=== PATIENT | female | born 1970 | race Caucasian/White ===

== ENCOUNTER 2022-03-01 05:24 | Emergency (ER) | payer SELFPAY ==
[2022-03-01] MEDS ORDERED: NA CHLORIDE 0.9% 1,000 ML ONE (07:42)
[2022-03-01] MEDS ORDERED: ONDANSETRON 4 MG/2 ML VIAL ONE (07:42)
[2022-03-01] MEDS ORDERED: FENTANYL CITR 100 MCG/2 ML ONE (07:42)
[2022-03-01 07:50] LABS: Absolute Lymphocytes (CBC) 2.4 K/uL (0.7-4.9); Hematocrit 37.4 % (36.0-45.0); Lymphocytes % 27.9 % (15.3-44.8); MCV 91.2 fL (80-100); MPV 8.4 fL (7.6-11.3)
--- NOTE | 2022-03-01 07:51 | RAD REPORT ---
EXAM DESCRIPTION: RAD - Chest Single View - 03/01/2022 6:49 am CLINICAL HISTORY: COUGH, abdominal pain COMPARISON: None TECHNIQUE: AP portable chest image was obtained 03/01/2022 6:49 am . FINDINGS: Lungs are clear. Heart and vasculature are normal. No measurable pleural effusion and no p neumothorax. No acute bony abnormality seen. No acute aortic findings suspected. IMPRESSION: No acute cardiopulmonary process.
[2022-03-01 07:59] LABS: Protime INR 0.88
[2022-03-01 08:22] LABS: Albumin 3.3 g/dL (3.4-5.0); Bilirubin Direct 0.1 mg/dL (0-0.2); Bilirubin Total 0.3 mg/dL (0.2-1.0); Magnesium 1.6 mg/dL (1.8-2.4); Potassium 3.9 mmol/L (3.5-5.1)
[2022-03-01] MEDS ORDERED: INSULIN -REGULAR HUMAN 50 UNIT/0.5 ML ML ONE (09:09)
--- NOTE | 2022-03-01 09:13 | RAD REPORT ---
EXAM DESCRIPTION: CT - Abdomen Pelvis W Contrast - 03/01/2022 8:49 am CLINICAL HISTORY: Abdominal pain COMPARISON: none. TECHNIQUE: Computed axial tomography of the abdomen pelvis was obtained. 100 cc Isovue-300 was admin istered intravenously. Oral contrast was not requested which limits evaluation of bowel and appendix All CT scans are performed using dose optimization technique as appropriate and may include automated exposure control or mA/KV adjustment according to patient size. FINDINGS: Fatty liver The Spleen, pancreas, adrenal and kidneys appear unremarkable. There is no evidence of diverticulitis. 11.5 centimeter cystic mass contains septations and soft tissue within the pelvis with its epicenter slightly to the right of midline. Bladder is compressed. No significant free fluid. Several small soft tissue structures are present within the anterior pericardial fat. The largest rosie sures 14 x 7 millimeters. These probably represent lymph nodes. IMPRESSION: 11.5 centimeter complex cystic pelvic mass probably arises from the right ovary. An ovar jose j neoplasm is considered most likely
--- NOTE | 2022-03-01 10:13 | RAD REPORT ---
EXAM DESCRIPTION: CT - Thorax Wo Con - 03/01/2022 9:44 am CLINICAL HISTORY: sob COMPARISON: none TECHNIQUE: Computed axial tomography of the chest was obtained. Contrast was not requested. All CT scans are performed using dose optimization technique as appropriate and may include automated exposure control or mA/KV adjustment according to patient size. FINDINGS: The evaluation of mediastinum, maxx and vessels is limited secondary to lack of IV contras t administration. Small cysts within the right lung. Lungs are otherwise clear. Sub centimeter pericardiac in mediastinal lymph nodes. No hilar lymphadenopathy A pleural effusion is not present. No pericardial effusion. Coronary arterial calcifications Sub centimeter pericardiac lymph nodes. IMPRESSION: Sub centimeter pericardiac and mediastinal lymph nodes are nonspecific Otherwise, no acute abnormality displayed
--- NOTE | 2022-03-01 11:09 | RAD REPORT ---
EXAM DESCRIPTION: USExtrem Venous W Compress Bil03/01/2022 10:33 am CLINICAL HISTORY: Leg swelling COMPARISON: none FINDINGS: The common femoral, superficial femoral, popliteal and posterior tibial veins bilaterally are compressible and demonstrate augmentation. Doppler demonstrates good flow. Nonspecific 2.2 x 1.6 x 0.9 centimeter left inguinal lymph node Grayscale, color and spectral analysis performed on all vessels IMPRESSION: No evidence of deep venous thrombosis involving either lower extremity.
--- NOTE | 2022-03-01 11:18 | EDPHYS ---
Physician Documentation [facility] Name: Noy Lang Age: 51 yrs Sex: Female : 1970 Arrival Date: 03/01/2022 Time: 05:43 Bed 6 Private MD: ED Physician Francisco Kincaid HPI: 03/01 07:38 This 51 yrs old Female presents to ER via Ambulatory with complaints of Pain All Over - kdr mostly right flank. 07:38 The patient has had right abdominal and flank pain for a number of months (4). She was kdr admitted to [place] in November for the same. She was diagnosed with a right adnexal mass which required follow-up but she has not done so to date. Now the pain is worse and she seeks further treatment. Onset: The symptoms/episode began/occurred at an unknown time. and became worse. Severity of symptoms: At their worst the symptoms were mild moderate just prior to arrival, in the emergency department the symptoms are unchanged. The patient has experienced similar episodes in the past, chronically, but today's symptoms are worse. The patient has not recently seen a physician, Patient was admitted to [place] in November for the same problem. Historical: - Allergies: 06:29 Codeine; bb - Home Meds: 06:29 Levemir U-100 Insulin 100 unit/mL subcutaneous soln [Active]; Humalog Sub-Q [Active]; bb Metformin Oral [Active]; Lasix Oral [Active]; gabapentin oral [Active]; Metoprolol Tartrate Oral [Active]; Neurontin Oral [Active]; Nitrostat SL [Active]; - PMHx: 06:29 Hypertensive disorder; Diabetes mellitus; Coronary atherosclerosis; Myocardial bb infarction; - PSHx: 06:29 heart stents; bb - Immunization history:: Pfizer x 3. - Social history:: Smoking status: Patient reports the use of cigarette tobacco products. ROS: 07:38 Constitutional: Negative for fever, chills, and weight loss, Eyes: Negative for injury, kdr pain, redness, and discharge, ENT: Negative for injury, pain, and discharge, Neck: Negative for injury, pain, and swelling, Cardiovascular: Negative for chest pain, palpitations, and edema, Respiratory: Negative for shortness of breath, cough, wheezing, and pleuritic chest pain, : Negative for injury, bleeding, discharge, and swelling, MS/Extremity: Negative for injury and deformity, Skin: Negative for injury, rash, and discoloration, Neuro: Negative for headache, weakness, numbness, tingling, and seizure activity. Psych: Negative for depression, anxiety, suicide ideation, homicidal ideation, and hallucinations, Allergy/Immunology: Negative for hives, rash, and allergies, Endocrine: Negative for neck swelling, polydipsia, polyuria, polyphagia, and marked weight changes, Hematologic/Lymphatic: Negative for swollen nodes, abnormal bleeding, and unusual bruising. 07:38 Abdomen/GI: Positive for abdominal pain, nausea, Negative for diarrhea, constipation, abdominal cramps, abdominal distension, anorexia, dysphagia, hematemesis, black/tarry stool, rectal pain, rectal bleeding. 07:38 Back: Positive for flank pain, on the right. Exam: 07:38 Constitutional: This is a well developed, well nourished patient who is awake, alert, kdr and in no acute distress. Head/Face: Normocephalic, atraumatic. Eyes: Pupils equal round and reactive to light, extra-ocular motions intact. Lids and lashes normal. Conjunctiva and sclera are non-icteric and not injected. Cornea within normal limits. Periorbital areas with no swelling, redness, or edema. Neck: Trachea midline, no thyromegaly or masses palpated, and no cervical lymphadenopathy. Supple, full range of motion without nuchal rigidity, or vertebral point tenderness. No Meningismus. Chest/axilla: Normal chest wall appearance and motion. Nontender with no deformity. No lesions are appreciated. Cardiovascular: Regular rate and rhythm with a normal S1 and S2. No gallops, murmurs, or rubs. Normal PMI, no JVD. No pulse deficits. Respiratory: Lungs have equal breath sounds bilaterally, clear to auscultation and percussion. No rales, rhonchi or wheezes noted. No increased work of breathing, no retractions or nasal flaring. Back: No spinal tenderness. No costovertebral tenderness. Full range of motion. Skin: Warm, dry with normal turgor. Normal color with no rashes, no lesions, and no evidence of cellulitis. MS/ Extremity: Pulses equal, no cyanosis. Neurovascular intact. Full, normal range of motion. Neuro: Awake and alert, GCS 15, oriented to person, place, time, and situation. Cranial nerves II-XII grossly intact. Motor strength 5/5 in all extremities. Sensory grossly intact. Cerebellar exam normal. Normal gait. Psych: Awake, alert, with orientation to person, place and time. Behavior, mood, and affect are within normal limits. 07:38 Abdomen/GI: Inspection: obese Bowel sounds: active, Palpation: soft. 09:57 ECG was reviewed by the Attending Physician. kdr Vital Signs: 06:27 BP 159 / 66; Pulse 78; Resp 16 S; Temp 97.7(TE); Pulse Ox 98% on R/A; Weight 76.66 kg bb (R); Height 5 ft. 4 in. (162.56 cm) (R); Pain 7/10; 07:45 BP 164 / 73; Pulse 63; Resp 16; Pulse Ox 98% on R/A; vg1 09:01 BP 159 / 69; Pulse 65; Resp 16; Pulse Ox 99% on R/A; vg1 06:27 Body Mass Index 29.01 (76.66 kg, 162.56 cm) bb MDM: 06:26 Patient medically screened. [facility] 07:38 Data reviewed: vital signs, nurses notes, lab test result(s), radiologic studies. kdr Counseling: I had a detailed discussion with the patient and/or guardian regarding: the historical points, exam findings, and any diagnostic results supporting the discharge/admit diagnosis, lab results, radiology results, the need for outpatient follow up. 03/01 06:28 Order name: Basic Metabolic Panel; Complete Time: 08:38 [facility] 03/01 06:28 Order name: CBC with Diff; Complete Time: 08:38 [facility] 03/01 06:28 Order name: D-Dimer [facility] 03/01 06:28 Order name: LFT's; Complete Time: 08:38 [facility] 03/01 06:28 Order name: Magnesium; Complete Time: 08:38 [facility] 03/01 06:28 Order name: NT PRO-BNP; Complete Time: 08:38 [facility] 03/01 06:28 Order name: PT-INR [facility] 03/01 06:28 Order name: Troponin HS; Complete Time: 08:38 [facility] 03/01 06:28 Order name: XRAY Chest (1 view); Complete Time: 08:38 [facility] 03/01 06:28 Order name: Lipase; Complete Time: 08:38 [facility] 03/01 06:28 Order name: SARS-COV-2 RT PCR (Document "Date of Onset" if Symptomatic); Complete Time: cher 09:20 03/01 06:28 Order name: Flu; Complete Time: 10:39 [facility] 03/01 06:28 Order name: CT Abd/Pelvis - IV Contrast Only; Complete Time: 09:20 [facility] 03/01 08:09 Order name: US Extremity Venous W Compression Trae; Complete Time: 11:15 [facility] 03/01 06:28 Order name: EKG; Complete Time: 06:29 [facility] 03/01 06:28 Order name: Cardiac monitoring; Complete Time: 07:47 [facility] 03/01 06:28 Order name: EKG - Nurse/Tech; Complete Time: 07:47 [facility] 03/01 06:28 Order name: IV Saline Lock; Complete Time: 07:44 [facility] 03/01 06:28 Order name: Labs collected and sent; Complete Time: 07:44 [facility] 03/01 06:28 Order name: O2 Per Protocol; Complete Time: 07:47 [facility] 03/01 06:28 Order name: O2 Sat Monitoring; Complete Time: 07:47 [facility] 03/01 09:37 Order name: Thorax Wo Con; Complete Time: 10:39 EDMS EC:57 Rate is 57 beats/min. Rhythm is regular, Sinus bradycardia with No ectopy. QRS Home is kdr Normal. AR interval is normal. QRS interval is normal. QT interval is normal. Clinical impression: Sinus bradycardia. Administered Medications: 07:42 Drug: NS 0.9% 1000 ml Route: IV; Rate: 1 bolus; Site: left antecubital; vg1 09:14 Follow up: IV Status: Completed infusion; IV Intake: 1000ml vg1 11:26 Follow up: IV Status: Completed infusion; IV Intake: 1000ml vg1 07:42 Drug: Zofran (Ondansetron) 4 mg Route: IVP; Site: left antecubital; vg1 09:01 Follow up: Response: No adverse reaction; Marked relief of symptoms vg1 07:44 Drug: fentaNYL (PF) 50 mcg Route: IVP; Site: left antecubital; vg1 09:01 Follow up: Response: No adverse reaction; Pain is decreased; RASS: Alert and Calm (0) vg1 09:03 Drug: Insulin Regular Human 12 units {Co-Signature: vg1 (Sophie Felton RN).} Route: jl7 IVP; Site: left antecubital; Disposition Summary: 03/01/22 11:17 Discharge Ordered Location: Home kdr Problem: new kdr Symptoms: have improved kdr Condition: Stable kdr Diagnosis - Lower abdominal pain, unspecified - right lateral kdr - Right adnexal mass kdr Followup: kdr - With: Private Physician - When: 2 - 3 days - Reason: If symptoms return, Further diagnostic work-up, Recheck today's complaints, Continuance of care, Re-evaluation by your physician Discharge Instructions: - Discharge Summary Sheet kdr - Ovarian Cancer kdr Forms: - Medication Reconciliation Form kdr - Thank You Letter kdr - Prescription Opioid Use kdr Prescriptions: - Tramadol 50 mg Oral Tablet - take 1 tablet by ORAL route every 8 hours As needed as needed; 20 tablet; kdr Refills: 0, Product Selection Permitted Signatures: Dispatcher [employer] EDMS Alvarez Magaña MD MD cha Rittger, Kevin, MD MD kdr Ballard, Brenda, RN RN bb Zofia Niño RN RN jl7 Sophie Felton RN RN vg1 Sophie Felton RN vg1 Corrections: (The following items were deleted from the chart) 09:37 09:22 Chest For PE Angio+CT.RAD.BRZ ordered. EDMS EDMS
--- NOTE | 2022-03-01 11:18 | ER ---
Nurse's Notes [facility] Name: Noy Lang Age: 51 yrs Sex: Female : 1970 Arrival Date: 03/01/2022 Time: 05:43 Bed 6 Private MD: Diagnosis: Lower abdominal pain, unspecified-right lateral;Right adnexal mass Presentation: 03/01 06:27 Chief complaint: Patient states: she is having abdominal pain, sciatic nerve pain since bb last night recently diagnosed with and ovarian cyst and was seen at [facility]. Coronavirus screen: At this time, the client does not indicate any symptoms associated with coronavirus-19. Ebola Screen: No symptoms or risks identified at this time. Initial Sepsis Screen: Does the patient meet any 2 criteria? No. Patient's initial sepsis screen is negative. Does the patient have a suspected source of infection? No. Patient's initial sepsis screen is negative. Risk Assessment: Do you want to hurt yourself or someone else? Patient reports no desire to harm self or others. Onset of symptoms was February 28, 2022. 06:27 Method Of Arrival: Ambulatory 06:27 Acuity: ARVIND 3 bb Historical: - Allergies: 06:29 Codeine; bb - Home Meds: 06:29 Levemir U-100 Insulin 100 unit/mL subcutaneous soln [Active]; Humalog Sub-Q [Active]; bb Metformin Oral [Active]; Lasix Oral [Active]; gabapentin oral [Active]; Metoprolol Tartrate Oral [Active]; Neurontin Oral [Active]; Nitrostat SL [Active]; - PMHx: 06:29 Hypertensive disorder; Diabetes mellitus; Coronary atherosclerosis; Myocardial bb infarction; - PSHx: 06:29 heart stents; bb - Immunization history:: Pfizer x 3. - Social history:: Smoking status: Patient reports the use of cigarette tobacco products. Screenin:45 Abuse screen: Denies threats or abuse. Nutritional screening: No deficits noted. vg1 Tuberculosis screening: No symptoms or risk factors identified. Fall Risk No fall in past 12 months (0 pts). No secondary diagnosis (0 pts). IV access (20 points). Ambulatory Aid- None/Bed Rest/Nurse Assist (0 pts). Gait- Normal/Bed Rest/Wheelchair (0 pts) Mental Status- Oriented to own ability (0 pts). Total Orta Fall Scale indicates No Risk (0-24 pts). Assessment: 07:35 General: Appears in no apparent distress. uncomfortable, Behavior is calm, cooperative. vg1 Pain: Complains of pain in posterior aspect of right lateral abdomen and right lower quadrant Pain currently is 7 out of 10 on a pain scale. Pain began 1 day ago. Neuro: Level of Consciousness is awake, alert, obeys commands, Oriented to person, place, time, situation. Cardiovascular: Patient's skin is warm and dry. Respiratory: Airway is patent Respiratory effort is even, unlabored. GI: Reports nausea, vomiting, since today. : No signs and/or symptoms were reported regarding the genitourinary system. EENT: No signs and/or symptoms were reported regarding the EENT system. Derm: Skin is intact, is healthy with good turgor. Musculoskeletal: Circulation, motion, and sensation intact. 09:01 Reassessment: Patient appears in no apparent distress at this time. Patient and/or vg1 family updated on plan of care and expected duration. Pain level reassessed. Patient is alert, oriented x 3, equal unlabored respirations, skin warm/dry/pink. 09:57 Reassessment: Patient appears in no apparent distress at this time. No changes from vg1 previously documented assessment. Patient and/or family updated on plan of care and expected duration. Pain level reassessed. Patient is alert, oriented x 3, equal unlabored respirations, skin warm/dry/pink. 11:10 Reassessment: Patient appears in no apparent distress at this time. Patient and/or vg1 family updated on plan of care and expected duration. Pain level reassessed. Patient is alert, oriented x 3, equal unlabored respirations, skin warm/dry/pink. Vital Signs: 06:27 BP 159 / 66; Pulse 78; Resp 16 S; Temp 97.7(TE); Pulse Ox 98% on R/A; Weight 76.66 kg bb (R); Height 5 ft. 4 in. (162.56 cm) (R); Pain 7/10; 07:45 BP 164 / 73; Pulse 63; Resp 16; Pulse Ox 98% on R/A; vg1 09:01 BP 159 / 69; Pulse 65; Resp 16; Pulse Ox 99% on R/A; vg1 06:27 Body Mass Index 29.01 (76.66 kg, 162.56 cm) bb ED Course: 05:43 Patient arrived in ED. ja2 06:26 Alvarez Magaña MD is Attending Physician. cher 06:29 Triage completed. bb 06:29 Arm band placed on Patient placed in an exam room, on a stretcher, on pulse oximetry. bb 06:36 Renzo Rizzo, RN is Primary Nurse. as6 06:51 XRAY Chest (1 view) In Process Unspecified. EDMS 07:07 Attending Physician role handed off by Alvarez Magaña MD kdr 07:07 Francisco Kincaid MD is Attending Physician. kdr 07:43 Initial lab(s) drawn, by ky, sent to lab. COVID swab sent to lab. Flu and/or RSV swab jw7 sent to lab. Inserted saline lock: 20 gauge in left antecubital area, using aseptic technique. Blood collected. 07:44 Flu Sent. jw7 07:44 SARS-COV-2 RT PCR (Document "Date of Onset" if Symptomatic) Sent. jw7 07:44 Basic Metabolic Panel Sent. jw7 07:44 CBC with Diff Sent. jw7 07:44 D-Dimer Sent. jw7 07:44 LFT's Sent. jw7 07:44 Magnesium Sent. jw7 07:44 NT PRO-BNP Sent. jw7 07:44 PT-INR Sent. jw7 07:45 Patient has correct armband on for positive identification. Bed in low position. Call vg1 light in reach. Side rails up X 1. 07:45 Troponin HS Sent. jw7 07:45 No provider procedures requiring assistance completed. vg1 07:47 Primary Nurse role handed off by Renzo Rizzo, RN vg1 07:47 Sophie Felton, RN is Primary Nurse. vg1 07:56 EKG done, by ED staff, reviewed by Francisco Kincaid MD. jw7 08:51 CT Abd/Pelvis - IV Contrast Only In Process Unspecified. EDMS 09:45 Thorax Wo Con In Process Unspecified. EDMS 10:35 US Extremity Venous W Compression Trea In Process Unspecified. EDMS 11:25 IV discontinued, intact, bleeding controlled, No redness/swelling at site. Pressure vg1 dressing applied. Administered Medications: 07:42 Drug: NS 0.9% 1000 ml Route: IV; Rate: 1 bolus; Site: left antecubital; vg1 09:14 Follow up: IV Status: Completed infusion; IV Intake: 1000ml vg1 11:26 Follow up: IV Status: Completed infusion; IV Intake: 1000ml vg1 07:42 Drug: Zofran (Ondansetron) 4 mg Route: IVP; Site: left antecubital; vg1 09:01 Follow up: Response: No adverse reaction; Marked relief of symptoms vg1 07:44 Drug: fentaNYL (PF) 50 mcg Route: IVP; Site: left antecubital; vg1 09:01 Follow up: Response: No adverse reaction; Pain is decreased; RASS: Alert and Calm (0) vg1 09:03 Drug: Insulin Regular Human 12 units {Co-Signature: vg1 (Sophie Felton RN).} Route: jl7 IVP; Site: left antecubital; Medication: 07:45 VIS not applicable for this client. vg1 Intake: 09:14 IV: 1000ml; Total: 1000ml. vg1 11:26 IV: 1000ml; Total: 2000ml. vg1 Outcome: 11:17 Discharge ordered by . kdr 11:26 Discharged to home ambulatory. vg1 11:26 Condition: good 11:26 Discharge instructions given to patient, Instructed on discharge instructions, follow up and referral plans. medication usage, Demonstrated understanding of instructions, follow-up care, medications, Prescriptions given X 1. 11:27 Patient left the ED. vg1 Signatures: Dispatcher [employer] EDAlvarez Hicks MD MD cha Rittger, Kevin, MD MD kdr Ballard, Brenda, RN RN bb Leal, Jahala, RN RN jl7 Sophie Felton RN RN vg1 Meeta Stoner Ashby, RN RN as6 Dora Serna7 Sophie Felton RN vg1
[2022-03-01 11:37] VITALS: TEMP 97.7
[2022-03-01 11:43] VITALS: BP 159/69; O2SAT 99
--- NOTE | 2022-03-02 07:58 | EKG ---
Test Date: 2022-03-01 Test Time: 07:55:08 Car Whacker: SHELBIE MEASUREMENT RESULTS: Intervals: Rate: 57 NV: 150 QRSD: 96 QT: 436 QTc: 424 [place]: P: 66 NV: 150 QRS: -33 T: 63 INTERPRETIVE STATEMENTS: Sinus bradycardia Left axis deviation Moderate voltage criteria for LVH, may be normal variant ST abnormality, possible digitalis effect Abnormal ECG Compared to ECG 09/05/2010 08:21:01 Left-axis deviation now present Left ventricular hypertrophy now present ST (T wave) deviation now present Sinus rhythm no longer present Sinus arrhythmia no longer present Electronically Signed On 03-02-22 07:55:32 CDT by Tr Victor
== END 2022-03-01 11:27 | disposition home or self-care (01) ==
LOC: ER 05:24
DX: R10.31 Right lower quadrant pain (principal); N83.201 Unspecified ovarian cyst, right side; M54.30 Sciatica, unspecified side; I10 Essential (primary) hypertension; E11.9 Type 2 diabetes mellitus without complications; I25.10 Atherosclerotic heart disease of native coronary artery without angina pectoris; I21.9 Acute myocardial infarction, unspecified; Z72.0 Tobacco use; Z88.5 Allergy status to narcotic agent; Z20.822 Contact with and (suspected) exposure to COVID-19
CPT/HCPCS: 36415; 71045; 71250; 74177; 80048; 80076; 83690; 83735; 83880; 84484; 85025; 85379; 85610; 87804; 93005; 93970; 96361; 96374; 96375; 99284; J1815; J2405; J3010; J7030; Q9967; U0003

== ENCOUNTER 2022-04-26 22:23 | Emergency (ER) | payer BC ==
--- OUTSIDE RECORDS SUMMARY | 2022-04-26 22:31 | XMS REPORT | Continuity of Care Document ---
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 2 tablet 59 (two) times a day with meals. furosemide 2021-0 Yes 20mg QD Take 20 mg U T (Lasix) 20 5-11 by mouth 1 Hea lth MG tablet 11:44: (one) time 59 each day. gabapentin 2021-0 Yes 400mg Q.[id number] Take 400 UT (Neurontin) 5-11 [id number] mg by H ealth 400 MG 11:44: 3D mouth 3 capsule 59 (three) times a day. FLUoxetine 2022-0 Yes 40mg QD Take 40 mg U T (PROzac) 40 5-11 by mouth 1 He alth MG capsule 11:44: (one) time 59 each day. metFORMIN 2022-0 Yes 850mg Take 850 UT (Glucophage 5-11 mg by Health ) 850 MG 11:44: mouth 2 tablet 59 (two) times a day with meals. furosemide 2022-0 Yes 20mg QD Take 20 mg U T (Lasix) 20 5-11 by mouth 1 Hea lth MG tablet 11:44: (one) time 59 each day. gabapentin 2022-0 Yes 400mg Q.[id number] Take 400 UT (Neurontin) 5-11 [id number] mg by H ealth 400 MG 11:44: 3D mouth 3 capsule 59 (three) times a day. FLUoxetine 2022-0 Yes 40mg QD Take 40 mg U T (PROzac) 40 5-11 by mouth 1 He alth MG capsule 11:44: (one) time 59 each day. metFORMIN 2022-0 Yes 850mg Take 850 UT (Glucophage 5-11 mg by Health ) 850 MG 11:44: mouth 2 tablet 59 (two) times a day with meals. furosemide 2022-0 Yes 20mg QD Take 20 mg U T (Lasix) 20 5-11 by mouth 1 Hea lth MG tablet 11:44: (one) time 59 each day. gabapentin 2022-0 Yes 400mg Q.[id number] Take 400 UT (Neurontin) 5-11 [id number] mg by H ealth 400 MG 11:44: 3D mouth 3 capsule 59 (three) times a day. FLUoxetine 2022-0 Yes 40mg QD Take 40 mg U T (PROzac) 40 5-11 by mouth 1 He alth MG capsule 11:44: (one) time 59 each day. metFORMIN 2022-0 Yes 850mg Take 850 UT (Glucophage 5-11 mg by Health ) 850 MG 11:44: mouth 2 tablet 59 (two) times a day with meals. furosemide 2022-0 Yes 20mg QD Take 20 mg U T (Lasix) 20 5-11 by mouth 1 Hea lth MG tablet 11:44: (one) time 59 each day. gabapentin Yes 400mg Q.[id number] Take 400 UT (Neurontin) 5-11 [id number] mg by H ealth 400 MG 11:44: 3D mouth 3 capsule 59 (three) times a day. FLUoxetine Yes 40mg QD Take 40 mg U T (PROzac) 40 5-11 by mouth 1 He alth MG capsule 11:44: (one) time 59 each day. metoprolol 2021- No 25mg QD Take 25 mg Malik tartrate 12-1524 by mouth Health (LOPRESSOR) 00:00: 00:00 daily 25 mg 00 :00 tablet furosemide Yes Coronary 20mg QD Take 1 H arris (LASIX) 20 11-30 artery tablet by He alth mg tablet 00:00: disease mouth 00 involving daily [place] heart without angina pectoris, unspecified vessel or lesion type metFORMIN 2021- No Uncontrolle 850mg Q.5D Take 1 King (GLUCOPHAGE 11-30 d type 2 tablet by [facility] ) 850 mg 00:00: 00:00 diabetes mouth 2 tablet 00 :00 mellitus times with daily hyperglycem (with ia meals) metoprolol 2021- No Primary 25mg QD Take 1 H arris succinate 11-30 hypertensio tablet by [facility] (TOPROL XL) 00:00: 00:00 n mouth 25 mg 00 :00 daily extended release tablet gabapentin 2021- No Neuropathy 400mg Q.5D Take 1 Malik (NEURONTIN) 11-30- capsule by H ealth 400 mg 00:00: 00:00 mouth 2 capsule 00 :00 (two) times a day aspirin Yes Coronary 81mg QD Chew and Alonzo rris (ASPIRIN) 11-27 artery swallow 1 Hea lth 81 mg 00:00: disease tablet by chewable 00 involving mouth tablet [place] daily heart without angina pectoris, unspecified vessel or lesion type tropicamide 2021- No Uncontrolle 1[drp] Instill 1 King (MYDRIACYL) 11-27 09-28 d type 2 Drop in Health 0.5 % 00:00: 23:59 diabetes each eye ophthalmic 00 :00 mellitus once as solution with needed for hyperglycem up to 1 ia dose (for poor retina scan image) insulin 2021- No Uncontrolle 60U Q.5D Inject 60 King detemir 11-27 d type 2 Units Health U-100 00:00: 00:00 diabetes under the (LEVEMIR 00 :00 mellitus skin 2 U-100 with times INSULIN) hyperglycem daily 100 unit/mL ia injection terconazole 2021- No Vaginal Insert 1 Malik (TERAZOL 7) 11-27 itching applicator Health 0.4 % 00:00: 23:59 ful vaginal 00 :00 vaginally cream every night at bedtime for 7 days. metFORMIN 2021- No Uncontrolle 850mg Q.5D Take 1 Malik (GLUCOPHAGE 11-27 d type 2 tablet by [facility] ) 850 mg 00:00: 00:00 diabetes mouth 2 tablet 00 :00 mellitus times with daily hyperglycem (with ia meals) gabapentin 2021- No Neuropathy 400mg Q.5D Take 1 Malik (NEURONTIN) 11-27 capsule by H ealth 400 mg 00:00: 00:00 mouth 2 capsule 00 :00 (two) times a day furosemide 2021- No Coronary 20mg QD Take 1 [facility] (LASIX) 20 11-27 artery tablet by H ealth mg tablet 00:00: 00:00 disease mouth 00 :00 involving daily [place] heart without angina pectoris, unspecified vessel or lesion type metoprolol 2021- No Primary 25mg QD Take 1 H arris succinate 11-27 hypertensio tablet by [facility] (TOPROL XL) 00:00: 00:00 n mouth 25 mg 00 :00 daily extended release tablet insulin 2021- No Uncontrolle 10U Inject 10 Malik REGULAR 100 11-27 d type 2 Units He alth unit/mL 00:00: 23:59 diabetes under the injection 00 :00 mellitus skin once with for 1 dose hyperglycem ia INSULIN 2021- No Preventativ Use to Malik SYRINGE 1 11-27 e [employer] inject Hea lth mL 00:00: 23:59 care medication 30GX5/16" 00 :00 once for 1 (TRUEPLUS dose. Use INSULIN 1ML a new 30GX5/16") syringe syringe-nee each time. dle (FLUOCINONI 2019-08 No Sammie Apply Le gacy DE) 0.05 % 09-01 Kiko Pitt Twice a Communi CREA 00:00: 00:00 Day to ty 00 :00 affected Health areas for 10 days (HYDROXYZIN 2019-08 No Sammie TAKE 1 TAB [facility] E HCL) 50 09-01 Kiko Pitt By Mouth Communi MG TABS 00:00: 00:00 BID As ty 00 :00 Needed Health ITCHINESS acyclovir 2019-08 Yes Take 1 Malik (ZOVIRAX) 0-22 tablet(s) Healt h 800 mg 00:00: by mouth tablet 00 Twice a day for HSV suppressio n (LISINOPRIL Yes Hoa 1{Table 1xD TAKE 1 [facility] ) 20 MG 2-12 Ad t} TABLET BY Commu ni TABS 00:00: MOUTH ONCE ty 00 DAILY Health (ONDANSETRO 2017-08 Yes Hoa 1{Table 3xD 1 tablet [facility] N HCL) 4 MG 2-17 Ad t} every 8 Com samantha TABS 00:00: hours as ty 00 needed for Health nausea (FLUOXETINE Yes Hoa 1{Capsu 1xD TAKE 1 [facility] HCL) 40 MG 9-04 Ad le} CAPSULE BY C ommuni CAPS 00:00: MOUTH ONCE ty 00 DAILY Health BROMFED DM Yes Clarissa 10 mL Leg acy (PSEUDOEPH- 3-02 Shrikanth every four Communi BROMPHEN-DM 00:00: hours as ty ) 30-2-10 00 needed for Heal th MG/5ML SYRP cough/katrin estion (CETIRIZINE Yes Clarissa Take 1 L egacy HCL) 10 MG 3-02 Shrikanth tablet Co mmuni TABS 00:00: orally ty 00 once daily Health TESSALON Yes Kate 1 by mouth [facility] PERLES 4-20 Owen 3 times a Communi (BENZONATAT 00:00: day as ty E) 100 MG 00 needed for Heal th CAPS cough (GABAPENTIN 2015-08 Yes Clarissa 1 by mouth [facility] ) 300 MG 2-17 Shrikanth two times C ommuni CAPS 00:00: a day ty 00 [facility] mometasone 2015-08 Yes Seasonal 1{spray QD 1 Mineral by King (NASONEX) 1-30 allergies } each Healt h 50 00:00: nostril mcg/actuati 00 route on nasal daily. spray azithromyci 2015-08- No Acute URI Take 2 King n 09-26- tablets by [facility] (ZITHROMAX) 00:00: 00:00 mouth on 250 mg 00 :00 the first tablet day, then take one tablet every day for the next 4 days. cetirizine 2015-08- No Acute URI 10mg QD Take 1 [facility] (ZYRTEC) 10 09-26 tablet by alth mg tablet 00:00: 00:00 mouth 00 :00 daily. (METFORMIN 2015-08 Yes Hoa 1{Table 2xD 1 by mouth [facility] HCL) 1000 0-19 Ad t} twice a Commu ni MG TABS 00:00: day ty 00 [facility] 1ST TIER 2015-08 Yes Clarissa use 5 Leg[facility] y UNIFINE 0-19 Shrikanth times Commun i PENTIPS 00:00: daily ty (INSULIN 00 Health PEN NEEDLE) 31G X 5 MM INSULIN 2015-08 Yes Clarissa use as Leg[facility] y SYRINGE 0-19 Shrikanth directed, Co mmuni (INSULIN 00:00: use 5 x ty SYRINGE-NEE 00 daily Health DLE U-100) 29G X 1/2" 1 ML (SIMVASTATI 2015-08 Yes Clarissa 1 By Mouth [facility] N) 20 MG 0-19 Shrikanth take at Com samantha TABS 00:00: bedtime ty 00 [facility] HUMALOG 2015-08 Yes Clarsisa inject 25 [place] [facility] (INSULIN 0-19 Shrikanth units Commu ni LISPRO) 100 00:00: Three ty UNIT/ML 00 Times a Health SOCT Day with meals. LANTUS 2015-08 Yes Clarissa inject 80 Leg acy (INSULIN 0-19 Shrikanth units Commu ni GLARGINE) 00:00: Twice a ty 100 UNIT/ML 00 Day Health SOLN azithromyci 2021- No Tobacco use Take 2 King palma 05-27 disorder tablets by [facility] (ZITHROMAX) 00:00: 00:00 mouth on 250 mg 00 :00 the first tablet day, then take one tablet every day for the next 4 days. budesonide- 2021- No Reactive 2{puff} Q.5D Inhale 2 Malik formoterol 830 08-16 airway Puffs by alth (SYMBICORT) 00:00: 00:00 disease, mouth 2 80-4.5 00 :00 mild times mcg/actuati intermitten daily on inhaler t, Inhale 2 uncomplicat puff by ed mouth 2 time a day. Rinse mouth after each use.. INSULIN Yes Medication Use to Alonzo rris SYRINGE 1mL 03-09 refill inject [facility] 30GX5/16" 00:00: medication syringe-nee 00 3 times dle daily. Use a new syringe each time.. blood [facility] sugars 3 Health test strips 00:00: times a 00 day. cetirizine 2021- No Seasonal 10mg QD Take 1 Malik (ZYRTEC) 10 03-09 allergies tablet by [facility] mg tablet 00:00: 00:00 mouth 00 :00 daily. lisinopril 2021- No Medication 2.5mg QD Take 1 Malik (PRINIVIL, 03-09 refill tablet by uzma DEVINE) 00:00: 00:00 mouth 2.5 mg 00 :00 daily. tablet atorvastati 2021- No Medication 40mg Take 1 Malik n (LIPITOR) 03-09 refill tablet by [facility] 40 mg 00:00: 00:00 mouth at tablet 00 :00 bedtime nightly. FLUoxetine 2021- No Medication 60mg QD Take 3 Malik (PROZAC) 20 03-09 [facility] capsule 00:00: 00:00 by mouth 00 :00 daily. metFORMIN 2021- No Medication 850mg Q.5D Take 1 Malik (GLUCOPHAGE 03-09 refill tablet by [facility] ) 850 mg 00:00: 00:00 mouth 2 tablet 00 :00 times daily (with meals). metoprolol 2016-0 2022- No Medication 12.5mg Q.5D Take 1/2 ( Malik tartrate 03-09 refill 0.5) Health (LOPRESSOR) 00:00: 00:00 tablets by 25 mg 00 :00 mouth 2 tablet times daily. gabapentin 2021- No Medication 300mg Take 1 Malik (NEURONTIN) 03-09 refill capsule by [facility] 300 mg 00:00: 00:00 mouth 3 capsule 00 :00 times daily. insulin 2021- No Diabetes Sliding Alonzo rris lispro 01-22 mellitus scale If Heal th (HUMALOG) 00:00: 00:00 without glucose 100 unit/mL 00 :00 complicatio >200<250 injection n inject 3 Units If >250<300 inject 6 Units If >300<35 0 inject 9Units Check blood sugar 30 minutes before meals.. ergocalcife Yes Diabetes [id number] Take 1 Trimble rol 27 mellitus capsule by [facility] (VITAMIN 00:00: due to mouth D2) 50,000 00 underlying weekly. unit condition capsule with diabetic nephropathy gabapentin 2021- No Hip pain 300mg Q.5D Take 1 Malik (NEURONTIN) 11-22 capsule by ealt 300 mg 00:00: 00:00 mouth 2 capsule 00 :00 times daily. predniSONE 2021- No Diabetes Take 3 Malik (DELTASONE) 04-23 mellitus tabs daily Health 20 mg 00:00: 00:00 due to for three tablet 00 :00 underlying days then condition 2 tabs with daily for diabetic three days nephropathy then take 1 tab daily for 7 days. 1 mL 2021- No Throat pain Take 5 ml Trimble diphenhydrA 04-23 by mouth Hea lth MINE 00:00: 00:00 twice syrup-1 mL 00 :00 daily.comp lidocaine ound at mucosal :[place] solution-1 Pharmacy mL nystatin oral suspension oral suspension- CMPD ibuprofen 2021- No Acute 800mg Take 1 Alberto ris (MOTRIN) 10-25 tonsillitis tablet by [facility] 800 mg 00:00: 00:00 , mouth tablet 00 :00 unspecified every 8 etiology hours as needed for Pain. cetirizine Yes Acute 10mg QD Take 1 Joe is (ZYRTEC) 10 2-25 pharyngitis tablet by [facility] mg tablet 00:00: , mouth 00 unspecified daily. etiology blood Yes DM w/o USE Malik glucose 2-11 complicatio DIRECTED 2 [facility] (BLOOD 00:00: n type II TIMES A GLUCOSE 00 DAY TEST STRIPS) test strips mometasone 2014-08 Yes Subacute 2{spray QD use 2 Malik (NASONEX) 1-19 maxillary } Sprays by [facility] 50 00:00: sinusitis each mcg/actuati 00 nostril on nasal route spray daily. cetirizine 2014-08 Yes Subacute 10mg QD Take 1 H arris (ZYRTEC) 10 1-19 maxillary tablet by [facility] mg tablet 00:00: sinusitis mouth 00 daily. nitroGLYCER 2014-08- No Ischemic Dissolve 1 Malik IN 09-16 heart tablet [facility] (NITROSTAT) 00:00: 00:00 disease under the 0.4 mg 00 :00 tongue sublingual every 5 tablet minutes as needed, up to 3 times. If chest pain persists, call 911. albuterol 2014-08- No Reactive 2{puff} Inhale 2 Malik (VENTOLIN 09-1616 airway Puffs by [facility] HFA,PROVENT 00:00: 00:00 disease, mouth 4 IL 00 :00 mild times HFA,PROAIR intermitten daily as HFA) 90 t, needed for mcg/actuati uncomplicat Wheezing. on inhaler ed aspirin 2014-08- No Essential 81mg QD Chew and King (ASPIRIN) 09-16 04 hypertensio swallow 1 [facility] 81 mg 00:00: 00:00 n, benign tablet by chewable 00 :00 mouth tablet daily. loratadine 2014-08 Yes Acute 10mg QD Take 1 Joe is (CLARITIN) 0-13 bronchitis tablet by [facility] 10 mg 00:00: due to mouth tablet 00 other daily. specified organisms famotidine 2014-08 Yes Medication 40mg QD Take 2 Malik (PEPCID) 20 0-12 refill tablets by [facility] mg tablet 00:00: mouth 00 daily. loratadine 2014-08- No Other 10mg QD Take 1 Alberto ris (CLARITIN) 0-12 08-26 allergic tablet by [facility] 10 mg 00:00: 00:00 rhinitis mouth tablet 00 :00 daily Take 1 tablet by mouth once a day.. triamcinolo Yes Type II or Q.5D Apply to King ne 05-27 unspecified affected Heal th (KENALOG) 00:00: type area 2 0.025 % 00 diabetes times topical mellitus daily. cream without mention of complicatio n, not stated as uncontrolle d insulin No Type II or Inject 80 Malik glargine 05-27 04 unspecified units He alth (LANTUS) 00:00: 00:00 type under the 100 unit/mL 00 :00 diabetes skin every injection mellitus evening. without mention of complicatio n, not stated as uncontrolle d hydrocortis Yes Contact Q.5D Apply to Malik cox monett 2.5 % 03-05 dermatitis affected [facility] ointment 00:00: area 2 00 times daily. guaiFENesin 2021- No Bronchitis, 600mg Q.5D Take 1 Trimble SR 02-20 not tablet by [facility] (MUCINEX) 00:00: 00:00 specified mouth 2 600 mg 00 :00 as acute or times extended chronic daily Take release 1 tablet tablet twice a day as needed for cough and chest congestion .. INSULIN Yes Type II or Use to Alonzo rris SYRINGE 1mL 18 unspecified inject Health 30GX5/16" 00:00: type insulin syringe-nee diabetes Use as dle mellitus directed. without Use a new mention of syringe complicatio each time. n, not stated as uncontrolle d mometasone 2021- No Allergic 2{spray QD 2 Sprays Malik (NASONEX) 01-22 rhinitis, } by each H ealth 50 00:00: 00:00 cause nostril mcg/actuati 00 :00 unspecified route on nasal daily. spray fluorouraci 2021- No Actinic Q.5D Apply to [place] (EFUDEX) 09-10 keratosis affected Health 5 % topical 00:00: 00:00 area 2 cream 00 :00 times daily For 2 weeks or till effect. glucose Yes Type II or 4 times H arris blood test 3-21 unspecified weekly. Health (PRECISION 00:00: type XTRA) strip 00 diabetes mellitus without mention of complicatio n, not stated as uncontrolle d LANCETS 0 Yes Type II or 4 times H arris 3-21 [facility] 00 diabetes mellitus without mention of complicatio n, not stated as uncontrolle d Immunizations Ordered Immunization Filled Immunization Date Status Commen ts Source Name Name flu vax 2017-07-30 Completed [facility] 12:28:45 Health flu [facility] 2016-06-16 [facility] Influenza Vaccine 2015-05-27 Completed [facility] 00:00:00 Influenza Vaccine 2014-06-19 Completed [facility] 00:00:00 PPV 23 Pneumococcal 2012-08-31 Completed [facility] Polysaccaride 00:00:00 Influenza Vaccine 2012-08-01 Completed [facility] 00:00:00 Tdap Tetanus, 2012-08-01 Completed [facility] th diphtheria, 00:00:00 acellular pertussis Vaccine Vital Signs Vital Name Observation Time Observation Value Comments Source Systolic blood 2022-01-06 16:40:00 128 mm[Hg] [facility] Diastolic blood 2022-01-06 16:40:00 63 mm[Hg] [facility] pressure Heart rate 2022-01-06 16:40:00 70 /min [facility] Body temperature 2022-01-06 16:40:00 36.28 Melody [facility] Body height 2022-01-06 16:40:00 162.6 cm [facility] Body weight 2022-01-06 16:40:00 75.978 kg [facility] BMI 2022-01-06 16:40:00 28.75 kg/m2 [facility] Systolic blood 2022-04-23 12:30:00 169 mm[Hg] [facility] pressure Diastolic blood 2022-04-23 12:30:00 51 mm[Hg] Joei s [facility] pressure Heart rate 2022-04-23 12:30:00 58 /min [facility] Body temperature 2022-04-23 12:30:00 36.61 Melody [facility] Respiratory rate 2022-04-23 12:30:00 19 /min [facility] Body height 2022-04-23 12:30:00 162.6 cm [facility] Body weight 2022-04-23 12:30:00 74.027 kg [facility] BMI 2022-04-23 12:30:00 28.01 kg/m2 [facility] Oxygen saturation in 2022-02-03 15:32:00 98 /min [facility] Arterial blood by Pulse oximetry temperature site 2020-07-02 15:12:44 oral [facility] Health respiratory rate E&M 2020-07-02 15:12:44 16 /min [facility] Health pulse rate 2020-07-02 15:12:44 60 /min [facility] blood pressure, 2020-07-02 15:12:44 61 mm[Hg] [facility] diastolic Health blood pressure, 2020-07-02 15:12:44 119 mm[Hg] Leg[facility] systolic Health weight E&M 2020-07-02 15:12:44 169 [lb_av] [facility] weight in kilograms 2020-07-02 15:12:44 76.82 kg L [facility] E& Health height in 2020-07-02 15:12:44 162.56 cm [facility] centimeters E&M Health oxygen saturation, 2020-07-02 15:12:44 98 % [facility] 2020-07-02 15:12:44 98.0 [degF] Leg[facility] oxygen saturation, 2018-08-14 10:54:52 94 % [facility] blood pressure, 2018-08-14 10:54:52 72 mm[Hg] Leg[facility] diastolic Health blood pressure, 2018-08-14 10:54:52 147 mm[Hg] [facility] systolic Health pulse rate 2018-08-14 10:54:52 81 /min [facility] Health temperature E&M 2018-08-14 10:54:52 98.4 [degF] [facility] Health weight E&M 2018-08-14 10:54:52 171.25 [lb_av] [facility] weight in kilograms 2018-08-14 10:54:52 77.84 kg L [facility] E& Health temperature site 2018-08-14 10:54:52 oral [facility] Health height in 2018-08-14 10:54:52 162.56 [facility] E&M Health weight E&M 2018-07-04 14:01:38 184 [lb_av] [facility] weight in kilograms 2018-07-04 14:01:38 83.64 kg L [facility] E& Health blood pressure, 2018-07-04 14:01:38 83 mm[Hg] Leg[facility] diastolic Health blood pressure, 2018-07-04 14:01:38 133 mm[Hg] [facility] systolic Health oxygen saturation, 2018-07-04 14:01:38 95 % [facility] oximetry Health pulse rate 2018-07-04 14:01:38 90 /min [facility] temperature E&M 2018-07-04 14:01:38 98.2 [degF] [facility] Health temperature site 2018-07-04 14:01:38 oral [facility] Health height in 2018-07-04 14:01:38 162.56 [facility] centimeters E&M Health blood pressure, 2017-10-28 08:14:02 72 mm[Hg] [facility] diastolic Health blood pressure, 2017-10-28 08:14:02 123 mm[Hg] Leg[facility] systolic Health oxygen saturation, 2017-10-28 08:14:02 97 % [facility] oximetry Health pulse rate 2017-10-28 08:14:02 85 /min [facility] temperature E&M 2017-10-28 08:14:02 96.9 [degF] Leg[facility] Health weight E&M 2017-10-28 08:14:02 185.13 [lb_av] [facility] in [facility] 2017-10-28 08:14:02 84.15 kg L [facility] E& Health temperature site 2017-10-28 08:14:02 tympanic [facility] Health height in 2017-10-28 08:14:02 162.56 cm [facility] centimeters E&M Health pulse rate 2017-07-30 12:28:45 80 /min [facility] Health blood pressure, 2017-07-30 12:28:45 72 mm[Hg] [facility] diastolic Health blood pressure, 2017-07-30 12:28:45 146 mm[Hg] [facility] systolic Health respiratory rate E&M 2017-07-30 12:28:45 16 /min [facility] Health oxygen saturation, 2017-07-30 12:28:45 98 % [facility]&M 2017-07-30 12:28:45 98.0 [degF] [facility] weight E&M 2017-07-30 12:28:45 184 [lb_av] [facility] weight in kilograms 2017-07-30 12:28:45 83.64 kg L [facility] E& Health temperature site 2017-07-30 12:28:45 tympanic [facility] Health height in 2017-07-30 12:28:45 162.56 cm [facility] centimeters E&M Health pulse rate 2016-12-16 13:55:25 82 /min [facility] Health blood pressure, 2016-12-16 13:55:25 77 mm[Hg] [facility] diastolic Health blood pressure, 2016-12-16 13:55:25 155 mm[Hg] [facility] systolic Health oxygen saturation, 2016-12-16 13:55:25 96 % [facility] E&M 2016-12-16 13:55:25 99.6 [degF] [facility] Health weight E&M 2016-12-16 13:55:25 185.60 [lb_av] [facility] Health weight in kilograms 2016-12-16 13:55:25 84.36 kg L [facility] E& Health temperature site 2016-12-16 13:55:25 tympanic [facility] height in 2016-12-16 13:55:25 162.56 cm [facility] centimeters E&M Health pulse rate 2016-08-14 09:50:08 76 /min [facility] Health blood pressure, 2016-08-14 09:50:08 67 mm[Hg] [facility] diastolic Health blood pressure, 2016-08-14 09:50:08 111 mm[Hg] [facility] systolic Health temperature site 2016-08-14 09:50:08 tympanic [facility] Health temperature E&M 2016-08-14 09:50:08 96.9 [degF] [facility] oxygen saturation, 2016-08-14 09:50:08 97 % [facility] oximetry Health weight E&M 2016-08-14 09:50:08 179.25 [lb_av] [facility] weight in kilograms 2016-08-14 09:50:08 81.48 kg L [facility] E& Health height in 2016-08-14 09:50:08 162.56 cm [facility] centimeters [facility] weight E&M 2016-06-16 08:28:26 178.50 [lb_av] [facility] weight in kilograms 2016-06-16 08:28:26 81.14 kg L [facility] oxygen saturation, 2016-06-16 08:28:26 98 % [facility] oximetry Health pulse rate 2016-06-16 08:28:26 73 /[facility] blood pressure, 2016-06-16 08:28:26 69 mm[Hg] [facility] diastolic Health blood pressure, 2016-06-16 08:28:26 113 mm[Hg] [facility] systolic Health temperature E&M 2016-06-16 08:28:26 96.9 [degF] [facility] 2016-06-16 08:28:26 162.56 cm [facility] centimeters [facility] temperature site 2016-06-16 08:28:26 tympanic [facility] Procedures Procedure Date / Time Performed Performing Clinician Sour e MICROALBUMIN / CREATININE 2022-04-23 12:28:00 Polly Herbert [facility] URINE RATIO HEMOGLOBIN A1C 2022-04-23 12:21:00 Polly Herbert [facility] COMPREHENSIVE METABOLIC 2022-04-23 12:21:00 Polly Herbert [facility] PANEL CBC (WITHOUT DIFFERENTIAL) 2022-04-23 12:21:00 Polly Herbert [facility] CT ABDOMEN AND PELVIS 2022-04-15 14:21:00 Sweetie Grimes [facility] CONTRAST CT CHEST W CONTRAST 2022-04-15 14:21:00 Yodit Gonzalez [facility] HPV HIGH-RISK 2022-04-09 14:21:00 Yodit Gonzalez [facility] ENDOMETRIAL BIOPSY SUCTION 2022-04-09 14:13:31 Blayne Robbins [facility] TYPE TISSUE EXAM 2022-04-09 14:04:00 Yodit Gonzalez [facility] PAP TEST CYTOLOGY 2022-04-09 14:04:00 Yodit Gonzalez [facility] CREATININE 2022-03-18 14:43:00 Sweetie Grimes [facility] CA 125 2022-03-16 10:51:00 Thalia Sutton [facility] CA 19-9 2022-03-16 10:51:00 Thalia Sutton [facility] h CEA 2022-03-16 10:51:00 Thalia Sutton [facility] TRANSTHORACIC ECHO (TTE) 2022-02-10 09:55:00 Joie [facility] COMPLETE [id number] LEAD EKG 2022-02-03 15:41:10 Natali Siddiqui [facility] DIABETIC FOOT EXAM 2021-11-27 09:28:06 Joie [facility] GLUCOSE POC 2021-11-27 09:24:00 Salter [facility] GLUCOSE POC 2021-11-27 08:43[facility] 2021-11-27 [facility]:00[facility] URINE [facility]IPSTICK, WITHOUT 2021-11-27 00:00:00 Joie [facility] MICRO Plan of Care Planned Activity Planned Date Details Comments Source Future Scheduled Test 2027-04-09 Screening for malignant [facility] 00:00:00 neoplasm of cervix (procedure) [code = 978269044] Future Scheduled Test 2027-04-09 Screening for malignant [facility] 00:00:00 neoplasm of cervix (procedure) [code = 312355851] Future Scheduled Test 2023-04-23 Hemoglobin A1c [facility] 00:00:00 measurement (procedure) [code = 52254438] Future Scheduled Test 2023-04-23 Urine screening for [facility] 00:00:00 protein (procedure) [code = 588825409] Future Scheduled Test 2022-11-27 DM Foot Exam (Yearly) [facility] 00:00:00 [code = DM Foot Exam (Yearly)] Future Scheduled Test 2021-06-23 DM Retinal Exam [facility] 00:00:00 (Yearly) [code = DM Retinal Exam (Yearly)] Future Scheduled Test 2019 Screening for malignant [facility] 00:00:00 neoplasm of colon (procedure) [code = 544731776] Future Scheduled Test 2016-12-03 CORONARY ARTERY DISEASE [facility] 00:00:00 AGE 18 AND UP [code = CORONARY ARTERY DISEASE AGE 18 AND UP] Future Scheduled Test 2015-05-08 Breast Cancer Scrn [facility] 00:00:00 (Yearly) [code = Breast Cancer Scrn (Yearly)] Future Scheduled Test 2013-08-31 Imm Pneumococcal 0-64 [facility] 00:00:00 (2 - PCV) [code = Imm Pneumococcal 0-64 (2 - PCV)] Future Scheduled Test 1970-04-04 COVID-19 Vaccine (#1) [facility] 00:00:00 [code = COVID-19 Vaccine (#1)] Future Scheduled Test 1969 Fluoride Varnish [code [facility] 00:00:00 = Fluoride Varnish] Encounters Start End Encounter Admission Attending Care Care Encounter Source Date/Time Date/Time Type Type Clinicians Facility Department ID 2022-02-18 Outpatient RYAN, [facility] [id number] [place] 03:25:44 [facility] 2022-02-17 Outpatient [facility] [id number] [place] 09:29:23 [facility] 2022-01-06 Outpatient HEAVENLY, [facility] [id number] [place] 11:29:35 NGOCNU [facility] 2021-12-16 Outpatient RYAN, [facility] [id number] [place] 09:44:42 [facility] 2021-06-14 Outpatient lc.maryasi [facility] [id number] [place] 15:39:19 [facility]ulam [id number] 2021-[facility]-11 Outpatient lc.case [facility] [id number] [place] 21:00:49 [id number] [facility] 2021-06-11 Outpatient diandra [facility] [id number] [place] 19:26:01 th [id number] [facility] 2022-07-12 2022-07-12 Outpatient [facility] [id number] [place] 00:00:00 00:00:00 [facility] 2022-06-28 2022-06-28 Outpatient SHAMIM, [facility] [id number] [place] 00:00:00 00:00:00 AFROZ [facility] 2022-06-21 2022-06-21 Outpatient [facility] [id number] [place] 00:00:00 00:00:00 Health 2022-05-31 2022-05-31 Outpatient [facility] [id number] [place] 00:00:00 00:00:00 [facility] 2022-05-10 2022-05-10 Outpatient [facility] [id number] [place] 00:00:00 00:00:00 [facility] 2022-05-07 2022-05-07 Outpatient [facility] [id number] [place] 00:00:00 00:00:00 [facility] 2022-05-07 2022-05-07 Outpatient [facility] [id number] [place] 00:00:00 00:00:00 [facility] 2022-05-06 2022-05-06 Outpatient SHAY, [facility] [id number] [place] 00:00:00 00:00:00 [facility] 2022-04-30 2022-04-30 Outpatient LORETTA, [facility] [id number] [place] 00:00:00 00:00:00 LAVERNE Armijo 2022-04-29 2022-04-29 [facility] [id number] [place] 00:00:00 00:00:00 [facility] 2022-04-29 2022-04-29 Outpatient LESLEY, [facility] [id number] [place] 00:00:00 00:00:00 THALIA [facility] 2022-04-26 2022-04-26 [facility] [id number] [place] 00:00:00 00:00:00 [facility] 2022-04-23 2022-04-23 [facility] [id number] [place] 12:30:22 13:58:38 MARY regalado 2022-04-23 2022-04-23 Office Mary Blevins [facility] [id number] [place] 12:00:00 13:58:38 Visit Thomas Felix [facility] 2022-04-23 2022-04-23 Outpatient [facility] [id number] [place] 12:19:18 12:22:01 [facility] 2022-04-23 2022-04-23 [facility] [id number] [place] 10:10:39 12:17:06 [facility] 2022-04-23 2022-04-23 Office Cammy Dial [facility] [id number] [place] 09:20:00 12:17:06 Visit Shay, [facility] Polly Herbert 2022-04-23 2022-04-23 [facility] [id number] [place] 00:00:00 00:00:00 [facility] 2022-04-23 2022-04-23 [facility] [id number] [place] 00:00:00 00:00:00 [facility] 2022-04-23 2022-04-23 Outpatient [facility] [id number] [place] 00:00:00 00:00:00 [facility] 2022-04-23 2022-04-23 [facility] [id number] [place] 00:00:00 00:00:00 Only Polly Isabella [facility] 2022-04-23 2022-04-23 Nurse [facility] [id number] [place] 00:00:00 00:00:00 Polly Mason [facility] 2022-04-23 2022-04-23 [facility] [id number] [place] 00:00:00 00:00:00 Only [facility] 2022-04-15 2022-04-15 Ancillary [facility] [id number] [place] 13:20:00 14:24:27 Procedure [facility] 2022-04-15 2022-04-15 Outpatient [facility] [id number] [place] 13:10:09 14:24:27 [facility] 2022-04-14 2022-04-14 Refill Danielle Wilson [facility] [id number] [place] 00:00:00 00:00:00 [facility] 2022-04-14 2022-04-14 Refill Cornelio, [facility] [id number] [place] 00:00:00 00:00:00 [facility] 2022-04-13 2022-04-13 Nurse Joshua, [facility] [id number] [place] 00:00:00 00:00:00 Triage [facility] 2022-04-13 2022-04-13 Caroline Roberson, [facility] [id number] [place] 00:00:00 00:00:00 Only Clarissa Fuller [facility] 2022-04-13 2022-04-13 Refill Cornelio, [facility] [id number] [place] 00:00:00 00:00:00 [facility] 2022-04-13 2022-04-13 Refill Joie, [facility] [id number] [place] 00:00:00 00:00:00 Deysi Fabian [facility] 2022-04-13 2022-04-13 Refill Dov, [facility] [id number] [place] 00:00:00 00:00:00 Misba S [facility] 2022-04-13 2022-04-13 Refill Faustinella [facility] [id number] [place] 00:00:00 00:00:00 , Shade [facility] 2022-04-13 2022-04-13 Refill Daily, [facility] [id number] [place] 00:00:00 00:00:00 Radha Mason [facility] 2022-04-13 2022-04-13 Refill Lesley [facility] [id number] [place] 00:00:00 00:00:00 Thalia Mason [facility] 2022-04-12 2022-04-12 Refill Cornelio, [facility] [id number] [place] 00:00:00 00:00:00 [facility] 2022-04-09 2022-04-09 Outpatient [facility] [id number] [place] 11:53:38 14:28:10 KARIMEMEERA [facility] 2022-04-09 2022-04-09 Office Mary Blevins [facility] [id number] [place] 11:30:00 14:28:10 Visit Yodit Gonzalez [facility] 2022-04-09 2022-04-09 Outpatient [facility] [id number] [place] 00:00:00 00:00:00 MARY Silt 2022-04-09 2022-04-09 Orders Lisa, [facility] [id number] [place] 00:00:00 00:00:00 Only Yodit dixon 2022-03-18 2022-03-18 Outpatient [facility] [id number] [place] 14:40:35 14:44:03 [facility] 2022-03-18 2022-03-18 Office Cornelio, [facility] [id number] [place] 13:30:00 14:28:59 Visit [facility] 2022-03-18 2022-03-18 [facility] [id number] [place] 13:21:35 14:28:59 [facility] 2022-03-18 2022-03-18 [facility] [id number] [place] 00:00:00 00:00:00 [facility] 2022-03-17 2022-03-17 Nurse Joshua, [facility] [id number] [place] 00:00:00 00:00:00 [facility] 2022-03-16 2022-03-16 Outpatient LESLEY, [facility] [id number] [place] 10:43:39 10:51:12 [facility] 2022-03-16 2022-03-16 Outpatient LESLEY, [facility] [id number] [place] 00:00:00 00:00:00 [facility] 2022-03-16 2022-03-16 Outpatient LESLEY, [facility] [id number] [place] 00:00:00 00:00:00 [facility] 2022-03-15 2022-03-15 Refill Salter, [facility] [id number] [place] 00:00:00 00:00:00 Deysi Fabian Silt 2022-03-15 2022-03-15 Refill Dov, [facility] [id number] [place] 00:00:00 00:00:00 [facility] 2022-03-15 2022-03-15 Refill Lesley, [facility] [id number] [place] 00:00:00 00:00:00 Thalia [facility] 2022-03-08 2022-03-08 Orders Lesley, [facility] [id number] [place] 00:00:00 00:00:00 Only Thalia Mason [facility] 2022-03-04 2022-03-04 Outpatient LESLEY, [facility] [id number] [place] 10:31:12 11:47:45 THALIA [facility] 2022-03-04 2022-03-04 Office Lesley, [facility] [id number] [place] 10:20:00 11:47:45 Visit Thalia Mason [facility] 2022-02-16 2022-02-16 Nurse LayPricilla [facility] [id number] [place] 00:00:00 00:00:00 Triage [facility] 2022-02-16 2022-02-16 Refill Dov, [facility] [id number] [place] 00:00:00 00:00:00 Jamari [facility] 2022-02-16 2022-02-16 Refill Faustinella [facility] [id number] [place] 00:00:00 00:00:00 , Stephaniekalee [facility] 2022-02-10 2022-02-10 Outpatient SALTER, [facility] [id number] [place] 09:13:18 23:59:00 [facility] 2022-02-10 2022-02-10 [facility], [facility] [id number] [place] 09:00:00 23:59:00 [facility] 2022-02-10 2022-02-10 Outpatient SALTER, [facility] [id number] [place] 00:00:00 00:00:00 [facility] 2022-02-03 2022-02-03 Emergency [facility] [id number] [place] 15:31:00 18:28:04 [facility] 2022-02-03 2022-02-03 Emergency [facility] [id number] [place] 15:31:00 18:28:04 [facility] 2022-02-03 2022-02-03 Emergency [facility] [id number] [place] 00:00:00 00:00:00 [facility] 2022-01-21 2022-01-21 Telephone Arin Ramirez [facility] 1.2. [id number] [place] 00:00:00 00:00:00 Arin Ramirez [facility] [id number] Health [place] 1 [id number] 2022-01-21 2022-01-21 Telephone Arin Ramirez [facility] 1.2. [id number] [place] 00:00:00 00:00:00 Arin Ramirez [facility] [id number] Health [place] 1 [id number] 2022-01-19 2022-01-19 Office Radha Magaña [facility] [id number] [place] 13:40:00 14:24:36 Visit Thalia Sutton [facility] 2022-01-19 2022-01-19 [facility] [id number] [place] 13:26:42 14:24:36 [facility] 2022-01-19 2022-01-19 [facility] [id number] [place] 00:00:00 00:00:00 Only Thalia Mason [facility] 2022-01-18 2022-01-18 Telephone JEEVAN Romero [id number] [place] 00:00:00 00:00:00 Teodoro DONOHUE [id number] Health OD [id number] 2022-01-08 2022-01-08 [facility] [id number] [place] 00:00:00 00:00:00 [facility] 2022-01-06 2022-01-06 Office JEEVAN Romero [id number] [place] 11:00:00 12:19:59 Visit Teodoro DONOHUE [id number] Health OD [id number] 2021-12-15 2021-12-15 Emergency E ALCANTER, BL BL [id number] BL 08:06:00 15:30:00 JUVENTINO 2021-12-10 2021-12-10 [facility] [id number] [place] 00:00:00 00:00:00 [facility] 2021-12-092021-12-09 Outpatient [facility] [id number] [place] 00:00:00 00:00:00 [facility] 2021-12-09 2021-12-09 Outpatient SALTER, [facility] [id number] [place] 00:00:00 00:00:00 [facility] 2021-12-08 2021-12-08 Outpatient [facility] [id number] [place] 00:00:00 00:00:00 [facility] 2021-12-04 2021-12-04 [facility] [id number] [place] 23:59:00 23:59:00 [facility] 2021-12-04 2021-12-04 Outpatient SALTER, [facility] [id number] [place] 00:00:00 23:59:00 [facility] 2021-12-04 2021-12-04 Outpatient SALTER, [facility] [id number] [place] 00:00:00 00:00:00 [facility] 2021-12-04 2021-12-04 Outpatient SALTER, [facility] [id number] [place] 00:00:00 00:00:00 [facility] 2021-12-02 2021-12-02 [facility] [id number] [place] 00:00:00 00:00:00 [facility] 2021-11-30 2021-11-30 [facility] [id number] [place] 00:00:00 00:00:00 [facility] 2021-11-27 2021-11-27 [facility] [id number] [place] 08:33:22 09:47:21 [facility] 2021-11-27 2021-11-27 [facility] [id number] [place] 08:20:00 09:47:21 Visit [facility] 2021-11-27 2021-11-27 [facility] [id number] [place] 00:00:00 00:00:00 Only [facility] 2021-11-13 2021-11-13 Emergency E SAMIR, MHBL MHBL [id number] MHBL 10:19:00 12:21:00 [facility] 2021-06-23 2021-06-23 Orders Joie, [facility] [id number] [place] 00:00:00 00:00:00 Only [facility] 2020-07-02 2020-07-02 Office ROMULO Juan Encoun ter/ Legacy 00:00:00 00:00:00 Visit Sammie [id number] Com samantha [id number] [facility] 2020-07-02 2020-07-02 Office Sammie Juan Encounter/ Legacy 00:00:00 00:00:00 Visit Alexandra Nagel [id number] Communi [id number] [facility] 2020-06-23 2020-06-23 Office ROMULO Mcwilliams Encounter / Legacy 00:00:00 00:00:00 Visit Juany [id number] Co mmuni [id number] [facility] 2020-06-23 2020-06-23 Office Juany Mcwilliams [facility] Encounter/ Legacy 00:00:00 00:00:00 Visit Kiarra Silva [id number] Communi [id number] [facility] 2020-04-25 2020-04-25 Emergency E LANDON, [facility] [id number] [facility] 14:34:00 16:16:00 ANDREA 2019-09-26 2019-09-26 Emergency E ADAM, [facility] [id number] [facility] 16:11:00 21:45:00 MALIK 2019-05-24 2019-05-[address] [facility] MED [id number] [facility] 04:42:00 04:42:00 2018-11-15 2018-11-15 Office Status, Fax ROMULO DOMINGUEZ Encoun ter/ Legacy 00:00:00 00:00:00 Visit [id number] Com samantha [id number] [facility] 2018-11-10 2018-11-10 Office ROMULO Maldonado Encount er/ Legacy 00:00:00 00:00:00 Visit Clarissa [id number] Com samantha 409716 [facility] 2018-11-10 2018-11-10 Office Clarissa Maldonado [facility] Encounter/ Legacy 00:00:00 00:00:00 Visit Re Owen [id number] [facility] [id number] Tiffany Gurrola [facility] 2018-08-15 2018-08-15 Office Clarissa Maldonado [facility] Encounter/ Legacy 00:00:00 00:00:00 Visit Caren Beck [id number] Communi [id number] [facility] 2018-08-14 2018-08-14 Office AdROMULO Encounter/ Legacy 00:00:00 00:00:00 Visit Hoa [id number] Com samantha [id number] [facility] 2018-08-14 2018-08-14 Office AdROMULO Encounter/ Legacy 00:00:00 00:00:00 Visit Hoa [id number] Com samantha 987051 [facility] 2018-08-14 2018-08-14 Office AdROMULO sue Encounter/ Legacy 00:00:00 00:00:00 Visit Hoa [id number] Com samantha [id number] [facility] 2018-08-14 2018-08-14 Office Hoa Duong ANGELICA Enco unter/ Legacy 00:00:00 00:00:00 Visit Ragini Toro [id number] Communi 426681 [facility] 2018-07-11 2018-07-11 Office [facility]/ Legacy 00:00:00 00:00:00 Visit Caren Beck [id number] [facility]att [facility],, [place] 466317 [facility] 2018-07-06 2018-07-06 Office ANGELICA Maldonado ANGELICA Encount er/ Legacy 00:00:00 00:00:00 Visit Clarissa [id number] Com samantha [id number] [facility] 2018-07-04 2018-07-04 Office [facility] Encount er/ Legacy 00:00:00 00:00:00 Visit Clarissa [id number] Com samantha [id number] [facility] 2018-07-04 2018-07-04 Office ANGELICA Maldonado ANGELICA Encount er/ Legacy 00:00:00 00:00:00 Visit Clarissa [id number] Com samantha [id number] [facility] 2018-07-04 2018-07-04 Office ANGELICA Maldonado ANGELICA Encount er/ Legacy 00:00:00 00:00:00 Visit Clarissa [id number] Com samantha 782792 [facility] 2018-07-04 2018-07-04 [facility] 00:00:00 00:00:00 Visit Radha Tom [id number] [facility] Casandra Kwan [id number] [facility] 2018-06-05 2018-06-05 Office [facility] En[facility]/ Legacy 00:00:00 00:00:00 Visit Caren Beck [id number] [facility] 116703 [facility] 2018-05-31 2018-05-31 Office [facility] En[facility]/ Legacy 00:00:00 00:00:00 Visit Caren Beck [id number] Commun [id number] [facility] Health 2018-05-02 2018-05-02 Office Jasonnathaniel [facility] Encount er/ Legacy 00:00:00 00:00:00 Visit Clarissa [id number] Com samantha 315794 [facility] 2018-05-02 2018-05-02 Office Jasonnathaniel [facility] Encount er/ Legacy 00:00:00 00:00:00 Visit Clarissa [id number] Com samantha [id number] [facility] 2018-03-27 2018-03-27 Office [facility]count er/ Legacy 00:00:00 00:00:00 Visit Clarissa [id number] Com samantha [id number] [facility] 2018-03-27 2018-03-27 Office Shanalara [facility] Encount er/ Legacy 00:00:00 00:00:00 Visit Clarissa [id number] Com samantha [id number] [facility] 2018-03-27 2018-03-27 [facility] Encount er/ Legacy 00:00:00 00:00:00 Visit Clarissa [id number] Com samantha 385597 [facility] 2018-03-27 2018-03-27 Office [facility] Encount er/ Legacy 00:00:00 00:00:00 Visit Clarissa [id number] Com samantha 312351 [facility] 2018-01-25 2018-01-25 Office [facility]ICA [facility] Encount er/ Legacy 00:00:00 00:00:00 Visit Clarissa [id number] Com samantha [id number] Health 2018-01-25 2018-01-25 [facility] 00:00:00 00:00:00 Visit Clarissa [id number] Com samantha [id number] ty Health 2018-01-25 2018-01-25 [facility] Encount er/ Legacy 00:00:00 00:00:00 Visit Clarissa [id number] Com samantha [id number] [facility] 2018-01-25 2018-01-25 [facility] Encount er/ Legacy 00:00:00 00:00:00 Visit Clarissa [id number] Com samantha [id number] ty Health 2017-12-12 2017-12-12 Office Jasonnathaniel [facility] Encount er/ Legacy 00:00:00 00:00:00 Visit Clarissa [id number] Com samantha [id number] ty Health 2017-12-10 2017-12-10 [facility] Encount er/ Legacy 00:00:00 00:00:00 Visit Clarissa [id number] Com samantha [id number] ty Health 2017-11-01 2017-11-01 Office Negro [facility] Encount er/ Legacy 00:00:00 00:00:00 Visit Radha [id number] Com samantha [id number] Health 2017-10-28 2017-10-28 Office Shanalara [facility] Encount er/ Legacy 00:00:00 00:00:00 Visit Clarissa [phone] Com samantha [id number] ty Health 2017-10-28 2017-10-28 [facility] [facility] Encount er/ Legacy 00:00:00 00:00:00 Visit Clarissa [id number] Com samantha [id number] ty Health 2017-10-28 2017-10-28 [facility] Legacy 00:00:00 00:00:00 Visit Napoleon Ramirez [id number] Communi [id number] ty Health 2017-10-28 2017-10-28 Office [facility] Encount er/ Legacy 00:00:00 00:00:00 Visit Clarissa [id number] Com samantha [id number] Health 2017-10-28 2017-10-28 [facility] Encount er/ Legacy 00:00:00 00:00:00 Visit Clarissa [id number] Com samantha [id number] Health 2017-10-28 2017-10-28 Office [facility] Encounter/ Legacy 00:00:00 00:00:00 Visit Ailyn Zavala [id number] Radha Musa [id number] Napoleon Ramirez FaQuazia 2017-08-11 2017-08-11 [facility] Encount er/ Legacy 00:00:00 00:00:00 Visit Clarissa [id number] Com samantha [id number] Health 2017-08-11 2017-08-11 [facility] Encount er/ Legacy 00:00:00 00:00:00 Visit Clarissa [id number] Com samantha [id number] Health 2017-08-09 2017-08-09 Office [facility] Encounter/ Legacy 00:00:00 00:00:00 Visit Krystina Morrow [id number] Reece Cardoza [id number] [facility] 2017-08-09 2017-08-09 [facility] Encount er/ Legacy 00:00:00 00:00:00 Visit Clarissa [id number] Com samantha [id number] Health 2017-08-06 2017-08-06 [facility] Encount er/ Legacy 00:00:00 00:00:00 Visit Clarissa [id number] Com samantha [id number] Health 2017-08-02 2017-08-02 [facility] Encount er/ Legacy 00:00:00 00:00:00 Visit Clarissa [id number] Com samantha [id number] Health 2017-08-02 [facility] Encount er/ Legacy 00:00:00 00:00:00 Visit Clarissa [id number] Com samantha [id number] Health 2017-08-02 2017-08-02 Office [facility] Encounter/ Legacy 00:00:00 00:00:00 Visit Kiarra Aguirre [id number] [address] [place] [address] 130243 Health 2017-07-30 2017-07-30 Office [facility] Encount er/ Legacy 00:00:00 00:00:00 Visit Clarissa [id number] Com samantha [id number] Health 2017-07-30 2017-07-30 Office [facility] Encount er/ Legacy 00:00:00 00:00:00 Visit Clarissa [id number] Com samantha [id number] Health 2017-07-30 2017-07-30 Office [facility] Encount er/ Legacy 00:00:00 00:00:00 Visit Clarissa [id number] Com samantha [id number] Health 2017-07-30 2017-07-30 Office [facility] Encount er/ Legacy 00:00:00 00:00:00 Visit Clarissa [id number] Com samantha [id number] Health 2017-07-30 2017-07-30 Office [facility] Encounter/ Legacy 00:00:00 00:00:00 Visit Radha Tom [id number] [facility] [id number] [facility] 2017-06-29 2017-06-29 Office [facility] Encount er/ Legacy 00:00:00 00:00:00 Visit Clarissa [id number] Com samantha [id number] ty Health 2017-06-29 2017-06-29 Office [facility] Encount er/ Legacy 00:00:00 00:00:00 Visit Clarissa [id number] Com samantha [id number] Health 2017-06-29 2017-06-29 Office [facility] Encount er/ Legacy 00:00:00 00:00:00 Visit Clarissa [id number] Com samantha [id number] Health 2017-06-29 2017-06-29 [facility] Encount er/ Legacy 00:00:00 00:00:00 Visit Clarissa [id number] Com samantha [id number] Health 2017-06-26 2017-06-26 [facility] Encount er/ Legacy 00:00:00 00:00:00 Visit Clarissa [id number] Com samantha [id number] Health 2017-06-26 2017-06-26 Office [facility] Encount er/ Legacy 00:00:00 00:00:00 Visit Clarissa [id number] Com samantha [id number] Health 2017-06-08 2017-06-08 Office [facility] Encounter/ Legacy 00:00:00 00:00:00 Visit Kiarra Aguirre [id number] Lay Musa [id number] Health 2017-06-03 2017-06-03 [facility] Encount er/ Legacy 00:00:00 00:00:00 Visit Clarissa [id number] Com samantha [id number] ty Health 2017-06-03 2017-06-03 [facility] Encount er/ Legacy 00:00:00 00:00:00 Visit Clarissa [id number] Com samantha 875454 ty Health 2017-05-06 2017-05-06 [facility] Encount er/ Legacy 00:00:00 00:00:00 Visit Clarissa [id number] Com samantha 853693 ty Health 2017-05-04 2017-05-04 [facility] Encount er/ Legacy 00:00:00 00:00:00 Visit Clarissa [id number] Com samantha [id number] ty Health 2017-05-01 2017-05-01 [facility] Encount er/ Legacy 00:00:00 00:00:00 Visit Clarissa [id number] Com samantha 735220 ty Health 2017-04-06 2017-04-06 Office [facility] Encount er/ Legacy 00:00:00 00:00:00 Visit Clarissa [id number] Com samantha [id number] Health 2017-04-04 2017-04-04 Office [facility] Encount er/ Legacy 00:00:00 00:00:00 Visit Clarissa [id number] Com samantha [id number] Health 2017-04-01 2017-04-01 Office [facility] Encount er/ Legacy 00:00:00 00:00:00 Visit Clarissa [id number] Com samantha [id number] Health 2017-03-06 2017-03-06 Office [facility] Encount er/ Legacy 00:00:00 00:00:00 Visit Clarissa [id number] Com samantha [id number] Health 2017-03-05 2017-03-05 [facility] Encount er/ Legacy 00:00:00 00:00:00 Visit Clarissa [id number] Com samantha [id number] ty Health 2017-02-27 2017-02-27 Office [facility] Encount er/ Legacy 00:00:00 00:00:00 Visit Clarissa [id number] Com samantha [id number] Health 2017-02-23 2017-02-23 Office [facility] Encount er/ Legacy 00:00:00 00:00:00 Visit Clarissa [id number] Com samantha [id number] ty Health 2017-01-30 2017-01-30 Office [facility] Encount er/ Legacy 00:00:00 00:00:00 Visit Clarissa [id number] Com samantha [id number] ty Health 2017-01-29 2017-01-29 [facility] Encount er/ Legacy 00:00:00 00:00:00 Visit Clarissa [id number] Com samantha 074518 ty Health 2016-12-20 2016-12-20 Office [facility] Encount er/ Legacy 00:00:00 00:00:00 Visit Clarissa [id number] Com samantha 918414 ty Health 2016-12-19 2016-12-19 Office ROMULO Maldonado Encount er/ Legacy 00:00:00 00:00:00 Visit Clarissa [id number] Com samantha 905883 ty Health 2016-12-16 2016-12-16 Office ROMULO Owen Encounter/ Legacy 00:00:00 00:00:00 Visit Kate [id number] Com samantha 694001 ty Health 2016-12-16 2016-12-16 Office ROMULO Owen Encounter/ Legacy 00:00:00 00:00:00 Visit Kate [id number] Com samantha [id number] ty Health 2016-12-16 2016-12-16 Office Kate Owen ANGELICA Enco unter/ Legacy 00:00:00 00:00:00 Visit Shikha Felton [id number] Communi [id number] Health 2016-10-15 2016-10-15 Office Clarissa Maldonado Encounter/ Legacy 00:00:00 00:00:00 Visit Kiarra Aguirre [id number] [address] [place] [address] Alexandria Palma [id number] Health 2016-08-14 2016-08-14 Office ROMULO Maldonado Encount er/ Legacy 00:00:00 00:00:00 Visit Clarissa [id number] Com samantha 867271 ty Health 2016-08-14 2016-08-14 Office Clarissa Maldonado Encounter/ Legacy 00:00:00 00:00:00 Visit Aura Perry [id number] Communi [id number] Health 2016-07-27 2016-07-27 Outpatient [facility] [id number] [place] 11:29:47 11:29:47 Health 2016-07-27 2016-07-27 Outpatient [facility] [id number] Malik 09:10:43 09:10:43 Health 2016-07-27 2016-07-27 Outpatient [facility] [id number] Malik 00:00:00 00:00:00 Health 2016-06-30 2016-06-30 Office Radha Tom Encounter/ Legacy 00:00:00 00:00:00 Visit Clarissa Maldonado [id number] Sabrina Lee [id number] 0 ty Enmanuel Jordan 2016-06-30 2016-06-30 Office Kilo [facility] Encounte r/ Legacy 00:00:00 00:00:00 Visit Sabrina [id number] Co mmuni [id number] Health 2016-06-16 2016-06-16 Office Joel [facility] Encount er/ Legacy 00:00:00 00:00:00 Visit Clarissa [id number] Com samantha [id number] Health 2016-06-16 2016-06-16 Office Eron [facility] Encount er/ Legacy 00:00:00 00:00:00 Visit Clarissa [id number] Com samantha [id number] [facility] Health 2016-06-16 2016-06-16 Office Joel [facility] Encoun er/ Legacy 00:00:00 00:00:00 Visit Clarissa [id number] Com samantha [id number] [facility] Health 2016-06-16 2016-06-16 [facility] En[facility]/ Legacy 00:00:00 00:00:00 Visit Napoleon Ramirez [id number] Communi [id number] [facility] Health 2016-06-16 2016-06-16 Office Eron [facility] Encoun er/ Legacy 00:00:00 00:00:00 Visit Clarissa [id number] Com samantha [id number] Health 2016-06-16 2016-06-16 [facility] En[facility]/ Legacy 00:00:00 00:00:00 Visit Radha Tom [id number] Napoleon Coley [id number] Health 2016-05-27 2016-05-27 Outpatient [facility] [id number] Malik 12:22:18 12:22:18 Health 2016-03-09 2016-03-09 Outpatient [facility] [id number] Malik 10:29:48 10:29:48 Health Results Test Description Test Time Test Comments Results Result Comments Source Transthoracic echo (TTE) complete 2022-02-10 12:27:55 Test Item Value Reference Range Interpretation Comme nts LVOT SV (test code = 88.9 cm3 3299618141) LVOT SI (test code = 46.83 ml/m2 78835446) LV EDV 2D (test code = 104.45 mL 0495591) LV ESV 2D (test code = 33.89 mL 0512971) LV ESV index 2D (test 18.22 ml/m2 code = 6204969543) LV EDV index 2D (test 56.14 ml/m2 code = 4609775236) IVSd (test code = 1.12 cm 0.6-0.9 1982495711) LVPWd (test code = 1.09 cm 5875166167) LVIDd (test code = 4.7 cm 3.8-5.2 5560765728) LVIDd index (test code 25.5 ml/m2 2.3-3.1 = 71391712) LVIDs (test code = 3.0 cm 2.2-3.5 0471044014) LVIDs index (test code 15.9 ml/m2 1.3-2.3 = 72238291) FS % (test code = 36.2 % See_Comment [Automate d message] 0010713685) The system [employer] generated this result transmitted ref erence range: >18%. Th e reference range was not used to int erpret this result as normal/abnormal . RWT (test code = 0.5 See_Comment [Automated message] 4769769893) The system [employer] generated this result transmitted ref erence range: <=0.42. The reference range was not used to int erpret this result as normal/abnormal . LVOT diam (test code = 2.2 cm 4469021913) LVOT area (test code = 3.80 cm2 8204753622) LV mass (linear method) 192.2 g 67-162 (test code = 4000940534) LVMI (2D) (test code = 103.3 g/m2 44-88 1849202864) MV E zev (test code = 83.06 cm/s 3790741635) MV A zev (test code = 84.36 cm/s 3346964030) MV E/A ratio (test code 1.0 = 0033495095) E/e' average (test code 9.0 <14 = 7432410878) LVOT peak zev (test 1.25 m/s code = 4154444461) LVOT mean grad (test 2.5 mmHg code = 5285976689) LVOT pk grad rest (test 6 mmHg code = 1478142235) LA AP dimension (ES) 3.2 cm <3.8 (test code = 0798562772) LA/Ao ratio (test code 0.447834216267758 = 0592366765) LVOT peak grad (test 6.2 mmHg code = 4199635669) LVOT VTI (test code = 23.4 cm 1957519193) LVOT SV index (test 46.8 mL/m2 code = 6336078301) LV RWT 2D (test code = 46.128538514925573 7952539937) LV mass size 1 (test 192.2 cm code = 5879461944) LVPWd (test code = 10.9 cm 0.6-0.9 6676668997) IVSd 2D (test code = 11.236429031374189 cm 6925610) Sinuses of Valsalva 3.1 cm 3.6-3.6 (test code = 7784148309) Sinus of Valsalva (test 31.14 cm code = 8598596213) RVOT VTI (test code = 20.5 cm 0027151217) TAPSE (test code = 2.9 cm See_Comment [Automat ed message] 9857360635) The system [employer] generated this result transmitted ref erence range: >=1.7. T he reference range was not used to int erpret this result as normal/abnormal . IRIS (2D biplane) (test 15.529 mL/m2 9-33 code = 2284457542) PV mean grad (test code 2.1 mmHg = 1685914846) PV peak zev (test code 95.92 cm/s = 7828880424) PV peak grad (test code 3.7 mmHg = 7934676401) PV VTI (test code = 21.931950681269046 cm 4689853) RVOT mn grad (test code 1.848899084904717 mmHg = 3413482659) RVOT pk grad (test code 3.2 mmHg = 4791255034) PV mean zev (test code 0.07 cm/s = 5072279328) RVOT pk zev (test code 0.90 mm/s = 5674360849) LV1MQMFEPH (test code = 15.5 QK8ECPBGCO 0919939015) AV EROA cont eq (test 2.96 cm2 code = 7739230234) AV peak zev (test code 1.47 m/s = 5361980772) AV peak grad (test code 8.6 mmHg = 8710874438) AV mean grad (test code 4.1 mmHg = 4632152973) AV mean zev (test code 0.9 m/sec = 9828233237) AV VTI (test code = 29.4 cm 0755134458) RAUL VTI index (test 1.59 cm2/m2 code = 8464462461) RAUL VTI (test code = 2.96 cm2 2726564197) RAUL peak zev (test code 3.16 cm2 = 3214609109) AV Doppler zev index pk 0.85 zev (test code = 5618442895) AV Doppler zev index 0.80 VTI (test code = 6401816241) AV zev ratio (test code 0.85 AVRATIO = 3900488045) A2CEF (test code = 66.7 % 0365822888) LV ESV index A2C (test 15.76 ml/m2 code = 5325130374) LV ESV A2C (test code = 29.32 mL 7907956800) LV EDV index A2C (test 47.33 ml/m2 code = 1862846870) Radiology Study observation (narrative) (test code = 73126-2) DANIELA (test code = DANIELA) Left Ventricle: Left ventricle size is normal. Findings consistent with mild concentric hypertrophy. Normal systolic function. Estimated ejection fraction of 60 - 64%. Normal diastolic function. No regional wall motion abnormalities present. Right Ventricle: Right ventricle size is normal. Normal systolic function. TAPSE is 2.9 cm. Both atria are normal in size. No significant hemodynamic valvular abnormalities. No pericardial effusion Unable to estimate RVSP due to insufficient TR jet. Left VentricleLeft ventricle size is normal. Findings consistent with mild concentric hypertrophy. Normal systolic function. Estimated ejection fraction of 60 - 64%. Normal diastolic function. No regional wall motion abnormalities present.Right VentricleRight ventricle size is normal. Normal systolic function. TAPSE is 2.9 cm.Left AtriumLeft atrium size is normal.Right AtriumRight atrium size is normal.IVC/SVCNormal IVCMitral ValveMitral valve structure is normal. No mitral valve regurgitation. No mitral valve stenosis.Tricuspid ValveTricuspid valve structure is normal. No tricuspid valve regurgitation. No tricuspid valve stenosis.Aortic ValveThe aortic valve is trileaflet. No aortic valve regurgitation. No aortic valve stenosis.Pulmonic ValveThe pulmonic valve is not well visualized.Ascending AortaNormal sized aortic root for BSA at the sinuses of Valsalva.PericardiumNo pericardial effusion.Study DetailsImage quality was adequate. A complete 2D, color flow Doppler and spectral Doppler echocardiogram was performed. The apical, parasternal, subcostal and suprasternal views were obtained. Patient exhibited sinus rhythm. Technical difficulties due to patient's body habitus.Prior StudyPrior TTE study available for comparison. Prior study date: 09/23/2015. No significant changes noted compared to the prior study.Wall Scoring BaselineScore Index: 1.00The left ventricular wall motion is normal. 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: 1970 Requested By: NATALI SIDDIQUI Order Number: [id number] Reading MD: Lenny Farooq MeasurementsIntervals [place] Rate: 70 P: 61PR: 139 QRS: -28QRSD: 101 T: 45QT: 396 QTc: 416 Interpretive StatementsSINUS RHYTHMBORDERLINE LEFT AXIS DEVIATION [QRS AXIS < -20]VOLTAGE CRITERIA FOR LVH [MEETS CRITERIA IN ONE OF: R(aVL), S(V1), R(V5),R(V5/V6)+S(V1)]Electronically Signed On 02-04-2022 14:37:10 CD[facility] P[facility] docked [id number] 09:32:13 Test Item Value Reference Range Interpretation Comments Glucose POC (test code = 468 mg/dL 74-106 HH >40 0 mg/dL 74019796) Physician Notif ied Lab Interpretation (test Abnormal code = 01679-9) [facility] URINE DIPSTICK, WITHOUT [id number] 00:00:00 Test Item Value Reference Range Interpretation Comments Color POC (test code = Yellow See_Comment [Aut omated message] 07894) The system [employer] generated this result transmit tricia reference range : - - -. The referenc e range was not u sed to interpret th is result as normal/abnormal . Clarity POC (test code Clear See_Comment [Aut omated message] = 35422) The system [employer] generated this result transmit tricia reference range : - - -. The referenc e range was not u sed to interpret th is result as normal/abnormal . Glucose POC (test code 3+ Negative - Negative = 06348) Bilirubin POC (test Negative Negative - Negative code = 03723) Ketone POC (test code Negative Negative - Negative = 04490) Spec [place] POC (test 1.015 1.005-1.030 code = 8156) Blood POC (test code = Trace Negative - Negative 86472) pH POC (test code = 6.0 5.0-7.0 85691) Protein POC (test code Negative Negative - Negative = 27653) Urobilinogen POC (test <1.0 0.2-1.0 code = 87490) Nitrate POC (test code Negative Negative - Negative = 71259) Leukocyte POC (test Negative Negative - Negative code = 29413) [facility] RAPID [id number] 00:00:00 Test Item Value Reference Range Interpretation Comments Rapid HIV Result (test code = 85076) Negative Rapid HIV Control (test code = Pass 63041) [facility], as % of total eordnrhnus5219-21-08 14:57:00 Test Item Value Reference Range Interpretation Comments hemoglobin A1C, blood, as % of total 10.9 % 4.8-5.6 H hemoglobin (test code = 4548-4) [facility], rkwvl0899-45-45 14:57:00 Test Item Value Reference Range Interpretation Comments LDL cholesterol, serum (test TRIGHI mg/dL 0-99 code = 2089-1) [facility] gcxtomdqstfz1138-92-40 14:57:00 Test Item Value Reference Range Interpretation Comments very low density lipoproteins VLDLCH mg/dL 5-40 (test code = 1-7) [facility]HDL cholesterol, lhhfd9293-18-05 14:57:00 Test Item Value Reference Range Interpretation Comments HDL cholesterol, serum (test code = 55 mg/dL >39 5-9) [facility], serum, lwpuqcw5347-63-95 14:57:00 Test Item Value Reference Range Interpretation Comments triglyceride, serum, fasting (test 527 mg/dL 0-149 H code = 2571-8) [facility]cholesterol, nymda0159-73-23 14:57:00 Test Item Value Reference Range Interpretation Comments cholesterol, serum (test code = 261 mg/dL 100-199 H 2092-3) [facility]alanine aminotransferase (SGPT), [id number] 14:57:00 Test Item Value Reference Range Interpretation Comments alanine aminotransferase (SGPT), serum 25 1/L 0-32 (test code = 1742-6) [facility] Healthaspartate aminotransferase (SGOT), dncck7041-24-56 14:57:00 Test Item Value Reference Range Interpretation Comments aspartate aminotransferase (SGOT), 19 1/L 0-40 serum (test code = 1920-8) [facility] Healthalkaline phosphatase, [id number] 14:57:00 Test Item Value Reference Range Interpretation Comments alkaline phosphatase, serum (test code 99 1/L 39-117 = 1783-0) [facility]bilirubin, serum, [id number] 14:57:00 Test Item Value Reference Range Interpretation Comments bilirubin, serum, total (test code 0.3 mg/dL 0.0-1.2 = 1975-2) [facility] Healthalbumin/globulin ratio, ceghq6346-56-28 14:57:00 Test Item Value Reference Range Interpretation Comments albumin/globulin ratio, serum (test 1.7 1.2-2.2 code = 1759-0) [facility] Healthglobulin, [id number] 14:57:00 Test Item Value Reference Range Interpretation Comments globulin, serum (test code = 2336-6) 2.7 1.5-4.5 [facility]albumin, [id number] 14:57:00 Test Item Value Reference Range Interpretation Comments albumin, serum (test code = 1751-7) 4.5 g/dL 3.5-5.5 [facility] Healthprotein, total, [id number] 14:57:00 Test Item Value Reference Range Interpretation Comments protein, total, serum (test code = 7.2 g/dL 6.0-8.5 2885-2) [facility] Healthcalcium, [id number] 14:57:00 Test Item Value Reference Range Interpretation Comments calcium, serum (test code = 10.8 mg/dL 8.7-10.2 H 1999-) [facility]carbon dioxide, venous [id number] 14:57:00 Test Item Value Reference Range Interpretation Comments carbon dioxide, venous blood (test 24 mmol/L code = 2026-1) [facility] Healthchloride, [id number] 14:57:00 Test Item Value Reference Range Interpretation Comments chloride, serum (test code = 91 mmol/L 96-106 L 2074-0) [facility]potassium, [id number] 14:57:00 Test Item Value Reference Range Interpretation Comments potassium, serum (test code = 4.9 mmol/L 3.5-5.2 2823-3) [facility] Healthsodium, [id number] 14:57:00 Test Item Value Reference Range Interpretation Comments sodium, serum (test code = 2951-2) 131 mmol/L 134-144 L [facility]a nitrogen/creatinine ratio, peouu7036-39-56 14:57:00 Test Item Value Reference Range Interpretation Comments urea nitrogen/creatinine ratio, serum 13 9-23 (test code = 3097-3) [facility] HealtheGFR if Nudhrtlz5252-34-82 14:57:00 Test Item Value Reference Range Interpretation Comments eGFR if 90 >59 (test code = 91247-0) mL/min/((173/100).m2) [facility] HealthEstimated Glomerular Filtration Rate (calc)2018-07-04 14:57:00 Test Item Value Reference Range Interpretation Comments Estimated Glomerular 78 >59 Filtration Rate (calc) mL/min/((173/100).m2 (test code = 59698-5) ) [facility] Healthcreatinine, [id number] 14:57:00 Test Item Value Reference Range Interpretation Comments creatinine, serum (test code = 0.88 mg/dL 0.57-1.00 2160-0) [facility] Healthurea nitrogen, [id number] 14:57:00 Test Item Value Reference Range Interpretation Comments urea nitrogen, blood (test code = 11 mg/dL 6-24 3094-0) [facility] Healthblood glucose, zpzwha1317-61-13 14:57:00 Test Item Value Reference Range Interpretation Comments blood glucose, random (test code = 520 mg/dL 65-99 2339-0) [facility] Healthimmature granulocytes, percentage of total cells, blood 2018-07-04 14:57:00 Test Item Value Reference Range Interpretation Comments immature granulocytes, percentage of 0 % total cells, blood (test code = 68978-5) [facility] Healthbasophil count, [id number] 14:57:00 Test Item Value Reference Range Interpretation Comments basophil count, absolute (test 0.1 x10E3/uL 0.0-0.2 code = 55850-2) [facility] HealthEosinophil Absolute [id number] 14:57:00 Test Item Value Reference Range Interpretation Comments Eosinophil Absolute Count (test 0.3 X10E3/UL 0.0-0.4 code = 06726-5) [facility] Healthmonocyte count, blood, iuujcyimr8499-39-15 14:57:00 Test Item Value Reference Range Interpretation Comments monocyte count, blood, automated 0.6 X10E3/UL 0.1-0.9 (test code = 742-7) [facility] Healthlymphocyte count, blood, tqkhibire4433-57-97 14:57:00 Test Item Value Reference Range Interpretation Comments lymphocyte count, blood, 3.4 X10E3/UL 0.7-3.1 H automated (test code = 731-0) [facility] HealthAbsolute Lkghrmqpumr9414-27-44 14:57:00 Test Item Value Reference Range Interpretation Comments Absolute Neutrophils (test code 7.5 X10E3/UL 1.4-7.0 H = 91050-9) [facility] Healthbasophils as percent of blood gtytbyocfs9112-25-43 14:57:00 Test Item Value Reference Range Interpretation Comments basophils as percent of blood 1 % leukocytes (test code = 707-0) [facility] Healtheosinophils as percent of blood dpuwdpjwuz9005-24-63 14:57:00 Test Item Value Reference Range Interpretation Comments eosinophils as percent of blood 3 % leukocytes (test code = 713-8) [facility] Healthmonocytes as percent of blood lszoqvefol5545-67-70 14:57:00 Test Item Value Reference Range Interpretation Comments monocytes as percent of blood 5 % leukocytes (test code = 5905-5) [facility] Healthlymphocytes as percent of blood ptevknnvkm3142-84-13 14:57:00 Test Item Value Reference Range Interpretation Comments lymphocytes as percent of blood 28 % leukocytes (test code = 736-9) [facility] Healthneutrophils as percent of blood hvwfgqwuxm5315-16-26 14:57:00 Test Item Value Reference Range Interpretation Comments neutrophils as percent of blood 63 % leukocytes (test code = 770-8) [facility] Healthplatelet nzzqb5666-52-45 14:57:00 Test Item Value Reference Range Interpretation Comments platelet count (test code = 410 X10E3/UL 150-379 H 777-3) [facility] Healthred blood cell distribution xveel5713-36-86 14:57:00 Test Item Value Reference Range Interpretation Comments red blood cell distribution width 14.7 % 12.3-15.4 (test code = 788-0) [facility] corpuscular hemoglobin concentration, [id number] 14:57:00 Test Item Value Reference Range Interpretation Comments mean corpuscular hemoglobin 33.0 G/DL 31.5-35.7 concentration, RBC (test code = 786-4) [facility] corpuscular hemoglobin, [id number] 14:57:00 Test Item Value Reference Range Interpretation Comments mean corpuscular hemoglobin, RBC 29.1 pg 26.6-33.0 (test code = 785-6) [facility] corpuscular volume, [id number] 14:57:00 Test Item Value Reference Range Interpretation Comments mean corpuscular volume, RBC (test code 88 fL 79-97 = 787-2) [facility]oc[facility], [id number] 14:57:00 Test Item Value Reference Range Interpretation Comments hematocrit, blood (test code = 4544-3) 41.2 % 34.0-46.6 [facility]hemoglobin, [id number] 14:57:00 Test Item Value Reference Range Interpretation Comments hemoglobin, blood (test code = 13.6 g/dL 11.1-15.9 718-7) [facility]ythrocyte (RBC) [id number] 14:57:00 Test Item Value Reference Range Interpretation Comments erythrocyte (RBC) count (test 4.67 X10E6/UL 3.77-5.28 code = 789-8) [facility]leukocyte count, cvyol6898-11-34 14:57:00 Test Item Value Reference Range Interpretation Comments leukocyte count, blood (test 11.9 X10E3/UL 3.4-10.8 H code = 6690-2) [facility] HealthNeisseria gonorrhoeae DNA icuki9604-84-30 16:44:00 Test Item Value Reference Range Interpretation Comments Neisseria gonorrhoeae DNA probe NOT DETECTED NOT DETECTED N (test code = 24629-3) [facility]chlamydia DNA [id number] 16:44:00 Test Item Value Reference Range Interpretation Comments chlamydia DNA probe (test code = NOT DETECTED NOT DETECTED N 57214-0) [facility] Healthrapid plasma reagin antibody, [id number] 13:17:00 Test Item Value Reference Range Interpretation Comments rapid plasma reagin antibody, NON-REACTIVE NON-REACTIVE N serum (test code = 5291-0) [facility]hemoglobin A1C, blood, as % of total jxaoaniqid0413-23-48 13:17:00 Test Item Value Reference Range Interpretation Comments hemoglobin A1C, blood, as 8.7 % OF TOTAL HGB <5.7 H % of total hemoglobin (test code = 4548-4) [facility] HealthTSH (thyroid stimulating hormone) with reflex FT4 2017-07-30 13:17:00 Test Item Value Reference Range Interpretation Comments TSH (thyroid stimulating hormone) 1.30 mIU/L N with reflex FT4 (test code = 49708) [facility] HealthHepatitis C Antibody, Signal to Uad-Qqi9080-71-02 13:17:00 Test Item Value Reference Range Interpretation Comments Hepatitis C Antibody, Signal to Cut-Off 0.01 <1.00 N (test code = 228062) [facility] Healthhepatitis C antibody, [id number] 13:17:00 Test Item Value Reference Range Interpretation Comments hepatitis C antibody, serum NON-REACTIVE NON-REACTIVE N (test code = 5199-5) [facility] Healthbasophils as percent of blood hbtmgpnsmq3506-18-64 13:17:00 Test Item Value Reference Range Interpretation Comments basophils as percent of blood 0.9 % N leukocytes (test code = 707-0) [facility] Healtheosinophils as percent of blood ukvdmnzmgy7142-17-69 13:17:00 Test Item Value Reference Range Interpretation Comments eosinophils as percent of blood 3.1 % N leukocytes (test code = 714-6) [facility] Healthmonocytes as percent of blood vwdevhxega6389-12-93 13:17:00 Test Item Value Reference Range Interpretation Comments monocytes as percent of blood 5.5 % N leukocytes (test code = 5905-5) [facility]lymphocytes as percent of blood vpicpvljah5858-61-13 13:17:00 Test Item Value Reference Range Interpretation Comments lymphocytes as percent of blood 23.6 % N leukocytes (test code = 736-9) [facility] Healthneutrophils as percent of blood lruwwsaaby5341-45-49 13:17:00 Test Item Value Reference Range Interpretation Comments neutrophils as percent of blood 66.9 % N leukocytes (test code = 770-8) [facility]basophil count, dnxawlwy2440-25-87 13:17:00 Test Item Value Reference Range Interpretation Comments basophil count, absolute (test 115 cells/uL 0-200 N code = 79114-2) [facility] Eosinophil eirtn5105-04-33 13:17:00 Test Item Value Reference Range Interpretation Comments Absolute Eosinophil count (test 397 cells/mcL 15-500 N code = 09835-7) [facility] Monocyte atipu5509-24-40 13:17:00 Test Item Value Reference Range Interpretation Comments Absolute Monocyte count (test 704 cells/mcL 200-950 N code = 98095-4) [facility]lymphocytes, hgaxwiwg2243-29-59 13:17:00 Test Item Value Reference Range Interpretation Comments lymphocytes, absolute (test 3021 CELLS/UL 850-3900 N code = 00179-0) [facility] Neutrophil [id number] 13:17:00 Test Item Value Reference Range Interpretation Comments Absolute Neutrophil count 8563 cells/mcL 3220-7901 H (test code = 69804-3) [facility] pvoaki2155-04-17 13:17:00 Test Item Value Reference Range Interpretation Comments mean platelet volume (test code = 10.3 fL 7.5-12.5 N 776-5) [facility] Healthplatelet yqzqe3634-60-25 13:17:00 Test Item Value Reference Range Interpretation Comments platelet count (test code = 445 THOUSAND/UL 140-400 H 777-3) [facility]red blood cell distribution dftva6806-24-77 13:17:00 Test Item Value Reference Range Interpretation Comments red blood cell distribution width 15.5 % 11.0-15.0 H (test code = 788-0) [facility] corpuscular hemoglobin concentration, [id number] 13:17:00 Test Item Value Reference Range Interpretation Comments mean corpuscular hemoglobin 32.1 G/DL 32.0-36.0 N concentration, RBC (test code = 786-4) [facility] corpuscular hemoglobin, [id number] 13:17:00 Test Item Value Reference Range Interpretation Comments mean corpuscular hemoglobin, RBC 25.3 pg 27.0-33.0 L (test code = 785-6) [facility] corpuscular volume, [id number] 13:17:00 Test Item Value Reference Range Interpretation Comments mean corpuscular volume, RBC (test 78.7 fL 80.0-100.0 L code = 787-2) [facility]hematocrit, ctauj2552-98-85 13:17:00 Test Item Value Reference Range Interpretation Comments hematocrit, blood (test code = 4544-3) 35.8 % 35.0-45.0 N [facility] Healthhemoglobin, [id number] 13:17:00 Test Item Value Reference Range Interpretation Comments hemoglobin, blood (test code = 11.5 g/dL 11.7-15.5 L 718-7) [facility]therythrocyte (RBC) ehdgm5135-20-42 13:17:00 Test Item Value Reference Range Interpretation Comments erythrocyte (RBC) count (test 4.55 MILLION/UL 3.80-5.10 N code = 789-8) [facility]leukocyte count, [id number] 13:17:00 Test Item Value Reference Range Interpretation Comments leukocyte count, blood (test 12.8 THOUSAND/UL 3.8-10.8 H code = 6690-2) [facility]alanine aminotransferase (SGPT), gwncn2498-72-36 13:17:00 Test Item Value Reference Range Interpretation Comments alanine aminotransferase (SGPT), serum 16 1/L 6-29 N (test code = 1742-6) [facility] Healthaspartate aminotransferase (SGOT), orcij6491-51-46 13:17:00 Test Item Value Reference Range Interpretation Comments aspartate aminotransferase (SGOT), 14 1/L 10-35 N serum (test code = 1920-8) [facility] Healthalkaline phosphatase, [id number] 13:17:00 Test Item Value Reference Range Interpretation Comments alkaline phosphatase, serum (test code 72 1/L 33-115 N = 1783-0) [facility]bilirubin, serum, [id number] 13:17:00 Test Item Value Reference Range Interpretation Comments bilirubin, serum, total (test code 0.2 mg/dL 0.2-1.2 N = 1975-2) [facility]albumin/globulin ratio, udvsn6573-90-62 13:17:00 Test Item Value Reference Range Interpretation Comments albumin/globulin ratio, serum 1.4 (calc) 1.0-2.5 N (test code = 1759-0) [facility] Healthglobulins, serum, [id number] 13:17:00 Test Item Value Reference Range Interpretation Comments globulins, serum, total (test 2.9 G/DL (CALC) 1.9-3.7 N code = 2336-6) [facility] Healthalbumin, qnqkc9467-49-26 13:17:00 Test Item Value Reference Range Interpretation Comments albumin, serum (test code = 1751-7) 4.0 g/dL 3.6-5.1 N [facility] Healthprotein, total, zuxsb8025-05-53 13:17:00 Test Item Value Reference Range Interpretation Comments protein, total, serum (test code = 6.9 g/dL 6.1-8.1 N 2885-2) [facility] Healthcalcium, vkwyp7645-55-76 13:17:00 Test Item Value Reference Range Interpretation Comments calcium, serum (test code = 1999-8) 9.8 mg/dL 8.6-10.2 N [facility] Healthcarbon dioxide, venous fmbmb7492-54-15 13:17:00 Test Item Value Reference Range Interpretation Comments carbon dioxide, venous blood (test 22 mmol/L 20-31 N code = 7-1) [facility] Healthchloride, wbgxh0171-89-74 13:17:00 Test Item Value Reference Range Interpretation Comments chloride, serum (test code = 103 mmol/L 98-110 N 5-0) [facility]potassium, cflwv7373-92-35 13:17:00 Test Item Value Reference Range Interpretation Comments potassium, serum (test code = 4.6 mmol/L 3.5-5.3 N 2823-3) [facility]sodium, wsosl5684-15-92 13:17:00 Test Item Value Reference Range Interpretation Comments sodium, serum (test code = 2951-2) 135 mmol/L 135-146 N [facility] Healthurea nitrogen/creatinine ratio, dyhoq1909-60-62 13:17:00 Test Item Value Reference Range Interpretation Comments urea NOT APPLICABLE (calc) 6-22 nitrogen/creatinine ratio, serum (test code = 3097-3) [facility]altheGFR if Tvbihwvv6761-35-76 13:17:00 Test Item Value Reference Range Interpretation Comments eGFR if 120 > OR = 60 N (test code = 20158-2) mL/min/((173/100).m2) [facility] HealthEstimated Glomerular Filtration Rate (calc)2017-07-30 13:17:00 Test Item Value Reference Range Interpretation Comments Estimated Glomerular 104 > OR = 60 N Filtration Rate (calc) mL/min/((173/100).m2 (test code = 54172-3) ) [facility] Healthcreatinine, [id number] 13:17:00 Test Item Value Reference Range Interpretation Comments creatinine, serum (test code = 0.69 mg/dL 0.50-1.10 N 2160-0) [facility] Healthurea nitrogen, gqwjw0871-12-27 13:17:00 Test Item Value Reference Range Interpretation Comments urea nitrogen, blood (test code = 10 mg/dL 7-25 N 3094-0) [facility] Healthblood glucose, [id number] 13:17:00 Test Item Value Reference Range Interpretation Comments blood glucose, random (test code = 180 mg/dL 65-99 H 2339-0) [facility] HealthHIV-CMIA (Chemiluminescent Microparticle Immuno Assay) 2017-07-30 13:17:00 Test Item Value Reference Range Interpretation Comments HIV-CMIA (Chemiluminescent NON-REACTIVE NON-REACTIVE N Microparticle Immuno Assay) (test code = 941905) [facility]cholesterol, non-HDL, [id number] 13:17:00 Test Item Value Reference Range Interpretation Comments cholesterol, non-HDL, total 176 MG/DL (CALC) <130 H (test code = 71594) [facility]cholesterol/HDL ratio, serum, vrmchxs1072-12-96 13:17:00 Test Item Value Reference Range Interpretation Comments cholesterol/HDL ratio, serum, 4.7 (calc) <5.0 N percent (test code = 2404) [facility] HealthLDL cholesterol, [id number] 13:17:00 Test Item Value Reference Range Interpretation Comments LDL cholesterol, serum (test 133 MG/DL (CALC) H code = 2088-1) [facility]althtriglyceride, serum, uxwpfpq1950-61-51 13:17:00 Test Item Value Reference Range Interpretation Comments triglyceride, serum, fasting (test 301 mg/dL <150 H code = 2571-8) [facility] HealthHDL cholesterol, uuroq6033-60-04 13:17:00 Test Item Value Reference Range Interpretation Comments HDL cholesterol, serum (test code = 47 mg/dL >50 L 2084-9) [facility]cholesterol, [id number] 13:17:00 Test Item Value Reference Range Interpretation Comments cholesterol, serum (test code = 223 mg/dL <200 H 2092-3) [facility]alththyroid stimulating hormone, wioft1733-30-13 09:48:00 Test Item Value Reference Range Interpretation Comments thyroid stimulating hormone, 1.460 u[iU]/mL 0.450-4.500 serum (test code = 3016-3) [facility] Healthhemoglobin A1C, blood, as % of total cmmdhujpib9128-11-48 09:48:00 Test Item Value Reference Range Interpretation Comments hemoglobin A1C, blood, as % of total 9.4 % 4.8-5.6 H hemoglobin (test code = 4548-4) [facility] Healthmicroalbumin/creatinine ratio, knkje2574-08-42 09:48:00 Test Item Value Reference Range Interpretation Comments microalbumin/creatinine 54.1 MG/G CREAT 0.0-30.0 H ratio, urine (test code = 29670-5) [facility]microalbumin/total urine ayedcz6869-90-82 09:48:00 Test Item Value Reference Range Interpretation Comments microalbumin/total urine volume 15.9 mg/L (test code = 53341-5) [facility] Healthcreatinine, random, gxevc0667-88-50 09:48:00 Test Item Value Reference Range Interpretation Comments creatinine, random, urine (test 29.4 mg/dL code = 2161-8) [facility] HealthLDL cholesterol, [id number] 09:48:00 Test Item Value Reference Range Interpretation Comments LDL cholesterol, serum (test code = 111 mg/dL 0-99 H 2088-) [facility] Healthvery low density yjxjsytxcluw8723-93-13 09:48:00 Test Item Value Reference Range Interpretation Comments very low density lipoproteins (test 63 mg/dL 5-40 H code = 2091-7) [facility] HealthHDL cholesterol, [id number] 09:48:00 Test Item Value Reference Range Interpretation Comments HDL cholesterol, serum (test code = 45 mg/dL >39 2084-9) [facility]htriglyceride, serum, mwghmiw8904-64-91 09:48:00 Test Item Value Reference Range Interpretation Comments triglyceride, serum, fasting (test 313 mg/dL 0-149 H code = 2571-8) [facility]cholesterol, riddo0481-86-57 09:48:00 Test Item Value Reference Range Interpretation Comments cholesterol, serum (test code = 219 mg/dL 100-199 H 2093-3) [facility]alanine aminotransferase (SGPT), asptd2503-23-03 09:48:00 Test Item Value Reference Range Interpretation Comments alanine aminotransferase (SGPT), serum 23 1/L 0-32 (test code = 1742-6) [facility] Healthaspartate aminotransferase (SGOT), opzit7990-61-43 09:48:00 Test Item Value Reference Range Interpretation Comments aspartate aminotransferase (SGOT), 18 1/L 0-40 serum (test code = 1920-8) [facility] Healthalkaline phosphatase, [id number] 09:48:00 Test Item Value Reference Range Interpretation Comments alkaline phosphatase, serum (test code 86 1/L 39-117 = 1783-0) [facility]bilirubin, serum, [id number] 09:48:00 Test Item Value Reference Range Interpretation Comments bilirubin, serum, total (test code <0.2 mg/dL 0.0-1.2 = 1975-2) [facility]albumin/globulin ratio, rozcz9082-54-89 09:48:00 Test Item Value Reference Range Interpretation Comments albumin/globulin ratio, serum (test 1.5 1.1-2.5 code = 1759-0) [facility] Healthglobulin, dysxi5136-14-48 09:48:00 Test Item Value Reference Range Interpretation Comments globulin, serum (test code = 2336-6) 2.9 1.5-4.5 [facility] Healthalbumin, blocy2870-96-71 09:48:00 Test Item Value Reference Range Interpretation Comments albumin, serum (test code = 1751-7) 4.4 g/dL 3.5-5.5 [facility]protein, total, [id number] 09:48:00 Test Item Value Reference Range Interpretation Comments protein, total, serum (test code = 7.3 g/dL 6.0-8.5 2885-2) [facility] Healthcalcium, bozen9784-95-37 09:48:00 Test Item Value Reference Range Interpretation Comments calcium, serum (test code = 10.0 mg/dL 8.7-10.2 1999-8) [facility] Healthcarbon dioxide, venous arvmr0883-90-01 09:48:00 Test Item Value Reference Range Interpretation Comments carbon dioxide, venous blood (test 19 mmol/L 18-29 code = 2027-1) [facility] Healthchloride, ahuzd8217-42-85 09:48:00 Test Item Value Reference Range Interpretation Comments chloride, serum (test code = 95 mmol/L 97-106 L 2075-0) [facility] Healthpotassium, kfbzh4665-76-89 09:48:00 Test Item Value Reference Range Interpretation Comments potassium, serum (test code = 4.8 mmol/L 3.5-5.2 2823-3) [facility] Healthsodium, rhljv6375-97-09 09:48:00 Test Item Value Reference Range Interpretation Comments sodium, serum (test code = 2951-2) 132 mmol/L 136-144 L [facility]urea nitrogen/creatinine ratio, doaug8364-46-44 09:48:00 Test Item Value Reference Range Interpretation Comments urea nitrogen/creatinine ratio, serum 19 9-23 (test code = 3097-3) [facility] HealtheGFR if Iyefgfsi4013-80-51 09:48:00 Test Item Value Reference Range Interpretation Comments eGFR if 111 >59 (test code = 27638-9) mL/min/((173/100).m2) [facility] HealthEstimated Glomerular Filtration Rate (calc)2016-06-16 09:48:00 Test Item Value Reference Range Interpretation Comments Estimated Glomerular 96 >59 Filtration Rate (calc) mL/min/((173/100).m2 (test code = 46987-0) ) [facility] Healthcreatinine, [id number] 09:48:00 Test Item Value Reference Range Interpretation Comments creatinine, serum (test code = 0.75 mg/dL 0.57-1.00 2160-0) [facility] Healthurea nitrogen, feijv9294-07-78 09:48:00 Test Item Value Reference Range Interpretation Comments urea nitrogen, blood (test code = 14 mg/dL 6-24 3094-0) [facility] Healthblood glucose, kirfiy0020-47-21 09:48:00 Test Item Value Reference Range Interpretation Comments blood glucose, random (test code = 345 mg/dL 65-99 H 2339-0) [facility] Healthimmature granulocytes, percentage of total cells, blood 2016-06-16 09:48:00 Test Item Value Reference Range Interpretation Comments immature granulocytes, percentage of 0 % total cells, blood (test code = 37533-3) [facility] Healthbasophil count, thcxtpll7726-00-31 09:48:00 Test Item Value Reference Range Interpretation Comments basophil count, absolute (test 0.1 x10E3/uL 0.0-0.2 code = 71096-5) [facility] HealthEosinophil Absolute [id number] 09:48:00 Test Item Value Reference Range Interpretation Comments Eosinophil Absolute Count (test 0.4 X10E3/UL 0.0-0.4 code = 61966-2) [facility] Healthmonocyte count, blood, hbazyyohb2782-54-82 09:48:00 Test Item Value Reference Range Interpretation Comments monocyte count, blood, automated 0.5 X10E3/UL 0.1-0.9 (test code = 742-7) [facility]lymphocyte count, blood, autpgaaqt6328-62-38 09:48:00 Test Item Value Reference Range Interpretation Comments lymphocyte count, blood, 3.3 X10E3/UL 0.7-3.1 H automated (test code = 731-0) [facility] HealthAbsolute Dcqghflxabt9949-78-07 09:48:00 Test Item Value Reference Range Interpretation Comments Absolute Neutrophils (test code 7.2 X10E3/UL 1.4-7.0 H = 74836-4) [facility] Healthbasophils as percent of blood xomarzobtk8729-10-09 09:48:00 Test Item Value Reference Range Interpretation Comments basophils as percent of blood 1 % leukocytes (test code = 707-0) [facility] Healtheosinophils as percent of blood trkqjzutts5990-35-31 09:48:00 Test Item Value Reference Range Interpretation Comments eosinophils as percent of blood 3 % leukocytes (test code = 713-8) [facility] Healthmonocytes as percent of blood qfegulvong9128-97-69 09:48:00 Test Item Value Reference Range Interpretation Comments monocytes as percent of blood 4 % leukocytes (test code = 5905-5) [facility] Healthlymphocytes as percent of blood eqoyerhpbg1195-00-03 09:48:00 Test Item Value Reference Range Interpretation Comments lymphocytes as percent of blood 29 % leukocytes (test code = 736-9) [facility] Healthneutrophils as percent of blood kasgxfaxjz4077-48-36 09:48:00 Test Item Value Reference Range Interpretation Comments neutrophils as percent of blood 63 % leukocytes (test code = 770-8) [facility] Healthplatelet pwlwa0339-80-25 09:48:00 Test Item Value Reference Range Interpretation Comments platelet count (test code = 377 X10E3/UL 150-379 777-3) [facility]red blood cell distribution aqwug3980-26-39 09:48:00 Test Item Value Reference Range Interpretation Comments red blood cell distribution width 14.5 % 12.3-15.4 (test code = 788-0) [facility] corpuscular hemoglobin concentration, OGP0180-03-85 09:48:00 Test Item Value Reference Range Interpretation Comments mean corpuscular hemoglobin 33.0 G/DL 31.5-35.7 concentration, RBC (test code = 786-4) [facility] corpuscular hemoglobin, [id number] 09:48:00 Test Item Value Reference Range Interpretation Comments mean corpuscular hemoglobin, RBC 29.1 pg 26.6-33.0 (test code = 785-6) [facility] corpuscular volume, [id number] 09:48:00 Test Item Value Reference Range Interpretation Comments mean corpuscular volume, RBC (test code 88 fL 79-97 = 787-2) [facility] Healthhematocrit, vtyrb5312-12-35 09:48:00 Test Item Value Reference Range Interpretation Comments hematocrit, blood (test code = 4544-3) 41.5 % 34.0-46.6 [facility]hemoglobin, dfmwi1714-35-43 09:48:00 Test Item Value Reference Range Interpretation Comments hemoglobin, blood (test code = 13.7 g/dL 11.1-15.9 718-7) [facility]altherythrocyte (RBC) rygtu2612-01-74 09:48:00 Test Item Value Reference Range Interpretation Comments erythrocyte (RBC) count (test 4.70 X10E6/UL 3.77-5.28 code = 789-8) [facility] Healthleukocyte count, hlobr7125-07-65 09:48:00 Test Item Value Reference Range Interpretation Comments leukocyte count, blood (test 11.5 X10E3/UL 3.4-10.8 H code = 6690-2) [facility] zosuit3790-18-30 08:28:26 Test Item Value Reference Range Interpretation Comments blood glucose, random (test code = 387 mg/dL 2339-0) [facility]
[2022-04-26] MEDS ORDERED: ONDANSETRON 4 MG/2 ML VIAL ONE (23:04)
[2022-04-26] MEDS ORDERED: HYDROMORPHONE HCL 1 MG/ML INJ ONE ×2 (23:04→23:31)
[2022-04-26] MEDS ORDERED: NA CHLORIDE 0.9% 500 ML ONE (23:04)
[2022-04-26 23:31] LABS: Absolute Lymphocytes (CBC) 2.2 K/uL (0.7-4.9); Hematocrit 37.1 % (36.0-45.0); Lymphocytes % 18.4 % (15.3-44.8); MPV 8.2 fL (7.6-11.3); RBC Red Blood Cell Count 4.08 M/uL (3.86-4.86)
[2022-04-26 23:32] LABS: Protime INR 0.85
[2022-04-26 23:43] LABS: ALT/SGPT 19 U/L (12-78); AST/SGOT 17 U/L (15-37); Albumin 3.5 g/dL (3.4-5.0); Alkaline Phosphatase 75 U/L (45-117); BUN Blood Urea Nitrogen 26 mg/dL (7-18); Bicarbonate 24 mmol/L (21-32); Bilirubin Total 0.2 mg/dL (0.2-1.0); Glomerular Filtration Rate 53 ml/min (=/>90); Glucose Level 114 mg/dL (74-106); Magnesium 2.1 mg/dL (1.8-2.4); NT PRO-BNP 544 pg/mL (<125); Potassium 4.2 mmol/L (3.5-5.1); Protein, Total 7.1 g/dL (6.4-8.2); Sodium Level 137 mmol/L (136-145)
[2022-04-27 00:08] LABS: Bilirubin Direct < 0.1 mg/dL (0-0.2)
[2022-04-27] MEDS ORDERED: HYDROMORPHONE HCL 1 MG/ML INJ ONE (00:14)
[2022-04-27] MEDS ORDERED: PROMETHAZINE INJ 25 MG/ML AMP ONE (00:14)
[2022-04-27 02:16] LABS: SARS-CoV-2 Antigen Rapid Res Negative (Negative)
[2022-04-27 03:41] LABS: Urine Blood 3+ (Negative); Urine Glucose Negative (Negative); Urine Protein 1+ (Negative); Urine pH 5.5 (5.0-7.0)
--- NOTE | 2022-04-27 03:43 | ER ---
Nurse's Notes [facility] Name: Noy Lang Age: 51 yrs Sex: Female : 1970 Arrival Date: 04/26/2022 Time: 22:25 Bed 4 Private MD: Diagnosis: Pelvic and perineal pain;Pain in right hip;Other and unspecified ovarian cysts-13 cm right adenexal cyst, cystic neoplasm;UTI/ Urinary tract infection, site not specified Presentation: 04/26 22:27 Chief complaint: Patient states: I took two 5mg Hydrocone's about an hour ago. 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 She has medications for the pain but says it is not working. Coronavirus screen: At this time, the client does not indicate any symptoms associated with coronavirus-19. Ebola Screen: No symptoms or risks identified at this time. Initial Sepsis Screen: Does the patient meet any 2 criteria? No. Patient's initial sepsis screen is negative. Does the patient have a suspected source of infection? No. Patient's initial sepsis screen is negative. Risk Assessment: Do you want to hurt yourself or someone else? Patient reports no desire to harm self or others. Onset of symptoms was April 26, 2022. Transition of care: patient was not received from another setting of care. 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 - Social history:: Smoking status: Patient reports the use of cigarette tobacco products, smokes one pack cigarettes per day. - Family history:: not pertinent. Screenin/30 00:30 Abuse screen: Denies threats or abuse. Nutritional screening: No deficits noted. Tuberculosis screening: Fall Risk None identified. Assessment: 04/26 22:45 General: Appears in no apparent distress. uncomfortable, Behavior is calm, cooperative, jb4 appropriate for age. Pain: Complains of pain in right leg Pain does not radiate. Pain currently is 10 out of 10 on a pain scale. Neuro: Boateng Agitation-Sedation Scale (RASS): 0 - Alert and Calm Level of Consciousness is awake, alert, obeys commands, Oriented to person, place, time, situation. Cardiovascular: Patient's skin is warm and dry. Respiratory: Airway is patent Respiratory effort is even, unlabored, Respiratory pattern is regular, symmetrical. Derm: Skin is intact, Skin is pink, warm \T\ dry. Musculoskeletal: Circulation, motion, and sensation intact. Range of motion: intact in all extremities. 04/27 00:00 Reassessment: Patient appears in no apparent distress at this time. Patient and/or jb4 family updated on plan of care and expected duration. Pain level reassessed. Patient is alert, oriented x 3, equal unlabored respirations, skin warm/dry/pink. Pt continues to have 10/10 pain, see MAR for orders. 01:00 Reassessment: Patient appears in no apparent distress at this time. Patient and/or kl family updated on plan of care and expected duration. Pain level reassessed. Patient is alert, oriented x 3, equal unlabored respirations, skin warm/dry/pink. 02:00 Reassessment: Patient appears in no apparent distress at this time. Patient and/or kl family updated on plan of care and expected duration. Pain level reassessed. Patient is alert, oriented x 3, equal unlabored respirations, skin warm/dry/pink. Vital Signs: 04/26 22:27 BP 157 / 65; Pulse 79; Resp 16; Temp 98.5(O); Pulse Ox 99% on R/A; Pain 10/10; jb4 04/27 04:17 BP 138 / 65; Pulse 82; Resp 18; Pulse Ox 98% on R/A; ED Course: 04/26 22:25 Patient arrived in ED. mw2 22:27 Fco Mills, RN is Primary Nurse. jb4 22:29 Triage completed. jb4 22:29 Arm band placed on right wrist. jb4 22:33 Alvarez Magaña MD is Attending Physician. cher 23:00 Inserted saline lock: 20 gauge in right forearm, using aseptic technique. kl 23:14 Basic Metabolic Panel Sent. kl 23:14 CBC with Diff Sent. kl 23:14 LFT's Sent. kl 23:14 Magnesium Sent. kl 23:14 NT PRO-BNP Sent. kl 23:15 PT-INR Sent. kl 23:15 Troponin HS Sent. kl 23:56 XRAY Chest (1 view) In Process Unspecified. EDMS 23:56 Pelvis XRAY In Process Unspecified. EDMS 23:56 Hip Right 2 View XRAY In Process Unspecified. EDMS 04/27 00:11 Regina [phone]. mw2 00:30 Patient has correct armband on for positive identification. kl 01:00 CT Abd/Pelvis - IV Contrast Only In Process Unspecified. EDMS 02:11 US Transvaginal Study (Probe) In Process Unspecified. EDMS 03:42 Charu Alvarez MD is Referral Physician. [facility] 04:30 No provider procedures requiring assistance completed. kl 04:31 IV discontinued, intact, bleeding controlled, No redness/swelling at site. Pressure kl dressing applied. Administered Medications: 04/26 23:05 Drug: NS 0.9% 500 ml Route: IV; Rate: bolus; Site: right wrist; 04/27 00:15 Follow up: IV Status: Completed infusion; IV Intake: 500ml kl 04/26 23:05 Drug: Dilaudid (HYDROmorphone) 1 mg Route: IVP; Site: right wrist; kl 23:25 Follow up: Response: No change in condition; Pain is unchanged, physician notified 23:05 Drug: Zofran (Ondansetron) 4 mg Route: IVP; Site: right wrist; kl 23:28 Drug: Dilaudid (HYDROmorphone) 1 mg Route: IVP; Site: right wrist; 04/27 00:05 Follow up: Response: No change in condition; Pain is unchanged, physician notified 00:10 Drug: Dilaudid (HYDROmorphone) 1 mg Route: IVP; Site: right wrist; 00:30 Follow up: Response: Marked relief of symptoms kl 00:10 Drug: Phenergan (promethazine) 12.5 mg Route: IVP; Site: right wrist; kl 00:30 Follow up: Response: Marked relief of symptoms kl 01:39 Not Given (Pain is well controlled at this timee): Ketorolac 30 mg IVP once jb4 03:48 Drug: Rocephin (cefTRIAXone) 1 grams Route: IV; Rate: per protocol; Site: right wrist; Medication: 04:32 VIS not applicable for this client. Intake: 00:15 IV: 500ml; Total: 500ml. Outcome: 03:42 Discharge ordered by . cher 04:31 Discharged to home via wheelchair, with family. 04:31 Condition: good 04:31 Discharge instructions given to patient, Instructed on discharge instructions, follow up and referral plans. medication usage, Demonstrated understanding of instructions, follow-up care, medications, Prescriptions given X 2. 04:32 Patient left the ED. Signatures: Dispatcher [employer] EDMS Alanna Virk, Alvarez Cheema RN, MD MD cha Bryson, James, RN RN Helena Piper mw2
--- NOTE | 2022-04-27 03:44 | EDPHYS ---
Physician Documentation [facility] Name: Noy Lang Age: 51 yrs Sex: Female : 1970 Arrival Date: 04/26/2022 Time: 22:25 Bed 4 Private MD: LARRY Physician Alvarez Magaña HPI: 04/26 22:46 This 51 yrs old Female presents to ER via EMS with complaints of abdomen pain cher right hip pain. 22:46 The patient or guardian reports decreased range of motion, pain. that occurred at an cher unknown site. The complaints affect the right femoral area, right inguinal area and right hip. Onset: The symptoms/episode began/occurred 2 day(s) ago. Modifying factors: The symptoms are alleviated by nothing, the symptoms are aggravated by any movement. The patient presents with abdominal pain in the upper abdomen, in the lower abdomen. Onset: The symptoms/episode began/occurred 2 day(s) ago. Associated signs and symptoms: Loss of consciousness: the patient experienced no loss of consciousness, Pertinent positives: abdominal pain, Pertinent negatives: None. 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 MANAGEMENT SPECIALIST: 04/27 04:31 LMP N/A - Post-menopause kl Historical: - Allergies: 04/26 22:29 NKA; jb4 23:30 Codeine; kl - Home Meds: 22:29 Levemir U-100 Insulin 100 unit/mL subcutaneous soln [Active]; Metformin Oral [Active]; jb4 Metoprolol Tartrate Oral [Active]; Tramadol Oral [Active]; hydrocodone-acetaminophen Oral [Active]; 23:30 gabapentin Oral [Active]; kl - PMHx: 22:29 coronary atherosclerosis; diabetes mellitus; Hypertensive disorder; Myocardial jb4 infarction; Ovarian Cancer; uterine cancer; abdominal cancer; - PSHx: 22:29 Heart Stents; jb4 - Immunization history:: Adult Immunizations up to date, . - Social history:: Smoking status: Patient reports the use of cigarette tobacco products, smokes one pack cigarettes per day. - Family history:: not pertinent. ROS: 22:46 Constitutional: Negative for fever, chills, and weight loss, Eyes: Negative for injury, cher pain, redness, and discharge, ENT: Negative for injury, pain, and discharge, Neck: Negative for injury, pain, and swelling, Cardiovascular: Negative for chest pain, palpitations, and edema, Respiratory: Negative for shortness of breath, cough, wheezing, and pleuritic chest pain, Back: Negative for injury and pain, : Negative for injury, bleeding, discharge, and swelling, Skin: Negative for injury, rash, and discoloration, Neuro: Negative for headache, weakness, numbness, tingling, and seizure, Psych: Negative for depression, anxiety, suicide ideation, homicidal ideation, and hallucinations, Allergy/Immunology: Negative for hives, rash, and allergies, Endocrine: Negative for neck swelling, polydipsia, polyuria, polyphagia, and marked weight changes, Hematologic/Lymphatic: Negative for swollen nodes, abnormal bleeding, and unusual bruising. 22:46 Abdomen/GI: Positive for abdominal pain, abdominal distension. 22:46 MS/extremity: Positive for decreased range of motion, pain, tenderness, of the right hip and right upper thigh. Exam: 22:46 Constitutional: This is a well developed, well nourished patient who is awake, alert, cher and in no acute distress. Head/Face: Normocephalic, atraumatic. Eyes: Pupils equal round and reactive to light, extra-ocular motions intact. Lids and lashes normal. Conjunctiva and sclera are non-icteric and not injected. Cornea within normal limits. Periorbital areas with no swelling, redness, or edema. ENT: Nares patent. No nasal discharge, no septal abnormalities noted. Tympanic membranes are normal and external auditory canals are clear. Oropharynx with no redness, swelling, or masses, exudates, or evidence of obstruction, uvula midline. Mucous membranes moist. Neck: Trachea midline, no thyromegaly or masses palpated, and no cervical lymphadenopathy. Supple, full range of motion without nuchal rigidity, or vertebral point tenderness. No Meningismus. Chest/axilla: Normal chest wall appearance and motion. Nontender with no deformity. No lesions are appreciated. Cardiovascular: Regular rate and rhythm with a normal S1 and S2. No gallops, murmurs, or rubs. Normal PMI, no JVD. No pulse deficits. Respiratory: Lungs have equal breath sounds bilaterally, clear to auscultation and percussion. No rales, rhonchi or wheezes noted. No increased work of breathing, no retractions or nasal flaring. Back: No spinal tenderness. No costovertebral tenderness. Full range of motion. Pelvic Exam: Normal external genitalia. Speculum exam with closed cervical os, no discharge or bleeding noted. Bimanual exam with normal adnexa, no adnexal or cervical motion tenderness. Normal uterus. Female : Normal external genitalia. Skin: Warm, dry with normal turgor. Normal color with no rashes, no lesions, and no evidence of cellulitis. Neuro: Awake and alert, GCS 15, oriented to person, place, time, and situation. Cranial nerves II-XII grossly intact. Motor strength 5/5 in all extremities. Sensory grossly intact. Cerebellar exam normal. Normal gait. Psych: Awake, alert, with orientation to person, place and time. Behavior, mood, and affect are within normal limits. 22:46 Abdomen/GI: Inspection: distension, that is mild, that is moderate, Bowel sounds: normal, Palpation: moderate abdominal tenderness, in the right upper quadrant, left upper quadrant, right lower quadrant and left lower quadrant, Liver: no appreciated palpable abnormalities, Hernia: not appreciated. Vital Signs: 22:27 BP 157 / 65; Pulse 79; Resp 16; Temp 98.5(O); Pulse Ox 99% on R/A; Pain 10/10; jb4 04/27 04:17 BP 138 / 65; Pulse 82; Resp 18; Pulse Ox 98% on R/A; kl MDM: 04/26 22:33 Patient medically screened. cher 22:49 Differential diagnosis: hip fracture, intertrochanteric fracture, bursitis, arthritis, cher strain, non-specific abd pain, pancreatitis. Data reviewed: vital signs, nurses notes, lab test result(s), EKG, radiologic studies, CT scan, plain films. Data interpreted: tv technician: rate is 79 beats/min, rhythm is regular, Pulse oximetry: on room air is 99 %. Test interpretation: by ED physician or midlevel provider: ECG, plain radiologic studies. Counseling: I had a detailed discussion with the patient and/or guardian regarding: the historical points, exam findings, and any diagnostic results supporting the discharge/admit diagnosis, lab results, radiology results. 04/26 22:40 Order name: Basic Metabolic Panel; Complete Time: 02:19 cher 04/26 22:40 Order name: CBC with Diff; Complete Time: 00:00 [facility] 04/26 22:40 Order name: LFT's; Complete Time: 02:19 [facility] 04/26 22:40 Order name: Magnesium; Complete Time: 02:19 [facility] 04/26 22:40 Order name: NT PRO-BNP; Complete Time: 02:19 [facility] 04/26 22:40 Order name: PT-INR; Complete Time: 00:00 [facility] 04/26 22:40 Order name: Troponin HS; Complete Time: 02:19 [facility] 04/26 22:40 Order name: XRAY Chest (1 view) [facility] 04/26 22:40 Order name: CT Abd/Pelvis - IV Contrast Only [facility] 04/26 22:40 Order name: Pelvis XRAY [facility] 04/26 22:40 Order name: Hip Right 2 View XRAY [facility] 04/27 00:05 Order name: SARS RAPID; Complete Time: 02:19 mw2 04/27 03:41 Order name: Urine Dipstick-Ancillary; Complete Time: 04:04 EDMS 04/27 03:41 Order name: Urine Culture [facility] 04/26 22:40 Order name: EKG; Complete Time: 22:41 [facility] 04/26 22:40 Order name: Cardiac monitoring; Complete Time: 22:46 [facility] 04/26 22:40 Order name: EKG - Nurse/Tech; Complete Time: 23:11 [facility] 04/26 22:40 Order name: IV Saline Lock; Complete Time: 22:46 [facility] 04/26 22:40 Order name: Labs collected and sent; Complete Time: 23:18 [facility] 04/26 22:40 Order name: O2 Per Protocol; Complete Time: 22:46 [facility] 04/27 01:30 Order name: US Transvaginal Study (Probe) [facility] 04/26 22:40 Order name: O2 Sat Monitoring; Complete Time: 22:46 [facility] 04/27 02:31 Order name: Misc. Order: cath urine [facility] Administered Medications: 23:05 Drug: NS 0.9% 500 ml Route: IV; Rate: bolus; Site: right wrist; 04/27 00:15 Follow up: IV Status: Completed infusion; IV Intake: 500ml 04/26 23:05 Drug: Dilaudid (HYDROmorphone) 1 mg Route: IVP; Site: right wrist; 23:25 Follow up: Response: No change in condition; Pain is unchanged, physician notified 23:05 Drug: Zofran (Ondansetron) 4 mg Route: IVP; Site: right wrist; kl 23:28 Drug: Dilaudid (HYDROmorphone) 1 mg Route: IVP; Site: right wrist; kl 04/27 00:05 Follow up: Response: No change in condition; Pain is unchanged, physician notified kl 00:10 Drug: Dilaudid (HYDROmorphone) 1 mg Route: IVP; Site: right wrist; kl 00:30 Follow up: Response: Marked relief of symptoms kl 00:10 Drug: Phenergan (promethazine) 12.5 mg Route: IVP; Site: right wrist; kl 00:30 Follow up: Response: Marked relief of symptoms kl 01:39 Not Given (Pain is well controlled at this timee): Ketorolac 30 mg IVP once jb4 03:48 Drug: Rocephin (cefTRIAXone) 1 grams Route: IV; Rate: per protocol; Site: right wrist; kl Disposition Summary: 04/27/22 03:42 Discharge Ordered Location: Home cher Problem: new cher Symptoms: have improved cher Condition: Stable cher Diagnosis - Pelvic and perineal pain cher - Pain in right hip cher - Other and unspecified ovarian cysts - 13 cm right adenexal cyst, cystic neoplasm cher - UTI/ Urinary tract infection, site not specified cher Followup: cher - With: Private Physician - When: 1 - 2 days - Reason: Recheck today's complaints, Continuance of care, Re-evaluation by your physician Followup: cher - With: - When: 2 - 3 days - Reason: Recheck today's complaints, Continuance of care, Re-evaluation by your physician Discharge Instructions: - Discharge Summary Sheet cher - Pelvic Pain, Female cher - Pelvic Pain, Female, [id number] cher - Hip Pain cher - Urinary Tract Infection, Adult cher - Urinary Tract Infection, Adult, [id number] cher - Ovarian Cancer cher Forms: - Medication Reconciliation Form cher - Thank You Letter cher - Antibiotic Education cher - Prescription Opioid Use cher Prescriptions: - Diclofenac Sodium 75 mg Oral tablet,delayed release (DR/EC) - take 1 tablet by ORAL route 2 times per day; 20 tablet; Refills: 0, Product cher Selection Permitted - Bactrim DS 800-160 mg Oral Tablet - take 1 tablet by ORAL route every 12 hours for 7 days; 14 tablet; Refills: 0, cher Product Selection Permitted Signatures: Dispatcher [employer] Alanna Hull, Alvarez Cheema RN, MD MD cha Bryson, James, RN RN jb4 More Gonzalez PA PA [id number]
[2022-04-27] MEDS ORDERED: CEFTRIAXONE 1000 MG/VIAL ONE (03:53)
[2022-04-27 04:37] VITALS: TEMP 98.5
[2022-04-27 04:39] VITALS: BP 138/65; O2SAT 98
--- NOTE | 2022-04-27 08:13 | EKG ---
Test Date: 2022-04-26 Test Time: 23:05:34 Student Education Specialist: MARICRUZ MEASUREMENT RESULTS: Intervals: Rate: 72 SD: 148 QRSD: 102 QT: 420 QTc: 459 [place]: P: 69 SD: 148 QRS: -41 T: 81 INTERPRETIVE STATEMENTS: Normal sinus rhythm Left axis deviation Incomplete right bundle branch block Moderate voltage criteria for LVH, may be normal variant Cannot rule out Septal infarct, age undetermined Abnormal ECG Compared to ECG 03/01/2022 07:55:08 Incomplete right bundle-branch block now present Myocardial infarct finding now present Sinus bradycardia no longer present ST (T wave) deviation no longer present Electronically Signed On 04-27-22 08:11:57 CDT by Tr Victor
--- NOTE | 2022-04-27 13:23 | RAD REPORT ---
EXAM DESCRIPTION: US - Transvaginal Study Probe - 04/27/2022 3:22 am CLINICAL HISTORY: 51 years, Female, ABD PAIN COMPARISON: Recent CT scan of the abdomen and pelvis. TECHNIQUE: Utilizing a transvaginal array transducer, real-time ultrasound evaluation of the female pelvis was performed. Color Doppler imaging was used to assess vascular flow. FINDINGS: The uterus measures 8.1 x 3.2 cm. The endometrial stripe demonstrate to be normal. No fo gaby masses were identified within the uterus. There is a complex right cystic lesion measuring approximately 12.6 x 8.4 x 9.9 cm. Neither ovary could be identified. There is no free fluid within the posterior cul-de-sac IMPRESSION: 13 cm right adnexal cyst, concern for low-grade cystic neoplasm. Gynecology consult micheal mmended and consider MR with IV contrast if clinically warranted. Reference: JACR 2019;17(2):248- 254 Electronically signed by: Bandar Box MD 04/27/2022 2:29 AM CDT Due to temporary technical issues with the PACS/Fluency reporting system, reports are being signed by the in house radiologists without review as a courtesy to insure prompt reporting. The interpreting radiologist is fully responsible for the content of the report.
--- NOTE | 2022-04-27 13:34 | RAD REPORT ---
EXAM DESCRIPTION: CT - Abdomen Pelvis W Contrast - 04/27/2022 6:38 am CLINICAL HISTORY: 51 years, Female, Abdominal pain, acute, nonlocalized COMPARISON: 03/19 TECHNIQUE: Contrast-enhanced images of the abdomen and pelvis were performed utilizing 5 mm slice th ickness at 5 mm interval reconstruction from the lung bases to the ischial tuberosities after the adm inistration of IV contrast. In addition multiplanar reformats in the coronal and sagittal plane were obtained and reviewed. This exam was performed according to our departmental dose-optimization protocol, which includes auto mated exposure control, adjustment of the mA and/or kV according to patient size and/or use of iterat mehdi reconstruction technique. FINDINGS: The lung bases demonstrate to be clear. Minimal dependent atelectatic changes The liver demonstrate slight decreased attenuation suggesting mild fatty dictation. Otherwise the edin er, gallbladder, pancreas, spleen and adrenal glands demonstrate to be unremarkable, no focal lesions are noted. The kidneys demonstrate normal uptake of contrast media. No evidence for nephrolithiasis and/or hydro nephrosis. Grossly the unopacified stomach, small bowel and large bowel demonstrate to be within normal limits. There is no evidence for bowel dilatation/or free air. There is mild fecal stasis. The appendix is unremarkable. The urinary bladder demonstrate to be unremarkable. The uterus demonstrate the presence of hypodens ity within the endometrial cavity perhaps testing the administration /Or fluid within the endometrial cavity. There is fluid within the endometrial cavity. There is a rig ht adnexal cystic lesion measuring 13 x 10 cm on axial image 76. The aorta demonstrate minimal athe romatous plaque formation. There is no retroperitoneal lymphadenopathy. There is no evidence for as cites/or significant abnormal fluid collection. The rest of the soft tissue and bony structures are w ithin normal limits. IMPRESSION: 13 cm right adnexal cyst, concern for low-grade cystic neoplasm. Gynecology consult micheal mmended and consider MR with IV contrast if clinically warranted. Reference: JACR 2019;17(2):248- 254 Mild fecal stasis. Mild fatty infiltration of the liver. Electronically signed by: Bandar Box MD 04/27/2022 1:17 AM CDT Due to temporary technical issues with the PACS/Fluency reporting system, reports are being signed by the in house radiologists without review as a courtesy to insure prompt reporting. The interpreting radiologist is fully responsible for the content of the report.
--- NOTE | 2022-04-27 13:49 | RAD REPORT ---
EXAM DESCRIPTION: RAD - Hip Right 2 View - 04/26/2022 11:55 pm CLINICAL HISTORY: 51 years, Female, PAIN Hip Right 2 View COMPARISON: None FINDINGS: 2 views of the hip (frontal view of the right hip and frogleg view of the right hip) were obtained. Minimal degenerative changes anterior superior aspect of the acetabulum. No areas of acute bony injuries were demonstrated. No gross soft tissue abnormality is identified. There are no june ss intraosseous lesions. No periosteal reaction were seen. Minimal early vascular calcification r ight femoral vessels. IMPRESSION: Minimal degenerative changes. No evidence for acute bony injuries Electronically signed by: Bandar Box MD 04/27/2022 12:07 AM CDT Due to temporary technical issues with the PACS/Fluency reporting system, reports are being signed by the in house radiologists without review as a courtesy to insure prompt reporting. The interpreting radiologist is fully responsible for the content of the report.
--- NOTE | 2022-04-27 13:55 | RAD REPORT ---
EXAM DESCRIPTION: RAD - Chest Single View - 04/26/2022 11:55 pm CLINICAL HISTORY: 51 years, Female, COUGH COMPARISON: None. FINDINGS: Single view of the chest was obtained portable. No prior films are available for compariso n. The cardiomediastinal silhouette demonstrate to be unremarkable. The heart is not enlarged. The thoracic aorta is unremarkable. Costophrenic angles are sharp. No areas of consolidation or masses are seen. The rest of the soft tissue and bony structures demonstrate to be unremarkable. IMPRESSION: NO ACUTE CARDIOPULMONARY DISEASE SEEN. Electronically signed by: Bandar Box MD 04/27/2022 12:05 AM CDT Due to temporary technical issues with the PACS/Fluency reporting system, reports are being signed by the in house radiologists without review as a courtesy to insure prompt reporting. The interpreting radiologist is fully responsible for the content of the report.
--- NOTE | 2022-04-27 15:25 | RAD REPORT ---
EXAM DESCRIPTION: RAD - Pelvis - 04/26/2022 11:55 pm CLINICAL HISTORY: 51 years, Female, ABD PAIN COMPARISON: None FINDINGS: 1 single frontal view of the pelvis was obtained. Then pelvic brim is intact. Bilateral hi p joints demonstrate to be within normal limits. No areas of acute bony injuries were demonstrated. No gross soft tissue abnormality is identified. There are no gross intraosseous lesions. No yamile osteal reaction were seen. Fecal fecal residue within the visualized portions of the large bowel kent ggests constipation. Visualized portions of the sacrum and lower lumbar spine demonstrate to be withi n normal limits. Minimal early vascular calcification femoral vessels. IMPRESSION: No acute bony injuries were demonstrated. Probable constipation. Electronically signed by: Bandar Box MD 04/27/2022 12:06 AM CDT Due to temporary technical issues with the PACS/Fluency reporting system, reports are being signed by the in house radiologists without review as a courtesy to insure prompt reporting. The interpreting radiologist is fully responsible for the content of the report.
== END 2022-04-27 04:32 | disposition home or self-care (01) ==
LOC: ER 22:23
DX: N39.0 Urinary tract infection, site not specified (principal); D27.0 Benign neoplasm of right ovary; M25.551 Pain in right hip; I10 Essential (primary) hypertension; E11.9 Type 2 diabetes mellitus without complications; Z79.4 Long term (current) use of insulin; F17.210 Nicotine dependence, cigarettes, uncomplicated; Z85.43 Personal history of malignant neoplasm of ovary; Z85.42 Personal history of malignant neoplasm of other parts of uterus; Z85.89 Personal history of malignant neoplasm of other organs and systems; Z95.828 Presence of other vascular implants and grafts; Z88.5 Allergy status to narcotic agent
CPT/HCPCS: 93005; 87088; 85025; 87086; 80048; 36415; 83735; 85610; 80076; 81003; 84484; 83880; 74177; 71045; 72170; 73502; 76830; 87811; Q9967; J2550; J1170 ×3; J7040; J2405

== ENCOUNTER 2022-05-18 21:54 | Inpatient (IN) | payer BC ==
--- OUTSIDE RECORDS SUMMARY | 2022-05-18 22:04 | XMS REPORT | Continuity of Care Document ---
:1970 Author Organization [facility] t Address [address] [place] [address] Care Team Providers Name Role Phone None, None Primary Care Physician Unavailable DOMENICA RYAN Attending Clinician Unavailable TEODORO ROMERO Attending Clinician Unavailable [email or web address] Attending Clinician Unavailable [email or web address] Attending Clinician Unavailable POLLY WARREN Attending Clinician Unavailable ZOIE MUNSON Attending Clinician Unavailable JAMEL GROVE Attending Clinician Unavailable Polly Jasso Attending Clinician [phone] Clarissa Roberson MD Attending Clinician CLARISSA ROBERSON Attending Clinician Unavailable Jen Wagner MD Attending Clinician BLAYNE ROBBINS Attending Clinician Unavailable Anitra Murillo RN Attending Clinician Unavailable Blayne Robbins MD Attending Clinician Brayan Nassar Attending Clinician [phone] BRAYAN WATT Attending Clinician Unavailable GIBSON DAY Attending Clinician Unavailable LAVERNE BURGOS Attending Clinician Unavailable Mahesh ResidentMD, Gibson Attending Clinician + JEN WAGNER Attending Clinician Unavailable THALIA SUTTON Attending Clinician Unavailable Jessica Liriano Attending Clinician Unavailable Gonzalo ResidentMD, Anna S Attending Clinician + MARY BLEVINS Attending Clinician Unavailable Mary Blevins MD Attending Clinician Isidro ResidentMD, Thomas M Attending Clinician [phone] Yojana ResidentMD, Cammy K Attending Clinician + Shay HATCH, Gibson Attending Clinician Geeta [facility] Attending Clinician Unavailable Steve HATCH, Danielle Attending Clinician Sweetie Grimes MD Attending Clinician Deysi Salter NP Attending Clinician Dov HATCH, Jamari S Attending Clinician Lalo HATCH, Shade Attending Clinician + Radha Ambrosio MD Attending Clinician Thalia Meehan Attending Clinician Elijah Lewis LVN Attending Clinician Unavailable Yodit Keith Attending Clinician + SWEETIE GRIMES Attending Clinician Unavailable Pricilla Chong RN Attending Clinician Unavailable DEYSI SALTER Attending Clinician Unavailable Arni Ramirez RN Attending Clinician Unavailable Radha Magaña DO Attending Clinician JUVENTINO LAGOS Attending Clinician Unavailable QING DAWSNO Attending Clinician Unavailable Joie HATCH, Argenis T Attending Clinician Sammie Juan Attending Clinician [phone] Alexandra Nagel Attending Clinician [phone] Juany Mcwilliams Attending Clinician Unavailable Kiarra Silva Attending Clinician Unavailable ANDREA NAVARRETE Attending Clinician Unavailable MALIK MEDINA Attending Clinician Unavailable Status, Fax Attending Clinician Unavailable Clarissa Maldonado Attending Clinician [phone] Re Owen Attending Clinician Unavailable Mallory Esparza Attending Clinician UnavailTiffany Enriquez Attending Clinician Unavailable Caren Beck Attending Clinician Unavailable Hoa Duong Attending Clinician [phone] Ragini Toro Attending Clinician Unavailable Lou MedAdhermaile,, Re Attending Clinician Unavailable Radha Tom Attending Clinician Unavailable Casandra Kwan Attending Clinician Unavailable Napoleon Ramirez Attending Clinician Unavailable Ailyn Zavala Attending Clinician [phone] Jane Lerner Attending Clinician Unavailable Krystina Morrow Attending Clinician Unavailable Reece King Attending Clinician Unavailable Kiarra Aguirre Attending Clinician Unavailable Timmy Cohen Attending Clinician Unavailable Lay Tom Attending Clinician Unavailable Kate Owen Attending Clinician [phone] Shikha Felton Attending Clinician Unavailable Alexandria Palma Attending Clinician Unavailable Aura Perry Attending Clinician Unavailable Sabrina Boateng Attending Clinician Unavailable Enmanuel Jordan Attending Clinician Unavailable Sammie Juan Unavailable [phone] Hoa Duong Unavailable [phone] Clarissa Maldonado Unavailable [phone] Kate Owen Unavailable [phone] Payers Payer Name Policy Type Policy Number Effective Date Expiration Date S [facility] BLUE ADVANTAGE [id number] 2021 HMO/PLUS OON 00:00:00 EXCEPT [facility] BC[facility] P [id number] 2020 2020 00:00:00 00:00:00 [place] P [id number] 2017 00:00:00 BCBS O [id number] 2021 00:00:00 [facility] CI [id number] 2018 2018 [facility] [id number] 2017 2017 [facility] 00:00:00 00:00:00 [facility] [id number] 2017 2017 [facility] 00:00:00 00:00:00 Community [facility] Problems Condition Condition Condition Status Onset Resolution Last Treating Co mments Source Name Details Category Date Date Treatment Clinician Date Gynecologi Gynecologi Disease Active H [facility] c cancer c cancer 04-23 Health 00:00: 00 Endometria Endometria Disease Active [facility] l cancer l cancer 04-23 Health 00:00: 00 Dermatitis Condition Active 2019-082020-07-02 K[facility] 09-01 15:40:37 Darius Pitt 00:00: Sammie ty 00 Health BMI Condition Active 2019-082020-07-02 Kiko [facility] 29.0-29.9 09-01 15:40:37 Marita Pittu ni 00:00: Sammie ty 00 Health Post-traum Post-traum Disease Active Overview : [facility] atic atic 12-03 [facility] stress stress 00:00: g of this disorder, disorder, 00 note unspecifie unspecifie might be d d different from the original. [place] 1 Priority 2 Essential Essential Disease Active Overview: [facility] (primary) (primary) 12-03 [facility] hypertensi hypertensi 00:00: g of this on on note might be different from the original. [place] 3 Priority 1 [place] V [place] V Disease Active Overview: [facility] diagnosis diagnosis 12-03 [facility] 00:00: g of this note might be different from the original. GAF Score:45 Major Major Disease Active Overview: [facility] depressive depressive 12-02 [facility] disorder, disorder, 00:00: g of this recurrent, recurrent, 00 note unspecifie unspecifie might be d d different from the original. [place] 1 Priority 1 Unavailabi Unavailabi Disease Active Overview : [facility] lity and lity and 12-02 [facility]a lth inaccessib inaccessib 00:00: g of this ility of ility of note health-car health-car might be e e different facilities facilities from the original. [place] 4 Priority 1 Occupation Occupation Disease Active Overview : [facility] al problem al problem 12-02 [facility] 00:00: g of this note might be different from the original. [place] 4 Priority 2 Problem Problem Disease Active Overview: Joe is related to related to 12-02 [facility] primary primary 00:00: g of this support support 00 note group group might be different from the original. [place] 4 Priority 3 Economic Economic Disease Active Overview: [facility] problem problem 12-02 [facility]alt h 00:00: g of this 00 note might be different from the original. [place] 4 Priority 4 Nausea and Condition Active 2017-082018-08-14 Dewayne Duong vomiting 2- 11:28:03 [facility] i 00:00: ty 00 Health Cough, Condition Active 2017-10-28 Dewayne Maldonado chronic 3- 08:49:22 Clarissa Commun i 00:00: ty 00 Health Hoarseness Condition Active 2017-10-28 Dewayne Maldonado 3- 08:49:22 [facility] Communi 00:00: ty 00 Health [...] Diabetic Condition Active 2015-082016-08-14 Dewayne Maldonado peripheral 2-17 10:45:02 Clarissa Com samantha neuropathy 00:00: ty 00 Health Depression Condition Active 2015-082016-08-14 Dewayne Maldonado 2-17 10:45:02 [facility] Communi 00:00: ty 00 Health Arthralgia Condition Active 2015-082016-08-14 Dewayne Maldonado 0- 10:19:04 [facility] Communi 00:00: ty 00 Health Immunizati Condition Active 2015-082016-06-16 Dewayne Maldonado on update 09:12:09 [facility] Comm uni 00:00: ty 00 Health Hyperlipid Condition Active 2015-082016-06-16 Dewayne Maldonado emia 0- 09:12:09 [facility] Communi 00:00: ty 00 Health Diabetes Condition Active 2015-082016-06-16 Joel [facility] mellitus, 0- 09:12:09 Clarissa Comm uni type II 00:00: ty 00 Health Tobacco Condition Active 2015-082016-06-16 Joel, 1 PPD [facility] user 0- 09:12:09 Clarissa since 16 Commu ni 00:00: yrs ty 00 Health Obesity Condition Active 2015-082016-06-16 [facility] 0 09:12:09 [facility] Communi 00:00: ty 00 Health Cervical Cervical Disease Active 2014-08 April lopes cancer cancer 0-06 Health screening screening 00:00: 00 Tobacco Tobacco Disease Active [facility] use use 8 Health disorder disorder 00:00: 00 Tobacco Tobacco Disease Active [facility] abuse abuse 8 Health counseling counseling 00:00: 00 Overweight Overweight Disease Active H arris 8 Health 00:00: 00 Exercise Exercise Disease Active April s counseling counseling 805 He alth 00:00: 00 Diabetes Diabetes Disease Active April s mellitus mellitus 5 Health type 2 type 2 00:00: with with 00 complicati complicati ons ons Ingrown Ingrown Disease Active [facility] right big right big 5 Heal toenail toenail 00:00: 00 UTI (Lower UTI (Lower Disease Active [facility] Urinary Urinary 5-15 Health Tract Tract 00:00: Infection) Infection) 00 Shingles Shingles Disease Active April s 4- Health 00:00: 00 Yeast Yeast Disease Active 2013-08 [facility] infection infection 1-26 Heal th 00:00: 00 left left Disease [...] malar left malar RUQ RUQ Disease Active [place] abdominal abdominal 7 Heal th tenderness tenderness 00:00: 00 DM DM Disease Active [place] neuropathi neuropathi 7 He alth es es 00:00: 00 Diabetic Diabetic Disease Active April s neuropathy neuropathy 04-26 He alth , painful , painful 00:00: arm and arm and 00 feet feet Allergic Allergic Disease Active April s rhinitis rhinitis 04-26 Health 00:00: 00 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 hyperchole 5-23 He alth sterolemia sterolemia 00:00: and and 00 hypertrigl hypertrigl yceridemia yceridemia GERD GERD Disease Active [facility] (gastroeso (gastroeso 2 He alth phageal phageal 00:00: reflux reflux 00 disease) disease) Major Major Disease Active [place] depression depression 1-17 He alth , , 00:00: recurrent recurrent 00 Homeless Homeless Disease Active 2011-08 [employer] s 10-02 Health 00:00: 00 Mild HTN Mild HTN Disease Active 2011-08 [facility] s 10-02 Health 00:00: 00 Depression Depression Disease Active 2011-08 H arris 04 Health 00:00: 00 Positive Positive Disease Active 2011-08 [facility] s PPD, PPD, 10-02 Health treated treated 00:00: 00 Rash Rash Disease Active [facility] Visual Visual Disease Active [place] disturbanc disturbanc He alth e e History [...] adverse 00:00: reaction 00 s to drug CODEINE Drug Active High 2015-08 [facility] allergy Criticali 0-19 Commun i (disorde ty 00:00: ty r) 00 Health Codeine Allergy Active 2015-08 [place] to 0-19 Health substanc 00:00: e 00 Lamotrig Propensi Active 2013-08 rash [facility] ine ty to 16 Health adverse 00:00: reaction 00 s to drug Family History Family Member Diagnosis Comments Start Date Stop Date Source Natural father Cancer [facility] Natural mother Cancer [facility] Paternal grandmother Cancer [facility] is Health Social History Social Habit Start Date Stop Date Quantity Comments Source History of tobacco Cigarette Smoker [facility] use Exposure to 2022-05-08 2022-05-18 Not sure [facility] SARS-CoV-2 (event) 00:00:00 10:53:00 Alcohol intake 2022-05-18 2022-05-18 [facility]00 of alcohol (finding) History [facility] Food 2022-04-29 2022-04-29 1 [facility] Worry 00:00:00 00:00:00 History [facility] Food 2022-04-29 2022-04-29 1 [place] [facility] Scarcity 00:00:00 00:00:00 History SDOH 2022-03-18 2022-03-[address] [facility] 00:00:00 00:00:00 History SDOH 2022-03-18 2022-03-[address] [facility] Std Drinks 00:00:00 00:00:00 History SDOH 2022-03-18 2022-03-[address] [facility] Binge 00:00:00 00:00:00 History SDOH 2022-03-18 2022-03-[address] [facility] Social Connections 00:00:00 00:00:00 Phone History SDOH 2022-03-18 2022-03-[address] [facility] 00:00:00 00:00:00 Get Together History SDOH 2022-03-18 2022-03-[address] [facility] 00:00:00 00:00:00 Yazdanism History SDOH 2022-03-18 2022-03-[address] [facility] 00:00:00 00:00:00 Membership History [...] 00:00:00 00:00:00 History SDOH 2022-03-18 2022-03-18 2 [facility] Transport Med 00:00:00 00:00:00 History SDOH 2022-03-18 2022-03-18 2 [facility] 00:00:00 00:00:00 History SDOH 2022-03-18 2022-03-18 2 [facility] Housing Unable to 00:00:00 00:00:00 Pay History SDOH 2022-03-18 2022-03-18 1 [facility] Housing Places 00:00:00 00:00:00 Lived History SDOH 2022-03-18 2022-03-18 2 [facility] Homeless 00:00:00 00:00:00 Last Year Cigarettes smoked 2022-01-19 2022-01-19 [facility] current (pack per 00:00:00 00:00:00 day) - Reported Cigarette 2022-01-19 2022-01-19 [facility] pack-years 00:00:00 00:00:00 Tobacco use and 2022-01-19 2022-01-19 Smokeless tobacco [facility] exposure 00:00:00 00:00:00 non-user drug use, illicit 2020-07-02 2020-07-02 Previously [facility] 15:12:44 15:12:44 Health alcohol use 2020-07-02 2020-07-02 Never [facility] 15:12:44 15:12:44 Health social history E&M 2020-07-02 2020-07-02 Single. Born in [facility] 15:12:44 15:12:44 [facility]. City: [facility]. State: [place]. Employed full-time. [employer]. Sex at : Female. Sexual orientation: Heterosexual. Gender identity: Female. Gender of partner(s): Male. Age of first sexual intercourse: 16. Sexually Active: Yes. sexual orientation 2020-07-02 2020-07-02 Heterosexual [facility] 15:12:44 15:12:44 Health social history 2020-07-02 2020-07-02 reviewed today [facility] reviewed E&M 15:12:44 15:12:44 Health is there any 2020-07-02 2020-07-02 No [facility] nity chance that you 15:12:44 15:12:44 Health could be ? tobacco use 2020-07-02 2020-07-02 [facility] 15:12:44 15:12:44 Health cigar, chew, pipe) if the patient is 2020-07-02 2020-07-02 No [facility] using/has used a 15:12:44 15:12:44 Health vaping item, Current, Former, Never Used, Not asked time of call 2020-06-23 2020-06-23 06/23/2020 10:27 AM Leg [facility] Community 10:27:41 10:27:41 Health sex at 2016-06-16 2016-06-16 Female [facility] 08:28:26 08:28:26 Health Occupation #1 2016-06-16 2016-06-16 [employer] [facility] unity 08:28:26 08:28:26 Health Tobacco Comment 2015-03-04 2015-03-04 began smoking [facility] 00:00:00 00:00:00 cessation on 02/13/15 @ History SDOH 2012-08-10 2012-08-10 recovery 2000 [place] Swapnil dixon Alcohol Comment 00:00:00 00:00:00 Sex [birth year] At [birth year] [place] Swapnil alth 00:00:00 00:00:00 Smoking Status Start Date Stop Date Source Smokes tobacco daily 2022-01-19 00:00:00 [facility] Medications Ordered Filled Start Stop Current Ordering Indication Dosage Frequency Signature Comments Components Source Medication Medication Date Date Medication? Clinician (SIG) Name Name furosemide Yes Mild HTN 20mg Q.5D Take 1 H arris (LASIX) 20 9-20 tablet by Heal th mg tablet 00:00: mouth 2 00 times daily polyethylen Yes Cancer Mix 1 Alberto ris e glycol 9-20 associated packet (17 Health 3350 00:00: pain grams) (GLYCOLAX) 00 into 4 to 17 gram 8 ounces oral powder of water, packet juice, soda, tea or coffee and drink once daily as directed omeprazole Yes Gastroesoph 20mg QD Take 1 [facility] (PRILOSEC) 9-20 ageal capsule by alth 20 mg 00:00: reflux mouth delayed 00 disease, daily release unspecified capsule whether esophagitis present tropicamide 2022- Yes Diabetes 1[drp] Administer [facility] (MYDRIACYL) 05-18 03-19 mellitus 1 Drop in Health 0.5 % 00:00: 23:59 type 2 with each eye ophthalmic 00 :00 complicatio once as solution ns needed for up to 1 dose (for poor retina scan image) tropicamide 2022- Yes Encounter 1[drp] Administer [facility] (MYDRIACYL) 05-05 03-06 for 1 Drop in He alth 0.5 % 00:00: 23:59 diabetes each eye ophthalmic 00 :00 type 2 eye once as solution exam needed for up to 1 dose (for poor retina scan image) lisinopriL Yes Mild HTN 10mg QD Take 1 H arris (PRINIVIL) 9- tablet by Heal th 10 mg 00:00: mouth tablet 00 daily gabapentin Yes Neuropathy 600mg Take 1 [facility] (NEURONTIN) 04-29 tablet by a lt 600 mg 00:00: mouth 3 tablet 00 times daily morphine ER Yes Cancer 15mg Q.5D Take 1 Alon[facility] rris (MS CONTIN) 04-29 associated tablet by Health 15 mg 00:00: pain mouth 2 extended 00 times release daily tablet naloxone Yes Cancer Give 1 Harri s (NARCAN) 4 04-29 associated dose of Health mg/actuatio 00:00: pain naloxone n nasal 00 in either spray nostril at first sign of opioid overdose and then immediatel y seek emergency medical assistance . If patient unresponsi ve and or breathing abnormally 2-3 minutes after 1st dose, give 2nd dose in other nostril HYDROcodone Yes Cancer 1{tbl} Take 1 Malik -acetaminop 04-29 associated tablet by [facility] hen (NORCO) 00:00: pain mouth 10-325 mg 00 every 8 tablet hours as needed for Pain nicotine 2021- No 2mg Place 2 mg [facility] polacrilex 04-23 inside Health (NICORELIEF 22:23: 00:00 cheek ) 2 mg Gum 05 :00 every 2 hours. nicotine 2021- No [address]mg Place 2 mg Al[facility] r[facility] polacrilex 04-23 inside [facility] (NICORELIEF 22:23: 00:00 cheek ) 2 mg Gum 05 :00 every 2 hours. FLUoxetine 2021- No Moderate 40mg Take 40 mg [facility] (PROZAC) 40 04-23 episode of by mouth Health mg capsule 11:50: 00:00 recurrent 15 :00 major depressive disorder FLUoxetine 2021- No Moderate 40mg Take 40 mg [facility] (PROZAC) 40 04-23 episode of by mouth Health mg capsule 11:50: 00:00 recurrent 15 :00 major depressive disorder insulin NPH 2021- No Uncontrolle Inject [facility] (HUMULIN N 04-23 d type 2 under the Health NPH U-100 10:50: 00:00 diabetes skin INSULIN) 55 :00 mellitus 100 unit/mL with injection hyperglycem ia insulin NPH 2021- No Uncontrolle Inject [facility] (HUMULIN N 04-23 d type 2 under the Health NPH U-100 10:50: 00:00 diabetes skin INSULIN) 55 :00 mellitus 100 unit/mL with injection hyperglycem ia insulin Yes Diabetes Sliding Alberto ris lispro [...] (GLUCOPHAGE 04-23 d type 2 tablet by [facility] ) 850 mg 00:00: diabetes mouth 2 tablet 00 mellitus times with daily with hyperglycem meals ia metoprolol Yes Primary 25mg QD Take 1 Al[facility] r[facility] succinate 04-23 hypertensio tablet by [facility] (TOPROL XL) 00:00: n mouth 25 mg 00 daily extended release tablet blood Yes Diabetes Use as Malik glucose 04-23 mellitus directed [place] meter kit 00:00: without to check 00 complicatio blood n glucose blood Yes Diabetes 1{each} Use 4 Joe is glucose 04-23 mellitus times [facility] test strips 00:00: without daily . 00 complicatio n lancets 28 0 Yes Diabetes 1{each} Use 4 [facility] gauge 04-23 mellitus times Health 00:00: without daily . 00 complicatio n atorvastati Yes Diabetes 80mg Take 2 [facility]ik n (LIPITOR) 04-23 mellitus tablets by [facility] 40 mg 00:00: without mouth at tablet 00 complicatio bedtime n nightly insulin Yes Uncontrolle 80U Q.5D Inject 80 [facility] detemir 04-23 d type 2 Units Health U-100 00:00: diabetes under the (LEVEMIR 00 mellitus skin 2 U-100 with times INSULIN) hyperglycem daily 100 unit/mL ia injection lidocaine Yes sciatica 1{patch QD Apply 1 [facility] (LIDODERM) 04-23 } Patch to Healt h 5 % patch 00:00: skin as 00 directed daily Leave patch(es) on for up to 12 hours, then 12 hours off. budesonide- 2022-0 Yes Reactive 2{puff} Q.5D Inhale 2 [facility] formoteroL 04-23 airway puff by [facility] th (SYMBICORT) 00:00: disease, mouth 2 80-4.5 00 mild time a mcg/actuati intermitten day. Rinse on inhaler t, mouth uncomplicat after each ed use. albuterol Yes Reactive 2{puff} Inhale 2 Malik 90 04-23 airway Puffs by [facility] mcg/actuati 00:00: disease, mouth 4 on inhaler 00 mild times intermitten daily as t, needed for uncomplicat Wheezing ed nitroGLYCER Yes Ischemic Dissolve 1 Mal[facility] IN 04-23 heart tablet [facility] (NITROSTAT) 00:00: disease under the 0.4 mg 00 tongue sublingual every 5 tablet minutes as needed, up to 3 times. If chest pain persists, call 911 ondansetron Yes Endometrial 8mg Take 1 [place] (ZOFRAN) 8 04-23 cancer tablet by alth mg tablet 00:00: mouth 00 every 8 hours on Day 2 - 4, then every 8 hours as needed for nausea/vom iting INSULIN Yes Diabetes Q.5D Use to [facility] is SYRINGE 0.5 04-23 mellitus inject He alth mL 00:00: without medication 30GX5/16" 00 complicatio 2 times syringe-nee n daily. Use dle a new syringe each time. gabapentin Yes Neuropathy 400mg Take 1 [place] (NEURONTIN) 04-23 capsule by alth 400 mg [...] (GLUCOPHAGE 04-23 d type 2 tablet by [facility] ) 850 mg 00:00: diabetes mouth 2 tablet 00 mellitus times with daily with hyperglycem meals ia metoprolol Yes Primary 25mg QD Take 1 Alonzo rris succinate 04-23 hypertensio tablet by [facility] (TOPROL XL) 00:00: n mouth 25 mg 00 daily extended release tablet blood Yes Diabetes Use as Mal[facility] glucose 04-23 mellitus directed [place] meter kit 00:00: without to check 00 complicatio blood n glucose blood Yes Diabetes 1{each} Use 4 Joe is glucose 04-23 mellitus times [facility] test strips 00:00: without daily . 00 complicatio n lancets 28 Yes Diabetes 1{each} Use 4 [facility]ik gauge 04-23 mellitus times Health 00:00: without daily . 00 complicatio n atorvastati Yes Diabetes 80mg Take 2 [facility]ik n (LIPITOR) 04-23 mellitus tablets by [facility] 40 mg 00:00: without mouth at tablet 00 complicatio bedtime n nightly insulin Yes Uncontrolle 80U Q.5D Inject 80 [facility] detemir 04-23 d type 2 Units [facility] U-100 00:00: diabetes under the (LEVEMIR 00 mellitus skin 2 U-100 with times INSULIN) hyperglycem daily 100 unit/mL ia injection lidocaine Yes sciatica 1{patch QD Apply 1 [facility] (LIDODERM) 04-23 } [facility] patch 00:00: skin as 00 directed daily Leave patch(es) on for up to 12 hours, then 12 hours off. budesonide- Yes Reactive 2{puff} Q.5D Inhale 2 [facility] formoteroL 04-23 airway puff by [place] (SYMBICORT) 00:00: disease, mouth 2 80-4.5 00 mild time a mcg/actuati intermitten day. Rinse on inhaler t, mouth uncomplicat after each ed use. albuterol Yes Reactive 2{puff} Inhale 2 Malik 90 -26 airway Puffs by [facility] mcg/actuati 00:00: disease, mouth 4 on inhaler 00 mild times intermitten daily as t, needed for uncomplicat Wheezing ed nitroGLYCER Yes Ischemic Dissolve 1 [facility] IN 04-23 heart tablet [facility] (NITROSTAT) 00:00: disease under the 0.4 mg 00 tongue sublingual every 5 tablet minutes as needed, up to 3 times. If chest pain persists, call 911 HYDROcodone Yes Ovarian 1{tbl} Take 1 [facility] -acetaminop 04-23 mass tablet by Francois harperh tiffanie ([email or web address]) 00:00: mouth 5-325 mg 00 every 6 tablet hours as needed for Pain (severe pain) ondansetron Yes Endometrial 8mg Take 1 [facility] (ZOFRAN) 8 04-23 cancer tablet by He alth mg tablet 00:00: mouth 00 every 8 hours on Day 2 - 4, then every 8 hours as needed for nausea/vom iting traMADoL Yes Cancer 50mg Take 1 Harri s (ULTRAM) 50 04-23 associated tablet by Health mg tablet 00:00: pain mouth 00 every 6 hours as needed for Pain INSULIN Yes Diabetes Q.5D Use to Joe is SYRINGE 0.5 04-23 mellitus inject He alth mL 00:00: without medication 30GX5/16" 00 complicatio 2 times syringe-nee n daily. Use dle a new syringe each time. gabapentin 2021- No Neuropathy 400mg Take 1 [facility] (NEURONTIN) 04-23 capsule by Fabricio gusman 400 mg 00:00: 00:00 mouth 3 capsule 00 :00 times daily HYDROcodone 2021- No Ovarian 1{tbl} Take 1 [facility] -acetaminop 04-23 mass tablet by Sw[facility] alth hen ([email or web address]) 00:00: 00:00 mouth 5-325 mg 00 :00 every 6 tablet hours as needed for Pain (severe pain) traMADoL 2021-0 2021- No Cancer 50mg Take 1 Joe is (ULTRAM) 50 04-23 associated tablet by Health mg tablet 00:00: 00:00 pain mouth 00 :00 every 6 hours as needed for Pain lidocaine 2021- No sciatica 1{patch QD Apply 1 Malik (LIDODERM) 04-23 } Patch to Heal th 5 % patch 00:00: 00:00 skin as 00 :00 directed daily Leave patch(es) on for up to 12 hours, then 12 hours off. insulin 2021- No Uncontrolle 80U Q.5D Inject 80 Malik detemir 04-23 d type 2 Units Health U-100 00:00: 00:00 diabetes under the (LEVEMIR 00 :00 mellitus skin 2 U-100 with times INSULIN) hyperglycem daily 100 unit/mL ia injection ondansetron 2021- No Endometrial 8mg Take 1 King (ZOFRAN) 8 04-23 cancer tablet by H ealth mg tablet 00:00: 00:00 mouth 00 :00 every 8 hours on Day 2 - 4, then every 8 hours as needed for nausea/vom iting lidocaine 2021- No sciatica 1{patch QD Apply 1 King (LIDODERM) 04-23 } Patch to Heal th 5 % patch 00:00: 00:00 skin as 00 :00 directed daily Leave patch(es) on for up to 12 hours, then 12 hours off. insulin 2021- No Uncontrolle 80U Q.5D Inject 80 King detemir 04-23 d type 2 Units Health U-100 00:00: [...] Dissolve 1 King IN 04-14 heart tablet [facility] (NITROSTAT) 00:00: 00:00 disease under the [...] albuterol 2021- No Reactive 2{puff} Inhale 2 [place] 90 04-14 airway Puffs by [facility] mcg/actuati 00:00: 00:00 disease, mouth 4 on inhaler 00 :00 mild times intermitten daily as t, needed for uncomplicat Wheezing ed nitroGLYCER 2021- No Ischemic Dissolve 1 King IN 04-14 heart tablet [employer] (NITROSTAT) 00:00: 00:00 disease under the 0.4 mg 00 :00 tongue sublingual every 5 tablet minutes as needed, up to 3 times. If chest pain persists, call 911 budesonide- 2021- No Reactive 2{puff} Q.5D Inhale 2 [place] formoteroL 04-14 airway Puffs by alth (SYMBICORT) 00:00: 00:00 disease, mouth 2 80-4.5 00 :00 mild times mcg/actuati intermitten daily on inhaler t, Inhale 2 uncomplicat puff by ed mouth 2 time a day. Rinse mouth after each use. albuterol 2021- No Reactive 2{puff} Inhale 2 [place] 90 04-14 airway Puffs by [facility] mcg/actuati 00:00: 00:00 disease, mouth 4 on inhaler 00 :00 mild times intermitten daily as t, needed for uncomplicat Wheezing ed albuterol 2021- No Reactive 2{puff} Inhale 2 [place] 90 04-14 airway Puffs by [employer] mcg/actuati 00:00: 00:00 disease, mouth 4 on inhaler 00 :00 mild times intermitten daily as t, needed for uncomplicat Wheezing ed albuterol 2021- No Reactive 2{puff} Inhale 2 [place] [id number] 04-14 airway Puffs by [employer] mcg/actuati 00:00: 00:00 disease, mouth 4 on inhaler 00 :00 mild times intermitten daily as t, needed for uncomplicat Wheezing ed tropicamide 2022- Yes Encounter 1[drp] Administer King (MYDRIACYL) 04-13 for 1 Drop in alth 0.5 % 00:00: 23:59 diabetes each eye ophthalmic 00 :00 type 2 eye once as solution exam needed for up to 1 dose (for poor retina scan image) tropicamide 2022- Yes Encounter 1[drp] Administer King [...] NITRATE) 75-25 % topical applicator 1 Stick ferric 2021- No Thickened 1{vial} Alonzo rris subsulfate 04-09 endometrium H ealth (MONSEL'S) 13:45: 01:44 1.04 g/mL 00 :00 topical paste 1 Vial silver 2021- No Thickened 1{stick Alonzo rris nitrate 04-09 endometrium } [place] applicators 13:45: 01:44 (SILVER 00 :00 NITRATE) 75-25 % topical applicator 1 Stick gabapentin 2021- No Neuropathy 400mg Q.5D Take 1 Malik (NEURONTIN) 03-18 capsule by H ealth 400 mg 00:00: 00:00 mouth 2 capsule 00 :00 (two) times a day HYDROcodone 2021-0 2021- No Acute 1{tbl} Take 1 Malik -acetaminop 03-18- pelvic pain tablet by [employer] ([email or web address]) 00:00: 12:07 mouth 5-325 mg 00 :26 every 8 tablet hours as needed for Pain gabapentin 2021-0 2021- No Neuropathy 400mg Q.5D Take 1 Malik (NEURONTIN) 03-18- capsule by H ealth 400 mg 00:00: 00:00 mouth 2 capsule 00 :00 (two) times a day HYDROcodone 2021-0 2021- No Acute 1{tbl} Take 1 Malik -acetaminop 03-18- pelvic pain tablet by [employer]) 00:00: 12:07 mouth 5-325 mg 00 :26 every 8 tablet hours as needed for Pain insulin 2022-0 2022- No Diabetes Sliding Alonzo rris lispro 03-15 mellitus scale if Heal th (HUMALOG 00:00: 00:00 without glucose U-100 00 :00 complicatio 201-250 INSULIN) n inject 3 100 unit/mL Units injection under the skin; If 251-300 inject 6 Units; If 301-350 inject 9 Units. Check blood sugar 30 minutes before meals. insulin 2021- No Diabetes Sliding Alonzo rris lispro 03-15 mellitus scale if Heal th (HUMALOG 00:00: 00:00 without glucose U-100 00 :00 complicatio 201-250 INSULIN) n inject 3 100 unit/mL Units injection under the skin; If 251-300 inject 6 Units; If 301-350 inject 9 Units. Check blood sugar 30 minutes before meals. lidocaine 2021- No sciatica 1{patch QD Apply 1 Malik (LIDODERM) 03-04 } Patch to Heal th 5 % patch 00:00: 00:00 skin as 00 :00 directed daily Leave patch(es) on for up to 12 hours, then 12 hours off. lidocaine 2021- No sciatica 1{patch QD Apply 1 Malik (LIDODERM) 03-04 } Patch to Heal th 5 % patch 00:00: 00:00 skin as 00 :00 directed daily Leave patch(es) on for up to 12 hours, then 12 hours off. traMADoL 2021- No Pelvic pain 50mg Take 1 Malik (ULTRAM) 50 03-0417 in female tablet by Health mg tablet 00:00: 00:00 mouth 00 :00 every 6 hours as needed for Pain traMADoL 2021- No Pelvic pain 50mg Take 1 Malik (ULTRAM) 50 03-04-17 in female tablet by Health mg tablet 00:00: 00:00 mouth 00 :00 every 6 hours as needed for Pain FLUoxetine Yes Medication 60mg QD Take 3 Malik (PROZAC) 20 02-26 refill capsules He alth mg capsule 00:00: by mouth 00 daily. FLUoxetine Yes Medication 60mg QD Take 3 Malik (PROZAC) 20 02-26 refill capsules He alth mg capsule 00:00: by mouth 00 daily. insulin 0 2021- No Diabetes Sliding Alonzo rris lispro 02-16 mellitus scale If Heal th (HUMALOG 00:00: 00:00 without glucose U-100 00 :00 complicatio >200<250 INSULIN) n inject 3 100 unit/mL Units If injection >250<300 inject 6 Units If >300<35 0 inject 9Units Check blood sugar 30 minutes before meals.. insulin 2021-0 2021- No Diabetes Sliding Alonzo rris lispro 02-16 mellitus scale If Heal th (HUMALOG 00:00: 00:00 without glucose U-100 00 :00 complicatio >200<250 INSULIN) n inject 3 100 unit/mL Units If injection >250<300 inject 6 Units If >300<35 0 inject 9Units Check blood sugar 30 minutes before meals.. insulin 0 Yes Inject [facility] NPH, 5-11 under the [employer], 11:52: skin 2 (HumuLIN 22 (two) N,NovoLIN times a N) 100 day before UNIT/ML meals. injection insulin 0 Yes Inject [facility] NPH, 5-11 under the [employer], 11:52: skin 2 (HumuLIN 22 (two) N,NovoLIN times a N) 100 day before UNIT/ML meals. injection insulin 0 Yes Inject [facility] NPH, -11 under the [employer], 11:52: skin 2 (HumuLIN 22 (two) N,NovoLIN times a N) 100 day before UNIT/ML meals. injection insulin 0 Yes Inject [facility] NPH, 5-11 under the [employer], 11:52: skin 2 (HumuLIN 22 (two) N,NovoLIN times a N) 100 day before UNIT/ML meals. injection metFORMIN 2021-0 Yes 850mg Take 850 UT (Glucophage 5-11 mg by [facility] ) 850 MG 11:44: mouth 2 tablet 59 (two) times a day with meals. furosemide 202-0 Yes 20mg QD Take 20 mg U T (Lasix) 20 5-11 by mouth 1 Hea lth MG tablet 11:44: (one) time 59 each day. gabapentin 2021-0 Yes 400mg Q.[id number] Take 400 UT (Neurontin) 5-11 [id number] mg by H ealth 400 MG 11:44: [...] 59 each day. gabapentin 2022-0 Yes 400mg Q.[id number] Take 400 UT (Neurontin) 5-11 [id number] mg by H ealth 400 MG 11:44: [...] 59 each day. gabapentin 2022-0 Yes 400mg Q.[id number] Take 400 UT (Neurontin) 5-11 [id number] mg by H ealth 400 MG 11:44: [...] time 59 each day. gabapentin Yes 400mg Q.[id number] Take 400 UT (Neurontin) 5-11 [id number] mg by H ealth 400 MG 11:44: 3D mouth 3 capsule 59 (three) times a day. FLUoxetine Yes 40mg QD Take 40 mg U T (PROzac) 40 5-11 by mouth 1 He alth MG capsule 11:44: (one) time 59 each day. metoprolol 2021- No 25mg QD Take 25 mg Malik tartrate 12-15 by mouth Health (LOPRESSOR) 00:00: 00:00 daily 25 mg 00 :00 tablet metoprolol 2021- No 25mg QD Take 25 mg Malik tartrate 12-15 by mouth Health (LOPRESSOR) 00:00: 00:00 daily 25 mg 00 :00 tablet furosemide Yes Coronary 20mg QD Take 1 H arris (LASIX) 20 4-04 artery tablet by He alth mg tablet 00:00: disease mouth 00 involving daily sun'aq heart without angina pectoris, unspecified vessel or lesion type furosemide Yes Coronary 20mg QD Take 1 H arris (LASIX) 20 4-04 artery tablet by He alth mg tablet 00:00: disease mouth 00 involving daily sun'aq heart without angina pectoris, unspecified vessel or lesion type metFORMIN 2021- No Uncontrolle 850mg Q.5D Take 1 Malik (GLUCOPHAGE 11-30- d type 2 tablet by [employer] ) 850 mg 00:00: 00:00 diabetes mouth 2 tablet 00 :00 mellitus times with daily hyperglycem (with ia meals) metoprolol 2021- No Primary 25mg QD Take 1 H arris succinate -12 04- hypertensio tablet by [employer] (TOPROL XL) 00:00: 00:00 n mouth 25 mg 00 :00 daily extended release tablet metFORMIN 2021- No Uncontrolle 850mg Q.5D Take 1 Malik (GLUCOPHAGE 11-30- d type 2 tablet by [employer] ) 850 mg 00:00: 00:00 diabetes mouth 2 tablet 00 :00 mellitus times with daily hyperglycem (with ia meals) metoprolol 2021- No Primary 25mg QD Take 1 H arris succinate 11-30 hypertensio tablet by [employer] (TOPROL XL) 00:00: 00:00 n mouth 25 mg 00 :00 daily extended release tablet gabapentin 2021- Neuropathy 400mg Q.5D Take 1 Malik (NEURONTIN) 11-30 capsule by H ealth 400 mg 00:00: 00:00 mouth 2 capsule 00 :00 (two) times a day gabapentin 2021- No Neuropathy 400mg Q.5D Take 1 Malik (NEURONTIN) 11-30 capsule by H ealth 400 mg 00:00: 00:00 mouth 2 capsule 00 :00 (two) times a day aspirin Yes Coronary 81mg QD Chew and Alonzo rris (ASPIRIN) 11-27 artery swallow 1 Hea lth 81 mg 00:00: disease tablet by chewable 00 involving mouth tablet sun'aq daily heart without angina pectoris, unspecified vessel or lesion type aspirin Yes Coronary 81mg QD Chew and Alonzo rris (ASPIRIN) 11-27 artery swallow 1 Hea lth 81 mg 00:00: disease tablet by chewable 00 involving mouth tablet sun'aq daily heart without angina pectoris, unspecified vessel or lesion type tropicamide 2021- No Uncontrolle 1[drp] Instill 1 King (MYDRIACYL) 11-27 d type 2 Drop in Health 0.5 % 00:00: 23:59 diabetes each eye ophthalmic 00 :00 mellitus once as solution with needed for hyperglycem up to 1 ia dose (for poor retina scan image) tropicamide 2021- No Uncontrolle 1[drp] Instill 1 King (MYDRIACYL) 11-27 d type 2 Drop in Health 0.5 % 00:00: 23:59 diabetes each eye ophthalmic 00 :00 mellitus once as solution with needed for hyperglycem up to 1 ia dose (for poor retina scan image) insulin 2021- No Uncontrolle 60U Q.5D Inject 60 Malik detemir 11-27 d type 2 Units Health U-100 00:00: 00:00 diabetes under the (LEVEMIR 00 :00 mellitus skin 2 U-100 with times INSULIN) hyperglycem daily 100 unit/mL ia injection insulin 2021- No Uncontrolle 60U Q.5D Inject 60 King detemir 11-27 08-26 d type 2 Units Health U-100 00:00: 00:00 diabetes under the (LEVEMIR 00 :00 mellitus skin 2 U-100 with times INSULIN) hyperglycem daily 100 unit/mL ia injection terconazole 2021- No Vaginal Insert 1 King (TERAZOL 7) 11-27 itching applicator Health 0.4 % 00:00: 23:59 ful vaginal 00 :00 vaginally cream every night at bedtime for 7 days. terconazole 2021- No Vaginal Insert 1 King (TERAZOL 7) 11-27 itching applicator Health 0.4 % 00:00: 23:59 ful vaginal 00 :00 vaginally cream every night at bedtime for 7 days. metFORMIN 2021- No Uncontrolle 850mg Q.5D Take 1 Malik (GLUCOPHAGE 11-27 d type 2 tablet by [facility] ) 850 mg 00:00: 00:00 diabetes mouth 2 tablet 00 :00 mellitus times with daily hyperglycem (with ia meals) gabapentin 2021- No Neuropathy 400mg Q.5D Take 1 Malik (NEURONTIN) 11-27 capsule by H ealth 400 mg 00:00: 00:00 mouth 2 capsule 00 :00 (two) times a day furosemide 2021- No Coronary 20mg QD Take 1 Malik (LASIX) 20 11-27 artery tablet by H ealth mg tablet 00:00: 00:00 disease mouth 00 :00 involving daily sun'aq heart without angina pectoris, unspecified vessel or lesion type metoprolol 2021- No Primary 25mg QD Take 1 H arris succinate 11-27 hypertensio tablet by [employer] (TOPROL XL) 00:00: 00:00 n mouth 25 mg 00 :00 daily extended release tablet metFORMIN 2021- No Uncontrolle 850mg Q.5D Take 1 Malik (GLUCOPHAGE 11-27 d type 2 tablet by [employer] ) 850 mg 00:00: 00:00 diabetes mouth 2 tablet 00 :00 mellitus times with daily hyperglycem (with ia meals) gabapentin 2021- No Neuropathy 400mg Q.5D Take 1 Malik (NEURONTIN) 11-27 capsule by H ealth 400 mg 00:00: 00:00 mouth 2 capsule 00 :00 (two) times a day furosemide Coronary 20mg QD Take 1 Malik (LASIX) 20 11-27 artery tablet by H ealth mg tablet 00:00: 00:00 disease mouth 00 :00 involving daily sun'aq heart without angina pectoris, unspecified vessel or lesion type metoprolol Primary 25mg QD Take 1 H arris succinate 11-27 hypertensio tablet by [employer] (TOPROL XL) 00:00: 00:00 n mouth 25 mg 00 :00 daily extended release tablet insulin Uncontrolle 10U Inject 10 [employer] REGULAR 100 11-27 d type 2 Units He alth unit/mL 00:00: 23:59 diabetes under the injection 00 :00 mellitus skin once with for 1 dose hyperglycem ia INSULIN Preventativ Use to Malik SYRINGE 1 11-27 e health inject Hea lth mL 00:00: 23:59 care medication 30GX5/16" 00 :00 once for 1 (TRUEPLUS dose. Use INSULIN 1ML a new 30GX5/16") syringe syringe-nee each time. dle insulin Uncontrolle 10U Inject 10 [employer] REGULAR 100 11-27 d type 2 Units He alth unit/mL 00:00: 23:59 diabetes under the injection 00 :00 mellitus skin once with for 1 dose hyperglycem ia INSULIN 2021- No Preventativ Use to Malik SYRINGE 1 11-27 e health inject Hea lth mL 00:00: 23:59 care medication 30GX5/16" 00 :00 once for 1 (TRUEPLUS dose. Use INSULIN 1ML a new 30GX5/16") syringe syringe-nee each time. dle (FLUOCINONI 2019-08 Sammie Apply [employer] [facility] [place]) 0.05 % 09-01 Kiko Pitt Twice a Communi CREA 00:00: 00:00 Day to ty 00 :00 affected Health areas for 10 days (HYDROXYZIN 2020-1 2020- No Sammie TAKE 1 TAB [facility] HCL) 50 1-04 11-11 Kiko Pitt By Mouth Communi MG TABS 00:00: 00:00 BID As ty 00 :00 Needed Health ITCHINESS acyclovir 2019-08 Yes Take 1 King (ZOVIRAX) 0-22 tablet(s) Healt h 800 mg 00:00: by mouth tablet 00 Twice a day for HSV suppressio n acyclovir 2019-08 Yes Take 1 King (ZOVIRAX) 0-22 tablet(s) Healt h 800 mg [...] ommuni CAPS 00:00: a day ty 00 Health mometasone 2015-08 Yes Seasonal 1{spray QD 1 [place] by King (NASONEX) 1-30 allergies } each Healt h 50 00:00: nostril mcg/actuati 00 route on nasal daily. spray mometasone 2015-08 Yes Seasonal 1{spray QD 1 [place] by [place] (NASONEX) 1-30 allergies } each Healt h 50 00:00: nostril mcg/actuati 00 route on nasal daily. spray azithromyci 2015-08- No Acute URI Take 2 Malik n 09-26- tablets by [facility] (ZITHROMAX) 00:00: 00:00 mouth on 250 mg 00 :00 the first tablet day, then take one tablet every day for the next 4 days. cetirizine 2015-08- No Acute URI 10mg QD Take 1 Malik (ZYRTEC) 10 09-26 tablet by alth mg tablet 00:00: 00:00 mouth 00 :00 daily. azithromyci 2015-08- No Acute URI Take 2 Malik n 09-26 tablets by [facility] (ZITHROMAX) 00:00: 00:00 mouth on 250 mg 00 :00 the first tablet day, then take one tablet every day for the next 4 days. cetirizine 2015-08- No Acute URI 10mg QD Take 1 Malik (ZYRTEC) 10 09-26 tablet by alth mg tablet 00:00: 00:00 mouth 00 :00 daily. (METFORMIN 2015-08 Yes Hoa 1{Table 2xD 1 by mouth [facility] HCL) 1000 0-19 Ad t} twice a Commu ni MG TABS 00:00: day ty 00 Health 1ST TIER 2015-08 Yes Clarissa use 5 [...] Com samantha TABS 00:00: bedtime ty 00 Health HUMSAINT ALPH[facility] 2015-08 Yes Clarissa inject 25 [employer] (INSULIN 0-19 Shrikanth units Commu ni LISPRO) 100 00:00: Three ty UNIT/ML 00 Times a Health SOCT Day with meals. LANTUS 2015-08 Yes Clarissa inject 80 [facility] (INSULIN 0-19 Shrikanth units Commu ni GLARGINE) 00:00: Twice a ty 100 UNIT/ML 00 Day Health SOLN azitherichi 2021- No Tobacco use Take 2 Malik n -26 04- disorder tablets by [place] (ZITHROMAX) 00:00: 00:00 mouth on 250 mg 00 :00 the first tablet day, then take one tablet every day for the next 4 days. azithromyci 2021- No Tobacco use Take 2 Malik n 9-26 04- disorder tablets by [place] (ZITHROMAX) 00:00: 00:00 mouth on 250 mg 00 :00 the first tablet day, then take one tablet every day for the next 4 days. budesonide- 2021- No Reactive 2{puff} Q.5D Inhale 2 [place] formoterol 04-27-16 airway Puffs by Swapnil d[facility] (SYMBICORT) 00:00: 00:00 disease, mouth 2 80-4.5 00 :00 mild times mcg/actuati intermitten daily on inhaler t, Inhale 2 uncomplicat puff by ed mouth 2 time a day. Rinse mouth after each use.. budesonide- 2021- No Reactive 2{puff} Q.5D Inhale 2 [place] formoterol 04-2716 airway Puffs by Sw[facility] (SYMBICORT) 00:00: 00:00 disease, mouth 2 80-4.5 00 :00 mild times mcg/actuati intermitten daily on inhaler t, Inhale 2 uncomplicat puff by ed mouth 2 time a day. Rinse mouth after each use.. INSULIN Yes Medication Use to Alonzo rris SYRINGE 1mL 7-12 refill inject [place] 30GX5/16" 00:00: medication syringe-nee 00 3 times dle daily. Use a new syringe each time.. blood Yes Medication Check Harri s glucose 7-12 refill sugars 3 Health test strips 00:00: times a 00 day. INSULIN Yes Medication Use to Alonzo rris SYRINGE 1mL 03-09 refill inject Heal th 30G/16" 00:00: medication syringe-nee 00 3 times dle daily. Use a new syringe each time.. blood Yes Medication Check Harri s glucose 03-09 refill sugars 3 Health test strips 00:00: times a 00 day. cetirizine 2021- No Seasonal 10mg QD Take 1 Malik (ZYRTEC) 10 03-09 allergies tablet by Health mg tablet 00:00: 00:00 mouth 00 :00 daily. lisinopril 2021- No Medication 2.5mg QD Take 1 Malik (PRINIVIL, 03-09 refill tablet by H ealth ZESTRIL) 00:00: 00:00 mouth 2.5 mg 00 :00 daily. tablet atorvastati 2021- No Medication 40mg Take 1 Malik n (LIPITOR) 03-09 refill tablet by Health 40 mg 00:00: 00:00 mouth at tablet 00 :00 bedtime nightly. cetirizine 2021- No Seasonal 10mg QD Take 1 Malik (ZYRTEC) 10 03-09 allergies tablet by Health mg tablet 00:00: 00:00 mouth 00 :00 daily. lisinopril 2021- No Medication 2.5mg QD Take 1 Malik (PRINIVIL, 03-09 refill tablet by H ealth ZESTRIL) 00:00: 00:00 mouth 2.5 mg 00 :00 daily. tablet atorvastati 2021- No Medication 40mg Take 1 Malik n (LIPITOR) 03-09 refill tablet by Health 40 mg 00:00: 00:00 mouth at tablet 00 :00 bedtime nightly. FLUoxetine 2021- No Medication 60mg QD Take 3 Malik (PROZAC) 20 03-09 refill capsules H ealth mg capsule 00:00: 00:00 by mouth 00 :00 daily. FLUoxetine 2021- No Medication 60mg QD Take 3 Malik (PROZAC) 20 03-09 refill capsules H ealth mg capsule 00:00: 00:00 by mouth 00 :00 daily. metFORMIN 2021- No Medication 850mg Q.5D Take 1 Malik (GLUCOPHAGE 03-09 refill tablet by [employer] ) 850 mg 00:00: 00:00 mouth 2 tablet 00 :00 times daily (with meals). metoprolol 2021- No Medication 12.5mg Q.5D Take 1/2 ( Malik tartrate 03-09 refill 0.5) Health (LOPRESSOR) 00:00: 00:00 tablets by 25 mg 00 :00 mouth 2 tablet times daily. gabapentin 2021- No Medication 300mg Take 1 Malik (NEURONTIN) 03-09 refill capsule by [facility] 300 mg 00:00: 00:00 mouth 3 capsule 00 :00 times daily. metFORMIN 2021- No Medication 850mg Q.5D Take 1 Malik (GLUCOPHAGE 03-09 refill tablet by [employer] ) 850 mg 00:00: 00:00 mouth 2 tablet 00 :00 times daily (with meals). metoprolol 2021- No Medication 12.5mg Q.5D Take 1/2 ( Malik tartrate 03-09 refill 0.5) Health (LOPRESSOR) 00:00: 00:00 tablets by 25 mg 00 :00 mouth 2 tablet times daily. gabapentin 2021- No Medication 300mg Take 1 Malik (NEURONTIN) 03-09 refill capsule by [facility] 300 mg 00:00: 00:00 mouth 3 capsule 00 :00 times daily. insulin 2021- No Diabetes Sliding Alonzo rris lispro 01-22 mellitus scale If Heal (HUMALOG) 00:00: 00:00 without glucose 100 unit/mL 00 :00 complicatio >200<250 injection n inject 3 Units If >250<300 inject 6 Units If >300<35 0 inject 9Units Check blood sugar 30 minutes before meals.. insulin 2021- No Diabetes Sliding Alonzo rris lispro 01-22 mellitus scale If Heal (HUMALOG) 00:00: 00:00 without glucose 100 unit/mL 00 :00 complicatio >200<250 injection n inject 3 Units If >250<300 inject 6 Units If >300<35 0 inject 9Units Check blood sugar 30 minutes before meals.. ergocalcife Yes Diabetes [id number] Take 1 Malik rol 4-27 mellitus capsule by Healt h (VITAMIN 00:00: due to mouth D2) 50,000 00 underlying weekly. unit condition capsule with diabetic nephropathy ergocalcife Yes Diabetes [id number] Take 1 Malik rol 4-27 mellitus capsule by Healt h (VITAMIN 00:00: due to mouth D2) 50,000 00 underlying weekly. unit condition capsule with diabetic nephropathy gabapentin 2021- No Hip pain 300mg Q.5D Take 1 Malik (NEURONTIN) 11-22- capsule by H ealth 300 mg 00:00: 00:00 mouth 2 capsule 00 :00 times daily. gabapentin 2021- No Hip pain 300mg Q.5D Take 1 Malik (NEURONTIN) 3- capsule by H ealth 300 mg 00:00: 00:00 mouth 2 capsule 00 :00 times daily. predniSONE 2021- No Diabetes Take 3 Malik (DELTASONE) - mellitus tabs daily Health 20 mg 00:00: 00:00 due to for three tablet 00 :00 underlying days then condition 2 tabs with daily for diabetic three days nephropathy then take 1 tab daily for 7 days. 1 mL 2021- No Throat pain Take 5 ml Malik diphenhydrA 04-23 by mouth Hea lth MINE 00:00: 00:00 twice syrup-1 mL 00 :00 daily.comp lidocaine ound at mucosal :[place] solution-1 Pharmacy mL nystatin oral suspension oral suspension- [facility] predniSONE 2021- No Diabetes Take 3 Malik (DELTASONE) - mellitus tabs daily Health 20 mg 00:00: 00:00 due to for three tablet 00 :00 underlying days then condition 2 tabs with daily for diabetic three days nephropathy then take 1 tab daily for 7 days. 1 mL 2021- No Throat pain Take 5 ml Malik diphenhydrA - by mouth Hea lth MINE 00:00: 00:00 twice syrup-1 mL 00 :00 daily.comp lidocaine ound at mucosal :[place] solution-1 Pharmacy mL nystatin oral suspension oral suspension- [facility] ibuprofen 2021- No Acute 800mg Take 1 Alberto ris (MOTRIN) 2- tonsillitis tablet by Health 800 mg 00:00: 00:00 , mouth tablet 00 :00 unspecified every 8 etiology hours as needed for Pain. ibuprofen 2021- No Acute 800mg Take 1 Alberto ris (MOTRIN) 2- tonsillitis tablet by Health 800 mg 00:00: 00:00 , mouth tablet 00 :00 unspecified every 8 etiology hours as needed for Pain. cetirizine Yes Acute 10mg QD Take 1 Joe is (ZYRTEC) 10 2-25 pharyngitis tablet by Health mg tablet 00:00: , mouth 00 unspecified daily. etiology cetirizine Yes Acute 10mg QD Take 1 Joe is (ZYRTEC) 10 2-25 pharyngitis tablet by Health mg tablet 00:00: , mouth 00 unspecified daily. etiology blood Yes DM w/o USE Malik glucose 2-11 complicatio DIRECTED 2 Health (BLOOD 00:00: n type II TIMES A GLUCOSE 00 DAY TEST STRIPS) test strips blood Yes DM w/o USE Malik glucose 2-11 complicatio DIRECTED 2 Health (BLOOD 00:00: n type II TIMES A GLUCOSE 00 DAY TEST STRIPS) test strips mometasone 2014-08 Yes Subacute 2{spray QD use 2 Malik (NASONEX) 1-19 maxillary } Sprays by Health 50 00:00: sinusitis each mcg/actuati 00 nostril on nasal route spray daily. cetirizine 2014-08 Yes Subacute 10mg QD Take 1 H arris (ZYRTEC) 10 1-19 maxillary tablet by Health mg tablet 00:00: sinusitis mouth 00 daily. mometasone 2014-08 Yes Subacute 2{spray QD use 2 Malik (NASONEX) 1-19 maxillary } Sprays by Health 50 00:00: sinusitis each mcg/actuati 00 nostril on nasal route spray daily. cetirizine 2014-08 Yes Subacute 10mg QD Take 1 H arris (ZYRTEC) 10 1-19 maxillary tablet by Health mg tablet 00:00: sinusitis mouth 00 daily. nitroGLYCER 2014-08- No Ischemic Dissolve 1 Malik IN 09-16 heart tablet Health (NITROSTAT) 00:00: 00:00 disease under the 0.4 mg 00 :00 tongue sublingual every 5 tablet minutes as needed, up to 3 times. If chest pain persists, call 911. albuterol 2014-08- No Reactive 2{puff} Inhale 2 Malik (VENTOLIN 09-16 airway Puffs by [facility] HFA,PROVENT 00:00: 00:00 disease, mouth 4 [place] 00 :00 mild times HFA,PROAIR intermitten daily as HFA) 90 t, needed for mcg/actuati uncomplicat Wheezing. on inhaler ed nitroGLYCER 2014-08- No Ischemic Dissolve 1 [place] IN 09-16 heart tablet [facility] (NITROSTAT) 00:00: 00:00 disease under the 0.4 mg 00 :00 tongue sublingual every 5 tablet minutes as needed, up to 3 times. If chest pain persists, call 911. albuterol 2014-08- No Reactive 2{puff} Inhale 2 [place] (VENTOLIN 09-16 airway Puffs by [facility] HFA,PROVENT 00:00: 00:00 disease, mouth 4 [place] 00 :00 mild times HFA,PROAIR intermitten daily as HFA) 90 t, needed for mcg/actuati uncomplicat Wheezing. on inhaler ed aspirin 2014-08- No Essential 81mg QD Odette and [facility] (ASPIRIN) 09-16 hypertensio swallow 1 Health 81 mg 00:00: 00:00 n, benign tablet by chewable 00 :00 mouth tablet daily. aspirin 2014-08- No Essential 81mg QD Chew and Malik (ASPIRIN) 09-16 hypertensio swallow 1 Health 81 mg 00:00: 00:00 n, benign tablet by chewable 00 :00 mouth tablet daily. loratadine 2014-08 Yes Acute 10mg QD Take 1 Joe is (CLARITIN) 0-13 bronchitis tablet by Health 10 mg 00:00: due to mouth tablet 00 other daily. specified organisms loratadine 2014-08 Yes Acute 10mg QD Take 1 Joe is (CLARITIN) 0-13 bronchitis tablet by Health 10 mg 00:00: due to mouth tablet 00 other daily. specified organisms famotidine 2014-08 Yes Medication 40mg QD Take 2 [facility] (PEPCID) 20 0-12 refill tablets by Health mg tablet 00:00: mouth 00 daily. famotidine 2014-08- No Medication 40mg QD Take 2 [place] (PEPCID) 20 0-12 09-20 refill tablets by Health mg tablet 00:00: 00:00 mouth 00 :00 daily. loratadine 2014-08- No Other 10mg QD Take 1 Alberto ris (CLARITIN) 004-23 allergic tablet by Health 10 mg 00:00: 00:00 rhinitis mouth tablet 00 :00 daily Take 1 tablet by mouth once a day.. loratadine 2014-08- No Other 10mg QD Take 1 Alberto ris (CLARITIN) 004-23 allergic tablet by Health 10 mg 00:00: 00:00 rhinitis mouth tablet 00 :00 daily Take 1 tablet by mouth once a day.. triamcinolo Yes Type II or Q.5D Apply to [facility] 05-27 unspecified affected Heal (KENALOG) 00:00: type area 2 0.025 % 00 diabetes times topical mellitus daily. cream without mention of complicatio n, not stated as uncontrolle d triamcinolo Yes Type II or Q.5D Apply to [facility] 05-27 unspecified affected Heal (KENALOG) 00:00: type area 2 0.025 % 00 diabetes times topical mellitus daily. cream without mention of complicatio n, not stated as uncontrolle d insulin No Type II or Inject 80 [place] glargine 05-27 unspecified units He alth (LANTUS) 00:00: 00:00 type under the 100 unit/mL 00 :00 diabetes skin every injection mellitus evening. without mention of complicatio n, not stated as uncontrolle d insulin No Type II or Inject 80 [place] glargine 05-27 unspecified units He alth (LANTUS) 00:00: 00:00 type under the 100 unit/mL 00 :00 diabetes skin every injection mellitus evening. without mention of complicatio n, not stated as uncontrolle d hydrocortis Yes Contact Q.5D Apply to [facility] 2.5 % 08 dermatitis affected Health ointment 00:00: area 2 00 times daily. hydrocortis Yes Contact Q.5D Apply to [facility] 2.5 % 03-05 dermatitis affected Health ointment 00:00: area 2 00 times daily. guaiFENesin 2021- No Bronchitis, 600mg Q.5D Take 1 [place] SR 02-20 not tablet by Health (MUCINEX) 00:00: 00:00 specified mouth 2 600 mg 00 :00 as acute or times extended chronic daily Take release 1 tablet tablet twice a day as needed for cough and chest congestion .. guaiFENesin 2021- No Bronchitis, 600mg Q.5D Take 1 [place]ik SR 02-20 not tablet by Health (MUCINEX) 00:00: 00:00 specified mouth 2 600 mg 00 :00 as acute or times extended chronic daily Take release 1 tablet tablet twice a day as needed for cough and chest congestion .. INSULIN Yes Type II or Use to Alonzo rris SYRINGE 1mL 6-18 unspecified inject Health 30GX5/16" 00:00: type insulin syringe-nee 00 diabetes Use as dle mellitus directed. without Use a new mention of syringe complicatio each time. n, not stated as uncontrolle d INSULIN Yes Type II or Use to Alonzo rris SYRINGE 1mL 6-18 unspecified inject Health 30GX5/16" 00:00: type insulin syringe-nee 00 diabetes Use as dle mellitus directed. without Use a new mention of syringe complicatio each time. n, not stated as uncontrolle d mometasone 2021- No Allergic 2{spray QD 2 Sprays [place] (NASONEX) 01-22 rhinitis, } by each H ealth 50 00:00: 00:00 cause nostril mcg/actuati 00 :00 unspecified route on nasal daily. spray mometasone 2021- No Allergic 2{spray QD 2 Sprays [place] (NASONEX) 01-22 rhinitis, } by each H ealth 50 00:00: 00:00 cause nostril mcg/actuati 00 :00 unspecified route on nasal daily. spray fluorouraci 2021- No Actinic Q.5D Apply to [place] (EFUDEX) 09-10 keratosis affected Health 5 % topical 00:00: 00:00 area 2 cream 00 :00 times daily For 2 weeks or till effect. fluorouraci 2021- No Actinic Q.5D Apply to [...] n, not stated as uncontrolle d LANCETS Yes Type II or 4 times H arris 3-21 unspecified weekly. Healt h 00:00: type 00 diabetes mellitus without mention of complicatio n, not stated as uncontrolle d glucose Yes Type II or 4 times H arris blood test 3-21 unspecified weekly. Health (PRECISION 00:00: type XTRA) strip 00 diabetes mellitus without mention of complicatio n, not stated as uncontrolle d LANCETS Yes Type II or 4 times H arris 3-21 unspecified weekly. Healt h 00:00: type 00 diabetes mellitus without mention of complicatio n, not stated as uncontrolle d Immunizations Ordered Immunization Filled Immunization Date Status Commen ts Source Name Name Pfizer Sars-cov-2 2021-05-25 Completed [facility] Vaccination 00:00:00 Pfizer Sars-cov-2 2020-09-21 Completed [facility] Vaccination 00:00:00 Pfizer Sars-cov-2 2020-08-31 Completed [facility] Vaccination 00:00:00 flu vax 2017-07-30 Completed [facility] 12:28:45 [facility] flu vax 2016-06-16 Completed [facility] 08:28:26 Health Influenza Vaccine 2015-05-27 Completed [facility] 00:00:00 Influenza Vaccine 2015-05-27 Completed [facility] 00:00:00 Influenza Vaccine 2014-06-19 Completed [facility] 00:00:00 Influenza Vaccine 2014-06-19 Completed [facility] 00:00:00 PPV 23 Pneumococcal 2012-08-31 Completed [facility] Polys[facility]aride 00:00:00 PPV 23 Pneumococcal 2012-08-31 Completed [facility] Polysaccaride 00:00:00 Influenza Vaccine 2012-08-01 Completed [facility] 00:00:00 Tdap Tetanus, 2012-08-01 Completed [facility] diphtheria, 00:00:00 acellular pertussis Vaccine Influenza Vaccine 2012-08-01 Completed [facility] 00:00:00 Tdap Tetanus, 2012-08-01 Completed [facility] diphtheria, 00:00:00 acellular pertussis Vaccine Vital Signs Vital Name Observation Time Observation Value Comments Source Systolic blood 2022-01-06 16:40:00 128 mm[Hg] [facility] pressure Diastolic blood 2022-01-06 16:40:00 63 mm[Hg] [facility] Heart rate 2022-01-06 16:40:00 70 /min [facility] Body temperature 2022-01-06 16:40:00 36.28 Melody [facility] Body height 2022-01-06 16:40:00 162.6 cm [facility] Body weight 2022-01-06 16:40:00 75.978 kg [facility] BMI 2022-01-06 16:40:00 28.75 kg/m2 [facility] Systolic blood 2022-05-18 13:38:00 143 mm[Hg] [facility] pressure Diastolic blood 2022-05-18 13:38:00 60 mm[Hg] [facility] pressure Heart rate 2022-05-18 13:38:00 72 /min [facility] Body temperature 2022-05-18 13:38:00 36.83 Melody [facility] is Health Respiratory rate 2022-05-18 13:38:00 18 /min [facility] is [facility] Body height 2022-05-18 13:38:00 162.6 cm [facility] Body weight 2022-05-18 13:38:00 79.833 kg [facility] BMI 2022-05-18 13:38:00 30.21 kg/m2 [facility] Systolic blood 2022-04-23 12:30:00 169 mm[Hg] [facility] pressure Diastolic blood 2022-04-23 12:30:00 51 mm[Hg] [facility] Health pressure Heart rate 2022-04-23 12:30:00 58 /min [facility] Body temperature 2022-04-23 12:30:00 36.61 Meldoy [facility] Respiratory rate 2022-04-23 12:30:00 19 /min [facility] Body height 2022-04-23 12:30:00 162.6 cm [facility] Body weight 2022-04-23 12:30:00 74.027 kg [facility] BMI 2022-04-23 12:30:00 28.01 kg/m2 [facility] Oxygen saturation in 2022-02-03 15:32:00 98 /min [facility] Arterial blood by Pulse oximetry temperature site 2020-07-02 15:12:44 oral Lega [facility] respiratory rate E&M 2020-07-02 15:12:44 16 /min [facility] pulse rate 2020-07-02 15:12:44 60 /min [facility] blood pressure, 2020-07-02 15:12:44 61 mm[Hg] Leg[facility] diastolic [facility] blood pressure, 2020-07-02 15:12:44 119 mm[Hg] Leg[facility] systolic Health weight E&M 2020-07-02 15:12:44 169 [lb_av] [facility] weight in kilograms 2020-07-02 15:12:44 76.82 kg L [facility] E& Health height in 2020-07-02 15:12:44 162.56 cm [facility] centimeters E&M Health oxygen saturation, 2020-07-02 15:12:44 98 % [facility] oximetry Health temperature E&M 2020-07-02 15:12:44 98.0 [degF] [facility] oxygen saturation, 2018-08-14 10:54:52 94 % [facility] blood pressure, 2018-08-14 10:54:52 72 mm[Hg] Legac [facility] diastolic Health blood pressure, 2018-08-14 10:54:52 147 mm[Hg] Legac [facility] systolic Health pulse rate 2018-08-14 10:54:52 81 /min [facility] Health temperature E&M 2018-08-14 10:54:52 98.4 [degF] Leg[facility] Health weight E&M 2018-08-14 10:54:52 171.25 [lb_av] [facility] weight in kilograms 2018-08-14 10:54:52 77.84 kg L [facility] E& Health temperature site 2018-08-14 10:54:52 oral Lega cy [facility] Health height in 2018-08-14 10:54:[address] [facility] centimeters E&M Health weight E&M 2018-07-04 14:01:38 184 [facility]lb_[facility] 2018-07-04 14:01:38 83.64 kg L [facility] E& Health blood pressure, 2018-07-04 14:01:38 83 mm[Hg] Leg[facility] diastolic Health blood pressure, 2018-07-04 14:01:38 133 mm[Hg] Leg[facility] systolic Health oxygen saturation, 2018-07-04 14:01:38 95 % [facility] oximetry Health pulse rate 2018-07-04 14:01:38 90 /min [facility] 2018-07-04 14:01:38 98.2 [degF] [facility] temperature site 2018-07-04 14:01:38 oral Lega [facility] height in 2018-07-04 14:01:[address] [facility] centimeters E& Health blood pressure, 2017-10-28 08:14:02 72 mm[Hg] Leg[facility] diastolic [facility] blood pressure, 2017-10-28 08:14:02 123 mm[Hg] [facility] systolic Health oxygen saturation, 2017-10-28 08:14:02 97 % [facility] oximetry Health pulse rate 2017-10-28 08:14:02 85 /min [facility] temperature E&M 2017-10-28 08:14:02 96.9 [degF] Leg[facility] Health weight E&M 2017-10-28 08:14:02 185.13 [lb_av] [facility] weight in kilograms 2017-10-28 08:14:02 84.15 kg L [facility] temperature site 2017-10-28 08:14:02 tympanic Lega [facility] height in 2017-10-28 08:14:[address] [facility] centimeters E&M Health pulse rate 2017-07-30 12:28:45 80 /min [facility] blood pressure, 2017-07-30 12:28:45 72 mm[Hg] Legac y [facility] diastolic Health blood pressure, 2017-07-30 12:28:45 146 mm[Hg] Legac y [facility] systolic Health respiratory rate E&M 2017-07-30 12:28:45 16 /min [facility] Health oxygen saturation, 2017-07-30 12:28:45 98 % [facility] oximetry Health temperature E&M 2017-07-30 12:28:45 98.0 [degF] Legac y [facility] Health weight E&M 2017-07-30 12:28:45 184 [lb_av] [facility] weight in kilograms 2017-07-30 12:28:45 83.64 kg L [facility] E& Health temperature site 2017-07-30 12:28:45 tympanic Lega [facility] height in 2017-07-30 12:28:[address] [facility] centimeters E&M Health pulse rate 2016-12-16 13:55:25 82 /min [facility] Health blood pressure, 2016-12-16 13:55:25 77 mm[Hg] Leg[facility] diastolic Health blood pressure, 2016-12-16 13:55:25 155 mm[Hg] Leg[facility] systolic Health oxygen saturation, 2016-12-16 13:55:25 96 % [facility]&M 2016-12-16 13:55:25 99.6 [degF] Legac y [facility] Health weight E&M 2016-12-16 13:55:25 185.60 [lb_av] [facility] weight in kilograms 2016-12-16 13:55:25 84.36 kg L [facility] E& Health temperature site 2016-12-16 13:55:25 tympanic Lega [facility] height in 2016-12-16 13:55:25 162.56 cm [facility] centimeters E&M Health pulse rate 2016-08-14 09:50:08 76 /min [facility] blood pressure, 2016-08-14 09:50:08 67 mm[Hg] Legac y [facility] diastolic Health blood pressure, 2016-08-14 09:50:08 111 mm[Hg] Legac y [facility] systolic Health temperature site 2016-08-14 09:50:08 tympanic Lega cy [facility] temperature E&M 2016-08-14 09:50:08 96.9 [degF] [facility] oxygen saturation, 2016-08-14 09:50:08 97 % [facility] oximetry Health weight E&M 2016-08-14 09:50:08 179.25 [lb_av] [facility] weight in kilograms 2016-08-14 09:50:08 81.48 kg L [facility] E& Health height in 2016-08-14 09:50:[address] [facility] centimeters E&M Health weight E&M 2016-06-16 08:28:26 178.50 [lb_av] [facility] weight in kilograms 2016-06-16 08:28:26 81.14 kg L [facility] oxygen saturation, 2016-06-16 08:28:26 98 % [facility] pulse rate 2016-06-16 08:28:26 73 /min [facility] blood pressure, 2016-06-16 08:28:26 69 mm[Hg] [facility] diastolic Health blood pressure, 2016-06-16 08:28:26 113 mm[Hg] [facility] systolic [facility] temperature E&M 2016-06-16 08:28:26 96.9 [degF] [facility] height in 2016-06-16 08:28:[address] [facility] centimeters E&M Health temperature site 2016-06-16 08:28:26 tympanic Lega [facility] Procedures Procedure Date / Time Performed Performing Clinician Sourc e HEMOCCULT KIT FOR SPECIMEN 2022-05-18 14:13:44 Polly Warren [facility] COLLECTION AT HOME OPHTHALMOLOGY RETINAL SCAN 2022-05-18 13:20:49 Clarissa Roberson [facility] MAMMOGRAM BILAT SCREEN 2022-05-18 11:55:54 Polly Warren [facility] Health DIGITAL W/BALDOMERO CA 125 2022-05-07 12:42:00 Blayne Robbins [facility] CBC/DIFF 2022-05-07 12:42:00 [facility] COMPREHENSIVE METABOLIC 2022-05-07 12:42:00 Blayne Robbins [facility] PANEL MAGNESIUM 2022-05-07 12:42:00 Blayne Robbins ealt CBC 2022-05-07 12:42:00 Blayne Robbins [facility] MICROALBUMIN / CREATININE 2022-04-23 12:28:00 Polly Warren [facility] URINE RATIO HEMOGLOBIN A1C 2022-04-23 12:21:00 Polly Warren [facility] COMPREHENSIVE METABOLIC 2022-04-23 12:21:[address] [facility] PANEL CBC (WITHOUT DIFFERENTIAL) 2022-04-23 12:21:00 Polly Warren [facility] CT ABDOMEN AND PELVIS 2022-04-15 14:21:00 Sweetie Grimes [facility] CONTRAST CT CHEST W CONTRAST 2022-04-15 14:21:00 Yodit Gonzalez [facility] HPV HIGH-RISK 2022-04-09 14:21:00 Yodit Gonzalez [facility] ENDOMETRIAL BIOPSY SUCTION 2022-04-09 14:13:31 Blayne Robbins [facility] TYPE TISSUE EXAM 2022-04-09 14:04:00 Yodit Gonzalez [facility] PAP TEST CYTOLOGY 2022-04-09 14:04:00 Yodit Gonzalez [facility] CREATININE 2022-03-18 14:43:00 Sweetie Grimes [facility] CA 125 2022-03-16 10:51:00 Thalia Suttont h CA 19-9 2022-03-16 10:51:00 Thalia Sutton h CEA 2022-03-16 10:51:00 [facility] (TTE) 2022-02-10 09:55:00 Deysi Salter [facility] Health COMPLETE [id number] LEAD EKG 2022-02-03 15:41:10 Natali Siddiqui [facility] DIABETIC FOOT EXAM 2021-11-27 09:28:06 SalterDeysi sun [facility] ealth GLUCOSE POC 2021-11-27 09:24:00 SalterDeysi sun [facility] GLUCOSE POC 2021-11-27 08:43:00 SalterDeysi sun [facility] POC RAPID HIV 2021-11-27 00:00:00 SalterDeysi sun [facility] POC URINE DIPSTICK, WITHOUT 2021-11-27 00:00:00 Deysi Salter [facility] MICRO Plan of Care Planned Activity Planned Date Details Comments Source Future Scheduled Test 2027-04-09 Screening for malignant [facility] 00:00:00 neoplasm of cervix (procedure) [code = 296060897] Future Scheduled Test 2027-04-09 Screening for malignant [facility] 00:00:00 neoplasm of cervix (procedure) [code = 863722710] Future Scheduled Test 2027-04-09 Screening for malignant [facility] 00:00:00 neoplasm of cervix (procedure) [code = 615553144] Future Scheduled Test 2027-04-09 Screening for malignant [facility] 00:00:00 neoplasm of cervix (procedure) [code = 590845495] Future Scheduled Test 2023-05-18 Breast Cancer Scrn [facility] 00:00:00 (Yearly) [code = Breast Cancer Scrn (Yearly)] Future Scheduled Test 2023-05-18 DM Retinal Exam [facility] 00:00:00 (Yearly) [code = DM Retinal Exam (Yearly)] Future Scheduled Test 2023-04-23 Hemoglobin A1c [facility] 00:00:00 measurement (procedure) [code = 07687352] Future Scheduled Test 2023-04-23 Hemoglobin A1c [facility] 00:00:00 measurement (procedure) [code = 10773763] Future Scheduled Test 2023-04-23 Urine screening for [facility] 00:00:00 protein (procedure) [code = 921766691] Future Scheduled Test 2022-11-27 DM Foot Exam (Yearly) [facility] 00:00:00 [code = DM Foot Exam (Yearly)] Future Scheduled Test 2022-11-27 DM Foot Exam (Yearly) [facility] 00:00:00 [code = DM Foot Exam (Yearly)] Future Scheduled Test 2021-07-20 COVID-19 Vaccine (4 - [facility] 00:00:00 Booster for Pfizer series) [code = COVID-19 Vaccine (4 - Booster for Pfizer series)] Future Scheduled Test 2021-06-23 DM Retinal Exam Alberto [facility] 00:00:00 (Yearly) [code = DM Retinal Exam (Yearly)] Future Scheduled Test 2019 Screening for malignant [facility] 00:00:00 neoplasm of colon (procedure) [code = 517627684] Future Scheduled Test 2019 Screening for malignant [facility] 00:00:00 neoplasm of colon (procedure) [code = 849482295] Future Scheduled Test 2016-12-03 CORONARY ARTERY DISEASE [facility] 00:00:00 AGE 18 AND UP [code = CORONARY ARTERY DISEASE AGE 18 AND UP] Future Scheduled Test 2016-12-03 CORONARY ARTERY DISEASE [facility] 00:00:00 AGE 18 AND UP [code = CORONARY ARTERY DISEASE AGE 18 AND UP] Future Scheduled Test 2015-05-08 Breast Cancer Scrn [facility] 00:00:00 (Yearly) [code = Breast Cancer Scrn (Yearly)] Future Scheduled Test 2013-08-31 Imm Pneumococcal 0-64 [facility] 00:00:00 (2 - PCV) [code = Imm Pneumococcal 0-64 (2 - PCV)] Future Scheduled Test 2013-08-31 Imm Pneumococcal 0-64 [facility] 00:00:00 (2 - PCV) [code = Imm Pneumococcal 0-64 (2 - PCV)] Future Scheduled Test 1970-04-04 COVID-19 Vaccine (#1) [facility] 00:00:00 [code = COVID-19 Vaccine (#1)] Future Scheduled Test 1969 Fluoride Varnish [code [facility] 00:00:00 = Fluoride Varnish] Future Scheduled Test 1969 Fluoride Varnish [code [facility] 00:00:00 = Fluoride Varnish] Encounters Start End Encounter Admission Attending Care Care Encounter Source Date/Time Date/Time Type Type Clinicians Facility Department ID 2022-02-18 Outpatient SHELBY, [facility] [id number] [place] 03:25:44 DOMENICA [facility] 2022-02-17 Outpatient [facility] [id number] [place] 09:29:23 [facility] 2022-01-06 Outpatient HEAVENLY [facility] [id number] [place] 11:29:35 NGOCNU [facility] 2021-12-16 Outpatient SHELBY, [facility] [id number] [place] 09:44:42 DOMENICA [facility] 2021-06-14 Outpatient lc.maryasi [facility] 15:39:19 t[place]am [id number] [facility]11 Outpatient lc.case [facility] 21:00:49 th [id number] [facility] 2021-06-11 Outpatient lc.case [facility] 19:26:01 th [id number] [facility] 2022-07-12 2022-07-12 Outpatient [facility] [id number] [place] 00:00:00 00:00:00 Health 2022-07-08 2022-07-08 [facility] [id number] [place] 00:00[facility]00 [facility] 2022-06-29 Outpatient [facility] [id number] [place] 00:00:00 00:00:00 Health 2022-06-28 2022-06-28 [facility] [id number] [place] 00:00:00 00:00:00 [facility] 2022-06-21 2022-06-21 Outpatient [facility] [id number] [place] 00:00:00 00:00:00 [facility] 2022-06-08 2022-06-08 Outpatient [facility] [id number] [place] 00:00:00 00:00:00 Health 2022-06-07 2022-06-07 Outpatient [facility] [id number] [place] 00:00:00 00:00:00 Health 2022-05-31 2022-05-31 Outpatient [facility] [id number] [place] 00:00:00 00:00:00 Health 2022-05-28 2022-05-28 Outpatient [facility] [id number] [place] 00:00:00 00:00:00 Health 2022-05-28 2022-05-28 Outpatient [facility] [id number] [place] 00:00:00 00:00:00 Health 2022-05-26 2022-05-26 Outpatient [facility] [id number] [place] 00:00:00 00:00:00 [facility] 2022-05-18 2022-05-18 [facility] [id number] [place] 13:32:29 14:35:01 POLLY [facility] 2022-05-18 2022-05-18 [facility] [id number] [place] 13:00:00 14:35:01 Visit Polly Mason [place] 2022-05-18 2022-05-18 [facility] [id number] [place] 13:30:00 13:30:00 Procedure Clarissa Fuller [facility] 2022-05-18 2022-05-18 Outpatient [facility] [id number] [place] 12:41:33 13:24:12 [facility] 2022-05-18 2022-05-18 Outpatient [facility] [id number] [place] 11:07:14 11:07:14 [facility] 2022-05-18 2022-05-18 [facility] [id number] [place] 11:07:14 11:07:14 Encounter [place] 2022-05-18 2022-05-18 Outpatient [facility] [facility] [id number] [place] 00:00:00 00:00:00 [facility] 2022-05-18 2022-05-18 [facility] [id number] [place] 00:00:00 00:00:00 Only Polly Mason [place] 2022-05-18 2022-05-18 Tino Wagner [facility] [id number] [place] 00:00:00 00:00:00 Jen Mark [facility] 2022-05-18 2022-05-18 [facility] [id number] [place] 00:00:00 00:00:00 Only Polly Mason [place] 2022-05-13 2022-05-13 [facility] [id number] [place] 00:00:00 00:00:00 [facility] 2022-05-10 2022-05-10 Outpatient [facility] [id number] [place] 08:58:18 17:48:10 [facility] 2022-05-10 2022-05-10 Infusion Anitra Murillo [facility] [id number] [place] 08:30:00 17:48:10 [facility] 2022-05-07 2022-05-07 Office [facility] [id number] [place] 13:30:00 14:37:11 Visit Brayan Mason [place] 2022-05-07 2022-05-07 Outpatient [facility] [id number] [place] 12:55:17 14:37:11 BRAYAN [facility] 2022-05-07 2022-05-07 Outpatient [facility] [id number] [place] 12:38:13 12:42:58 [facility] 2022-05-07 2022-05-07 Outpatient [facility] [id number] [place] 00:00:00 00:00:00 [facility] 2022-05-06 2022-05-06 [facility] [id number] [place] 00:00:00 00:00:00 [facility] 2022-05-05 2022-05-05 [facility] [id number] [place] 00:00:00 00:00:00 Only Clarissa Jonny [place] 2022-04-30 2022-04-30 Outpatient [facility] [id number] [place] 00:00:00 00:00:00 [facility] 2022-04-29 2022-04-29 [facility] [id number] [place] 14:40:00 14:45:59 Visit Wagner [facility] Zahida Warrenlyn 2022-04-29 2022-04-29 Outpatient [facility] [id number] [place] 13:04:49 14:45:59 [facility] 2022-04-29 2022-04-29 Outpatient [facility] [id number] [place] 13:41:59 13:43:09 [facility] 2022-04-29 2022-04-29 Outpatient [facility] [id number] [place] 00:00:00 00:00:00 [facility] 2022-04-29 2022-04-29 Patient Heri, [facility] [id number] [place] 00:00:00 00:00:00 Education Jessica [place] 2022-04-28 2022-04-28 [facility] [id number] [place] 00:00:00 00:00:00 Review Anna S Heal 2022-04-26 2022-04-26 Outpatient [facility] [id number] [place] 00:00:00 00:00:00 [facility] 2022-04-23 2022-04-23 Office FELICITY [facility] [id number] [place] 12:30:22 13:58:38 Visit MARY Silhilary 2022-04-23 2022-04-23 Office Mary Blevins [facility] [id number] [place] 12:00:00 13:58:38 Visit Thomas Felix [facility] 2022-04-23 2022-04-23 Outpatient [facility] [id number] [place] 12:19:18 12:22:01 [facility] 2022-04-23 2022-04-23 Office SHAY [facility] [id number] [place] 10:10:39 12:17:06 Visit [facility] 2022-04-23 2022-04-23 Office Cammy Dial [facility] [id number] [place] 09:20:00 12:17:06 [facility] 2022-04-23 2022-04-23 Out[facility] [id number] [place] 00:00:00 00:00:00 [facility] 2022-04-23 2022-04-23 Outpatient [facility] [id number] [place] 00:00:00 00:00:00 [facility] 2022-04-23 2022-04-23 Outpatient [facility] [id number] [place] 00:00:00 00:00:00 [facility] 2022-04-23 2022-04-23 [facility] [id number] [place] 00:00:00 00:00:00 Only Polly Mujica 2022-04-23 2022-04-23 Nurse [facility] [id number] [place] 00:00:00 00:00:00 Polly Mujica 2022-04-23 2022-04-23 Caroline Connor [facility] [id number] [place] 00:00:00 00:00:00 Only [facility] 2022-04-23 2022-04-23 Caroline Warren [facility] [id number] [place] 00:00:00 00:00:00 Only Polly Mason [place] 2022-04-23 2022-04-23 Nurse Only Briana [facility] [id number] [place] 00:00:00 00:00:00 Polly Mason [place] 2022-04-23 2022-04-23 Caroline Connor [facility] [id number] [place] 00:00:00 00:00:00 Only [facility] 2022-04-15 2022-04-15 Ancillary [facility] [id number] [place] 13:20:00 14:24:27 Procedure [place] 2022-04-15 2022-04-15 Ancillary [facility] [id number] [place] 13:10:09 14:24:27 Procedure [place] 2022-04-14 2022-04-14 Refill Danielle Wilson [facility] [id number] [place] 00:00:00 00:00:00 [facility] 2022-04-14 2022-04-14 Refill Cornelio [facility] [id number] [place] 00:00:00 00:00:00 Jugnu [facility] 2022-04-14 2022-04-14 Refill Danielle Wilson [facility] [id number] [place] 00:00:00 00:00:00 [facility] 2022-04-14 2022-04-14 Refill Cornelio [facility] [id number] [place] 00:00:00 00:00:00 Jugnu [facility] 2022-04-13 2022-04-13 Caroline Roberson [facility] [id number] [place] 00:00:00 00:00:00 Only Clarissa Fuller [place] 2022-04-13 2022-04-13 Refill Cornelio [facility] [id number] [place] 00:00:00 00:00:00 Jugnu [facility] 2022-04-13 2022-04-13 Refill Joie [facility] [id number] [place] 00:00:00 00:00:00 Deysi Fabian [facility] 2022-04-13 2022-04-13 Refill Dov [facility] [id number] [place] 00:00:00 00:00:00 [facility] 2022-04-13 2022-04-13 Refill Faustinella [facility] [id number] [place] 00:00:00 00:00:00 , Shade Parrish [facility] 2022-04-13 2022-04-13 Refill Daily, [facility] [id number] [place] 00:00:00 00:00:[address] [facility] 2022-04-13 2022-04-13 Refill Lesley [facility] [id number] [place] 00:00:00 00:00:00 Thalia Mason [facility] 2022-04-13 2022-04-13 Nurse Lewis, [facility] [id number] [place] 00:00:00 00:00:00 Triage Elijah Healt 2022-04-13 2022-04-13 Caroline Roberson [facility] [id number] [place] 00:00:00 00:00:00 Only Clarissa Fuller [place] 2022-04-13 2022-04-13 Refill Cornelio, [facility] [id number] [place] 00:00:00 00:00:00 Sweetie Flores [facility] 2022-04-13 2022-04-13 Refill Joie, [facility] [id number] [place] 00:00:00 00:00:00 [facility]ysi [facility]ian [facility] 2022-04-13 2022-04-13 Refill Dov, [facility] [id number] [place] 00:00:00 00:00:00 [facility] 2022-04-13 2022-04-13 Refill Faishinella [facility] [id number] [place] 00:00:00 00:00:00 , Shade [facility] 2022-04-13 2022-04-13 Refill Daily [facility] [id number] [place] 00:00:00 00:00:[address] [facility] 2022-04-13 2022-04-13 Refill Lesley [facility] [id number] [place] 00:00:00 00:00:[address] [facility] 2022-04-13 2022-04-13 Nurse Lewis, [facility] [id number] [place] 00:00:00 00:00:00 Triage Elijah Healt 2022-04-122022-04-12 [facility] [id number] [place] 00:00:00 00:00:00 [facility] 2022-04-12 2022-04-12 [facility] [id number] [place] 00:00:00 00:00:00 [facility] 2022-04-09 2022-04-09 Office Los AngelesMary [facility] [id number] [place] 11:30:00 14:28:10 Visit Yodit Gonzalez [facility] 2022-04-09 2022-04-09 Office [place] [facility] [id number] [place] 11:30:00 14:28:10 Visit Yodit Gonzalez [facility] 2022-04-09 2022-04-09 [facility] [id number] [place] 00:00:00 00:00:00 MARY Armijo 2022-04-09 2022-04-09 [facility] [id number] [place] 00:00:00 00:00:00 Only Yodit [facility] 2022-04-09 2022-04-09 Orders [facility] [id number] [place] 00:00:00 00:00:00 Only Yodit [facility] 2022-03-18 2022-03-18 Outpatient [facility] [id number] [place] 14:40:35 14:44:03 [facility] 2022-03-18 2022-03-18 Office [facility] [id number] [place] 13:30:00 14:28:59 Visit [facility] 2022-03-18 2022-03-18 Office [facility] [id number] [place] 13:30:00 14:28:59 Visit [facility] 2022-03-18 2022-03-18 [facility] [id number] [place] 00:00:00 00:00:00 [facility] 2022-03-17 2022-03-17 [facility] [id number] [place] 00:00:00 00:00:00 Triage Elijah Armijo 2022-03-17 2022-03-17 Nurse Joshua, [facility] [id number] [place] 00:00:00 00:00:00 Gregory Armijo 2022-03-16 2022-03-16 Outpatient LESLEY, [facility] [id number] [place] 10:43:39 10:51:12 [facility] 2022-03-16 2022-03-16 Outpatient LESLEY, [facility] [id number] [place] 00:00:00 00:00:00 [facility] 2022-03-16 2022-03-16 Outpatient LESLEY, [facility] [id number] [place] 00:00:00 00:00:00 [facility] 2022-03-15 2022-03-15 Refill Salter, [facility] [id number] [place] 00:00:00 00:00:00 Deysi Armijo 2022-03-15 2022-03-15 Refill Dov, [facility] [id number] [place] 00:00:00 00:00:00 [facility] 2022-03-15 2022-03-15 Refill Lesley, [facility] [id number] [place] 00:00:00 00:00:00 [facility] 2022-03-15 2022-03-15 Refill Salter, [facility] [id number] [place] 00:00:00 00:00:00 Deysi Armijo 2022-03-15 2022-03-15 Refill Dov, [facility] [id number] [place] 00:00:00 00:00:00 [facility] 2022-03-15 2022-03-15 Refill Leslye, [facility] [id number] [place] 00:00:00 00:00:00 [facility] 2022-03-08 2022-03-08 Orders Lesley, [facility] [id number] [place] 00:00:00 00:00:[address] [facility] 2022-03-08 2022-03-08 Orders Lesley, [facility] [id number] [place] 00:00:00 00:00:[address] [facility] 2022-03-04 2022-03-04 Office Lesley, [facility] [id number] [place] 10:20:00 11:47:45 Visit Thalia Mason [facility] 2022-03-04 2022-03-04 Office Lesley, [facility] [id number] [place] 10:20:00 11:47:45 Visit Thalia Mason [facility] 2022-02-16 2022-02-16 Nurse Lay, Pricilla [facility] [id number] [place] 00:00:00 00:00:00 [facility] 2022-02-16 2022-02-16 Refill Dov, [facility] [id number] [place] 00:00:00 00:00:00 [facility] 2022-02-16 2022-02-16 Refill Faustinella [facility] [id number] [place] 00:00:00 00:00:00 , [facility]ade [facility] 2022-02-16 2022-02-16 Nurse Lay, Pricilla [facility] [id number] [place] 00:00:00 00:00:00 [facility] 2022-02-16 2022-02-16 Refill Dov [facility] [id number] [place] 00:00:00 00:00:00 [facility] 2022-02-16 2022-02-16 Refill Faustinella [facility] [id number] [place] 00:00:00 00:00:00 , Shade [facility]rish [facility] 2022-02-10 2022-02-10 [facility] [id number] [place] 09:13:18 23:59:00 Encounter DEYSI Mujica 2022-02-10 2022-02-10 [facility] [id number] [place] 09:00:00 23:59:00 Encounter Deysi [facility]rish [facility] 2022-02-10 2022-02-10 Outpatient [facility] [id number] [place] 00:00:00 00:00:00 [facility] 2022-02-03 2022-02-03 Emergency [facility] [id number] [place] 15:31:00 18:28:04 [facility] 2022-02-03 2022-02-03 Emergency [facility] [id number] [place] 15:31:00 18:28:04 [facility] 2022-02-03 2022-02-03 Emergency [facility] [id number] [place] 00:00:00 00:00:00 Health 2022-01-21 2022-01-21 Telephone Arin Ramirez [facility] 1.2. [id number] [place] 00:00:00 00:00:00 Arin Ramirez SE MED [id number] Health [place] 1 [id number] 2022-01-21 2022-01-21 Telephone Arin Ramirez [facility] 1.2. [id number] [id number] [place] 00:00:00 00:00:00 Arin Ramirez SE MED [id number] Health [place] 1 [id number] 2022-01-19 2022-01-19 Office Radha Magaña [facility] [id number] [place] 13:40:00 14:24:36 Visit Thalia Sutton [facility] 2022-01-19 2022-01-19 Office [facility] [id number] [place] 13:26:42 14:24:36 Visit THALIA Perze 2022-01-19 2022-01-19 Orders [facility] [id number] [place] 00:00:00 00:00:00 Only Thalia Mason [facility] 2022-01-19 2022-01-19 Orders [facility] [id number] [place] 00:00:00 00:00:00 Only Thalia Mason [facility] 2022-01-18 2022-01-18 Telephone JEEVAN Romero [id number] [place] 00:00:00 00:00:00 Teodoro ANDERSWKelle [id number] Health OD [id number] 2022-01-08 2022-01-08 Outpatient JOIE, [facility] [id number] [place] 00:00:00 00:00:00 [facility] 2022-01-06 2022-01-06 Office JEEVAN Romero [id number] [place] 11:00:00 12:19:59 Visit Teodoro DONOHUE [id number] [facility] [id number] 2021-12-15 2021-12-15 Emergency E ALCANTER, MHBL MHBL [id number] MHBL 08:06:00 15:30:00 JUVENTINO 2021-12-10 2021-12-10 [facility] [id number] [place] 00:00:00 00:00:00 [facility] 2021-12-09 2021-12-09 Outpatient [facility] [id number] [place] 00:00:00 00:00:00 [facility] 2021-12-09 2021-12-09 [facility]patient [facility] [id number] [place] 00:00:00 00:00:00 [facility] 2021-12-08 2021-12-08 Outpatient [facility] [id number] [place] 00:00:00 00:00:00 [facility] 2021-12-04 2021-12-04 [facility] [id number] [place] 23:59:00 23:59:00 Encounter [facility] 2021-12-04 2021-12-04 Hospital [facility] [id number] [place] 23:59:00 23:59:00 [facility] 2021-12-04 2021-12-04 [facility] [id number] [place] 00:00:00 00:00:00 [facility] 2021-12-04 2021-12-04 Outpatient [facility] [id number] [place] 00:00:00 00:00:00 [facility] 2021-12-02 2021-12-02 Outpatient [facility] [id number] [place] 00:00:00 00:00:00 [facility] 2021-11-30 2021-11-30 [facility] [id number] [place] 00:00:00 00:00:00 [facility] 2021-11-30 2021-11-30 [facility] [id number] [place] 00:00:00 00:00:00 [facility] 2021-11-27 2021-11-27 Office [facility] [id number] [place] 08:20:00 09:47:21 Visit Deysi kate 2021-11-27 2021-11-27 [facility] [id number] [place] 08:20:00 09:47:21 Visit Deysi kate 2021-11-27 2021-11-27 Orders Joie, [facility] [id number] [place] 00:00:00 00:00:00 Only Deysi kate 2021-11-27 2021-11-27 Orders Joie, [facility] [id number] [place] 00:00:00 00:00:00 Only Deysi kate 2021-11-13 2021-11-13 Emergency E SAMIR SANTOS BL [id number] BL 10:19:00 12:21:00 [facility] 2021-06-23 2021-06-23 Orders Joie, [facility] [id number] [place] 00:00:00 00:00:00 Only Health 2021-06-23 2021-06-23 Orders Joie, [facility] [id number] [place] 00:00:00 00:00:00 Only T [facility] 2020-07-02 2020-07-02 Office ROMULO Juan [facility] Encoun ter/ Legacy 00:00:00 00:00:00 Visit Sammie [id number] [facility] samantha [id number] Health 2020-07-02 2020-07-02 Office Sammie Juan Encounter/ Legacy 00:00:00 00:00:00 Visit Alexandra Nagel [id number] Communi [id number] Health 2020-06-23 2020-06-23 Office ROMULO Mcwilliams Encounter / Legacy 00:00:00 00:00:00 Visit Juany [id number] Co mmuni [id number] Health 2020-06-23 2020-06-23 [facility] Legacy 00:00:00 00:00:00 Visit Kiarra Silva [id number] Communi [id number] Health 2020-04-25 2020-04-25 Emergency E [facility]ON [facility] 7508 M[facility]W 14:34:00 16:16:00 ANDREA 2019-09-26 2019-09-26 Emergency E ADAM [facility] [id number] [facility] 16:11:00 21:45:00 MALIK 2019-05-24 2019-05-24 Inpatient E [facility] MED [id number] [facility] 04:42:00 04:42:00 2018-11-15 2018-11-15 Office Status, Fax ROMULO SEBASTIAN Encoun ter/ Legacy 00:00:00 00:00:00 Visit [id number] Com samantha [id number] ty Health 2018-11-10 2018-11-10 Office ROMULO Maldonado Encount er/ Legacy 00:00:00 00:00:00 Visit Clarissa [id number] Com samantha 098396 ty Health 2018-11-10 2018-11-10 Office Clarissa Maldonado Encounter/ Legacy 00:00:00 00:00:00 Visit Re Owen [id number] [facility] Mallory Esparza [id number] [facility] 2018-08-15 2018-08-15 Office Clarissa Maldonado [facility] Encounter/ Legacy 00:00:00 00:00:00 Visit Caren Beck [id number] Communi [id number] Health 2018-08-14 2018-08-14 Office ROMULO Duong Encounter/ Legacy 00:00:00 00:00:00 Visit Hoa [id number] Com samantha [id number] ty Health 2018-08-14 2018-08-14 Office ROMULO Duong Encounter/ Legacy 00:00:00 00:00:00 Visit Hoa [id number] Com samantha 413006 ty Health 2018-08-14 2018-08-14 Office ROMULO Duong Encounter/ Legacy 00:00:00 00:00:00 Visit Hoa [id number] Com samantha 290381 ty Health 2018-08-14 2018-08-14 Office Hoa Duong Enco unter/ Legacy 00:00:00 00:00:00 Visit Ragini Toro [id number] Communi 410106 ty Health 2018-07-11 2018-07-11 [facility] 00:00:00 00:00:00 Visit Caren Beck [id number] [facility] Lou Chwodh[place],, [place] 015889 ty Health 2018-07-06 2018-07-06 Office Joel [facility] Encount er/ Legacy 00:00:00 00:00:00 Visit Clarissa [id number] Com samantha [id number] ty Health 2018-07-04 2018-07-04 [facility] Legacy 00:00:00 00:00:00 Visit Radha Tom [id number] [facility] Casandra Kwan 005600 ty Health 2018-07-04 2018-07-04 Office Joel [facility] Encount er/ Legacy 00:00:00 00:00:00 Visit Clarissa [id number] Com samantha 140523 ty Health 2018-07-04 2018-07-04 Office Joel [facility] Encount er/ Legacy 00:00:00 00:00:00 Visit Clarissa [id number] Com samantha 742530 ty Health 2018-07-04 2018-07-04 Office Joel [facility] Encount er/ Legacy 00:00:00 00:00:00 Visit Clarissa [id number] Com samantha [id number] ty Health 2018-06-05 2018-06-05 [facility] Legacy 00:00:00 00:00:00 Visit Caren Beck [id number] Commun 946349 ty Health 2018-05-31 2018-05-31 Office [facility]/ Legacy 00:00:00 00:00:00 Visit Caren Beck [id number] Communi 401391 ty Health 2018-05-02 2018-05-02 Office Joel [facility] Encount er/ Legacy 00:00:00 00:00:00 Visit Clarissa [id number] Com samantha [id number] ty Health 2018-05-02 2018-05-02 [facility] 00:00:00 00:00:00 Visit Clarissa [id number] Com samantha [id number] Health 2018-03-27 2018-03-27 Office Eron [facility] Encount er/ Legacy 00:00:00 00:00:00 Visit Clarissa [id number] Com samantha [id number] Health 2018-03-27 2018-03-27 Office Eron [facility] Encount er/ Legacy 00:00:00 00:00:00 Visit Clarissa [id number] Com samantha [id number] Health 2018-03-27 2018-03-27 Office Eron [facility] Encount er/ Legacy 00:00:00 00:00:00 Visit Clarissa [id number] Com samantha [id number] Health 2018-03-27 2018-03-27 Office Eron [facility] Encount er/ Legacy 00:00:00 00:00:00 Visit Clarissa [id number] Com samantha [id number] Health 2018-01-25 2018-01-25 Office Eron [facility] Encount er/ Legacy 00:00:00 00:00:00 Visit Clarissa [id number] Com samantha [id number] Health 2018-01-25 2018-01-25 Office Eron [facility] Encount er/ Legacy 00:00:00 00:00:00 Visit Clarissa [id number] Com samantha [id number] Health 2018-01-25 2018-01-25 Office Eron [facility] Encount er/ Legacy 00:00:00 00:00:00 Visit Clarissa [id number] Com samantha [id number] Health 2018-01-25 2018-01-25 Office Eron [facility] Encount er/ Legacy 00:00:00 00:00:00 Visit Clarissa [id number] Com samantha [id number] ty Health 2017-12-12 2017-12-12 Office Eron [facility] Encount er/ Legacy 00:00:00 00:00:00 Visit Clarissa [id number] Com samantha [id number] ty Health 2017-12-10 2017-12-10 Office [facility] Encount er/ Legacy 00:00:00 00:00:00 Visit Clarissa [id number] Com samantha [id number] ty Health 2017-11-01 2017-11-01 Office Negro [facility] Encount er/ Legacy 00:00:00 00:00:00 Visit Radha [id number] Com samantha [id number] Health 2017-10-28 2017-10-28 Office [facility] Encount er/ Legacy 00:00:00 00:00:00 Visit Clarissa [id number] Com samantha [id number] ty Health 2017-10-28 2017-10-28 Office [facility] Encount er/ Legacy 00:00:00 00:00:00 Visit Clarissa [id number] Com samantha [id number] Health 2017-10-28 2017-10-28 [facility] 00:00:00 00:00:00 Visit Napoleon Ramirez [id number] 49 Communi [id number] Health 2017-10-28 2017-10-28 Office [facility] Encount er/ Legacy 00:00:00 00:00:00 Visit Clarissa [id number] Com samantha [id number] Health 2017-10-28 2017-10-28 Office [facility] Encount er/ Legacy 00:00:00 00:00:00 Visit Clarissa [id number] Com samantha [id number] Health 2017-10-28 2017-10-28 Office [facility] Encounter/ Legacy 00:00:00 00:00:00 Visit Ailyn Zavala [id number] 50 Communi Radha Tom [id number] ty Napoleon Ramirez FaQuazia 2017-08-11 2017-08-11 Office [facility] Encount er/ Legacy 00:00:00 00:00:00 Visit Clarissa [id number] Com samantha [id number] Health 2017-08-11 2017-08-11 Office [facility] Encount er/ Legacy 00:00:00 00:00:00 Visit Clarissa [id number] Com samantha [id number] Health 2017-08-09 2017-08-09 Office [facility] Legacy [facility]:00:00 00:00:00 Visit Krystina Morrow [id number] [address] [place], [place] [address]Reece Warren [id number] [facility] 2017-08-09 2017-08-09 Office [facility] Encount er/ Legacy 00:00:00 00:00:00 Visit Clarissa [id number] Com samantha [id number] Health 2017-08-06 2017-08-06 Office [facility] Encount er/ Legacy 00:00:00 00:00:00 Visit Clarissa [id number] Com samantha [id number] Health 2017-08-02 2017-08-02 [facility] Encount er/ Legacy 00:00:00 00:00:00 Visit Clarissa [id number] Com samantha [id number] Health 2017-08-02 2017-08-02 Office [facility] Encount er/ Legacy 00:00:00 00:00:00 Visit Clarissa [id number] Com samantha [id number] Health 2017-08-02 2017-08-02 Office [facility] Encounter/ Legacy 00:00:00 00:00:00 Visit Kiarra Aguirre [id number] [place] [address] [id number] Health 2017-07-30 2017-07-30 Office [facility] Encount er/ Legacy 00:00:00 00:00:00 Visit Clarissa [id number] Com samantha [id number] ty Health 2017-07-30 2017-07-30 Office [facility] Encount er/ Legacy 00:00:00 00:00:00 Visit Clarissa [id number] Com samantha [id number] ty Health 2017-07-30 2017-07-30 Office [facility] Encount er/ Legacy 00:00:00 00:00:00 Visit Clarissa [id number] Com samantha [id number] ty Health 2017-07-30 2017-07-30 Office [facility] Encount er/ Legacy 00:00:00 00:00:00 Visit Clarissa [id number] Com samantha 206703 ty Health 2017-07-30 2017-07-30 [facility] Legacy 00:00:00 00:00:00 Visit Radha Tom [id number] Timmy Hall 968422 ty Health 2017-06-29 2017-06-29 [facility] Legacy [facility]:00:00 00:00:00 Visit Clarissa [id number] Com samantha [id number] ty Health 2017-06-29 2017-06-29 Office [facility] Encount er/ Legacy 00:00:00 00:00:00 Visit Clarissa [id number] Com samantha 935136 ty Health 2017-06-29 2017-06-29 Office [facility] Encount er/ Legacy 00:00:00 00:00:00 Visit Clarissa [id number] Com samantha 525763 ty Health 2017-06-29 2017-06-29 [facility] Legacy [facility]:00 00:00:00 Visit Clarissa [id number] Com samantha [id number] ty Health 2017-06-26 2017-06-26 Office [facility] Encount er/ Legacy 00:00:00 00:00:00 Visit Clarissa [id number] Com samantha 938503 ty Health 2017-06-26 2017-06-26 Office [facility] Encount er/ Legacy 00:00:00 00:00:00 Visit Clarissa [id number] Com samantha 617409 ty Health 2017-06-08 2017-06-08 Office [facility] Encounter/ Legacy 00:00:00 00:00:00 Visit Kiarra Aguirre [id number] [address]45 0 ty Health 2017-06-03 2017-06-03 [facility] Encount er/ Legacy 00:00:00 00:00:00 Visit Clarissa [id number] Com samantha [id number] [facility] 2017-06-03 2017-06-03 [facility] Encount er/ Legacy 00:00:00 00:00:00 Visit Clarissa [id number] Com samantha [id number] Health 2017-05-06 2017-05-06 [facility] Encount er/ Legacy 00:00:00 00:00:00 Visit Clarissa [id number] Com samantha [id number] Health 2017-05-04 2017-05-04 [facility] Encount er/ Legacy 00:00:00 00:00:00 Visit Clarissa [id number] Com samantha [id number] Health 2017-05-01 2017-05-01 [facility] Encount er/ Legacy 00:00:00 00:00:00 Visit Clarissa [id number] Com samantha [id number] Health 2017-04-06 2017-04-06 [facility] Encount er/ Legacy 00:00:00 00:00:00 Visit Clarissa [id number] Com samantha [id number] Health 2017-04-04 2017-04-04 [facility] Encount er/ Legacy 00:00:00 00:00:00 Visit Clarissa [id number] Com samantha [id number] Health 2017-04-01 2017-04-01 [facility] Encount er/ Legacy 00:00:00 00:00:00 Visit Clarissa [id number] Com samantha [id number] Health 2017-03-06 2017-03-06 [facility] Encount er/ Legacy 00:00:00 00:00:00 Visit Clarissa [id number] Com samantha [id number] Health 2017-03-05 2017-03-05 [facility] Encount er/ Legacy 00:00:00 00:00:00 Visit Clarissa [id number] Com samantha [id number] ty Health 2017-02-27 2017-02-27 [facility] Encount er/ Legacy 00:00:00 00:00:00 Visit Clarissa [id number] Com samantha [id number] ty Health 2017-02-23 2017-02-23 [facility] Legacy [facility]:00:00 00:00:00 Visit Clarissa [id number] Com samantha [id number] ty Health 2017-01-30 2017-01-30 Office [facility] Encount er/ Legacy 00:00:00 00:00:00 Visit Clarissa [id number] Com samantha [id number] ty Health 2017-01-29 2017-01-29 Office [facility] Encount er/ Legacy 00:00:00 00:00:00 Visit Clarissa [id number] Com samantha [id number] ty Health 2016-12-20 2016-12-20 Office [facility] Encount er/ Legacy 00:00:00 00:00:00 Visit Clarissa [id number] Com samantha [id number] ty Health 2016-12-19 2016-12-19 [facility] Encount er/ Legacy 00:00:00 00:00:00 Visit Clarissa [id number] Com samantha 976348 ty Health 2016-12-16 2016-12-16 [facility] Legacy 00:00:00 00:00:00 Visit Kate [id number] Com samantha 663004 ty Health 2016-12-16 2016-12-16 Office [facility] Legacy 00:00:00 00:00:00 Visit Kate [id number] Com samantha 335489 ty Health 2016-12-16 2016-12-16 Office Kate Owen [facility] Enco unter/ Legacy 00:00:00 00:00:00 Visit Shikha Felton [id number] 065149 ty Health 2016-10-15 2016-10-15 Office [facility] En[facility]/ Legacy 00:00:00 00:00:00 Visit Kiarra Aguirre [id number] [facility] [place] [id number] Health 2016-08-14 2016-08-14 Office ROMULO Maldonado Encount er/ Legacy 00:00:00 00:00:00 Visit Clarissa [id number] Com samantha [id number] ty Health 2016-08-14 2016-08-14 Office Clarissa Maldonado [facility] Encounter/ Legacy 00:00:00 00:00:00 Visit Perry, Aura [id number] [facility] 513447 ty Health 2016-07-27 2016-07-27 Outpatient [facility] [id number] [place] 11:29:47 11:29:47 Health 2016-07-27 2016-07-27 Outpatient [facility] [id number] [place] 09:10:43 09:10:43 Health 2016-07-27 2016-07-27 Outpatient [facility] [id number] [place] 00:00:00 00:00:00 Health 2016-06-30 2016-06-30 Office [facility] Legacy 00:00:00 00:00:00 Visit Clarissa Maldonado [id number] [facility] Sabrina Boateng [id number] 0 Kristie Jordanis Sil 2016-06-30 2016-06-30 Office ROMULO Boateng [facility] Encounte r/ Legacy 00:00:00 00:00:00 Visit Sabrina [id number] Co mmuni 022354 ty Health 2016-06-16 2016-06-16 Office ROMULO Maldonado Encount er/ Legacy 00:00:00 00:00:00 Visit Clarissa [id number] Com samantha 782618 ty Health 2016-06-16 2016-06-16 Office ROMULO Maldonado Encount er/ Legacy 00:00:00 00:00:00 Visit Clarissa [id number] Com samantha 480969 ty Health 2016-06-16 2016-06-16 Office ROMULO Maldonado Encount er/ Legacy 00:00:00 00:00:00 Visit Clarissa [id number] Com samantha 075341 ty Health 2016-06-16 2016-06-16 Office Clarissa Maldonado [facility] Encounter/ Legacy 00:00:00 00:00:00 Visit Napoleon Ramirez [id number] [facility] [id number] [facility] 2016-06-16 2016-06-16 Office Joel [facility] Encount er/ Legacy 00:00:00 00:00:00 Visit Clarissa [id number] Com samantha [id number] [facility] 2016-06-16 2016-06-16 Office Clarissa Maldonado [facility] Encounter/ Legacy 00:00:00 00:00:00 Visit Radha Tom [id number] [facility] Napoleon Ramirez [id number] [facility] 2016-05-27 2016-05-27 Outpatient [facility] [id number] [place] 12:22:18 12:22:18 Health 2016-03-09 2016-03-09 Outpatient [facility] [id number] [place] 10:29:48 10:29:48 Health Results Test Description Test Time Test Comments Results Result Comments Source OPHTHALMOLOGY RETINAL SCAN 2022-05-18 13:55:20 Test Item Value Reference Range Interpretation Comme nts RETINAL SCAN-FINAL RESULT (test code = ALERT A 53369) Right Diabetic Retinopathy (test code = Mild A 084115) Right Macular Edema (test code = 20119) None Right Other Suspected Conditions (test None code = 06664) Right Image Quality (test code = 34753) Gradable Image Left Diabetic Retinopathy (test code = Mild A 86758) Left Macular Edema (test code = 69581) None Left Other Suspected Conditions (test None code = 99660) Left Image Quality (test code = 24147) Gradable Image DANIELA (test code = DANIELA) Retinal Study Result for la LARA 51 y/o, F (: 1970, )presented to [facility] on 05-18-2022 for a retinal imaging study of the left and right eyes. Based on the findings of the study, the following is recommended for ROSIO Welsh Pathology Found: Please advise the patient to return for another scan in 1 year. Interpreting Provider's Comments: No comments provided Right eye findings: Diabetic Retinopathy: MildNegative for Macular Edema Left eye findings: Diabetic Retinopathy: MildNegative for Macular Edema This result was electronically signed by Pollo Mendosa MD, , Taxonomy: [id number] on 05-18-2022 18:55 [facility]. NOTE: Any pathology noted on this diabetic retinal evaluation should be confirmed by an appropriate ophthalmic examination. Lab Interpretation (test code = 75607-4) Abnormal [facility] [id number] 12:27:55 Test Item Value Reference Range Interpretation Comments LVOT SV (test code 88.9 cm3 = 7992958678) LVOT SI (test code 46.83 ml/m2 = 74574406) LV EDV 2D (test 104.45 mL code = 7162185) LV ESV 2D (test 33.89 mL code = 4518193) LV ESV index 2D 18.22 ml/m2 (test code = 2488236224) LV EDV index 2D 56.14 ml/m2 (test code = 7519495702) IVSd (test code = 1.12 cm 0.6-0.9 2688093936) LVPWd (test code = 1.09 cm 7794025383) LVIDd (test code = 4.7 cm 3.8-5.2 0319828785) LVIDd index (test 25.5 ml/m2 2.3-3.1 code = 97669645) LVIDs (test code = 3.0 cm 2.2-3.5 3454674781) LVIDs index (test 15.9 ml/m2 1.3-2.3 code = 73969348) FS % (test code = 36.2 % See_Comment [Automate d 5206593067) message] The system which generated this result transmitted reference range : >18%. The reference range was not used to interpret this result as normal/abnormal . RWT (test code = 0.5 See_Comment [Automated 2452088332) message] The system which generated this result transmitted reference range : <=0.42. The reference range was not used to interpret this result as normal/abnormal . LVOT diam (test 2.2 cm code = 7208417114) LVOT area (test 3.80 cm2 code = 4486020298) LV mass (linear 192.2 g 67-162 method) (test code = 2879130792) LVMI (2D) (test 103.3 g/m2 44-88 code = 6010657150) MV E zev (test 83.06 cm/s code = 3047918038) MV A zev (test 84.36 cm/s code = 1806584024) MV E/A ratio (test 1.0 code = 6270958253) E/e' average (test 9.0 <14 code = 8154663022) LVOT peak zev 1.25 m/s (test code = 3251917220) LVOT mean grad 2.5 mmHg (test code = 3681819292) LVOT pk grad rest 6 mmHg (test code = 1562089214) LA AP dimension 3.2 cm <3.8 (ES) (test code = 8818763992) LA/Ao ratio (test 0.717264863459868 code = 7385608215) LVOT peak grad 6.2 mmHg (test code = 8730552997) LVOT VTI (test 23.4 cm code = 7171392813) LVOT SV index 46.8 mL/m2 (test code = 6791757561) LV RWT 2D (test 46.278757817227066 code = 6551686554) LV mass size 1 192.2 cm (test code = 4614606041) LVPWd (test code = 10.9 cm 0.6-0.9 4772648974) IVSd 2D (test code 11.217225747122186 = 0993792) cm Sinuses of 3.1 cm 3.6-3.6 Valsalva (test code = 4384785931) Sinus of Valsalva 31.14 cm (test code = 2935533503) RVOT VTI (test 20.5 cm code = 1066903763) TAPSE (test code = 2.9 cm See_Comment [Automat ed 2258441091) message] The system which generated this result transmitted reference range : >=1.7. The reference range was not used to interpret this result as normal/abnormal . IRIS (2D biplane) 15.529 mL/m2 9-33 (test code = 3300866606) PV mean grad (test 2.1 mmHg code = 3293356849) PV peak zev (test 95.92 cm/s code = 2093918810) PV peak grad (test 3.7 mmHg code = 1954766744) PV VTI (test code 21.244411298490264 = 1870974) cm RVOT mn grad (test 1.325440801885227 mmHg code = 7789913025) RVOT pk grad (test 3.2 mmHg code = 6451359355) PV mean zev (test 0.07 cm/s code = 7401191576) RVOT pk zev (test 0.90 mm/s code = 3065523723) [id number] (test 15.5 DS8UAXEOOE code = 7182986706) AV EROA cont eq 2.96 cm2 (test code = 8703686771) AV peak zev (test 1.47 m/s code = 9784845623) AV peak grad (test 8.6 mmHg code = 7755458586) AV mean grad (test 4.1 mmHg code = 4913863115) AV mean zev (test 0.9 m/sec code = 4206674141) AV VTI (test code 29.4 cm = 0995989887) RAUL VTI index 1.59 cm2/m2 (test code = 3674186483) RAUL VTI (test code 2.96 cm2 = 2771477487) RAUL peak zev (test 3.16 cm2 code = 5136929625) AV Doppler zev 0.85 index pk zev (test code = 6192346589) AV Doppler zev 0.80 index VTI (test code = 4092710943) AV zev ratio (test 0.85 AVRATIO code = 8889445661) A2CEF (test code = 66.7 % 1715511872) LV ESV index A2C 15.76 ml/m2 (test code = 8598370850) LV ESV A2C (test 29.32 mL code = 0871137201) LV EDV index A2C 47.33 ml/m2 (test code = 5325730316) Radiology Study observation (narrative) (test code = 82328-5) DANIELA (test code = DANIELA) Left Ventricle: [...] root for BSA at the sinuses of Valsalva.Pericardium No pericardial effusion.Study DetailsImage quality was adequate. A [...] 1.00The left ventricular wall motion is normal. [facility] [id number] 12:27:55 Test Item Value Reference Range Interpretation Comments LVOT SV (test code 88.9 cm3 = 7012464153) LVOT SI (test code 46.83 ml/m2 = 85835720) LV EDV 2D (test 104.45 mL code = 8365417) LV ESV 2D (test 33.89 mL code = 5334734) LV ESV index 2D 18.22 ml/m2 (test code = 6807989136) LV EDV index 2D 56.14 ml/m2 (test code = 0776634198) IVSd (test code = 1.12 cm 0.6-0.9 9540649241) LVPWd (test code = 1.09 cm 1369915542) LVIDd (test code = 4.7 cm 3.8-5.2 7028987050) LVIDd index (test 25.5 ml/m2 2.3-3.1 code = 05260266) LVIDs (test code = 3.0 cm 2.2-3.5 9735310422) LVIDs index (test 15.9 ml/m2 1.3-2.3 code = 36487475) FS % (test code = 36.2 % See_Comment [Automate d 9554602949) message] The system which generated this result transmitted reference range : >18%. The reference range was not used to interpret this result as normal/abnormal . RWT (test code = 0.5 See_Comment [Automated 7169805221) message] The system which generated this result transmitted reference range : <=0.42. The reference range was not used to interpret this result as normal/abnormal . LVOT diam (test 2.2 cm code = 8228842970) LVOT area (test 3.80 cm2 code = 1502495365) LV mass (linear 192.2 g 67-162 method) (test code = 3839028185) LVMI (2D) (test 103.3 g/m2 44-88 code = 0557543729) MV E zev (test 83.06 cm/s code = 7484178084) MV A zev (test 84.36 cm/s code = 7672306109) MV E/A ratio (test 1.0 code = 5739503514) E/e' average (test 9.0 <14 code = 5862025384) LVOT peak zev 1.25 m/s (test code = 9534823915) LVOT mean grad 2.5 mmHg (test code = 5727991882) LVOT pk grad rest 6 mmHg (test code = 3035783258) LA AP dimension 3.2 cm <3.8 (ES) (test code = 2341855291) LA/Ao ratio (test 0.543102950345539 code = 6275056608) LVOT peak grad 6.2 mmHg (test code = 2449287538) LVOT VTI (test 23.4 cm code = 8530199396) LVOT SV index 46.8 mL/m2 (test code = 4050691320) LV RWT 2D (test 46.730861234481495 code = 4462200334) LV mass size 1 192.2 cm (test code = 3191261255) LVPWd (test code = 10.9 cm 0.6-0.9 1095238064) IVSd 2D (test code 11.143796861199817 = 8788069) cm Sinuses of 3.1 cm 3.6-3.6 Valsalva (test code = 9183818906) Sinus of Valsalva 31.14 cm (test code = 6318010351) RVOT VTI (test 20.5 cm code = 3812434240) TAPSE (test code = 2.9 cm See_Comment [Automat ed 5428457491) message] The system which generated this result transmitted reference range : >=1.7. The reference range was not used to interpret this result as normal/abnormal . IRIS (2D biplane) 15.529 mL/m2 9-33 (test code = 2156490762) PV mean grad (test 2.1 mmHg code = 0939653323) PV peak zev (test 95.92 cm/s code = 0682472192) PV peak grad (test 3.7 mmHg code = 3143610787) PV VTI (test code 21.693698300066649 = 8175464) cm RVOT mn grad (test 1.169930534138306 mmHg code = 2348474158) RVOT pk grad (test 3.2 mmHg code = 2914927602) PV mean zev (test 0.07 cm/s code = 7796148398) RVOT pk zev (test 0.90 mm/s code = 1295647518) [id number] (test 15.5 SC4KEHKZUZ code = 6107097952) AV EROA cont eq 2.96 cm2 (test code = 8046665027) AV peak zev (test 1.47 m/s code = 7480843586) AV peak grad (test 8.6 mmHg code = 5569837937) AV mean grad (test 4.1 mmHg code = 1121992304) AV mean zev (test 0.9 m/sec code = 4978385841) AV VTI (test code 29.4 cm = 5381635013) RAUL VTI index 1.59 cm2/m2 (test code = 3767125663) RAUL VTI (test code 2.96 cm2 = 4410839642) RAUL peak zev (test 3.16 cm2 code = 7526470265) AV Doppler zev 0.85 index pk zev (test code = 0280446781) AV Doppler zev 0.80 index VTI (test code = 3866900367) AV zev ratio (test 0.85 AVRATIO code = 2885306881) A2CEF (test code = 66.7 % 3762945709) LV ESV index A2C 15.76 ml/m2 (test code = 4928135721) LV ESV A2C (test 29.32 mL code = 1255059673) LV EDV index A2C 47.33 ml/m2 (test code = 9370781176) Radiology Study observation (narrative) (test code = 16920-8) DANIELA (test code = DANIELA) Left Ventricle: [...] root for BSA at the sinuses of Valsalva.Pericardium No pericardial effusion.Study DetailsImage quality was adequate. A [...] 1.00The left ventricular wall motion is normal. [place] [id number] 15:41:1012 LEAD EKG FOR [facility] Test Date: [id number] Name: [facility] Department: 5520Patient ID: [id number] Room: Gender: F Baker Pie: [phone]: 1970 Requested By: NATALI SIDDIQUI Order Number: [id number] Reading MD: Lenny Farooq MeasurementsIntervals [place] Rate: 70 P: 61PR: 139 QRS: -28QRSD: 101 T: 45QT: 396 QTc: 416 Interpretive StatementsSINUS RHYTHMBORDERLINE LEFT AXIS DEVIATION [QRS AXIS < -20]VOLTAGE CRITERIA FOR LVH [MEETS CRITERIA IN ONE OF: R(aVL), S(V1), R(V5),R(V5/V6)+S(V1)]Electronically Signed On 02-04-2022 14:37:10 CDT by Lenny Jeter [id number] 15:41:1012 LEAD EKG FOR [facility] Test Date: [id number] Name: [facility] Department: 5520Patient ID: [id number] Room: Gender: F Baker Pie: [id number]: 1970 Requested By: NATALI SIDDIQUI Order Number: [id number] Reading MD: Lenny Farooq MeasurementsIntervals [place] Rate: 70 P: 61PR: 139 QRS: -28QRSD: 101 T: 45QT: 396 QTc: 416 Interpretive StatementsSINUS RHYTHMBORDERLINE LEFT AXIS DEVIATION [QRS AXIS < -20]VOLTAGE CRITERIA FOR LVH [MEETS CRITERIA IN ONE OF: R(aVL), S(V1), R(V5),R(V5/V6)+S(V1)]Electronically Signed On 02-04-2022 14:37:10 CDT by [facility] GLUCOSE POC docked [id number] 09:32:13 Test Item Value Reference Range Interpretation Comments Glucose POC (test code = 468 mg/dL 74-106 HH >40 0 mg/dL 02829127) Physician Notif ied Lab Interpretation (test Abnormal code = 45993-0) [facility] GLUCOSE POC docked [id number] 09:32:13 Test Item Value Reference Range Interpretation Comments Glucose POC (test code = 468 mg/dL 74-106 HH >40 0 mg/dL 76634910) Physician Notif ied Lab Interpretation (test Abnormal code = 68431-4) [facility] URINE DIPSTICK, WITHOUT [id number] 00:00:00 Test Item Value Reference Range Interpretation Comments Color POC (test code = Yellow See_Comment [Aut omated message] 96255) The system [employer] generated this result transmit tricia reference range : - - -. The referenc e range was not u sed to interpret th is result as normal/abnormal . Clarity POC (test code Clear See_Comment [Aut omated message] = 62047) The system [employer] generated this result transmit tricia reference range : - - -. The referenc e range was not u sed to interpret th is result as normal/abnormal . Glucose POC (test code 3+ Negative - Negative = 41699) Bilirubin POC (test Negative Negative - Negative code = 42895) Ketone POC (test code Negative Negative - Negative = 31936) Spec [place] POC (test 1.015 1.005-1.030 code = 8156) Blood POC (test code = Trace Negative - Negative 58507) pH POC (test code = 6.0 5.0-7.0 41674) Protein POC (test code Negative Negative - Negative = 03795) Urobilinogen POC (test <1.0 0.2-1.0 code = 81202) Nitrate POC (test code Negative Negative - Negative = 36632) Leukocyte POC (test Negative Negative - Negative code = 11141) [facility] RAPID [id number] 00:00:00 Test Item Value Reference Range Interpretation Comments Rapid HIV Result (test code = 06228) Negative Rapid HIV Control (test code = Pass 83239) [facility] URINE DIPSTICK, WITHOUT [id number] 00:00:00 Test Item Value Reference Range Interpretation Comments Color POC (test code = Yellow See_Comment [Aut omated message] 14161) The system [employer] generated this result transmit tricia reference range : - - -. The referenc e range was not u sed to interpret th is result as normal/abnormal . Clarity POC (test code Clear See_Comment [Aut omated message] = 44461) The system [employer] generated this result transmit tricia reference range : - - -. The referenc e range was not u sed to interpret th is result as normal/abnormal . Glucose POC (test code 3+ Negative - Negative = 70951) Bilirubin POC (test Negative Negative - Negative code = 53788) Ketone POC (test code Negative Negative - Negative = 68622) Spec [place] POC (test 1.015 1.005-1.030 code = 8156) Blood POC (test code = Trace Negative - Negative 79769) pH POC (test code = 6.0 5.0-7.0 59567) Protein POC (test code Negative Negative - Negative = 89643) Urobilinogen POC (test <1.0 0.2-1.0 code = 14358) Nitrate POC (test code Negative Negative - Negative = 88259) Leukocyte POC (test Negative Negative - Negative code = 33477) [facility] RAPID [id number] 00:00:00 Test Item Value Reference Range Interpretation Comments Rapid HIV Result (test code = 92151) Negative Rapid HIV Control (test code = Pass 80527) [facility], blood, as % of total [id number] 14:57:00 Test Item Value Reference Range Interpretation Comments hemoglobin A1C, blood, as % of total 10.9 % 4.8-5.6 H hemoglobin (test code = 4548-4) [facility] [id number] 14:57:00 Test Item Value Reference Range Interpretation Comments LDL cholesterol, serum (test TRIGHI mg/dL 0-99 code = 2089-1) [facility] low [facility] [id number] 14:57:00 Test Item Value Reference Range Interpretation Comments very low density lipoproteins VLDLCH mg/dL 5-40 (test code = 2091-7) [facility] HospitalHDL cholesterol, [id number] 14:57:00 Test Item Value Reference Range Interpretation Comments HDL cholesterol, serum (test code = 55 mg/dL >39 5-9) [facility] serum, [id number] 14:57:00 Test Item Value Reference Range Interpretation Comments triglyceride, serum, fasting (test 527 mg/dL 0-149 H code = 2571-8) [facility]cholesterol, [id number] 14:57:00 Test Item Value Reference Range Interpretation Comments cholesterol, serum (test code = 261 mg/dL 100-199 H 2093-3) [facility] Hospitalalanine aminotransferase (SGPT), [id number] 14:57:00 Test Item Value Reference Range Interpretation Comments alanine aminotransferase (SGPT), serum 25 1/L 0-32 (test code = 1742-6) [facility] Hospitalaspartate aminotransferase (SGOT), [id number] 14:57:00 Test Item Value Reference Range Interpretation Comments aspartate aminotransferase (SGOT), 19 1/L 0-40 serum (test code = 1920-8) [facility] Hospitalalkaline phosphatase, [id number] 14:57:00 Test Item Value Reference Range Interpretation Comments alkaline phosphatase, serum (test code 99 1/L 39-117 = 1783-0) [facility] Hospitalbilirubin, serum, [id number] 14:57:00 Test Item Value Reference Range Interpretation Comments bilirubin, serum, total (test code 0.3 mg/dL 0.0-1.2 = 1975-2) [facility] Hospitalalbumin/globulin ratio, [id number] 14:57:00 Test Item Value Reference Range Interpretation Comments albumin/globulin ratio, serum (test 1.7 1.2-2.2 code = 1759-0) [facility] Healthglobulin, [id number] 14:57:00 Test Item Value Reference Range Interpretation Comments globulin, serum (test code = 2336-6) 2.7 1.5-4.5 [facility] Healthalbumin, [id number] 14:57:00 Test Item Value Reference Range Interpretation Comments albumin, serum (test code = 1751-7) 4.5 g/dL 3.5-5.5 [facility] Hospitalprotein, total, [id number] 14:57:00 Test Item Value Reference Range Interpretation Comments protein, total, serum (test code = 7.2 g/dL 6.0-8.5 2885-2) [facility] Healthcalcium, [id number] 14:57:00 Test Item Value Reference Range Interpretation Comments calcium, serum (test code = 10.8 mg/dL 8.7-10.2 H 1999-8) [facility] Hospitalcarbon dioxide, venous [id number] 14:57:00 Test Item Value Reference Range Interpretation Comments carbon dioxide, venous blood (test 24 mmol/L -29 code = 7-1) [facility] Healthchloride, [id number] 14:57:00 Test Item Value Reference Range Interpretation Comments chloride, serum (test code = 91 mmol/L 96-106 L 2074-0) [facility] Healthpotassium, [id number] 14:57:00 Test Item Value Reference Range Interpretation Comments potassium, serum (test code = 4.9 mmol/L 3.5-5.2 2823-3) [facility] Hospitalsodium, [id number] 14:57:00 Test Item Value Reference Range Interpretation Comments sodium, serum (test code = 2951-2) 131 mmol/L 134-144 L [facility] Hospitalurea nitrogen/creatinine ratio, [id number] 14:57:00 Test Item Value Reference Range Interpretation Comments urea nitrogen/creatinine ratio, serum 13 9-23 (test code = 3097-3) [facility] HealtheGFR if Eyrcfjfn6467-81-77 14:57:00 Test Item Value Reference Range Interpretation Comments eGFR if 90 >59 (test code = 93658-3) mL/min/((173/100).m2) [facility] HospitalEstimated Glomerular Filtration Rate (calc)2018-07-04 14:57:00 Test Item Value Reference Range Interpretation Comments Estimated Glomerular 78 >59 Filtration Rate (calc) mL/min/((173/100).m2 (test code = 45214-6) ) [facility] Hospitalcreatinine, [id number] 14:57:00 Test Item Value Reference Range Interpretation Comments creatinine, serum (test code = 0.88 mg/dL 0.57-1.00 0-0) [facility] nitrogen, gqqvb1601-08-54 14:57:00 Test Item Value Reference Range Interpretation Comments urea nitrogen, blood (test code = 11 mg/dL 6-24 3094-0) [facility] Hospitalblood glucose, [id number] 14:57:00 Test Item Value Reference Range Interpretation Comments blood glucose, random (test code = 520 mg/dL 65-99 2339-0) [facility] Hospitalimmature granulocytes, percentage of total cells, blood 2018-07-04 14:57:00 Test Item Value Reference Range Interpretation Comments immature granulocytes, percentage of 0 % total cells, blood (test code = 46137-1) [facility] Hospitalbasophil count, [id number] 14:57:00 Test Item Value Reference Range Interpretation Comments basophil count, absolute (test 0.1 x10E3/uL 0.0-0.2 code = 53222-1) [facility] HospitalEosinophil Absolute [id number] 14:57:00 Test Item Value Reference Range Interpretation Comments Eosinophil Absolute Count (test 0.3 X10E3/UL 0.0-0.4 code = 75936-4) [facility] Hospitalmonocyte count, blood, tslmhucyo8757-20-99 14:57:00 Test Item Value Reference Range Interpretation Comments monocyte count, blood, automated 0.6 X10E3/UL 0.1-0.9 (test code = 742-7) [facility] Hospitallymphocyte count, blood, [id number] 14:57:00 Test Item Value Reference Range Interpretation Comments lymphocyte count, blood, 3.4 X10E3/UL 0.7-3.1 H automated (test code = 731-0) [facility] HospitalAbsolute Vmupstqcfpx1920-48-14 14:57:00 Test Item Value Reference Range Interpretation Comments Absolute Neutrophils (test code 7.5 X10E3/UL 1.4-7.0 H = 30887-4) [facility] Hospitalbasophils as percent of blood ozulrvpisl3769-65-52 14:57:00 Test Item Value Reference Range Interpretation Comments basophils as percent of blood 1 % leukocytes (test code = 707-0) [facility] Hospitaleosinophils as percent of blood floasptprx8839-09-67 14:57:00 Test Item Value Reference Range Interpretation Comments eosinophils as percent of blood 3 % leukocytes (test code = 713-8) [facility] Healthmonocytes as percent of blood rhtgvnpnhu1898-96-05 14:57:00 Test Item Value Reference Range Interpretation Comments monocytes as percent of blood 5 % leukocytes (test code = 5905-5) [facility] Hospitallymphocytes as percent of blood hguazzcgfv6599-01-35 14:57:00 Test Item Value Reference Range Interpretation Comments lymphocytes as percent of blood 28 % leukocytes (test code = 736-9) [facility] Healthneutrophils as percent of blood lvjnkfzlgr7239-99-68 14:57:00 Test Item Value Reference Range Interpretation Comments neutrophils as percent of blood 63 % leukocytes (test code = 770-8) [facility] Hospitalplatelet kjoul1001-77-24 14:57:00 Test Item Value Reference Range Interpretation Comments platelet count (test code = 410 X10E3/UL 150-379 H 777-3) [facility] Hospitalred blood cell distribution qdqnp2024-70-36 14:57:00 Test Item Value Reference Range Interpretation Comments red blood cell distribution width 14.7 % 12.3-15.4 (test code = 788-0) [facility] corpuscular hemoglobin concentration, [id number] 14:57:00 Test Item Value Reference Range Interpretation Comments mean corpuscular hemoglobin 33.0 G/DL 31.5-35.7 concentration, RBC (test code = 786-4) [facility] corpuscular hemoglobin, [id number] 14:57:00 Test Item Value Reference Range Interpretation Comments mean corpuscular hemoglobin, RBC 29.1 pg 26.6-33.0 (test code = 785-6) [facility] corpuscular volume, [id number] 14:57:00 Test Item Value Reference Range Interpretation Comments mean corpuscular volume, RBC (test code 88 fL 79-97 = 787-2) [facility] Hospitalhematocrit, nbkrb5958-90-74 14:57:00 Test Item Value Reference Range Interpretation Comments hematocrit, blood (test code = 4544-3) 41.2 % 34.0-46.6 [facility] Hospitalhemoglobin, [id number] 14:57:00 Test Item Value Reference Range Interpretation Comments hemoglobin, blood (test code = 13.6 g/dL 11.1-15.9 718-7) [facility] Hospitalerythrocyte (RBC) ioqwa3174-79-04 14:57:00 Test Item Value Reference Range Interpretation Comments erythrocyte (RBC) count (test 4.67 X10E6/UL 3.77-5.28 code = 789-8) [facility] Hospitalleukocyte count, rfyhc9954-29-35 14:57:00 Test Item Value Reference Range Interpretation Comments leukocyte count, blood (test 11.9 X10E3/UL 3.4-10.8 H code = 6690-2) [facility] HospitalNeisseria gonorrhoeae DNA [id number] 16:44:00 Test Item Value Reference Range Interpretation Comments Neisseria gonorrhoeae DNA probe NOT DETECTED NOT DETECTED N (test code = 80329-7) [facility] Hospitalchlamydia DNA gmghj6459-29-51 16:44:00 Test Item Value Reference Range Interpretation Comments chlamydia DNA probe (test code = NOT DETECTED NOT DETECTED N 27137-3) [facility] Hospitalrapid plasma reagin antibody, [id number] 13:17:00 Test Item Value Reference Range Interpretation Comments rapid plasma reagin antibody, NON-REACTIVE NON-REACTIVE N serum (test code = 5291-0) [facility] Hospitalhemoglobin A1C, blood, as % of total gtlhrbwhob4707-96-77 13:17:00 Test Item Value Reference Range Interpretation Comments hemoglobin A1C, blood, as 8.7 % OF TOTAL HGB <5.7 H % of total hemoglobin (test code = 4548-4) [facility] HospitalTSH (thyroid stimulating hormone) with reflex FT4 2017-07-30 13:17:00 Test Item Value Reference Range Interpretation Comments TSH (thyroid stimulating hormone) 1.30 mIU/L N with reflex FT4 (test code = 53379) [facility] HospitalHepatitis C Antibody, Signal to Vsv-Pba9574-62-02 13:17:00 Test Item Value Reference Range Interpretation Comments Hepatitis C Antibody, Signal to Cut-Off 0.01 <1.00 N (test code = 624884) [facility] Hospitalhepatitis C antibody, [id number] 13:17:00 Test Item Value Reference Range Interpretation Comments hepatitis C antibody, serum NON-REACTIVE NON-REACTIVE N (test code = 5199-5) [facility] Healthbasophils as percent of blood fbfbyiplfu6224-35-29 13:17:00 Test Item Value Reference Range Interpretation Comments basophils as percent of blood 0.9 % N leukocytes (test code = 707-0) [facility] Hospitaleosinophils as percent of blood veiqtbzixy3915-52-49 13:17:00 Test Item Value Reference Range Interpretation Comments eosinophils as percent of blood 3.1 % N leukocytes (test code = 714-6) [facility] Healthmonocytes as percent of blood kdwfhlardi1725-18-79 13:17:00 Test Item Value Reference Range Interpretation Comments monocytes as percent of blood 5.5 % N leukocytes (test code = 5905-5) [facility] Hospitallymphocytes as percent of blood bwagxufyyc3656-41-59 13:17:00 Test Item Value Reference Range Interpretation Comments lymphocytes as percent of blood 23.6 % N leukocytes (test code = 736-9) [facility] Hospitalneutrophils as percent of blood ynnnvtlpwt6917-71-47 13:17:00 Test Item Value Reference Range Interpretation Comments neutrophils as percent of blood 66.9 % N leukocytes (test code = 770-8) [facility] Hospitalbasophil count, [id number] 13:17:00 Test Item Value Reference Range Interpretation Comments basophil count, absolute (test 115 cells/uL 0-200 N code = 04241-6) [facility] HospitalAbsolute Eosinophil [id number] 13:17:00 Test Item Value Reference Range Interpretation Comments Absolute Eosinophil count (test 397 cells/mcL 15-500 N code = 75442-3) [facility] HospitalAbsolute Monocyte [id number] 13:17:00 Test Item Value Reference Range Interpretation Comments Absolute Monocyte count (test 704 cells/mcL 200-950 N code = 45367-1) [facility] Hospitallymphocytes, zibgmluq3481-25-80 13:17:00 Test Item Value Reference Range Interpretation Comments lymphocytes, absolute (test 3021 CELLS/UL 850-3900 N code = 48990-8) [facility] HospitalAbsolute Neutrophil znkvh8940-21-70 13:17:00 Test Item Value Reference Range Interpretation Comments Absolute Neutrophil count 8563 cells/mcL 2302-5385 H (test code = 81792-1) [facility] platelet [id number] 13:17:00 Test Item Value Reference Range Interpretation Comments mean platelet volume (test code = 10.3 fL 7.5-12.5 N 776-5) [facility] Hospitalplatelet [id number] 13:17:00 Test Item Value Reference Range Interpretation Comments platelet count (test code = 445 THOUSAND/UL 140-400 H 777-3) [facility] Hospitalred blood cell distribution brhhj9117-91-77 13:17:00 Test Item Value Reference Range Interpretation Comments red blood cell distribution width 15.5 % 11.0-15.0 H (test code = 788-0) [facility] corpuscular hemoglobin concentration, [id number] 13:17:00 Test Item Value Reference Range Interpretation Comments mean corpuscular hemoglobin 32.1 G/DL 32.0-36.0 N concentration, RBC (test code = 786-4) [facility] corpuscular hemoglobin, [id number] 13:17:00 Test Item Value Reference Range Interpretation Comments mean corpuscular hemoglobin, RBC 25.3 pg 27.0-33.0 L (test code = 785-6) [facility] corpuscular volume, [id number] 13:17:00 Test Item Value Reference Range Interpretation Comments mean corpuscular volume, RBC (test 78.7 fL 80.0-100.0 L code = 787-2) [facility] Hospitalhematocrit, dpfyc2436-93-57 13:17:00 Test Item Value Reference Range Interpretation Comments hematocrit, blood (test code = 4544-3) 35.8 % 35.0-45.0 N [facility] Hospitalhemoglobin, [id number] 13:17:00 Test Item Value Reference Range Interpretation Comments hemoglobin, blood (test code = 11.5 g/dL 11.7-15.5 L 718-7) [facility] Hospitalerythrocyte (RBC) zkkya2481-37-00 13:17:00 Test Item Value Reference Range Interpretation Comments erythrocyte (RBC) count (test 4.55 MILLION/UL 3.80-5.10 N code = 789-8) [facility] Hospitalleukocyte count, [id number] 13:17:00 Test Item Value Reference Range Interpretation Comments leukocyte count, blood (test 12.8 THOUSAND/UL 3.8-10.8 H code = 6690-2) [facility] Hospitalalanine aminotransferase (SGPT), kopff5399-69-87 13:17:00 Test Item Value Reference Range Interpretation Comments alanine aminotransferase (SGPT), serum 16 1/L 6-29 N (test code = 1742-6) [facility] Hospitalaspartate aminotransferase (SGOT), rxwba3874-51-09 13:17:00 Test Item Value Reference Range Interpretation Comments aspartate aminotransferase (SGOT), 14 1/L 10-35 N serum (test code = 1920-8) [facility] Hospitalalkaline phosphatase, [id number] 13:17:00 Test Item Value Reference Range Interpretation Comments alkaline phosphatase, serum (test code 72 1/L 33-115 N = 1783-0) [facility] Hospitalbilirubin, serum, [id number] 13:17:00 Test Item Value Reference Range Interpretation Comments bilirubin, serum, total (test code 0.2 mg/dL 0.2-1.2 N = 1975-2) [facility] Hospitalalbumin/globulin ratio, [id number] 13:17:00 Test Item Value Reference Range Interpretation Comments albumin/globulin ratio, serum 1.4 (calc) 1.0-2.5 N (test code = 1759-0) [facility] Hospitalglobulins, serum, gjdqy3662-48-92 13:17:00 Test Item Value Reference Range Interpretation Comments globulins, serum, total (test 2.9 G/DL (CALC) 1.9-3.7 N code = 2336-6) [facility] Hospitalalbumin, [id number] 13:17:00 Test Item Value Reference Range Interpretation Comments albumin, serum (test code = 1751-7) 4.0 g/dL 3.6-5.1 N [facility] Hospitalprotein, total, [id number] 13:17:00 Test Item Value Reference Range Interpretation Comments protein, total, serum (test code = 6.9 g/dL 6.1-8.1 N 2885-2) [facility] Hospitalcalcium, [id number] 13:17:00 Test Item Value Reference Range Interpretation Comments calcium, serum (test code = 1999-8) 9.8 mg/dL 8.6-10.2 N [facility] Hospitalcarbon dioxide, venous [id number] 13:17:00 Test Item Value Reference Range Interpretation Comments carbon dioxide, venous blood (test 22 mmol/L 20-31 N code = 2026-1) [facility] Healthchloride, [id number] 13:17:00 Test Item Value Reference Range Interpretation Comments chloride, serum (test code = 103 mmol/L 98-110 N 5-0) [facility] Hospitalpotassium, newan6678-56-86 13:17:00 Test Item Value Reference Range Interpretation Comments potassium, serum (test code = 4.6 mmol/L 3.5-5.3 N 3-3) [facility] Hospitalsodium, moknr9762-77-64 13:17:00 Test Item Value Reference Range Interpretation Comments sodium, serum (test code = 2951-2) 135 mmol/L 135-146 N [facility] Hospitalurea nitrogen/creatinine ratio, rxzgh0759-25-02 13:17:00 Test Item Value Reference Range Interpretation Comments urea NOT APPLICABLE (calc) 6-22 nitrogen/creatinine ratio, serum (test code = 3097-3) [facility] HealtheGFR if Kuzczgdd1965-20-22 13:17:00 Test Item Value Reference Range Interpretation Comments eGFR if 120 > OR = 60 N (test code = 98991-1) mL/min/((173/100).m2) [facility] HospitalEstimated Glomerular Filtration Rate (calc)2017-07-30 13:17:00 Test Item Value Reference Range Interpretation Comments Estimated Glomerular 104 > OR = 60 N Filtration Rate (calc) mL/min/((173/100).m2 (test code = 94030-0) ) [facility] Hospitalcreatinine, [id number] 13:17:00 Test Item Value Reference Range Interpretation Comments creatinine, serum (test code = 0.69 mg/dL 0.50-1.10 N 2160-0) [facility] Hospitalurea nitrogen, [id number] 13:17:00 Test Item Value Reference Range Interpretation Comments urea nitrogen, blood (test code = 10 mg/dL 7-25 N 3094-0) [facility] Hospitalblood glucose, [id number] 13:17:00 Test Item Value Reference Range Interpretation Comments blood glucose, random (test code = 180 mg/dL 65-99 H 2339-0) [facility] HospitalHIV-CMIA (Chemiluminescent Microparticle Immuno Assay) 2017-07-30 13:17:00 Test Item Value Reference Range Interpretation Comments HIV-CMIA (Chemiluminescent NON-REACTIVE NON-REACTIVE N Microparticle Immuno Assay) (test code = 573669) [facility] Healthcholesterol, non-HDL, [id number] 13:17:00 Test Item Value Reference Range Interpretation Comments cholesterol, non-HDL, total 176 MG/DL (CALC) <130 H (test code = 27258) [facility] Hospitalcholesterol/HDL ratio, serum, fazasrc7900-03-55 13:17:00 Test Item Value Reference Range Interpretation Comments cholesterol/HDL ratio, serum, 4.7 (calc) <5.0 N percent (test code = 2404) [facility] HospitalLDL cholesterol, [id number] 13:17:00 Test Item Value Reference Range Interpretation Comments LDL cholesterol, serum (test 133 MG/DL (CALC) H code = 2089-1) [facility] Hospitaltriglyceride, serum, [id number] 13:17:00 Test Item Value Reference Range Interpretation Comments triglyceride, serum, fasting (test 301 mg/dL <150 H code = 2571-8) [facility] HospitalHDL cholesterol, [id number] 13:17:00 Test Item Value Reference Range Interpretation Comments HDL cholesterol, serum (test code = 47 mg/dL >50 L 5-9) [facility] Hospitalcholesterol, [id number] 13:17:00 Test Item Value Reference Range Interpretation Comments cholesterol, serum (test code = 223 mg/dL <200 H 3-3) [facility] Hospitalthyroid stimulating hormone, [id number] 09:48:00 Test Item Value Reference Range Interpretation Comments thyroid stimulating hormone, 1.460 u[iU]/mL 0.450-4.500 serum (test code = 3016-3) [facility] Hospitalhemoglobin A1C, blood, as % of total qcktikgjwn5681-97-66 09:48:00 Test Item Value Reference Range Interpretation Comments hemoglobin A1C, blood, as % of total 9.4 % 4.8-5.6 H hemoglobin (test code = 4548-4) [facility] Hospitalmicroalbumin/creatinine ratio, [id number] 09:48:00 Test Item Value Reference Range Interpretation Comments microalbumin/creatinine 54.1 MG/G CREAT 0.0-30.0 H ratio, urine (test code = 93262-9) [facility] Hospitalmicroalbumin/total urine [id number] 09:48:00 Test Item Value Reference Range Interpretation Comments microalbumin/total urine volume 15.9 mg/L (test code = 49945-7) [facility] Hospitalcreatinine, random, aljlf5297-38-83 09:48:00 Test Item Value Reference Range Interpretation Comments creatinine, random, urine (test 29.4 mg/dL code = 2161-8) [facility] HospitalLDL cholesterol, [id number] 09:48:00 Test Item Value Reference Range Interpretation Comments LDL cholesterol, serum (test code = 111 mg/dL 0-99 H 2088-1) [facility] Hospitalvery low density qaevazlrjdyh6492-08-91 09:48:00 Test Item Value Reference Range Interpretation Comments very low density lipoproteins (test 63 mg/dL 5-40 H code = 2091-7) [facility] HospitalHDL cholesterol, [id number] 09:48:00 Test Item Value Reference Range Interpretation Comments HDL cholesterol, serum (test code = 45 mg/dL >39 2084-9) [facility] Hospitaltriglyceride, serum, [id number] 09:48:00 Test Item Value Reference Range Interpretation Comments triglyceride, serum, fasting (test 313 mg/dL 0-149 H code = 2571-8) [facility] Hospitalcholesterol, [id number] 09:48:00 Test Item Value Reference Range Interpretation Comments cholesterol, serum (test code = 219 mg/dL 100-199 H 2092-3) [facility] Hospitalalanine aminotransferase (SGPT), gkjzw2382-72-57 09:48:00 Test Item Value Reference Range Interpretation Comments alanine aminotransferase (SGPT), serum 23 1/L 0-32 (test code = 1742-6) [facility] Healthaspartate aminotransferase (SGOT), lmtsg4464-47-55 09:48:00 Test Item Value Reference Range Interpretation Comments aspartate aminotransferase (SGOT), 18 1/L 0-40 serum (test code = 1920-8) [facility] Hospitalalkaline phosphatase, [id number] 09:48:00 Test Item Value Reference Range Interpretation Comments alkaline phosphatase, serum (test code 86 1/L 39-117 = 1783-0) [facility] Hospitalbilirubin, serum, [id number] 09:48:00 Test Item Value Reference Range Interpretation Comments bilirubin, serum, total (test code <0.2 mg/dL 0.0-1.2 = 1975-2) [facility] Healthalbumin/globulin ratio, [id number] 09:48:00 Test Item Value Reference Range Interpretation Comments albumin/globulin ratio, serum (test 1.5 1.1-2.5 code = 1759-0) [facility] Healthglobulin, [id number] 09:48:00 Test Item Value Reference Range Interpretation Comments globulin, serum (test code = 2336-6) 2.9 1.5-4.5 [facility] Healthalbumin, [id number] 09:48:00 Test Item Value Reference Range Interpretation Comments albumin, serum (test code = 1751-7) 4.4 g/dL 3.5-5.5 [facility] Hospitalprotein, total, [id number] 09:48:00 Test Item Value Reference Range Interpretation Comments protein, total, serum (test code = 7.3 g/dL 6.0-8.5 2885-2) [facility] Hospitalcalcium, [id number] 09:48:00 Test Item Value Reference Range Interpretation Comments calcium, serum (test code = 10.0 mg/dL 8.7-10.2 1999-8) [facility] Hospitalcarbon dioxide, venous [id number] 09:48:00 Test Item Value Reference Range Interpretation Comments carbon dioxide, venous blood (test 19 mmol/L 18-29 code = 7-1) [facility] Hospitalchloride, [id number] 09:48:00 Test Item Value Reference Range Interpretation Comments chloride, serum (test code = 95 mmol/L 97-106 L 2075-0) [facility] Healthpotassium, [id number] 09:48:00 Test Item Value Reference Range Interpretation Comments potassium, serum (test code = 4.8 mmol/L 3.5-5.2 2823-3) [facility], [id number] 09:48:00 Test Item Value Reference Range Interpretation Comments sodium, serum (test code = 2951-2) 132 mmol/L 136-144 L [facility] nitrogen/creatinine ratio, [id number] 09:48:00 Test Item Value Reference Range Interpretation Comments urea nitrogen/creatinine ratio, serum 19 9-23 (test code = 3097-3) [facility] HealtheGFR if [id number] 09:48:00 Test Item Value Reference Range Interpretation Comments eGFR if 111 >59 (test code = 34288-7) mL/min/((173/100).m2) [facility] HospitalEstimated Glomerular Filtration Rate (calc)2016-06-16 09:48:00 Test Item Value Reference Range Interpretation Comments Estimated Glomerular 96 >59 Filtration Rate (calc) mL/min/((173/100).m2 (test code = 38638-5) ) [facility] Hospitalcreatinine, [id number] 09:48:00 Test Item Value Reference Range Interpretation Comments creatinine, serum (test code = 0.75 mg/dL 0.57-1.00 2160-0) [facility] nitrogen, [id number] 09:48:00 Test Item Value Reference Range Interpretation Comments urea nitrogen, blood (test code = 14 mg/dL 6-24 3094-0) [facility] glucose, [id number] 09:48:00 Test Item Value Reference Range Interpretation Comments blood glucose, random (test code = 345 mg/dL 65-99 H 2339-0) [facility] Hospitalimmature granulocytes, percentage of total cells, blood 2016-06-16 09:48:00 Test Item Value Reference Range Interpretation Comments immature granulocytes, percentage of 0 % total cells, blood (test code = 17472-0) [facility]basophil count, [id number] 09:48:00 Test Item Value Reference Range Interpretation Comments basophil count, absolute (test 0.1 x10E3/uL 0.0-0.2 code = 56675-3) [facility] HealthEosinophil Absolute [id number] 09:48:00 Test Item Value Reference Range Interpretation Comments Eosinophil Absolute Count (test 0.4 X10E3/UL 0.0-0.4 code = 28870-8) [facility] Healthmonocyte count, blood, [id number] 09:48:00 Test Item Value Reference Range Interpretation Comments monocyte count, blood, automated 0.5 X10E3/UL 0.1-0.9 (test code = 742-7) [facility]allymph[facility] count, blood, [id number] 09:48:00 Test Item Value Reference Range Interpretation Comments lymphocyte count, blood, 3.3 X10E3/UL 0.7-3.1 H automated (test code = 731-0) [facility] HospitalAbsolute [id number] 09:48:00 Test Item Value Reference Range Interpretation Comments Absolute Neutrophils (test code 7.2 X10E3/UL 1.4-7.0 H = 92465-5) [facility] Healthbasophils as percent of blood [id number] 09:48:00 Test Item Value Reference Range Interpretation Comments basophils as percent of blood 1 % leukocytes (test code = 707-0) [facility] Healtheosinophils as percent of blood [id number] 09:48:00 Test Item Value Reference Range Interpretation Comments eosinophils as percent of blood 3 % leukocytes (test code = 713-8) [facility] Healthmonocytes as percent of blood [id number] 09:48:00 Test Item Value Reference Range Interpretation Comments monocytes as percent of blood 4 % leukocytes (test code = 5905-5) [facility]allymphocytes as percent of blood [id number] 09:48:00 Test Item Value Reference Range Interpretation Comments lymphocytes as percent of blood 29 % leukocytes (test code = 736-9) [facility] Hospitalneutrophils as percent of blood [id number] 09:48:00 Test Item Value Reference Range Interpretation Comments neutrophils as percent of blood 63 % leukocytes (test code = 770-8) [facility] Hospitalplatelet [id number] 09:48:00 Test Item Value Reference Range Interpretation Comments platelet count (test code = 377 X10E3/UL 150-379 777-3) [facility] Hospitalred blood cell distribution [id number] 09:48:00 Test Item Value Reference Range Interpretation Comments red blood cell distribution width 14.5 % 12.3-15.4 (test code = 788-0) [facility] hemoglobin concentration, [id number] 09:48:00 Test Item Value Reference Range Interpretation Comments mean corpuscular hemoglobin 33.0 G/DL 31.5-35.7 concentration, RBC (test code = 786-4) [facility] corpuscular hemoglobin, [id number] 09:48:00 Test Item Value Reference Range Interpretation Comments mean corpuscular hemoglobin, RBC 29.1 pg 26.6-33.0 (test code = 785-6) [facility] corpuscular volume, [id number] 09:48:00 Test Item Value Reference Range Interpretation Comments mean corpuscular volume, RBC (test code 88 fL 79-97 = 787-2) [facility] Hospitalhematocrit, [id number] 09:48:00 Test Item Value Reference Range Interpretation Comments hematocrit, blood (test code = 4544-3) 41.5 % 34.0-46.6 [facility] Hospitalhemoglobin, [id number] 09:48:00 Test Item Value Reference Range Interpretation Comments hemoglobin, blood (test code = 13.7 g/dL 11.1-15.9 718-7) [facility] Hospitalerythrocyte (RBC) [id number] 09:48:00 Test Item Value Reference Range Interpretation Comments erythrocyte (RBC) count (test 4.70 X10E6/UL 3.77-5.28 code = 789-8) [facility] Hospitalleukocyte count, [id number] 09:48:00 Test Item Value Reference Range Interpretation Comments leukocyte count, blood (test 11.5 X10E3/UL 3.4-10.8 H code = 6690-2) [facility] Hospitalblood glucose, [id number] 08:28:26 Test Item Value Reference Range Interpretation Comments blood glucose, random (test code = 387 mg/dL 2339-0) [facility]
[2022-05-18 22:11] LABS: Arterial Blood Carboxyhemoglob 5.2 % (0-1.5); Blood Gas Oxyhemoglobin 92.1 % (94-97); Blood O2 Saturation 98.5 % (92-98.5)
[2022-05-18 22:21] LABS: Absolute Lymphocytes (CBC) 4.8 K/uL (0.7-4.9); Hematocrit 33.1 % (36.0-45.0); Lymphocytes % 39.8 % (15.3-44.8); MCV 91.5 fL (80-100); MPV 7.9 fL (7.6-11.3); RBC Red Blood Cell Count 3.61 M/uL (3.86-4.86)
[2022-05-18 22:38] LABS: Albumin 3.2 g/dL (3.4-5.0); Bilirubin Direct 0.1 mg/dL (0-0.2); Bilirubin Total 0.2 mg/dL (0.2-1.0); Magnesium 1.5 mg/dL (1.8-2.4); Potassium 3.8 mmol/L (3.5-5.1); Protein, Total 7.5 g/dL (6.4-8.2); Troponin High Sensitivity 13.2 pg/mL (<58.9)
[2022-05-18 22:42] LABS: Protime INR 1.01
--- NOTE | 2022-05-18 22:49 | RAD REPORT ---
EXAM DESCRIPTION: Joseph Single View05/18/2022 10:40 pm CLINICAL HISTORY: Shortness of breath COMPARISON: March 2022 FINDINGS: The lungs appear clear of acute infiltrate. The heart is normal size IMPRESSION: No acute abnormalities displayed
--- NOTE | 2022-05-19 00:38 | EDPHYS ---
Physician Documentation [facility] Name: Noy Lang Age: 51 yrs Sex: Female : 1970 Arrival Date: 05/18/2022 Time: 21:59 Bed 2 Private MD: ED Physician Bret Lloyd HPI: 05/18 22:18 This 51 yrs old Female presents to ER via EMS with complaints of shortness of breath. ms3 22:18 51-year-old female with past medical history of stage IV breast cancer, diabetes, ms3 hypertension, myocardial infarction presents via clued EMS for shortness of breath that began 10 minutes prior to arrival. Patient denies pain at this time. Patient denies alleviating or inciting factors.. 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 - Social history:: Smoking status: unknown. ROS: 22:18 Constitutional: Negative for fever, and chills. Neck: Negative for injury, pain, and ms3 swelling, Cardiovascular: Negative for chest pain, and palpitations. 22:18 Skin: Negative for injury, rash, and discoloration. 22:18 Respiratory: Positive for shortness of breath. 22:18 All other systems are negative. Exam: 22:03 ECG was reviewed by the Attending Physician. ms3 22:18 Constitutional: This is a well developed, well nourished patient who is awake, alert, ms3 and in no acute distress. Head/Face: Normocephalic, atraumatic. Neck: Trachea midline, no cervical lymphadenopathy. Supple, full range of motion without nuchal rigidity, or vertebral point tenderness. No Meningismus. Chest/axilla: Normal chest wall appearance and motion. Nontender with no deformity. Cardiovascular: Regular rate and rhythm with a normal S1 and S2. No gallops, murmurs, or rubs. Normal PMI, no JVD. No pulse deficits. Abdomen/GI: Soft, non-tender, with normal bowel sounds. No distension or tympany. No guarding or rebound. No evidence of tenderness throughout. 22:18 Respiratory: moderate respiratory distress is noted, Respirations: accessory muscle usage, Breath sounds: decreased breath sounds. 22:18 Skin: Appearance: Moisture: diaphoretic. Vital Signs: 22:00 BP 196 / 94; Pulse 108; Resp 24; Pulse Ox 100% on BiPAP; Weight 122.47 kg; kd3 22:06 BP 182 / 89; Pulse 98; Resp 16; Pulse Ox 100% on BiPAP; kd3 22:15 BP 197 / 82; Pulse 111; Resp 28; Pulse Ox 99% on BiPAP; Pain 0/10; aa9 22:30 BP 155 / 75; Pulse 89; Resp 20; Pulse Ox 99% on BiPAP; aa9 22:45 BP 148 / 78; Pulse 89; Resp 16 S; Pulse Ox 99% on BiPAP; aa9 23:00 BP 119 / 65; Pulse 78; Resp 17; Pulse Ox 97% on 4 lpm NC; aa9 23:15 BP 107 / 65; Pulse 75; Resp 17; Pulse Ox 96% on 4 lpm NC; Pain 0/10; aa9 MDM: 22:00 Patient medically screened. ms3 22:18 Differential diagnosis: CHF exacerbation, Myocardial Infarction pneumonia, pulmonary ms3 edema, Pulmonary Embolism. ED course: Discussed intubation and CPR with the patient. Patient states she does not want CPR performed or intubation. Patient is alert and oriented x4 at this time.. 05/19 00:37 ED course: Patient improved at this time, currently off of bipap and on NC at 4L. ms3 Patient is speaking in full sentences. Discussed admission with TAMMY Turner, and she accepts patient on behalf of Dr Owen.. 00:38 Data reviewed: vital signs, nurses notes, lab test result(s), EKG, radiologic studies, ms3 and as a result, I will admit patient. Data interpreted: ekg monitor: rate is 70 beats/min, rhythm is normal sinus rhythm, regular, with no ectopy, Interpretation: normal rate, normal rhythm. 05/18 22:03 Order name: Basic Metabolic Panel; Complete Time: 22:50 ms3 05/18 22:03 Order name: CBC with Diff; Complete Time: 22:50 ms3 05/18 22:03 Order name: LFT's; Complete Time: 22:50 ms3 05/18 22:03 Order name: Magnesium; Complete Time: 22:50 ms3 05/18 22:03 Order name: NT PRO-BNP; Complete Time: 22:50 ms3 05/18 22:03 Order name: PT-INR; Complete Time: 22:50 ms3 05/18 22:03 Order name: Troponin HS; Complete Time: 22:50 ms3 05/18 22:03 Order name: XRAY Chest (1 view); Complete Time: 01:30 ms3 05/18 22:03 Order name: CT Chest For PE Angio ms3 05/18 22:06 Order name: ABG; Complete Time: 22:50 ms3 05/18 22:06 Order name: BIPAP ms3 05/19 07:50 Order name: Glucose, Ancillary Testing EDMS 05/18 22:03 Order name: EKG; Complete Time: 22:04 ms3 05/18 22:03 Order name: Cardiac monitoring; Complete Time: 22:06 ms3 05/18 22:03 Order name: EKG - Nurse/Tech; Complete Time: 22:07 ms3 05/18 22:03 Order name: IV Saline Lock; Complete Time: 22:06 ms3 05/18 22:03 Order name: Labs collected and sent; Complete Time: 22:06 ms3 05/18 22:03 Order name: O2 Per Protocol; Complete Time: 22:06 ms3 05/18 22:03 Order name: O2 Sat Monitoring; Complete Time: 22:06 ms3 EC/20 22:03 Rate is 97 beats/min. Rhythm is regular. QRS [place] is Normal. Left axis deviation noted. ms3 CO interval is normal. QRS interval is normal. Clinical impression: Normal ECG. Interpreted by me. Reviewed by me. Administered Medications: 22:15 Drug: Zofran (Ondansetron) 4 mg Route: IVP; Site: left antecubital; kd3 Disposition: 05/19 00:37 Critical Care:. ms3 Disposition Summary: 05/19/22 00:36 Hospitalization Ordered Hospitalization Status: Inpatient Admission ms3 Provider: Tessa Owen ms3 Condition: Stable ms3 Problem: new ms3 Symptoms: have improved ms3 Bed/Room Type: Standard ms3 Location: [facility] ER HOLD(05/19/22 00:37) eb1 Room Assignment: ERHOLD-(05/19/22 00:37) eb1 Diagnosis - Congestive Heart Failure ms3 - Acute respiratory failure with hypoxia ms3 - Acute pulmonary edema ms3 Forms: - Medication Reconciliation Form ms3 - SBAR form ms3 Critical care time excluding procedures: 00:37 Critical care time: Bedside Care: 35 minutes, Consultation: 10 minutes, Family ms3 Intervention: 10 minutes. Total time: 55 minutes Signatures: Dispatcher [employer] EDSwetha Caceres, RN RN eb1 Bret Lloyd, DO ms3 Babs Alfonso RN RN kd3 More Gonzalez, PA-C PA-C sb4 Corrections: (The following items were deleted from the chart) 00:37 00:36 Telemetry/MedSurg (Inpatient) ms3 eb1 00:37 00:36 ms3 eb1
--- NOTE | 2022-05-19 00:38 | ER ---
Nurse's Notes [facility] Name: Noy Lang Age: 51 yrs Sex: Female : 1970 Arrival Date: 05/18/2022 Time: 21:59 Bed 2 Private MD: Diagnosis: Congestive Heart Failure;Acute respiratory failure with hypoxia;Acute pulmonary edema Presentation: 05/18 22:00 Chief complaint: EMS states: Pt with stage 4 cancer started feeling SOB, Pt manual kd3 blood pressure 250/110 via EMS. Pt placed on BiPAP on arrival. 20 G noted to the L a/c. Coronavirus screen: Vaccine status: Patient reports receiving the 2nd dose of the covid vaccine. Ebola Screen: No symptoms or risks identified at this time. Initial Sepsis Screen: Does the patient meet any 2 criteria? No. Patient's initial sepsis screen is negative. Does the patient have a suspected source of infection? No. Patient's initial sepsis screen is negative. Risk Assessment: Do you want to hurt yourself or someone else? Patient reports no desire to harm self or others. Onset of symptoms was May 18, 2022. 22:00 Method Of Arrival: EMS: [facility] kd3 22:00 Acuity: ARVIND 3 kd3 22:01 Note pt states she does not want intubation or CPR if her heart stops she consents to bb Bipap only. Triage Assessment: 22:04 General: Appears uncomfortable, Behavior is calm, cooperative. Pain: Denies pain. 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 - Social history:: Smoking status: unknown. Screenin: Abuse screen: Denies threats or abuse. Denies injuries from another. Nutritional aa9 screening: No deficits noted. Tuberculosis screening: No symptoms or risk factors identified. Fall Risk None identified. Assessment: 22:00 General: Dr. Lloyd at bedside, This RN witnessed discussion with patient regarding code kd3 status. Pt was asked if her heart were to stop, would she want CPR to be performed on her in an attempt to save her life. Pt was also asked, if she were to stop breathing, would she want to be intubated in an attempt to save her life. Pt does not want either life saving measures to be performed on her. pt would like DNR status and refuses both intubation and CPR. . 22:10 General: Appears distressed, uncomfortable, Behavior is cooperative, anxious. Neuro: aa9 Level of Consciousness is awake, alert, obeys commands, Oriented to person, place, time, situation. Cardiovascular:. Derm: Skin is clammy. 22:10 Respiratory: Reports shortness of breath at rest labored breathing Trachea midline aa9 Respiratory effort is even, labored, Respiratory pattern is tachypnea Patient placed on BiPAP:. 22:15 General: Dr Lloyd notified, See MAR for orders. Pain: Denies pain. GI: Pt is actively aa9 vomiting. 05/19 00:59 Reassessment: Patient and/or family updated on plan of care and expected duration. Pain aa9 level reassessed. Patient is alert, oriented x 3, equal unlabored respirations, skin warm/dry/pink. Respiratory: Trachea midline Respiratory effort is even, unlabored, Respiratory pattern is regular, symmetrical. Vital Signs: 05/18 22:00 BP 196 / 94; Pulse 108; Resp 24; Pulse Ox 100% on BiPAP; Weight 122.47 kg; kd3 22:06 BP 182 / 89; Pulse 98; Resp 16; Pulse Ox 100% on BiPAP; kd3 22:15 BP 197 / 82; Pulse 111; Resp 28; Pulse Ox 99% on BiPAP; Pain 0/10; aa9 22:30 BP 155 / 75; Pulse 89; Resp 20; Pulse Ox 99% on BiPAP; aa9 22:45 BP 148 / 78; Pulse 89; Resp 16 S; Pulse Ox 99% on BiPAP; aa9 23:00 BP 119 / 65; Pulse 78; Resp 17; Pulse Ox 97% on 4 lpm NC; aa9 23:15 BP 107 / 65; Pulse 75; Resp 17; Pulse Ox 96% on 4 lpm NC; Pain 0/10; aa9 ED Course: 21:59 Patient arrived in ED. as6 22:00 Bret Lloyd DO is Attending Physician. ms3 22:02 Triage completed. kd3 22:04 Arm band placed on left wrist. kd3 22:25 Patient has correct armband on for positive identification. Bed in low position. Call aa9 light in reach. Side rails up X2. 22:42 XRAY Chest (1 view) In Process Unspecified. EDMS 23:42 Renetta Diaz, RN is Primary Nurse. aa9 23:52 CT Chest For PE Angio In Process Unspecified. EDMS 05/19 00:20 Assisted to bedside commode. aa9 00:35 Tessa Owen MD is Hospitalizing Provider. ms3 Administered Medications: 05/18 22:15 Drug: Zofran (Ondansetron) 4 mg Route: IVP; Site: left antecubital; kd3 Outcome: 05/19 00:36 Decision to Hospitalize by Provider. ms3 08:29 Patient left the ED. ss Signatures: Dispatcher [employer] EDMS Noy Lopez RN RN Tanna Galindo RN RN ss Brte Lloyd DO DO ms3 Renzo Rizzo, LISET HUTCHINS as6 Babs Alfonso RN RN kd3 Renetta Diaz, RN RN aa9 Corrections: (The following items were deleted from the chart) 05/18 22:25 22:10 Respiratory: Patient placed CPAP: aa9 aa9 22:42 22:10 Respiratory: Patient placed on BiPAP: aa9 aa9
--- NOTE | 2022-05-19 01:32 | P.HP ---
Certification for Inpatient Patient admitted to: Inpatient With expected LOS: <2 Midnights Patient will require the following post-hospital care: None Practitioner: I am a practitioner with admitting privileges, knowledge of patient current condition, hospital course, and medical plan of care. Services: Services provided to patient in accordance with Admission requirements found in Title 42 Section 412.3 of the Code of Federal Regulations Patient History Date of Service: 05/19/22 Reason for admission: Acute Respiratory Failure History of Present Illness: Patient is a 51 year-old female with history of stage 4 breast cancer on chemotherapy, chronic CHF, CAD, and IDDM who presented to the ED via EMS after sudden onset of shortness of breath. She was saturating 63% RA when EMS arrived with a BP of 250/110. She was immediately put on bipap upon arrival to ED. ABG showed pH 7.24, pCO2 52, pO2 169, HCO3 21.6. Chest CT angio showed "No pulmonary embolism. Mild pulmonary edema and trace bilateral pleural effusions. Multivessel coronary artery calcifications, greatest in the LAD." After about 30 minutes of bipap, she significantly improved and was transitioned to nasal cannula. Patient has clearly stated her wishes that she does not wish to be intubated or have CPR performed on her. She is additionally considering terminating chemotherapy and going on hospice. Patient is admitted for further management. Allergies No Known Allergies Allergy (Unverified 05/19/22 03:37) Home medications list reviewed: Yes - Past Medical/Surgical History Diabetic: Yes -: Stage 4 Breast Cancer with metastases -: Type 2 Diabetes, Insulin-Dependent -: CHF -: CAD -: Hypertension -: Stents Psychosocial/ Personal History: Patient lives at home. - Family History Family History: Reviewed- Non-Contributory - Social History Smoking Status: Current every day smoker Alcohol use: No CD- Drugs: No Caffeine use: Yes Place of Residence: Home Review of Systems General: Sweats Respiratory: Shortness of Breath Physical Examination - Physical Exam General: Alert, In no apparent distress HEENT: Atraumatic, PERRLA, EOMI, Sclerae nonicteric Neck: Supple, 2+ carotid pulse no bruit, No LAD, Without JVD or thyroid abnormality Respiratory: Crackles/rales Cardiovascular: Regular rate/rhythm, Normal S1 S2 Gastrointestinal: Normal bowel sounds, No tenderness Musculoskeletal: No tenderness Integumentary: No rashes Neurological: Normal speech, Normal strength at 5/5 x4 extr, Normal tone, Normal affect - Studies Laboratory Data (last 24 hrs) 05/18/22 22:08: PT 11.1, INR 1.01 05/18/22 22:08: WBC 12.10 H, Hgb 11.4 L, Hct 33.1 L, Plt Count 503 H 05/18/22 22:08: Sodium 134 L, Potassium 3.8, BUN 16, Creatinine 1.08, Glucose 391 H, Magnesium 1.5 L, Total Bilirubin 0.2, AST 100 H, ALT 70, Alkaline Phosphatase 134 H Assessment and Plan - Problems (Diagnosis) (1) Flash pulmonary edema Current Visit: Yes Status: Acute (2) CHF (congestive heart failure) Current Visit: Yes Status: Acute Qualifiers: Heart failure type: unspecified Heart failure chronicity: acute on chronic Qualified Code(s): I50.9 - Heart failure, unspecified (3) Breast cancer, stage 4 Current Visit: Yes Status: Acute Qualifiers: Laterality: unspecified laterality Qualified Code(s): C50.919 - Malignant neoplasm of unspecified site of unspecified female breast (4) Type 2 diabetes mellitus Current Visit: Yes Status: Chronic Qualifiers: Diabetes mellitus mcfp insulin 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 transplanted heart: [place] heart Associated angina: without angina Qualified Code(s): I25.10 - Atherosclerotic heart disease of [place] coronary artery without angina pectoris - Plan -Patient reports that she did not take her lasix today. Sudden onset SHOB with malignant hypertension could be secondary to flash pulmonary edema as chest CT shows mild pulmonary edema and trace bilateral pleural effusions -Cardiology consult. Echo ordered. Verify home lasix dose and restart -environmental services aide consult as patient is considering terminating chemotherapy and going on hospice -ACHS accu checks with moderate sliding scale and diabetic diet. A1C pending -Pain control as needed -Continue supplemental O2. Wean as tolerated. -Monitor and replete electrolytes per protocol -Reconcile and continue home medications -Lovenox for VTE prophylaxis -DNR: patient has stated very clearly that she does not want CPR or intubation. Bipap is the furthest she is willing to escalate care. Discharge Plan: Home Plan to discharge in: Greater than 2 days - Advance Directives Does patient have a Living Will: No Does patient have a Durable POA for Healthcare: No - Code Status/Comfort Care Code Status Assessed: Yes (Full) Critical Care: No Time Spent Managing Pts Care (In Minutes): 50
[2022-05-19] MEDS ORDERED: ACETAMINOPHEN 500 MG TAB PO PRN ×2 (03:37→06:34)
[2022-05-19] MEDS ORDERED: ONDANSETRON 4 MG/2 ML VIAL IV PRN (03:37)
[2022-05-19] MEDS ORDERED: ALBUTEROL 2.5 MG/3 ML NEB SOL NEB PRN (03:37)
[2022-05-19] MEDS ORDERED: MORPHINE 4 MG/ML SYR IV PRN (04:51)
[2022-05-19 04:58] VITALS: BMI 46.3
[2022-05-19 05:00] VITALS: TEMP 97.8
[2022-05-19] MEDS ORDERED: NICOTINE 21 MG/PAT TD ONE ×2 (05:00→05:36)
[2022-05-19] MEDS ORDERED: MORPHINE 4 MG/ML SYR ONE (06:33)
[2022-05-19] MEDS ORDERED: ACETAMINOPHEN 500 MG TAB ONE (07:18)
[2022-05-19] MEDS ORDERED: INSULIN -REGULAR HUMAN 50 UNIT/0.5 ML ML SQ SCH ×2 (07:30)
--- NOTE | 2022-05-19 07:44 | P.DS ---
Discharge Date: 05/19/22 Disposition: ROUTINE DISCHARGE Discharge Condition: GOOD Reason for Admission: Acute Respiratory Failure Brief History of Present Illness: Patient is a 51 year-old female with history of stage 4 breast cancer on chemotherapy, chronic CHF, CAD, and IDDM who presented to the ED via EMS after sudden onset of shortness of breath. She was saturating 63% RA when EMS arrived with a BP of 250/110. She was immediately put on bipap upon arrival to ED. ABG showed pH 7.24, pCO2 52, pO2 169, HCO3 21.6. Chest CT angio showed "No pulmonary embolism. Mild pulmonary edema and trace bilateral pleural effusions. Multivessel coronary artery calcifications, greatest in the LAD." After about 30 minutes of bipap, she significantly improved and was transitioned to nasal cannula. Patient has clearly stated her wishes that she does not wish to be in tubated or have CPR performed on her. She is additionally considering terminating chemotherapy and going on hospice. Patient is admitted for further management. Hospital Course: Patient is doing well and she denies any new complaints. She is wanting to go home. Her room air O2 sats are 98%. She had an echo done at [facility] which was normal. She is stable for discharge with outpatient follow-up. She is advised to continue taking her home medications. Vital Signs/Physical Exam: Temp Pulse Resp BP Pulse Ox 97.8 F 86 16 99 05/19/22 04:00 05/19/22 04:00 05/19/22 04:00 05/19/22 04:00 General: Alert, In no apparent distress, Oriented x3 Laboratory Data at Discharge: WBC 12.10 K/uL (4.3-10.9) H 05/18/22 22:08 Hgb 11.4 g/dL (12.0-15.0) L 05/18/22 22:08 Hct 33.1 % (36.0-45.0) L 05/18/22 22:08 Plt Count 503 K/uL (152-406) H 05/18/22 22:08 PT 11.1 SECONDS (9.5-12.5) 05/18/22 22:08 INR 1.01 05/18/22 22:08 Sodium 134 mmol/L (136-145) L 05/18/22 22:08 Potassium 3.8 mmol/L (3.5-5.1) 05/18/22 22:08 BUN 16 mg/dL (7-18) 05/18/22 22:08 Creatinine 1.08 mg/dL (0.55-1.3) 05/18/22 22:08 Glucose 391 mg/dL (74-106) H 05/18/22 22:08 Magnesium 1.5 mg/dL (1.8-2.4) L 05/18/22 22:08 Total Bilirubin 0.2 mg/dL (0.2-1.0) 05/18/22 22:08 AST 100 U/L (15-37) H 05/18/22 22:08 ALT 70 U/L (12-78) 05/18/22 22:08 Alkaline Phosphatase 134 U/L (45-117) H 05/18/22 22:08 Physician Discharge Instructions: -DC IV and DC home -Continue with home medications -Follow-up with PCP in 1 to 2 weeks -Follow-up with Cardiology in 1 to 2 weeks -Please call Dr. Owen at [phone] if any questions regarding hospital stay -Please call nursing station at [phone] if any nursing or medication questions -Return to the emergency room if symptoms worsen Diet: AHA Activity: Fall precautions Followup: Unknown,U [Primary Care Provider] - Time spent managing pt's care (in minutes): 25
[2022-05-19] MEDS ORDERED: ONDANSETRON 4 MG/2 ML VIAL IV ONE (07:51)
[2022-05-19] MEDS ORDERED: clonazePAM 0.5 MG TAB PO ONE (07:52)
[2022-05-19] MEDS ORDERED: ENOXAPARIN 40 MG/0.4 ML SQ SCH (09:00)
--- NOTE | 2022-05-19 12:47 | EKG ---
Test Date: 2022-05-18 Test Time: 22:03:19 Education Supervisor: SHANTE MEASUREMENT RESULTS: Intervals: Rate: 97 NC: 150 QRSD: 92 QT: 376 QTc: 477 [place]: P: 66 NC: 150 QRS: -40 T: 91 INTERPRETIVE STATEMENTS: Normal sinus rhythm Left axis deviation Voltage criteria for left ventricular hypertrophy T wave abnormality, consider lateral ischemia Abnormal ECG Compared to ECG 04/26/2022 23:05:34 T-wave abnormality now present Possible ischemia now present Incomplete right bundle-branch block no longer present Myocardial infarct finding no longer present Electronically Signed On 05-19-22 12:46:34 CDT by Tr Victor
--- NOTE | 2022-05-19 21:40 | CON ---
Date of Consultation: 05/19/[address] Owen with shortness of breath on 05/19/2022. Reason For Consultation: Shortness of breath. History Of Present Illness: Ms. Lang is a 51-year-old woman with recent diagnosis of what sound li ke gastric cancer who just started chemotherapy. She has had a history of hypertension, diabetes, co ronary artery disease with stents in the past. She came in with shortness of breath that was resolve d by the time I saw her after some Lasix. Troponin, D-dimer, and BNP were all normal . Past Medical History: Review of Systems: Negative. Social History: Negative. Family History: Negative. Medications: Neurontin, metformin, and metoprolol. Physical Examination: Neck: Supple with no bruit. Chest: Clear. Cardiac: Normal rhythm. No murmurs, gallops, or rubs. Abdomen: Benign. Extremities: No clubbing, cyanosis, or edema. Diagnostic Data: All within normal limits. Impression And Plan: Shortness of breath, possibly diastolic congestive heart failure, acute, resolv ed. The patient agrees to come to the office and have an outpatient echocardiogram and a stress test . I would agree with her present regimen at home except I would add a low-dose Lasix. Her other pro blems that include diabetes, hypertension, coronary artery disease status post percutaneous coronary intervention are stable. Case was discussed with Dr. Owen. BENJAMIN/MATT Voice ID: [id number] Report ID: [id number]
[2022-05-20] MEDS ORDERED: NICOTINE 21 MG/PAT TD SCH (09:00)
--- NOTE | 2022-05-20 11:49 | RAD REPORT ---
EXAM DESCRIPTION: CT - Chest For Pe Angio - 05/18/2022 11:50 pm CLINICAL HISTORY: The patient is 51 years old and is Female; shortness of breath TECHNIQUE: Axial computed tomographic angiography images of the chest with intravenous contrast. S agittal and coronal reformatted images were created and reviewed. This CT exam was performed using one or more of the following dose reduction techniques: automated exposure control, adjustment of t he mA and/or kV according to patient size, and/or use of iterative reconstruction technique. MIP reconstructed images were created and reviewed. COMPARISON: No relevant prior studies available. FINDINGS: PULMONARY ARTERIES: No pulmonary embolism. AORTA: No thoracic aortic aneurysm. LUNGS: See below. PLEURAL SPACE: Trace bilateral pleural effusions, right larger than left, with passive right basila r subsegmental atelectasis. Bilateral, basilar predominant smooth interseptal thickening and groundgl ass opacities, favoring mild pulmonary edema. No pneumothorax. HEART: Multivessel coronary artery calcifications, greatest in the LAD. No significant pericardial effusion. No evidence of RV dysfunction. BONES/JOINTS: No acute fracture. No dislocation. SOFT TISSUES: Unremarkable. LYMPH NODES: Unremarkable. No enlarged lymph nodes. IMPRESSION: 1. No pulmonary embolism. 2. Mild pulmonary edema and trace bilateral pleural effusions. 3. Multivessel coronary artery calcifications, greatest in the LAD. Electronically signed by: Juni Iqbal MD 05/19/2022 12:16 AM CDT Due to temporary technical issues with the PACS/Fluency reporting system, reports are being signed by the in house radiologists without review as a courtesy to insure prompt reporting. The interpreting radiologist is fully responsible for the content of the report.
[2022-05-20 15:00] VITALS: BP 107/65; O2SAT 96
== END 2022-05-19 08:22 | disposition home or self-care (01) | DRG 291 ==
LOC: ER 21:54 → ERHOLD 05-19 01:51
PROVIDERS: ADMIT Hospitalist; ATTEND Hospitalist
PROC: 5A09357 Assistance with Respiratory Ventilation, Less than 24 Consecutive Hours, Continuous Positive Airway Pressure (ICD-10-PCS; principal; 2022-05-19)
DX: I11.0 Hypertensive heart disease with heart failure (principal); J96.01 Acute respiratory failure with hypoxia; I50.33 Acute on chronic diastolic (congestive) heart failure; E11.65 Type 2 diabetes mellitus with hyperglycemia; I25.10 Atherosclerotic heart disease of native coronary artery without angina pectoris; C50.919 Malignant neoplasm of unspecified site of unspecified female breast; F17.200 Nicotine dependence, unspecified, uncomplicated; I25.2 Old myocardial infarction; Z66 Do not resuscitate; Z79.4 Long term (current) use of insulin; Z95.5 Presence of coronary angioplasty implant and graft; Z79.84 Long term (current) use of oral hypoglycemic drugs; Z85.43 Personal history of malignant neoplasm of ovary; Z85.42 Personal history of malignant neoplasm of other parts of uterus; Z79.899 Other long term (current) drug therapy
CPT/HCPCS: 36415; 71045; 71275; 80048; 80076; 82805; 82947; 83735; 83880; 84484; 85025; 85610; 93005; 94660; 94760; J2405; Q9967

== ENCOUNTER 2022-06-16 21:13 | Emergency (ER) | payer BC ==
--- OUTSIDE RECORDS SUMMARY | 2022-06-16 21:24 | XMS REPORT | Continuity of Care Document ---
:1970 Author Organization [facility] t Address [address] [place] [address] Care Team Providers Name Role Phone None, None Primary Care Physician Unavailable POLLY WARREN Attending Clinician Unavailable ZOIE MUNSON Attending Clinician Unavailable THALIA SUTTON Attending Clinician Unavailable Yann Anthony MD Attending Clinician YANN ANTHONY Attending Clinician Unavailable Paul Novoa MD Attending Clinician MARY BLEVINS Attending Clinician Unavailable Mary Blevins MD Attending Clinician Milagro Bautista Attending Clinician [phone] Marion Nathan MD Attending Clinician MARION NATHAN Attending Clinician Unavailable Alexia Del Valle Attending Clinician Unavailable Maine Jamel Regalado Attending Clinician Unavailable JAMEL GROVE Attending Clinician Unavailable GC_SEFP_Rivera_A Attending Clinician Unavailable ADRIANA HUMPHREY Attending Clinician Unavailable BLAYNE ROBBINS Attending Clinician Unavailable Kiarra Ramos RN Attending Clinician Unavailable Rosendo HATCH, Blayne B Attending Clinician Claudia ResidentMD, Patricia Sanford Attending Clinician + Briana ResidentMD, Polly M Attending Clinician + Clarissa Roberson MD Attending Clinician + Jen Orta MD Attending Clinician + Anitra Murillo RN Attending Clinician Unavailable Guy ResidentMD, Brayan M Attending Clinician + GIBSON DAY Attending Clinician Unavailable LAVERNE BURGOS Attending Clinician Unavailable Mahesh ResidentMD, Gibson Attending Clinician + Jessica Liriano Attending Clinician Unavailable Gonzalo ResidentMD, Anna S Attending Clinician + Isidro ResidentMD, Thomas Mason Attending Clinician [phone] Yojana ResidentMD, Cammy Harrison Attending Clinician + Gibson Day MD Attending Clinician + CLARISSA ROBERSON Attending Clinician Unavailable [facility] Attending Clinician Unavailable Steve HATCH, Danielle Attending Clinician Sweetie Grimes MD Attending Clinician Elijah Lewis LVN Attending Clinician Unavailable Deysi Salter NP Attending Clinician Dov HATCH, Jamari S Attending Clinician + Shade May MD Attending Clinician + Radha Ambrosio MD Attending Clinician Thalia Meehan Attending Clinician + Yodit Keith Attending Clinician + SWEETIE GRIMES Attending Clinician Unavailable Pricilla Chong RN Attending Clinician Unavailable DEYSI SALTER Attending Clinician Unavailable Arin Ramirez RN Attending Clinician Unavailable Radha Magaña DO Attending Clinician Teodoro Romero CNM Attending Clinician JUVENTINO LAGOS Attending Clinician Unavailable QING DAWSON Attending Clinician Unavailable Joie HATCH, Argenis T Attending Clinician Sammie Juan Attending Clinician [phone] Alexandra Nagel Attending Clinician [phone] Juany Mcwilliams Attending Clinician Unavailable Kiarra Silva Attending Clinician Unavailable ANDREA NAVARRETE Attending Clinician Unavailable MALIK MEDINA Attending Clinician Unavailable Status, Fax Attending Clinician Unavailable Clarissa Maldonado Attending Clinician [phone] Re Owen Attending Clinician Unavailable Nicanor MedAdherMallory gr Attending Clinician UnavailTiffany Enriquez Attending Clinician Unavailable Caren Beck Attending Clinician Unavailable Hoa Duong Attending Clinician [phone] Ragini Toro Attending Clinician Unavailable Luo MedAdhermaile,, Re Attending Clinician Unavailable Radha Tom Attending Clinician Unavailable Casandra Kwan Attending Clinician Unavailable Napoleon Ramirez Attending Clinician Unavailable Ailyn Zavala Attending Clinician [phone] Jane Lerner Attending Clinician Unavailable Krystina Morrow Attending Clinician Unavailable Reece King Attending Clinician Unavailable Kiarra Aguirre Attending Clinician Unavailable Timmy Cohen Attending Clinician Unavailable Lay Tom Attending Clinician Unavailable Kate Owen Attending Clinician [phone] Shikha Felton Attending Clinician Unavailable Alexandria Palma Attending Clinician Unavailable Aura Perry Attending Clinician Unavailable Sabrina Boateng Attending Clinician Unavailable Enmanuel Jordan Attending Clinician Unavailable GC_SEFP_Rivera_A Admitting Clinician Unavailable Sammie Juan Unavailable [phone] Hoa Duong Unavailable [phone] Clarissa Maldonado Unavailable [phone] Kate Owen Unavailable [phone] Payers Payer Name Policy Type Policy Number Effective Date Expiration Date S ource BCBS HMO [id number] 2021 00:00:00 [place] [id number] 2021 ADVANTAGE (HMO) [facility]:00[id number] 2018 [id number] 2017 2017 [facility] 00:00:00 00:00:00 [facility] Problems Condition Condition Condition Status Onset Resolution Last Treating Co mments Source Name Details Category Date Date Treatment Clinician Date Endometria Endometria Disease Active H arris l cancer l cancer 04-23 Health 00:00: 00 Gynecologi Gynecologi Disease Active H arris c cancer c cancer 04-23 Health 00:00: 00 Dermatitis Condition Active 2019-082020-07-02 Kiko [facility] 09-01 15:40:37 Darius Pitt 00:00: Sammie ty 00 Health BMI Condition Active 2019-082020-07-02 Kiko Leg acy 29.0-29.9 09-01 15:40:37 Yoandy Commu ni 00:00: Sammie ty 00 Health Post-traum Post-traum Disease Active Overview : [facility] atic atic 12-03 [facility] stress stress 00:00: g of this disorder, disorder, 00 note unspecifie unspecifie might be d d different from the original. [place] 1 Priority 2 Essential Essential Disease Active Overview: King (primary) (primary) 12-03 [facility] hypertensi hypertensi 00:00: g of this on on 00 note might be different from the original. [place] 3 Priority 1 [place] V Disease Active Overview: [facility] diagnosis diagnosis 12-03 [facility] 00:00: g of this 00 note might be different from the original. GAF Score:45 Major Major Disease Active Overview: [facility] depressive depressive 12-02 [facility] disorder, disorder, 00:00: g of this recurrent, recurrent, 00 note unspecifie unspecifie might be d d different from the original. [place] 1 Priority 1 Unavailabi Unavailabi Disease Active Overview : King lity and lity and 12-02 [facility]a lth inaccessib inaccessib 00:00: g of this ility of ility of 00 note health-car health-car might be e e different facilities facilities from the original. [place] 4 Priority 1 Occupation Occupation Disease Active Overview : Malik al problem al problem 12-02 [facility] 00:00: g of this 00 note might be different from the original. [place] 4 Priority 2 Problem Problem Disease Active Overview: Joe is related to related to 12-02 [facility] primary primary 00:00: g of this support support 00 note group group might be different from the original. [place] 4 Priority 3 Economic Economic Disease Active Overview: Alonzo rris problem problem 12-02 [facility]alt h 00:00: g of this 00 note might be different from the original. [place] 4 Priority 4 Nausea and Condition Active 2017-082018-08-14 Dewayne Duong vomiting 10-15 11:28:03 [facility] i 00:00: ty 00 Health Cough, Condition Active 2017-10-28 Dewayne Maldonado chronic 3- 08:49:22 Clarissa Commun i 00:00: ty 00 Health Hoarseness Condition Active 2017-10-28 Dewayne Maldonado 3-02 08:49:22 Clarissa Communi 00:00: ty 00 [...] Diabetic Condition Active 2015-082016-08-14 Dewayne Maldonado peripheral 10-15 10:45:02 Clarissa Com samantha neuropathy 00:00: ty 00 Health Depression Condition Active 2015-082016-08-14 Dewayne Maldonado 2 10:45:02 [facility] Communi 00:00: ty 00 Health Arthralgia Condition Active 2015-082016-08-14 Dewayne Maldonado 0-19 10:19:04 [facility] Communi 00:00: ty 00 Health Immunizati Condition Active 2015-082016-06-16 Dewayne Maldonado on update 0- 09:12:09 [facility] Comm uni 00:00: ty 00 Health Hyperlipid Condition Active 2015-082016-06-16 Dewayne Maldonado emia 0 09:12:09 [facility] Communi 00:00: ty 00 Health Diabetes Condition Active 2015-082016-06-16 Dewayne Maldonado mellitus, 0- 09:12:09 Clarissa Comm uni type II 00:00: ty 00 Health Tobacco Condition Active 2015-082016-06-16 Canelo Maldonado PPD [facility] user 0 09:12:09 Clarissa since 16 Commu ni 00:00: yrs ty 00 Health Obesity Condition Active 2015-082016-06-16 Dewayne Maldondao 0 09:12:09 Clarissa Communi 00:00: ty 00 Health Cervical Cervical Disease Active 2014-08 April lopes cancer cancer 0-06 Health screening screening 00:00: 00 Tobacco Tobacco Disease Active King use use 8-05 Health disorder disorder 00:00: 00 Tobacco Tobacco Disease Active [facility] abuse abuse 8-05 Health counseling counseling 00:00: 00 Overweight Overweight Disease Active H shahram 8-05 Health 00:00: 00 Exercise Exercise Disease Active April lopes counseling counseling 8-05 He alth 00:00: 00 Diabetes Diabetes Disease Active April lopes mellitus mellitus 5 Health type 2 type 2 00:00: with with 00 complicati complicati ons ons Ingrown Ingrown Disease Active [facility] right big right big 5- Heal toenail toenail 00:00: 00 UTI (Lower UTI (Lower Disease Active H arris Urinary Urinary 515 Health Tract Tract 00:00: Infection) Infection) 00 Shingles Shingles Disease Active April lopes 4-22 Health 00:00: 00 Yeast Yeast Disease Active 2013-08 [facility] infection infection 1 Heal th 00:00: 00 left left Disease Active [facility] breast breast 9- Health mass needs mass needs 00:00: dx mammo dx mammo 00 and usg and usg 05/12 05/12 PTSD PTSD Disease Active Malik (post-trau (post-trau 05-08 He alth matic matic 00:00: stress stress 00 disorder) disorder) Skin Skin Disease Active Malik nodule - nodule - 03-19 Health left lower left lower 00:00: lid and lid and 00 left malar left malar RUQ RUQ Disease Active Malik abdominal abdominal 03-19 Heal th tenderness tenderness 00:00: 00 DM DM Disease Active Malik neuropathi neuropathi 03-19 He alth es es 00:00: 00 Diabetic Diabetic Disease Active Joejacoby s neuropathy neuropathy 04-26 He alth , painful , painful 00:00: arm and arm and 00 feet feet Allergic Allergic Disease Active April s rhinitis rhinitis 04-26 Health 00:00: 00 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 hyperchole 5-23 He alth sterolemia sterolemia 00:00: and and 00 hypertrigl hypertrigl yceridemia yceridemia GERD GERD Disease Active Malik (gastroeso (gastroeso 10-10 He alth phageal phageal 00:00: reflux reflux 00 disease) disease) Major Major Disease Active Malik depression depression 1-17 He alth , , [...] treated 00:00: 00 Rash Rash Disease Active [facility] Visual Visual Disease Active [place] disturbanc disturbanc He alth e e History of Past Illness Condition Condition Condition Status Onset Resolution Last Treating Co mments Source Name Details Category Date Date Treatment Clinician Date Mammogram, Condition Inactiv 2016-082018-07-30 2017-07-30 Dewayne King Screening e 09-30 00:00:00 13:10:31 Clarissa Co mmuni 00:00: ty 00 Health URI Condition Inactiv 2017-12-16 2016-12-16 Owen, [facility] e 4-20 00:00:00 14:36:53 Kate Commu ni 00:00: ty 00 Health Allergies, Adverse Reactions, Alerts Allergy Allergy Status Severity Reaction(s) Onset Inactive Treating Comm ents Source Name Type Date Date Clinician Mir Englishensi Active Anaphylaxis, 2019-0806/08/20 2 King ty to Swelling 0-22 2 patient Healt h adverse 00:00: states reaction 00 she is s to not drug allergic to Codeine CODEINE Drug Active High 2015-08 [facility] allergy Criticali 0-19 Commun i (disorde ty 00:00: ty r) 00 Health Codeine Allergy Active 2015-08 [place] to 0-19 Health substanc 00:00: e 00 Lamotrig Propensi Active 2013-08 rash Malik ine ty to 1-16 Health adverse 00:00: reaction 00 s to drug Family History Family Member Diagnosis Comments Start Date Stop Date Source Natural father Cancer [facility] Natural mother Cancer [facility] Paternal grandmother Cancer Joe is Health Social History Social Habit Start Date Stop Date Quantity Comments Source History of tobacco Cigarette Smoker [facility] use Exposure to 2022-06-05 2022-06-[address] [facility] SARS-CoV-2 (event) 00:00:00 10:50:00 Alcohol intake 2022-06-11 2022-06-11 Current non-drinker H arris Health 00:00:00 00:00:00 of alcohol (finding) History [facility] Food 2022-04-29 2022-04-[address] [facility] Worry 00:00:00 00:00:00 History [facility] Food 2022-04-29 2022-04-29 1 [facility] Scarcity 00:00:00 00:00:00 History SDOH 2022-03-18 [facility]22[facility] 00:[facility]:00 00:00:00 History SDOH 2022-03-18 2022-03-18 0 [facility] Alcohol Std Drinks 00:00:00 00:00:00 History SDOH 2022-03-18 2022-03-18 1 [facility] Alcohol Binge 00:00:00 00:00:00 History SDOH 2022-03-18 2022-03-18 5 [facility] Social Connections 00:00:00 00:00:00 Phone History SDOH 2022-03-18 2022-03-18 5 [facility] Social Connections 00:00:00 00:00:00 Get Together History SDOH 2022-03-18 2022-03-18 3 [facility] Social Connections 00:00:00 00:00:00 Sikh History SDOH 2022-03-18 2022-03-18 2 [facility] Social Connections 00:00:00 00:00:00 Membership [...] 00:00:00 00:00:00 History SDOH 2022-03-18 2022-03-18 2 [facility] Housing Unable to 00:00:00 00:00:00 Pay History SDTN 2022-03-18 2022-03-18 1 [facility] Housing Places 00:00:00 00:00:00 Lived History [facility] 2022-03-18 2022-03-18 2 [facility] Housing Homeless 00:00:00 00:00:00 Last Year Cigarettes smoked 2022-01-19 2022-01-[address] [facility] current (pack per 00:00:00 00:00:00 day) - Reported Cigarette 2022-01-19 2022-01-[address] [facility] pack-years 00:00:00 00:00:00 Tobacco use and 2022-01-19 2022-01-19 Smokeless tobacco [facility] exposure 00:00:00 00:00:00 non-user drug use, illicit 2020-07-02 2020-07-02 [facility]:12[facility] 15:12:44 Health alcohol use 2020-07-02 2020-07-02 Never [facility] ity 15:12:44 15:12:44 Health social history E&M 2020-07-02 2020-07-02 Single. Born in [facility] 15:12:44 15:12:44 [place]. City: [facility]. State: [place]. 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 Sex at : Female. Sexual orientation: Heterosexual. [...] call 2020-06-23 2020-06-23 06/23/2020 10:27 AM [facility] 10:27:41 10:27:41 Health sex at 2016-06-16 2016-06-16 Female [facility] 08:28:26 08:28:26 Health Occupation #1 2016-06-16 2016-06-16 [employer] [facility] unity 08:28:26 08:28:26 Health Tobacco Comment 2015-03-04 2015-03-[address] [facility] 00:00:00 00:00:00 cessation on 02/13/15 @ History SDOH 2012-08-10 2012-08-10 recovery 2000 [facility] alth Alcohol Comment 00:00:00 00:00:00 Sex Ass[birth year] At [birth year] [facility] alth 00:00:00 00:00:00 Smoking Status Start Date Stop Date Source Smokes tobacco daily 2022-01-19 00:00:[address] [facility] Medications Ordered Filled Start Stop Current Ordering Indication Dosage Frequency Signature Comments Components Source Medication Medication Date Date Medication? Clinician (SIG) Name Name benzocaine- 2021-08 Yes Sore throat by Mucous [place] menthoL 0-14 [facility] 15-2.3 mg 00:00: route Lozg 00 morphine 2021-08 Yes Cancer 15mg Take 1 Harri s (MS IR) 15 0-11 related tablet by ealth mg tablet 00:00: pain mouth 00 every 6 hours as needed for Pain methadone 2021-08 Yes Cancer 5mg Take 1 Joe is (DOLOPHINE) 0-11 [facility] mg tablet 00:00: pain mouth at 00 bedtime nightly gabapentin 2021-08 Yes Neuropathy 1200mg Take 2 Malik (NEURONTIN) 0-11 tablets by alth 600 mg 00:00: mouth 3 tablet 00 times daily morphine ER Yes Cancer 15mg Q.5D Take 1 Alonzo rris (MS CONTIN) 9-30 associated tablet by [facility] 15 mg 00:00: pain mouth 2 extended 00 times release daily tablet HYDROcodone Yes Cancer 1{tbl} Take 1 [place] -acetaminop 9-30 associated tablet by [facility] hen (NORCO) 00:00: pain mouth 10-325 mg 00 every 8 tablet hours as needed for Pain morphine ER 2021-0 2021- No Cancer 15mg Q.5D Take 1 H arris (MS CONTIN) 9-30 10-11 associated tablet by Health 15 mg 00:00: 00:00 pain mouth 2 extended 00 :00 times release daily tablet HYDROcodone 2021-0 2021- No Cancer 1{tbl} Take 1 Malik -acetaminop 9-30 10-11 associated tablet by Health hen (Myandb) 00:00: 00:00 pain mouth 10-325 mg 00 :00 every 8 tablet hours as needed for Pain HYDROcodone 2021-0 2021- No Cancer 1{tbl} Take 1 Malik -acetaminop - 09-30 associated tablet by [employer] hen (Myandb) 00:00: 00:00 pain mouth 10-325 mg 00 :00 every 8 tablet hours as needed for Pain HYDROcodone 2021-0 2021- No Cancer 1{tbl} Take 1 Malik -acetaminop - 09-30 associated tablet by [employer] hen (AvvoND) 00:00: 00:00 pain mouth 10-325 mg 00 :00 every 8 tablet hours as needed for Pain furosemide Yes Mild HTN 20mg Q.5D Take 1 H arris (LASIX) 20 9-20 tablet by Heal th mg tablet 00:00: mouth 2 00 times daily polyethylen Yes Cancer Mix 1 Alberto ris e glycol 9-20 associated packet ( Health 3350 00:00: pain grams) (GLYCOLAX) 00 into 4 to 17 gram 8 ounces oral powder of water, packet juice, soda, tea or coffee and drink once daily as directed omeprazole Yes Gastroesoph 20mg QD Take 1 Malik (PRILOSEC) 9-20 ageal capsule by He alth 20 mg 00:00: reflux mouth delayed 00 disease, daily release unspecified capsule whether esophagitis present furosemide Yes Mild HTN 20mg Q.5D Take [...] 1 [facility]ik (PRILOSEC) 9-20 ageal capsule by He alth 20 mg 00:00: reflux mouth delayed 00 disease, daily release unspecified capsule whether esophagitis present furosemide Yes Mild HTN 20mg Q.5D Take [...] 1 Malik (PRILOSEC) 9-20 ageal capsule by He alth 20 mg 00:00: reflux mouth delayed 00 disease, daily release unspecified capsule whether esophagitis present tropicamide 2022- Yes Diabetes 1[drp] Administer Malik (MYDRIACYL) 05-1819 mellitus 1 Drop in Health 0.5 % 00:00: 23:59 type 2 with each eye ophthalmic 00 :00 complicatio once as solution ns needed for up to 1 dose (for poor retina scan image) tropicamide 2022- Yes Diabetes 1[drp] Administer Malik (MYDRIACYL) 05-1819 mellitus 1 Drop in Health 0.5 % 00:00: 23:59 type 2 with each eye ophthalmic 00 :00 complicatio once as solution ns needed for up to 1 dose (for poor retina scan image) tropicamide 2022- Yes Diabetes 1[drp] Administer Malik (MYDRIACYL) 05-1819 mellitus 1 Drop in Health 0.5 % 00:00: 23:59 type 2 with each eye ophthalmic 00 :00 complicatio once as solution ns needed for up to 1 dose (for poor retina scan image) tropicamide 2022- Yes Encounter 1[drp] Administer Malik (MYDRIACYL) 9-07 03-06 for 1 Drop in He alth 0.5 % 00:00: 23:59 diabetes each eye ophthalmic 00 :00 type 2 eye once as solution exam needed for up to 1 dose (for poor retina scan image) tropicamide 2022- Yes Encounter 1[drp] Administer King (MYDRIACYL) 05-05 for 1 Drop in He alth 0.5 % 00:00: 23:59 diabetes each eye ophthalmic 00 :00 type 2 eye once as solution exam needed for up to 1 dose (for poor retina scan image) tropicamide 2022- Yes Encounter 1[drp] Administer King (MYDRIACYL) 05-05 for 1 Drop in He alth 0.5 % 00:00: 23:59 diabetes each eye ophthalmic 00 :00 type 2 eye once as solution exam needed for up to 1 dose (for poor retina scan image) lisinopriL Yes Mild HTN 10mg QD Take 1 H arris (PRINIVIL) 04-29 tablet by [facility] 10 mg 00:00: mouth tablet 00 daily naloxone Yes Cancer Give 1 Harri s (NARCAN) 4 04-29 associated dose of Health mg/actuatio 00:00: pain naloxone n nasal 00 in either spray nostril at first sign of opioid overdose and then immediatel y seek emergency medical assistance . If patient unresponsi ve and or breathing abnormally 2-3 minutes after 1st dose, give 2nd dose in other nostril lisinopriL Yes Mild HTN 10mg QD Take 1 H arris (PRINIVIL) 04-29 tablet by [facility] 10 mg 00:00: mouth tablet 00 daily gabapentin Yes Neuropathy 600mg Take 1 Malik (NEURONTIN) 04-29 tablet by [facility] 600 mg 00:00: mouth 3 tablet 00 [...] 1 Malik -acetaminop 04-29 associated tablet by [employer] hen (Myandb) 00:00: pain mouth 10-325 mg 00 every 8 tablet hours as needed for Pain lisinopriL Yes Mild HTN 10mg QD Take 1 H arris (PRINIVIL) 04-29 tablet by Heal th 10 mg 00:00: mouth tablet 00 daily gabapentin Yes Neuropathy 600mg Take 1 Malik (NEURONTIN) 04-29 tablet by [facility] 600 mg 00:00: mouth 3 tablet 00 times daily naloxone Yes Cancer Give 1 Harri s (NARCAN) 4 04-29 associated dose of Health mg/actuatio 00:00: pain naloxone n nasal 00 in either spray nostril at first sign of opioid overdose and then immediatel y seek emergency medical assistance . If patient unresponsi ve and or breathing abnormally 2-3 minutes after 1st dose, give 2nd dose in other nostril gabapentin 2021- No Neuropathy 600mg Take 1 Malik (NEURONTIN) 04-29 10-11 tablet by [facility] 600 mg 00:00: 00:00 mouth 3 tablet 00 :00 times daily morphine ER 2021- No Cancer 15mg Q.5D Take 1 H arris (MS CONTIN) 04-29 associated tablet by Health 15 mg 00:00: 00:00 pain mouth 2 extended 00 :00 times release daily tablet morphine ER 2021-0 2021- No Cancer 15mg Q.5D Take 1 H arris (MS CONTIN) 04-29 associated tablet by Health 15 mg 00:00: 00:00 pain mouth 2 extended 00 :00 times release daily tablet HYDROcodone 2021- No Cancer 1{tbl} Take 1 Malik -acetaminop 04-29-20 associated tablet by [employer] hen (Myandb) 00:00: 00:00 pain mouth 10-325 mg 00 :00 every 8 tablet hours as needed for Pain HYDROcodone 2021-2021- No Cancer 1{tbl} Take 1 Malik -acetaminop 04-29-20 associated tablet by [employer] hen [employer]) 00:00: 00:00 pain mouth 10-325 mg 00 :00 every 8 tablet hours as needed for [...] ia insulin NPH 2021- No Uncontrolle Inject King (HUMULIN N 04-23 d type 2 under the Health NPH U-100 10:50: 00:00 diabetes skin INSULIN) 55 :00 mellitus 100 unit/mL with injection hyperglycem ia insulin NPH 2021- No Uncontrolle Inject [facility] (HUMULIN N 04-23 d type 2 [facility] NPH U-100 10:50: 00:00 diabetes skin INSULIN) 55 :00 mellitus 100 unit/mL with injection hyperglycem ia insulin NPH 2021- No Uncontrolle Inject King [...] (GLUCOPHAGE 04-23 d type 2 tablet by [employer] ) 850 mg 00:00: diabetes mouth 2 tablet 00 mellitus times with daily with hyperglycem meals ia metoprolol Yes Primary 25mg QD Take 1 Alonzo rris succinate 04-23 hypertensio tablet by [employer] (TOPROL XL) 00:00: n mouth 25 mg 00 daily extended release tablet blood Yes Diabetes Use as Malik glucose 04-23 mellitus directed Heal meter kit 00:00: without to check 00 complicatio blood n glucose blood Yes Diabetes 1{each} Use 4 Joe is glucose 04-23 mellitus times Health test strips 00:00: without daily . 00 complicatio n lancets 28 Yes Diabetes 1{each} Use 4 Malik gauge - mellitus times Health 00:00: without daily . 00 complicatio n atorvastati Yes Diabetes 80mg Take 2 Malik n (LIPITOR) 04-23 mellitus tablets by [employer] 40 mg 00:00: without mouth at tablet 00 complicatio bedtime n nightly insulin Yes Uncontrolle 80U Q.5D Inject 80 Malik detemir 04-23 d type 2 Units [facility] U-100 00:00: diabetes under the (LEVEMIR [...] budesonide- Yes Reactive 2{puff} Q.5D Inhale 2 [place] formoteroL 04-23 airway puff by [facility] (SYMBICORT) 00:00: disease, mouth 2 80-4.5 00 mild time a mcg/actuati intermitten day. Rinse on inhaler t, mouth uncomplicat after each ed use. albuterol Yes Reactive 2{puff} Inhale 2 [place] 90 04-23 airway Puffs by [facility] mcg/actuati 00:00: disease, mouth 4 on inhaler 00 mild times intermitten daily as t, needed for uncomplicat Wheezing ed nitroGLYCER Yes Ischemic Dissolve 1 Malik IN 04-23 heart tablet [facility] (NITROSTAT) 00:00: disease under the 0.4 mg 00 tongue sublingual every 5 tablet minutes as needed, up to 3 times. If chest pain persists, call 911 ondansetron Yes Endometrial 8mg Take 1 [place] (ZOFRAN) 8 04-23 cancer tablet by alth mg tablet 00:00: mouth 00 every 8 hours on Day 2 - 4, then every 8 hours as needed for nausea/vom iting INSULIN Yes Diabetes Q.5D Use to [facility] is SYRINGE 0.5 04-23 mellitus inject He alth mL 00:00: without medication 30GX5/16" 00 complicatio 2 times syringe-nee n daily. Use dle a new syringe each time. gabapentin Yes Neuropathy 400mg Take 1 [place] (NEURONTIN) 04-23 capsule by alth 400 mg [...] (GLUCOPHAGE 04-23 d type 2 tablet by [facility] ) 850 mg 00:00: diabetes mouth 2 tablet 00 mellitus times with daily with hyperglycem meals ia metoprolol Yes Primary 25mg QD Take 1 Alonzo rris succinate 04-23 hypertensio tablet by [facility] (TOPROL XL) 00:00: n mouth 25 mg 00 daily extended release tablet blood Yes Diabetes Use as Malik glucose 04-23 mellitus directed [facility] meter kit 00:00: without to check 00 complicatio blood n glucose blood Yes Diabetes 1{each} Use 4 Joe is glucose 04-23 mellitus times [facility] test strips 00:00: without daily . 00 complicatio n lancets 28 Yes Diabetes 1{each} Use 4 Malik gauge 04-23 mellitus times Health 00:00: without daily . 00 complicatio n atorvastati Yes Diabetes 80mg Take 2 Malik n (LIPITOR) 04-23 mellitus tablets by [facility] 40 mg 00:00: without mouth at tablet 00 complicatio bedtime n nightly insulin Yes Uncontrolle 80U Q.5D Inject 80 Malik detemir 04-23 d type 2 Units [facility] U-100 00:00: diabetes under the (LEVEMIR 00 mellitus skin 2 U-100 with times INSULIN) hyperglycem daily 100 unit/mL ia injection lidocaine Yes sciatica 1{patch QD Apply 1 Malik (LIDODERM) 04-23 } Patch to [facility] 5 % patch 00:00: skin as 00 directed daily Leave patch(es) on for up to 12 hours, then 12 hours off. budesonide- Yes Reactive 2{puff} Q.5D Inhale 2 Malik formoteroL 04-23 airway puff by [facility] (SYMBICORT) 00:00: disease, mouth 2 80-4.5 00 mild time a mcg/actuati intermitten day. Rinse on inhaler t, mouth uncomplicat after each ed use. albuterol Yes Reactive 2{puff} Inhale 2 Malik 90 04-23 airway Puffs by [facility] mcg/actuati 00:00: disease, mouth 4 on inhaler 00 mild times intermitten daily as t, needed for uncomplicat Wheezing ed nitroGLYCER Yes Ischemic Dissolve 1 Malik IN 04-23 heart tablet [facility] (NITROSTAT) 00:00: disease under the 0.4 mg 00 tongue sublingual every 5 tablet minutes as needed, up to 3 times. If chest pain persists, call 911 HYDROcodone Yes Ovarian 1{tbl} Take 1 Malik -acetaminop 04-23 mass tablet by [facility] hen (NORCO) 00:00: mouth 5-325 mg 00 every 6 tablet hours as needed for Pain (severe pain) ondansetron Yes Endometrial 8mg Take 1 Malik (ZOFRAN) 8 04-23 cancer tablet by alth mg tablet 00:00: mouth 00 every 8 hours on Day 2 - 4, then every 8 hours as needed for nausea/vom iting traMADoL Yes Cancer 50mg Take 1 Harri s (ULTRAM) 50 04-23 associated tablet by [facility] mg tablet 00:00: pain mouth 00 every 6 hours as needed for Pain INSULIN 0 Yes Diabetes Q.5D Use to [facility] is SYRINGE 0.5 04-23 mellitus inject He alth mL 00:00: without medication 30GX5/16" 00 complicatio 2 times syringe-nee n daily. Use dle a new syringe each time. insulin Yes Diabetes Sliding Alberto ris lispro [...] (GLUCOPHAGE 04-23 d type 2 tablet by [facility] ) 850 mg 00:00: diabetes mouth 2 tablet 00 mellitus times with daily with hyperglycem meals ia metoprolol Yes Primary 25mg QD Take 1 Alonzo rris succinate 04-23 hypertensio tablet by [facility] (TOPROL XL) 00:00: n mouth 25 mg 00 daily extended release tablet blood Yes Diabetes Use as Malik glucose 04-23 mellitus directed [facility] meter kit 00:00: without to check 00 complicatio blood n glucose blood Yes Diabetes 1{each} Use 4 Joe is glucose 04-23 mellitus times [facility] test strips 00:00: without daily . 00 complicatio n lancets 28 Yes Diabetes 1{each} Use 4 Malik gauge 04-23 mellitus times Health 00:00: without daily . 00 complicatio n atorvastati Yes Diabetes 80mg Take 2 Malik n (LIPITOR) 04-23 mellitus tablets by [facility] 40 mg 00:00: without mouth at tablet 00 complicatio bedtime n nightly insulin Yes Uncontrolle 80U Q.5D Inject 80 [place] detemir 04-23 d type 2 Units [facility] U-100 00:00: diabetes under the (LEVEMIR 00 mellitus skin 2 U-100 with times INSULIN) hyperglycem daily 100 unit/mL ia injection lidocaine Yes sciatica 1{patch QD Apply 1 [place] (LIDODERM) 04-23 } Patch to [facility] h 5 % patch 00:00: skin as 00 directed daily Leave patch(es) on for up to 12 hours, then 12 hours off. budesonide- Yes Reactive 2{puff} Q.5D Inhale 2 [place] formoteroL 04-23 airway puff by [facility] (SYMBICORT) 00:00: disease, mouth 2 80-4.5 00 mild time a mcg/actuati intermitten day. Rinse on inhaler t, mouth uncomplicat after each ed use. albuterol Yes Reactive 2{puff} Inhale 2 Malik 90 - airway Puffs by [facility] mcg/actuati 00:00: disease, mouth 4 on inhaler 00 mild times intermitten daily as t, needed for uncomplicat Wheezing ed nitroGLYCER Yes Ischemic Dissolve 1 Malik IN 04-23 heart tablet [facility] (NITROSTAT) 00:00: disease under the 0.4 mg 00 tongue sublingual every 5 tablet minutes as needed, up to 3 times. If chest pain persists, call 911 ondansetron Yes Endometrial 8mg Take 1 [place] (ZOFRAN) 8 04-23 cancer tablet by alth mg tablet 00:00: mouth 00 every 8 hours on Day 2 - 4, then every 8 hours as needed for nausea/vom iting INSULIN Yes Diabetes Q.5D Use to [facility] is SYRINGE 0.5 04-23 mellitus inject He alth mL 00:00: without medication 30GX5/16" 00 complicatio 2 times syringe-nee n daily. Use dle a new syringe each time. insulin Yes Diabetes Sliding Alberto ris lispro [...] (GLUCOPHAGE 04-23 d type 2 tablet by [employer] ) 850 mg 00:00: diabetes mouth 2 tablet 00 mellitus times with daily with hyperglycem meals ia metoprolol Yes Primary 25mg QD Take 1 Alonzo rris succinate 04-23 hypertensio tablet by [employer] (TOPROL XL) 00:00: n mouth 25 mg 00 daily extended release tablet blood Yes Diabetes Use as Malik glucose 04-23 mellitus directed [facility]al [facility] meter kit 00:00: without to check 00 complicatio blood n glucose blood Yes Diabetes 1{each} Use 4 Joe is glucose 04-23 mellitus times [facility] test strips 00:00: without daily . 00 complicatio n lancets 28 0 Yes Diabetes 1{each} Use 4 Malik gauge - mellitus times Health 00:00: without daily . 00 complicatio n atorvastati Yes Diabetes 80mg Take 2 Malik n (LIPITOR) 04-23 mellitus tablets by [employer] 40 mg 00:00: without mouth at tablet [...] 2 Malik formoteroL 04-23 airway puff by [facility] (SYMBICORT) 00:00: disease, mouth 2 80-4.5 00 mild time a mcg/actuati intermitten day. Rinse on inhaler t, mouth uncomplicat after each ed use. albuterol Yes Reactive 2{puff} Inhale 2 Malik 90 04-23 airway Puffs by [facility] mcg/actuati 00:00: disease, mouth 4 on inhaler 00 mild times intermitten daily as t, needed for uncomplicat Wheezing ed nitroGLYCER Yes Ischemic Dissolve 1 Malik IN 04-23 heart tablet [facility] (NITROSTAT) 00:00: disease under the 0.4 mg 00 tongue sublingual every 5 tablet minutes as needed, up to 3 times. If chest pain persists, call 911 ondansetron Yes Endometrial 8mg Take 1 Malik (ZOFRAN) 8 04-23 cancer tablet by alth mg tablet 00:00: mouth 00 every 8 hours on Day 2 - 4, then every 8 hours as needed for nausea/vom iting INSULIN Yes Diabetes Q.5D Use to [facility] is SYRINGE 0.5 04-23 mellitus inject alth mL 00:00: without medication 30GX5/16" 00 complicatio 2 times syringe-nee n daily. Use dle a new syringe each time. gabapentin No Neuropathy 400mg Take 1 [place] (NEURONTIN) 04-23 capsule by ealth 400 mg 00:00: 00:00 mouth 3 capsule 00 :00 times daily HYDROcodone 2021- No Ovarian 1{tbl} Take 1 King -acetaminop 04-23 mass tablet by alth hen (NORCO) 00:00: 00:00 mouth 5-325 mg 00 :00 every 6 tablet hours as needed for Pain (severe pain) traMADoL 0 2021- No Cancer 50mg Take 1 Joe is (ULTRAM) 50 04-23 associated tablet by [facility] mg tablet 00:00: 00:00 pain mouth 00 :00 every 6 hours as needed for Pain gabapentin 2021- Neuropathy 400mg Take 1 Malik (NEURONTIN) 04-23 capsule by [facility] 400 mg 00:00: 00:00 mouth 3 capsule 00 :00 times daily HYDROcodone 2021- No Ovarian 1{tbl} Take 1 Malik -acetaminop 04-23 mass tablet by [facility] (NORInvierteMe,SL) 00:00: 00:00 mouth 5-325 mg 00 :00 every 6 tablet hours as needed for Pain (severe pain) traMADoL 2021- Cancer 50mg Take 1 Joe is (ULTRAM) 50 04-23 associated tablet by Health mg tablet 00:00: 00:00 pain mouth 00 :00 every 6 hours as needed for Pain gabapentin 2021- Neuropathy 400mg Take 1 Malik (NEURONTIN) 04-23 capsule by [facility] 400 mg 00:00: 00:00 mouth 3 capsule 00 :00 times daily HYDROcodone 2021- Ovarian 1{tbl} Take 1 Malik -acetaminop 04-23 mass tablet by [facility] (Myandb) 00:00: 00:00 mouth 5-325 mg 00 :00 every 6 tablet hours as needed for Pain (severe pain) traMADoL 2021- Cancer 50mg Take 1 Joe is (ULTRAM) 50 04-23 associated tablet by Health mg tablet 00:00: 00:00 pain mouth 00 :00 every 6 hours as needed for Pain lidocaine 2021- sciatica 1{patch QD Apply 1 Malik (LIDODERM) 04-23 } Patch to [facility]al th 5 % patch 00:00: 00:00 skin as 00 :00 directed daily Leave patch(es) on for up to 12 hours, then 12 hours off. insulin Uncontrolle 80U Q.5D Inject 80 [facility] detemir 04-23 d type 2 Units Health U-100 00:00: 00:00 diabetes under the (LEVEMIR 00 :00 mellitus skin 2 U-100 with times INSULIN) hyperglycem daily 100 unit/mL ia injection ondansetron 2022-0 2022- No Endometrial 8mg Take 1 Malik (ZOFRAN) 8 04-23 cancer tablet by H [...] ondansetron 2021- No Endometrial 8mg Take 1 Malik (ZOFRAN) 04-23 cancer tablet by H ealth [...] ondansetron 2021- No Endometrial 8mg Take 1 Malik (ZOFRAN) 04-23 cancer tablet by H ealth [...] iting nitroGLYCER 2021- No Ischemic Dissolve 1 Malik IN 04-14 heart [facility] (NITROSTAT) 00:00: 00:00 disease under the 0.4 mg 00 :00 tongue sublingual every 5 tablet minutes as needed, up to 3 times. If chest pain persists, call 911 budesonide- 2021- No Reactive 2{puff} Q.5D Inhale 2 [place] formoteroL 04-14 airway Puffs by [facility] (SYMBICORT) 00:00: 00:00 disease, mouth 2 80-4.5 00 :00 mild times mcg/actuati intermitten daily on inhaler t, Inhale 2 uncomplicat puff by ed mouth 2 time a day. Rinse mouth after each use. albuterol 2021- No Reactive 2{puff} Inhale 2 [place] 90 04-14 airway Puffs by [facility] mcg/actuati 00:00: 00:00 disease, mouth 4 on inhaler 00 :00 mild times intermitten daily as t, needed for uncomplicat Wheezing ed nitroGLYCER 2021- No Ischemic Dissolve 1 Malik IN 04-14 heart [facility] (NITROSTAT) 00:00: 00:00 disease under the 0.4 mg 00 :00 tongue sublingual every 5 tablet minutes as needed, up to 3 times. If chest pain persists, call 911 budesonide- 2021- No Reactive 2{puff} Q.5D Inhale 2 [place] formoteroL 04-14 airway Puffs by [facility] (SYMBICORT) 00:00: 00:00 disease, mouth 2 80-4.5 00 :00 mild times mcg/actuati intermitten daily on inhaler t, Inhale 2 uncomplicat puff by ed mouth 2 time a day. Rinse mouth after each use. albuterol 2021- No Reactive 2{puff} Inhale 2 King 90 04-14 airway Puffs by Health mcg/actuati 00:00: 00:00 disease, mouth 4 on inhaler 00 :00 mild times intermitten daily as t, needed for uncomplicat Wheezing ed nitroGLYCER 2021- No Ischemic Dissolve 1 [place] IN 04-14 heart [facility] (NITROSTAT) 00:00: 00:00 disease under the 0.4 mg 00 :00 tongue sublingual every 5 tablet minutes as needed, up to 3 times. If chest pain persists, call 911 budesonide- 2021- No Reactive 2{puff} Q.5D Inhale 2 [facility] formoteroL 04-14 airway Puffs by [facility] (SYMBICORT) 00:00: 00:00 disease, mouth 2 80-4.5 00 :00 mild times mcg/actuati intermitten daily on inhaler t, Inhale 2 uncomplicat puff by ed mouth 2 time a day. Rinse mouth after each use. albuterol 2021- No Reactive 2{puff} Inhale 2 King [place] 04-14 airway Puffs by Health mcg/actuati 00:00: 00:00 disease, mouth 4 on inhaler 00 :00 mild times intermitten daily as t, needed for uncomplicat Wheezing ed nitroGLYCER 2021- No Ischemic Dissolve 1 [place] IN 04-14 heart [facility] (NITROSTAT) 00:00: 00:00 disease under the 0.4 mg 00 :00 tongue sublingual every 5 tablet minutes as needed, up to 3 times. If chest pain persists, call 911 budesonide- 2021- No Reactive 2{puff} Q.5D Inhale 2 [place] formoteroL 04-14 airway Puffs by alth (SYMBICORT) 00:00: 00:00 disease, mouth 2 80-4.5 00 :00 mild times mcg/actuati intermitten daily on inhaler t, Inhale 2 uncomplicat puff by ed mouth 2 time a day. Rinse mouth after each use. albuterol 2021- No Reactive 2{puff} Inhale 2 [place] [id number] 04-14-26 airway Puffs by Health mcg/actuati 00:00: 00:00 disease, mouth 4 on inhaler 00 :00 mild times intermitten daily as t, needed for uncomplicat Wheezing ed albuterol 2021- No Reactive 2{puff} Inhale 2 [place] [address] 04-14-17 airway Puffs by Health mcg/actuati 00:00: 00:00 disease, mouth 4 on inhaler 00 :00 mild times intermitten daily as t, needed for uncomplicat Wheezing ed albuterol 2021- No Reactive 2{puff} Inhale 2 [place] [address] 04-14-17 airway Puffs by Health mcg/actuati 00:00: 00:00 disease, mouth 4 on inhaler 00 :00 mild times intermitten daily as t, needed for uncomplicat Wheezing ed albuterol 2021- No Reactive 2{puff} Inhale 2 [place] [address] 04-14 08-17 airway Puffs by Health mcg/actuati 00:00: 00:00 disease, mouth 4 on inhaler 00 :00 mild times intermitten daily as t, needed for uncomplicat Wheezing ed albuterol 2021- No Reactive 2{puff} Inhale 2 [place] [address] 04-14 08-17 airway Puffs by Health mcg/actuati 00:00: 00:00 disease, mouth 4 on [...] image) tropicamide 2022- Yes Encounter 1[drp] Administer Malik (MYDRIACYL) 04-13 for 1 Drop in He alth 0.5 % 00:00: 23:59 diabetes each eye ophthalmic 00 :00 type 2 eye once as solution exam needed for up to 1 dose (for poor retina scan image) tropicamide 2022- Yes Encounter 1[drp] Administer Malik (MYDRIACYL) 04-13 for 1 Drop in He alth 0.5 % 00:00: 23:59 diabetes each eye ophthalmic 00 :00 type 2 eye once as solution exam needed for up to 1 dose (for poor retina scan image) tropicamide 2022- Yes Encounter 1[drp] Administer Malik (MYDRIACYL) 04-13 for 1 Drop in He [...] Alonzo rris nitrate 04-09 endometrium } [facility]al th applicators 13:45: 01:44 (SILVER 00 :00 NITRATE) 75-25 % topical applicator 1 Stick ferric 2021- No Thickened 1{vial} Alonzo rris subsulfate 04-09 endometrium H [facility]alth (MONSEL'S) 13:45: 01:44 1.04 g/mL 00 :00 topical paste 1 Vial silver 2021- No Thickened 1{stick Alonzo rris nitrate 04-09 endometrium } [facility]al th applicators 13:45: 01:44 (SILVER 00 :00 NITRATE) 75-25 % topical applicator 1 Stick ferric 2021- No Thickened 1{vial} Alonzo rris subsulfate 04-09 endometrium [facility] (MONSEL'S) 13:45: 01:44 1.04 g/mL 00 :00 topical paste 1 Vial silver 2021- No Thickened 1{stick Alonzo rris nitrate 04-09 endometrium } [facility]al th applicators 13:45: 01:44 (SILVER 00 :00 NITRATE) [...] 00 :00 (two) times a day HYDROcodone 2021-2021- No Acute 1{tbl} Take 1 Malik -acetaminop 03-18 pelvic pain tablet by [employer] [facility] [employer]) 00:00: 12:07 mouth 5-325 mg 00 :26 every 8 tablet hours as needed for Pain gabapentin 2021-2021- No Neuropathy 400mg Q.5D Take 1 Malik (NEURONTIN) 03-18 capsule by H [facility] 400 mg 00:00: 00:00 mouth 2 capsule 00 :00 (two) times a day HYDROcodone 2021-0 2021- No Acute 1{tbl} Take 1 Malik -acetaminop 03-18 pelvic pain tablet by [employer] [facility] [employer]) 00:00: 12:07 mouth 5-325 mg 00 :26 every 8 tablet hours as needed for Pain gabapentin 2021-0 2021- No Neuropathy 400mg Q.5D Take 1 Malik (NEURONTIN) 03-18- capsule by [facility] 400 mg 00:00: 00:00 mouth 2 capsule 00 :00 (two) times a day HYDROcodone 2021-0 2- No Acute 1{tbl} Take 1 Malik -acetaminop 03-18- pelvic pain tablet by [employer] [facility] [employer]) 00:00: 12:07 mouth 5-325 mg 00 :26 every 8 tablet hours as needed for Pain gabapentin 2021- No Neuropathy 400mg Q.5D Take 1 Malik (NEURONTIN) 03-18 capsule by [facility] 400 mg 00:00: 00:00 mouth 2 capsule 00 :00 (two) times a day HYDROcodone 2021- No Acute 1{tbl} Take 1 Malik -acetaminop 03-18 pelvic pain tablet by Health [facility] (NORCO) 00:00: 12:07 mouth 5-325 mg 00 [...] Medication 60mg QD Take 3 Malik (PROZAC) 02-26 refill capsules He alth mg capsule 00:00: by mouth 00 daily. FLUoxetine Yes Medication 60mg QD Take 3 Malik (PROZAC) 02-26 refill capsules He al[facility] mg capsule 00:00: by mouth 00 daily. FLUoxetine Yes Medication 60mg QD Take 3 Malik (PROZAC) 02-26 refill capsules He alth mg capsule 00:00: by mouth 00 daily. insulin 2021- No Diabetes Sliding Alonzo rris lispro 02-16 mellitus scale If Heal [facility] (HUMALOG 00:00: 00:00 without glucose U-100 00 :00 complicatio >200<250 INSULIN) n inject 3 100 unit/mL Units If injection >250<300 inject 6 Units If >300<35 0 inject 9Units Check blood sugar 30 minutes before meals.. insulin 2021- No Diabetes Sliding Alonzo rris lispro 02-16 mellitus scale If Heal (HUMALOG 00:00: 00:00 without glucose U-100 [...] before meals.. insulin Yes Inject [facility], 5-11 under the Health [facility], 11:52: skin 2 (HumuLIN 22 (two) N,NovoLIN times a N) 100 day before UNIT/ML meals. injection insulin 202-0 Yes Inject [facility], 5-11 under the [facility] [employer], 11:52: skin 2 (HumuLIN 22 (two) N,NovoLIN times a N) 100 day before UNIT/ML meals. injection insulin 202-0 Yes Inject [facility], 5-11 under the [facility] [employer], 11:52: skin 2 (HumuLIN 22 (two) N,NovoLIN times a N) 100 day before UNIT/ML meals. injection insulin 202-0 Yes Inject [facility], 5-11 under the Health [employer], 11:52: skin 2 (HumuLIN 22 (two) N,NovoLIN times a N) 100 day before UNIT/ML meals. injection metFORMIN 2022-0 Yes 850mg Take 850 [facility] (Glucophage 5-11 mg by [employer] ) 850 MG 11:44: mouth 2 tablet 59 (two) times a day with meals. furosemide 2022-0 Yes 20mg QD Take 20 mg U T (Lasix) 20 5-11 by mouth 1 Hea lth MG tablet 11:44: (one) time 59 each day. gabapentin 2022-0 Yes 400mg [id number] Take 400 [facility] (Neurontin) 5-11 [id number] mg by [facility]alth 400 MG 11:44: [...] 59 each day. gabapentin 2022-0 Yes 400mg Q.[id number] Take 400 [facility] (Neurontin) 5-11 [id number] mg by [facility]alth 400 MG 11:44: [...] 11:44: (one) time 59 each day. gabapentin 202-0 Yes 400mg Q.[id number] Take 400 [facility] (Neurontin) 5-11 [id number] mg by [facility]alth 400 MG 11:44: 3D mouth 3 capsule 59 (three) times a day. FLUoxetine 202-0 Yes 40mg QD Take 40 mg U T (PROzac) 40 5-11 by mouth 1 He alth MG capsule 11:44: (one) time 59 each day. metFORMIN 202-0 Yes 850mg Take 850 [facility] (Glucophage 5-11 [facility] ) 850 MG 11:44: mouth 2 tablet 59 (two) times a day with meals. furosemide 2021-0 Yes 20mg QD Take 20 mg U T (Lasix) 20 5-11 by mouth 1 [facility]a l[facility] MG tablet 11:44: (one) time 59 each day. gabapentin 2021-0 Yes 400mg Q.[id number] Take 400 [facility] (Neurontin) 5-11 [id number] mg by [facility]alth 400 MG 11:44: 3D mouth 3 capsule 59 (three) times a day. FLUoxetine 2021-0 Yes 40mg QD Take 40 mg U T (PROzac) 40 5-11 by mouth 1 He alth MG capsule 11:44: (one) time 59 each day. metoprolol 2021-0 2021- No 25mg QD Take 25 mg Malik tartrate 12-15 by mouth Health (LOPRESSOR) 00:00: 00:00 daily 25 mg 00 :00 tablet metoprolol 2021-0 2021- No 25mg QD Take 25 mg Malik tartrate 12-1524 by mouth Health (LOPRESSOR) 00:00: 00:00 daily 25 mg 00 :00 tablet metoprolol 2021-0 2022- No 25mg QD Take 25 mg Malik tartrate 12-15 by [facility] (LOPRESSOR) 00:00: 00:00 daily 25 mg 00 :00 tablet metoprolol 2021- No 25mg QD Take 25 mg Malik tartrate 12-15 by [facility] (LOPRESSOR) 00:00: 00:00 daily 25 mg 00 :00 tablet furosemide Yes Coronary 20mg QD Take 1 H arris (LASIX) 20 4-04 artery tablet by He alth mg tablet 00:00: disease mouth 00 involving daily nondalton heart without angina pectoris, unspecified vessel or lesion type furosemide Yes Coronary 20mg QD Take 1 H arris (LASIX) 20 4-04 artery tablet by He alth mg tablet 00:00: disease mouth 00 involving daily nondalton heart without angina pectoris, unspecified vessel or lesion type furosemide Yes Coronary 20mg QD Take 1 H arris (LASIX) 20 4-04 artery tablet by He al[facility] mg tablet 00:00: disease mouth 00 involving daily nondalton heart without angina pectoris, unspecified vessel or lesion type furosemide Yes Coronary 20mg QD Take 1 H arris (LASIX) 20 4-04 artery tablet by He al[facility] mg tablet 00:00: disease mouth 00 involving daily nondalton heart without angina pectoris, unspecified vessel or lesion type metFORMIN 2021- No Uncontrolle 850mg Q.5D Take 1 Malik (GLUCOPHAGE 11-30 d type 2 tablet [facility] ) 850 mg 00:00: 00:00 diabetes mouth 2 tablet 00 :00 mellitus times with daily hyperglycem (with ia meals) metoprolol 2021- No Primary 25mg QD Take 1 H arris succinate 11-30 hypertensio tablet by [facility] (TOPROL XL) 00:00: 00:00 n mouth 25 mg 00 :00 daily extended release tablet metFORMIN 2021- No Uncontrolle 850mg Q.5D Take 1 Malik (GLUCOPHAGE 11-30 d type 2 tablet by [facility] ) 850 mg 00:00: 00:00 diabetes mouth 2 tablet 00 :00 mellitus times with daily hyperglycem (with ia meals) metoprolol 2021- No Primary 25mg QD Take 1 H arris succinate 11-30 hypertensio tablet by [employer] (TOPROL XL) 00:00: 00:00 n mouth 25 mg 00 :00 daily extended release tablet metFORMIN 2021- No Uncontrolle 850mg Q.5D Take 1 Malik (GLUCOPHAGE 11-30 d type 2 tablet by [employer] ) 850 mg 00:00: 00:00 diabetes mouth 2 tablet 00 :00 mellitus times with daily hyperglycem (with ia meals) metoprolol 2021- No Primary 25mg QD Take 1 H arris succinate 11-30 hypertensio tablet by [employer] (TOPROL XL) 00:00: 00:00 n mouth 25 mg 00 :00 daily extended release tablet metFORMIN 2021-2021- No Uncontrolle 850mg Q.5D Take 1 Malik (GLUCOPHAGE 11-30 d type 2 tablet by [employer] ) 850 mg 00:00: 00:00 diabetes mouth 2 tablet 00 :00 mellitus times with daily hyperglycem (with ia meals) metoprolol 2021- No Primary 25mg QD Take 1 H arris succinate 11-30 hypertensio tablet by [employer] (TOPROL XL) 00:00: 00:00 n mouth 25 mg 00 :00 daily extended release tablet gabapentin 2021-2021- No Neuropathy 400mg Q.5D Take 1 Malik (NEURONTIN) 11-30- capsule by [facility] 400 mg 00:00: 00:00 mouth 2 capsule 00 :00 (two) times a day gabapentin 2021-0 2021- No Neuropathy 400mg Q.5D Take 1 Malik (NEURONTIN) 11-30- capsule by [facility] 400 mg 00:00: 00:00 mouth 2 capsule 00 :00 (two) times a day gabapentin 2021-0 2021- No Neuropathy 400mg Q.5D Take 1 Malik (NEURONTIN) 11-30- capsule by [facility] 400 mg 00:00: 00:00 mouth 2 capsule 00 :00 (two) times a day gabapentin 2021-0 2021- No Neuropathy 400mg Q.5D Take 1 [facility]ik (NEURONTIN) 11-30- capsule by [facility] 400 mg 00:00: 00:00 mouth 2 capsule 00 :00 (two) times a day aspirin 2021- Yes Coronary 81mg QD Chew and Alonzo rris (ASPIRIN) 4-01 artery swallow 1 [facility] 81 mg 00:00: disease tablet by chewable 00 involving mouth tablet nondalton daily heart without angina pectoris, unspecified vessel or lesion type aspirin Yes Coronary 81mg QD Chew and Alonzo rris (ASPIRIN) 11-27 artery swallow 1 [facility] 81 mg 00:00: disease tablet by chewable 00 involving mouth tablet nondalton daily heart without angina pectoris, unspecified vessel or lesion type aspirin Yes Coronary 81mg QD Chew and Alonzo rris (ASPIRIN) 11-27 artery swallow 1 [facility] 81 mg 00:00: disease tablet by chewable 00 involving mouth tablet nondalton daily heart without angina pectoris, unspecified vessel or lesion type aspirin Yes Coronary 81mg QD Chew and Alonzo rris (ASPIRIN) 11-27 artery swallow 1 [facility] 81 mg 00:00: disease tablet by chewable 00 involving mouth tablet nondalton daily heart without angina pectoris, unspecified vessel [...] days. terconazole 2021- No Vaginal Insert 1 Malik (TERAZOL 7) 11-27 itching applicator Health 0.4 % 00:00: 23:59 ful vaginal 00 :00 vaginally cream every night at bedtime for 7 days. terconazole 2021- No Vaginal Insert 1 Malik [...] (GLUCOPHAGE 11-27 d type 2 tablet by [employer] ) 850 mg 00:00: 00:00 diabetes mouth [...] 00:00 disease mouth 00 :00 involving daily nondalton heart without angina pectoris, unspecified vessel or lesion type metoprolol 2021- No Primary 25mg QD Take 1 H arris succinate 11-27 hypertensio tablet by [employer] (TOPROL XL) 00:00: 00:00 n mouth 25 mg 00 :00 daily extended release tablet metFORMIN 2021- No Uncontrolle 850mg Q.5D Take 1 [facility] (GLUCOPHAGE 11-27 d type 2 tablet by [employer] ) 850 mg 00:00: 00:00 diabetes mouth [...] 00:00 disease mouth 00 :00 involving daily nondalton heart without angina pectoris, unspecified vessel or lesion type metoprolol 2021- No Primary 25mg QD Take 1 H arris succinate 11-27 hypertensio tablet by [employer] (TOPROL XL) 00:00: 00:00 n mouth 25 mg 00 :00 daily extended release tablet metFORMIN 2021-2021- No Uncontrolle 850mg Q.5D Take 1 [facility] (GLUCOPHAGE 11-27 d type 2 tablet by [employer] ) 850 mg 00:00: 00:00 diabetes mouth 2 tablet 00 :00 mellitus times with daily hyperglycem (with ia meals) gabapentin 2021-2021- No Neuropathy 400mg Q.5D Take 1 [facility] (NEURONTIN) 11-27 capsule by [facility] 400 mg 00:00: 00:00 mouth 2 capsule 00 :00 (two) times a day furosemide 2021-2021- No Coronary 20mg QD Take 1 [facility] (LASIX) 20 11-27 artery tablet by [facility] mg tablet 00:00: 00:00 disease mouth 00 :00 involving daily nondalton heart without angina pectoris, unspecified vessel or lesion type metoprolol 2021-2021- No Primary 25mg QD Take 1 H arris succinate 11-27 hypertensio tablet by [employer] (TOPROL XL) 00:00: 00:00 n mouth 25 mg 00 :00 daily extended release tablet metFORMIN 2021-2021- No Uncontrolle 850mg Q.5D Take 1 [facility] (GLUCOPHAGE 11-27 d type 2 tablet by [employer] ) 850 mg 00:00: 00:00 diabetes mouth 2 tablet 00 :00 mellitus times with daily hyperglycem (with ia meals) gabapentin 2021- No Neuropathy 400mg Q.5D Take 1 [facility] (NEURONTIN) 11-27 capsule by [facility] 400 mg 00:00: 00:00 mouth 2 capsule 00 :00 (two) times a day furosemide 2021-0 2021- No Coronary 20mg QD Take 1 [facility] (LASIX) 20 11-27 artery tablet by [facility] mg tablet 00:00: 00:00 disease mouth 00 :00 involving daily nondalton heart without angina pectoris, unspecified vessel or lesion type metoprolol 2021-2021- No Primary 25mg QD Take 1 H arris succinate 11-27 hypertensio tablet by [employer] (TOPROL XL) 00:00: 00:00 n mouth 25 [...] 30GX5/16") syringe syringe-nee each time. dle insulin 2021- No Uncontrolle 10U Inject 10 [...] 30GX5/16") syringe syringe-nee each time. dle insulin 2021- No Uncontrolle 10U Inject 10 [...] 30GX5/16") syringe syringe-nee each time. dle insulin 2021- No Uncontrolle 10U Inject 10 [facility] REGULAR 100 11-27 d type 2 Units He al[facility] unit/mL 00:00: 23:59 diabetes under the injection 00 :00 mellitus skin once with for 1 dose hyperglycem ia INSULIN 2021- No Preventativ Use to Malik SYRINGE 1 4-01 04-01 e health inject Hea lth mL 00:00: 23:59 care medication 30GX5/16" 00 :00 once for 1 (TRUEPLUS dose. Use INSULIN 1ML a new 30GX5/16") syringe syringe-nee each time. dle (FLUOCINONI 2019-08 Sammie Apply [facility] [place]) 0.05 % 09-01 Kiko Pitt Twice a Communi CREA 00:00: 00:00 Day to ty 00 :00 affected Health areas for 10 days (HYDROXYZIN 2019-08 Sammie TAKE 1 TAB [facility] HCL) 50 09-01 Kiko Pitt By Mouth Communi MG TABS 00:00: 00:00 BID As ty 00 :00 Needed Health ITCHINESS acyclovir 2019-08 Yes Take 1 [facility] (ZOVIRAX) 0-22 tablet(s) Healt h 800 mg 00:00: by mouth tablet 00 Twice a day for HSV suppressio n acyclovir 2019-08 Yes Take 1 [facility] (ZOVIRAX) 0-22 tablet(s) Healt h 800 mg 00:00: by mouth tablet 00 Twice a day for HSV suppressio n acyclovir 2019-08 Yes Take 1 [facility] (ZOVIRAX) 0-22 tablet(s) Healt h 800 mg 00:00: by mouth tablet 00 Twice a day for HSV suppressio n acyclovir 2019-08 Yes Take 1 [facility] (ZOVIRAX) [...] ommuni CAPS 00:00: a day ty 00 [facility] mometasone 2015-08 Yes Seasonal 1{spray QD 1 [facility] by [facility] (NASONEX) 1-30 allergies } each Healt h 50 00:00: nostril mcg/actuati 00 route on nasal daily. spray mometasone 2015-08 Yes Seasonal 1{spray QD 1 [facility] by [facility] (NASONEX) 1-30 allergies } each Healt h 50 00:00: nostril mcg/actuati 00 route on nasal daily. spray mometasone 2015-08 Yes Seasonal 1{spray QD 1 [facility] by [facility] (NASONEX) 1-30 allergies } each Healt h 50 00:00: nostril mcg/actuati 00 route on nasal daily. spray mometasone 2015-08 Yes Seasonal 1{spray QD 1 [facility] by [facility] (NASONEX) 1-30 allergies } each Healt h 50 00:00: nostril mcg/actuati 00 route on nasal daily. spray azithromyci 2015-08- No Acute URI Take 2 [facility] n 09-26- tablets by [facility] (ZITHROMAX) 00:00: 00:00 mouth on 250 mg 00 :00 the first tablet day, then take one tablet every day for the next 4 days. cetirizine 2015-08- No Acute URI 10mg QD Take 1 [facility] (ZYRTEC) 10 09-26 tablet by alth mg tablet 00:00: 00:00 mouth 00 :00 daily. azithromyci 2015-08- No Acute URI Take 2 Malik n 09-26-26 tablets by [facility] (ZITHROMAX) 00:00: 00:00 mouth on 250 mg 00 :00 the first tablet day, then take one tablet every day for the next 4 days. cetirizine 2015-08- No Acute URI 10mg QD Take 1 [facility] (ZYRTEC) 10 09-26 tablet by [facility] al[facility] mg tablet 00:00: 00:00 mouth 00 :00 daily. azithromyci 2015-08- No Acute URI Take 2 [facility]ik n 09-26- tablets by [facility] (ZITHROMAX) 00:00: 00:00 mouth on 250 mg 00 :00 the first tablet day, then take one tablet every day for the next 4 days. cetirizine 2015-08- No Acute URI 10mg QD Take 1 [facility] (ZYRTEC) 10 09-26 tablet by alth mg tablet 00:00: 00:00 mouth 00 :00 daily. azithromyci 2015-08- No Acute URI Take 2 [facility]ik n 09-26 tablets by [facility] (ZITHROMAX) 00:00: 00:00 mouth on 250 [...] Clarissa use 5 [place] [facility] UNIFINE 0-19 Shrikant times Commun i PENTIPS 00:00: daily ty (INSULIN 00 [facility] PEN NEEDLE) 31G X 5 MM INSULIN 2015-08 Yes Clarissa use as [facility] (INSULIN 00:00: use 5 x ty SYRINGE-NEE 00 daily Health DLE U-100) 29G X 1/2" 1 ML (SIMVASTATI 2015-08 Yes Clarissa 1 By Mouth [facility]) 20 MG 0-19 Shrikanth take at [employer] samantha TABS 00:00: bedtime ty 00 Health HUMALOG 2015-08 Yes Clarissa inject 25 [facility] (INSULIN 0-19 Shrikanth units Commu ni LISPRO) 100 00:00: Three ty UNIT/ML 00 Times a Health SOCT Day with meals. LANTUS 2015-08 Yes Clarissa inject 80 [facility] (INSULIN 0-19 Shrikanth units Commu ni GLARGINE) 00:00: Twice a ty 100 UNIT/ML 00 Day Health SOLN azithromyci 2021- No Tobacco use Take 2 Malik n 05-27- disorder tablets by [facility] (ZITHROMAX) 00:00: 00:00 mouth on 250 mg 00 :00 the first tablet day, then take one tablet every day for the next 4 days. azithromyci 2021- No Tobacco use Take 2 Malik n 05-27- disorder tablets by [facility] (ZITHROMAX) 00:00: 00:00 mouth on 250 mg 00 :00 the first tablet day, then take one tablet every day for the next 4 days. azithromyci 2021- No Tobacco use Take 2 Malik n 05-27- disorder tablets by [facility] (ZITHROMAX) 00:00: 00:00 mouth on 250 mg 00 :00 the first tablet day, then take one tablet every day for the next 4 days. azithromyci 2021- No Tobacco use Take 2 Malik n 05-27 disorder tablets by [facility] (ZITHROMAX) 00:00: 00:00 mouth on 250 mg 00 :00 the first tablet day, then take one tablet every day for the next 4 days. budesonide- 2021- No Reactive 2{puff} Q.5D Inhale 2 [facility] formoterol 04-27 08-16 airway Puffs by Swapnil dixon (SYMBICORT) 00:00: 00:00 disease, mouth 2 80-4.5 00 :00 mild times mcg/actuati intermitten daily on inhaler t, Inhale 2 uncomplicat puff by ed mouth 2 time a day. Rinse mouth after each use.. budesonide- 2021- No Reactive 2{puff} Q.5D Inhale 2 [facility] formoterol 04-27 08-16 airway Puffs by He alth (SYMBICORT) 00:00: 00:00 disease, mouth 2 80-4.5 00 :00 mild times mcg/actuati intermitten daily on inhaler t, Inhale 2 uncomplicat puff by ed mouth 2 time a day. Rinse mouth after each use.. budesonide- 2021- No Reactive 2{puff} Q.5D Inhale 2 [facility] formoterol 04-27 08-16 airway Puffs by [facility] (SYMBICORT) 00:00: 00:00 disease, mouth 2 80-4.5 00 :00 mild times mcg/actuati intermitten daily on inhaler t, Inhale 2 uncomplicat puff by ed mouth 2 time a day. Rinse mouth after each use.. budesonide2021- No Reactive 2{puff} Q.5D Inhale 2 [facility] formoterol 04-27 08-16 airway Puffs by He alth (SYMBICORT) 00:00: 00:00 disease, mouth 2 80-4.5 00 :00 mild times mcg/actuati intermitten daily on inhaler t, Inhale 2 uncomplicat puff by ed mouth 2 time a day. Rinse mouth after each use.. INSULIN Yes Medication Use to Alonzo rris SYRINGE 1mL 7-12 refill inject Heal th 30GX5/16" 00:00: medication syringe-nee 00 3 times dle daily. Use a new syringe each time.. blood Yes Medication Check Harri s glucose 7-12 refill sugars 3 Health test strips 00:00: times a 00 day. INSULIN 0 Yes Medication Use to Alonzo rris SYRINGE 1mL 7-12 refill inject Heal th 30GX5/16" 00:00: medication syringe-nee 00 3 times dle daily. Use a new syringe each time.. blood Yes Medication Check Harri s glucose 7-12 refill sugars 3 Health test strips 00:00: times a 00 day. INSULIN 2015-0 Yes Medication Use to Alonzo rris SYRINGE 1mL 7-12 refill inject Heal th 30GX5/16" 00:00: medication syringe-nee 00 3 times dle daily. Use a new syringe each time.. blood Yes Medication Check Harri s glucose 7-12 refill sugars 3 Health test strips 00:00: times a 00 day. INSULIN Yes Medication Use to Alonzo rris SYRINGE 1mL 7-12 refill inject Heal th 30GX5/16" 00:00: medication syringe-nee 00 3 times [...] 60mg QD Take 3 [facility] (PROZAC) 20 03-09-21 refill capsules H [facility]alth mg capsule 00:00: 00:00 by mouth 00 :00 daily. FLUoxetine 2021- No Medication 60mg QD Take 3 [facility] (PROZAC) 20 03-09-21 refill capsules H [facility]alth mg capsule 00:00: 00:00 by mouth 00 :00 daily. metFORMIN 2021- No Medication 850mg Q.5D Take 1 [facility] (GLUCOPHAGE 03-09 refill tablet by Health ) 850 mg 00:00: 00:00 mouth 2 tablet 00 :00 times daily (with meals). metoprolol 2021- No Medication 12.5mg Q.5D Take 1/2 ( [facility] tartrate 03-09 refill 0.5) Health (LOPRESSOR) 00:00: 00:00 tablets by 25 mg 00 :00 mouth 2 tablet times daily. gabapentin 2021- No Medication 300mg Take 1 [facility] (NEURONTIN) 03-09 refill capsule by [employer] 300 mg 00:00: 00:00 mouth 3 capsule 00 :00 times daily. metFORMIN 2021- No Medication 850mg Q.5D Take 1 [facility] (GLUCOPHAGE 03-09 refill tablet by [employer] ) 850 mg 00:00: 00:00 mouth 2 tablet 00 :00 times daily (with meals). metoprolol 2021- No Medication 12.5mg Q.5D Take 1/2 ( [facility] tartrate 03-09 refill 0.5) Health (LOPRESSOR) 00:00: 00:00 tablets by 25 mg 00 :00 mouth 2 tablet times daily. gabapentin 2021- No Medication 300mg Take 1 [facility] (NEURONTIN) 03-09 refill capsule by [employer] 300 mg 00:00: 00:00 mouth 3 capsule 00 :00 times daily. metFORMIN 2021- No Medication 850mg Q.5D Take 1 [facility] (GLUCOPHAGE 03-09 refill tablet by [employer] ) 850 mg 00:00: 00:00 mouth 2 tablet 00 :00 times daily (with meals). metoprolol 2021- No Medication 12.5mg Q.5D Take 1/2 ( [facility] tartrate 03-09 refill 0.5) Health (LOPRESSOR) 00:00: 00:00 tablets by 25 mg 00 :00 mouth 2 tablet times daily. gabapentin 2021- No Medication 300mg Take 1 [facility] (NEURONTIN) 03-09 refill capsule by Health 300 mg 00:00: 00:00 mouth 3 capsule 00 :00 times daily. metFORMIN 2021- No Medication 850mg Q.5D Take 1 [facility] (GLUCOPHAGE 03-09 ref[facility] ) 850 mg 00:00: 00:00 mouth 2 tablet 00 :00 times daily (with meals). metoprolol 2021- No Medication 12.5mg Q.5D Take 1/2 ( [facility] tartrate 03-09 refill 0.5) [facility] (LOPRESSOR) 00:00: 00:00 tablets by 25 mg 00 :00 mouth 2 tablet times daily. gabapentin 2021- No Medication 300mg Take 1 [facility] (NEURONTIN) 03-09 refill capsule by [facility] 300 mg 00:00: 00:00 mouth 3 [...] 30 minutes before meals.. ergocalcife Yes Diabetes 18356P Take 1 [facility]ik rol 4-27 mellitus capsule by Healt h (VITAMIN 00:00: due to mouth D2) 50,000 00 underlying weekly. unit condition capsule with diabetic nephropathy ergocalcife 2015-0 Yes Diabetes 11767M Take 1 [facility] rol 4-27 mellitus capsule by Healt h (VITAMIN 00:00: due to mouth D2) 50,000 00 underlying weekly. unit condition capsule with diabetic nephropathy ergocalcife 0 Yes Diabetes 83137Q Take 1 [facility] rol 4-27 mellitus capsule by Healt [facility] (VITAMIN 00:00: due to mouth D2) 50,000 00 underlying weekly. unit condition capsule with diabetic nephropathy ergocalcife 0 Yes Diabetes 88816P Take 1 [facility]ik rol 4-27 mellitus capsule [...] 2021- No Throat pain Take 5 ml [facility] diphenhydrA 04-23 by mouth Hela harperh MINE 00:00: 00:00 twice syrup-1 mL 00 :00 daily.comp lidocaine ound at mucosal :[place] [facility] mL nystatin oral suspension oral suspension- [facility] predniSONE 2021- Diabetes Take 3 [facility] (DELTASONE) - mellitus tabs daily Health 20 mg 00:00: 00:00 due to for three tablet 00 :00 underlying days then condition 2 tabs with daily for diabetic three days nephropathy then take 1 tab daily for 7 days. 1 mL 2021- No Throat pain Take 5 ml Mal[facility] diphenhydrA 04-23 by mouth a [facility] 00:00: 00:00 twice syrup-1 mL 00 :00 daily.comp lidocaine ound at mucosal :[place] [facility] mL nystatin oral suspension oral suspension- [facility] predniSONE 2021- Diabetes Take 3 [facility] (DELTASONE) 04-23 mellitus tabs daily Health 20 mg 00:00: 00:00 due to for three tablet 00 :00 underlying days then condition 2 tabs with daily for diabetic three days nephropathy then take 1 tab daily for 7 days. 1 mL 2021- No Throat pain Take 5 ml [facility] diphenhydrA 04-23 by mouth a [facility] 00:00: 00:00 twice syrup-1 mL 00 :00 daily.comp lidocaine ound at mucosal :[place] [facility] mL nystatin oral suspension oral suspension- [facility] predniSONE 2021- Diabetes Take 3 [facility] (DELTASONE) - mellitus tabs daily Health 20 mg 00:00: 00:00 due to for three tablet 00 :00 underlying days then condition 2 tabs with daily for diabetic three days nephropathy then take 1 tab daily for 7 days. 1 mL 2021- No Throat pain Take 5 ml [facility] diphenhydrA 04-23 by mouth [facility] 00:00: 00:00 twice syrup-1 mL 00 :00 daily.comp lidocaine ound at mucosal :[place] [facility] mL nystatin oral suspension oral suspension- [facility] ibuprofen 2021- Acute 800mg Take 1 Alberto ris (MOTRIN) 10-25 tonsillitis tablet by Health 800 mg 00:00: 00:00 , mouth tablet 00 :00 unspecified every 8 etiology hours as needed for Pain. ibuprofen No Acute 800mg Take 1 [facility] ris (MOTRIN) 2- tonsillitis tablet by Health 800 mg 00:00: 00:00 , mouth tablet 00 :00 unspecified every 8 etiology hours as needed for Pain. ibuprofen No Acute 800mg Take 1 [facility]to ris (MOTRIN) 2- tonsillitis tablet by Health 800 mg 00:00: 00:00 , mouth tablet 00 :00 unspecified every 8 etiology hours as needed for Pain. ibuprofen No Acute 800mg Take 1 Alberto ris [...] USE Malik glucose 2-11 complicatio DIRECTED 2 [facility] (BLOOD 00:00: n type II TIMES A GLUCOSE DAY TEST STRIPS) test strips mometasone 2014-08 Yes Subacute 2{spray QD use 2 [facility] (NASONEX) 1-19 maxillary } Sprays by [facility] 50 00:00: sinusitis each mcg/actuati 00 nostril on nasal route spray daily. cetirizine 2014-08 Yes Subacute 10mg QD Take 1 H arris (ZYRTEC) 10 1-19 maxillary tablet by Health mg tablet 00:00: sinusitis mouth 00 daily. mometasone 2014-08 Yes Subacute 2{spray QD use 2 [facility] (NASONEX) 1-19 maxillary } Sprays by [facility] 50 00:00: sinusitis each mcg/actuati 00 nostril on nasal route spray daily. cetirizine 2014-08 Yes Subacute 10mg QD Take 1 H arris (ZYRTEC) 10 1-19 maxillary tablet by Health mg tablet 00:00: sinusitis mouth 00 daily. mometasone 2014-08 Yes Subacute 2{spray QD use 2 [facility] (NASONEX) 1-19 maxillary } Sprays by [facility] 50 00:00: sinusitis each mcg/actuati 00 nostril on nasal route spray daily. cetirizine 2014-08 Yes Subacute 10mg QD Take 1 H arris (ZYRTEC) 10 1-19 maxillary tablet by Health mg tablet 00:00: sinusitis mouth 00 daily. mometasone 2014-08 Yes Subacute 2{spray QD use 2 [facility] (NASONEX) 1-19 maxillary } Sprays by [facility] 50 00:00: sinusitis each mcg/actuati 00 nostril on nasal route spray daily. cetirizine 2014-08 Yes Subacute 10mg QD Take 1 H arris (ZYRTEC) 10 1-19 maxillary tablet by Health mg tablet 00:00: sinusitis mouth 00 daily. nitroGLYCER 2014-08- No Ischemic Dissolve 1 Malik IN 09-16 0816 heart tablet [employer] (NITROSTAT) 00:00: 00:00 disease under the 0.4 mg 00 :00 tongue sublingual every 5 tablet minutes as needed, up to 3 times. If chest pain persists, call 911. albuterol 2014-08- No Reactive 2{puff} Inhale 2 [facility] (VENTOLIN 09-16 airway Puffs by [facility] HFA,PROVENT 00:00: 00:00 disease, mouth 4 IL 00 :00 mild times HFA,PROAIR intermitten daily as HFA) 90 t, needed for mcg/actuati uncomplicat Wheezing. on inhaler ed nitroGLYCER 2014-08- No Ischemic Dissolve 1 [facility] IN 09-16 [facility] (NITROSTAT) 00:00: 00:00 disease under the 0.4 mg 00 :00 tongue sublingual every 5 tablet minutes as needed, up to 3 times. If chest pain persists, call 911. albuterol 2014-08- No Reactive 2{puff} Inhale 2 [facility] (VENTOLIN 09-16 airway Puffs by [facility] HFA,PROVENT 00:00: 00:00 disease, mouth 4 IL 00 :00 mild times HFA,PROAIR intermitten daily as HFA) 90 t, needed for mcg/actuati uncomplicat Wheezing. on inhaler ed nitroGLYCER 2014-08- No Ischemic Dissolve 1 [facility] IN 09-16 [facility] (NITROSTAT) 00:00: 00:00 disease under the 0.4 mg 00 :00 tongue sublingual every 5 tablet minutes as needed, up to 3 times. If chest pain persists, call 911. albuterol 2014-08- No Reactive 2{puff} Inhale 2 [facility] (VENTOLIN 09-16 airway Puffs by [facility] HFA,PROVENT 00:00: 00:00 disease, mouth 4 IL 00 :00 mild times HFA,PROAIR intermitten daily as HFA) 90 t, needed for mcg/actuati uncomplicat Wheezing. on inhaler ed nitroGLYCER 2014-08- No Ischemic Dissolve 1 [facility]ik IN 09-16 [facility] (NITROSTAT) 00:00: 00:00 disease under the 0.4 mg 00 :00 tongue sublingual every 5 tablet minutes as needed, up to 3 times. If chest pain persists, call 911. albuterol 2014-08- No Reactive 2{puff} Inhale 2 [facility] (VENTOLIN 1-19 08-16 [facility]PROVENT 00:00: 00:00 disease, mouth 4 [place] [...] tablet 00:00: 00:00 mouth 00 :00 daily. famotidine 2014-08- No Medication 40mg QD Take 2 [facility] (PEPCID) 20 0-12 09-20 refill tablets by Health mg tablet 00:00: 00:00 mouth 00 :00 daily. famotidine 2014-08- No Medication 40mg QD Take 2 [facility] (PEPCID) 20 0- 09-20 refill tablets by Health mg tablet 00:00: 00:00 mouth 00 :00 daily. loratadine 2014-08- No Other 10mg QD Take 1 Alberto ris (CLARITIN) 0-04-23 allergic tablet by Health 10 mg 00:00: [...] 1 tablet by mouth once a day.. maryanne Yes Type II or Q.5D Apply to [facility] 05-27 unspecified affected Heal ([facility]) 00:00: type area 2 0.025 % 00 diabetes times topical mellitus daily. cream without mention of complicatio n, not stated as uncontrolle d maryanne Yes Type II or Q.5D Apply to [facility] 05-27 unspecified affected Heal ([facility]) 00:00: type area 2 0.025 % 00 diabetes times topical mellitus daily. cream without mention of complicatio n, not stated as uncontrolle d maryanne Yes Type II or Q.5D Apply to [facility] 05-27 unspecified affected Heal th ([facility]) 00:00: type area 2 0.025 % 00 diabetes times topical mellitus daily. cream without mention of complicatio n, not stated as uncontrolle d maryanne Yes Type II or Q.5D Apply to [facility] 05-27 unspecified affected Heal th (KENALOG) 00:00: type area 2 0.025 % 00 diabetes times topical mellitus daily. cream without mention of complicatio n, not stated as uncontrolle d insulin 2021- No Type II or Inject 80 Malik [...] n, not stated as uncontrolle d insulin 2021- No Type II or Inject 80 Malik [...] hydrocortis Yes Contact Q.5D Apply to Malik victorino 2.5 % 7-08 dermatitis affected Health ointment 00:00: area 2 00 times daily. hydrocortis Yes Contact Q.5D Apply to [place] 2.5 % 7-08 dermatitis affected Health ointment 00:00: area 2 00 times daily. hydrocortis Yes Contact Q.5D Apply to [facility] 2.5 % 7-08 dermatitis affected Health ointment 00:00: area 2 [...] unspecified inject Health 30GX5/16" 00:00: type insulin syringe-ne 00 diabetes Use as dle mellitus directed. without Use a new mention of syringe complicatio each time. n, not stated as uncontrolle d INSULIN Yes Type II or Use to Alonzo rris SYRINGE 1mL 6-18 unspecified inject Health 30GX5/16" 00:00: type insulin syringe-ne 00 diabetes Use as dle mellitus directed. [...] fluorouraci 2021- No Actinic Q.5D Apply to Malik l (EFUDEX) 09-10 keratosis affected Health 5 % topical 00:00: 00:00 area 2 cream 00 :00 times daily For 2 weeks or till effect. fluorouraci 2021- No Actinic Q.5D Apply to [facility]ik l (EFUDEX) 09-10 keratosis affected Health 5 % [...] For 2 weeks or till effect. glucose 2013-0 Yes Type II or 4 times H arris blood test 3-21 unspecified weekly. Health (PRECISION 00:00: type XTRA) strip 00 diabetes mellitus without mention of complicatio n, not stated as uncontrolle d LANCETS 2013-0 Yes Type II or 4 times H arris 3-21 unspecified weekly. Healt h 00:00: type 00 diabetes mellitus without mention of complicatio n, not stated as uncontrolle d glucose 2013-0 Yes Type II or 4 times H arris blood test 3-21 unspecified weekly. Health (PRECISION 00:00: type XTRA) strip 00 diabetes mellitus without mention of complicatio n, not stated as uncontrolle d LANCETS 2013-0 Yes Type II or 4 times H arris 3-21 unspecified weekly. Healt h 00:00: type 00 diabetes mellitus without mention of complicatio n, not stated as uncontrolle d glucose 2013-0 Yes Type II or 4 times H arris blood test 3-21 unspecified weekly. Health (PRECISION 00:00: type XTRA) strip 00 diabetes mellitus without mention of complicatio n, not stated as uncontrolle d LANCETS 2013-0 Yes Type II or 4 times H arris 3-21 unspecified weekly. Healt h 00:00: type 00 diabetes mellitus without mention of complicatio n, not stated as uncontrolle d glucose 2013-0 Yes Type II or 4 times H arris blood test 3-21 unspecified weekly. Health (PRECISION 00:00: type XTRA) strip 00 diabetes mellitus without mention of complicatio n, not stated as uncontrolle d LANCETS 2013-0 Yes Type II or 4 times H arris 3-21 unspecified weekly. Healt h 00:00: type 00 diabetes mellitus without mention of complicatio n, not stated as uncontrolle d Immunizations Ordered Immunization Filled Immunization Date Status Commen ts Source Name Name [place] Age 12yrs+ 2022-06-[address] [facility] Bivalent Booster 00:00:00 COVID Vaccine Pfizer Sars-cov-2 2021-05-25 Completed [facility] Vaccination 00:00:00 Pfizer Sars-cov-2 2021-05-25 Completed [facility] Vaccination 00:00:00 Pfizer Sars-cov-2 2021-05-[address] [facility] Vaccination 00:00:00 Pfizer Sars-cov-2 2020-09-[address] [facility] Vaccination 00:00:00 Pfizer Sars-cov-2 2020-09-[address] [facility] Vaccination 00:00:00 Pfizer Sars-cov-2 2020-09-[address] [facility] Vaccination 00:00:00 Pfizer Sars-cov-2 2020-08-31 Completed [facility] Vaccination 00:00:00 Pfizer Sars-cov-2 2020-08-31 Completed [facility] Vaccination 00:00:00 Pfizer Sars-cov-2 2020-08-[address] [facility] Vaccination 00:00:00 flu vax 2017-07-30 Completed [facility] 12:28:45 Health flu vax 2016-06-16 Completed [facility] 08:28:26 Health Influenza Vaccine 2015-05-27 Completed [facility] 00:00:00 Influenza Vaccine 2015-05-[address] [facility] 00:00:00 Influenza Vaccine 2015-05-27 Completed [facility] 00:00:00 Influenza Vaccine 2015-05-27 Completed [facility] 00:00:00 Influenza Vaccine 2014-06-19 Completed [facility] 00:00:00 Influenza Vaccine 2014-06-[address] [facility] 00:00:00 Influenza Vaccine 2014-06-19 Completed [facility] 00:00:00 Influenza Vaccine 2014-06-19 Completed [facility] 00:00:00 PPV 23 Pneumococcal 2012-08-31 Completed [facility] [facility]00 PPV 23 Pneumococcal 2012-08-31 [facility] [employer] Polysaccaride 00:00:00 PPV 23 Pneumococcal 2012-08-31 [facility]00 PPV 23 Pneumococcal 2012-08-31 Completed [facility] Polysaccaride 00:00:00 Influenza Vaccine 2012-08-[address] [facility] 00:00:00 Tdap Tetanus, 2012-08-01 Completed [facility] diphtheria, 00:00:00 acellular pertussis Vaccine Influenza Vaccine 2012-08-[address] [facility] 00:00:00 Tdap Tetanus, 2012-08-01 Completed [facility] diphtheria, 00:00:00 acellular pertussis Vaccine Influenza Vaccine 2012-08-[address] [facility] 00:00:00 Tdap Tetanus, 2012-08-01 Completed [facility] diphtheria, 00:00:00 acellular pertussis Vaccine Influenza Vaccine 2012-08-[address] [facility] 00:00:00 Tdap Tetanus, 2012-08-01 Completed [facility] diphtheria, 00:00:00 acellular pertussis Vaccine Vital Signs Vital Name Observation Time Observation Value Comments Source Systolic blood 2022-01-06 16:40:00 128 mm[Hg] [facility] Diastolic blood 2022-01-06 16:40:00 63 mm[Hg] [facility] Heart rate 2022-01-06 16:40:00 70 /min [facility] Body temperature 2022-01-06 16:40:00 36.28 Melody [facility] Body height 2022-01-06 16:40:[address] [facility] Body weight 2022-01-06 16:40:00 75.978 kg [facility] BMI 2022-01-06 16:40:00 28.75 kg/m2 [facility] Systolic blood 2022-06-11 10:50:00 133 mm[Hg] [facility] pressure Diastolic blood 2022-06-11 10:50:00 49 mm[Hg] [facility] pressure Heart rate 2022-06-11 10:50:00 81 /min [facility] Body temperature 2022-06-11 10:50:00 37.56 Melody [facility] Respiratory rate 2022-06-11 10:50:00 18 /min [facility] Body height 2022-06-11 10:50:00 162.6 cm [facility] Body weight 2022-06-11 10:50:00 77.021 kg [facility] BMI 2022-06-11 10:50:00 29.15 kg/m2 [facility] Systolic blood 2022-05-31 14:28:00 111 mm[Hg] [facility] pressure Diastolic blood 2022-05-31 14:28:00 46 mm[Hg] [facility] pressure Heart rate 2022-05-31 14:28:00 65 /min [facility] Body temperature 2022-05-31 14:28:00 36.78 Mel[facility] Respiratory rate 2022-05-31 14:28:00 18 /min [facility] Body height 2022-05-31 08:33:00 162.6 cm [facility] Body weight 2022-05-31 08:33:00 80.604 kg [facility] BMI 2022-05-31 08:33:00 30.50 kg/m2 [facility] Systolic blood 2022-05-18 13:38:00 143 mm[Hg] [facility] pressure Diastolic blood 2022-05-18 13:38:00 60 mm[Hg] [facility] pressure Heart rate 2022-05-18 13:38:00 72 /min [facility] Body temperature 2022-05-18 13:38:00 36.83 Mel[facility] Respiratory rate 2022-05-18 13:38:00 18 /min [facility] Body height 2022-05-18 13:38:00 162.6 cm [facility] Body weight 2022-05-18 13:38:00 79.833 kg [facility] BMI 2022-05-18 13:38:00 30.21 kg/m2 [facility] Systolic blood 2022-04-23 12:30:00 169 mm[Hg] [facility] pressure Diastolic blood 2022-04-23 12:30:00 51 mm[Hg] [facility] pressure Heart rate 2022-04-23 12:30:00 58 /min [facility] Body temperature 2022-04-23 12:30:00 36.61 Mel[facility] Respiratory rate 2022-04-23 12:30:00 19 /min [facility] Body height 2022-04-23 12:30:00 162.6 cm [facility] Body weight 2022-04-23 12:30:00 74.027 kg [facility] BMI 2022-04-23 12:30:00 28.01 kg/m2 [facility] Oxygen saturation in 2022-02-03 15:32:00 98 /min [facility] Arterial blood by Pulse oximetry temperature site 2020-07-02 15:12:44 oral Lega cy [facility] Health respiratory rate E&M 2020-07-02 15:12:44 16 /min [facility] Health pulse rate 2020-07-02 15:12:44 60 /min [facility] Health blood pressure, 2020-07-02 15:12:44 61 mm[Hg] [facility] diastolic Health blood pressure, 2020-07-02 15:12:44 119 mm[Hg] [facility] systolic Health weight E&M 2020-07-02 15:12:44 169 [lb_av] [facility] weight in kilograms 2020-07-02 15:12:44 76.82 kg L [facility] E& Health height in 2020-07-02 15:12:44 [facility]56 [facility] oxygen saturation, 2020-07-02 15:12:44 98 % [facility] oximetry Health temperature E&M 2020-07-02 15:12:44 98.0 [degF] [facility] Health oxygen saturation, 2018-08-14 10:54:52 94 % [facility] Health blood pressure, 2018-08-14 10:54:52 72 mm[Hg] [facility] diastolic Health blood pressure, 2018-08-14 10:54:52 147 mm[Hg] [facility] systolic Health pulse rate 2018-08-14 10:54:52 81 /min [facility] Health temperature E&M 2018-08-14 10:54:52 98.4 [degF] [facility] Health weight E&M 2018-08-14 10:54:52 171.25 [lb_av] [facility] Health weight in kilograms 2018-08-14 10:54:52 77.84 kg L [facility] E&M Health temperature site 2018-08-14 10:54:52 oral Lega [facility] Health height in 2018-08-14 10:54:52 162.56 cm [facility] ommunity centimeters E&M Health weight E&M 2018-07-04 14:01:38 184 [lb_av] [facility] weight in kilograms 2018-07-04 14:01:38 83.64 kg L [facility] E& Health blood pressure, 2018-07-04 14:01:38 83 mm[Hg] [facility] diastolic Health blood pressure, 2018-07-04 14:01:38 133 mm[Hg] [facility] systolic Health oxygen saturation, 2018-07-04 14:01:38 95 % [facility] oximetry Health pulse rate 2018-07-04 14:01:38 90 /min [facility] temperature E&M 2018-07-04 14:01:38 98.2 [degF] [facility] temperature site 2018-07-04 14:01:38 oral Lega [facility] Health height in 2018-07-04 14:01:38 162.56 [facility] centimeters E&M Health blood pressure, 2017-10-28 08:14:02 72 mm[Hg] [facility] diastolic Health blood pressure, 2017-10-28 08:14:02 123 mm[Hg] [facility] systolic Health oxygen saturation, 2017-10-28 08:14:02 97 % [facility] oximetry Health pulse rate 2017-10-28 08:14:02 85 /min [facility] temperature E&M 2017-10-28 08:14:02 96.9 [degF] [facility] weight E&M 2017-10-28 08:14:02 185.13 [lb_av] [facility] weight in kilograms 2017-10-28 08:14:02 84.15 kg L [facility] E& Health temperature site 2017-10-28 08:14:02 tympanic [facility] Health height in 2017-10-28 08:14:02 162.56 cm [facility] ommunity centimeters E&M Health pulse rate 2017-07-30 12:28:45 80 /min [facility] Health blood pressure, 2017-07-30 12:28:45 72 mm[Hg] Legac y [facility] diastolic Health blood pressure, 2017-07-30 12:28:45 146 mm[Hg] Legac y [facility] systolic Health respiratory rate E&M 2017-07-30 12:28:45 16 /min [facility] Health oxygen saturation, 2017-07-30 12:28:45 98 % [facility] temperature E&M 2017-07-30 12:28:45 98.0 [degF] [facility] Health weight E&M 2017-07-30 12:28:45 184 [lb_av] [facility] weight in kilograms 2017-07-30 12:28:45 83.64 kg L [facility] E& Health temperature site 2017-07-30 12:28:45 tympanic [facility] Health height in 2017-07-30 12:28:45 162.56 cm [facility] om[facility]ity centimeters E&M Health pulse rate 2016-12-16 13:55:25 82 /min [facility] blood pressure, 2016-12-16 13:55:25 77 mm[Hg] [facility] diastolic Health blood pressure, 2016-12-16 13:55:25 155 mm[Hg] [facility] systolic Health oxygen saturation, 2016-12-16 13:55:25 96 % [facility] temperature E&M 2016-12-16 13:55:25 99.6 [degF] [facility] Health weight E&M 2016-12-16 13:55:25 185.60 [lb_av] [facility] Health weight in kilograms 2016-12-16 13:55:25 84.36 kg L [facility] E& Health temperature site 2016-12-16 13:55:25 tympanic Lega [facility] Health height in 2016-12-16 13:55:25 162.56 cm [facility] om[facility]ity centimeters E&M Health pulse rate 2016-08-14 09:50:08 76 /min [facility] blood pressure, 2016-08-14 09:50:08 67 mm[Hg] [facility] diastolic Health blood pressure, 2016-08-14 09:50:08 111 mm[Hg] [facility] systolic Health temperature site 2016-08-14 09:50:08 tympanic [facility] Health temperature E&M 2016-08-14 09:50:08 96.9 [degF] [facility] oxygen saturation, 2016-08-14 09:50:08 97 % [facility] oximetry Health weight E&M 2016-08-14 09:50:08 179.25 [lb_av] [facility] weight in kilograms 2016-08-14 09:50:08 81.48 kg L [facility] E& Health height in 2016-08-14 09:50:08 162.56 cm [facility] om[facility]ity centimeters E&M Health weight E&M 2016-06-16 08:28:26 178.50 [lb_av] [facility] weight in kilograms 2016-06-16 08:28:26 81.14 kg L [facility], 2016-06-16 08:28:26 98 % [facility] oximetry Health pulse rate 2016-06-16 08:28:26 73 /min [facility] blood pressure, 2016-06-16 08:28:26 69 mm[Hg] [facility] diastolic Health blood pressure, 2016-06-16 08:28:26 113 mm[Hg] [facility] systolic Health temperature E&M 2016-06-16 08:28:26 96.9 [degF] [facility] height in 2016-06-16 08:28:26 162.56 cm [facility] C ommunity centimeters E&M Health temperature site 2016-06-16 08:28:26 tympanic [facility] Procedures Procedure Date / Time Performed Performing Clinician Sourc e [place] 125 2022-05-28 12:17:00 Blayne Robbins CBC/DIFF 2022-05-28 12:17:00 Blayne Robbins COMPREHENSIVE METABOLIC 2022-05-28 12:17:00 Blayne Rob[facility] PANEL MAGNESIUM 2022-05-28 12:17:00 Blayne Robbins CBC 2022-05-28 12:17:00 Blayne Robbins HEMOCCULT KIT FOR SPECIMEN 2022-05-18 14:13:[address] [facility] COLLECTION AT HOME OPHTHALMOLOGY RETINAL SCAN 2022-05-18 13:20:49 Clarissa Roberson [facility] MAMMOGRAM BILAT SCREEN 2022-05-18 11:55:54 [facility] DIGITAL W/BALDOMERO CA 125 2022-05-07 12:42:00 Blayne Robbins [facility] CBC/DIFF 2022-05-07 12:42:00 [facility] COMPREHENSIVE METABOLIC 2022-05-07 12:42:00 Blayne Robbins [facility] PANEL MAGNESIUM 2022-05-07 12:42:00 Blayne Robbins ealt CBC 2022-05-07 12:42:00 Blayne Robbins [facility] MICROALBUMIN / CREATININE 2022-04-23 12:28:[address] [facility] URINE RATIO HEMOGLOBIN A1C 2022-04-23 12:21:00 Polly Warren [facility] COMPREHENSIVE METABOLIC 2022-04-23 12:21:00 Polly Warren [facility] PANEL CBC (WITHOUT DIFFERENTIAL) 2022-04-23 12:21:[address] [facility] CT ABDOMEN AND PELVIS 2022-04-15 14:21:[address] [facility] CONTRAST CT CHEST W CONTRAST 2022-04-15 14:21:00 Yodit Gonzalez [facility] HPV HIGH-RISK 2022-04-09 14:21:00 [facility] ENDOMETRIAL BIOPSY SUCTION 2022-04-09 14:13:[address] [facility] TYPE TISSUE EXAM 2022-04-09 14:04:00 Yodit Gonzalez [facility] PAP TEST CYTOLOGY 2022-04-09 14:04:[address] [facility] CREATININE 2022-03-18 14:43:00 Sweetie Grimes Located within [facility] CA 125 2022-03-16 10:51:00 Thalia Sutton h CA 19-9 2022-03-16 10:51:00 Thalia Sutton h CEA 2022-03-16 10:51:00 Thalia Sutton [facility] TRANSTHORACIC ECHO (TTE) 2022-02-10 09:55:00 Deysi Salter [facility] COMPLETE [id number] LEAD EKG 2022-02-03 15:41:10 Natali [facility] DIABETIC FOOT EXAM 2021-11-27 09:28:06 Salter, [facility]alth GLUCOSE POC 2021-11-27 09:24:00 Salter, [facility] GLUCOSE POC 2021-11-27 08:43:00 Salter, [facility] POC RAPID HIV 2021-11-27 00:00:00 Salter, [facility] POC URINE DIPSTICK, WITHOUT 2021-11-27 00:00:00 Salter, [facility] MICRO POC RAPID HIV 2021-11-27 00:00:00 Salter, [facility] Plan of Care Planned Activity Planned Date Details Comments Source Future Scheduled Test 2027-04-09 [facility] 00:00:00 malignant neoplasm of cervix (procedure) [code = 735596039] Future Scheduled Test 2027-04-09 [facility] 00:00:00 malignant neoplasm of cervix (procedure) [code = 889731565] Future Scheduled Test 2027-04-09 [facility] 00:00:00 malignant neoplasm of cervix (procedure) [code = 242233792] Future Scheduled Test 2027-04-09 [facility] 00:00:00 malignant neoplasm of cervix (procedure) [code = 370016701] Future Scheduled Test 2027-04-09 [facility] 00:00:00 malignant neoplasm of cervix (procedure) [code = 767075056] Future Scheduled Test 2027-04-09 [facility] 00:00:00 malignant neoplasm of cervix (procedure) [code = 361791936] Future Scheduled Test 2027-04-09 [facility] 00:00:00 malignant neoplasm of cervix (procedure) [code = 732101492] Future Scheduled Test 2027-04-09 [facility] 00:00:00 malignant neoplasm of cervix (procedure) [code = 334163481] Future Scheduled Test 2023-05-18 Breast Cancer Scrn [facility] 00:00:00 (Yearly) [code = Breast Cancer Scrn (Yearly)] Future Scheduled Test 2023-05-18 DM Retinal Exam [facility] 00:00:00 (Yearly) [code = DM Retinal Exam (Yearly)] Future Scheduled Test 2023-05-18 Breast Cancer Scrn [facility] 00:00:00 (Yearly) [code = Breast Cancer Scrn (Yearly)] Future Scheduled Test 2023-05-18 DM Retinal Exam [facility] 00:00:00 (Yearly) [code = DM Retinal Exam (Yearly)] Future Scheduled Test 2023-05-18 Breast Cancer Scrn [facility] 00:00:00 (Yearly) [code = Breast Cancer Scrn (Yearly)] Future Scheduled Test 2023-05-18 DM Retinal Exam [facility] 00:00:00 (Yearly) [code = DM Retinal Exam (Yearly)] Future Scheduled Test 2023-04-23 Hemoglobin A1c [facility] 00:00:00 measurement (procedure) [code = 82004684] Future Scheduled Test 2023-04-23 Urine screening for [facility] 00:00:00 protein (procedure) [code = 681079658] Future Scheduled Test 2023-04-23 Hemoglobin A1c [facility] 00:00:00 measurement (procedure) [code = 40346651] Future Scheduled Test 2023-04-23 Hemoglobin A1c [facility] 00:00:00 measurement (procedure) [code = 98538538] Future Scheduled Test 2023-04-23 Hemoglobin A1c [facility] 00:00:00 measurement (procedure) [code = 53881891] Future Scheduled Test 2022-11-27 DM Foot Exam (Yearly) [facility] 00:00:00 [code = DM Foot Exam (Yearly)] Future Scheduled Test 2022-11-27 DM Foot Exam (Yearly) [facility] 00:00:00 [code = DM Foot Exam (Yearly)] Future Scheduled Test 2022-11-27 DM Foot Exam (Yearly) [facility] 00:00:00 [code = DM Foot Exam (Yearly)] Future Scheduled Test 2022-11-27 DM Foot Exam (Yearly) [facility] 00:00:00 [code = DM Foot Exam (Yearly)] Future Scheduled Test 2021-07-20 COVID-19 Vaccine (4 - [facility] 00:00:00 Booster for Pfizer series) [code = COVID-19 Vaccine (4 - Booster for Pfizer series)] Future Scheduled Test 2021-07-20 COVID-19 Vaccine (4 - [facility] 00:00:00 Booster for Pfizer series) [code = COVID-19 Vaccine (4 - Booster for Pfizer series)] Future Scheduled Test 2021-06-23 DM Retinal Exam [facility] 00:00:00 (Yearly) [code = DM Retinal Exam (Yearly)] Future Scheduled Test 2019 [facility] 00:00:00 malignant neoplasm of colon (procedure) [code = 860634625] Future Scheduled Test 2019 [facility] 00:00:00 malignant neoplasm of colon (procedure) [code = 695910476] Future Scheduled Test 2019 [facility] 00:00:00 malignant neoplasm of colon (procedure) [code = 331545783] Future Scheduled Test 2019 [facility] 00:00:00 malignant neoplasm of colon (procedure) [code = 084588504] Future Scheduled Test 2016-12-03 CORONARY ARTERY [facility] 00:00:00 DISEASE AGE 18 AND UP [code = CORONARY ARTERY DISEASE AGE 18 AND UP] Future Scheduled Test 2016-12-03 CORONARY ARTERY [facility] 00:00:00 DISEASE AGE 18 AND UP [code = CORONARY ARTERY DISEASE AGE 18 AND UP] Future Scheduled Test 2016-12-03 CORONARY ARTERY Alber[facility] 00:00:00 DISEASE AGE 18 AND UP [code = CORONARY ARTERY DISEASE AGE 18 AND UP] Future Scheduled Test 2016-12-03 CORONARY ARTERY Alber[facility] 00:00:00 DISEASE AGE 18 AND UP [code = CORONARY ARTERY DISEASE AGE 18 AND UP] Future Scheduled Test 2015-05-08 Breast Cancer Scrn [facility] 00:00:00 (Yearly) [code = Breast Cancer Scrn (Yearly)] Future Scheduled Test 2013-08-31 Imm Pneumococcal 0-[address] [facility] 00:00:00 (2 - PCV) [code = Imm Pneumococcal 0-64 (2 - PCV)] Future Scheduled Test 2013-08-31 Imm Pneumococcal 0-[address] [facility] 00:00:00 (2 - PCV) [code = Imm Pneumococcal 0-64 (2 - PCV)] Future Scheduled Test 2013-08-31 Imm Pneumococcal 0-[address] [facility] 00:00:00 (2 - PCV) [code = Imm Pneumococcal 0-64 (2 - PCV)] Future Scheduled Test 2013-08-31 Imm Pneumococcal 0-[address] [facility] 00:00:00 (2 - PCV) [code = Imm Pneumococcal 0-64 (2 - PCV)] Future Scheduled Test 1970-04-04 COVID-19 Vaccine (#1) [facility] 00:00:00 [code = COVID-19 Vaccine (#1)] Future Scheduled Test 1969 Fluoride Varnish [code [facility] 00:00:00 = Fluoride Varnish] Future Scheduled Test 1969 Fluoride Varnish [code [facility] 00:00:00 = Fluoride Varnish] Future Scheduled Test 1969 Fluoride Varnish [code [facility] 00:00:00 = Fluoride Varnish] Future Scheduled Test 1969 Fluoride Varnish [code [facility] 00:00:00 = Fluoride Varnish] Future Appointment 2022-06-22 Thalia MUNOZ, [address] [facility] 10:00:00 [place] [address] Encounters Start End Encounter Admission Attending Care Care Encounter Source Date/Time Date/Time Type Type Clinicians Facility Department ID 2022-07-12 2022-07-12 Outpatient [facility] [id number] [place] 00:00:00 00:00:00 Health 2022-07-08 2022-07-08 [facility] [id number] [place] [facility] 2022-07-06 Outpatient [facility] [id number] [place] 00:00:00 00:00:00 Health 2022-06-29 2022-06-29 Outpatient [facility] [id number] [place] 00:00:00 00:00:00 Health 2022-06-28 2022-06-28 [facility] [id number] [place] 00:00[facility] 2022-06-22 2022-06-22 [facility] [id number] [place] 00:00:00 00:00:00 THALIAFormerly [facility] 2022-06-21 2022-06-21 Outpatient [facility] [id number] [place] 00:00:00 00:00:00 Health 2022-06-18 2022-06-18 Outpatient [facility] [id number] [place] 00:00:00 00:00:00 Health 2022-06-18 2022-06-18 Outpatient [facility] [id number] [place] 00:00:00 00:00:00 Health 2022-06-16 2022-06-[address] [facility] [id number] [place] 09:40:00 10:00:00 Encounter Heal 2022-06-16 2022-06-16 Outpatient YANN ANTHONY [facility] [id number] [place] 06:32:06 06:32:06 Health 2022-06-16 2022-06-16 [facility] [id number] [place] 00:00:00 00:00:00 Only Paul [facility] 2022-06-11 2022-06-11 [facility] [id number] [place] 10:50:28 12:27:51 MARY Armijo 2022-06-11 2022-06-[address] [facility] [id number] [place] 10:30:00 12:27:51 Visit [facility] 2022-06-09 2022-06-09 [facility] [id number] [place] 00:00:00 00:00:00 [facility] 2022-06-08 2022-06-08 Outpatient YANN ANTHONY [facility] [id number] [place] 12:09:22 12:34:38 Health 2022-06-08 2022-06-[address] [facility] [id number] [place] 10:45:00 12:34:38 on Health 2022-06-08 2022-06-08 Outpatient JAC [facility] [id number] [place] 10:42:01 12:13:28 [facility] 2022-06-08 2022-06-[address] [facility] [id number] [facility] 10:00:00 12:13:28 Visit [facility] 2022-06-07 2022-06-07 Outpatient [facility] [id number] [place] 00:00:00 00:00:00 Health 2022-06-05 2022-06-05 [facility] [id number] [place] 00:00:00 00:00:00 Triage [facility] 2022-06-03 2022-06-03 [facility] [id number] [place] 13:00:00 14:43:50 Encounter [facility] 2022-06-03 2022-06-03 [facility] [id number] [place] 06:06:06 14:43:50 [facility] 2022-06-03 2022-06-03 Outpatient GC_SEFP_Riv PRIV PRIV [id number] [facility] 00:00:00 00:00:00 era_A [id number] Medica l 2022-06-03 2022-06-03 [facility] [id number] [place] 00:00:00 00:00:00 [facility] 2022-05-31 2022-05-[address] [facility] [id number] [place] 08:18:37 15:17:48 [facility] 2022-05-31 2022-05-[address] [facility] [id number] [place] 07:30:00 15:17:48 [facility] 2022-05-28 2022-05-28 [facility] [id number] [place] 13:00:00 14:23:26 Visit Patricia [facility] 2022-05-28 2022-05-28 [facility] [id number] [place] 13:00:00 14:23:26 Visit Patricia [facility] 2022-05-28 2022-05-28 Outpatient [facility] [id number] [place] 12:14:14 12:26:45 Health 2022-05-28 2022-05-28 [facility] [id number] [place] 00:00:00 00:00:00 [facility] 2022-05-26 2022-05-[address] [facility] [id number] [facility] 13:00:00 13:39:52 Visit Jamel [facility] 2022-05-26 2022-05-[address] [facility] [id number] [facility] 13:00:00 13:39:52 [facility] [facility] 2022-05-18 2022-05-18 [facility] [id number] [place] 11:07:14 23:59:00 [facility] 2022-05-18 2022-05-18 [facility] [id number] [place] 11:07:14 23:59:00 Encounter [facility] 2022-05-18 2022-05-[address] [facility] [id number] [place] 13:00:00 14:35:01 Visit Polly Mason [facility] 2022-05-18 2022-05-[address] [facility] [id number] [place] 13:00:00 14:35:01 Visit Polly Mason [facility] 2022-05-18 2022-05-18 [facility] Patricia [facility] [id number] [place] 13:30:00 13:30:00 Procedure Clarissa [facility] 2022-05-18 2022-05-[address] [facility] [id number] [place] 13:30:00 13:30:00 Procedure Clarissa K[facility] 2022-05-18 2022-05-18 Outpatient [facility] [id number] [place] 00:00:00 00:00:00 [facility] 2022-05-18 2022-05-18 [facility] Patricia [facility] [id number] [place] 00:00:00 00:00:00 Only Clarissa Fuller [facility] 2022-05-18 2022-05-18 [facility] Briana [facility] [id number] [place] 00:00:00 00:00:00 Only Polly Mason [facility] 2022-05-18 2022-05-[address] [facility] [id number] [place] 00:00:00 00:00:00 [facility] 2022-05-18 2022-05-[address] [facility] [id number] [place] 00:00:00 00:00:00 Only Polly Mason [facility] 2022-05-18 2022-05-[address] [facility] [id number] [place] 00:00:00 00:00:00 Only Polly Mason [facility] 2022-05-18 2022-05-[address] [facility] [id number] [place] 00:00:00 00:00:00 Meroe [facility] 2022-05-18 2022-05-18 [facility] [id number] [place] 00:00:00 00:00:00 Only Polly Mason [facility] 2022-05-18 2022-05-18 Caroline [facility] [id number] [place] 00:00:00 00:00:00 Only Clarissa Fuller [facility] 2022-05-13 2022-05-13 [facility] [id number] [place] 00:00:00 00:00:00 [facility] 2022-05-10 2022-05-[address] [facility] [id number] [place] 08:30:00 17:48:10 [facility] 2022-05-10 2022-05-[address] [facility] [id number] [place] 08:30:00 17:48:10 [facility] Blayne [facility] 2022-05-07 2022-05-07 Office [facility] [id number] [place] 13:30:00 14:37:11 Visit Brayan Mason [facility] 2022-05-07 2022-05-07 Office [facility] [id number] [place] 13:30:00 14:37:11 Visit Brayan Mason [facility] 2022-05-07 2022-05-07 Outpatient [facility] [id number] [place] 12:38:13 12:42:58 [facility] 2022-05-07 2022-05-07 [facility] [id number] [place] 00:00:00 00:00:00 [facility] 2022-05-06 2022-05-06 [facility] [id number] [place] 00:00:00 00:00:00 [facility] 2022-05-05 2022-05-05 [facility] [id number] [place] 00:00:00 00:00:00 Only Clarissa Fuller [facility] 2022-05-05 2022-05-[address] [facility] [id number] [place] 00:00:00 00:00:00 Only Clarissa Fuller [facility] 2022-04-30 2022-04-30 Out[facility] [id number] [place] 00:00:00 00:00:00 LAVERNE Armijo 2022-04-29 2022-04-[address] [facility] [id number] [place] 14:40:00 14:45:59 Visit Jen Orta Kaitlyn M 2022-04-29 2022-04-[address] [facility] [id number] [place] 14:40:00 14:45:59 Visit Jen Orta Kaitlyn M 2022-04-29 2022-04-29 Outpatient [facility] [id number] [place] 13:41:59 13:43:09 [facility] 2022-04-29 2022-04-29 Outpatient [facility] [id number] [place] 00:00:00 00:00:00 [facility] 2022-04-29 2022-04-29 [facility] [id number] [place] 00:00:00 00:00:00 Education Jessica [facility] 2022-04-29 2022-04-[address] [facility] [id number] [place] 00:00:00 00:00:00 Education Jessica [facility] 2022-04-28 2022-04-28 [facility] [id number] [place] 00:00:00 00:00:00 Review Anna Lopes [facility] 2022-04-28 2022-04-28 [facility] [id number] [place] 00:00:00 00:00:00 Review Anna Lopes [facility] 2022-04-26 2022-04-26 Outpatient [facility] [id number] [place] 00:00:00 00:00:00 [facility] 2022-04-23 2022-04-[address] [facility] [id number] [place] 12:00:00 13:58:38 [facility] 2022-04-23 2022-04-[address] [facility] [id number] [place] 12:00:00 13:58:38 Visit [facility] 2022-04-23 2022-04-23 Outpatient [facility] [id number] [place] 12:19:18 12:22:01 [facility] 2022-04-23 2022-04-[address] [facility] [id number] [place] 09:20:00 12:17:06 Visit [facility] Polly Warren 2022-04-23 2022-04-[address] [facility] [id number] [place] 09:20:00 12:17:06 Visit [facility] Polly Warren 2022-04-23 2022-04-23 [facility] [id number] [place] 00:00:00 00:00:00 [facility] 2022-04-23 2022-04-23 [facility] [id number] [place] 00:00:00 00:00:00 [facility] 2022-04-23 2022-04-23 Outpatient [facility] [id number] [place] 00:00:00 00:00:00 [facility] 2022-04-23 2022-04-[address] [facility] [id number] [place] 00:00:00 00:00:00 Only Polly Mason [facility] 2022-04-23 2022-04-[address] [facility] [id number] [place] 00:00:00 00:00:00 Polly Mason [facility] 2022-04-23 2022-04-[address] [facility] [id number] [place] 00:00:00 00:00:00 Only [facility] 2022-04-23 2022-04-[address] [facility] [id number] [place] 00:00:00 00:00:00 Only Polly Mason [facility] 2022-04-23 2022-04-[address] [facility] [id number] [place] 00:00:00 00:00:00 Polly Mason [facility] 2022-04-23 2022-04-[address] [facility] [id number] [place] 00:00:00 00:00:00 Only [facility] 2022-04-15 2022-04-15 [facility] [id number] [place] 13:20:00 14:24:27 Procedure [facility] 2022-04-15 2022-04-15 [facility] [id number] [place] 13:20:00 14:24:27 Procedure [facility] 2022-04-14 2022-04-[address] [facility] [id number] [place] 00:00:00 00:00:00 [facility] 2022-04-14 2022-04-[address] [facility] [id number] [place] 00:00:00 00:00:00 [facility] 2022-04-14 2022-04-[address] [facility] [id number] [place] 00:00:00 00:00:00 [facility] 2022-04-14 2022-04-[address] [facility] [id number] [place] 00:00:00 00:00:00 [facility] 2022-04-13 2022-04-13 Nurse Lewis, [facility] [id number] [place] 00:00:00 00:00:00 [facility] 2022-04-13 2022-04-13 [facility] Patricia, [facility] [id number] [place] 00:00:00 00:00:00 Only Clarissa Fuller [facility] 2022-04-13 2022-04-[address] [facility] [id number] [place] 00:00:00 00:00:00 [facility] 2022-04-13 2022-04-[address] [facility] [id number] [place] 00:00:00 00:00:00 Deysi [facility]ian [facility] 2022-04-13 2022-04-[address] [facility] [id number] [place] 00:00:00 00:00:00 Misba [facility] 2022-04-13 2022-04-[address] [facility] [id number] [place] 00:00:00 00:00:00 , [facility] 2022-04-13 2022-04-[address] [facility] [id number] [place] 00:00:00 00:00:00 [facility]ha [facility] 2022-04-13 2022-04-[address] [facility] [id number] [place] 00:00:00 00:00:00 Thalia [facility] 2022-04-13 2022-04-13 Nurse Lewis, [facility] [id number] [place] 00:00:00 00:00:00 Triage Elijah Armijo 2022-04-13 2022-04-[address] [facility] [id number] [place] 00:00:00 00:00:00 Only Clarissa Fuller [facility] 2022-04-13 2022-04-13 Refill Cornelio, [facility] [id number] [place] 00:00:00 00:00:00 [facility] 2022-04-13 2022-04-[address] [facility] [id number] [place] 00:00:00 00:00:00 [facility] 2022-04-13 2022-04-13 Refill Dov, [facility] [id number] [place] 00:00:00 00:00:00 [facility] 2022-04-13 2022-04-[address] [facility] [id number] [place] 00:00:00 00:00:00 , [facility] 2022-04-13 2022-04-[address] [facility] [id number] [place] 00:00:00 00:00:00 Radha [facility] 2022-04-13 2022-04-[address] [facility] [id number] [place] 00:00:00 00:00:00 Thalia [facility] 2022-04-12 2022-04-[address] [facility] [id number] [place] 00:00:00 00:00:00 [facility] 2022-04-12 2022-04-[address] [facility] [id number] [place] 00:00:00 00:00:00 Jugnu B [facility] 2022-04-09 2022-04-[address] [facility] [id number] [place] 11:30:00 14:28:10 Visit [facility] 2022-04-09 2022-04-[address] [facility] [id number] [place] 11:30:00 14:28:10 Visit Yodit [facility] 2022-04-09 2022-04-09 [facility] [id number] [place] 00:00:00 00:00:00 MARY Aleksander 2022-04-09 2022-04-09 Caroline [facility] [id number] [place] 00:00:00 00:00:00 Only Yodit K[facility] 2022-04-09 2022-04-09 [address] [facility] [id number] [place] 00:00:00 00:00:00 Only Yodit Kraft [facility] 2022-03-18 2022-03-18 Outpatient [facility] [id number] [place] 14:40:35 14:44:03 [facility] 2022-03-18 2022-03-18 [facility] [id number] [place] 13:30:00 14:28:59 Visit [facility] 2022-03-18 2022-03-18 [facility] [id number] [place] 13:30:00 14:28:59 Visit [facility] 2022-03-18 2022-03-18 [facility] [id number] [place] 00:00:00 00:00:00 [facility] 2022-03-17 2022-03-[address] [facility] [id number] [place] 00:00:00 00:00:00 Triage Laporsha Healt 2022-03-17 2022-03-[address] [facility] [id number] [place] 00:00:00 00:00:00 Triage Laporsha Healt 2022-03-16 2022-03-16 Outpatient LESLEY, [facility] [id number] [place] 10:43:39 10:51:12 [facility] 2022-03-16 2022-03-16 Outpatient LESLEY, [facility] [id number] [place] 00:00:00 00:00:00 [facility] 2022-03-16 2022-03-16 Outpatient LESLEY, [facility] [id number] [place] 00:00:00 00:00:00 [facility] 2022-03-15 2022-03-15 Refill Salter, [facility] [id number] [place] 00:00:00 00:00:00 Deysi regalado 2022-03-15 2022-03-15 Refill Dov, [facility] [id number] [place] 00:00:00 00:00:00 [facility] 2022-03-15 2022-03-15 Refill Lesley, [facility] [id number] [place] 00:00:00 00:00:00 [facility] 2022-03-15 2022-03-15 Refill Salter, [facility] [id number] [place] 00:00:00 00:00:00 Deysi regalado 2022-03-15 2022-03-15 Refill Dov, [facility] [id number] [place] 00:00:00 00:00:00 [facility]22-03-15 2022-03-15 Refill Lesley, [facility] [id number] [place] 00:00:00 00:00:00 Thalia [facility] 2022-03-08 2022-03-08 Orders Lesley, [facility] [id number] [place] 00:00:00 00:00:00 Only Thalia [facility] 2022-03-08 2022-03-08 Orders Lesley, [facility] [id number] [place] 00:00:00 00:00:00 Only Thalia [facility] 2022-03-04 2022-03-04 Office Lesley, [facility] [id number] [place] 10:20:00 11:47:45 Visit Thalia [facility] 2022-03-04 2022-03-04 Office Lesley, [facility] [id number] [place] 10:20:00 11:47:45 Visit [facility] 2022-02-16 2022-02-[address] [facility] [id number] [place] 00:00:00 00:00:00 [facility] 2022-02-16 2022-02-16 Refill Dov, [facility] [id number] [place] 00:00:00 00:00:00 [facility] 2022-02-16 2022-02-[address] [facility] [id number] [place] 00:00:00 00:00:00 , [facility] 2022-02-16 2022-02-[address] [facility] [id number] [place] 00:00:00 00:00:00 [facility] 2022-02-16 2022-02-16 Refill Dov, [facility] [id number] [place] 00:00:00 00:00:00 [facility] 2022-02-16 2022-02-[address] [facility] [id number] [place] 00:00:00 00:00:00 , [facility] 2022-02-10 2022-02-10 [facility] [id number] [place] 09:00:00 23:59:00 Encounter [facility] 2022-02-10 2022-02-10 [facility] [id number] [place] 09:00:00 23:59:00 Encounter [facility] 2022-02-10 2022-02-10 Outpatient [facility] [id number] [place] 00:00:00 00:00:00 [facility] 2022-02-03 2022-02-[address] [facility] [id number] [place] 15:31:00 18:28:04 [facility] 2022-02-03 2022-02-[address] [facility] [id number] [place] 15:31:00 18:28:04 [facility] 2022-02-03 2022-02-03 Emergency [facility] [id number] [place] 00:00:00 00:00:00 [facility] 2022-01-21 2022-01-21 Telephone Arin Ramirez [facility] 1.2. [id number] [id number] [place] 00:00:00 00:00:00 Arin Ramirez [facility] 350.1.13.5 8 [place] [id number] 2022-01-21 2022-01-21 Telephone Arin Ramirez [facility] 1.2. 840.114 [id number] [place] 00:00:00 00:00:00 Arin Ramirez [facility] 350.1.13.5 8 [facility] 1 [id number] 2022-01-19 2022-01-[address] [facility] [id number] [place] 13:40:00 14:24:36 Visit [facility] 2022-01-19 2022-01-[address] [facility] [id number] [place] 13:40:00 14:24:36 Visit Th[facility] 2022-01-19 2022-01-[address] [facility] [id number] [place] 00:00:00 00:00:00 Only [facility] 2022-01-19 2022-01-[address] [facility] [id number] [place] 00:00:00 00:00:00 Only Th[facility] 2022-01-18 2022-01-18 Telephone JEEVAN Romero [id number] [place] 00:00:00 00:00:00 Teodoro DONOHUE [id number] Health OD [id number] 2022-01-08 2022-01-08 [facility] [id number] [place] 00:00:00 00:00:00 [facility] 2022-01-06 2022-01-06 Office JEEVAN Romero [id number] [place] 11:00:00 12:19:59 Visit Teodoro DONOHUE 350.1.13.58 Health OD [id number] 2021-12-15 2021-12-15 Emergency E ALCANTER, [facility] 7510 [facility]BL 08:06:00 15:30:00 JUVENTINO 2021-12-10 2021-12-10 Outpatient JOIE, [facility] [id number] [place] 00:00:00 00:00:00 [facility] 2021-12-09 2021-12-09 Outpatient [facility] [id number] [place] 00:00:00 00:00:00 [facility] 2021-12-09 2021-12-09 Outpatient SALTER, [facility] [id number] [place] 00:00:00 00:00:00 [facility] 2021-12-08 2021-12-08 Outpatient [facility] [id number] [place] 00:00:00 00:00:00 [facility] 2021-12-04 2021-12-04 [facility] [id number] [place] 23:59:00 23:59:00 Encounter [facility] 2021-12-04 2021-12-04 [facility] [id number] [place] 23:59:00 23:59:00 Encounter [facility] 2021-12-04 2021-12-04 Outpatient SALTER, [facility] [id number] [place] 00:00:00 00:00:00 [facility] 2021-12-04 2021-12-04 [facility] [id number] [place] 00:00:00 00:00:00 [facility] 2021-12-02 2021-12-02 [facility] [id number] [place] 00:00:00 00:00:00 [facility] 2021-11-30 2021-11-30 Refill Salter, [facility] [id number] [place] 00:00:00 00:00:00 [facility] 2021-11-30 2021-11-30 Refill Salter, [facility] [id number] [place] 00:00:00 00:00:00 [facility] 2021-11-27 2021-11-27 [facility] [id number] [place] 08:20:00 09:47:21 Visit [facility] 2021-11-27 2021-11-27 Office Salter, [facility] [id number] [place] 08:20:00 09:47:21 Visit [facility] 2021-11-27 2021-11-27 Orders Joie, [facility] [id number] [place] 00:00:00 00:00:00 Only [facility] 2021-11-27 2021-11-27 [facility] [id number] [place] 00:00:00 00:00:00 Only Deysi regalado 2021-11-13 2021-11-13 Emergency E [address] [place] 10:19:00 12:21:00 SABHA 2021-06-23 2021-06-23 Orders Salter [facility] [id number] [place] 00:00:00 00:00:00 [facility] 2021-06-23 2021-06-23 Orders Joie [facility] [id number] [place] 00:00:00 00:00:00 Only [facility] 2020-07-02 2020-07-02 Office ROMULO Juan Encoun ter/ Legacy 00:00:00 00:00:00 Visit Sammie [id number] [facility] samantha [id number] [facility] 2020-07-02 2020-07-02 Office Sammie Juan [facility] Encounter/ Legacy 00:00:00 00:00:00 Visit Alexandra Nagel [id number] Communi [id number] ty Health 2020-06-23 2020-06-23 Office ROMULO Mcwilliams [facility] Encounter / Legacy 00:00:00 00:00:00 Visit Juany [id number] Co mmuni 995029 [facility] 2020-06-23 2020-06-23 Office Juany Mcwilliams [facility] Encounter/ Legacy 00:00:00 00:00:00 Visit Kiarra Silva [id number] Communi 638621 ty Health 2020-04-25 2020-04-25 Emergency [facility] [address] 14:34:00 16:16:00 ANDREA 2019-09-26 2019-09-[address] 0097 [facility] 16:11:00 21:45:00 MALIK 2019-05-24 2019-05-24 Inpatient E [facility] MED 7506 [facility] 04:42:00 04:42:00 2018-11-15 2018-11-15 Office Status, Fax ROMULO DOMINGUEZ Encoun ter/ Legacy 00:00:00 00:00:00 Visit [id number] Com samantha [id number] [facility] 2018-11-10 2018-11-10 Office ShrikaROMULO espinoza Encount er/ Legacy 00:00:00 00:00:00 Visit Clarissa [id number] Com samantha [id number] [facility] 2018-11-10 2018-11-10 Office JasonnathanielClarissa regalado ANGELICA ANGELICA Encounter/ Legacy 00:00:00 00:00:00 Visit Re Owen [id number] Mallory Amaya [id number] ty [facility] 2018-08-15 2018-08-15 Office JasonnathanielClarissa regalado [facility]/ Legacy 00:00:00 00:00:00 Visit Caren Beck [id number] Communi 484457 Health 2018-08-14 2018-08-14 Office AdROMULO Encounter/ Legacy 00:00:00 00:00:00 Visit Hoa [id number] Com samantha [id number] ty Health 2018-08-14 2018-08-14 Office [facility]/ Legacy 00:00:00 00:00:00 Visit Hoa [id number] Com samantha 526452 [facility] 2018-08-14 2018-08-14 Office Ad [facility] En[facility]/ Legacy 00:00:00 00:00:00 Visit Hoa [id number] Com samantha [id number] [facility] 2018-08-14 2018-08-14 Office Ad [facility] Enco unter/ Legacy 00:00:00 00:00:00 Visit Ragini Toro [id number] Communi [id number] Health 2018-07-11 2018-07-11 Office JasonnathanielhumbleMoiseClarissa [facility] Encounter/ Legacy 00:00:00 00:00:00 Visit Caren Beck [id number] Darius Chowdhury,, [place] 085273 ty Health 2018-07-06 2018-07-06 Office ANGELICA Maldonado ANGELICA Encount er/ Legacy 00:00:00 00:00:00 Visit Clarissa [id number] Com samantha [id number] Health 2018-07-04 2018-07-04 Office [facility] En[facility]/ Legacy 00:00:00 00:00:00 Visit Radha Tom [id number] [facility] Casandra Kwan 895592 Health 2018-07-04 2018-07-04 Office [facility]/ Legacy 00:00:00 00:00:00 Visit Clarissa [id number] Com samantha [id number] ty Health 2018-07-04 2018-07-04 Office [facility]/ Legacy 00:00:00 00:00:00 Visit Clarissa [id number] Com samantha [id number] ty Health 2018-07-04 2018-07-04 [facility] Encount er/ Legacy 00:00:00 00:00:00 Visit Clarissa [id number] Com samantha [id number] ty Health 2018-06-05 2018-06-05 Office [facility] Legacy [facility]:00 00:00:00 Visit Caren Beck [id number] Commun [id number] ty Health 2018-05-31 2018-05-31 Office [facility] Legacy 00:00:00 00:00:00 Visit Caren Beck [id number] Communi [id number] ty Health 2018-05-02 2018-05-02 Office Eron [facility] Encount er/ Legacy 00:00:00 00:00:00 Visit Clarissa [id number] Com samantha [id number] ty Health 2018-05-02 2018-05-02 Office [facility]/ Legacy 00:00:00 00:00:00 Visit Clarissa [id number] Com samantha [id number] ty Health 2018-03-27 2018-03-27 [facility]count er/ Legacy 00:00:00 00:00:00 Visit Clarissa [id number] Com samantha [id number] ty Health 2018-03-27 2018-03-27 [facility]count er/ Legacy 00:00:00 00:00:00 Visit Clarissa [id number] Com samantha [id number] ty Health 2018-03-27 2018-03-27 [facility] Legacy 00:00:00 00:00:00 Visit Clarissa [id number] Com samantha [id number] Health 2018-03-27 2018-03-27 [facility] Legacy 00:00:00 00:00:00 Visit Clarissa [id number] Com samantha [id number] Health 2018-01-25 2018-01-25 [facility] Legacy 00:00:00 00:00:00 Visit Clarissa [id number] Com samantha [id number] Health 2018-01-25 2018-01-25 [facility] 00:00:00 Visit Clarissa [id number] Com samantha [id number] Health 2018-01-25 2018-01-25 [facility] 00:00:00 00:00:00 Visit Clarissa [id number] Com samantha [id number] Health 2018-01-25 2018-01-25 [facility]:00:00 00:00:00 Visit Clarissa [id number] Com samantha [id number] ty Health 2017-12-12 2017-12-12 [facility] 00:00:00 00:00:00 Visit Clarissa [id number] Com samantha [id number] Health 2017-12-10 2017-12-10 [facility] Legacy 00:00:00 00:00:00 Visit Clarissa [id number] Com samantha [id number] ty Health 2017-11-01 2017-11-01 Office [facility] Encount er/ Legacy 00:00:00 00:00:00 Visit Radha [id number] Com samantha [id number] ty Health 2017-10-28 2017-10-28 [facility] 00:00:00 00:00:00 Visit Clarissa [id number] Com samantha [id number] Health 2017-10-28 2017-10-28 Office [facility] Encount er/ Legacy 00:00:00 00:00:00 Visit Clarissa [id number] Com samantha [id number] Health 2017-10-28 2017-10-28 Office [facility] Encounter/ Legacy 00:00:00 00:00:00 Visit Napoleon [facility] [id number] [id number] 2017-10-28 2017-10-28 Office [facility] Encount er/ Legacy 00:00:00 00:00:00 Visit Clarissa [id number] Com samantha [id number] Health 2017-10-28 2017-10-28 Office [facility] Encoun er/ Legacy 00:00:00 00:00:00 Visit Clarissa [id number] Com samantha [id number] Health 2017-10-28 2017-10-28 Office [facility] Encounter/ Legacy 00:00:00 00:00:00 Visit Ailyn Zavala [id number] [facility] Radha Tom 958136 ty Napoleon Ramirez FaQuazia 2017-08-11 2017-08-11 Office [facility] Encount er/ Legacy 00:00:00 00:00:00 Visit Clarissa [id number] Com samantha [id number] Health 2017-08-11 2017-08-11 Office [facility] Encount er/ Legacy 00:00:00 00:00:00 Visit Clarissa [id number] Com samantha [id number] ty Health 2017-08-09 2017-08-09 Office [facility] Encounter/ Legacy 00:00:00 00:00:00 Visit Krystina Morrow [id number] Darius Reece King [id number] [facility] 2017-08-09 2017-08-09 Office [facility] Encount er/ Legacy 00:00:00 00:00:00 Visit Clarissa [id number] Com samantha [id number] Health 2017-08-06 2017-08-[address] Encount er/ Legacy 00:00:00 00:00:00 Visit Clarissa [id number] Com samantha [id number] Health 2017-08-02 2017-08-02 [facility] Encount er/ Legacy 00:00:00 00:00:00 Visit Clarissa [id number] Com samantha [id number] ty Health 2017-08-02 2017-08-02 [facility]:00 00:00:00 Visit Clarissa [id number] Com samantha [id number] Health 2017-08-02 2017-08-02 Office [facility] Encounter/ Legacy 00:00:00 00:00:00 Visit Kiarra Aguirre [id number] [place] [address] 878383 Health 2017-07-30 2017-07-30 Office [facility] Encount er/ Legacy 00:00:00 00:00:00 Visit Clarissa [id number] Com samantha [id number] ty Health 2017-07-30 2017-07-30 Office [facility] Encount er/ Legacy 00:00:00 00:00:00 Visit Clarissa [id number] Com samantha [id number] ty Health 2017-07-30 2017-07-30 [facility] Encount er/ Legacy 00:00:00 00:00:00 Visit Clarissa [id number] Com samantha [id number] ty Health 2017-07-30 2017-07-30 Office [facility] Encount er/ Legacy 00:00:00 00:00:00 Visit Clarissa [id number] Com samantha [id number] ty Health 2017-07-30 2017-07-30 Office [facility] Encounter/ Legacy 00:00:00 00:00:00 Visit Radha Tom [id number] [facility] Timmy Cohen [id number] Health 2017-06-29 2017-06-29 Office [facility] Encount er/ Legacy 00:00:00 00:00:00 Visit Clarissa [id number] Com samantha [id number] Health 2017-06-29 2017-06-29 Office [facility] Encount er/ Legacy 00:00:00 00:00:00 Visit Clarissa [id number] Com samantha [id number] Health 2017-06-29 2017-06-29 Office [facility] Encount er/ Legacy 00:00:00 00:00:00 Visit Clarissa [id number] Com samantha [id number] Health 2017-06-29 2017-06-29 Office [facility] Encount er/ Legacy 00:00:00 00:00:00 Visit Clarissa [id number] Com samantha [id number] [facility] 2017-06-26 2017-06-26 [facility] Encount er/ Legacy 00:00:00 00:00:00 Visit Clarissa [id number] Com samantha [id number] Health 2017-06-26 2017-06-26 Office [facility] Encount er/ Legacy 00:00:00 00:00:00 Visit Clarissa [id number] Com samantha [id number] Health 2017-06-08 2017-06-08 Office [facility] Encounter/ Legacy 00:00:00 00:00:00 Visit Kiarra Aguirre [id number] [address] Musa 88974 0 Health 2017-06-03 2017-06-03 [facility] Encount er/ Legacy 00:00:00 00:00:00 Visit Clarissa [id number] Com samantha [id number] Health 2017-06-03 2017-06-03 [facility] Encount er/ Legacy 00:00:00 00:00:00 Visit Clarissa [id number] Com samantha [id number] ty Health 2017-05-06 2017-05-06 Office [facility] Encount er/ Legacy 00:00:00 00:00:00 Visit Clarissa [id number] Com samantha [id number] [facility] 2017-05-04 2017-05-04 Office [facility] Encount er/ Legacy 00:00:00 00:00:00 Visit Clarissa [id number] Com samantha [id number] Health 2017-05-01 2017-05-01 Office [facility] Encount er/ Legacy 00:00:00 00:00:00 Visit Clarissa [id number] Com samantha [id number] Health 2017-04-06 2017-04-06 Office [facility] Encount er/ Legacy 00:00:00 00:00:00 Visit Clarissa [id number] Com samantha [id number] Health 2017-04-04 2017-04-04 [facility] Encount er/ Legacy 00:00:00 00:00:00 Visit Clarissa [id number] Com samantha [id number] Health 2017-04-01 2017-04-01 [facility] Encount er/ Legacy 00:00:00 00:00:00 Visit Clarissa [id number] Com samantha [id number] Health 2017-03-06 2017-03-06 [facility] Encount er/ Legacy 00:00:00 00:00:00 Visit Clarissa [id number] Com samantha [id number] Health 2017-03-05 2017-03-05 [facility] Encount er/ Legacy 00:00:00 00:00:00 Visit Clarissa [id number] Com samantha [id number] Health 2017-02-27 2017-02-27 [facility] Encount er/ Legacy 00:00:00 00:00:00 Visit Clarissa [id number] Com samantha [id number] Health 2017-02-23 2017-02-23 [facility] Encount er/ Legacy 00:00:00 00:00:00 Visit Clarissa [id number] Com samantha [id number] Health 2017-01-30 2017-01-30 [facility] Encount er/ Legacy 00:00:00 00:00:00 Visit Clarissa [id number] Com samantha [id number] ty Health 2017-01-29 2017-01-29 [facility] Legacy 00:00:00 00:00:00 Visit Clarissa [id number] Com samantha [id number] ty Health 2016-12-20 2016-12-20 Office ShanalaraANGELICA ANGELICA Encount er/ Legacy 00:00:00 00:00:00 Visit Clarissa [id number] Com samantha [id number] ty Health 2016-12-19 2016-12-19 [facility]/ Legacy 00:00:00 00:00:00 Visit Clarissa [id number] Com samantha [id number] ty Health 2016-12-16 2016-12-16 [facility] En[facility]/ Legacy 00:00:00 00:00:00 Visit Kate [id number] Com samantha [id number] ty Health 2016-12-16 2016-12-16 [facility] Legacy 00:00:00 00:00:00 Visit Kate [id number] Com samantha [id number] ty Health 2016-12-16 2016-12-16 Office Kate Owen [facility] Enco unter/ Legacy 00:00:00 00:00:00 Visit Shikha Felton [id number] [address] 011025 ty Health 2016-10-15 2016-10-15 Office EronClarissa [facility] Encounter/ Legacy 00:00:00 00:00:00 Visit Kiarra Aguirre [id number] Commun Alexandria Palma 093810 ty Health 2016-08-14 2016-08-14 Office Eron [facility] Encount er/ Legacy 00:00:00 00:00:00 Visit Clarissa [id number] Com samantha [id number] ty Health 2016-08-14 2016-08-14 [facility] Legacy 00:00:00 00:00:00 Visit Aura Perry [id number] [address] 476055 ty Health 2016-07-27 2016-07-27 Outpatient [facility] [id number] [place] 11:29:47 11:29:47 Health 2016-07-27 2016-07-27 Outpatient [facility] [id number] [place] 09:10:43 09:10:43 Health 2016-07-27 2016-07-27 Outpatient [facility] [id number] [place] 00:00:00 00:00:00 Health 2016-06-30 2016-06-30 Office Radha Tom [facility] Encounter/ Legacy 00:00:00 00:00:00 Visit Clarissa Maldonado [id number] CommunSabrina Correa 65030 0 ty [place] 2016-06-30 2016-06-30 Office ROMULO Boateng [facility] Encounte r/ Legacy 00:00:00 00:00:00 Visit Sabrina [id number] Co mmuni [id number] Health 2016-06-16 2016-06-16 Office ROMULO Maldonado [facility] Encount er/ Legacy 00:00:00 00:00:00 Visit Clarissa [id number] Com samantha [id number] Health 2016-06-16 2016-06-16 Office ROMULO Maldonado [facility] Encount er/ Legacy 00:00:00 00:00:00 Visit Clarissa [id number] Com samantha [id number] Health 2016-06-16 2016-06-16 [facility]/ Legacy 00:00:00 00:00:00 Visit Clarissa [id number] Com samantha [id number] Health 2016-06-16 2016-06-16 [facility]/ Legacy 00:00:00 00:00:00 Visit Napoleon Ramirez [id number] [address] 989484 Health 2016-06-16 2016-06-16 Office ROMULO Maldonado [facility] Encount er/ Legacy 00:00:00 00:00:00 Visit Clarissa [id number] Com samantha [id number] Health 2016-06-16 2016-06-16 [facility]/ Legacy 00:00:00 00:00:00 Visit Radha Tom [id number] Napoleon Coley [id number] [facility] 2016-05-27 2016-05-27 Outpatient [facility] [id number] [place] 12:22:18 12:22:18 Health 2016-03-09 2016-03-09 Outpatient [facility] [id number] [place] 10:29:48 10:29:48 Health Results Test Description Test Time Test Comments Results Result Comments Source OPHTHALMOLOGY RETINAL SCAN 2022-05-18 13:55:20 Test Item Value Reference Range Interpretation Comme nts RETINAL SCAN-FINAL RESULT (test code = ALERT A 77758) Right Diabetic Retinopathy (test code = Mild A 509131) Right Macular Edema (test code = 33767) None Right Other Suspected Conditions (test None code = 84296) Right Image Quality (test code = 88551) Gradable Image Left Diabetic Retinopathy (test code = Mild A 01493) Left Macular Edema (test code = 56311) None Left Other Suspected Conditions (test None code = 76647) Left Image Quality (test code = 90113) Gradable Image DANIELA (test code = DANIELA) Retinal Study Result for la LARA 51 y/o, F (: 1970, )presented to [facility] on 05-18-2022 for a retinal imaging study [...] signed by Pollo Mendosa MD, , Taxonomy: [id number] on 05-18-2022 18:55 UTC. NOTE: Any pathology noted on this diabetic retinal evaluation should be confirmed by an appropriate ophthalmic examination. Lab Interpretation (test code = 67330-8) [facility] [id number] 13:55:20 Test Item Value Reference Range Interpretation Comments RETINAL SCAN-FINAL ALERT A RESULT (test code = 13309) Right Diabetic Mild A Retinopathy (test code = 926538) Right Macular Edema None (test code = 99817) Right Other Suspected None Conditions (test code = 54319) Right Image Quality Gradable Image (test code = 09013) Left Diabetic Mild A Retinopathy (test code = 23482) Left Macular Edema None (test code = 36215) Left Other Suspected None Conditions (test code = 47382) Left Image Quality Gradable Image (test code = 06023) DANIELA (test code = DANIELA) Retinal Study Result for la LARA 51 y/o, F (: 1970, )presented to [facility] on 05-18-2022 for a retinal imaging study [...] signed by Pollo Mendosa MD, , Taxonomy: [id number] on 05-18-2022 18:55 UTC. NOTE: Any pathology noted on this diabetic retinal evaluation should be confirmed by an appropriate ophthalmic examination. Lab Interpretation Abnormal (test code = 01117-6) [facility] [id number] 13:55:20 Test Item Value Reference Range Interpretation Comments RETINAL SCAN-FINAL ALERT A RESULT (test code = 32034) Right Diabetic Mild A Retinopathy (test code = 739864) Right Macular Edema None (test code = 46924) Right Other Suspected None Conditions (test code = 39363) Right Image Quality Gradable Image (test code = 39893) Left Diabetic Mild A Retinopathy (test code = 89404) Left Macular Edema None (test code = 50510) Left Other Suspected None Conditions (test code = 22817) Left Image Quality Gradable Image (test code = 59067) DANIELA (test code = DANIELA) Retinal Study Result for la LARA 51 y/o, F (: 1970, )presented to [facility] on 05-18-2022 for a retinal imaging study [...] signed by Pollo Mendosa MD, , Taxonomy: [id number] on 05-18-2022 18:55 [facility]. NOTE: Any pathology noted on this diabetic retinal evaluation should be confirmed by an appropriate ophthalmic examination. Lab Interpretation Abnormal (test code = 82889-2) [facility] [id number] 12:27:55 Test Item Value Reference Range Interpretation Comments LVOT SV (test code 88.9 cm3 = 9841701830) LVOT SI (test code 46.83 ml/m2 = 86086595) LV EDV 2D (test 104.45 mL code = 8755786) LV ESV 2D (test 33.89 mL code = 7222138) LV ESV index 2D 18.22 ml/m2 (test code = 0591034727) LV EDV index 2D 56.14 ml/m2 (test code = 3590990192) IVSd (test code = 1.12 cm 0.6-0.9 7521451655) LVPWd (test code = 1.09 cm 0523768738) LVIDd (test code = 4.7 cm 3.8-5.2 6178988674) LVIDd index (test 25.5 ml/m2 2.3-3.1 code = 24829422) LVIDs (test code = 3.0 cm 2.2-3.5 4804996979) LVIDs index (test 15.9 ml/m2 1.3-2.3 code = 54636029) FS % (test code = 36.2 % See_Comment [Automate d 5362810600) message] The system which generated this result transmitted reference range : >18%. The reference range was not used to interpret this result as normal/abnormal . RWT (test code = 0.5 See_Comment [Automated 1629418761) message] The system which generated this result transmitted reference range : <=0.42. The reference range was not used to interpret this result as normal/abnormal . LVOT diam (test 2.2 cm code = 5595404679) LVOT area (test 3.80 cm2 code = 7369894570) LV mass (linear 192.2 g 67-162 method) (test code = 2393518910) LVMI (2D) (test 103.3 g/m2 44-88 code = 6724570569) MV E zev (test 83.06 cm/s code = 1966926511) MV A zev (test 84.36 cm/s code = 3076540291) MV E/A ratio (test 1.0 code = 0162073555) E/e' average (test 9.0 <14 code = 2194111436) LVOT peak zev 1.25 m/s (test code = 5019784475) LVOT mean grad 2.5 mmHg (test code = 7781644134) LVOT pk grad rest 6 mmHg (test code = 3880928317) LA AP dimension 3.2 cm <3.8 (ES) (test code = 4195124933) LA/Ao ratio (test 0.196357673507290 code = 1420996373) LVOT peak grad 6.2 mmHg (test code = 8879124424) LVOT VTI (test 23.4 cm code = 1116045971) LVOT SV index 46.8 mL/m2 (test code = 5685331408) LV RWT 2D (test 46.950051759417915 code = 2222995518) LV mass size 1 192.2 cm (test code = 9330672943) LVPWd (test code = 10.9 cm 0.6-0.9 6317783357) IVSd 2D (test code 11.024912153517264 = 1892062) cm Sinuses of 3.1 cm 3.6-3.6 Valsalva (test code = 4953584026) Sinus of Valsalva 31.14 cm (test code = 7110774894) RVOT VTI (test 20.5 cm code = 9786609073) TAPSE (test code = 2.9 cm See_Comment [Automat ed 0867549647) message] The system which generated this result transmitted reference range : >=1.7. The reference range was not used to interpret this result as normal/abnormal . IRIS (2D biplane) 15.529 mL/m2 9-33 (test code = 1020001077) PV mean grad (test 2.1 mmHg code = 3591450800) PV peak zev (test 95.92 cm/s code = 3920887317) PV peak grad (test 3.7 mmHg code = 7571344159) PV VTI (test code 21.153190944394972 = 6224236) cm RVOT mn grad (test 1.600090508929964 mmHg code = 0559862040) RVOT pk grad (test 3.2 mmHg code = 0827916088) PV mean zev (test 0.07 cm/s code = 8216207714) RVOT pk zev (test 0.90 mm/s code = 7163389802) [id number] (test 15.5 QI1SQKWYDS code = 9002028603) AV EROA cont eq 2.96 cm2 (test code = 6875790120) AV peak zev (test 1.47 m/s code = 8159694534) AV peak grad (test 8.6 mmHg code = 3423647798) AV mean grad (test 4.1 mmHg code = 9958188037) AV mean zev (test 0.9 m/sec code = 9245068656) AV VTI (test code 29.4 cm = 6897780251) RAUL VTI index 1.59 cm2/m2 (test code = 3970675825) RAUL VTI (test code 2.96 cm2 = 9093164309) RAUL peak zev (test 3.16 cm2 code = 1670885541) AV Doppler zev 0.85 index pk zev (test code = 3494282315) AV Doppler zev 0.80 index VTI (test code = 6967572965) AV zev ratio (test 0.85 AVRATIO code = 8197523964) A2CEF (test code = 66.7 % 6455733573) LV ESV index A2C 15.76 ml/m2 (test code = 3051861672) LV ESV A2C (test 29.32 mL code = 7235880940) LV EDV index A2C 47.33 ml/m2 (test code = 1293272194) Radiology Study observation (narrative) (test code = 17391-6) DANIELA (test code = DANIELA) Left Ventricle: [...] 1.00The left ventricular wall motion is normal. [facility] [id number] 12:27:55 Test Item Value Reference Range Interpretation Comments LVOT SV (test code 88.9 cm3 = 1963776374) LVOT SI (test code 46.83 ml/m2 = 64199708) LV EDV 2D (test 104.45 mL code = 2810019) LV ESV 2D (test 33.89 mL code = 7431757) LV ESV index 2D 18.22 ml/m2 (test code = 8986494036) LV EDV index 2D 56.14 ml/m2 (test code = 5705381187) IVSd (test code = 1.12 cm 0.6-0.9 4775657575) LVPWd (test code = 1.09 cm 5865733211) LVIDd (test code = 4.7 cm 3.8-5.2 8164571147) LVIDd index (test 25.5 ml/m2 2.3-3.1 code = 31949050) LVIDs (test code = 3.0 cm 2.2-3.5 3486687199) LVIDs index (test 15.9 ml/m2 1.3-2.3 code = 24727186) FS % (test code = 36.2 % See_Comment [Automate d 3894830670) message] The system which generated this result transmitted reference range : >18%. The reference range was not used to interpret this result as normal/abnormal . RWT (test code = 0.5 See_Comment [Automated 5097519925) message] The system which generated this result transmitted reference range : <=0.42. The reference range was not used to interpret this result as normal/abnormal . LVOT diam (test 2.2 cm code = 5762193895) LVOT area (test 3.80 cm2 code = 9808135930) LV mass (linear 192.2 g 67-162 method) (test code = 6226391609) LVMI (2D) (test 103.3 g/m2 44-88 code = 2522773940) MV E zev (test 83.06 cm/s code = 6264071704) MV A zev (test 84.36 cm/s code = 3193784076) MV E/A ratio (test 1.0 code = 4244622938) E/e' average (test 9.0 <14 code = 8691076825) LVOT peak zev 1.25 m/s (test code = 7402456019) LVOT mean grad 2.5 mmHg (test code = 8398643238) LVOT pk grad rest 6 mmHg (test code = 7235433677) LA AP dimension 3.2 cm <3.8 (ES) (test code = 7849332256) LA/Ao ratio (test 0.015546377003498 code = 0735388739) LVOT peak grad 6.2 mmHg (test code = 8742069926) LVOT VTI (test 23.4 cm code = 3565621953) LVOT SV index 46.8 mL/m2 (test code = 7999126854) LV RWT 2D (test 46.158245973689930 code = 9012714096) LV mass size 1 192.2 cm (test code = 6365868361) LVPWd (test code = 10.9 cm 0.6-0.9 5867763692) IVSd 2D (test code 11.668877529791817 = 8731789) cm Sinuses of 3.1 cm 3.6-3.6 Valsalva (test code = 1666863881) Sinus of Valsalva 31.14 cm (test code = 8944819976) RVOT VTI (test 20.5 cm code = 1631963404) TAPSE (test code = 2.9 cm See_Comment [Automat ed 2265395130) message] The system which generated this result transmitted reference range : >=1.7. The reference range was not used to interpret this result as normal/abnormal . IRIS (2D biplane) 15.529 mL/m2 9-33 (test code = 5682999068) PV mean grad (test 2.1 mmHg code = 3735271963) PV peak zev (test 95.92 cm/s code = 9995715607) PV peak grad (test 3.7 mmHg code = 2643019226) PV VTI (test code 21.415893738826046 = 8445005) cm RVOT mn grad (test 1.085968359591637 mmHg code = 7017478467) RVOT pk grad (test 3.2 mmHg code = 0025821118) PV mean zev (test 0.07 cm/s code = 6664380539) RVOT pk zev (test 0.90 mm/s code = 9630550334) EA1CMYHDYE (test 15.5 JO6YJZDWPY code = 3687511290) AV EROA cont eq 2.96 cm2 (test code = 9230341883) AV peak zev (test 1.47 m/s code = 2770554267) AV peak grad (test 8.6 mmHg code = 7405963659) AV mean grad (test 4.1 mmHg code = 9739469285) AV mean zev (test 0.9 m/sec code = 2489764072) AV VTI (test code 29.4 cm = 4678366549) RAUL VTI index 1.59 cm2/m2 (test code = 6365694262) RAUL VTI (test code 2.96 cm2 = 7684319524) RAUL peak zev (test 3.16 cm2 code = 4794936354) AV Doppler zev 0.85 index pk zev (test code = 1959833769) AV Doppler zev 0.80 index VTI (test code = 6810233020) AV zev ratio (test 0.85 AVRATIO code = 7403965175) A2CEF (test code = 66.7 % 2516111525) LV ESV index A2C 15.76 ml/m2 (test code = 6355361345) LV ESV A2C (test 29.32 mL code = 7479112333) LV EDV index A2C 47.33 ml/m2 (test code = 9054124311) Radiology Study observation (narrative) (test code = 60791-0) DANIELA (test code = DANIELA) Left Ventricle: [...] 1.00The left ventricular wall motion is normal. [place] [id number] 15:41:1012 LEAD EKG FOR [facility] Test Date: [id number] Name: ROSIO ZAPATAVER Department: 5520Patient ID: [id number] Room: Gender: F Ore Puncher: [id number]: 1970 Requested By: NATALI SIDDIQUI Order Number: [id number] Reading MD: Lenny Farooq MeasurementsIntervals [place] Rate: 70 P: 61PR: 139 QRS: -28QRSD: 101 T: 45QT: 396 QTc: 416 Interpretive StatementsSINUS RHYTHMBORDERLINE LEFT AXIS DEVIATION [QRS AXIS < -20]VOLTAGE CRITERIA FOR LVH [MEETS CRITERIA IN ONE OF: R(aVL), S(V1), R(V5),R(V5/V6)+S(V1)]Electronically Signed On 02-04-2022 14:37:10 CDT by [place]enny S[place]uentesW[place] [id number] 15:41:1012 LEAD EKG FOR [facility] Test Date: [id number] Name: [facility] Department: 5520Patient ID: [id number] Room: Gender: F Ore Puncher: [id number]: 1970 Requested By: JOE Order Number: [id number] Reading MD: Lenny Farooq MeasurementsIntervals [place] Rate: 70 P: 61PR: 139 QRS: -28QRSD: 101 T: 45QT: 396 QTc: 416 Interpretive StatementsSINUS RHYTHMBORDERLINE LEFT AXIS DEVIATION [QRS AXIS < -20]VOLTAGE CRITERIA FOR LVH [MEETS CRITERIA IN ONE OF: R(aVL), S(V1), R(V5),R(V5/V6)+S(V1)]Electronically Signed On 02-04-2022 14:37:10 CDT by [place] [id number] 15:41:1012 LEAD EKG FOR [facility] Test Date: [id number] Name: [facility] Department: 5520Patient ID: [id number] Room: Gender: F Ore Puncher: [id number]: 1970 Requested By: NATALI SIDDIQUI Order Number: [id number] Reading MD: Lenny Farooq MeasurementsIntervals [place] Rate: 70 P: 61PR: 139 QRS: -28QRSD: 101 T: 45QT: 396 QTc: 416 Interpretive StatementsSINUS RHYTHMBORDERLINE LEFT AXIS DEVIATION [QRS AXIS < -20]VOLTAGE CRITERIA FOR LVH [MEETS CRITERIA IN ONE OF: R(aVL), S(V1), R(V5),R(V5/V6)+S(V1)]Electronically Signed On 02-04-2022 14:37:10 CDT by [facility] [place] [id number] 15:41:1012 LEAD EKG FOR [facility] Test Date: [id number] Name: [facility] Department: 5520Patient ID: [id number] Room: Gender: F Ore Puncher: [id number]: 1970 Requested By: NATALI SIDDIQUI Order Number: [id number] Reading MD: Lenny Farooq MeasurementsIntervals [place] Rate: 70 P: 61PR: 139 QRS: -28QRSD: 101 T: 45QT: 396 QTc: 416 Interpretive StatementsSINUS RHYTHMBORDERLINE LEFT AXIS DEVIATION [QRS AXIS < -20]VOLTAGE CRITERIA FOR LVH [MEETS CRITERIA IN ONE OF: R(aVL), S(V1), R(V5),R(V5/V6)+S(V1)]Electronically Signed On 02-04-2022 14:37:10 CDT by [facility]CT [facility] P[facility] docked [id number] 09:32:13 Test Item Value Reference Range Interpretation Comments Glucose POC (test code = 468 mg/dL 74-106 HH >40 0 mg/dL [id number]) Physician Notif ied Lab Interpretation (test Abnormal code = 51012-8) [facility] GLUCOSE POC docked [id number] 09:32:13 Test Item Value Reference Range Interpretation Comments Glucose POC (test code = 468 mg/dL 74-106 HH >40 0 mg/dL [id number]) Physician Notif ied Lab Interpretation (test Abnormal code = 80312-6) [facility] GLUCOSE POC docked [id number] 09:32:13 Test Item Value Reference Range Interpretation Comments Glucose POC (test code = 468 mg/dL 74-106 HH >40 0 mg/dL [id number]) Physician Notif ied Lab Interpretation (test Abnormal code = 36944-0) [facility] GLUCOSE POC docked [id number] 09:32:13 Test Item Value Reference Range Interpretation Comments Glucose POC (test code = 468 mg/dL 74-106 HH >40 0 mg/dL [id number]) Physician Notif ied Lab Interpretation (test Abnormal code = 94804-3) [facility] URINE DIPSTICK, WITHOUT [id number] 00:00:00 Test Item Value Reference Range Interpretation Comments Color POC (test code = Yellow See_Comment [Aut omated message] 35712) The system We[employer] generated this result transmit tricia reference range : - - -. The referenc e range was not u sed to interpret th is result as normal/abnormal . Clarity POC (test code Clear See_Comment [Aut omated message] = 63443) The system [employer] generated this result transmit tricia reference range : - - -. The referenc e range was not u sed to interpret th is result as normal/abnormal . Glucose POC (test code 3+ Negative - Negative = 52029) Bilirubin POC (test Negative Negative - Negative code = 52135) Ketone POC (test code Negative Negative - Negative = 12732) Spec Haines POC (test 1.015 1.005-1.030 code = 8156) Blood POC (test code = Trace Negative - Negative 69500) pH POC (test code = 6.0 5.0-7.0 56525) Protein POC (test code Negative Negative - Negative = 06702) Urobilinogen POC (test <1.0 0.2-1.0 code = 16444) Nitrate POC (test code Negative Negative - Negative = 44625) Leukocyte POC (test Negative Negative - Negative code = 78886) [facility] RAPID [id number] 00:00:00 Test Item Value Reference Range Interpretation Comments Rapid HIV Result (test code = 24720) Negative Rapid HIV Control (test code = Pass 69567) [facility] URINE DIPSTICK, WITHOUT [id number] 00:00:00 Test Item Value Reference Range Interpretation Comments Color POC (test code = Yellow See_Comment [Aut omated message] 67146) The system [employer] generated this result transmit tricia reference range : - - -. The referenc e range was not u sed to interpret th is result as normal/abnormal . Clarity POC (test code Clear See_Comment [Aut omated message] = 40191) The system [employer] generated this result transmit tricia reference range : - - -. The referenc e range was not u sed to interpret th is result as normal/abnormal . Glucose POC (test code 3+ Negative - Negative = 92605) Bilirubin POC (test Negative Negative - Negative code = 04411) Ketone POC (test code Negative Negative - Negative = 41873) Spec Haines POC (test 1.015 1.005-1.030 code = 8156) Blood POC (test code = Trace Negative - Negative 92747) pH POC (test code = 6.0 5.0-7.0 64973) Protein POC (test code Negative Negative - Negative = 83312) Urobilinogen POC (test <1.0 0.2-1.0 code = 79876) Nitrate POC (test code Negative Negative - Negative = 37726) Leukocyte POC (test Negative Negative - Negative code = 73183) [facility] RAPID [id number] 00:00:00 Test Item Value Reference Range Interpretation Comments Rapid HIV Result (test code = 07961) Negative Rapid HIV Control (test code = Pass 89269) [facility] URINE DIPSTICK, WITHOUT [id number] 00:00:00 Test Item Value Reference Range Interpretation Comments Color POC (test code = Yellow See_Comment [Aut omated message] 90879) The system We[employer] generated this result transmit tricia reference range : - - -. The referenc e range was not u sed to interpret th is result as normal/abnormal . Clarity POC (test code Clear See_Comment [Aut omated message] = 01107) The system [employer] generated this result transmit tricia reference range : - - -. The referenc e range was not u sed to interpret th is result as normal/abnormal . Glucose POC (test code 3+ Negative - Negative = 56722) Bilirubin POC (test Negative Negative - Negative code = 58569) Ketone POC (test code Negative Negative - Negative = 76606) Spec Haines POC (test 1.015 1.005-1.030 code = 8156) Blood POC (test code = Trace Negative - Negative 68370) pH POC (test code = 6.0 5.0-7.0 63271) Protein POC (test code Negative Negative - Negative = 58679) Urobilinogen POC (test <1.0 0.2-1.0 code = 26767) Nitrate POC (test code Negative Negative - Negative = 76607) Leukocyte POC (test Negative Negative - Negative code = 74547) [facility] RAPID [id number] 00:00:00 Test Item Value Reference Range Interpretation Comments Rapid HIV Result (test code = 52478) Negative Rapid HIV Control (test code = Pass 27435) [facility] URINE DIPSTICK, WITHOUT [id number] 00:00:00 Test Item Value Reference Range Interpretation Comments Color POC (test code = Yellow See_Comment [Aut omated message] 28443) The system [employer] generated this result transmit tricia reference range : - - -. The referenc e range was not u sed to interpret th is result as normal/abnormal . Clarity POC (test code Clear See_Comment [Aut omated message] = 00717) The system [employer] generated this result transmit tricia reference range : - - -. The referenc e range was not u sed to interpret th is result as normal/abnormal . Glucose POC (test code 3+ Negative - Negative = 83866) Bilirubin POC (test Negative Negative - Negative code = 08741) Ketone POC (test code Negative Negative - Negative = 03902) Spec Haines POC (test 1.015 1.005-1.030 code = 8156) Blood POC (test code = Trace Negative - Negative 56291) pH POC (test code = 6.0 5.0-7.0 46030) Protein POC (test code Negative Negative - Negative = 77251) Urobilinogen POC (test <1.0 0.2-1.0 code = 91663) Nitrate POC (test code Negative Negative - Negative = 66368) Leukocyte POC (test Negative Negative - Negative code = 42170) [facility] RAPID [id number] 00:00:00 Test Item Value Reference Range Interpretation Comments Rapid HIV Result (test code = 99998) Negative Rapid HIV Control (test code = Pass 94391) [facility], as % of total [id number] 14:57:00 Test Item Value Reference Range Interpretation Comments hemoglobin A1C, blood, as % of total 10.9 % 4.8-5.6 H hemoglobin (test code = 4548-4) [facility] CenterLDL cholesterol, [id number] 14:57:00 Test Item Value Reference Range Interpretation Comments LDL cholesterol, serum (test TRIGHI mg/dL 0-99 code = 2088-1) [facility] Centervery low density yocpdaqhcivj0829-79-96 14:57:00 Test Item Value Reference Range Interpretation Comments very low density lipoproteins VLDLCH mg/dL 5-40 (test code = 2090-7) [facility] CenterHDL cholesterol, [id number] 14:57:00 Test Item Value Reference Range Interpretation Comments HDL cholesterol, serum (test code = 55 mg/dL >39 2084-9) [facility] Centertriglyceride, serum, [id number] 14:57:00 Test Item Value Reference Range Interpretation Comments triglyceride, serum, fasting (test 527 mg/dL 0-149 H code = 2571-8) [facility] Centercholesterol, [id number] 14:57:00 Test Item Value Reference Range Interpretation Comments cholesterol, serum (test code = 261 mg/dL 100-199 H 2092-3) [facility] Centeralanine aminotransferase (SGPT), [id number] 14:57:00 Test Item Value Reference Range Interpretation Comments alanine aminotransferase (SGPT), serum 25 1/L 0-32 (test code = 1742-6) [facility] Centeraspartate aminotransferase (SGOT), [id number] 14:57:00 Test Item Value Reference Range Interpretation Comments aspartate aminotransferase (SGOT), 19 1/L 0-40 serum (test code = 1920-8) [facility] Centeralkaline phosphatase, [id number] 14:57:00 Test Item Value Reference Range Interpretation Comments alkaline phosphatase, serum (test code 99 1/L 39-117 = 1783-0) [facility] Centerbilirubin, serum, [id number] 14:57:00 Test Item Value Reference Range Interpretation Comments bilirubin, serum, total (test code 0.3 mg/dL 0.0-1.2 = 1975-2) [facility] Healthalbumin/globulin ratio, [id number] 14:57:00 Test Item Value Reference Range Interpretation Comments albumin/globulin ratio, serum (test 1.7 1.2-2.2 code = 1759-0) [facility] Healthglobulin, [id number] 14:57:00 Test Item Value Reference Range Interpretation Comments globulin, serum (test code = 2336-6) 2.7 1.5-4.5 [facility] Healthalbumin, [id number] 14:57:00 Test Item Value Reference Range Interpretation Comments albumin, serum (test code = 1751-7) 4.5 g/dL 3.5-5.5 [facility] Centerprotein, total, [id number] 14:57:00 Test Item Value Reference Range Interpretation Comments protein, total, serum (test code = 7.2 g/dL 6.0-8.5 2885-2) [facility] Centercalcium, [id number] 14:57:00 Test Item Value Reference Range Interpretation Comments calcium, serum (test code = 10.8 mg/dL 8.7-10.2 H 1999-) [facility] Centercarbon dioxide, venous [id number] 14:57:00 Test Item Value Reference Range Interpretation Comments carbon dioxide, venous blood (test 24 mmol/L 20-29 code = 7-1) [facility] Centerchloride, [id number] 14:57:00 Test Item Value Reference Range Interpretation Comments chloride, serum (test code = 91 mmol/L 96-106 L 2074-0) [facility] Healthpotassium, [id number] 14:57:00 Test Item Value Reference Range Interpretation Comments potassium, serum (test code = 4.9 mmol/L 3.5-5.2 2823-3) [facility] Centersodium, [id number] 14:57:00 Test Item Value Reference Range Interpretation Comments sodium, serum (test code = 2951-2) 131 mmol/L 134-144 L [facility] Centerurea nitrogen/creatinine ratio, [id number] 14:57:00 Test Item Value Reference Range Interpretation Comments urea nitrogen/creatinine ratio, serum 13 9-23 (test code = 3097-3) [facility] HealtheGFR if Ltuiaqpo3045-90-46 14:57:00 Test Item Value Reference Range Interpretation Comments eGFR if 90 >59 (test code = 95469-2) mL/min/((173/100).m2) [facility] CenterEstimated Glomerular Filtration Rate (calc)2018-07-04 14:57:00 Test Item Value Reference Range Interpretation Comments Estimated Glomerular 78 >59 Filtration Rate (calc) mL/min/((173/100).m2 (test code = 61777-0) ) [facility] Centercreatinine, [id number] 14:57:00 Test Item Value Reference Range Interpretation Comments creatinine, serum (test code = 0.88 mg/dL 0.57-1.00 2160-0) [facility] Centerurea nitrogen, [id number] 14:57:00 Test Item Value Reference Range Interpretation Comments urea nitrogen, blood (test code = 11 mg/dL 6-24 3094-0) [facility] Centerblood glucose, [id number] 14:57:00 Test Item Value Reference Range Interpretation Comments blood glucose, random (test code = 520 mg/dL 65-99 2339-0) [facility] Centerimmature granulocytes, percentage of total cells, blood 2018-07-04 14:57:00 Test Item Value Reference Range Interpretation Comments immature granulocytes, percentage of 0 % total cells, blood (test code = 23271-4) [facility] Centerbasophil count, [id number] 14:57:00 Test Item Value Reference Range Interpretation Comments basophil count, absolute (test 0.1 x10E3/uL 0.0-0.2 code = 92595-9) [facility] HealthEosinophil Absolute [id number] 14:57:00 Test Item Value Reference Range Interpretation Comments Eosinophil Absolute Count (test 0.3 X10E3/UL 0.0-0.4 code = 41661-5) [facility] Healthmonocyte count, blood, [id number] 14:57:00 Test Item Value Reference Range Interpretation Comments monocyte count, blood, automated 0.6 X10E3/UL 0.1-0.9 (test code = 742-7) [facility] Healthlymphocyte count, blood, [id number] 14:57:00 Test Item Value Reference Range Interpretation Comments lymphocyte count, blood, 3.4 X10E3/UL 0.7-3.1 H automated (test code = 731-0) [facility] HealthAbsolute Pylmnhqexal8148-57-04 14:57:00 Test Item Value Reference Range Interpretation Comments Absolute Neutrophils (test code 7.5 X10E3/UL 1.4-7.0 H = 92846-2) [facility] Healthbasophils as percent of blood [id number] 14:57:00 Test Item Value Reference Range Interpretation Comments basophils as percent of blood 1 % leukocytes (test code = 707-0) [facility] Healtheosinophils as percent of blood rxfvlwclfv6269-54-05 14:57:00 Test Item Value Reference Range Interpretation Comments eosinophils as percent of blood 3 % leukocytes (test code = 713-8) [facility] Healthmonocytes as percent of blood sfwzsjvbag0524-42-61 14:57:00 Test Item Value Reference Range Interpretation Comments monocytes as percent of blood 5 % leukocytes (test code = 5905-5) [facility] Healthlymphocytes as percent of blood fqnwhlppdl3180-30-02 14:57:00 Test Item Value Reference Range Interpretation Comments lymphocytes as percent of blood 28 % leukocytes (test code = 736-9) [facility] Healthneutrophils as percent of blood wucwxpjdnx0029-09-67 14:57:00 Test Item Value Reference Range Interpretation Comments neutrophils as percent of blood 63 % leukocytes (test code = 770-8) [facility] Healthplatelet [id number] 14:57:00 Test Item Value Reference Range Interpretation Comments platelet count (test code = 410 X10E3/UL 150-379 H 777-3) [facility] Centerred blood cell distribution [id number] 14:57:00 Test Item Value Reference Range Interpretation Comments red blood cell distribution width 14.7 % 12.3-15.4 (test code = 788-0) [facility] corpuscular hemoglobin concentration, [id number] 14:57:00 Test Item Value Reference Range Interpretation Comments mean corpuscular hemoglobin 33.0 G/DL 31.5-35.7 concentration, RBC (test code = 786-4) [facility] corpuscular hemoglobin, [id number] 14:57:00 Test Item Value Reference Range Interpretation Comments mean corpuscular hemoglobin, RBC 29.1 pg 26.6-33.0 (test code = 785-6) [facility] corpuscular volume, [id number] 14:57:00 Test Item Value Reference Range Interpretation Comments mean corpuscular volume, RBC (test code 88 fL 79-97 = 787-2) [facility] Centerhematocrit, [id number] 14:57:00 Test Item Value Reference Range Interpretation Comments hematocrit, blood (test code = 4544-3) 41.2 % 34.0-46.6 [facility] Centerhemoglobin, [id number] 14:57:00 Test Item Value Reference Range Interpretation Comments hemoglobin, blood (test code = 13.6 g/dL 11.1-15.9 718-7) [facility] Centererythrocyte (RBC) [id number] 14:57:00 Test Item Value Reference Range Interpretation Comments erythrocyte (RBC) count (test 4.67 X10E6/UL 3.77-5.28 code = 789-8) [facility] Centerleukocyte count, [id number] 14:57:00 Test Item Value Reference Range Interpretation Comments leukocyte count, blood (test 11.9 X10E3/UL 3.4-10.8 H code = 6690-2) [facility] CenterNeisseria gonorrhoeae DNA [id number] 16:44:00 Test Item Value Reference Range Interpretation Comments Neisseria gonorrhoeae DNA probe NOT DETECTED NOT DETECTED N (test code = 66582-5) [facility] Centerchlamydia DNA [id number] 16:44:00 Test Item Value Reference Range Interpretation Comments chlamydia DNA probe (test code = NOT DETECTED NOT DETECTED N 50395-3) [facility] Centerrapid plasma reagin antibody, [id number] 13:17:00 Test Item Value Reference Range Interpretation Comments rapid plasma reagin antibody, NON-REACTIVE NON-REACTIVE N serum (test code = 5291-0) [facility] Centerhemoglobin A1C, blood, as % of total nwolwyyhgv3069-09-42 13:17:00 Test Item Value Reference Range Interpretation Comments hemoglobin A1C, blood, as 8.7 % OF TOTAL HGB <5.7 H % of total hemoglobin (test code = 4548-4) [facility] CenterTSH (thyroid stimulating hormone) with reflex FT4 2017-07-30 13:17:00 Test Item Value Reference Range Interpretation Comments TSH (thyroid stimulating hormone) 1.30 mIU/L N with reflex FT4 (test code = 52277) [facility] CenterHepatitis C Antibody, Signal to Cay-Dim9961-04-02 13:17:00 Test Item Value Reference Range Interpretation Comments Hepatitis C Antibody, Signal to Cut-Off 0.01 <1.00 N (test code = 445183) [facility] Centerhepatitis C antibody, [id number] 13:17:00 Test Item Value Reference Range Interpretation Comments hepatitis C antibody, serum NON-REACTIVE NON-REACTIVE N (test code = 5199-5) [facility] Healthbasophils as percent of blood zbjnakaufs3382-04-45 13:17:00 Test Item Value Reference Range Interpretation Comments basophils as percent of blood 0.9 % N leukocytes (test code = 707-0) [facility] Healtheosinophils as percent of blood kzkkmqtlto7854-78-78 13:17:00 Test Item Value Reference Range Interpretation Comments eosinophils as percent of blood 3.1 % N leukocytes (test code = 714-6) [facility] Centermonocytes as percent of blood judxpfdiul6501-04-76 13:17:00 Test Item Value Reference Range Interpretation Comments monocytes as percent of blood 5.5 % N leukocytes (test code = 5905-5) [facility] Healthlymphocytes as percent of blood ivamnssuqc9970-30-82 13:17:00 Test Item Value Reference Range Interpretation Comments lymphocytes as percent of blood 23.6 % N leukocytes (test code = 736-9) [facility] Centerneutrophils as percent of blood iubllzuang3204-21-10 13:17:00 Test Item Value Reference Range Interpretation Comments neutrophils as percent of blood 66.9 % N leukocytes (test code = 770-8) [facility] Centerbasophil count, xgxwyinb2940-31-41 13:17:00 Test Item Value Reference Range Interpretation Comments basophil count, absolute (test 115 cells/uL 0-200 N code = 34253-7) [facility] CenterAbsolute Eosinophil [id number] 13:17:00 Test Item Value Reference Range Interpretation Comments Absolute Eosinophil count (test 397 cells/mcL 15-500 N code = 44416-5) [facility] CenterAbsolute Monocyte [id number] 13:17:00 Test Item Value Reference Range Interpretation Comments Absolute Monocyte count (test 704 cells/mcL 200-950 N code = 15131-1) [facility] Centerlymphocytes, adhirhvd1598-94-01 13:17:00 Test Item Value Reference Range Interpretation Comments lymphocytes, absolute (test 3021 CELLS/UL 850-3900 N code = 44952-9) [facility] CenterAbsolute Neutrophil [id number] 13:17:00 Test Item Value Reference Range Interpretation Comments Absolute Neutrophil count 8563 cells/mcL 0930-1985 H (test code = 26458-8) [facility] Centermean platelet [id number] 13:17:00 Test Item Value Reference Range Interpretation Comments mean platelet volume (test code = 10.3 fL 7.5-12.5 N 776-5) [facility] Centerplatelet [id number] 13:17:00 Test Item Value Reference Range Interpretation Comments platelet count (test code = 445 THOUSAND/UL 140-400 H 777-3) [facility] Centerred blood cell distribution [id number] 13:17:00 Test Item Value Reference Range Interpretation Comments red blood cell distribution width 15.5 % 11.0-15.0 H (test code = 788-0) [facility] corpuscular hemoglobin concentration, [id number] 13:17:00 Test Item Value Reference Range Interpretation Comments mean corpuscular hemoglobin 32.1 G/DL 32.0-36.0 N concentration, RBC (test code = 786-4) [facility], [id number] 13:17:00 Test Item Value Reference Range Interpretation Comments mean corpuscular hemoglobin, RBC 25.3 pg 27.0-33.0 L (test code = 785-6) [facility], [id number] 13:17:00 Test Item Value Reference Range Interpretation Comments mean corpuscular volume, RBC (test 78.7 fL 80.0-100.0 L code = 787-2) [facility] Centerhematocrit, [id number] 13:17:00 Test Item Value Reference Range Interpretation Comments hematocrit, blood (test code = 4544-3) 35.8 % 35.0-45.0 N [facility] Centerhemoglobin, [id number] 13:17:00 Test Item Value Reference Range Interpretation Comments hemoglobin, blood (test code = 11.5 g/dL 11.7-15.5 L 718-7) [facility] Centererythrocyte (RBC) [id number] 13:17:00 Test Item Value Reference Range Interpretation Comments erythrocyte (RBC) count (test 4.55 MILLION/UL 3.80-5.10 N code = 789-8) [facility] Centerleukocyte count, [id number] 13:17:00 Test Item Value Reference Range Interpretation Comments leukocyte count, blood (test 12.8 THOUSAND/UL 3.8-10.8 H code = 6690-2) [facility] Centeralanine aminotransferase (SGPT), [id number] 13:17:00 Test Item Value Reference Range Interpretation Comments alanine aminotransferase (SGPT), serum 16 1/L 6-29 N (test code = 1742-6) [facility] Centeraspartate aminotransferase (SGOT), [id number] 13:17:00 Test Item Value Reference Range Interpretation Comments aspartate aminotransferase (SGOT), 14 1/L 10-35 N serum (test code = 1920-8) [facility] Centeralkaline phosphatase, [id number] 13:17:00 Test Item Value Reference Range Interpretation Comments alkaline phosphatase, serum (test code 72 1/L 33-115 N = 1783-0) [facility] Centerbilirubin, serum, [id number] 13:17:00 Test Item Value Reference Range Interpretation Comments bilirubin, serum, total (test code 0.2 mg/dL 0.2-1.2 N = 1975-2) [facility] Healthalbumin/globulin ratio, [id number] 13:17:00 Test Item Value Reference Range Interpretation Comments albumin/globulin ratio, serum 1.4 (calc) 1.0-2.5 N (test code = 1759-0) [facility] Healthglobulins, serum, [id number] 13:17:00 Test Item Value Reference Range Interpretation Comments globulins, serum, total (test 2.9 G/DL (CALC) 1.9-3.7 N code = 2336-6) [facility] Healthalbumin, [id number] 13:17:00 Test Item Value Reference Range Interpretation Comments albumin, serum (test code = 1751-7) 4.0 g/dL 3.6-5.1 N [facility] Centerprotein, total, [id number] 13:17:00 Test Item Value Reference Range Interpretation Comments protein, total, serum (test code = 6.9 g/dL 6.1-8.1 N 2885-2) [facility] Centercalcium, [id number] 13:17:00 Test Item Value Reference Range Interpretation Comments calcium, serum (test code = 1999-8) 9.8 mg/dL 8.6-10.2 N [facility] Centercarbon dioxide, venous [id number] 13:17:00 Test Item Value Reference Range Interpretation Comments carbon dioxide, venous blood (test 22 mmol/L 20-31 N code = 2026-1) [facility] Centerchloride, [id number] 13:17:00 Test Item Value Reference Range Interpretation Comments chloride, serum (test code = 103 mmol/L 98-110 N 5-0) [facility] Centerpotassium, [id number] 13:17:00 Test Item Value Reference Range Interpretation Comments potassium, serum (test code = 4.6 mmol/L 3.5-5.3 N 2823-3) [facility] Centersodium, [id number] 13:17:00 Test Item Value Reference Range Interpretation Comments sodium, serum (test code = 2951-2) 135 mmol/L 135-146 N [facility] Centerurea nitrogen/creatinine ratio, [id number] 13:17:00 Test Item Value Reference Range Interpretation Comments urea NOT APPLICABLE (calc) 6-22 nitrogen/creatinine ratio, serum (test code = 3097-3) [facility] CentereGFR if [id number] 13:17:00 Test Item Value Reference Range Interpretation Comments eGFR if 120 > OR = 60 N (test code = 71474-1) mL/min/((173/100).m2) [facility] CenterEstimated Glomerular Filtration Rate (calc)2017-07-30 13:17:00 Test Item Value Reference Range Interpretation Comments Estimated Glomerular 104 > OR = 60 N Filtration Rate (calc) mL/min/((173/100).m2 (test code = 82883-3) ) [facility] Centercreatinine, [id number] 13:17:00 Test Item Value Reference Range Interpretation Comments creatinine, serum (test code = 0.69 mg/dL 0.50-1.10 N 2160-0) [facility] Centerurea nitrogen, [id number] 13:17:00 Test Item Value Reference Range Interpretation Comments urea nitrogen, blood (test code = 10 mg/dL 7-25 N 3094-0) [facility] Centerblood glucose, [id number] 13:17:00 Test Item Value Reference Range Interpretation Comments blood glucose, random (test code = 180 mg/dL 65-99 H 2339-0) [facility] CenterHIV-CMIA (Chemiluminescent Microparticle Immuno Assay) 2017-07-30 13:17:00 Test Item Value Reference Range Interpretation Comments HIV-CMIA (Chemiluminescent NON-REACTIVE NON-REACTIVE N Microparticle Immuno Assay) (test code = 206345) [facility] Centercholesterol, non-HDL, [id number] 13:17:00 Test Item Value Reference Range Interpretation Comments cholesterol, non-HDL, total 176 MG/DL (CALC) <130 H (test code = 04866) [facility] Centercholesterol/HDL ratio, serum, [id number] 13:17:00 Test Item Value Reference Range Interpretation Comments cholesterol/HDL ratio, serum, 4.7 (calc) <5.0 N percent (test code = 2404) [facility] CenterLDL cholesterol, [id number] 13:17:00 Test Item Value Reference Range Interpretation Comments LDL cholesterol, serum (test 133 MG/DL (CALC) H code = 2089-1) [facility] Centertriglyceride, serum, [id number] 13:17:00 Test Item Value Reference Range Interpretation Comments triglyceride, serum, fasting (test 301 mg/dL <150 H code = 2571-8) [facility] CenterHDL cholesterol, [id number] 13:17:00 Test Item Value Reference Range Interpretation Comments HDL cholesterol, serum (test code = 47 mg/dL >50 L 5-9) [facility] Centercholesterol, [id number] 13:17:00 Test Item Value Reference Range Interpretation Comments cholesterol, serum (test code = 223 mg/dL <200 H 3-3) [facility] Centerthyroid stimulating hormone, [id number] 09:48:00 Test Item Value Reference Range Interpretation Comments thyroid stimulating hormone, 1.460 u[iU]/mL 0.450-4.500 serum (test code = 3016-3) [facility] Centerhemoglobin A1C, blood, as % of total [id number] 09:48:00 Test Item Value Reference Range Interpretation Comments hemoglobin A1C, blood, as % of total 9.4 % 4.8-5.6 H hemoglobin (test code = 4548-4) [facility] Centermicroalbumin/creatinine ratio, [id number] 09:48:00 Test Item Value Reference Range Interpretation Comments microalbumin/creatinine 54.1 MG/G CREAT 0.0-30.0 H ratio, urine (test code = 47190-9) [facility] Centermicroalbumin/total urine [id number] 09:48:00 Test Item Value Reference Range Interpretation Comments microalbumin/total urine volume 15.9 mg/L (test code = 89955-7) [facility] Centercreatinine, random, [id number] 09:48:00 Test Item Value Reference Range Interpretation Comments creatinine, random, urine (test 29.4 mg/dL code = 2161-8) [facility] CenterLDL cholesterol, [id number] 09:48:00 Test Item Value Reference Range Interpretation Comments LDL cholesterol, serum (test code = 111 mg/dL 0-99 H 2088-08) [facility] Centervery low density [id number] 09:48:00 Test Item Value Reference Range Interpretation Comments very low density lipoproteins (test 63 mg/dL 5-40 H code = 2091-7) [facility] CenterHDL cholesterol, [id number] 09:48:00 Test Item Value Reference Range Interpretation Comments HDL cholesterol, serum (test code = 45 mg/dL >39 2084-) [facility] Centertriglyceride, serum, [id number] 09:48:00 Test Item Value Reference Range Interpretation Comments triglyceride, serum, fasting (test 313 mg/dL 0-149 H code = 2571-8) [facility] Centercholesterol, [id number] 09:48:00 Test Item Value Reference Range Interpretation Comments cholesterol, serum (test code = 219 mg/dL 100-199 H 2092-10) [facility] Centeralanine aminotransferase (SGPT), [id number] 09:48:00 Test Item Value Reference Range Interpretation Comments alanine aminotransferase (SGPT), serum 23 1/L 0-32 (test code = 1742-6) [facility] Centeraspartate aminotransferase (SGOT), [id number] 09:48:00 Test Item Value Reference Range Interpretation Comments aspartate aminotransferase (SGOT), 18 1/L 0-40 serum (test code = 1920-8) [facility] Centeralkaline phosphatase, [id number] 09:48:00 Test Item Value Reference Range Interpretation Comments alkaline phosphatase, serum (test code 86 1/L 39-117 = 1783-0) [facility] Centerbilirubin, serum, [id number] 09:48:00 Test Item Value Reference Range Interpretation Comments bilirubin, serum, total (test code <0.2 mg/dL 0.0-1.2 = 1975-2) [facility] Healthalbumin/globulin ratio, [id number] 09:48:00 Test Item Value Reference Range Interpretation Comments albumin/globulin ratio, serum (test 1.5 1.1-2.5 code = 1759-0) [facility] Healthglobulin, [id number] 09:48:00 Test Item Value Reference Range Interpretation Comments globulin, serum (test code = 2336-6) 2.9 1.5-4.5 [facility] Healthalbumin, [id number] 09:48:00 Test Item Value Reference Range Interpretation Comments albumin, serum (test code = 1751-7) 4.4 g/dL 3.5-5.5 [facility] Healthprotein, total, [id number] 09:48:00 Test Item Value Reference Range Interpretation Comments protein, total, serum (test code = 7.3 g/dL 6.0-8.5 2885-2) [facility] Centercalcium, [id number] 09:48:00 Test Item Value Reference Range Interpretation Comments calcium, serum (test code = 10.0 mg/dL 8.7-10.2 1999-) [facility] Centercarbon dioxide, venous [id number] 09:48:00 Test Item Value Reference Range Interpretation Comments carbon dioxide, venous blood (test 19 mmol/L 18-29 code = 2026-1) [facility] Centerchloride, [id number] 09:48:00 Test Item Value Reference Range Interpretation Comments chloride, serum (test code = 95 mmol/L 97-106 L 2074-0) [facility] Centerpotassium, [id number] 09:48:00 Test Item Value Reference Range Interpretation Comments potassium, serum (test code = 4.8 mmol/L 3.5-5.2 2823-3) [facility] Centersodium, [id number] 09:48:00 Test Item Value Reference Range Interpretation Comments sodium, serum (test code = 2951-2) 132 mmol/L 136-144 L [facility] Centerurea nitrogen/creatinine ratio, [id number] 09:48:00 Test Item Value Reference Range Interpretation Comments urea nitrogen/creatinine ratio, serum 19 9-23 (test code = 3097-3) [facility] HealtheGFR if [id number] 09:48:00 Test Item Value Reference Range Interpretation Comments eGFR if 111 >59 (test code = 92904-9) mL/min/((173/100).m2) [facility] CenterEstimated Glomerular Filtration Rate (calc)2016-06-16 09:48:00 Test Item Value Reference Range Interpretation Comments Estimated Glomerular 96 >59 Filtration Rate (calc) mL/min/((173/100).m2 (test code = 10304-6) ) [facility] Centercreatinine, [id number] 09:48:00 Test Item Value Reference Range Interpretation Comments creatinine, serum (test code = 0.75 mg/dL 0.57-1.00 2160-0) [facility] Centerurea nitrogen, [id number] 09:48:00 Test Item Value Reference Range Interpretation Comments urea nitrogen, blood (test code = 14 mg/dL 6-24 3094-0) [facility] Centerblood glucose, [id number] 09:48:00 Test Item Value Reference Range Interpretation Comments blood glucose, random (test code = 345 mg/dL 65-99 H 2339-0) [facility] Centerimmature granulocytes, percentage of total cells, blood 2016-06-16 09:48:00 Test Item Value Reference Range Interpretation Comments immature granulocytes, percentage of 0 % total cells, blood (test code = 10582-3) [facility] Centerbasophil count, [id number] 09:48:00 Test Item Value Reference Range Interpretation Comments basophil count, absolute (test 0.1 x10E3/uL 0.0-0.2 code = 24973-9) [facility] CenterEosinophil Absolute [id number] 09:48:00 Test Item Value Reference Range Interpretation Comments Eosinophil Absolute Count (test 0.4 X10E3/UL 0.0-0.4 code = 70785-6) [facility] Centermonocyte count, blood, [id number] 09:48:00 Test Item Value Reference Range Interpretation Comments monocyte count, blood, automated 0.5 X10E3/UL 0.1-0.9 (test code = 742-7) [facility] Centerlymphocyte count, blood, [id number] 09:48:00 Test Item Value Reference Range Interpretation Comments lymphocyte count, blood, 3.3 X10E3/UL 0.7-3.1 H automated (test code = 731-0) [facility] CenterAbsolute [id number] 09:48:00 Test Item Value Reference Range Interpretation Comments Absolute Neutrophils (test code 7.2 X10E3/UL 1.4-7.0 H = 35606-7) [facility] Centerbasophils as percent of blood [id number] 09:48:00 Test Item Value Reference Range Interpretation Comments basophils as percent of blood 1 % leukocytes (test code = 707-0) [facility] Centereosinophils as percent of blood [id number] 09:48:00 Test Item Value Reference Range Interpretation Comments eosinophils as percent of blood 3 % leukocytes (test code = 713-8) [facility] Centermonocytes as percent of blood [id number] 09:48:00 Test Item Value Reference Range Interpretation Comments monocytes as percent of blood 4 % leukocytes (test code = 5905-5) [facility] Centerlymphocytes as percent of blood [id number] 09:48:00 Test Item Value Reference Range Interpretation Comments lymphocytes as percent of blood 29 % leukocytes (test code = 736-9) [facility] Centerneutrophils as percent of blood [id number] 09:48:00 Test Item Value Reference Range Interpretation Comments neutrophils as percent of blood 63 % leukocytes (test code = 770-8) [facility] Centerplatelet [id number] 09:48:00 Test Item Value Reference Range Interpretation Comments platelet count (test code = 377 X10E3/UL 150-379 777-3) [facility] Centerred blood cell distribution [id number] 09:48:00 Test Item Value Reference Range Interpretation Comments red blood cell distribution width 14.5 % 12.3-15.4 (test code = 788-0) [facility] hemoglobin concentration, [id number] 09:48:00 Test Item Value Reference Range Interpretation Comments mean corpuscular hemoglobin 33.0 G/DL 31.5-35.7 concentration, RBC (test code = 786-4) [facility]mean [facility]cular hemoglobin, [id number] 09:48:00 Test Item Value Reference Range Interpretation Comments mean corpuscular hemoglobin, RBC 29.1 pg 26.6-33.0 (test code = 785-6) [facility] Centermean corpuscular volume, [id number] 09:48:00 Test Item Value Reference Range Interpretation Comments mean corpuscular volume, RBC (test code 88 fL 79-97 = 787-2) [facility] Centerhematocrit, [id number] 09:48:00 Test Item Value Reference Range Interpretation Comments hematocrit, blood (test code = 4544-3) 41.5 % 34.0-46.6 [facility] Centerhemoglobin, [id number] 09:48:00 Test Item Value Reference Range Interpretation Comments hemoglobin, blood (test code = 13.7 g/dL 11.1-15.9 718-7) [facility] Centererythrocyte (RBC) [id number] 09:48:00 Test Item Value Reference Range Interpretation Comments erythrocyte (RBC) count (test 4.70 X10E6/UL 3.77-5.28 code = 789-8) [facility] Centerleukocyte count, [id number] 09:48:00 Test Item Value Reference Range Interpretation Comments leukocyte count, blood (test 11.5 X10E3/UL 3.4-10.8 H code = 6690-2) [facility] Centerblood glucose, [id number] 08:28:26 Test Item Value Reference Range Interpretation Comments blood glucose, random (test code = 387 mg/dL 2339-0) [facility]
--- NOTE | 2022-06-16 22:28 | RAD REPORT ---
EXAM DESCRIPTION: RAD - Chest Single View - 06/16/2022 10:14 pm CLINICAL HISTORY: CHEST PAIN Chest pain. COMPARISON: Chest Single View dated 06/01/2022; Chest Single View dated 05/18/2022; Chest Single View dated 04/26/2022; Chest Single View dated 03/01/2022 FINDINGS: Portable technique limits examination quality. The lungs are grossly clear. The heart is normal in size. No displaced fractures. IMPRESSION: No acute intrathoracic process suspected.
[2022-06-16] MEDS ORDERED: ONDANSETRON 4 MG/2 ML VIAL ONE (23:35)
[2022-06-16] MEDS ORDERED: MORPHINE 4 MG/ML SYR ONE (23:35)
[2022-06-16 23:47] LABS: Absolute Lymphocytes (CBC) 1.7 K/uL (0.7-4.9); Hematocrit 30.6 % (36.0-45.0); Lymphocytes % 22.7 % (15.3-44.8); MCV 93.3 fL (80-100); MPV 7.7 fL (7.6-11.3); RBC Red Blood Cell Count 3.28 M/uL (3.86-4.86)
[2022-06-16 23:51] LABS: Protime INR 0.93
[2022-06-17 00:05] LABS: ALT/SGPT 30 U/L (12-78); AST/SGOT 19 U/L (15-37); Albumin 3.2 g/dL (3.4-5.0); Alkaline Phosphatase 146 U/L (45-117); Bilirubin Total 0.2 mg/dL (0.2-1.0); Lipase 27 U/L (73-393); Protein, Total 7.1 g/dL (6.4-8.2)
[2022-06-17 00:11] LABS: Bilirubin Direct < 0.1 mg/dL (0-0.2)
[2022-06-17 00:16] LABS: Troponin High Sensitivity 108.8 pg/mL (<58.9)
[2022-06-17] MEDS ORDERED: ASPIRIN 81 MG CHEWABLE TABLET ONE (00:47)
[2022-06-17 00:48] LABS: Magnesium 1.9 mg/dL (1.8-2.4)
[2022-06-17] MEDS ORDERED: NICOTINE 21 MG/PAT TD ONE (02:13)
[2022-06-17] MEDS ORDERED: FUROSEMIDE 20 MG/ 2ML VIAL ONE (02:13)
[2022-06-17] MEDS ORDERED: ENOXAPARIN 80 MG/0.8 ML SQ ONE (02:14)
[2022-06-17] MEDS ORDERED: INSULIN -REGULAR HUMAN 50 UNIT/0.5 ML ML ONE (02:14)
--- NOTE | 2022-06-17 02:28 | ER ---
Nurse's Notes [facility] Name: Noy Lang Age: 51 yrs Sex: Female : 1970 Arrival Date: 06/16/2022 Time: 21:15 Bed 13 Private MD: Diagnosis: Subsequent non-ST elevation (NSTEMI) myocardial infarction;Unspecified combined systolic (congestive) and diastolic (congestive) heart failure Presentation: 06/16 21:37 Chief complaint: Patient states: Chest pain today around 1800. Pt reports taking three ld1 nitroglycerin with minimal relief. Coronavirus screen: At this time, the client does not indicate any symptoms associated with coronavirus-19. Ebola Screen: No symptoms or risks identified at this time. Initial Sepsis Screen: Does the patient meet any 2 criteria? No. Patient's initial sepsis screen is negative. Does the patient have a suspected source of infection? No. Patient's initial sepsis screen is negative. Risk Assessment: Do you want to hurt yourself or someone else? Patient reports no desire to harm self or others. Onset of symptoms was June 16, 2022. 21:37 Method Of Arrival: Ambulatory ld1 21:37 Acuity: ARVIND 3 ld1 Triage Assessment: 21:37 General: Appears in no apparent distress. comfortable, Behavior is calm, cooperative, ld1 appropriate for age. Pain: Complains of pain in chest Pain does not radiate. Pain currently is 2 out of 10 on a pain scale. at worst was 8 out of 10 on a pain scale. Quality of pain is described as burning, throbbing. EENT: No signs and/or symptoms were reported regarding the EENT system. Neuro: Level of Consciousness is awake, alert, obeys commands, Oriented to person, place, time, situation. Cardiovascular: Capillary refill < 3 seconds Patient's skin is warm and dry. Respiratory: Airway is patent Respiratory effort is even, unlabored. GI: Abdomen is round non-distended. OB SCRUB TECH: 21:37 LMP N/A - Post-menopause ld1 Historical: - Allergies: 21:37 Codeine; ld1 21:37 NKA; ld1 - PMHx: 21:37 abdominal cancer; Congestive heart failure; ovarian cancer; Hypertensive disorder; ld1 diabetes mellitus; Myocardial infarction; coronary atherosclerosis; uterine cancer; - PSHx: 21:37 Heart Stents; ld1 - Immunization history:: Adult Immunizations up to date, Client reports receiving the 2nd dose of the Covid vaccine. - Social history:: Smoking status: Patient reports the use of cigarette tobacco products, smokes one pack cigarettes per day. Patient/guardian denies using alcohol. Screenin:40 Abuse screen: Denies threats or abuse. Denies injuries from another. ha1 21:40 Nutritional screening: No deficits noted. Tuberculosis screening: No symptoms or risk ha1 factors identified. Fall Risk Fall in past 12 months (25 points). IV access (20 points). Total Orta Fall Scale indicates High Risk Score (45 or more points). Fall prevention measures have been instituted. Side Rails Up X 2 Placed Close to Nursing Station Frequent Obs/Assessments Occuring Family Present and informed to notify staff if the need to leave the bedside As available patient and family educated on Fall Prevention Program and Strategies. Assessment: 22:40 General: Appears uncomfortable, Behavior is cooperative. Pain: Complains of pain in ha1 chest pain Pain began suddenly. Pain: Pain currently is 10 out of 10 on a pain scale. Neuro: Level of Consciousness is awake, alert, Oriented to person, place, time, situation. Cardiovascular: Patient's skin is warm and dry. Respiratory: Reports shortness of breath on exertion Airway is patent Trachea midline Respiratory effort is even, unlabored, Respiratory pattern is regular, symmetrical, Breath sounds are clear bilaterally. 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 GI: Abdomen is non-distended, obese, Bowel sounds present X 4 quads. : No signs and/or symptoms were reported regarding the genitourinary system. Musculoskeletal: Circulation, motion, and sensation intact. Range of motion: intact in all extremities. 23:56 Reassessment: Patient and/or family updated on plan of care and expected duration. Pain ha1 level reassessed. Patient is alert, oriented x 3, equal unlabored respirations, skin warm/dry/pink. pt. reports SOB has improved. 06/17 00:55 Reassessment: Patient and/or family updated on plan of care and expected duration. Pain ha1 level reassessed. Patient is alert, oriented x 3, equal unlabored respirations, skin warm/dry/pink. 01:50 Reassessment: Patient and/or family updated on plan of care and expected duration. Pain ha1 level reassessed. Patient is alert, oriented x 3, equal unlabored respirations, skin warm/dry/pink. 02:36 Reassessment: pt. requested to want to go smoke outside, it was explained to her that ha1 she can not go outside during our care. notified care provider. patient requested to leave AMA. AMA form was signed. Vital Signs: 06/16 21:37 BP 146 / 63; Pulse 73; Resp 18; Temp 98.3(O); Pulse Ox 97% on R/A; Weight 76.66 kg; ld1 Height 5 ft. 4 in. (162.56 cm); Pain 2/10; 23:45 BP 146 / 73; Pulse 73; Resp 19 S; Pulse Ox 99% on R/A; ha1 06/17 00:50 BP 121 / 93; Pulse 60; Resp 11 S; Pulse Ox 99% on R/A; ha1 01:50 BP 150 / 67; Pulse 72; Resp 19 S; Pulse Ox 98% on R/A; ha1 06/16 21:37 Body Mass Index 29.01 (76.66 kg, 162.56 cm) ld1 ED Course: 06/16 21:15 Patient arrived in ED. dt4 21:37 Arm band placed on right wrist. ld1 21:38 Triage completed. ld1 21:43 EKG done, by ED staff. mb4 21:49 Patient has correct armband on for positive identification. Placed in gown. Bed in low ha1 position. Call light in reach. Side rails up X2. Client placed on continuous cardiac and pulse oximetry monitoring. NIBP monitoring applied. environmental monitoring technician on. 21:49 Inserted saline lock: 20 gauge in left antecubital area, using aseptic technique. Blood ha1 collected. 22:16 XRAY Chest (1 view) In Process Unspecified. EDMS 22:58 Kya Jones, LISET is Primary Nurse. ha1 23:00 Alvarez Blake PA is PHCP. cp 23:00 Nohemy Enriquez MD is Attending Physician. cp 06/17 01:20 US Extremity Venous W Compression Trae In Process Unspecified. EDMS 01:33 CT Chest For PE Angio In Process Unspecified. EDMS 02:26 Tessa Owen MD is Hospitalizing Provider. cp 02:43 No provider procedures requiring assistance completed. IV discontinued, intact, ha1 bleeding controlled, No redness/swelling at site. Pressure dressing applied. Patient maintains SpO2 saturation greater than 95% on room air. Administered Medications: 06/16 23:35 Drug: morphine 4 mg Route: IVP; Infused Over: 4 mins; Site: left antecubital; ha1 23:55 Follow up: Response: No adverse reaction; Pain is decreased; RASS: Alert and Calm (0) ha1 23:35 Drug: Zofran (Ondansetron) 4 mg Route: IVP; Site: left antecubital; ha1 23:55 Follow up: Response: No adverse reaction ha1 06/17 00:55 Drug: Aspirin Chewable Tablet 324 mg Route: PO; ha1 01:18 Follow up: Response: No adverse reaction ha1 02:25 Drug: Nicoderm CQ Patch 21 mg/24 hr 1 patches Route: Transdermal; Site: right thigh; ha1 02:40 Follow up: Response: No adverse reaction ha1 02:26 Drug: Insulin Regular Human 10 units {Co-Signature: kd3 (Babs Alfonso RN).} Route: ha1 IVP; Site: left antecubital; 02:41 Follow up: Response: No adverse reaction ha1 02:26 Drug: Lasix (furosemide) 20 mg Route: IVP; Site: left antecubital; ha1 02:41 Follow up: Response: No adverse reaction ha1 02:26 Drug: Lovenox (enoxaparin) 1 mg/kg Route: Sub-Q; Site: left upper abdomen; ha1 02:41 Follow up: Response: No adverse reaction ha1 Medication: 02:46 VIS not applicable for this client. ha1 Outcome: 02:27 Decision to Hospitalize by Provider. cp 02:43 AMA AMA form signed ha1 02:43 Condition: stable 02:43 Discharge instructions given to patient, Instructed on benefits of quitting smoking, pt. educated regarding consequences of leaving against medical advice, including but not limited to worsening of current condition. 02:53 Patient left the ED. ha1 Signatures: Dispatcher [employer] EDWA Alvarez Blake PA PA cp [place] mb4 Valentina Walker RN RN 1 Kya Jones RN RN ha1 Yodit Zambrano dt4 Babs Alfonso RN kd3 Corrections: (The following items were deleted from the chart) 06/16 21:39 21:37 Chief complaint: Patient states: Chest pain today around 1800. ld1 ld1 06/17 02:43 01:50 Response: No adverse reaction ha1 ha1
--- NOTE | 2022-06-17 02:28 | EDPHYS ---
Physician Documentation [facility] Name: Noy Lang Age: 51 yrs Sex: Female : 1970 Arrival Date: 06/16/2022 Time: 21:15 Bed 13 Private MD: ED Physician Nohemy Enriquez HPI: 06/16 23:12 This 51 yrs old Female presents to ER via Ambulatory with complaints of Chest Pain, cp Breathing Difficulty. 23:15 The patient or guardian reports chest pain that is located primarily in the anterior cp chest wall, left. 23:15 Onset: today, about 1800. The pain does not radiate. Associated signs and symptoms: cp Pertinent positives: shortness of breath, Pertinent negatives: abdominal pain, cough, diaphoresis. 23:15 The chest pain is described as burning, throbbing. cp 23:15 Duration: The patient or guardian reports a single episode, that is still ongoing, and cp unchanged. Patient reports taking nitro at home w/o relief. SENIOR MEDIA DIRECTOR: 21:37 LMP N/A - Post-menopause ld1 Historical: - Allergies: 21:37 Codeine; ld1 21:37 NKA; ld1 - PMHx: 21:37 abdominal cancer; Congestive heart failure; ovarian cancer; Hypertensive disorder; ld1 diabetes mellitus; Myocardial infarction; coronary atherosclerosis; uterine cancer; - PSHx: 21:37 Heart Stents; ld1 - Immunization history:: Adult Immunizations up to date, Client reports receiving the 2nd dose of the Covid vaccine. - Social history:: Smoking status: Patient reports the use of cigarette tobacco products, smokes one pack cigarettes per day. Patient/guardian denies using alcohol. ROS: 23:20 Constitutional: Negative for body aches, chills, fever, poor PO intake. cp 23:20 Eyes: Negative for injury, pain, redness, and discharge. cp 23:20 ENT: Negative for drainage from ear(s), ear pain, sore throat, difficulty swallowing, difficulty handling secretions. 23:20 Cardiovascular: Positive for chest pain, Negative for edema, palpitations. 23:20 Respiratory: Positive for shortness of breath, Negative for cough, wheezing. 23:20 Abdomen/GI: Positive for nausea, Negative for abdominal pain, vomiting, diarrhea, constipation. 23:20 Back: Negative for injury or acute deformity, decreased range of motion. 23:20 Neuro: Negative for altered mental status, dizziness, headache, weakness. 23:20 All other systems are negative. Exam: 21:47 ECG was reviewed by the Attending Physician. cp 23:25 Constitutional: The patient appears in no acute distress, alert, awake, cp non-diaphoretic, non-toxic, well developed, well nourished. 23:25 Head/Face: Normocephalic, atraumatic. cp 23:25 Eyes: Periorbital structures: appear normal, Conjunctiva: normal, no exudate, no injection, Sclera: no appreciated abnormality, Lids and lashes: appear normal, bilaterally. 23:25 ENT: External ear(s): are unremarkable, Nose: is normal, Mouth: Lips: moist, Oral mucosa: pink and intact, moist, Posterior pharynx: Airway: no evidence of obstruction, patent. 23:25 Neck: ROM/movement: is normal, is supple, without pain, no range of motions limitations, no nuchal rigidity. 23:25 Chest/axilla: Inspection: normal. 23:25 Cardiovascular: Rate: normal, Rhythm: regular, JVD: is not appreciated. 23:25 Respiratory: the patient does not display signs of respiratory distress, Respirations: normal, no use of accessory muscles, no retractions, labored breathing, is not present, Breath sounds: decreased breath sounds, are not appreciated, stridor, is not appreciated, wheezing: is not appreciated. 23:25 Abdomen/GI: Inspection: distension, that is moderate, Bowel sounds: active, all quadrants, Palpation: soft, in all quadrants, mild abdominal tenderness, in all quadrants. 23:25 Back: CVA tenderness, is absent. 23:25 Skin: no rash present. 23:25 Neuro: Orientation: to person, place \\T\\ time. Mentation: is normal, Motor: moves all fours, strength is normal, Sensation: is normal. Vital Signs: 21:37 BP 146 / 63; Pulse 73; Resp 18; Temp 98.3(O); Pulse Ox 97% on R/A; Weight 76.66 kg; ld1 Height 5 ft. 4 in. (162.56 cm); Pain 2/10; 23:45 BP 146 / 73; Pulse 73; Resp 19 S; Pulse Ox 99% on R/A; ha1 06/17 00:50 BP 121 / 93; Pulse 60; Resp 11 S; Pulse Ox 99% on R/A; ha1 01:50 BP 150 / 67; Pulse 72; Resp 19 S; Pulse Ox 98% on R/A; ha1 06/16 21:37 Body Mass Index 29.01 (76.66 kg, 162.56 cm) ld1 MDM: 06/16 23:04 Patient medically screened. 06/17 01:45 Data reviewed: vital signs, nurses notes, lab test result(s), EKG, radiologic studies, cp plain films, and as a result, I will admit patient. 01:45 The patient was given aspirin in the Emergency Department. Test interpretation: by ED cp physician or midlevel provider: ECG, plain radiologic studies. Physician consultation: More Gonzalez PA-C was contacted at 01:45, regarding admission, to the telemetry unit. patient's condition. 06/16 21:39 Order name: Basic Metabolic Panel; Complete Time: 00:20 ld1 06/17 00:20 Interpretation: Normal except: NA 133; CL 95; CO2 34; GLUC 332; GFR 55. cp 06/16 21:39 Order name: CBC with Diff; Complete Time: 00:20 ld1 06/17 00:20 Interpretation: Normal except: RBC 3.28; HGB 10.6; HCT 30.6; PLT 422; RDW 15.4. cp 06/16 21:39 Order name: Troponin HS; Complete Time: 00:20 ld1 06/17 00:20 Interpretation: Abnormal: Troponin HS 108.8. cp 06/16 23:11 Order name: LFT's; Complete Time: 00:20 cp 06/16 23:11 Order name: PT-INR; Complete Time: 00:20 cp 06/16 23:11 Order name: Ptt, Activated; Complete Time: 00:20 cp 06/16 21:39 Order name: XRAY Chest (1 view); Complete Time: 00:20 ld1 06/16 23:11 Order name: Influenza Screen (a \\T\\ B); Complete Time: 01:40 cp 06/16 23:11 Order name: COVID-19 SARS RT PCR (Document "Date of Onset" if Symptomatic); Complete cp Time: 01:40 06/16 23:11 Order name: Lipase; Complete Time: 00:20 cp 06/16 23:52 Order name: D-Dimer; Complete Time: 00:39 cp 06/17 00:21 Order name: BNP; Complete Time: 01:40 cp 06/17 01:40 Interpretation: Abnormal: NT PRO-BNP 1381. cp 06/17 00:21 Order name: Magnesium; Complete Time: 01:40 cp 06/17 00:40 Order name: US Extremity Venous W Compression Trae cp 06/16 21:39 Order name: EKG; Complete Time: 21:41 ld1 06/16 21:39 Order name: Cardiac monitoring; Complete Time: 23:52 ld1 06/16 21:39 Order name: EKG - Nurse/Tech; Complete Time: 21:39 ld1 06/16 21:39 Order name: IV Saline Lock; Complete Time: 23:52 1 06/16 21:39 Order name: Labs collected and sent; Complete Time: 23:52 1 06/16 21:39 Order name: O2 Per Protocol; Complete Time: 23:52 1 06/16 21:39 Order name: O2 Sat Monitoring; Complete Time: 23:52 ld1 06/17 00:40 Order name: CT Chest For PE Angio cp EC/19 21:47 Rate is 74 beats/min. Rhythm is regular. MD interval is normal. QRS interval is normal. cp QT interval is normal. T waves are Inverted in lead aVR. Interpreted by me. Reviewed by me. Administered Medications: 23:35 Drug: morphine 4 mg Route: IVP; Infused Over: 4 mins; Site: left antecubital; ha1 23:55 Follow up: Response: No adverse reaction; Pain is decreased; RASS: Alert and Calm (0) ha1 23:35 Drug: Zofran (Ondansetron) 4 mg Route: IVP; Site: left antecubital; ha1 23:55 Follow up: Response: No adverse reaction 1 06/17 00:55 Drug: Aspirin Chewable Tablet 324 mg Route: PO; ha1 01:18 Follow up: Response: No adverse reaction ha1 02:25 Drug: Nicoderm CQ Patch 21 mg/24 hr 1 patches Route: Transdermal; Site: right thigh; ha1 02:40 Follow up: Response: No adverse reaction ha1 02:26 Drug: Insulin Regular Human 10 units {Co-Signature: kd3 (Babs Alfonso RN).} Route: ha1 IVP; Site: left antecubital; 02:41 Follow up: Response: No adverse reaction ha1 02:26 Drug: Lasix (furosemide) 20 mg Route: IVP; Site: left antecubital; ha1 02:41 Follow up: Response: No adverse reaction ha1 02:26 Drug: Lovenox (enoxaparin) 1 mg/kg Route: Sub-Q; Site: left upper abdomen; ha1 02:41 Follow up: Response: No adverse reaction ha1 Disposition: 03:48 STAFF ATTESTATION STATEMENT: I was immediately available onsite in the emergency sd2 department for consultation in the care of this patient. I did not see or examine this patient. Nohemy Enriquez MD. Disposition Summary: 06/17/22 02:50 Left Against Medical Advice Location: Home(06/17/22 02:50) cp Problem: new(06/17/22 02:50) cp Symptoms: have improved(06/17/22 02:50) cp Condition: Stable(06/17/22 02:50) cp Diagnosis - Subsequent non-ST elevation (NSTEMI) myocardial infarction(06/17/22 02:50) cp - Unspecified combined systolic (congestive) and diastolic (congestive) heart cp failure(06/17/22 02:50) Followup: cp - With: Private Physician - When: Today - Reason: Recheck today's complaints Signatures: Dispatcher [employer] EDMS Alvarez Blake PA PA cp Valentina Walker RN RN 1 Nohemy Enriquez MD MD sd2 Kya Jones RN RN 1 Babs Alfonso RN kd3 Corrections: (The following items were deleted from the chart) 02:48 02:27 Inpatient Admission cp sb4 02:48 02:27 Tessa Owen cp sb4 02:48 02:27 Telemetry/MedSurg (Inpatient) cp sb4 02:48 02:27 Stable cp sb4 02:48 02:27 new cp sb4 02:48 02:27 have improved cp sb4 02:48 02:27 Standard cp sb4 02:48 02:27 cp sb4 02:48 02:27 Subsequent non-ST elevation (NSTEMI) myocardial infarction cp sb4 02:48 02:27 Unspecified combined systolic (congestive) and diastolic (congestive) heart sb4 failure cp
[2022-06-17 04:18] VITALS: TEMP 98.3
[2022-06-17 04:21] VITALS: BP 150/67; O2SAT 98
--- NOTE | 2022-06-17 12:24 | RAD REPORT ---
EXAM DESCRIPTION: US - Extrem Venous W Compress Trae - 06/17/2022 1:18 am CLINICAL HISTORY: The patient is 51 years old and is Female; Pain TECHNIQUE: Real-time duplex ultrasound scan of the bilateral lower extremity veins integrating B-mod e two-dimensional vascular structure, Doppler spectral analysis, color flow Doppler imaging and compr ession. COMPARISON: No relevant prior studies available. FINDINGS: Right deep veins: Unremarkable. No DVT in the visualized common femoral, femoral, or p opliteal veins. The veins demonstrate normal color flow, are normally compressible where visualized , with normal phasic flow and/or augmentation response. Left deep veins: Unremarkable. No DVT in the visualized common femoral, femoral, or popliteal v eins. The veins demonstrate normal color flow, are normally compressible where visualized, with nor mal phasic flow and/or augmentation response. Soft tissues: No acute findings. IMPRESSION: No evidence of DVT in the bilateral lower extremity veins. Electronically signed by: Vaibhav Arrieta MD 06/17/2022 1:43 AM CDT Due to temporary technical issues with the PACS/Fluency reporting system, reports are being signed by the in house radiologists without review as a courtesy to insure prompt reporting. The interpreting radiologist is fully responsible for the content of the report.
--- NOTE | 2022-06-17 12:39 | RAD REPORT ---
EXAM DESCRIPTION: CT - Chest For Pe Angio - 06/17/2022 1:31 am CLINICAL HISTORY: The patient is 51 years old and is Female; shortness of breath TECHNIQUE: Axial computed tomographic angiography images of the chest with intravenous contrast. T his CT exam was performed using one or more of the following dose reduction techniques: automated e xposure control, adjustment of the mA and/or kV according to patient size, and/or use of iterative re construction technique. MIP reconstructed images were created and reviewed. Oblique reformatted images were created and reviewed. COMPARISON: Chest radiograph of the same day and CTA chest dated 06/01/2022. FINDINGS: PULMONARY ARTERIES: Unremarkable. No pulmonary embolism. AORTA: No acute findings. No thoracic aortic aneurysm. LUNGS: Unremarkable. No mass. No consolidation. PLEURAL SPACE: Unremarkable. No significant effusion. No pneumothorax. HEART: Advanced coronary calcifications. No significant pericardial effusion. No evidence of RV dysfunction. BONES/JOINTS: No acute fracture. No dislocation. SOFT TISSUES: Unremarkable. LYMPH NODES: Unremarkable. No enlarged lymph nodes. IMPRESSION: No pulmonary embolism. No acute intrathoracic abnormality. Electronically signed by: Reece Rios DO 06/17/2022 2:06 AM CDT Due to temporary technical issues with the PACS/Fluency reporting system, reports are being signed by the in house radiologists without review as a courtesy to insure prompt reporting. The interpreting radiologist is fully responsible for the content of the report.
--- NOTE | 2022-06-17 16:14 | EKG ---
Test Date: 2022-06-16 Test Time: 21:44:28 Hatchery Worker: REBECCA MEASUREMENT RESULTS: Intervals: Rate: 74 WV: 144 QRSD: 100 QT: 420 QTc: 466 [place]: P: 45 WV: 144 QRS: -43 T: 77 INTERPRETIVE STATEMENTS: Normal sinus rhythm Left axis deviation Incomplete right bundle branch block Voltage criteria for left ventricular hypertrophy Nonspecific ST and T wave abnormality Prolonged QT Abnormal ECG Compared to ECG 06/01/2022 03:17:32 ST (T wave) deviation now present Prolonged QT interval now present Early repolarization no longer present Electronically Signed On 06-17-22 16:13:37 CDT by Matthew Frederick
== END 2022-06-17 02:53 | disposition left against medical advice (07) ==
LOC: ER 21:13
DX: I22.2 Subsequent non-ST elevation (NSTEMI) myocardial infarction (principal); I21.9 Acute myocardial infarction, unspecified; I11.0 Hypertensive heart disease with heart failure; I50.40 Unspecified combined systolic (congestive) and diastolic (congestive) heart failure; F17.210 Nicotine dependence, cigarettes, uncomplicated; E11.9 Type 2 diabetes mellitus without complications; Z95.818 Presence of other cardiac implants and grafts; Z88.5 Allergy status to narcotic agent; Z85.43 Personal history of malignant neoplasm of ovary; Z85.42 Personal history of malignant neoplasm of other parts of uterus
CPT/HCPCS: 36415; 71045; 71275; 80048; 80076; 83690; 83735; 83880; 84484; 85025; 85379; 85610; 85730; 87804; 93005; 93970; 96372; 96374; 96375; 99285; J1815; J1940; J2405; Q9967; U0003

== ENCOUNTER 2022-06-17 07:41 | Inpatient (IN) | payer BC ==
--- OUTSIDE RECORDS SUMMARY | 2022-06-17 07:55 | XMS REPORT | Continuity of Care Document ---
:[address] [facility] t Address [address] [place] [address] Care Team Providers Name Role Phone None, None Primary Care Physician Unavailable POLLY WARREN Attending Clinician Unavailable ZOIE MUNSON Attending Clinician Unavailable THALIA SUTTON Attending Clinician Unavailable Yann Anthony MD Attending Clinician YANN ANTHONY Attending Clinician Unavailable Paul Novoa MD Attending Clinician Mary Blevins MD Attending Clinician Milagro Bautista Attending Clinician [phone] Marion Nathan MD Attending Clinician Alexia Del Valle Attending Clinician Unavailable Jamel Grove RPH Attending Clinician Unavailable GC_SEAMY_Jose Angela_A Attending Clinician Unavailable ADRIANA HUMPHREY Attending Clinician Unavailable Kiarra Ramos RN Attending Clinician Unavailable Blayne Robbins MD Attending Clinician Patricia Thompson Attending Clinician + BLAYNE ROBBINS Attending Clinician Unavailable Briana ResidentMD, Polly Mason Attending Clinician + Clarissa Roberson MD Attending Clinician + Jen Orta MD Attending Clinician + JAMEL GROVE Attending Clinician Unavailable Chidi HUTCHINS, Anitra Attending Clinician Unavailable Guy ResidentMD, Brayan Mason Attending Clinician + GIBSON DAY Attending Clinician Unavailable LAVERNE BURGOS Attending Clinician Unavailable Mahesh ResidentMD, Gibson Attending Clinician + Jessica Liriano Attending Clinician Unavailable Gonzalo ResidentMD, Anna S Attending Clinician + Isidro ResidentMD, Thomas M Attending Clinician [phone] Yojana ResidentMD, Cammy Harrison Attending Clinician + Gibson Day MD Attending Clinician + CLARISSA ROBERSON Attending Clinician Unavailable Geeta Suzette Regalado Attending Clinician Unavailable Danielle Wilson MD Attending Clinician + Sweetie Grimes MD Attending Clinician Elijah Lewis LVN Attending Clinician Unavailable Deysi Salter NP Attending Clinician Jamari Monae MD S Attending Clinician + Shade May MD Attending Clinician + Radha Ambrosio MD M Attending Clinician + Thalia Meehan Attending Clinician + Yodit Keith Attending Clinician + MARY BLEVINS Attending Clinician Unavailable SWEETIE GRIMES Attending Clinician Unavailable Pricilla Chong RN Attending Clinician Unavailable DEYSI SALTER Attending Clinician Unavailable Arin Ramirez RN Attending Clinician Unavailable Radha Magaña DO Attending Clinician Teodoro Romero CNM Attending Clinician JUVENTINO LAGOS Attending Clinician Unavailable QING DAWSON Attending Clinician Unavailable Joie HATCH, Argenis T Attending Clinician Sammie Juan Attending Clinician [phone] Alexandra Nagel Attending Clinician [phone] Juany Mcwilliams Attending Clinician Unavailable Kiarra Silva Attending Clinician Unavailable ANDREA NAVARRETE Attending Clinician Unavailable MALIK MEDINA Attending Clinician Unavailable Status, Fax Attending Clinician Unavailable Clarissa Maldonado Attending Clinician [phone] Re Owen Attending Clinician Unavailable Nicanor MedAdherence, Mallory Attending Clinician UnavailTiffany Enriquez Attending Clinician Unavailable Heri MedCaren Pringle Attending Clinician Unavailable Hoa Duong Attending Clinician [phone] Ragini Toro Attending Clinician Unavailable Lou MedAdhermaile,, Re Attending Clinician Unavailable Radha Tom Attending Clinician Unavailable Casandra Kwan Attending Clinician Unavailable Napoleon Ramirez Attending Clinician Unavailable Ailyn Zavala Attending Clinician [phone] Jane Lerner Attending Clinician Unavailable Krystina Morrow Attending Clinician Unavailable Reece King Attending Clinician Unavailable Kiarra Aguirre Attending Clinician Unavailable Timmy Cohen Attending Clinician Unavailable Lay Tom Attending Clinician Unavailable Kate Owen Attending Clinician [phone] Shikha Felton Attending Clinician Unavailable Alexandria Palma Attending Clinician Unavailable Aura Perry Attending Clinician Unavailable Sabrina Boateng Attending Clinician Unavailable Enmanuel Jordan Attending Clinician Unavailable GC_SEFP_Rivera_A Admitting Clinician Unavailable Sammie Juan Unavailable [phone] Hoa Duong Unavailable [phone] Clarissa Maldonado Unavailable [phone] Kate Owen Unavailable [phone] Payers Payer Name Policy Type Policy Number Effective Date Expiration Date S ource BCBS HMO [id number] 2021 00:00:00 [place] [id number] 2021 ADVANTAGE (HMO) 00:00[facility]00 [id number] 2018 2018 [id number] 2017 2017 [facility] [id number] 2017 2017 [facility] 00:00:00 00:00:00 [facility] Problems Condition Condition Condition Status Onset [...] be d d different from the original. Gary 1 Priority 2 Essential Essential Disease Active Overview: King (primary) (primary) 12-03 [facility] hypertensi hypertensi 00:00: g of this on on 00 note might be different from the original. Gary 3 Priority 1 Gary V Gary V Disease Active Overview: King diagnosis diagnosis 12-03 [facility] 00:00: g of this 00 note might be different from the original. GAF Score:45 Major Major Disease Active Overview: [facility] depressive depressive 12-02 [facility] disorder, disorder, 00:00: g of this recurrent, recurrent, 00 note unspecifie unspecifie might be d d different from the original. Gary 1 Priority 1 Unavailabi Unavailabi Disease Active Overview : King lity and lity and 12-02 [facility] inaccessib inaccessib 00:00: g of this ility of ility of 00 note health-car health-car might be e e different facilities facilities from the original. Gary 4 Priority 1 Occupation Occupation Disease Active Overview : Malik al problem al problem 12-02 [facility] 00:00: g of this 00 note might be different from the original. Gary 4 Priority 2 Problem Problem Disease Active Overview: Joe is related to related to 12-02 [facility] primary primary 00:00: g of this support support 00 note group group might be different from the original. Gary 4 Priority 3 Economic Economic Disease Active Overview: [facility] problem problem 12-02 [facility] 00:00: g of this 00 note might be different from the original. Gary 4 Priority 4 Nausea and Condition Active [...] Active 2015-082016-06-16 Dewayne Maldonado mellitus, 0- 09:12:09 [facility] Comm uni type II 00:00: ty 00 Health Tobacco Condition Active 2015-082016-06-16 Joel 1 PPD [facility] user 0 09:12:09 Clarissa since 16 Commu ni 00:00: yrs ty 00 Health Obesity Condition Active 2015-082016-06-16 Dewayne Maldonado 0 09:12:09 [facility] Communi 00:00: ty 00 Health Cervical Cervical Disease Active 2014-08 April lopes cancer cancer 0-06 Health screening screening 00:00: 00 Tobacco Tobacco Disease Active [facility] use use 8-05 Health disorder disorder 00:00: 00 Tobacco Tobacco Disease Active [facility] abuse abuse 8-05 Health counseling counseling 00:00: 00 Overweight Overweight Disease Active H shahram 805 Health 00:00: 00 Exercise Exercise Disease Active April lopes counseling counseling 8-05 He alth 00:00: 00 Diabetes Diabetes Disease Active April lopes mellitus mellitus 01-14 Health type 2 type 2 00:00: with with 00 complicati complicati ons ons Ingrown Ingrown Disease Active [facility] right big right big 5- Heal toenail toenail 00:00: 00 UTI (Lower UTI (Lower Disease Active H arris Urinary Urinary 15 Health Tract Tract 00:00: Infection) Infection) 00 Shingles Shingles Disease Active April lopes 4-22 Health 00:00: 00 Yeast Yeast Disease Active 2013-08 [facility] infection infection 1- Heal th 00:00: 00 left left Disease [...] Health 00:00: 00 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 hyperchole 5-23 He alth sterolemia sterolemia 00:00: and and 00 hypertrigl hypertrigl yceridemia yceridemia GERD GERD Disease Active [facility]ik (gastroeso (gastroeso 10-10 He alth phageal phageal 00:00: reflux reflux 00 disease) disease) Major Major Disease Active [facility] depression depression 1-17 He alth , , 00:00: recurrent recurrent 00 Homeless Homeless Disease Active 2011-08 [facility] 10-02 Health 00:00: 00 Mild HTN Mild HTN Disease Active 2011-08 [facility] 10-02 Health 00:00: 00 Depression Depression Disease Active 2011-08 H [facility]is 10-02 Health 00:00: 00 Positive Positive Disease [facility] Health treated treated 00:00: 00 Rash Rash Disease Active [facility] Visual Visual Disease Active [facility] disturbanc disturbanc He alth e e History of Past Illness Condition Condition Condition Status Onset Resolution Last Treating Co mments Source Name Details Category Date Date Treatment Clinician Date Mammogram, Condition Inactiv 2016-082018-07-30 2017-07-30 Dewayne King Screening e 09-30 00:00:00 13:10:31 Clarissa Co mmuni 00:00: ty 00 Health URI Condition Inactiv 2017-12-16 2016-12-16 Dewayne Owen e 12-16 00:00:00 14:36:53 Kate Commu ni 00:00: ty 00 Health Allergies, Adverse Reactions, Alerts Allergy Allergy Status Severity Reaction(s) Onset Inactive Treating Comm ents Source Name Type Date Date Clinician Codeine Propensi Active Anaphylaxis, 2019-0806/08/20 2 Malik ty to Swelling 0-22 2 patient Healt h adverse 00:00: states reaction 00 she is s to not drug allergic to Codeine CODEINE Drug Active High 2015-08 [facility] allergy Criticali 0-19 Commun i (disorde ty 00:00: ty r) 00 Health Codeine Allergy Active 2015-08 [place] to 0-19 Health substanc 00:00: e 00 Lamotrig Propensi Active 2013-08 rash Malik ine ty to -16 Health adverse 00:00: reaction 00 s to drug Family History Family Member Diagnosis Comments Start Date Stop Date Source Natural father Cancer [facility] Paternal grandmother Cancer Joe is Health Social History Social Habit Start Date Stop Date Quantity Comments Source History of tobacco Cigarette Smoker [facility] use Exposure to 2022-06-05 2022-06-15 Not sure [facility] SARS-CoV-2 (event) 00:00:00 10:50:00 Alcohol intake 2022-06-11 2022-06-11 Current non-drinker H arr Health 00:00:00 00:00:00 of alcohol (finding) History [facility] Food 2022-04-29 2022-04-29 1 [facility] Worry 00:00:00 00:00:00 History [facility] Food 2022-04-29 2022-04-29 1 [facility] Scarcity 00:00:00 00:00:00 History SDTN 2022-03-18 2022-03-18 1 [facility] h Alcohol Frequency 00:00:00 00:00:00 History SDOH 2022-03-18 2022-03-18 0 [facility] Alcohol Std Drinks 00:00:00 00:00:00 History SDOH 2022-03-18 2022-03-18 1 [facility] Alcohol Binge 00:00:00 00:00:00 History SDOH 2022-03-18 2022-03-18 5 [facility] h Social Connections 00:00:00 00:00:00 Phone History SDOH 2022-03-18 2022-03-18 5 [facility] Social Connections 00:00:00 00:00:00 Get Together History SDOH 2022-03-18 2022-03-18 3 [facility] Social Connections 00:00:00 00:00:00 Faith History SDOH 2022-03-18 2022-03-18 2 [facility] Healt [...] 00:00:00 00:00:00 History SDOH 2022-03-18 2022-03-18 2 [facility] Housing Unable to 00:00:00 00:00:00 Pay History SDOH 2022-03-18 2022-03-18 1 [facility] Housing Places 00:00:00 00:00:00 Lived History SDOH 2022-03-18 2022-03-18 2 [facility] Housing Homeless 00:00:00 00:00:00 Last Year Cigarettes smoked 2022-01-19 2022-01-19 [facility] current (pack per 00:00:00 00:00:00 day) - Reported Cigarette 2022-01-19 2022-01-19 [facility] pack-years 00:00:00 00:00:00 Tobacco use and 2022-01-19 2022-01-19 Smokeless tobacco [facility] exposure 00:00:00 00:00:00 non-user drug use, illicit 2020-07-02 2020-07-02 [facility] 15[facility]12[facility]44 Health alcohol use 2020-07-02 2020-07-02 Never [facility] 15:12:44 15:12:44 Health social history E&M 2020-07-02 2020-07-02 Single. Born in [facility] 15:12:44 15:12:44 [facility]. City: [facility]. State: [place]. 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 Sex at : Female. Sexual orientation: Heterosexual. Gender identity: Female. Gender of partner(s): Male. Age of first sexual intercourse: 16. Sexually Active: Yes. sexual orientation 2020-07-02 2020-07-02 Heterosexual [facility] 15:12:44 15:12:44 Health social history 2020-07-02 2020-07-02 reviewed today [facility] reviewed E&M 15:12:44 15:12:44 Health is there any 2020-07-02 2020-07-02 No [facility]nelson chance that you 15:12:44 15:12:44 Health could [...] Health sex at 2016-06-16 2016-06-16 Female [facility] [place] [facility] 08:28:26 08:28:26 Health Occupation #1 2016-06-16 2016-06-16 [employer] [facility] 08:28:26 08:28:26 Health Tobacco Comment 2015-03-04 2015-03-04 began smoking [facility] 00:00:00 00:00:00 cessation on 02/13/15 @ History SDOH 2012-08-10 2012-08-10 recovery 2000 [facility] alth Alcohol Comment 00:00:00 00:00:00 Sex [birth year] At [birth year] [facility] alth 00:00:00 00:00:00 Smoking Status Start Date Stop Date Source Smokes tobacco daily 2022-01-19 00:00:00 [facility] Medications Ordered Filled Start Stop Current Ordering Indication Dosage Frequency Signature Comments Components Source Medication Medication Date Date Medication? Clinician (SIG) Name Name furosemide 2021-08 Yes Edema, 40mg Take 1 [facility] ris (LASIX) 40 0-20 unspecified tablet by [facility] mg tablet 00:00: type mouth 2 00 times daily as needed for Other (swelling) benzocaine- 2021-08 Yes Sore throat by Mucous [facility] menthoL 0-14 [facility] 15-2.3 mg 00:00: route Lozg 00 benzocaine- 2021-08 Yes Sore throat by Mucous [facility] menthoL 0-14 [facility] 15-2.3 mg 00:00: route Lozg 00 morphine 2021-08 Yes Cancer 15mg Take 1 [facility] (MS IR) 15 0-11 related tablet by ealth mg tablet 00:00: pain mouth 00 every 6 hours as needed for Pain methadone 2021-08 Yes Cancer 5mg Take 1 Joe is (DOLOPHINE) 0-11 related tablet by [facility] 5 mg tablet 00:00: pain mouth at 00 bedtime nightly gabapentin 2021-08 Yes Neuropathy 1200mg Take 2 [facility]ik (NEURONTIN) 0-11 tablets by alth 600 mg 00:00: mouth 3 tablet 00 times daily morphine 2021-08 Yes Cancer 15mg Take 1 [facility] (MS IR) 15 0-11 related tablet by H ealth mg tablet 00:00: pain mouth 00 every 6 hours as needed for Pain methadone 2021-08 Yes Cancer 5mg Take 1 Joe is (DOLOPHINE) 0-11 related tablet by Health 5 mg tablet 00:00: pain mouth at 00 bedtime nightly gabapentin 2021-08 Yes Neuropathy 1200mg Take 2 [facility] (NEURONTIN) 0-11 tablets by alth 600 mg 00:00: mouth 3 tablet 00 times daily morphine ER Yes Cancer 15mg Q.5D Take 1 [facility] r[facility] (MS CONTIN) 9-30 associated tablet by Health 15 mg 00:00: pain mouth 2 extended 00 times release daily tablet HYDROcodone Yes Cancer 1{tbl} Take 1 Malik -acetaminop 9-30 associated tablet by Health hen (Yammer) 00:00: pain mouth 10-325 mg 00 every 8 tablet hours as needed for Pain morphine ER 2021-0 2021- No Cancer 15mg Q.5D Take 1 H arris (MS CONTIN) 9-30 10-11 associated tablet by Health 15 mg 00:00: 00:00 pain mouth 2 extended 00 :00 times release daily tablet HYDROcodone 2021-0 2021- No Cancer 1{tbl} Take 1 Malik -acetaminop 9-30 10-11 associated tablet by [facility] hen (Yammer) 00:00: 00:00 pain mouth 10-325 mg 00 [...] Malik -acetaminop 9-30 10-11 associated tablet by [facility] hen ([place]ammer) 00:00: 00:00 pain mouth 10-325 mg 00 :00 every 8 tablet hours as needed for Pain HYDROcodone 2021-0 2021- No Cancer 1{tbl} Take 1 Malik -acetaminop 9-29 09-30 associated tablet by Health hen (Yammer) 00:00: 00:00 pain mouth 10-325 mg 00 :00 every 8 tablet hours as needed for Pain HYDROcodone 2021-0 2021- No Cancer 1{tbl} Take 1 Malik -acetaminop 05-27-30 associated tablet by [facility] hen (NEW PALESTINE) 00:00: 00:00 pain mouth 10-325 mg 00 :00 every 8 tablet hours as needed for Pain HYDROcodone 2021-0 2021- No Cancer 1{tbl} Take 1 Malik -acetaminop 05-27-30 associated tablet by [facility] hen (NEW PALESTINE) 00:00: 00:00 pain mouth 10-325 mg 00 :00 every 8 tablet hours as needed for Pain polyethylen Yes Cancer Mix 1 Alberto ris e glycol 9-20 associated packet ( [facility] 3350 00:00: pain grams) (GLYCOLAX) 00 into [...] Alberto ris e glycol 9-20 associated packet ([address] [place] [address] 3350 00:00: pain grams) (GLYCOLAX) 00 into 4 to 17 gram 8 ounces oral powder of water, packet juice, soda, tea or coffee and drink once daily as directed omeprazole 0 Yes Gastroesoph 20mg QD Take 1 Malik (PRILOSEC) 9-20 ageal capsule by He alth 20 mg 00:00: reflux mouth delayed 00 disease, daily release unspecified capsule whether esophagitis present furosemide Yes Mild HTN 20mg Q.5D Take 1 H arris (LASIX) 20 9-20 tablet by Heal th mg tablet 00:00: mouth 2 00 times daily polyethylen 0 Yes Cancer Mix 1 Alberto ris e glycol 9-20 associated packet ([address] [place] [address] 3350 00:00: pain grams) (GLYCOLAX) 00 into [...] 2022- Yes Diabetes 1[drp] Administer Malik (MYDRIACYL) 05-18 mellitus 1 Drop in Health 0.5 % 00:00: 23:59 type 2 with each eye ophthalmic 00 :00 complicatio once as solution ns needed for up to 1 dose (for poor retina scan image) tropicamide 2022- Yes Diabetes 1[drp] Administer Malik (MYDRIACYL) 05-18 mellitus 1 Drop in Health 0.5 % 00:00: 23:59 type 2 with each eye ophthalmic 00 :00 complicatio once as solution ns needed for up to 1 dose (for poor retina scan image) tropicamide 2022- Yes Diabetes 1[drp] Administer Malik (MYDRIACYL) 05-18 mellitus 1 Drop in Health 0.5 % 00:00: 23:59 type 2 with each eye ophthalmic 00 :00 complicatio once as solution ns needed for up to 1 dose (for poor retina scan image) tropicamide 2022- Yes Diabetes 1[drp] Administer Malik (MYDRIACYL) 05-18 mellitus 1 Drop in Health 0.5 % 00:00: 23:59 type 2 with each eye ophthalmic 00 :00 complicatio once as solution ns needed for up to 1 dose (for poor retina scan image) furosemide 2021- No Mild HTN 20mg Q.5D Take 1 Malik (LASIX) 20 9-20 10-20 tablet by [facility] mg tablet 00:00: 00:00 mouth 2 00 :00 times daily tropicamide 2022- Yes Encounter 1[drp] Administer Malik (MYDRIACYL) 05-05 for 1 Drop in He alth 0.5 % 00:00: 23:59 diabetes each eye ophthalmic 00 :00 type 2 eye once as solution exam needed for up to 1 dose (for poor retina scan image) tropicamide 2022- Yes Encounter 1[drp] Administer Malik (MYDRIACYL) 05-05 for 1 Drop in He alth 0.5 % 00:00: 23:59 diabetes each eye ophthalmic 00 :00 type 2 eye once as solution exam needed for up to 1 dose (for poor retina scan image) tropicamide 2022- Yes Encounter 1[drp] Administer Malik (MYDRIACYL) 05-05 for 1 Drop in He alth 0.5 % 00:00: 23:59 diabetes each eye ophthalmic 00 :00 type 2 eye once as solution exam needed for up to 1 dose (for poor retina scan image) tropicamide 2022- Yes Encounter 1[drp] Administer Malik (MYDRIACYL) 05-05 for 1 Drop in He alth 0.5 % 00:00: 23:59 diabetes each eye ophthalmic 00 :00 type 2 eye once as solution exam needed for up to 1 dose (for poor retina scan image) lisinopriL Yes Mild HTN 10mg QD Take 1 H arris (PRINIVIL) 04-29 tablet by [facility] th 10 mg 00:00: mouth tablet 00 [...] 1 H arris (PRINIVIL) 04-29 tablet by [facility] 10 mg 00:00: mouth tablet 00 daily gabapentin Yes Neuropathy 600mg Take 1 Malik (NEURONTIN) 04-29 tablet by [facility] lt 600 mg 00:00: mouth 3 tablet [...] 1 Malik -acetaminop 04-29 associated tablet by [facility] hen (NORCO) 00:00: pain mouth 10-325 mg 00 every 8 tablet hours as needed for Pain lisinopriL Yes Mild HTN 10mg QD Take 1 H arris (PRINIVIL) 04-29 tablet by [facility] 10 mg 00:00: mouth tablet 00 daily gabapentin Yes Neuropathy 600mg Take 1 Malik (NEURONTIN) 04-29 tablet by [facility] lt 600 mg 00:00: mouth 3 tablet [...] 1 H arris (PRINIVIL) 04-29 tablet by [facility] 10 mg 00:00: mouth tablet 00 [...] give 2nd dose in other nostril gabapentin 2021-2021- No Neuropathy 600mg Take 1 Malik (NEURONTIN) 04-2911 tablet by He alth 600 mg 00:00: 00:00 mouth 3 tablet 00 :00 times daily gabapentin 2021-2021- No Neuropathy 600mg Take 1 Malik (NEURONTIN) 04-2911 tablet by He alth 600 mg 00:00: 00:00 mouth 3 tablet 00 :00 times daily morphine ER 2021-2021- No Cancer 15mg Q.5D Take 1 H arris (MS CONTIN) 04-29 associated tablet by Health 15 mg 00:00: 00:00 pain mouth 2 extended 00 :00 times release daily tablet morphine ER 2021-2021- No Cancer 15mg Q.5D Take 1 H arris (MS CONTIN) 04-29 associated tablet by Health 15 mg 00:00: 00:00 pain mouth 2 extended 00 :00 times release daily tablet morphine ER 2021-2021- No Cancer 15mg Q.5D Take 1 H arris (MS CONTIN) 04-29 associated tablet by Health 15 mg 00:00: 00:00 pain mouth 2 extended 00 :00 times release daily tablet HYDROcodone 2021-2021- No Cancer 1{tbl} Take 1 Malik -acetaminop 04-29 associated tablet by [place]!) 00:00: 00:00 pain mouth 10-325 mg 00 :00 every 8 tablet hours as needed for Pain HYDROcodone 2021-0 2021- No Cancer 1{tbl} Take 1 Malik -acetaminop 04-29 associated tablet by [place]!) 00:00: 00:00 pain mouth 10-325 mg 00 :00 every 8 tablet hours as needed for Pain HYDROcodone 2021-0 2021- No Cancer 1{tbl} Take 1 Malik -acetaminop 04-29 associated tablet by [place]!) 00:00: 00:00 pain mouth 10-325 mg 00 [...] 40mg Take 40 mg Malik (PROZAC) 40 8-23 04- episode of by mouth Health mg capsule 11:50: 00:00 recurrent 15 :00 major depressive disorder FLUoxetine 2021- No Moderate 40mg Take 40 mg Malik (PROZAC) 40 8-23 04- episode of by mouth Health mg capsule 11:50: 00:00 recurrent 15 :00 major depressive disorder FLUoxetine 2021- No Moderate 40mg Take 40 mg [facility]ik (PROZAC) 40 8- 08- episode of by mouth Health mg capsule 11:50: 00:00 recurrent 15 :00 major depressive disorder FLUoxetine 2021- No Moderate 40mg Take 40 mg [facility]ik (PROZAC) 40 8- 08- episode of by mouth Health mg capsule 11:50: 00:00 recurrent 15 :00 major depressive disorder FLUoxetine 2021- No Moderate 40mg Take 40 mg [facility] (PROZAC) 40 8- 08-26 episode of by mouth Health mg capsule [...] (GLUCOPHAGE 04-23 d type 2 tablet by [facility] ) 850 mg 00:00: diabetes mouth 2 tablet 00 mellitus times with daily with hyperglycem meals ia metoprolol Yes Primary 25mg QD Take 1 [facility] succinate 04-23 hypertensio tablet by [facility] (TOPROL XL) 00:00: n mouth 25 mg [...] Malik n (LIPITOR) 04-23 mellitus tablets by [facility] 40 mg 00:00: without mouth at tablet 00 complicatio bedtime n nightly insulin Yes Uncontrolle 80U Q.5D Inject 80 [facility] detemir 04-23 d type 2 Units [facility] U-100 00:00: diabetes under the (LEVEMIR 00 mellitus skin 2 U-100 with times INSULIN) hyperglycem daily 100 unit/mL ia injection lidocaine Yes sciatica 1{patch QD Apply 1 Malik (LIDODERM) 04-23 } Patch to [facility] 5 % patch 00:00: skin as 00 directed daily Leave patch(es) on for up to 12 hours, then 12 hours off. budesonide- Yes Reactive 2{puff} Q.5D Inhale 2 [facility] formoteroL 04-23 airway puff by [facility] (SYMBICORT) 00:00: disease, mouth 2 80-4.5 00 mild time a mcg/actuati intermitten day. Rinse on inhaler t, mouth uncomplicat after each ed use. albuterol Yes Reactive 2{puff} Inhale 2 Malik 90 04-23 airway Puffs by [facility] mcg/actuati 00:00: disease, mouth 4 on inhaler 00 mild times intermitten daily as t, needed for uncomplicat Wheezing ed nitroGLYCER Yes Ischemic Dissolve 1 Malik IN 04-23 heart tablet [facility] (NITROSTAT) 00:00: disease under the 0.4 [...] time. gabapentin Yes Neuropathy 400mg Take 1 [facility]ik (NEURONTIN) 8- capsule by alth 400 mg 00:00: mouth 3 capsule 00 times daily insulin Yes Diabetes Sliding Alberto ris lispro 8 mellitus scale if Healt h (HUMALOG 00:00: without glucose U-100 00 complicatio 201-250 INSULIN) n inject 3 100 unit/mL Units injection under the skin; If 251-300 inject 6 Units; If 301-350 inject 9 Units. Check blood sugar 30 minutes before meals. metFORMIN Yes Uncontrolle 850mg Q.5D Take 1 Malik (GLUCOPHAGE 8- d type 2 tablet by [facility] ) 850 mg 00:00: diabetes mouth 2 tablet 00 mellitus times with daily with hyperglycem meals ia metoprolol Yes Primary 25mg QD Take 1 Alonzo rris succinate 04-23 hypertensio tablet by [facility] (TOPROL XL) 00:00: n mouth 25 mg 00 daily extended release tablet blood Yes Diabetes Use as Malik glucose 04-23 mellitus directed Heal meter kit 00:00: without to check 00 complicatio blood n glucose blood Yes Diabetes 1{each} Use 4 Joe is glucose 04-23 mellitus times [facility] test strips 00:00: without daily . 00 complicatio n lancets 28 Yes Diabetes 1{each} Use 4 Malik gauge 8- mellitus times Health 00:00: without daily . 00 complicatio n atorvastati Yes Diabetes 80mg Take 2 Malik n (LIPITOR) 04-23 mellitus tablets by [facility] 40 mg 00:00: without mouth at tablet 00 complicatio bedtime n nightly insulin Yes Uncontrolle 80U Q.5D Inject 80 Malik detemir 8- d type 2 Units Health U-100 00:00: diabetes under the (LEVEMIR 00 mellitus skin 2 U-100 with times INSULIN) hyperglycem daily 100 unit/mL ia injection lidocaine Yes sciatica 1{patch QD Apply 1 Malik (LIDODERM) 8 } Patch to Healt h 5 % patch 00:00: skin as 00 directed daily Leave patch(es) on for up to 12 hours, then 12 hours off. budesonide- Yes Reactive 2{puff} Q.5D Inhale 2 Malik formoteroL 8-26 airway puff by [facility] (SYMBICORT) 00:00: disease, mouth 2 80-4.5 00 mild time a mcg/actuati intermitten day. Rinse on inhaler t, mouth uncomplicat after each ed use. albuterol Yes Reactive 2{puff} Inhale 2 Malik 90 8-26 airway Puffs by [facility] mcg/actuati 00:00: disease, mouth 4 on inhaler 00 mild times intermitten daily as t, needed for uncomplicat Wheezing ed nitroGLYCER Yes Ischemic Dissolve 1 Malik IN 04-23 heart tablet Health (NITROSTAT) 00:00: disease under the 0.4 mg 00 tongue sublingual every 5 tablet minutes as needed, up to 3 times. If chest pain persists, call 911 HYDROcodone Yes Ovarian 1{tbl} Take 1 [facility] -acetaminop 8-26 mass tablet by [facility] hen (NORCO) 00:00: mouth 5-325 mg 00 every 6 tablet hours as needed for Pain (severe pain) ondansetron Yes Endometrial 8mg Take 1 Malik (ZOFRAN) 8 8-26 cancer tablet by alth mg tablet 00:00: mouth 00 every 8 hours on Day 2 - 4, then every 8 hours as needed for nausea/vom iting traMADoL Yes [facility]26 associated tablet by [facility] mg tablet 00:00: pain mouth 00 every 6 hours as needed for Pain INSULIN Yes Diabetes Q.5D Use to [facility] is SYRINGE 0.5 8-26 mellitus inject He alth mL 00:00: without medication 30GX5/16" 00 complicatio 2 times syringe-nee n daily. Use dle a new syringe each time. insulin Yes Diabetes Sliding Alberto ris lispro 8-26 mellitus scale if Healt h (HUMALOG 00:00: without glucose U-100 00 complicatio 201-250 INSULIN) n inject 3 100 unit/mL Units injection under the skin; If 251-300 inject 6 Units; If 301-350 inject 9 Units. Check blood sugar 30 minutes before meals. metFORMIN Yes Uncontrolle 850mg Q.5D Take 1 Malik (GLUCOPHAGE - d type 2 tablet by [facility] ) 850 mg 00:00: diabetes mouth 2 tablet 00 mellitus times with daily with hyperglycem meals ia metoprolol Yes Primary 25mg QD Take 1 Alonzo rris succinate 04-23 hypertensio tablet by [facility] (TOPROL XL) 00:00: n mouth 25 mg 00 daily extended release tablet blood Yes Diabetes Use as Malik glucose 04-23 mellitus directed [facility] meter kit 00:00: without to check 00 complicatio blood n glucose blood Yes Diabetes 1{each} Use 4 Joe is glucose 04-23 mellitus times [facility] test strips 00:00: without daily . 00 complicatio n lancets 28 Yes Diabetes 1{each} Use 4 Malik gauge 04-23 mellitus times Health 00:00: without daily . 00 complicatio n atorvastati Yes Diabetes 80mg Take 2 Malik n (LIPITOR) 04-23 mellitus tablets by [facility] 40 mg 00:00: without mouth at tablet 00 complicatio bedtime n nightly insulin Yes Uncontrolle 80U Q.5D Inject 80 Malik detemir 04-23 d type 2 Units [facility] U-100 00:00: diabetes under the (LEVEMIR [...] 2 Malik formoteroL 04-23 airway puff by [facility] (SYMBICORT) 00:00: disease, mouth 2 80-4.5 00 mild time a mcg/actuati intermitten day. Rinse on inhaler t, mouth uncomplicat after each ed use. albuterol Yes Reactive 2{puff} Inhale 2 Malik 90 04-23 airway Puffs by [facility] mcg/actuati 00:00: disease, mouth 4 on inhaler 00 mild times intermitten daily as t, needed for uncomplicat Wheezing ed nitroGLYCER Yes Ischemic Dissolve 1 Malik IN 04-23 heart tablet [facility] (NITROSTAT) 00:00: disease under the 0.4 mg 00 tongue sublingual every 5 tablet minutes as needed, up to 3 times. If chest pain persists, call 911 ondansetron Yes Endometrial 8mg Take 1 [facility] (ZOFRAN) 8 04-23 cancer tablet by alth mg tablet 00:00: mouth 00 every 8 hours on Day 2 - 4, then every 8 hours as needed for nausea/vom iting INSULIN Yes Diabetes Q.5D Use to [facility] is SYRINGE 0.5 04-23 mellitus inject He [...] (GLUCOPHAGE 04-23 d type 2 tablet by [facility] ) 850 mg 00:00: diabetes mouth 2 tablet 00 mellitus times with daily with hyperglycem meals ia metoprolol Yes Primary 25mg QD Take 1 Alonzo rris succinate 04-23 hypertensio tablet by [facility] (TOPROL XL) 00:00: n mouth 25 mg 00 daily extended release tablet blood Yes Diabetes Use as Malik glucose 04-23 mellitus directed Heal meter kit 00:00: without to check 00 complicatio blood n glucose blood Yes Diabetes 1{each} Use 4 Joe is glucose 04-23 mellitus times [facility] test strips 00:00: without daily . 00 complicatio n lancets 28 Yes Diabetes 1{each} Use 4 Malik gauge 04-23 mellitus times Health 00:00: without daily . 00 complicatio n atorvastati Yes Diabetes 80mg Take 2 Malik n (LIPITOR) 04-23 mellitus tablets by [facility] 40 mg 00:00: without mouth at tablet 00 complicatio bedtime n nightly insulin Yes Uncontrolle 80U Q.5D Inject 80 Malik detemir 04-23 d type 2 Units [facility] U-100 00:00: diabetes under the (LEVEMIR 00 mellitus skin 2 U-100 with times INSULIN) hyperglycem daily 100 unit/mL ia injection lidocaine Yes sciatica 1{patch QD Apply 1 Malik (LIDODERM) 04-23 [facility] skin as 00 directed daily Leave patch(es) on for up to 12 hours, then 12 hours off. budesonide- Yes Reactive 2{puff} Q.5D Inhale 2 Malik formoteroL 04-23 airway puff by [facility] (SYMBICORT) 00:00: disease, mouth 2 80-4.5 00 mild time a mcg/actuati intermitten day. Rinse on inhaler t, mouth uncomplicat after each ed use. albuterol Yes Reactive 2{puff} Inhale 2 [facility] 90 04-23 airway Puffs by [facility] mcg/actuati 00:00: disease, mouth 4 on inhaler 00 mild times intermitten daily as t, needed for uncomplicat Wheezing ed nitroGLYCER Yes Ischemic Dissolve 1 Malik IN 04-23 heart tablet [facility] (NITROSTAT) 00:00: disease under the 0.4 [...] iting INSULIN Yes Diabetes Q.5D Use to [facility] is SYRINGE 0.5 04-23 mellitus inject He [...] Uncontrolle 850mg Q.5D Take 1 Malik (GLUCOPHAGE 8- d type 2 tablet by [facility] ) 850 mg 00:00: diabetes mouth 2 tablet 00 mellitus times with daily with hyperglycem meals ia metoprolol Yes Primary 25mg QD Take 1 Alonzo rris succinate 04-23 hypertensio tablet by [facility] (TOPROL XL) 00:00: n mouth 25 mg 00 daily extended release tablet blood Yes Diabetes Use as Malik glucose 04-23 mellitus directed [facility] meter kit 00:00: without to check 00 complicatio blood n glucose blood Yes Diabetes 1{each} Use 4 Joe is glucose 04-23 mellitus times [facility] test strips 00:00: without daily . 00 complicatio n lancets 28 Yes Diabetes 1{each} Use 4 Malik gauge 8- mellitus times Health 00:00: without daily . 00 complicatio n atorvastati Yes Diabetes 80mg Take 2 Malik n (LIPITOR) 04-23 mellitus tablets by [facility] 40 mg 00:00: without mouth at tablet 00 complicatio bedtime n nightly insulin 0 Yes Uncontrolle 80U Q.5D Inject 80 Malik detemir 8 d type 2 Units Health U-100 00:00: diabetes under the (LEVEMIR 00 mellitus skin 2 U-100 with times INSULIN) hyperglycem daily 100 unit/mL ia injection lidocaine Yes sciatica 1{patch QD Apply 1 Malik (LIDODERM) 04-23 } [facility] skin as 00 directed daily Leave patch(es) on for up to 12 hours, then 12 hours off. budesonide- Yes Reactive 2{puff} Q.5D Inhale 2 Malik formoteroL 04-23 airway puff by [facility] (SYMBICORT) 00:00: disease, mouth 2 80-4.5 00 mild time a mcg/actuati intermitten day. Rinse on inhaler t, mouth uncomplicat after each ed use. albuterol Yes Reactive 2{puff} Inhale 2 Malik 90 04-23 airway Puffs by Health mcg/actuati 00:00: disease, mouth 4 on inhaler 00 mild times intermitten daily as t, needed for uncomplicat Wheezing ed nitroGLYCER Yes Ischemic Dissolve 1 Malik IN 04-23 heart tablet Health (NITROSTAT) 00:00: disease under the 0.4 mg [...] -acetaminop 04-23 mass tablet by [facility] (NORNuFlick) 00:00: 00:00 mouth 5-325 mg 00 :00 every 6 tablet hours as needed for Pain (severe pain) traMADoL 2021- No Cancer 50mg Take 1 Joe is (ULTRAM) 50 04-23 associated tablet by [facility] mg tablet 00:00: 00:00 pain mouth 00 :00 every 6 hours as needed for Pain gabapentin 2021- No Neuropathy 400mg Take 1 Malik (NEURONTIN) 04-23 capsule by H [facility]alth 400 mg 00:00: 00:00 mouth 3 capsule 00 :00 times daily HYDROcodone 2021- No Ovarian 1{tbl} Take 1 Malik -acetaminop 04-23 mass tablet by [facility] ([facility]ammer) 00:00: 00:00 mouth 5-325 mg 00 :00 every 6 tablet hours as needed for Pain (severe pain) traMADoL 2021- No Cancer 50mg Take 1 Joe is (ULTRAM) 50 04-23 associated tablet by Health mg tablet 00:00: 00:00 pain mouth 00 :00 every 6 hours as needed for Pain gabapentin 2021- No Neuropathy 400mg Take 1 Malik (NEURONTIN) 04-23 capsule by H [facility]alth 400 mg 00:00: 00:00 mouth 3 capsule 00 :00 times daily HYDROcodone 2021- No Ovarian 1{tbl} Take 1 Malik -acetaminop 04-23 mass tablet by [facility] (Yammer) 00:00: 00:00 mouth 5-325 mg 00 :00 every 6 tablet hours as needed for Pain (severe pain) traMADoL 2021- Cancer 50mg Take 1 Joe is (ULTRAM) 50 04-23 associated tablet by Health mg tablet 00:00: 00:00 pain mouth 00 :00 every 6 hours as needed for Pain gabapentin 2021- No Neuropathy 400mg Take 1 Malik (NEURONTIN) 04-23 capsule by [facility]alth 400 mg 00:00: 00:00 mouth 3 capsule 00 :00 times daily HYDROcodone 2021- No Ovarian 1{tbl} Take 1 Malik -acetaminop 04-23 mass tablet by [facility] (Yammer) 00:00: 00:00 mouth 5-325 mg 00 :00 every 6 tablet hours as needed for Pain (severe pain) traMADoL 2021- No Cancer 50mg Take 1 Joe [...] 8 hours as needed for nausea/vom iting albuterol 2021- No Reactive 2{puff} Inhale 2 [facility] 90 04-14 airway Puffs by Health mcg/actuati 00:00: 00:00 disease, mouth 4 on inhaler 00 :00 mild times intermitten daily as t, needed for uncomplicat Wheezing ed nitroGLYCER 2021- No Ischemic Dissolve 1 [facility] IN 04-14 heart tablet [facility] (NITROSTAT) 00:00: 00:00 disease under the 0.4 mg 00 :00 tongue sublingual every 5 tablet minutes as needed, up to 3 times. If chest pain persists, call 911 budesonide- 2021- No Reactive 2{puff} Q.5D Inhale 2 King formoteroL 04-14 airway Puffs by He alth (SYMBICORT) 00:00: 00:00 disease, mouth 2 80-4.5 00 :00 mild times mcg/actuati intermitten daily on inhaler t, Inhale 2 uncomplicat puff by ed mouth 2 time a day. Rinse mouth after each use. albuterol 2021- No Reactive 2{puff} Inhale 2 Malik Harjit 04-14 airway Puffs by Health mcg/actuati 00:00: 00:00 disease, mouth 4 on inhaler 00 :00 mild times intermitten daily as t, needed for uncomplicat Wheezing ed nitroGLYCER 2021- No Ischemic Dissolve 1 King IN 04-14 heart [facility] (NITROSTAT) 00:00: 00:00 disease under the 0.4 mg 00 :00 tongue sublingual every 5 tablet minutes as needed, up to 3 times. If chest pain persists, call 911 budesonide- 2021- No Reactive 2{puff} Q.5D Inhale 2 Malik formoteroL 04-14 airway Puffs by [facility] (SYMBICORT) 00:00: 00:00 disease, mouth 2 80-4.5 00 :00 mild times mcg/actuati intermitten daily on inhaler t, Inhale 2 uncomplicat puff by ed mouth 2 time a day. Rinse mouth after each use. albuterol 2021- No Reactive 2{puff} Inhale 2 [facility] 90 04-14 airway Puffs by Health mcg/actuati 00:00: 00:00 disease, mouth 4 on inhaler 00 :00 mild times intermitten daily as t, needed for uncomplicat Wheezing ed nitroGLYCER 2021- No Ischemic Dissolve 1 King IN 04-14 [facility] (NITROSTAT) 00:00: 00:00 disease under the 0.4 mg 00 :00 tongue sublingual every 5 tablet minutes as needed, up to 3 times. If chest pain persists, call 911 budesonide- 2021- No Reactive 2{puff} Q.5D Inhale 2 Malik formoteroL 04-14 airway Puffs by [facility] (SYMBICORT) 00:00: 00:00 disease, mouth 2 80-4.5 00 :00 mild times mcg/actuati intermitten daily on inhaler t, Inhale 2 uncomplicat puff by ed mouth 2 time a day. Rinse mouth after each use. albuterol 2021- No Reactive 2{puff} Inhale 2 [place] [id number] 04-14 airway Puffs by Health mcg/actuati 00:00: 00:00 disease, mouth 4 on inhaler 00 :00 mild times intermitten daily as t, needed for uncomplicat Wheezing ed nitroGLYCER 2021- No Ischemic Dissolve 1 [place] IN 04-14 [facility] (NITROSTAT) 00:00: 00:00 disease under the 0.4 mg 00 :00 tongue sublingual every 5 tablet minutes as needed, up to 3 times. If chest pain persists, call 911 budesonide- 2021- No Reactive 2{puff} Q.5D Inhale 2 [facility] formoteroL 04-14 airway Puffs by [facility] (SYMBICORT) 00:00: 00:00 disease, mouth 2 80-4.5 00 :00 mild times mcg/actuati intermitten daily on inhaler t, Inhale 2 uncomplicat puff by ed mouth 2 time a day. Rinse mouth after each use. albuterol 2021- No Reactive 2{puff} Inhale 2 [place] [id number] 04-14 airway Puffs by Health mcg/actuati 00:00: 00:00 disease, mouth 4 on inhaler 00 :00 mild times intermitten daily as t, needed for uncomplicat Wheezing ed nitroGLYCER 2021- No Ischemic Dissolve 1 Malik IN 04-14 heart tablet Health (NITROSTAT) 00:00: 00:00 disease under the 0.4 mg 00 :00 tongue sublingual every 5 tablet minutes as needed, up to 3 times. If chest pain persists, call 911 budesonide- 2021- No Reactive 2{puff} Q.5D Inhale 2 Malik formoteroL 04-14 airway Puffs by [facility] (SYMBICORT) 00:00: 00:00 disease, mouth 2 80-4.5 00 :00 mild times mcg/actuati intermitten daily on inhaler t, Inhale 2 uncomplicat puff by ed mouth 2 time a day. Rinse mouth after each use. albuterol 2021- No Reactive 2{puff} Inhale 2 [place] [id number] 04-14- airway Puffs by [facility] mcg/actuati 00:00: 00:00 disease, mouth 4 on inhaler 00 :00 mild times intermitten daily as t, needed for uncomplicat Wheezing ed albuterol 2021- No Reactive 2{puff} Inhale 2 [place] [id number] 04-14 08-17 airway Puffs by [facility] mcg/actuati 00:00: 00:00 disease, mouth 4 on inhaler 00 :00 mild times intermitten daily as t, needed for uncomplicat Wheezing ed albuterol 2021- No Reactive 2{puff} Inhale 2 [place] [address] 04-14 08-17 airway Puffs by [facility] mcg/actuati 00:00: 00:00 disease, mouth 4 on inhaler 00 :00 mild times intermitten daily as t, needed for uncomplicat Wheezing ed albuterol 2021- No Reactive 2{puff} Inhale 2 [place] [id number] 04-14 08-17 airway Puffs by Health mcg/actuati 00:00: 00:00 disease, mouth 4 on inhaler 00 :00 mild times intermitten daily as t, needed for uncomplicat Wheezing ed albuterol 2021- No Reactive 2{puff} Inhale 2 [place] [address] 04-14 08-17 airway Puffs by [facility] mcg/actuati 00:00: 00:00 disease, mouth 4 on inhaler 00 :00 mild times intermitten daily as t, needed for uncomplicat Wheezing ed tropicamide 2022- Yes Encounter 1[drp] Administer Malik [...] 00 :00 topical paste 1 Vial silver 2021-2021- No Thickened 1{stick Alonzo rris nitrate 04-09- endometrium } Heal applicators 13:45: 01:44 (SILVER 00 :00 NITRATE) 75-25 % topical applicator 1 Stick ferric 2021-0 2021- No Thickened 1{vial} Alonzo rris subsulfate 04-09 endometrium H ealth ([facility]SEL[facility]) 13:45: 01:44 1.04 g/mL 00 :00 topical paste 1 Vial silver 2021- No Thickened 1{stick Alonzo rris nitrate 04-09- endometrium } Heal applicators 13:45: 01:44 (SILVER 00 :00 NITRATE) 75-25 % topical applicator 1 Stick ferric 2021-0 2021- No Thickened 1{vial} Alonzo rris subsulfate 04-09 endometrium H [facility] ([facility]SEL'S) 13:45: 01:44 1.04 g/mL 00 :00 topical paste 1 Vial silver 2021- No Thickened 1{stick Alonzo rris nitrate 04-09 endometrium } Heal applicators 13:45: 01:44 (SILVER 00 :00 NITRATE) 75-25 % topical applicator 1 Stick ferric 2021-0 2021- No Thickened 1{vial} Alonzo rris subsulfate 04-09- endometrium H ealth (MONSEL[facility]S) 13:45: 01:44 1.04 g/mL 00 :00 topical paste 1 Vial silver 2021- No Thickened 1{stick Alonzo rris nitrate 04-09- endometrium } Heal applicators 13:45: 01:44 (SILVER 00 :00 NITRATE) 75-25 % topical applicator 1 Stick gabapentin 2021- No Neuropathy 400mg Q.5D Take 1 Malik (NEURONTIN) 03-18 capsule by H [facility]alth 400 mg 00:00: 00:00 mouth 2 capsule 00 :00 (two) times a day HYDROcodone 2021- No Acute 1{tbl} Take 1 Malik -acetaminop 03-18 pelvic pain tablet by [facility] hen [place]too) 00:00: 12:07 mouth 5-325 mg 00 :26 every 8 tablet hours as needed for Pain gabapentin 2021-0 2022- No Neuropathy 400mg Q.5D Take 1 Malik (NEURONTIN) 03-18 capsule by [facility]alth 400 mg 00:00: 00:00 mouth 2 capsule 00 :00 (two) times a day HYDROcodone 2021-0 2021- No Acute 1{tbl} Take 1 Malik -acetaminop 03-18 pelvic pain tablet by [facility] hen [place]) 00:00: 12:07 mouth 5-325 mg 00 :26 every 8 tablet hours as needed for Pain gabapentin 2021-0 2022- No Neuropathy 400mg Q.5D Take 1 Malik (NEURONTIN) 03-18 capsule by [facility]alth 400 mg 00:00: 00:00 mouth 2 capsule 00 :00 (two) times a day HYDROcodone 2021-0 2021- No Acute 1{tbl} Take 1 Malik -acetaminop 03-18 pelvic pain tablet by [facility] hen [place]) 00:00: 12:07 mouth 5-325 mg 00 :26 every 8 tablet hours as needed for Pain gabapentin 2021-0 2- No Neuropathy 400mg Q.5D Take 1 [facility]ik (NEURONTIN) 03-18 capsule by [facility]alth 400 mg 00:00: 00:00 mouth 2 capsule 00 :00 (two) times a day HYDROcodone 2-0 2022- No Acute 1{tbl} Take 1 Malik -acetaminop 03-18 pelvic pain tablet by [facility] hen [place]) 00:00: 12:07 mouth 5-325 mg 00 :26 every 8 tablet hours as needed for Pain gabapentin 2-0 2022- No Neuropathy 400mg Q.5D Take 1 Malik (NEURONTIN) 03-18 capsule by [facility] 400 mg 00:00: 00:00 mouth 2 capsule 00 :00 (two) times a day HYDROcodone 2-0 2022- No Acute 1{tbl} Take 1 Malik -acetaminop 03-18 pelvic pain tablet by [facility] hen [place]) 00:00: 12:07 mouth 5-325 mg 00 :26 every 8 tablet hours as needed for Pain insulin 2021- No Diabetes Sliding Alonzo rris lispro 03-15 mellitus scale if [facility] (HUMALOG 00:00: 00:00 without glucose U-100 00 :00 complicatio 201-250 INSULIN) n inject 3 100 unit/mL Units injection under the skin; If 251-300 inject 6 Units; If 301-350 inject 9 Units. Check blood sugar 30 minutes before meals. insulin 2021- No Diabetes Sliding Alonzo rris lispro 03-15 mellitus scale if [facility] (HUMALOG 00:00: 00:00 without glucose U-100 00 :00 complicatio 201-250 INSULIN) n inject 3 100 unit/mL Units injection under the skin; If 251-300 inject 6 Units; If 301-350 inject 9 Units. Check blood sugar 30 minutes before meals. insulin 2021- No Diabetes Sliding Alonzo rris lispro 03-15 mellitus scale if [facility] (HUMALOG 00:00: 00:00 without glucose U-100 00 :00 complicatio 201-250 INSULIN) n inject 3 100 unit/mL Units injection under the skin; If 251-300 inject 6 Units; If 301-350 inject 9 Units. Check blood sugar 30 minutes before meals. insulin 2021- No Diabetes Sliding Alonzo rris lispro 03-15 mellitus scale if [facility] (HUMALOG 00:00: 00:00 without glucose U-100 00 :00 complicatio 201-250 INSULIN) n inject 3 100 unit/mL Units injection under the skin; If 251-300 inject 6 Units; If 301-350 inject 9 Units. Check blood sugar 30 minutes before meals. insulin 2021- No Diabetes Sliding Alonzo rris lispro 03-15 mellitus scale if [facility] (HUMALOG 00:00: 00:00 without glucose U-100 00 :00 complicatio 201-250 INSULIN) n inject 3 100 unit/mL Units injection under the skin; If 251-300 inject 6 Units; If 301-350 inject 9 Units. Check blood sugar 30 minutes before meals. lidocaine 2021- No sciatica 1{patch QD Apply 1 Malik (LIDODERM) 03-04 } Patch to [facility] 5 % patch 00:00: 00:00 skin as [...] 50 03-04 08-17 in female tablet by Health mg tablet 00:00: 00:00 mouth 00 :00 every 6 hours as needed for Pain FLUoxetine Yes Medication 60mg QD Take 3 Malik (PROZAC) 20 7- refill capsules He alth mg capsule 00:00: by mouth 00 daily. FLUoxetine Yes Medication 60mg QD Take 3 Malik (PROZAC) 20 7 refill capsules [facility] alth mg capsule 00:00: by mouth 00 daily. FLUoxetine Yes Medication 60mg QD Take 3 Malik (PROZAC) 20 7 refill capsules He alth mg capsule 00:00: by mouth 00 daily. FLUoxetine Yes Medication 60mg QD Take 3 Malik (PROZAC) 20 02-26 refill capsules He alth mg capsule 00:00: by mouth 00 daily. FLUoxetine Yes Medication 60mg QD Take 3 Malik (PROZAC) 20 7 refill capsules He alth mg capsule 00:00: [...] sugar 30 minutes before meals.. insulin 2021-0 202- No Diabetes Sliding Alonzo rris lispro 02-16 mellitus scale If [facility]al th (HUMALOG 00:00: 00:00 without glucose U-100 00 :00 complicatio >200<250 INSULIN) n inject 3 100 unit/mL Units If injection >250<300 inject 6 Units If >300<35 0 inject 9Units Check blood sugar 30 minutes before meals.. insulin Yes Inject [facility], 5-11 under the [facility], 11:52: skin 2 (HumuLIN 22 (two) N,NovoLIN times a N) 100 day before UNIT/ML meals. injection insulin 0 Yes Inject [facility], 5-11 under the [facility], 11:52: skin 2 (HumuLIN 22 (two) N,NovoLIN times a N) 100 day before UNIT/ML meals. injection insulin 0 Yes Inject [facility], 5-11 under the [facility], 11:52: skin 2 (HumuLIN 22 (two) N,NovoLIN times a N) 100 day before UNIT/ML meals. injection insulin 0 Yes Inject [facility], 5-11 under the [facility] IsopZuznowe, 11:52: skin 2 (HumuLIN 22 (two) N,NovoLIN times a N) 100 day before UNIT/ML meals. injection metFORMIN 2021-0 Yes 850mg Take 850 [facility] (Glucophage 5-11 mg by [facility] ) 850 MG 11:44: mouth 2 tablet 59 (two) times a day with meals. furosemide 2021-0 Yes 20mg QD Take 20 mg [facility] (Lasix) 20 5-11 by mouth 1 Hea lth MG tablet 11:44: (one) time 59 each day. gabapentin 2022-0 Yes 400mg Q.[id number] Take 400 [facility] (Neurontin) 5-11 [id number] mg by H ealth 400 MG 11:44: [...] 59 each day. gabapentin 2022-0 Yes 400mg Q.[id number] Take 400 [facility] (Neurontin) 5-11 [id number] mg by H [facility]alth 400 MG 11:44: [...] 59 each day. gabapentin 2022-0 Yes 400mg Q.[id number] Take 400 [facility] (Neurontin) 5-11 [id number] mg by [facility]alth 400 MG 11:44: [...] Take 20 mg [facility] (Lasix) 20 -11 by mouth 1 Hea l[facility] MG tablet 11:44: (one) time 59 each day. gabapentin Yes 400mg Q.[id number] Take 400 [facility] (Neurontin) 01-06 [id number] mg by H [facility]alth 400 MG 11:44: 3D mouth 3 capsule 59 (three) times a day. FLUoxetine Yes 40mg QD Take 40 mg [facility] (PROzac) 40 11 by mouth 1 He alth MG capsule 11:44: (one) time 59 each day. metoprolol 2021- No 25mg QD Take 25 mg Malik tartrate 12-1524 by mouth Health (LOPRESSOR) 00:00: 00:00 daily 25 mg 00 :00 tablet metoprolol 2021-2021- No 25mg QD Take 25 mg [facility]ik tartrate 12-15- by mouth [facility] (LOPRESSOR) 00:00: 00:00 daily 25 mg 00 :00 tablet metoprolol 2021-0 2021- No 25mg QD Take 25 mg Malik tartrate 12-15-24 by mouth [facility] (LOPRESSOR) 00:00: 00:00 daily 25 mg 00 :00 tablet metoprolol 2021-0 2021- No 25mg QD Take 25 mg Malik tartrate 12-15-24 by mouth [facility] (LOPRESSOR) 00:00: 00:00 daily 25 mg 00 :00 tablet metoprolol 2021-0 2- No 25mg QD Take 25 mg Malik tartrate 12-15-24 by mouth [facility] (LOPRESSOR) 00:00: 00:00 daily 25 mg 00 :00 tablet furosemide Yes Coronary 20mg QD Take 1 H [facility] (LASIX) 20 4-04 artery tablet by He alth mg tablet 00:00: disease mouth 00 involving daily [place] heart without angina pectoris, unspecified vessel or lesion type furosemide Yes Coronary 20mg QD Take 1 H [facility]is (LASIX) 20 4-04 artery tablet by He al[facility] mg tablet 00:00: disease mouth 00 involving daily [place] heart without angina pectoris, unspecified vessel or lesion type furosemide Yes Coronary 20mg QD Take 1 H [facility] (LASIX) 20 4-04 artery tablet by [facility] mg tablet 00:00: disease mouth 00 involving daily [place] heart without angina pectoris, unspecified vessel or lesion type furosemide Yes Coronary 20mg QD Take 1 H [facility] (LASIX) 20 4-04 artery tablet by [facility] mg tablet 00:00: disease mouth 00 involving daily [place] heart without angina pectoris, unspecified vessel or lesion type furosemide Yes Coronary 20mg QD Take 1 H [facility] (LASIX) 20 4-04 artery tablet by [facility] mg tablet 00:00: disease mouth 00 involving daily [place] heart without angina pectoris, unspecified vessel or lesion type metFORMIN 2021- No Uncontrolle 850mg Q.5D Take 1 [facility] (GLUCOPHAGE 11-30 d type 2 tablet by [facility] ) 850 mg 00:00: 00:00 diabetes mouth 2 tablet 00 :00 mellitus times with daily hyperglycem (with ia meals) metoprolol 2021- No Primary 25mg QD Take 1 H [facility] succinate 11-30 hypertensio tablet by [facility] (TOPROL XL) 00:00: 00:00 n mouth 25 mg 00 :00 daily extended release tablet metFORMIN 2021- No Uncontrolle 850mg Q.5D Take 1 [facility] (GLUCOPHAGE 11-30 d type 2 tablet by [facility] ) 850 mg 00:00: 00:00 diabetes mouth 2 tablet 00 :00 mellitus times with daily hyperglycem (with ia meals) metoprolol 2021- No Primary 25mg QD Take 1 H [facility] succinate 11-30 hypertensio tablet by [facility] (TOPROL XL) 00:00: 00:00 n mouth 25 mg 00 :00 daily extended release tablet metFORMIN 2021- No Uncontrolle 850mg Q.5D Take 1 [facility] (GLUCOPHAGE 11-30 d type 2 tablet by [facility] ) 850 mg 00:00: 00:00 diabetes mouth 2 tablet 00 :00 mellitus times with daily hyperglycem (with ia meals) metoprolol 2021- No Primary 25mg QD Take 1 H [facility] succinate 11-30 hypertensio tablet by [facility] (TOPROL XL) 00:00: 00:00 n mouth 25 mg 00 :00 daily extended release tablet metFORMIN 2021- No Uncontrolle 850mg Q.5D Take 1 [facility]ik (GLUCOPHAGE 11-30 d type 2 tablet by [facility] ) 850 mg 00:00: 00:00 diabetes mouth 2 tablet 00 :00 mellitus times with daily hyperglycem (with ia meals) metoprolol 2021- No Primary 25mg QD Take 1 H [facility] succinate 11-30 hypertensio tablet by [facility] (TOPROL XL) 00:00: 00:00 n mouth 25 mg 00 :00 daily extended release tablet metFORMIN 2021- No Uncontrolle 850mg Q.5D Take 1 [facility]ik (GLUCOPHAGE 11-30 d type 2 tablet by [facility] ) 850 mg 00:00: 00:00 diabetes mouth 2 tablet 00 :00 mellitus times with daily hyperglycem (with ia meals) metoprolol 2021- No Primary 25mg QD Take 1 H [facility]is succinate 11-30 hypertensio tablet by [facility] (TOPROL XL) 00:00: 00:00 n mouth 25 [...] 00 :00 (two) times a day aspirin 2021-0 Yes Coronary 81mg QD Chew and [facility] rris (ASPIRIN) 11-27 artery swallow 1 [facility] 81 mg 00:00: disease tablet by chewable 00 involving mouth tablet [place] daily heart without angina pectoris, unspecified vessel or lesion type aspirin Yes Coronary 81mg QD Chew and [facility] (ASPIRIN) 11-27 artery swallow 1 [facility] 81 mg 00:00: disease tablet by chewable 00 involving mouth tablet [place] daily heart without angina pectoris, unspecified vessel or lesion type aspirin Yes Coronary 81mg QD Chew and [facility] (ASPIRIN) 11-27 artery swallow 1 [facility] 81 mg 00:00: disease tablet by chewable 00 involving mouth tablet [place] daily heart without angina pectoris, unspecified vessel or lesion type aspirin Yes Coronary 81mg QD Chew and [facility] (ASPIRIN) 11-27 artery swallow 1 [facility] 81 mg 00:00: disease tablet by chewable 00 involving mouth tablet [place] daily heart without angina pectoris, unspecified vessel or lesion type aspirin Yes Coronary 81mg QD Chew and [facility] (ASPIRIN) 11-27 artery swallow 1 [facility] 81 mg 00:00: disease tablet by chewable 00 involving mouth tablet [place] daily heart without angina pectoris, unspecified vessel [...] Uncontrolle 850mg Q.5D Take 1 [facility] (GLUCOPHAGE 11-27 d type 2 tablet by [facility] ) 850 mg 00:00: 00:00 diabetes mouth 2 tablet 00 :00 mellitus times with daily hyperglycem (with ia meals) gabapentin 2021- No Neuropathy 400mg Q.5D Take 1 [facility] (NEURONTIN) 11-27 capsule by [facility] 400 mg 00:00: 00:00 mouth 2 capsule 00 :00 (two) times a day furosemide 2021- No Coronary 20mg QD Take 1 [facility] (LASIX) 20 11-27 artery tablet by [facility] mg tablet 00:00: 00:00 disease mouth 00 :00 involving daily [place] heart without angina pectoris, unspecified vessel or lesion type metoprolol 2021- No Primary 25mg QD Take 1 [facility] succinate 11-27 hypertensio tablet by [facility] (TOPROL XL) 00:00: 00:00 n mouth 25 mg 00 :00 daily extended release tablet metFORMIN 2021- No Uncontrolle 850mg Q.5D Take 1 [facility]ik (GLUCOPHAGE 11-27 d type 2 tablet by [facility] ) 850 mg 00:00: 00:00 diabetes mouth [...] 00:00 disease mouth 00 :00 involving daily [place] heart without angina pectoris, unspecified vessel or lesion type metoprolol 2021- No Primary 25mg QD Take 1 H [facility]is succinate 11-27 hypertensio tablet by [facility] (TOPROL XL) 00:00: 00:00 n mouth 25 mg 00 :00 daily extended release tablet metFORMIN 2021- No Uncontrolle 850mg Q.5D Take 1 [facility] (GLUCOPHAGE 11-27 d type 2 tablet by [facility] ) 850 mg 00:00: 00:00 diabetes mouth 2 tablet 00 :00 mellitus times with daily hyperglycem (with ia meals) gabapentin 2021- No Neuropathy 400mg Q.5D Take 1 [facility] (NEURONTIN) 11-27- capsule by [facility] 400 mg 00:00: 00:00 mouth 2 capsule 00 :00 (two) times a day furosemide 2021-2021- No Coronary 20mg QD Take 1 [facility] (LASIX) 20 11-27- artery tablet by [facility] mg tablet 00:00: 00:00 disease mouth 00 :00 involving daily [place] heart without angina pectoris, unspecified vessel or lesion type metoprolol 2021- No Primary 25mg QD Take 1 H [facility] succinate 11-27 hypertensio tablet by [facility] (TOPROL XL) 00:00: 00:00 n mouth 25 mg 00 :00 daily extended release tablet metFORMIN 2021-2021- No Uncontrolle 850mg Q.5D Take 1 Malik (GLUCOPHAGE 11-27 d type 2 tablet by [facility] ) 850 mg 00:00: 00:00 diabetes mouth [...] 00:00 disease mouth 00 :00 involving daily [place] heart without angina pectoris, unspecified vessel or lesion type metoprolol 2021-2021- No Primary 25mg QD Take 1 H [facility]is succinate 11-27 hypertensio tablet by [facility] (TOPROL XL) 00:00: 00:00 n mouth 25 mg 00 :00 daily extended release tablet metFORMIN 2021-2021- No Uncontrolle 850mg Q.5D Take 1 [facility]ik (GLUCOPHAGE 11-27 d type 2 tablet by [facility] ) 850 mg 00:00: 00:00 diabetes mouth [...] 00:00 disease mouth 00 :00 involving daily [place] heart without angina pectoris, unspecified vessel or lesion type metoprolol 2021-0 2021- No Primary 25mg QD Take 1 H [facility]is succinate 11-27 hypertensio tablet by [facility] (TOPROL XL) 00:00: 00:00 n mouth 25 [...] 30GX5/16") syringe syringe-nee each time. dle (FLUOCINONI 2019-08- No Sammie Apply [place]) 0.05 % 09-01 Kiko Pitt Twice a Communi CREA 00:00: 00:00 Day to ty 00 :00 affected Health areas for 10 days (HYDROXYZIN 2019-08 2020- No Sammie TAKE 1 TAB [facility] [...] mometasone 2015-08 Yes Seasonal 1{spray QD 1 [place] [facility] (NASONEX) 1-30 allergies } each [facility]alt [facility] 50 00:00: nostril mcg/actuati 00 route on nasal daily. spray mometasone 2015-08 Yes Seasonal 1{spray QD 1 [facility] (NASONEX) 1-30 allergies } each [facility]alt [facility] 50 00:00: nostril mcg/actuati 00 route on nasal daily. spray mometasone 2015-08 Yes Seasonal 1{spray QD 1 [facility] (NASONEX) 1-30 allergies } each Healt [facility] 50 00:00: nostril mcg/actuati 00 route on nasal daily. spray mometasone 2015-08 Yes Seasonal 1{spray QD 1 [place] by [facility] (NASONEX) 1-30 allergies } each Healt [facility] 50 00:00: nostril mcg/actuati 00 route on nasal daily. spray mometasone 2015-08 Yes Seasonal 1{spray QD 1 [facility] (NASONEX) 1-30 allergies } each Healt [facility] 50 00:00: nostril mcg/actuati 00 route on nasal daily. spray azithromyci 2015-08- No Acute URI Take 2 Malik n 09-26- tablets by [facility] (ZITHROMAX) 00:00: 00:00 mouth on 250 mg 00 :00 the first tablet day, then take one tablet every day for the next 4 days. cetirizine 2015-08- No Acute URI 10mg QD Take 1 [facility] (ZYRTEC) 10 09-26 tablet by alth mg tablet 00:00: 00:00 mouth 00 :00 daily. azithromyci 2015-08- No Acute URI Take 2 Malik n 09-26- tablets by [facility] (ZITHROMAX) 00:00: 00:00 mouth on 250 mg 00 :00 the first tablet day, then take one tablet every day for the next 4 days. cetirizine 2015-08- No Acute URI 10mg QD Take 1 [facility] (ZYRTEC) 10 09-26 tablet by alth mg tablet 00:00: 00:00 mouth 00 :00 daily. azithromyci 2015-08- No Acute URI Take 2 Malik n 09-26- tablets by [facility] (ZITHROMAX) 00:00: 00:00 mouth on 250 mg 00 :00 the first tablet day, then take one tablet every day for the next 4 days. cetirizine 2015-08- No Acute URI 10mg QD Take 1 [facility]ik (ZYRTEC) 10 09-26 tablet by alth mg tablet 00:00: 00:00 mouth 00 :00 daily. azithromyci 2015-08- No Acute URI Take 2 Malik n 09-26- tablets by [facility] (ZITHROMAX) 00:00: 00:00 mouth on 250 mg 00 :00 the first tablet day, then take one tablet every day for the next 4 days. cetirizine 2015-08- No Acute URI 10mg QD Take 1 [facility]ik (ZYRTEC) 10 09-26 tablet by alth mg tablet 00:00: 00:00 mouth 00 :00 daily. azithromyci 2015-08- No Acute URI Take 2 Malik n 09-26 tablets by [facility] (ZITHROMAX) 00:00: 00:00 mouth on 250 [...] i PENTIPS 00:00: daily ty (INSULIN 00 [facility] PEN NEEDLE) 31G X 5 MM [...] No Tobacco use Take 2 Malik n 9-29 08-26 disorder tablets by [facility] (ZITHROMAX) 00:00: 00:00 mouth on 250 mg 00 :00 the first tablet day, then take one tablet every day for the next 4 days. azithromyci 2021- No Tobacco use Take 2 Malik n 9-29 08-26 disorder tablets by [facility] (ZITHROMAX) 00:00: 00:00 mouth on 250 mg 00 :00 the first tablet day, then take one tablet every day for the next 4 days. azithromyci 2021- No Tobacco use Take 2 Malik n 9-29 08-26 disorder tablets by [facility] (ZITHROMAX) 00:00: 00:00 mouth on 250 mg 00 :00 the first tablet day, then take one tablet every day for the next 4 days. azithromyci 2021- No Tobacco use Take 2 Malik n 9-29 08-26 disorder tablets by [facility] (ZITHROMAX) 00:00: 00:00 mouth on 250 mg 00 :00 the first tablet day, then take one tablet every day for the next 4 days. azithromyci 2021- No Tobacco use Take 2 Malik n 9-29 08-26 disorder tablets by [facility] (ZITHROMAX) 00:00: 00:00 mouth on 250 mg 00 :00 the first tablet day, then take one tablet every day for the next 4 days. budesonide- 2021- No Reactive 2{puff} Q.5D Inhale 2 Malik formoterol 04-27-16 airway Puffs by Swap[facility] al[facility] (SYMBICORT) 00:00: 00:00 disease, mouth 2 80-4.5 00 :00 mild times mcg/actuati intermitten daily on inhaler t, Inhale 2 uncomplicat puff by ed mouth 2 time a day. Rinse mouth after each use.. budesonide- 2021- No Reactive 2{puff} Q.5D Inhale 2 Malik formoterol 04-27-16 airway Puffs by Sw[facility] (SYMBICORT) 00:00: [...] rris SYRINGE 1mL 7-12 refill inject [facility]al 30GX5/16" 00:00: medication syringe-nee 00 3 times dle daily. Use a new syringe each time.. blood Yes Medication Check Harri s glucose 7-12 refill sugars 3 Health test strips 00:00: times a 00 day. INSULIN 0 Yes Medication Use to Alonzo rris SYRINGE 1mL 7-12 refill inject Heal 30GX5/16" 00:00: medication syringe-nee 00 3 times dle daily. Use a new syringe each time.. blood Yes Medication Check Harri s glucose 7-12 refill sugars 3 Health test strips 00:00: times a 00 day. INSULIN 0 Yes Medication Use to Alonzo rris SYRINGE 1mL 7-12 refill inject Heal 30GX5/16" 00:00: medication syringe-nee 00 3 times dle daily. Use a new syringe each time.. blood Yes Medication Check Harri s glucose 7-12 refill sugars 3 Health test strips 00:00: times a 00 day. INSULIN 2015-0 Yes Medication Use to Alonzo rris SYRINGE 1mL 7-12 refill inject Heal 30GX5/16" 00:00: medication syringe-nee 00 3 times dle daily. Use a new syringe each time.. blood Yes Medication Check Harri s glucose 7-12 refill sugars 3 Health test strips 00:00: times a 00 day. INSULIN 2015-0 Yes Medication Use to Alonzo rris SYRINGE 1mL 7-12 refill inject [facility] 30GX5/16" 00:00: medication syringe-nee 00 3 [...] Malik n (LIPITOR) 03-09 refill tablet by [facility] 40 mg 00:00: 00:00 mouth at tablet [...] 1 Malik (GLUCOPHAGE 03-09 refill tablet by [facility] ) 850 mg 00:00: 00:00 mouth 2 tablet 00 :00 times daily (with meals). metoprolol 2021- No Medication 12.5mg Q.5D Take 1/2 ( Malik tartrate 03-09 refill 0.5) [facility] (LOPRESSOR) 00:00: 00:00 tablets by 25 mg 00 :00 mouth 2 tablet times daily. gabapentin 2021- No Medication 300mg Take 1 Malik (NEURONTIN) 03-09 refill capsule by [facility] 300 mg 00:00: 00:00 mouth 3 capsule [...] 1 Malik (GLUCOPHAGE 03-09 refill tablet by [facility] ) 850 mg 00:00: 00:00 mouth 2 tablet 00 :00 times daily (with meals). metoprolol 2021- No Medication 12.5mg Q.5D Take 1/2 ( Malik tartrate 03-09 refill 0.5) Health (LOPRESSOR) 00:00: 00:00 tablets by 25 mg 00 :00 mouth 2 tablet times daily. gabapentin 2021- No Medication 300mg Take 1 Malik (NEURONTIN) 03-09 refill capsule by [facility] 300 mg 00:00: 00:00 mouth 3 capsule 00 :00 times daily. metFORMIN 2021- No Medication 850mg Q.5D Take 1 Malik (GLUCOPHAGE 03-09 refill tablet by [facility] ) 850 mg 00:00: 00:00 mouth 2 [...] 1 Malik (GLUCOPHAGE 03-09 refill tablet by [facility] ) 850 mg 00:00: 00:00 mouth 2 [...] Alonzo rris lispro 01-22 mellitus scale If [facility] (HUMALOG) 00:00: 00:00 without glucose 100 unit/mL [...] Alonzo rris lispro 01-22 mellitus scale If [facility] (HUMALOG) 00:00: 00:00 without glucose 100 unit/mL 00 :00 complicatio >200<250 injection n inject 3 Units If >250<300 inject 6 Units If >300<35 0 inject 9Units Check blood sugar 30 minutes before meals.. insulin 2021- No Diabetes Sliding Alonzo rris lispro 01-22 mellitus scale If [facility] (HUMALOG) 00:00: 00:00 without glucose 100 unit/mL 00 :00 complicatio >200<250 injection n inject 3 Units If >250<300 inject 6 Units If >300<35 0 inject 9Units Check blood sugar 30 minutes before meals.. insulin 2021- No Diabetes Sliding Alonzo rris lispro 5-27 06-21 mellitus scale If [facility] (HUMALOG) 00:00: 00:00 without glucose 100 unit/mL 00 :00 complicatio >200<250 injection n inject 3 Units If >250<300 inject 6 Units If >300<35 0 inject 9Units Check blood sugar 30 minutes before meals.. ergocalcife Yes Diabetes 34013Q Take 1 Malik rol 4-27 mellitus capsule by [facility]alt [facility] (VITAMIN 00:00: due to mouth D2) 50,000 00 underlying weekly. unit condition capsule with diabetic nephropathy ergocalcife Yes Diabetes 11380H Take 1 Malik rol 4-27 mellitus capsule by [facility]alt [facility] (VITAMIN 00:00: due to mouth D2) 50,000 00 underlying weekly. unit condition capsule with diabetic nephropathy ergocalcife Yes Diabetes 61304Q Take 1 [facility]ik rol 4-27 mellitus capsule by [facility]alt [facility] (VITAMIN 00:00: due to mouth D2) 50,000 00 underlying weekly. unit condition capsule with diabetic nephropathy ergocalcife Yes Diabetes 75201J Take 1 [facility]ik rol 4-27 mellitus capsule by [facility]alt [facility] (VITAMIN 00:00: due to mouth D2) 50,000 00 underlying weekly. unit condition capsule with diabetic nephropathy ergocalcife Yes Diabetes 30689Q Take 1 [facility]ik rol 4-27 mellitus capsule by [facility]alt [facility] (VITAMIN 00:00: due to mouth D2) 50,000 00 underlying weekly. unit condition capsule with diabetic nephropathy gabapentin 2021- No Hip pain 300mg Q.5D Take 1 Malik (NEURONTIN) 11-22 capsule by [facility] 300 mg 00:00: 00:00 mouth 2 capsule 00 :00 times daily. gabapentin 2021- No Hip pain 300mg Q.5D Take 1 [facility]ik (NEURONTIN) 11-22 capsule by [facility] 300 mg 00:00: 00:00 mouth 2 capsule 00 :00 times daily. gabapentin 2021- No Hip pain 300mg Q.5D Take 1 [facility]ik (NEURONTIN) 11-22 capsule by [facility] 300 mg 00:00: 00:00 mouth 2 capsule 00 :00 times daily. gabapentin 2021- No Hip pain 300mg Q.5D Take 1 [facility]ik (NEURONTIN) 11-22 capsule by [facility] 300 mg 00:00: 00:00 mouth 2 capsule 00 :00 times daily. gabapentin 2021- No Hip pain 300mg Q.5D Take 1 [facility] (NEURONTIN) 11-22 capsule by [facility] 300 mg 00:00: [...] 00 :00 daily.comp lidocaine ound at mucosal :[facility] mL nystatin oral suspension oral [...] 00 :00 daily.comp lidocaine ound at mucosal :[facility]-1 Pharmacy mL nystatin oral suspension oral [...] 00 :00 daily.comp lidocaine ound at mucosal :[facility]-1 Pharmacy mL nystatin oral suspension oral [...] 00 :00 daily.comp lidocaine ound at mucosal :[facility]-1 Pharmacy mL nystatin oral suspension oral [...] ml Malik diphenhydrA 04-23 by mouth [facility] MINE 00:00: 00:00 twice syrup-1 mL 00 :00 daily.comp lidocaine ound at mucosal :[facility]-1 Pharmacy mL nystatin oral suspension oral suspension- CMPD ibuprofen 2021- No Acute 800mg Take 1 [facility]to ris (MOTRIN) 10-25- tonsillitis tablet by [facility] 800 mg 00:00: 00:00 , mouth tablet 00 :00 unspecified every 8 etiology hours as needed for Pain. ibuprofen 2021- No Acute 800mg Take 1 [facility] ris (MOTRIN) 10-25- tonsillitis tablet by [facility] 800 mg 00:00: 00:00 , mouth tablet 00 :00 unspecified every 8 etiology hours as needed for Pain. ibuprofen 2021- No Acute 800mg Take 1 Alberto ris (MOTRIN) 10-25- tonsillitis tablet by [facility] 800 mg 00:00: 00:00 , mouth tablet 00 :00 unspecified every 8 etiology hours as needed for Pain. ibuprofen 2021- No Acute 800mg Take 1 Alberto ris (MOTRIN) 10-25- tonsillitis tablet by [facility] 800 mg 00:00: 00:00 , mouth tablet 00 :00 unspecified every 8 etiology hours as needed for Pain. ibuprofen No Acute 800mg Take 1 Alberto ris (MOTRIN) 2-27 08-26 tonsillitis tablet by [facility] 800 mg 00:00: [...] 2014-08- No Ischemic Dissolve 1 [facility]ik IN 1-19 08-16 heart tablet Health (NITROSTAT) 00:00: 00:00 disease under the 0.4 mg 00 :00 tongue sublingual every 5 tablet minutes as needed, up to 3 times. If chest pain persists, call 911. albuterol 2014-08- No Reactive 2{puff} Inhale 2 Malik (VENTOLIN 09-16 airway Puffs by [facility] HFA,PROVENT 00:00: 00:00 disease, mouth 4 IL 00 :00 mild times HFA,PROAIR intermitten daily as HFA) 90 t, needed for mcg/actuati uncomplicat Wheezing. on inhaler ed nitroGLYCER 2014-08- No Ischemic Dissolve 1 [facility]ik IN 09-16 [facility] (NITROSTAT) 00:00: 00:00 disease under the 0.4 mg 00 :00 tongue sublingual every 5 tablet minutes as needed, up to 3 times. If chest pain persists, call 911. albuterol 2014-08- No Reactive 2{puff} Inhale 2 [facility]ik (VENTOLIN 09-16 airway Puffs by [facility] HFA,PROVENT 00:00: 00:00 disease, mouth 4 IL 00 :00 mild times HFA,PROAIR intermitten daily as HFA) 90 t, needed for mcg/actuati uncomplicat Wheezing. on inhaler ed nitroGLYCER 2014-08- No Ischemic Dissolve 1 [facility] IN 09-16 [facility] (NITROSTAT) 00:00: 00:00 disease under the 0.4 mg 00 :00 tongue sublingual every 5 tablet minutes as needed, up to 3 times. If chest pain persists, call 911. albuterol 2014-08- No Reactive 2{puff} Inhale 2 [facility] (VENTOLIN 09-16 airway Puffs by [facility] HFA,PROVENT 00:00: 00:00 disease, mouth 4 [place] 00 :00 mild times HFA,PROAIR intermitten daily as HFA) 90 t, needed for mcg/actuati uncomplicat Wheezing. on inhaler ed nitroGLYCER 2014-08- No Ischemic Dissolve 1 [facility]ik IN 09-16 heart [facility] (NITROSTAT) 00:00: 00:00 disease under the 0.4 mg 00 :00 tongue sublingual every 5 tablet minutes as needed, up to 3 times. If chest pain persists, call 911. albuterol 2014-08- No Reactive 2{puff} Inhale 2 [facility]ik (VENTOLIN 09-16 airway Puffs by [facility] HFA,PROVENT 00:00: 00:00 disease, mouth 4 [...] (VENTOLIN 09-16 airway Puffs by [facility] HFA,PROVENT 00:00: 00:00 disease, mouth 4 IL 00 :00 mild times HFA,PROAIR intermitten daily as HFA) 90 t, needed for mcg/actuati uncomplicat Wheezing. on inhaler ed aspirin 2014-08- No Essential 81mg QD Chew and [facility] (ASPIRIN) 09-16 hypertensio swallow 1 Health 81 mg 00:00: 00:00 n, benign tablet by chewable 00 :00 mouth tablet daily. aspirin 2014-08- No Essential 81mg QD Chew and [facility] (ASPIRIN) 09-16 hypertensio swallow 1 [facility] 81 mg 00:00: 00:00 n, benign tablet by chewable 00 :00 mouth tablet daily. aspirin 2014-08- No Essential 81mg QD Chew and [facility] (ASPIRIN) 09-16 hypertensio swallow 1 [facility] 81 mg 00:00: 00:00 n, benign tablet by chewable 00 :00 mouth tablet daily. aspirin 2014-08- No Essential 81mg QD Chew and [facility] (ASPIRIN) 09-16 hypertensio swallow 1 [facility] 81 mg 00:00: 00:00 n, benign tablet by chewable 00 :00 mouth tablet daily. aspirin 2014-08- No Essential 81mg QD Chew and [facility] (ASPIRIN) 09-16 hypertensio swallow 1 [facility] 81 mg 00:00: 00:00 n, benign tablet by chewable 00 :00 mouth tablet daily. loratadine 2014-08 Yes Acute 10mg QD Take 1 [facility] is (CLARITIN) 0-13 bronchitis tablet by Health [...] ris (CLARITIN) 0-12 08-26 allergic tablet by Health 10 mg 00:00: [...] Alberto ris (CLARITIN) 004-23 allergic tablet by [facility] 10 mg 00:00: 00:00 rhinitis mouth tablet 00 :00 daily Take 1 tablet by mouth once a day.. loratadine 2014-08- No Other 10mg QD Take 1 Alberto ris (CLARITIN) 004-23 allergic tablet by [facility] 10 mg 00:00: 00:00 rhinitis mouth tablet 00 :00 daily Take 1 tablet by mouth once a day.. triamcinolo Yes Type II or Q.5D Apply to [facility] 05-27 unspecified affected [facility]) 00:00: type area 2 0.025 % 00 diabetes times topical mellitus daily. cream without mention of complicatio n, not stated as uncontrolle d triamcinolo Yes Type II or Q.5D Apply to [facility] 05-27 unspecified affected Heal ([facility]) 00:00: type area 2 0.025 % 00 diabetes times topical mellitus daily. cream without mention of complicatio n, not stated as uncontrolle d triamcinolo Yes Type II or Q.5D Apply to [facility] 05-27 unspecified affected Heal ([facility]) 00:00: type area 2 0.025 % 00 diabetes times topical mellitus daily. cream without mention of complicatio n, not stated as uncontrolle d triamcinolo Yes Type II or Q.5D Apply to [facility] 05-27 unspecified affected Heal ([facility]) 00:00: type area 2 0.025 % 00 diabetes times topical mellitus daily. cream without mention of complicatio n, not stated as uncontrolle d triamcinolo Yes Type II or Q.5D Apply to [facility] ne 05-27 unspecified affected Heal th ([place]) [...] hydrocortis Yes Contact Q.5D Apply to [facility] one 2.5 % 03-05 dermatitis affected Health ointment 00:00: area 2 00 times daily. hydrocortis Yes Contact Q.5D Apply to [facility] 2.5 % 7-08 dermatitis affected Health ointment 00:00: area 2 00 times daily. hydrocortis Yes Contact Q.5D Apply to [facility] gleason 2.5 % 7-08 dermatitis affected Health ointment 00:00: area 2 00 times daily. hydrocortis Yes Contact Q.5D Apply to [facility]ason 2.5 % 7-08 dermatitis affected Health ointment 00:00: area 2 00 times daily. hydrocortis Yes Contact Q.5D Apply to [facility] gleason 2.5 % 7-08 dermatitis affected Health ointment 00:00: area 2 00 times daily. guaiFENesin 2021- No Bronchitis, 600mg Q.5D Take 1 Malik SR 02-20- not tablet by Health (MUCINEX) 00:00: 00:00 specified mouth 2 600 mg 00 :00 as acute or times extended chronic daily Take release 1 tablet tablet twice a day as needed for cough and chest congestion .. guaiFENesin 2021- No Bronchitis, 600mg Q.5D Take 1 Malik SR 02-20- not tablet by Health (MUCINEX) 00:00: 00:00 specified mouth 2 600 mg 00 :00 as acute or times extended chronic daily Take release 1 tablet tablet twice a day as needed for cough and chest congestion .. guaiFENesin 2021- No Bronchitis, 600mg Q.5D Take 1 Malik SR 02-20- not tablet by Health (MUCINEX) 00:00: 00:00 specified mouth 2 600 mg 00 :00 as acute or times extended chronic daily Take release 1 tablet tablet twice a day as needed for cough and chest congestion .. guaiFENesin 2021- No Bronchitis, 600mg Q.5D Take 1 [facility]ik SR 6-25 - not tablet by Health (MUCINEX) 00:00: 00:00 specified mouth 2 600 mg 00 :00 as acute or times extended chronic daily Take release 1 tablet tablet twice a day as needed for cough and chest congestion .. guaiFENesin 2021- No Bronchitis, 600mg Q.5D Take 1 Malik SR 6-25 - not tablet by [facility] (MUCINEX) 00:00: 00:00 [...] 2{spray QD 2 Sprays [facility] (NASONEX) 01-22 08-26 rhinitis, } by each H ealth 50 00:00: 00:00 cause nostril mcg/actuati 00 :00 unspecified route on nasal daily. spray mometasone 2021- No Allergic 2{spray QD 2 Sprays [facility] (NASONEX) 01-22 08-26 rhinitis, } by each H ealth 50 [...] n, not stated as uncontrolle d glucose 2012-0 Yes Type II or 4 times H arris blood test 3-21 unspecified weekly. Health (PRECISION 00:00: type XTRA) strip 00 diabetes mellitus without mention of complicatio n, not stated as uncontrolle d LANCETS 2013-0 Yes Type II or 4 times H arris 3-21 unspecified weekly. Healt h 00:00: type 00 diabetes mellitus without mention of complicatio n, not stated as uncontrolle d glucose 2012- Yes Type II or 4 times H [facility] blood test 3-21 unspecified weekly. Health (PRECISION 00:00: type XTRA) strip 00 diabetes mellitus without mention of complicatio n, not stated as uncontrolle d LANCETS 2012-0 Yes Type II or 4 times H arris 3-21 unspecified weekly. Healt h 00:00: type 00 diabetes mellitus without mention of complicatio n, not stated as uncontrolle d glucose 2012-0 Yes Type II or 4 times H [facility] blood test 3-21 unspecified weekly. Health (PRECISION 00:00: type XTRA) strip 00 diabetes mellitus without mention of complicatio n, not stated as uncontrolle d LANCETS 2013-0 Yes Type II or 4 times H arris 3-21 unspecified weekly. Healt h 00:00: type 00 diabetes mellitus without mention of complicatio n, not stated as uncontrolle d glucose 2012-0 Yes Type II or 4 times H [...] Status Commen ts Source Name Name Pfizer Age 12yrs+ 2022-06-08 Completed [facility] Bivalent Booster 00:00:00 COVID Vaccine Pfizer Age 12yrs+ 2022-06-08 Completed [facility] Bivalent Booster 00:00:00 COVID Vaccine Pfizer Sars-cov-2 2021-05-25 Completed [facility] Vaccination 00:00:00 Pfizer Sars-cov-2 2021-05-25 Completed [facility] Vaccination 00:00:00 Pfizer Sars-cov-2 2021-05-25 Completed [facility] Vaccination 00:00:00 Pfizer Sars-cov-2 2021-05-25 Completed [facility] Vaccination 00:00:00 Pfizer Sars-cov-2 2020-09-21 Completed [facility] Vaccination 00:00:00 Pfizer Sars-cov-2 2020-09-21 Completed [facility] Vaccination 00:00:00 Pfizer Sars-cov-2 2020-09-21 Completed [facility] Vaccination 00:00:00 Pfizer Sars-cov-2 2020-09-21 Completed [facility] Vaccination 00:00:00 Pfizer Sars-cov-2 2020-08-31 Completed [facility] Vaccination 00:00:00 Pfizer Sars-cov-2 2020-08-31 Completed [facility] Vaccination 00:00:00 Pfizer Sars-cov-2 2020-08-31 Completed [facility] Vaccination 00:00:00 Pfizer Sars-cov-2 2020-08-31 Completed [facility] Vaccination 00:00:00 flu vax 2017-07-30 [facility] 12:28[facility] flu vax 2016-06-16 Completed [facility] 08:28:26 [facility] Influenza Vaccine 2015-05-27 Completed [facility] 00:00:00 Influenza Vaccine 2015-05-27 Completed [facility] 00:00:00 Influenza Vaccine 2015-05-27 Completed [facility] 00:00:00 Influenza Vaccine 2015-05-27 Completed [facility] 00:00:00 Influenza Vaccine 2015-05-27 Completed [facility] 00:00:00 Influenza Vaccine 2014-06-19 Completed [facility] 00:00:00 Influenza Vaccine 2014-06-19 Completed [facility] 00:00:00 Influenza Vaccine 2014-06-19 Completed [facility] 00:00:00 Influenza Vaccine 2014-06-19 Completed [facility] 00:00:00 Influenza Vaccine 2014-06-19 Completed [facility] 00:00:00 PPV 23 Pneumococcal 2012-08-31 Completed [facility] 00:00:00 PPV 23 Pneumococcal 2012-08-31 Completed [facility] 00:00:00 PPV 23 Pneumococcal 2012-08-31 Completed [facility] 00:00:00 PPV 23 Pneumococcal 2012-08-31 Completed [facility] 00:00:00 PPV 23 Pneumococcal 2012-08-31 Completed [facility] 00:00:00 Influenza Vaccine 2012-08-01 Completed [facility] 00:00:00 Tdap Tetanus, 2012-08-01 Completed [facility] diphtheria, 00:00:00 acellular pertussis Vaccine Influenza Vaccine 2012-08-01 Completed [facility] 00:00:00 Tdap Tetanus, 2012-08-01 Completed [facility] diphtheria, 00:00:00 acellular pertussis Vaccine Influenza Vaccine 2012-08-01 Completed [facility] 00:00:00 Tdap Tetanus, 2012-08-01 Completed [facility] diphtheria, 00:00:00 acellular pertussis Vaccine Influenza Vaccine 2012-08-01 Completed [facility] 00:00:00 Tdap Tetanus, 2012-08-01 Completed [facility] diphtheria, 00:00:00 acellular pertussis Vaccine Influenza Vaccine 2012-08-01 Completed [facility] 00:00:00 Tdap Tetanus, 2012-08-01 Completed [facility] diphtheria, 00:00:00 acellular pertussis Vaccine Vital Signs Vital Name Observation Time Observation Value Comments Source Systolic blood 2022-01-06 16:40:00 128 mm[Hg] [facility] pressure Diastolic blood 2022-01-06 16:40:00 63 mm[Hg] [facility] alth pressure Heart rate 2022-01-06 16:40:00 70 /min [facility] Body temperature 2022-01-06 16:40:00 36.28 [facility] height 2022-01-06 16:40:00 162.6 cm [facility] Body weight 2022-01-06 16:40:00 75.978 kg [facility] BMI 2022-01-06 16:40:00 28.75 kg/m2 [facility] Systolic blood 2022-06-11 10:50:00 133 mm[Hg] [facility] pressure Diastolic blood 2022-06-11 10:50:00 49 mm[Hg] [facility] pressure Heart rate 2022-06-11 10:50:00 81 /min [facility] Body temperature 2022-06-11 10:50:00 37.56 Melody [facility] Respiratory rate 2022-06-11 10:50:00 18 /min [facility] Body height 2022-06-11 10:50:00 162.6 cm [facility] Body weight 2022-06-11 10:50:00 77.021 kg [facility] BMI 2022-06-11 10:50:00 29.15 kg/m2 [facility] [...] ealth Systolic blood 2022-04-23 12:30:00 169 mm[Hg] [facility] pressure Diastolic blood 2022-04-23 12:30:00 51 mm[Hg] [facility] pressure Heart rate 2022-04-23 12:30:00 58 /min [facility] 2022-04-23 12:30:00 36.61 Melody [facility] Respiratory rate 2022-04-23 12:30:00 19 /min [facility] Body height 2022-04-23 12:30:00 162.6 cm [facility] Body weight 2022-04-23 12:30:00 74.027 kg [facility] BMI 2022-04-23 12:30:00 28.01 kg/m2 [facility] Oxygen saturation in 2022-02-03 15:32:00 98 /min [facility] Arterial blood by Pulse oximetry temperature site 2020-07-02 15:12:44 oral [facility] respiratory rate E&M 2020-07-02 15:12:44 16 /min [facility] Health pulse rate 2020-07-02 15:12:44 60 /min [facility] blood pressure, 2020-07-02 15:12:44 61 mm[Hg] [facility] diastolic [facility] blood pressure, 2020-07-02 15:12:44 119 mm[Hg] [facility] systolic Health weight E&M 2020-07-02 15:12:44 169 [lb_av[facility] in kilograms 2020-07-02 15:12:44 76.82 kg L [facility] E& Health height in 2020-07-02 15:12:44 162.56 cm [facility] centimeters [facility]&M Health oxygen saturation, 2020-07-02 15:12:44 98 % [facility] oximetry Health temperature E&M 2020-07-02 15:12:44 98.0 [degF] [facility], 2018-08-14 10:54:52 94 % [facility], 2018-08-14 10:54:52 72 mm[Hg] [facility] diastolic Health blood pressure, 2018-08-14 10:54:52 147 mm[Hg] [facility] systolic Health pulse rate 2018-08-14 10:54:52 81 /min [facility] temperature E&M 2018-08-14 10:54:52 98.4 [degF] [facility] y [facility] Health weight E&M 2018-08-14 10:54:52 171.25 [lb_av] [facility] kilograms 2018-08-14 10:54:52 77.84 kg L [facility] E&M Health temperature site 2018-08-14 10:54:52 oral Lega cy [facility] Health height in 2018-08-14 10:54:52 162.56 [facility] centimeters [facility] weight E&M 2018-07-04 14:01:38 184 [[facility]av] [facility] weight in kilograms 2018-07-04 14:01:38 83.64 kg L [facility] E& Health blood pressure, 2018-07-04 14:01:38 83 mm[Hg] [facility] diastolic Health blood pressure, 2018-07-04 14:01:38 133 mm[Hg] [facility] systolic Health oxygen saturation, 2018-07-04 14:01:38 95 % [facility] oximetry Health pulse rate 2018-07-04 14:01:38 90 /min [facility] temperature E&M 2018-07-04 14:01:38 98.2 [degF] Leg[facility] y [facility] temperature site 2018-07-04 14:01:38 oral Lega cy [facility] height in 2018-07-04 14:01:38 162.56 [facility] centimeters [facility] blood pressure, 2017-10-28 08:14:02 72 mm[Hg] [facility] diastolic Health blood pressure, 2017-10-28 08:14:02 123 mm[Hg] [facility] systolic Health oxygen saturation, 2017-10-28 08:14:02 97 % [facility] oximetry Health pulse rate 2017-10-28 08:14:02 85 /min [facility] temperature E&M 2017-10-28 08:14:02 96.9 [degF] [facility] Health weight E&M 2017-10-28 08:14:02 185.13 [lb_av] [facility] weight in kilograms 2017-10-28 08:14:02 84.15 kg L [facility] temperature site 2017-10-28 08:14:02 tympanic [facility] cy [facility] Health height in 2017-10-28 08:14:02 162.56 cm [facility] pulse rate 2017-07-30 12:28:45 80 /min [facility] blood pressure, 2017-07-30 12:28:45 72 mm[Hg] [facility] diastolic Health blood pressure, 2017-07-30 12:28:45 146 mm[Hg] [facility] systolic Health respiratory rate E&M 2017-07-30 12:28:45 16 /min [facility] oxygen saturation, 2017-07-30 12:28:45 98 % [facility] oximetry Health temperature E&M 2017-07-30 12:28:45 98.0 [degF] [facility] Health weight E&M 2017-07-30 12:28:45 184 [lb_av] [facility] Health weight in kilograms 2017-07-30 12:28:45 83.64 kg L [facility] E& Health temperature site 2017-07-30 12:28:45 tympanic [facility]ega cy [facility] Health height in 2017-07-30 12:28:45 162.56 cm [facility] centimeters E& Health pulse rate 2016-12-16 13:55:25 82 /min [facility] Health blood pressure, 2016-12-16 13:55:25 77 mm[Hg] [facility] diastolic Health blood pressure, 2016-12-16 13:55:25 155 mm[Hg] [facility] systolic Health oxygen saturation, 2016-12-16 13:55:25 96 % [facility] oximetry Health temperature E&M 2016-12-16 13:55:25 99.6 [degF] [facility] Health weight E&M 2016-12-16 13:55:25 185.60 [lb_av] [facility] Health weight in kilograms 2016-12-16 13:55:25 84.36 kg L [facility] temperature site 2016-12-16 13:55:25 tympanic [facility] cy [facility] Health height in 2016-12-16 13:55:25 162.56 [facility] centimeters [facility] pulse rate 2016-08-14 09:50:08 76 /min [facility] blood pressure, 2016-08-14 09:50:08 67 mm[Hg] [facility] diastolic Health blood pressure, 2016-08-14 09:50:08 111 mm[Hg] [facility] systolic Health temperature site 2016-08-14 09:50:08 tympanic L[facility] temperature E&M 2016-08-14 09:50:08 96.9 [degF] [facility] Health oxygen saturation, 2016-08-14 09:50:08 97 % [facility] oximetry Health weight E&M 2016-08-14 09:50:08 179.25 [lb_av] [facility] weight in kilograms 2016-08-14 09:50:08 81.48 kg L [facility] E& Health height in 2016-08-14 09:50:08 162.56 cm [facility] centimeters [facility] weight E&M 2016-06-16 08:28:26 178.50 [lb_av] [facility] weight in kilograms 2016-06-16 08:28:26 81.14 kg L [facility] oxygen saturation, 2016-06-16 08:28:26 98 % [facility] pulse rate 2016-06-16 08:28:26 73 /min [facility] blood pressure, 2016-06-16 08:28:26 69 mm[Hg] [facility] diastolic Health blood pressure, 2016-06-16 08:28:26 113 mm[Hg] [facility] systolic Health temperature E&M 2016-06-16 08:28:26 96.9 [degF] [facility] Health height in 2016-06-16 08:28:26 162.56 cm [facility] centimeters [facility] temperature site 2016-06-16 08:28:26 tympanic [facility] Health Procedures Procedure Date / Time Performed Performing Clinician Sourc e CA 125 2022-05-28 12:17:00 Blayne Robbins ealth CBC/DIFF 2022-05-28 12:17:00 [facility] COMPREHENSIVE METABOLIC 2022-05-28 12:17:00 Blayne Robbins [facility] PANEL MAGNESIUM 2022-05-28 12:17:00 Blayne Robbins ealt CBC 2022-05-28 12:17:00 [facility] HEMOCCULT KIT FOR SPECIMEN 2022-05-18 14:13:44 Polly Warren [facility] COLLECTION AT HOME OPHTHALMOLOGY RETINAL SCAN 2022-05-18 13:20:49 Clarissa [facility] MAMMOGRAM BILAT SCREEN 2022-05-18 11:55:54 Polly Warren [facility] Health DIGITAL W/BALDOMERO CA 125 2022-05-07 12:42:00 [facility] CBC/DIFF 2022-05-07 12:42:00 Blayne Robbins [facility] COMPREHENSIVE METABOLIC 2022-05-07 12:42:00 Blayne Robbins [facility] PANEL MAGNESIUM 2022-05-07 12:42:00 [facility] CBC 2022-05-07 12:42:00 Blayne Robbins [facility] MICROALBUMIN / CREATININE 2022-04-23 12:28:00 Polly Warren [facility] URINE RATIO HEMOGLOBIN A1C 2022-04-23 12:21:00 Polly Warren [facility] COMPREHENSIVE METABOLIC 2022-04-23 12:21:00 Polly Warren [facility] CBC (WITHOUT DIFFERENTIAL) 2022-04-23 12:21:00 Polly Warren [facility] CT ABDOMEN AND PELVIS 2022-04-15 14:21:00 Sweetie Grimes [facility] CONTRAST CT CHEST W CONTRAST 2022-04-15 14:21:00 Yodit Gonzalez [facility] HPV HIGH-RISK 2022-04-09 14:21:00 Yodit Gonzalez [facility] ENDOMETRIAL BIOPSY SUCTION 2022-04-09 14:13:31 Blayne Robbins Health TYPE TISSUE EXAM 2022-04-09 14:04:00 Yodit Gonzalez [facility] ealt PAP TEST CYTOLOGY 2022-04-09 14:04:00 Yodit Gonzalez [facility] CREATININE 2022-03-18 14:43:00 Sweetie Grimes [facility] CA 125 2022-03-16 10:51:00 Thalia Sutton [facility] h CA 19-9 2022-03-16 10:51:00 Thalia Sutton [facility] h CEA 2022-03-16 10:51:00 Thalia Sutton [facility] h TRANSTHORACIC ECHO (TTE) 2022-02-10 09:55:00 Salter, [facility] COMPLETE [id number] LEAD EKG 2022-02-03 15:41:10 Natali Siddiqui [facility] DIABETIC FOOT EXAM 2021-11-27 09:28:06 Joie [facility] ealth GLUCOSE POC 2021-11-27 09:24:00 Sal[facility] GLUCOSE POC 2021-11-27 08:43:00 Salter [facility] POC RAPID HIV 2021-11-27 00:00:00 Salter [facility] POC URINE DIPSTICK, WITHOUT 2021-11-27 00:00:00 Salter, [facility] MICRO POC RAPID HIV 2021-11-27 00:00:00 Jo[facility] Plan of Care Planned Activity Planned Date Details Comments Source Future Scheduled Test 2027-04-09 [facility] 00:00:00 malignant neoplasm of cervix (procedure) [code = 324876503] Future Scheduled Test 2027-04-09 [facility] 00:00:00 malignant neoplasm of cervix (procedure) [code = 564201009] Future Scheduled Test 2027-04-09 [facility] 00:00:00 malignant neoplasm of cervix (procedure) [code = 987837666] Future Scheduled Test 2027-04-09 [facility] 00:00:00 malignant neoplasm of cervix (procedure) [code = 744986873] Future Scheduled Test 2027-04-09 [facility] 00:00:00 malignant neoplasm of cervix (procedure) [code = 627070141] Future Scheduled Test 2027-04-09 [facility] 00:00:00 malignant neoplasm of cervix (procedure) [code = 361616677] Future Scheduled Test 2027-04-09 [facility] 00:00:00 malignant neoplasm of cervix (procedure) [code = 609798974] Future Scheduled Test 2027-04-09 [facility] 00:00:00 malignant neoplasm of cervix (procedure) [code = 424699495] Future Scheduled Test 2027-04-09 [facility] 00:00:00 malignant neoplasm of cervix (procedure) [code = 052536452] Future Scheduled Test 2027-04-09 [facility] 00:00:00 malignant neoplasm of cervix (procedure) [code = 480582372] Future Scheduled Test 2023-05-18 Breast Cancer Scrn [facility] 00:00:00 (Yearly) [code = Breast Cancer Scrn (Yearly)] Future Scheduled Test 2023-05-18 DM Retinal Exam [facility] 00:00:00 (Yearly) [code = DM Retinal Exam (Yearly)] Future Scheduled Test 2023-05-18 Breast Cancer Scrn [facility] 00:00:00 (Yearly) [code = Breast Cancer Scrn (Yearly)] Future Scheduled Test 2023-05-18 DM Retinal Exam [facility] 00:00:00 (Yearly) [code = DM Retinal Exam (Yearly)] Future Scheduled Test 2023-05-18 Breast Cancer Scrn [facility] 00:00:00 (Yearly) [code = Breast Cancer Scrn (Yearly)] Future Scheduled Test 2023-05-18 DM Retinal Exam [facility] 00:00:00 (Yearly) [code = DM Retinal Exam (Yearly)] Future Scheduled Test 2023-05-18 Breast Cancer Scrn [facility] 00:00:00 (Yearly) [code = Breast Cancer Scrn (Yearly)] Future Scheduled Test 2023-05-18 DM Retinal Exam [facility] 00:00:00 (Yearly) [code = DM Retinal Exam (Yearly)] Future Scheduled Test 2023-04-[address] [facility] 00:00:00 measurement (procedure) [code = 65883267] Future Scheduled Test 2023-04-23 Urine screening for [facility] 00:00:00 protein (procedure) [code = 095073201] Future Scheduled Test 2023-04-23 Hemoglobin A1c [facility] 00:00:00 measurement (procedure) [code = 30984537] Future Scheduled Test 2023-04-23 Hemoglobin A1c [facility] 00:00:00 measurement (procedure) [code = 25832783] Future Scheduled Test 2023-04-23 Hemoglobin A1c [facility] 00:00:00 measurement (procedure) [code = 67217639] Future Scheduled Test 2023-04-23 Hemoglobin A1c [facility] 00:00:00 measurement (procedure) [code = 64815695] Future Scheduled Test 2022-11-27 DM Foot Exam (Yearly) [facility] 00:00:00 [code = DM Foot Exam (Yearly)] Future Scheduled Test 2022-11-27 DM Foot Exam (Yearly) [facility] 00:00:00 [code = DM Foot Exam (Yearly)] Future Scheduled Test 2022-11-27 DM Foot Exam (Yearly) [facility] 00:00:00 [code = DM Foot Exam (Yearly)] Future Scheduled Test 2022-11-27 DM Foot Exam (Yearly) [facility] 00:00:00 [code = DM Foot Exam (Yearly)] Future Scheduled Test 2022-11-27 DM Foot Exam (Yearly) [facility] 00:00:00 [code = DM Foot Exam (Yearly)] Future Scheduled Test 2021-07-20 COVID-19 Vaccine (4 - [facility] 00:00:00 Booster for Pfizer series) [code = COVID-19 Vaccine (4 - Booster for Pfizer series)] Future Scheduled Test 2021-07-20 COVID-19 Vaccine (4 - [facility] 00:00:00 Booster for Pfizer series) [code = COVID-19 Vaccine (4 - Booster for Pfizer series)] Future Scheduled Test 2021-06-23 DM Retinal Exam [facility] 00:00:00 (Yearly) [code = DM Retinal Exam (Yearly)] Future Scheduled Test 2019 [facility] 00:00:00 malignant neoplasm of colon (procedure) [code = 290846273] Future Scheduled Test 2019 [facility] 00:00:00 malignant neoplasm of colon (procedure) [code = 860091000] Future Scheduled Test 2019 [facility] 00:00:00 malignant neoplasm of colon (procedure) [code = 444519308] Future Scheduled Test 2019 [facility] 00:00:00 malignant neoplasm of colon (procedure) [code = 735425774] Future Scheduled Test 2019 [facility] 00:00:00 malignant neoplasm of colon (procedure) [code = 170600882] Future Scheduled Test 2016-12-03 CORONARY ARTERY [facility] 00:00:00 DISEASE AGE 18 AND UP [code = CORONARY ARTERY DISEASE AGE 18 AND UP] Future Scheduled Test 2016-12-03 CORONARY ARTERY [facility] 00:00:00 DISEASE AGE 18 AND UP [code = CORONARY ARTERY DISEASE AGE 18 AND UP] Future Scheduled Test 2016-12-03 CORONARY ARTERY [facility] 00:00:00 DISEASE AGE 18 AND UP [code = CORONARY ARTERY DISEASE AGE 18 AND UP] Future Scheduled Test 2016-12-03 CORONARY ARTERY [facility] 00:00:00 DISEASE AGE 18 AND UP [code = CORONARY ARTERY DISEASE AGE 18 AND UP] Future Scheduled Test 2016-12-03 CORONARY ARTERY [facility] 00:00:00 DISEASE AGE 18 AND UP [code = CORONARY ARTERY DISEASE AGE 18 AND UP] Future Scheduled Test 2015-05-08 Breast Cancer Scrn [facility] 00:00:00 (Yearly) [code = Breast Cancer Scrn (Yearly)] Future Scheduled Test 2013-08-31 Imm Pneumococcal 0-64 [facility] 00:00:00 (2 - PCV) [code = Imm Pneumococcal 0-64 (2 - PCV)] Future Scheduled Test 2013-08-31 Imm Pneumococcal 0-64 [facility] 00:00:00 (2 - PCV) [code = Imm Pneumococcal 0-64 (2 - PCV)] Future Scheduled Test 2013-08-31 Imm Pneumococcal 0-64 [facility] 00:00:00 (2 - PCV) [code = Imm Pneumococcal 0-64 (2 - PCV)] Future Scheduled Test 2013-08-31 Imm Pneumococcal 0-64 [facility] 00:00:00 (2 - PCV) [code = Imm Pneumococcal 0-64 (2 - PCV)] Future Scheduled Test 2013-08-31 Imm Pneumococcal 0-64 [facility] 00:00:00 (2 - PCV) [code = Imm Pneumococcal 0-64 (2 - PCV)] Future Scheduled Test 1970-04-04 COVID-19 Vaccine (#1) [facility] 00:00:00 [code = COVID-19 Vaccine (#1)] Future Scheduled Test 1969 Fluoride Varnish [code [facility] 00:00:00 = Fluoride Varnish] Future Scheduled Test 1969 Fluoride Varnish [code [facility] 00:00:00 = Fluoride Varnish] Future Scheduled Test 1969 Fluoride Varnish [code [facility] 00:00:00 = Fluoride Varnish] Future Scheduled Test 1969 Fluoride Varnish [code [facility] 00:00:00 = Fluoride Varnish] Future Scheduled Test 1969 Fluoride Varnish [code [facility] 00:00:00 = Fluoride Varnish] Future Appointment 2022-06-22 Thalia MUNOZ, [address] [place] [address] 10:00:00 [place] [address] Future Appointment 2022-06-22 Thalia MUNOZ, [address] [place] [address] 10:00:00 [place] [address] Encounters Start End Encounter Admission Attending Care Care Encounter Source Date/Time Date/Time Type Type Clinicians Facility Department ID 2022-07-12 2022-07-12 Outpatient [facility] [id number] [place] 00:00:00 00:00:00 Health 2022-07-08 2022-07-08 [id number] [address] [place] [address] [facility]22-07-06 Outpatient [facility] [id number] [place] 00:00:00 00:00:00 Health 2022-06-29 2022-06-29 Outpatient [facility] [id number] [place] 00:00:00 00:00:00 Health 2022-06-28 2022-06-28 [facility] [id number] [place] [facility]22-[facility]-22 [facility] [id number] [place] [facility]-21 2022-06-21 Outpatient [facility] [id number] [place] 00:00:00 00:00:00 Health 2022-06-18 2022-06-18 Outpatient [facility] [id number] [place] 00:00:00 00:00:00 Health 2022-06-18 2022-06-18 Outpatient [facility] [id number] [place] 00:00:00 00:00:00 Health 2022-06-16 2022-06-16 TelephYann Hwang [facility] [id number] [place] 09:40:00 10:00:00 Encounter [facility] 2022-06-16 2022-06-16 Telephonic YANN ANTHONY [facility] [id number] [place] 06:32:06 06:32:06 Encounter [facility] 2022-06-16 2022-06-16 Caroline Novoa [facility] [id number] [place] 00:00:00 00:00:00 Only Paul Mason [facility] 2022-06-16 2022-06-16 Caroline Novoa [facility] [id number] [place] 00:00:00 00:00:00 Only Paul Mason [facility] 2022-06-11 2022-06-11 Office Mary Blevins [facility] [id number] [place] 10:30:00 12:27:51 Visit Milagro Ho [facility] 2022-06-11 2022-06-11 Office Mary Blevins [facility] [id number] [place] 10:30:00 12:27:51 Visit Milagro Ho [facility] 2022-06-09 2022-06-09 Tino Nathan [facility] [id number] [place] 00:00:00 00:00:00 Marion [facility] 2022-06-09 2022-06-09 Tino Nathan [facility] [id number] [place] 00:00:00 00:00:00 [facility] 2022-06-08 2022-06-08 Yann Stevenson [facility] [id number] [place] 10:45:00 12:34:38 on Health 2022-06-08 2022-06-08 Yann Stevenson [facility] [id number] [place] 10:45:00 12:34:38 on Health 2022-06-08 2022-06-08 Office Jac [facility] [id number] [place] 10:00:00 12:13:28 Visit Marion [facility] 2022-06-082022-06-08 Office Jac, [facility] [id number] [place] 10:00:00 12:13:28 Visit Marion [facility] 2022-06-07 2022-06-07 Outpatient [facility] [id number] [place] 00:00:00 00:00:00 [facility] 2022-06-05 2022-06-05 [facility] [id number] [place] 00:00:00 00:00:00 Triage [facility] 2022-06-05 2022-06-05 [facility] [id number] [place] 00:00:00 00:00:00 Triage [facility] 2022-06-03 2022-06-03 Telephonic [place] [facility] [id number] [place] 13:00:00 14:43:50 Encounter Jamel [facility] 2022-06-03 2022-06-03 [facility] [id number] [place] 13:00:00 14:43:50 Encounter Jamel [facility] 2022-06-03 2022-06-03 Outpatient GC_SEFP_Riv PRIV PRIV [id number] [place] 00:00:00 00:00:00 era_A [id number] Medica l 2022-06-03 2022-06-03 [facility] [id number] [place] 00:00:00 00:00:00 [facility] 2022-05-31 2022-05-31 Infusion Kiarra Ramos [facility] [id number] [place] 07:30:00 15:17:48 Blayne Robbins [facility] 2022-05-31 2022-05-31 Infusion Kiarra Ramos [facility] [id number] [place] 07:30:00 15:17:48 Blyane Robbins [facility] 2022-05-28 2022-05-28 Office Claudia [facility] [id number] [place] 13:00:00 14:23:26 Visit Patricia Parrish [facility] 2022-05-28 2022-05-28 Office Claudia [facility] [id number] [place] 13:00:00 14:23:26 Visit Patricia Parrish [facility] 2022-05-28 2022-05-28 Outpatient [facility] [id number] [place] 12:14:14 12:26:45 Health 2022-05-28 2022-05-28 Outpatient [facility] [id number] [place] 00:00:00 00:00:00 [facility] 2022-05-26 2022-05-26 [facility] [id number] [place] 13:00:00 13:39:52 [facility] 2022-05-26 2022-05-26 [facility] [id number] [place] 13:00:00 13:39:52 Visit [facility] 2022-05-18 2022-05-18 [facility] [id number] [place] 11:07:14 23:59:00 Encounter [facility] 2022-05-18 2022-05-18 [facility] [id number] [place] 11:07:14 23:59:00 Encounter [facility] 2022-05-18 2022-05-18 [facility] [id number] [place] 13:00:00 14:35:01 Visit Polly Mason [facility] 2022-05-18 2022-05-18 [facility] [id number] [place] 13:00:00 14:35:01 Visit Polly Mason [facility] 2022-05-18 2022-05-18 Ancillary Da [facility] [id number] [place] 13:30:00 13:30:00 Procedure Clarissa [facility] 2022-05-18 2022-05-18 Ancillary Da [facility] [id number] [place] 13:30:00 13:30:00 Procedure Clarissa [facility] 2022-05-18 2022-05-18 Outpatient [facility] [id number] [place] 00:00:00 00:00:00 [facility] 2022-05-18 2022-05-18 Caroline Roberson [facility] [id number] [place] 00:00:00 00:00:00 Only Clarissa Fuller [facility] 2022-05-18 2022-05-18 Caroline Warren [facility] [id number] [place] 00:00:00 00:00:00 Only Polly Mason [facility] 2022-05-18 2022-05-18 Tino Orta, [facility] [id number] [place] 00:00:00 00:00:00 Meroe B [facility] 2022-05-18 2022-05-18 Caroline Warren [facility] [id number] [place] 00:00:00 00:00:00 Only Polly Mason [facility] 2022-05-18 2022-05-18 Caroline Warren [facility] [id number] [place] 00:00:00 00:00:00 Only Polly Mason [facility] 2022-05-18 2022-05-18 Tino Orta, [facility] [id number] [place] 00:00:00 00:00:00 Meroe B [facility] 2022-05-18 2022-05-18 Caroline Warren [facility] [id number] [place] 00:00:00 00:00:00 Only Polly Mason [facility] 2022-05-18 2022-05-18 Caroline Roberson [facility] [id number] [place] 00:00:00 00:00:00 Only Clarissa Fuller [facility] 2022-05-13 2022-05-13 [facility] [id number] [place] 00:00:00 00:00:00 Pending sale to [facility] 2022-05-10 2022-05-10 Infusion Anitra Murillo [facility] [id number] [place] 08:30:00 17:48:10 Blayne Robbins [facility] 2022-05-10 2022-05-10 Infusion Anitra Murillo [facility] [id number] [place] 08:30:00 17:48:10 Blayne Robbins [facility] 2022-05-07 2022-05-07 [facility] [id number] [place] 13:30:00 14:37:11 Visit Brayan Mason [facility] 2022-05-07 2022-05-07 Office Guy [facility] [id number] [place] 13:30:00 14:37:11 Visit Brayan Isabella [facility] 2022-05-07 2022-05-07 Outpatient [facility] [id number] [place] 12:38:13 12:42:58 [facility] 2022-05-07 2022-05-07 [facility] [id number] [place] 00:00:00 00:00:00 [facility] 2022-05-06 2022-05-06 [facility] [id number] [place] 00:00:00 00:00:00 [facility] 2022-05-05 2022-05-05 [facility] [id number] [place] 00:00:00 00:00:00 Only Clarissa Fuller [facility] 2022-05-05 2022-05-05 [facility] [id number] [place] 00:00:00 00:00:00 Only Clarissa Fuller [facility] 2022-04-30 2022-04-30 [facility] [id number] [place] 00:00:00 00:00:00 [facility] 2022-04-29 2022-04-29 Office Gibson Aragon [facility] [id number] [place] 14:40:00 14:45:59 Visit Jen Orta Ana Polly Warren 2022-04-29 2022-04-29 Office Gibson Aragon [facility] [id number] [place] 14:40:00 14:45:59 Visit Jen Orta [facility] Polly Warren 2022-04-29 2022-04-29 Outpatient [facility] [id number] [place] 13:41:59 13:43:09 [facility] 2022-04-29 2022-04-29 [facility] [id number] [place] 00:00:00 00:00:00 [facility] 2022-04-29 2022-04-29 Patient Heri [facility] [id number] [place] 00:00:00 00:00:00 Education Jessica [facility] 2022-04-29 2022-04-29 Patient Heri [facility] [id number] [place] 00:00:00 00:00:00 Education Jessica Heal 2022-04-28 2022-04-28 Pre-Clinic Gonzalo [facility] [id number] [place] 00:00:00 00:00:00 Review Avanthi S Heal 2022-04-28 2022-04-28 Pre-Clinic Gonzalo [facility] [id number] [place] 00:00:00 00:00:00 Review Avanthi S [facility]al 2022-04-26 2022-04-26 [facility] [id number] [place] 00:00:00 00:00:00 Pending sale to [facility] 2022-04-23 2022-04-23 Office Mary Blevins [facility] [id number] [place] 12:00:00 13:58:38 Visit Thomas Felix [facility] 2022-04-23 2022-04-23 Office Mary Blevins [facility] [id number] [place] 12:00:00 13:58:38 Visit Thomas Felix [facility] 2022-04-23 2022-04-23 Outpatient [facility] [id number] [place] 12:19:18 12:22:01 [facility] 2022-04-23 2022-04-23 Office Cammy Dial [facility] [id number] [place] 09:20:00 12:17:06 [facility] WarrenPolly rivas 2022-04-23 2022-04-23 Office Cammy Dial [facility] [id number] [place] 09:20:00 12:17:06 [facility] BrianaPolly 2022-04-23 2022-04-23 [facility] [id number] [place] 00:00:00 00:00:00 [facility] 2022-04-23 2022-04-23 [facility] [id number] [place] 00:00:00 00:00:00 [facility] 2022-04-23 2022-04-23 Outpatient [facility] [id number] [place] 00:00:00 00:00:00 [facility] 2022-04-23 2022-04-23 Caroline Warren [facility] [id number] [place] 00:00:00 00:00:00 Only Polly Mason Sil 2022-04-23 2022-04-23 Nurse Only Briana [facility] [id number] [place] 00:00:00 00:00:00 Polly Isabella [facility] 2022-04-23 2022-04-23 Caroline Connor [facility] [id number] [place] 00:00:00 00:00:00 Only [facility] 2022-04-23 2022-04-23 Caroline Warren [facility] [id number] [place] 00:00:00 00:00:00 Only Polly Mason [facility] 2022-04-23 2022-04-23 Nurse Daniel Warren [facility] [id number] [place] 00:00:00 00:00:00 Polly Mason [facility] 2022-04-23 2022-04-23 Caroline Connor [facility] [id number] [place] 00:00:00 00:00:00 Only [facility] 2022-04-15 2022-04-15 Ancillary [facility] [id number] [place] 13:20:00 14:24:27 Procedure [facility] 2022-04-15 2022-04-15 Ancillary [facility] [id number] [place] 13:20:00 14:24:27 Procedure [facility] 2022-04-14 2022-04-14 Refill Danielle Wilson [facility] [id number] [place] 00:00:00 00:00:00 [facility] 2022-04-14 2022-04-14 Refill Cornelio, [facility] [id number] [place] 00:00:00 00:00:00 [facility] 2022-04-14 2022-04-14 Refill Danielle Wilson [facility] [id number] [place] 00:00:00 00:00:00 [facility] 2022-04-14 2022-04-14 Refill Cornelio [facility] [id number] [place] 00:00:00 00:00:00 [facility] 2022-04-13 2022-04-13 Nurse Lewis [facility] [id number] [place] 00:00:00 00:00:00 Triage Elijah [facility] 2022-04-13 2022-04-13 Caroline Roberson [facility] [id number] [place] 00:00:00 00:00:00 Only Clarissa Fuller [facility] 2022-04-13 2022-04-13 Refill Cornelio [facility] [id number] [place] 00:00:00 00:00:00 [facility] 2022-04-13 2022-04-13 Refnae Salter [facility] [id number] [place] 00:00:00 00:00:00 Deysi Fabian [facility] 2022-04-13 2022-04-13 Refill Dov [facility] [id number] [place] 00:00:00 00:00:00 [facility] 2022-04-13 2022-04-13 Refill Faustinella [facility] [id number] [place] 00:00:00 00:00:00 , Yimila Swapnilla [facility] 2022-04-13 2022-04-13 Refill Daily [facility] [id number] [place] 00:00:00 00:00:00 [facility] 2022-04-13 2022-04-13 Refill Lesley [facility] [id number] [place] 00:00:00 00:00:00 [facility] 2022-04-13 2022-04-13 Nurse Lewis, [facility] [id number] [place] 00:00:00 00:00:00 Triage Elijah [facility] 2022-04-13 2022-04-13 Caroline Roberson [facility] [id number] [place] 00:00:00 00:00:00 Only Clarissa Fuller [facility] 2022-04-13 2022-04-13 Refill Cornelio [facility] [id number] [place] 00:00:00 00:00:00 Sweetie Flores [facility] 2022-04-13 2022-04-13 Refill Joie [facility] [id number] [place] 00:00:00 00:00:00 Garcia Caren [facility] 2022-04-13 2022-04-13 Refill Dov [facility] [id number] [place] 00:00:00 00:00:00 [facility] 2022-04-13 2022-04-13 Refill Faustinella [facility] [id number] [place] 00:00:00 00:00:00 , Shade Swapnilla [facility] 2022-04-13 2022-04-13 Refill Daily [facility] [id number] [place] 00:00:00 00:00:00 Rad[facility] 2022-04-13 2022-04-13 Refill Lesley [facility] [id number] [place] 00:00:00 00:00:00 Thalia Mason [facility] 2022-04-12 2022-04-12 Re[facility]ast [facility] [id number] [place] 00:00:00 00:00:00 Jugminerva Mark [facility] 2022-04-12 2022-04-12 [facility] [id number] [place] 00:00:00 00:00:00 [facility] 2022-04-09 2022-04-09 Office BlevinsMary [facility] [id number] [place] 11:30:00 14:28:10 Visit Yodit Gonzlaez [facility] 2022-04-09 2022-04-09 Office Mary Blevins [facility] [id number] [place] 11:30:00 14:28:10 Visit Yodit Gonzalez [facility] 2022-04-09 2022-04-[address] [facility] [id number] [place] 00:00:00 00:00:00 MARY Armijo 2022-04-09 2022-04-09 [facility] [id number] [place] 00:00:00 00:00:00 Only Yodit Kraft [facility] 2022-04-09 2022-04-09 [facility] [id number] [place] 00:00:00 00:00:00 Only Yodit Kraft [facility] 2022-03-18 2022-03-18 Outpatient [facility] [id number] [place] 14:40:35 14:44:03 [facility] 2022-03-18 2022-03-18 [facility] [id number] [place] 13:30:00 14:28:59 [facility] 2022-03-18 [facility] [id number] [place] 13:30:00 14:28:59 Visit [facility] 2022-03-18 2022-03-18 [facility] [id number] [place] 00:00:00 00:[facility]:00 [facility] 2022-03-17 Nurse Lewis [facility] [id number] [place] 00:00:00 00:00:00 [facility] 2022-03-17 Nurse Joshua, [facility] [id number] [place] 00:00:00 00:00:00 Triage Elijah [facility] 2022-03-16 2022-03-16 Outpatient LESLEY, [facility] [id number] [place] 10:43:39 10:51:12 [facility] 2022-03-16 2022-03-16 Outpatient LESLEY, [facility] [id number] [place] 00:00:00 00:00:00 [facility] 2022-03-16 2022-03-16 Outpatient LESLEY, [facility] [id number] [place] 00:00:00 00:00:00 [facility] 2022-03-15 2022-03-15 Refill Salter, [facility] [id number] [place] 00:00:00 00:00:00 Deysi Fabian [facility] 2022-03-15 2022-03-15 Refill Dov, [facility] [id number] [place] 00:00:00 00:00:00 [facility] 2022-03-15 2022-03-15 Refill Lesley, [facility] [id number] [place] 00:00:00 00:00:00 [facility]15 2022-03-15 Refill Salter, [facility] [id number] [place] 00:00:00 00:00:00 Deysi Fabian [facility] 2022-03-15 2022-03-15 Refill Dov, [facility] [id number] [place] 00:00:00 00:00:00 [facility] 2022-03-15 2022-03-15 Refill Lesley, [facility] [id number] [place] 00:00:00 00:00:00 [facility] 2022-03-08 2022-03-08 Orders Lesley, [facility] [id number] [place] 00:00:00 00:00:00 Only [facility] 2022-03-08 2022-03-08 Orders Lesley, [facility] [id number] [place] 00:00:00 00:00:00 Only [facility] 2022-03-04 2022-03-04 Office Lesley, [facility] [id number] [place] 10:20:00 11:47:45 Visit Thalia Mason [facility] 2022-03-04 2022-03-04 Office Lesley, [facility] [id number] [place] 10:20:00 11:47:45 Visit Thalia Mason [facility] 2022-02-16 2022-02-16 Nurse Lay, Pricilla [facility] [id number] [place] 00:00:00 00:00:00 [facility] 2022-02-16 2022-02-16 Refill Dov, [facility] [id number] [place] 00:00:00 00:00:00 [facility] 2022-02-16 2022-02-16 Refill Faustinella [facility] [id number] [place] 00:00:00 00:00:00 , Shade Parrish [facility] 2022-02-16 2022-02-16 Nurse Pricilla Chong [facility] [id number] [place] 00:00:00 00:00:00 [facility] 2022-02-16 2022-02-16 Refill Dov, [facility] [id number] [place] 00:00:00 00:00:00 [facility] 2022-02-16 2022-02-16 Refill Faustinella [facility] [id number] [place] 00:00:00 00:00:00 , Shade Parrish [facility] 2022-02-10 2022-02-10 [facility] [id number] [place] 09:00:00 23:59:00 Encounter Deysi Parrish [facility] 2022-02-10 2022-02-10 [facility] [id number] [place] 09:00:00 23:59:00 Encounter Deysi Parrish [facility] 2022-02-10 2022-02-10 Outpatient [facility] [id number] [place] 00:00:00 00:00:00 [facility] 2022-02-03 2022-02-03 Emergency [facility] [id number] [place] 15:31:00 18:28:04 [facility] 2022-02-03 2022-02-03 Emergency [facility] [id number] [place] 15:31:00 18:28:04 Health 2022-02-03 2022-02-03 Emergency [facility] [id number] [place] 00:00:00 00:00:00 Health 2022-01-21 2022-01-21 Telephone Arin Ramirez [facility] 1.2. [id number] [id number] [place] 00:00:00 00:00:00 Arin Ramirez SE MED 350.1.13.5 8 Health [place] 1 [id number] [id number] 2022-01-21 2022-01-21 Telephone Arin Ramirez [facility] 1.2. 840.114 [id number] [place] 00:00:00 00:00:00 Arin Ramirez SE [facility] 350.1.13.5 8 Health [place] 1 [id number] [id number] 2022-01-19 2022-01-19 Office Radha Magaña [facility] [id number] [place] 13:40:00 14:24:36 Visit Thalia Sutton [facility] 2022-01-19 2022-01-19 Office Radha Magaña [facility] [id number] [place] 13:40:00 14:24:36 Visit Thalia Sutton [facility] 2022-01-19 2022-01-19 Orders Lesley [facility] [id number] [place] 00:00:00 00:00:00 Only Thalia Mason [facility] 2022-01-19 2022-01-19 Orders Lesley [facility] [id number] [place] 00:00:00 00:00:00 Only Thalia Mason [facility] 2022-01-18 2022-01-18 Telephone JEEVAN Romero [id number] [place] 00:00:00 00:00:00 Teodoro DONOHUE 350.1.13.58 Health OD [id number] 2022-01-08 2022-01-08 [facility] [id number] [place] 00:00:00 00:00:00 [facility] 2022-01-06 2022-01-06 Office Nick [facility] [id number] [id number] [place] 11:00:00 12:19:59 Visit Teodoro DONOHUE 350.1.13.58 [facility] [id number] [id number] 2021-12-15 2021-12-15 Emergency E ALCANTER, MHBL MHBL [id number] MHBL 08:06:00 15:30:00 JUVENTINO 2021-12-10 2021-12-10 [facility] [id number] [place] 00:00:00 00:00:00 [facility] 2021-12-09 2021-12-09 Outpatient [facility] [id number] [place] 00:00:00 00:00:00 [facility] 2021-12-09 2021-12-09 [facility] [id number] [place] 00:00:00 00:00:00 [facility] 2021-12-08 2021-12-08 Outpatient [facility] [id number] [place] 00:00:00 00:00:00 [facility] 2021-12-04 2021-12-04 [facility] [id number] [place] 23:59:00 23:59:00 Encounter [facility] 2021-12-04 2021-12-04 [facility] [id number] [place] 23:59:00 23:59:00 Encounter [facility] 2021-12-04 2021-12-04 [facility] [id number] [place] 00:00:00 00:00:00 [facility] 2021-12-04 2021-12-04 [facility] [id number] [place]ik 00:00:00 00:00:00 [facility] 2021-12-02 2021-12-02 [facility] [id number] [place] 00:00:00 00:00:00 [facility] 2021-11-30 2021-11-30 [facility] [id number] [place] 00:00:00 00:00:00 [facility] 2021-11-30 2021-11-30 [facility] [id number] [place] 00:00:00 00:00:00 Deysi Armijo 2021-11-27 2021-11-27 [facility] [id number] [place] 08:20:00 09:47:21 Visit Deysi regalado 2021-11-27 2021-11-27 [facility] [id number] [place] 08:20:00 09:47:21 Visit Deysi Armijo 2021-11-27 2021-11-27 [facility] [id number] [place] 00:00:00 00:00:00 Only Deysi Armijo 2021-11-27 2021-11-27 [facility] [id number] [place] 00:00:00 00:00:00 Only Deysi Armijo 2021-11-13 2021-11-13 Emergency E SAMIR, MHBL MHBL [id number] 10:19:00 12:21:00 [facility] 2021-06-23 2021-06-23 Orders Joie [facility] [id number] [address] [place] [address] 00:00:00 00:00:00 Only Health 2021-06-23 2021-06-23 Orders Joie [facility] [id number] [address] [place] [address] 00:00:00 00:00:00 [facility] 2020-07-02 2020-07-02 Office ROMULO Juan [facility] Encoun ter/ Legacy 00:00:00 00:00:00 Visit Sammie [id number] [facility] samantha [id number] Health 2020-07-02 2020-07-02 Office [facility] Encounter/ Legacy 00:00:00 00:00:00 Visit Alexandra Nagel [id number] Communi [id number] Health 2020-06-23 2020-06-23 Office ROMULO Mcwilliams [facility] Encounter / Legacy 00:00:00 00:00:00 Visit Juany [id number] Co mmuni [id number] Health 2020-06-23 2020-06-23 Office Juany Mcwilliams [facility] Encounter/ Legacy 00:00:00 00:00:00 Visit Kiarra Silva [id number] [facility] [id number] [facility] 2020-04-25 2020-04-25 Emergency E LANDON, [facility] [id number] [facility] 14:34:00 16:16:00 ANDREA 2019-09-26 2019-09-26 Emergency E ADAM [facility] [id number] [facility] 16:11:00 21:45:00 MALIK 2019-05-24 2019-05-24 Inpatient E [facility] MED [id number] [facility] 04:42:00 04:42:00 2018-11-15 2018-11-15 Office Status, Dainax ROMULO SEBASTIAN Encoun ter/ Legacy 00:00:00 00:00:00 Visit [id number] Com samantha [id number] ty Health 2018-11-10 2018-11-10 Office ROMULO Maldonado Encount er/ Legacy 00:00:00 00:00:00 Visit Clarissa [id number] Com samantha 398125 ty Health 2018-11-10 2018-11-10 Office Clarissa Maldonado Encounter/ Legacy 00:00:00 00:00:00 Visit Re Owen [id number] [facility] Mallory Esparza [id number] [facility] 2018-08-15 2018-08-15 Office Clarissa Maldonado Encounter/ Legacy 00:00:00 00:00:00 Visit Caren Beck [id number] [facility] [id number] Health 2018-08-14 2018-08-14 Office ROMULO Duong Encounter/ Legacy 00:00:00 00:00:00 Visit Hoa [id number] Com samantha 990933 ty Health 2018-08-14 2018-08-14 Office ROMULO Duong Encounter/ Legacy 00:00:00 00:00:00 Visit Hoa [id number] Com samantha [id number] ty Health 2018-08-14 2018-08-14 Office ROMULO Duong Encounter/ Legacy 00:00:00 00:00:00 Visit Hoa [id number] Com samantha [id number] Health 2018-08-14 2018-08-14 Office Hoa Duong Enco unter/ Legacy 00:00:00 00:00:00 Visit Ragini Toro [id number] [facility] [id number] ty Health 2018-07-11 2018-07-11 [facility] Legacy 00:00:00 00:00:00 Visit Caren Beck [id number] [facility] Lou [facility],, [place] 067148 ty Health 2018-07-06 2018-07-06 Office Joel [facility] Encount er/ Legacy 00:00:00 00:00:00 Visit Clarissa [id number] Com samantha 324196 ty Health 2018-07-04 2018-07-04 [facility] Legacy 00:00:00 00:00:00 Visit Radha Tom [id number] [facility] AniyaCasandra 183021 ty Health 2018-07-04 2018-07-04 Office Joel [facility] Encount er/ Legacy 00:00:00 00:00:00 Visit Clarissa [id number] Com samantha [id number] ty Health 2018-07-04 2018-07-04 Office Joel [facility] Encount er/ Legacy 00:00:00 00:00:00 Visit Clarissa [id number] Com samantha [id number] ty Health 2018-07-04 2018-07-04 Office Joel [facility] Encount er/ Legacy 00:00:00 00:00:00 Visit Clarissa [id number] Com samantha 794750 ty Health 2018-06-05 2018-06-05 [facility] Legacy [facility]:00:00 00:00:00 Visit Caren Beck [id number] Communi 093582 ty Health 2018-05-31 2018-05-31 Office [facility] En[facility] Legacy 00:00:00 00:00:00 Visit Caren Beck [id number] Communi [id number] ty Health 2018-05-02 2018-05-02 Office Jasonnathanielhumble [facility] Encount er/ Legacy 00:00:00 00:00:00 Visit Clarissa [id number] Com samantha [id number] Health 2018-05-02 2018-05-02 Office Eron [facility] Encount er/ Legacy 00:00:00 00:00:00 Visit Clarissa [id number] Com samantha [id number] Health 2018-03-27 2018-03-27 Office Eron [facility] Encount er/ Legacy 00:00:00 00:00:00 Visit Clarissa [id number] Com samantha [id number] Health 2018-03-27 2018-03-27 [facility]:00:00 00:00:00 Visit Clarissa [id number] Com samantha [id number] Health 2018-03-27 2018-03-27 [facility] 00:00:00 00:00:00 Visit Clarissa [id number] Com samantha [id number] Health 2018-03-27 2018-03-27 [facility] 00:00:00 00:00:00 Visit Clarissa [id number] Com samantha [id number] Health 2018-01-25 2018-01-25 [facility] 00:00:00 00:00:00 Visit Clarissa [id number] Com samantha [id number] Health 2018-01-25 2018-01-25 [facility] 00:00:00 00:00:00 Visit Clarissa [id number] Com samantha [id number] Health 2018-01-25 2018-01-25 [facility] Legacy 00:00:00 00:00:00 Visit Clarissa [id number] Com samantha [id number] Health 2018-01-25 2018-01-25 Office [facility] Legacy 00:00:00 00:00:00 Visit Clarissa [id number] Com samantha [id number] Health 2017-12-12 2017-12-12 Office [facility] Legacy 00:00:00 00:00:00 Visit Clarissa [id number] Com samantha 950201 ty Health 2017-12-10 2017-12-10 Office [facility] Encount er/ Legacy 00:00:00 00:00:00 Visit Clarissa [id number] Com samantha 935287 ty Health 2017-11-01 2017-11-01 [facility]:00:00 00:00:00 Visit Radha [id number] Com samantha 469146 ty Health 2017-10-28 2017-10-28 Office [facility] Encount er/ Legacy 00:00:00 00:00:00 Visit Clarissa [id number] Com samantha [id number] Health 2017-10-28 2017-10-28 Office [facility] Encount er/ Legacy 00:00:00 00:00:00 Visit Clarissa [id number] Com samantha 178973 ty Health 2017-10-28 2017-10-28 Office [facility] Encounter/ Legacy 00:00:00 00:00:00 Visit Napoleon Ramirez [id number] Communi [id number] Health 2017-10-28 2017-10-28 Office [facility] Encount er/ Legacy 00:00:00 00:00:00 Visit Clarissa [id number] Com samantha [id number] ty Health 2017-10-28 2017-10-28 Office [facility] Encount er/ Legacy 00:00:00 00:00:00 Visit Clarissa [id number] Com samantha 494733 ty Health 2017-10-28 2017-10-28 Office [facility] Encounter/ Legacy 00:00:00 00:00:00 Visit Ailyn Zavala [id number] Radha Musa 725462 ty Napoleon Ramirez FaQuazia 2017-08-11 2017-08-11 Office [facility] Encount er/ Legacy 00:00:00 00:00:00 Visit Clarissa [id number] Com samantha [id number] [facility] 2017-08-11 2017-08-11 Office [facility] Encount er/ Legacy 00:00:00 00:00:00 Visit Clarissa [id number] Com samantha [id number] Health 2017-08-09 2017-08-09 Office [facility] Encounter/ Legacy 00:00:00 00:00:00 Visit Krystina Morrow [id number] [address] [place] [address] Reeec King [id number] [facility] 2017-08-09 2017-08-09 Office [facility] Encount er/ Legacy 00:00:00 00:00:00 Visit Clarissa [id number] Com samantha [id number] Health 2017-08-06 2017-08-06 [facility] Encount er/ Legacy 00:00:00 00:00:00 Visit Clarissa [id number] Com samantha [id number] Health 2017-08-02 2017-08-02 [facility] Encount er/ Legacy 00:00:00 00:00:00 Visit Clarissa [id number] Com samantha [id number] Health 2017-08-02 2017-08-02 [facility] Encount er/ Legacy 00:00:00 00:00:00 Visit Clarissa [id number] Com samantha [id number] Health 2017-08-02 2017-08-02 [facility] Encounter/ Legacy 00:00:00 00:00:00 Visit Kiarra Aguirre [id number] [address] [place], [place] [address]i 147996 Health 2017-07-30 2017-07-30 Office [facility] Encount er/ Legacy 00:00:00 00:00:00 Visit Clarissa [id number] Com samantha [id number] Health 2017-07-30 2017-07-30 [facility] Encount er/ Legacy 00:00:00 00:00:00 Visit Clarissa [id number] Com samantha [id number] Health 2017-07-30 2017-07-30 Office [facility] Encount er/ Legacy 00:00:00 00:00:00 Visit Clarissa [id number] Com samantha [id number] Health 2017-07-30 2017-07-30 [facility] Encount er/ Legacy 00:00:00 00:00:00 Visit Clarissa [id number] Com samantha [id number] Health 2017-07-30 2017-07-30 Office [facility] En[facility]/ Legacy 00:00:00 00:00:00 Visit NegroRadha toscano [phone] [facility] Cohen, Timmy [id number] Health 2017-06-29 2017-06-29 Office [facility] Encount er/ Legacy 00:00:00 00:00:00 Visit Clarissa [id number] Com samantha [id number] Health 2017-06-29 2017-06-29 Office Eron [facility] Encount er/ Legacy 00:00:00 00:00:00 Visit Clarissa [id number] Com samantha 083305 ty Health 2017-06-29 2017-06-29 Office Eron [facility] Encount er/ Legacy 00:00:00 00:00:00 Visit Clarissa [id number] Com samantha [id number] ty Health 2017-06-29 2017-06-29 Office Eron [facility] Encount er/ Legacy 00:00:00 00:00:00 Visit Clarissa [id number] Com samantha [id number] ty Health 2017-06-26 2017-06-26 Office Jasonnathaniel [facility] Encount er/ Legacy 00:00:00 00:00:00 Visit Clarissa [id number] Com samantha [id number] ty Health 2017-06-26 2017-06-26 Office Jasonnathaniel [facility] Encount er/ Legacy 00:00:00 00:00:00 Visit Clarissa [id number] Com saamntha [id number] Health 2017-06-08 2017-06-08 [facility] En[facility]/ Legacy 00:00:00 00:00:00 Visit Kiarra Aguirre [id number] [address] Musa [id number] Health 2017-06-03 2017-06-03 [facility] Encount er/ Legacy 00:00:00 00:00:00 Visit Clarissa [id number] Com samantha [id number] Health 2017-06-03 2017-06-03 [facility] Encount er/ Legacy 00:00:00 00:00:00 Visit Clarissa [id number] Com samantha [id number] Health 2017-05-06 2017-05-06 Office [facility] Encount er/ Legacy 00:00:00 00:00:00 Visit Clarissa [id number] Com samantha [id number] Health 2017-05-04 2017-05-04 [facility] Encount er/ Legacy 00:00:00 00:00:00 Visit Clarissa [id number] Com samantha [id number] Health 2017-05-01 2017-05-01 [facility] Encount er/ Legacy 00:00:00 00:00:00 Visit Clarissa [id number] Com samantha [id number] Health 2017-04-06 2017-04-06 [facility] Encount er/ Legacy 00:00:00 00:00:00 Visit Clarissa [id number] Com samantha [id number] Health 2017-04-04 2017-04-04 [facility] Encount er/ Legacy 00:00:00 00:00:00 Visit Clarissa [id number] Com samantha [id number] Health 2017-04-01 2017-04-01 [facility] Encount er/ Legacy 00:00:00 00:00:00 Visit Clarissa [id number] Com samantha 718897 ty Health 2017-03-06 2017-03-06 [facility] Encount er/ Legacy 00:00:00 00:00:00 Visit Clarissa [id number] Com samantha [id number] Health 2017-03-05 2017-03-05 [facility] Encount er/ Legacy 00:00:00 00:00:00 Visit Clarissa [id number] Com samantha [id number] ty Health 2017-02-27 2017-02-27 Office [facility] Encount er/ Legacy 00:00:00 00:00:00 Visit Clarissa [id number] Com samantha 364172 ty Health 2017-02-23 2017-02-23 Office [facility] Legacy 00:00:00 00:00:00 Visit Clarissa [id number] Com samantha [id number] ty Health 2017-01-30 2017-01-30 Office [facility] Encount er/ Legacy 00:00:00 00:00:00 Visit Clarissa [id number] Com samantha 981356 ty Health 2017-01-29 2017-01-29 Office [facility] Encount er/ Legacy 00:00:00 00:00:00 Visit Clarissa [id number] Com samantha 724251 ty Health 2016-12-20 2016-12-20 Office [facility]/ Legacy 00:00:00 00:00:00 Visit Clarissa [id number] Com samantha 913892 ty Health 2016-12-19 2016-12-19 Office Eron [facility] Encount er/ Legacy 00:00:00 00:00:00 Visit Clarissa [id number] Com samantha 719105 ty Health 2016-12-16 2016-12-16 Office Brayden [facility] Encounter/ Legacy 00:00:00 00:00:00 Visit Kate [id number] Com samantha 901554 ty Health 2016-12-16 2016-12-16 Office Brayden [facility] Encounter/ Legacy 00:00:00 00:00:00 Visit Kate [id number] Com samantha 584298 ty Health 2016-12-16 2016-12-16 Office Kate Owen [facility] Enco unter/ Legacy 00:00:00 00:00:00 Visit Shikha Felton [id number] Communi 493139 ty Health 2016-10-15 2016-10-15 Office Clarissa Maldonado [facility] Encounter/ Legacy 00:00:00 00:00:00 Visit CarlaKiarra ornelas [id number] [facility] Alexandria Palma [id number] [facility] 2016-08-14 2016-08-14 Office Joel [facility] Encount er/ Legacy 00:00:00 00:00:00 Visit Clarissa [id number] Com samantha [id number] [facility] 2016-08-14 2016-08-14 Office Clarissa Maldonado [facility] Encounter/ Legacy 00:00:00 00:00:00 Visit Aura Perry [id number] [facility] 934630 Health 2016-07-27 2016-07-27 Outpatient [facility] [id number] [place] 11:29:47 11:29:47 Health 2016-07-27 2016-07-27 Outpatient [facility] [id number] Malik 09:10:43 09:10:43 Health 2016-07-27 2016-07-27 Outpatient [facility] [id number] [place] 00:00:00 00:00:00 Health 2016-06-30 2016-06-30 Office Radha Tom [facility] Encounter/ Legacy 00:00:00 00:00:00 Visit Clarissa Maldonado [id number] [facility] Sabrina Boateng [id number] 0 [facility] 2016-06-30 2016-06-30 Office [facility] Encounte r/ Legacy 00:00:00 00:00:00 Visit Sabrina [id number] Co mmuni [id number] [facility] 2016-06-16 2016-06-16 Office Joel [facility] Encount er/ Legacy 00:00:00 00:00:00 Visit Clarissa [id number] Com samantha [id number] Health 2016-06-16 2016-06-16 Office [facility] Encount er/ Legacy 00:00:00 00:00:00 Visit Clarissa [id number] Com samantha [id number] Health 2016-06-16 2016-06-16 Office [facility] Encount er/ Legacy 00:00:00 00:00:00 Visit Clarissa [id number] Com samantha [id number] [facility] 2016-06-16 2016-06-16 Office Clarissa Maldonado [facility] Encounter/ Legacy 00:00:00 00:00:00 Visit Napoleon Ramirez [id number] Communi [id number] [facility] 2016-06-16 2016-06-16 Office Joel [facility] Encount er/ Legacy 00:00:00 00:00:00 Visit Clarissa [id number] [facility] samantha [id number] [facility] 2016-06-16 2016-06-16 Office Clarissa Maldonado [facility] Encounter/ Legacy 00:00:00 00:00:00 Visit NegroRadha toscano [id number] [facility] Napoleon Ramirez [id number] [facility] 2016-05-27 2016-05-27 Outpatient [facility] [id number] [place] 12:22:18 12:22:18 Health 2016-03-09 2016-03-09 Outpatient [facility] [id number] [place] 10:29:48 10:29:48 Health Results Test Description Test Time Test Comments Results Result Comments Source OPHTHALMOLOGY RETINAL SCAN 2022-05-18 13:55:20 Test Item Value Reference Range Interpretation Comme nts RETINAL SCAN-FINAL RESULT (test code = ALERT A 64706) Right Diabetic Retinopathy (test code = Mild A 689277) Right Macular Edema (test code = 47023) None Right Other Suspected Conditions (test None code = 27445) Right Image Quality (test code = 29941) Gradable Image Left Diabetic Retinopathy (test code = Mild A 70065) Left Macular Edema (test code = 07881) None Left Other Suspected Conditions (test None code = 74463) Left Image Quality (test code = 37463) Gradable Image DANIELA (test code = DANIELA) Retinal Study Result for ROSIO MERCADO, la 51 y/o, F (: 1970, )presented to [facility] on 05-18-2022 for a retinal imaging study of the left and right eyes. Based on the findings of the study, the following is recommended for ROSIO Arreolafrancisco Pathology Found: Please advise the patient to return for another scan in 1 year. Interpreting Provider's Comments: No comments provided Right eye findings: Diabetic Retinopathy: MildNegative for Macular Edema Left eye findings: Diabetic Retinopathy: MildNegative for Macular Edema This result was electronically signed by Pollo Mendosa MD, , Taxonomy: [id number] on 05-18-2022 18:55 UTC. NOTE: Any pathology noted on this diabetic retinal evaluation should be confirmed by an appropriate ophthalmic examination. Lab Interpretation (test code = 61700-6) Abnormal [facility] [id number] 13:55:20 Test Item Value Reference Range Interpretation Comments RETINAL SCAN-FINAL ALERT A RESULT (test code = 08422) Right Diabetic Mild A Retinopathy (test code = 837709) Right Macular Edema None (test code = 01149) Right Other Suspected None Conditions (test code = 32767) Right Image Quality Gradable Image (test code = 25321) Left Diabetic Mild A Retinopathy (test code = 17431) Left Macular Edema None (test code = 38007) Left Other Suspected None Conditions (test code = 87264) Left Image Quality Gradable Image (test code = 70591) DANIELA (test code = DANIELA) Retinal Study Result for ROSIO MERCADO, la 51 y/o, F (: 1970, )presented to [facility] on 05-18-2022 for a retinal imaging study of the left and right eyes. Based on the findings of the study, the following is recommended for ROSIO MERCADOMild Pathology Found: Please advise the patient to return for another scan in 1 year. Interpreting Provider's Comments: No comments provided Right eye findings: Diabetic Retinopathy: MildNegative for Macular Edema Left eye findings: Diabetic Retinopathy: MildNegative for Macular Edema This result was electronically signed by Pollo Mendosa MD, , Taxonomy: [id number] on 05-18-2022 18:55 UTC. NOTE: Any pathology noted on this diabetic retinal evaluation should be confirmed by an appropriate ophthalmic examination. Lab Interpretation Abnormal (test code = 31438-0) [facility] [id number] 13:55:20 Test Item Value Reference Range Interpretation Comments RETINAL SCAN-FINAL ALERT A RESULT (test code = 89495) Right Diabetic Mild A Retinopathy (test code = 937419) Right Macular Edema None (test code = 68643) Right Other Suspected None Conditions (test code = 26980) Right Image Quality Gradable Image (test code = 79640) Left Diabetic Mild A Retinopathy (test code = 32966) Left Macular Edema None (test code = 74580) Left Other Suspected None Conditions (test code = 50533) Left Image Quality Gradable Image (test code = 65473) DANIELA (test code = DANIELA) Retinal Study Result for la LARA 51 y/o, F (: 1970, )presented to [facility] on 05-18-2022 for a retinal imaging study [...] signed by Pollo Mendosa MD, , Taxonomy: [id number] on 05-18-2022 18:55 UTC. NOTE: Any pathology noted on this diabetic retinal evaluation should be confirmed by an appropriate ophthalmic examination. Lab Interpretation Abnormal (test code = 32276-3) [facility] RETINAL [id number] 13:55:20 Test Item Value Reference Range Interpretation Comments RETINAL SCAN-FINAL ALERT A RESULT (test code = 30875) Right Diabetic Mild A Retinopathy (test code = 346985) Right Macular Edema None (test code = 39728) Right Other Suspected None Conditions (test code = 60412) Right Image Quality Gradable Image (test code = 09965) Left Diabetic Mild A Retinopathy (test code = 37510) Left Macular Edema None (test code = 29239) Left Other Suspected None Conditions (test code = 32605) Left Image Quality Gradable Image (test code = 68822) DANIELA (test code = DANIELA) Retinal Study Result for la LARA 51 y/o, F (: 1970, )presented to [facility] on 05-18-2022 for a retinal imaging study [...] signed by Pollo Mendosa MD, , Taxonomy: [id number] on 05-18-2022 18:55 UTC. NOTE: Any pathology noted on this diabetic retinal evaluation should be confirmed by an appropriate ophthalmic examination. Lab Interpretation Abnormal (test code = 59797-3) [facility] [id number] 12:27:55 Test Item Value Reference Range Interpretation Comments LVOT SV (test code 88.9 cm3 = 5463314904) LVOT SI (test code 46.83 ml/m2 = 65547539) LV EDV 2D (test 104.45 mL code = 3165858) LV ESV 2D (test 33.89 mL code = 9953928) LV ESV index 2D 18.22 ml/m2 (test code = 3028518660) LV EDV index 2D 56.14 ml/m2 (test code = 2831269270) IVSd (test code = 1.12 cm 0.6-0.9 2697697700) LVPWd (test code = 1.09 cm 1578233077) LVIDd (test code = 4.7 cm 3.8-5.2 8518524809) LVIDd index (test 25.5 ml/m2 2.3-3.1 code = 75240966) LVIDs (test code = 3.0 cm 2.2-3.5 9243223643) LVIDs index (test 15.9 ml/m2 1.3-2.3 code = 07830608) FS % (test code = 36.2 % See_Comment [Automate d [id number]) message] The system which generated this result transmitted reference range : >18%. The reference range was not used to interpret this result as normal/abnormal . RWT (test code = 0.5 See_Comment [Automated [id number]) message] The system which generated this result transmitted reference range : <=0.42. The reference range was not used to interpret this result as normal/abnormal . LVOT diam (test 2.2 cm code = 0650937785) LVOT area (test 3.80 cm2 code = 6494403660) LV mass (linear 192.2 g 67-162 method) (test code = 2999629912) LVMI (2D) (test 103.3 g/m2 44-88 code = 9135216998) MV E zev (test 83.06 cm/s code = 8301971962) MV A zev (test 84.36 cm/s code = 3743184386) MV E/A ratio (test 1.0 code = 2978869691) E/e' average (test 9.0 <14 code = 7699773709) LVOT peak zev 1.25 m/s (test code = 4925238886) LVOT mean grad 2.5 mmHg (test code = 3880049407) LVOT pk grad rest 6 mmHg (test code = 8443474002) LA AP dimension 3.2 cm <3.8 (ES) (test code = 4763943361) LA/Ao ratio (test 0.565397370397785 code = 7567824665) LVOT peak grad 6.2 mmHg (test code = 1391361651) LVOT VTI (test 23.4 cm code = 3974559908) LVOT SV index 46.8 mL/m2 (test code = 8985451603) LV RWT 2D (test 46.840062331847704 code = 1965644411) LV mass size 1 192.2 cm (test code = 6500781823) LVPWd (test code = 10.9 cm 0.6-0.9 8843302573) IVSd 2D (test code 11.414109983737962 = 8313465) cm Sinuses of 3.1 cm 3.6-3.6 Valsalva (test code = 3001526774) Sinus of Valsalva 31.14 cm (test code = 7931280163) RVOT VTI (test 20.5 cm code = 2676249095) TAPSE (test code = 2.9 cm See_Comment [Automat ed [id number]) message] The system which generated this result transmitted reference range : >=1.7. The reference range was not used to interpret this result as normal/abnormal . IRIS (2D biplane) 15.529 mL/m2 9-33 (test code = 6854720668) PV mean grad (test 2.1 mmHg code = 2939669677) PV peak zev (test 95.92 cm/s code = 6625354879) PV peak grad (test 3.7 mmHg code = 0390791803) PV VTI (test code 21.401155613245871 = 2150769) cm RVOT mn grad (test 1.088435040649811 mmHg code = 3461644246) RVOT pk grad (test 3.2 mmHg code = 3687640768) PV mean zev (test 0.07 cm/s code = 1716252206) RVOT pk zev (test 0.90 mm/s code = 3950891762) [id number] (test 15.5 [id number] code = 4345362763) AV EROA cont eq 2.96 cm2 (test code = 6868130642) AV peak zev (test 1.47 m/s code = 0845621087) AV peak grad (test 8.6 mmHg code = 5015992699) AV mean grad (test 4.1 mmHg code = 3557218230) AV mean zev (test 0.9 m/sec code = 9753573419) AV VTI (test code 29.4 cm = 2118220216) RAUL VTI index 1.59 cm2/m2 (test code = 3344234120) RAUL VTI (test code 2.96 cm2 = 2144169558) RAUL peak zev (test 3.16 cm2 code = 6161146140) AV Doppler zev 0.85 index pk zev (test code = 9336295236) AV Doppler zev 0.80 index VTI (test code = 6611334661) AV zev ratio (test 0.85 AVRATIO code = 6849395805) A2CEF (test code = 66.7 % 2639068501) LV ESV index A2C 15.76 ml/m2 (test code = 7744488392) LV ESV A2C (test 29.32 mL code = 1635221045) LV EDV index A2C 47.33 ml/m2 (test code = 0576081554) Radiology Study observation (narrative) (test code = 25184-5) DANIELA (test code = DANIELA) Left Ventricle: [...] 1.00The left ventricular wall motion is normal. [facility] qnjqvlph1470-73-78 12:27:55 Test Item Value Reference Range Interpretation Comments LVOT SV (test code 88.9 cm3 = 5134318108) LVOT SI (test code 46.83 ml/m2 = 50338377) LV EDV 2D (test 104.45 mL code = 4033457) LV ESV 2D (test 33.89 mL code = 6547540) LV ESV index 2D 18.22 ml/m2 (test code = 4728145483) LV EDV index 2D 56.14 ml/m2 (test code = 8627689900) IVSd (test code = 1.12 cm 0.6-0.9 9941083054) LVPWd (test code = 1.09 cm 8972225952) LVIDd (test code = 4.7 cm 3.8-5.2 5905556942) LVIDd index (test 25.5 ml/m2 2.3-3.1 code = 50193680) LVIDs (test code = 3.0 cm 2.2-3.5 1025726941) LVIDs index (test 15.9 ml/m2 1.3-2.3 code = 47971225) FS % (test code = 36.2 % See_Comment [Automate d 2689453449) message] The system which generated this result transmitted reference range : >18%. The reference range was not used to interpret this result as normal/abnormal . RWT (test code = 0.5 See_Comment [Automated 3154987339) message] The system which generated this result transmitted reference range : <=0.42. The reference range was not used to interpret this result as normal/abnormal . LVOT diam (test 2.2 cm code = 4077477484) LVOT area (test 3.80 cm2 code = 1922067703) LV mass (linear 192.2 g 67-162 method) (test code = 0493212822) LVMI (2D) (test 103.3 g/m2 44-88 code = 1843322082) MV E zev (test 83.06 cm/s code = 5636646726) MV A zev (test 84.36 cm/s code = 0087354561) MV E/A ratio (test 1.0 code = 0267027182) E/e' average (test 9.0 <14 code = 9801198326) LVOT peak zev 1.25 m/s (test code = 0661449978) LVOT mean grad 2.5 mmHg (test code = 6914182618) LVOT pk grad rest 6 mmHg (test code = 9898263300) LA AP dimension 3.2 cm <3.8 (ES) (test code = 7891282438) LA/Ao ratio (test 0.998726859389246 code = 1278861047) LVOT peak grad 6.2 mmHg (test code = 1916375540) LVOT VTI (test 23.4 cm code = 2754642482) LVOT SV index 46.8 mL/m2 (test code = 6402330099) LV RWT 2D (test 46.892623584086421 code = 7801052295) LV mass size 1 192.2 cm (test code = 4053411268) LVPWd (test code = 10.9 cm 0.6-0.9 1035748312) IVSd 2D (test code 11.081211956651917 = 0083429) cm Sinuses of 3.1 cm 3.6-3.6 Valsalva (test code = 0240245521) Sinus of Valsalva 31.14 cm (test code = 4688210385) RVOT VTI (test 20.5 cm code = 5890416130) TAPSE (test code = 2.9 cm See_Comment [Automat ed 8798011671) message] The system which generated this result transmitted reference range : >=1.7. The reference range was not used to interpret this result as normal/abnormal . IRIS (2D biplane) 15.529 mL/m2 9-33 (test code = 1769678886) PV mean grad (test 2.1 mmHg code = 6571478974) PV peak zev (test 95.92 cm/s code = 8180976423) PV peak grad (test 3.7 mmHg code = 4780460706) PV VTI (test code 21.354312801732611 = 8852282) cm RVOT mn grad (test 1.717585729023178 mmHg code = 3204900508) RVOT pk grad (test 3.2 mmHg code = 7046696367) PV mean zev (test 0.07 cm/s code = 4001665794) RVOT pk zev (test 0.90 mm/s code = 9737694950) [id number] (test 15.5 AY5HOFYLNZ code = 7289057675) AV EROA cont eq 2.96 cm2 (test code = 6647451750) AV peak zev (test 1.47 m/s code = 3830032715) AV peak grad (test 8.6 mmHg code = 1993856991) AV mean grad (test 4.1 mmHg code = 9760566487) AV mean zev (test 0.9 m/sec code = 5536549245) AV VTI (test code 29.4 cm = 7753457204) RAUL VTI index 1.59 cm2/m2 (test code = 1040387857) RAUL VTI (test code 2.96 cm2 = 4895362468) RAUL peak zev (test 3.16 cm2 code = 5053696197) AV Doppler zev 0.85 index pk zev (test code = 5694196824) AV Doppler zev 0.80 index VTI (test code = 4794722330) AV zev ratio (test 0.85 AVRATIO code = 6669891635) A2CEF (test code = 66.7 % 8200189768) LV ESV index A2C 15.76 ml/m2 (test code = 9044978633) LV ESV A2C (test 29.32 mL code = 7212842222) LV EDV index A2C 47.33 ml/m2 (test code = 2097693865) Radiology Study observation (narrative) (test code = 19401-2) DANIELA (test code = DANIELA) Left Ventricle: [...] 1.00The left ventricular wall motion is normal. [place] [address]LqlrvlPDW5002-72-71 15:41:1012 LEAD EKG FOR [facility] Test Date: 0480-47-95Uwv Name: [facility] Department: 5520Patient ID: [id number] Room: Gender: F Bone Crusher: [id number]: 1970 Requested By: NATALI SIDDIQUI Order Number: [id number] Reading MD: Lenny Farooq MeasurementsIntervals Gary Rate: 70 P: 61PR: 139 QRS: -28QRSD: 101 T: 45QT: 396 QTc: 416 Interpretive StatementsSINUS RHYTHMBORDERLINE LEFT AXIS DEVIATION [QRS AXIS < -20]VOLTAGE CRITERIA FOR LVH [MEETS CRITERIA IN ONE OF: R(aVL), S(V1), R(V5),R(V5/V6)+S(V1)]Electronically Signed On 02-04-2022 14:37:10 CDT by Lenny Jeter DyxtlzMUC0293-63-64 15:41:1012 LEAD EKG FOR [facility] Test Date: 2858-07-73Xia Name: [facility] Department: 5520Patient ID: [id number] Room: Gender: F Bone Crusher: [id number]: 1970 Requested By: JOE Order Number: [id number] Reading MD: Lenny Farooq MeasurementsIntervals Gary Rate: 70 P: 61PR: 139 QRS: -28QRSD: 101 T: 45QT: 396 QTc: 416 Interpretive StatementsSINUS RHYTHMBORDERLINE LEFT AXIS DEVIATION [QRS AXIS < -20]VOLTAGE CRITERIA FOR LVH [MEETS CRITERIA IN ONE OF: R(aVL), S(V1), R(V5),R(V5/V6)+S(V1)]Electronically Signed On 02-04-2022 14:37:10 CDT by [place] [id number] 15:41:1012 LEAD EKG FOR [facility] Test Date: 2824-85-14Gli Name: [facility] Department: 5520Patient ID: [id number] Room: Gender: F Bone Crusher: [id number]: 1970 Requested By: JOE Order Number: [id number] Reading MD: Lenny Farooq MeasurementsIntervals Gary Rate: 70 P: 61PR: 139 QRS: -28QRSD: 101 T: 45QT: 396 QTc: 416 Interpretive StatementsSINUS RHYTHMBORDERLINE LEFT AXIS DEVIATION [QRS AXIS < -20]VOLTAGE CRITERIA FOR LVH [MEETS CRITERIA IN ONE OF: R(aVL), S(V1), R(V5),R(V5/V6)+S(V1)]Electronically Signed On 02-04-2022 14:37:10 CDT by [facility] [place] [address]JofaclVGB2322-33-64 15:41:1012 LEAD EKG FOR [facility] Test Date: 3306-29-78Rvh Name: [facility] Department: 5520Patient ID: [id number] Room: Gender: F Bone Crusher: [id number]: 1970 Requested By: NATALI SIDDIQUI Order Number: [id number] Reading MD: Lenny Farooq MeasurementsIntervals Gary Rate: 70 P: 61PR: 139 QRS: -28QRSD: 101 T: 45QT: 396 QTc: 416 Interpretive StatementsSINUS RHYTHMBORDERLINE LEFT AXIS DEVIATION [QRS AXIS < -20]VOLTAGE CRITERIA FOR LVH [MEETS CRITERIA IN ONE OF: R(aVL), S(V1), R(V5),R(V5/V6)+S(V1)]Electronically Signed On 02-04-2022 14:37:10 CDT by Lenny RoamlerrandolphInView TechnologyColeridge UomsosTPU2116-56-06 15:41:1012 LEAD EKG FOR [facility] Test Date: 1607-14-82Rng Name: ROSIO MERCADO Department: 5520Patient ID: [id number] Room: Gender: F Bone Crusher: [id number]: 1970 Requested By: JOE Order Number: [id number] Reading MD: Lenny Farooq MeasurementsIntervals Gary Rate: 70 P: 61PR: 139 QRS: -28QRSD: 101 T: 45QT: 396 QTc: 416 Interpretive StatementsSINUS RHYTHMBORDERLINE LEFT AXIS DEVIATION [QRS AXIS < -20]VOLTAGE CRITERIA FOR LVH [MEETS CRITERIA IN ONE OF: R(aVL), S(V1), R(V5),R(V5/V6)+S(V1)]Electronically Signed On 02-04-2022 14:37:10 CDT by Lenny CespedesBluffton HospitalSpectralCast GLUCOSE POC docked kgpprk0763-44-49 09:32:13 Test Item Value Reference Range Interpretation Comments Glucose POC (test code = 468 mg/dL 74-106 HH >40 0 mg/dL 60351772) Physician Notif ied Lab Interpretation (test Abnormal code = 12058-1) [facility] GLUCOSE POC docked [id number] 09:32:13 Test Item Value Reference Range Interpretation Comments Glucose POC (test code = 468 mg/dL 74-106 HH >40 0 mg/dL 71276094) Physician Notif ied Lab Interpretation (test Abnormal code = 17912-0) [facility] GLUCOSE POC docked [id number] 09:32:13 Test Item Value Reference Range Interpretation Comments Glucose POC (test code = 468 mg/dL 74-106 HH >40 0 mg/dL 86193709) Physician Notif ied Lab Interpretation (test Abnormal code = 41221-8) [facility] GLUCOSE POC docked ofeyje2831-76-72 09:32:13 Test Item Value Reference Range Interpretation Comments Glucose POC (test code = 468 mg/dL 74-106 HH >40 0 mg/dL 26007110) Physician Notif ied Lab Interpretation (test Abnormal code = 55824-9) [facility] GLUCOSE POC docked [id number] 09:32:13 Test Item Value Reference Range Interpretation Comments Glucose POC (test code = 468 mg/dL 74-106 HH >40 0 mg/dL 44141286) Physician Notif ied Lab Interpretation (test Abnormal code = 57880-2) [facility] URINE DIPSTICK, WITHOUT [id number] 00:00:00 Test Item Value Reference Range Interpretation Comments Color POC (test code = Yellow See_Comment [Aut omated message] 56617) The system [employer] generated this result transmit tricia reference range : - - -. The referenc e range was not u sed to interpret th is result as normal/abnormal . Clarity POC (test code Clear See_Comment [Aut omated message] = 13604) The system [employer] generated this result transmit tricia reference range : - - -. The referenc e range was not u sed to interpret th is result as normal/abnormal . Glucose POC (test code 3+ Negative - Negative = 19168) Bilirubin POC (test Negative Negative - Negative code = 11376) Ketone POC (test code Negative Negative - Negative = 77150) [place] POC (test 1.015 1.005-1.030 code = 8156) Blood POC (test code = Trace Negative - Negative 11664) pH POC (test code = 6.0 5.0-7.0 08697) Protein POC (test code Negative Negative - Negative = 33277) Urobilinogen POC (test <1.0 0.2-1.0 code = 49364) Nitrate POC (test code Negative Negative - Negative = 76259) Leukocyte POC (test Negative Negative - Negative code = 07918) [facility] RAPID [id number] 00:00:00 Test Item Value Reference Range Interpretation Comments Rapid HIV Result (test code = 34950) Negative Rapid HIV Control (test code = Pass 38678) [facility] URINE DIPSTICK, WITHOUT [id number] 00:00:00 Test Item Value Reference Range Interpretation Comments Color POC (test code = Yellow See_Comment [Aut omated message] 85981) The system [employer] generated this result transmit tricia reference range : - - -. The referenc e range was not u sed to interpret th is result as normal/abnormal . Clarity POC (test code Clear See_Comment [Aut omated message] = 64927) The system [employer] generated this result transmit tricia reference range : - - -. The referenc e range was not u sed to interpret th is result as normal/abnormal . Glucose POC (test code 3+ Negative - Negative = 05739) Bilirubin POC (test Negative Negative - Negative code = 92290) Ketone POC (test code Negative Negative - Negative = 80730) [place] POC (test 1.015 1.005-1.030 code = 8156) Blood POC (test code = Trace Negative - Negative 47948) pH POC (test code = 6.0 5.0-7.0 17775) Protein POC (test code Negative Negative - Negative = 99757) Urobilinogen POC (test <1.0 0.2-1.0 code = 02379) Nitrate POC (test code Negative Negative - Negative = 49608) Leukocyte POC (test Negative Negative - Negative code = 19045) [facility] RAPID [id number] 00:00:00 Test Item Value Reference Range Interpretation Comments Rapid HIV Result (test code = 37908) Negative Rapid HIV Control (test code = Pass 54251) [facility] URINE DIPSTICK, WITHOUT [id number] 00:00:00 Test Item Value Reference Range Interpretation Comments Color POC (test code = Yellow See_Comment [Aut omated message] 14410) The system [employer] generated this result transmit tricia reference range : - - -. The referenc e range was not u sed to interpret th is result as normal/abnormal . Clarity POC (test code Clear See_Comment [Aut omated message] = 20417) The system [employer] generated this result transmit tricia reference range : - - -. The referenc e range was not u sed to interpret th is result as normal/abnormal . Glucose POC (test code 3+ Negative - Negative = 65969) Bilirubin POC (test Negative Negative - Negative code = 59112) Ketone POC (test code Negative Negative - Negative = 00435) [place] POC (test 1.015 1.005-1.030 code = 8156) Blood POC (test code = Trace Negative - Negative 46053) pH POC (test code = 6.0 5.0-7.0 93342) Protein POC (test code Negative Negative - Negative = 46529) Urobilinogen POC (test <1.0 0.2-1.0 code = 66528) Nitrate POC (test code Negative Negative - Negative = 63764) Leukocyte POC (test Negative Negative - Negative code = 89718) [facility] RAPID [id number] 00:00:00 Test Item Value Reference Range Interpretation Comments Rapid HIV Result (test code = 36732) Negative Rapid HIV Control (test code = Pass 19324) [facility] URINE DIPSTICK, WITHOUT [id number] 00:00:00 Test Item Value Reference Range Interpretation Comments Color POC (test code = Yellow See_Comment [Aut omated message] 49299) The system [employer] generated this result transmit tricia reference range : - - -. The referenc e range was not u sed to interpret th is result as normal/abnormal . Clarity POC (test code Clear See_Comment [Aut omated message] = 27129) The system [employer] generated this result transmit tricia reference range : - - -. The referenc e range was not u sed to interpret th is result as normal/abnormal . Glucose POC (test code 3+ Negative - Negative = 37671) Bilirubin POC (test Negative Negative - Negative code = 62782) Ketone POC (test code Negative Negative - Negative = 96409) [place] POC (test 1.015 1.005-1.030 code = 8156) Blood POC (test code = Trace Negative - Negative 26494) pH POC (test code = 6.0 5.0-7.0 46254) Protein POC (test code Negative Negative - Negative = 64652) Urobilinogen POC (test <1.0 0.2-1.0 code = 10311) Nitrate POC (test code Negative Negative - Negative = 61519) Leukocyte POC (test Negative Negative - Negative code = 07363) [facility] RAPID [id number] 00:00:00 Test Item Value Reference Range Interpretation Comments Rapid HIV Result (test code = 40863) Negative Rapid HIV Control (test code = Pass 23503) [facility] URINE DIPSTICK, WITHOUT [id number] 00:00:00 Test Item Value Reference Range Interpretation Comments Color POC (test code = Yellow See_Comment [Aut omated message] 99443) The system [employer] generated this result transmit tricia reference range : - - -. The referenc e range was not u sed to interpret th is result as normal/abnormal . Clarity POC (test code Clear See_Comment [Aut omated message] = 26929) The system [employer] generated this result transmit tricia reference range : - - -. The referenc e range was not u sed to interpret th is result as normal/abnormal . Glucose POC (test code 3+ Negative - Negative = 91589) Bilirubin POC (test Negative Negative - Negative code = 67314) Ketone POC (test code Negative Negative - Negative = 17117) [place] POC (test 1.015 1.005-1.030 code = 8156) Blood POC (test code = Trace Negative - Negative 42319) pH POC (test code = 6.0 5.0-7.0 73409) Protein POC (test code Negative Negative - Negative = 50536) Urobilinogen POC (test <1.0 0.2-1.0 code = 06481) Nitrate POC (test code Negative Negative - Negative = 21234) Leukocyte POC (test Negative Negative - Negative code = 68213) [facility] RAPID [id number] 00:00:00 Test Item Value Reference Range Interpretation Comments Rapid HIV Result (test code = 76666) Negative Rapid HIV Control (test code = Pass 82515) [facility], as % of total folymysrfg8857-24-74 14:57:00 Test Item Value Reference Range Interpretation Comments hemoglobin A1C, blood, as % of total 10.9 % 4.8-5.6 H hemoglobin (test code = 4548-4) [facility], [id number] 14:57:00 Test Item Value Reference Range Interpretation Comments LDL cholesterol, serum (test TRIGHI mg/dL 0-99 code = 9-1) [facility] Cityvery low density itwrizlcpavz5067-40-86 14:57:00 Test Item Value Reference Range Interpretation Comments very low density lipoproteins VLDLCH mg/dL 5-40 (test code = 1-7) [facility] CityHDL cholesterol, [id number] 14:57:00 Test Item Value Reference Range Interpretation Comments HDL cholesterol, serum (test code = 55 mg/dL >39 2084-9) [facility] Citytriglyceride, serum, [id number] 14:57:00 Test Item Value Reference Range Interpretation Comments triglyceride, serum, fasting (test 527 mg/dL 0-149 H code = 2571-8) [facility] Citycholesterol, [id number] 14:57:00 Test Item Value Reference Range Interpretation Comments cholesterol, serum (test code = 261 mg/dL 100-199 H 2093-3) [facility] Cityalanine aminotransferase (SGPT), [id number] 14:57:00 Test Item Value Reference Range Interpretation Comments alanine aminotransferase (SGPT), serum 25 1/L 0-32 (test code = 1742-6) [facility] Cityaspartate aminotransferase (SGOT), [id number] 14:57:00 Test Item Value Reference Range Interpretation Comments aspartate aminotransferase (SGOT), 19 1/L 0-40 serum (test code = 1920-8) [facility] Cityalkaline phosphatase, [id number] 14:57:00 Test Item Value Reference Range Interpretation Comments alkaline phosphatase, serum (test code 99 1/L 39-117 = 1783-0) [facility] Citybilirubin, serum, [id number] 14:57:00 Test Item Value Reference Range Interpretation Comments bilirubin, serum, total (test code 0.3 mg/dL 0.0-1.2 = 1975-2) [facility] Cityalbumin/globulin ratio, [id number] 14:57:00 Test Item Value Reference Range Interpretation Comments albumin/globulin ratio, serum (test 1.7 1.2-2.2 code = 1759-0) [facility] Healthglobulin, [id number] 14:57:00 Test Item Value Reference Range Interpretation Comments globulin, serum (test code = 2336-6) 2.7 1.5-4.5 [facility] Healthalbumin, [id number] 14:57:00 Test Item Value Reference Range Interpretation Comments albumin, serum (test code = 1751-7) 4.5 g/dL 3.5-5.5 [facility] Cityprotein, total, [id number] 14:57:00 Test Item Value Reference Range Interpretation Comments protein, total, serum (test code = 7.2 g/dL 6.0-8.5 2885-2) [facility] Citycalcium, [id number] 14:57:00 Test Item Value Reference Range Interpretation Comments calcium, serum (test code = 10.8 mg/dL 8.7-10.2 H 1999-) [facility] Citycarbon dioxide, venous [id number] 14:57:00 Test Item Value Reference Range Interpretation Comments carbon dioxide, venous blood (test 24 mmol/L 20-29 code = 7-1) [facility] Healthchloride, [id number] 14:57:00 Test Item Value Reference Range Interpretation Comments chloride, serum (test code = 91 mmol/L 96-106 L 5-0) [facility] Citypotassium, [id number] 14:57:00 Test Item Value Reference Range Interpretation Comments potassium, serum (test code = 4.9 mmol/L 3.5-5.2 2823-3) [facility] Citysodium, [id number] 14:57:00 Test Item Value Reference Range Interpretation Comments sodium, serum (test code = 2951-2) 131 mmol/L 134-144 L [facility] Cityurea nitrogen/creatinine ratio, [id number] 14:57:00 Test Item Value Reference Range Interpretation Comments urea nitrogen/creatinine ratio, serum 13 9-23 (test code = 3097-3) [facility] HealtheGFR if Ypqzuwqt1433-45-44 14:57:00 Test Item Value Reference Range Interpretation Comments eGFR if 90 >59 (test code = 54766-3) mL/min/((173/100).m2) [facility] CityEstimated Glomerular Filtration Rate (calc)2018-07-04 14:57:00 Test Item Value Reference Range Interpretation Comments Estimated Glomerular 78 >59 Filtration Rate (calc) mL/min/((173/100).m2 (test code = 34650-8) ) [facility] Healthcreatinine, [id number] 14:57:00 Test Item Value Reference Range Interpretation Comments creatinine, serum (test code = 0.88 mg/dL 0.57-1.00 2160-0) [facility] Cityurea nitrogen, rldwo2010-71-12 14:57:00 Test Item Value Reference Range Interpretation Comments urea nitrogen, blood (test code = 11 mg/dL 6-24 3094-0) [facility] Cityblood glucose, iofzam8749-44-75 14:57:00 Test Item Value Reference Range Interpretation Comments blood glucose, random (test code = 520 mg/dL 65-99 2339-0) [facility] Cityimmature granulocytes, percentage of total cells, blood 2018-07-04 14:57:00 Test Item Value Reference Range Interpretation Comments immature granulocytes, percentage of 0 % total cells, blood (test code = 60788-2) [facility] Healthbasophil count, oayhsjys1560-53-27 14:57:00 Test Item Value Reference Range Interpretation Comments basophil count, absolute (test 0.1 x10E3/uL 0.0-0.2 code = 27686-5) [facility] HealthEosinophil Absolute Ymtrj3195-05-20 14:57:00 Test Item Value Reference Range Interpretation Comments Eosinophil Absolute Count (test 0.3 X10E3/UL 0.0-0.4 code = 84883-9) [facility] Citymonocyte count, blood, cskutjabd1288-86-65 14:57:00 Test Item Value Reference Range Interpretation Comments monocyte count, blood, automated 0.6 X10E3/UL 0.1-0.9 (test code = 742-7) [facility] Citylymphocyte count, blood, ozkpgdkmh7428-27-85 14:57:00 Test Item Value Reference Range Interpretation Comments lymphocyte count, blood, 3.4 X10E3/UL 0.7-3.1 H automated (test code = 731-0) [facility] CityAbsolute Ceymcpuvexi8491-85-05 14:57:00 Test Item Value Reference Range Interpretation Comments Absolute Neutrophils (test code 7.5 X10E3/UL 1.4-7.0 H = 98238-4) [facility] Citybasophils as percent of blood kxaqfnsocd9911-37-09 14:57:00 Test Item Value Reference Range Interpretation Comments basophils as percent of blood 1 % leukocytes (test code = 707-0) [facility] Healtheosinophils as percent of blood mspqtsainh7252-38-35 14:57:00 Test Item Value Reference Range Interpretation Comments eosinophils as percent of blood 3 % leukocytes (test code = 713-8) [facility] Healthmonocytes as percent of blood tmcqtjufkp7998-52-72 14:57:00 Test Item Value Reference Range Interpretation Comments monocytes as percent of blood 5 % leukocytes (test code = 5905-5) [facility] Citylymphocytes as percent of blood zakqgmbbvu4113-99-97 14:57:00 Test Item Value Reference Range Interpretation Comments lymphocytes as percent of blood 28 % leukocytes (test code = 736-9) [facility] Cityneutrophils as percent of blood gxqxuppain0802-67-33 14:57:00 Test Item Value Reference Range Interpretation Comments neutrophils as percent of blood 63 % leukocytes (test code = 770-8) [facility] Cityplatelet wgbbz4072-90-19 14:57:00 Test Item Value Reference Range Interpretation Comments platelet count (test code = 410 X10E3/UL 150-379 H 777-3) [facility] Cityred blood cell distribution gtmpt9935-89-86 14:57:00 Test Item Value Reference Range Interpretation Comments red blood cell distribution width 14.7 % 12.3-15.4 (test code = 788-0) [facility] corpuscular hemoglobin concentration, [id number] 14:57:00 Test Item Value Reference Range Interpretation Comments mean corpuscular hemoglobin 33.0 G/DL 31.5-35.7 concentration, RBC (test code = 786-4) [facility] corpuscular hemoglobin, [id number] 14:57:00 Test Item Value Reference Range Interpretation Comments mean corpuscular hemoglobin, RBC 29.1 pg 26.6-33.0 (test code = 785-6) [facility] [facility] corpuscular volume, [id number] 14:57:00 Test Item Value Reference Range Interpretation Comments mean corpuscular volume, RBC (test code 88 fL 79-97 = 787-2) [facility]ocrit, [id number] 14:57:00 Test Item Value Reference Range Interpretation Comments hematocrit, blood (test code = 4544-3) 41.2 % 34.0-46.6 [facility] Cityhemoglobin, [id number] 14:57:00 Test Item Value Reference Range Interpretation Comments hemoglobin, blood (test code = 13.6 g/dL 11.1-15.9 718-7) [facility] Cityerythrocyte (RBC) [id number] 14:57:00 Test Item Value Reference Range Interpretation Comments erythrocyte (RBC) count (test 4.67 X10E6/UL 3.77-5.28 code = 789-8) [facility] Cityleukocyte count, [id number] 14:57:00 Test Item Value Reference Range Interpretation Comments leukocyte count, blood (test 11.9 X10E3/UL 3.4-10.8 H code = 6690-2) [facility] CityNeisseria gonorrhoeae DNA [id number] 16:44:00 Test Item Value Reference Range Interpretation Comments Neisseria gonorrhoeae DNA probe NOT DETECTED NOT DETECTED N (test code = 77842-9) [facility] Citychlamydia DNA [id number] 16:44:00 Test Item Value Reference Range Interpretation Comments chlamydia DNA probe (test code = NOT DETECTED NOT DETECTED N 40665-9) [facility] Cityrapid plasma reagin antibody, [id number] 13:17:00 Test Item Value Reference Range Interpretation Comments rapid plasma reagin antibody, NON-REACTIVE NON-REACTIVE N serum (test code = 5291-0) [facility] Cityhemoglobin A1C, blood, as % of total ooxtzwmcjd9737-05-94 13:17:00 Test Item Value Reference Range Interpretation Comments hemoglobin A1C, blood, as 8.7 % OF TOTAL HGB <5.7 H % of total hemoglobin (test code = 4548-4) [facility] CityTSH (thyroid stimulating hormone) with reflex FT4 2017-07-30 13:17:00 Test Item Value Reference Range Interpretation Comments TSH (thyroid stimulating hormone) 1.30 mIU/L N with reflex FT4 (test code = 74619) [facility] CityHepatitis C Antibody, Signal to Egv-Wxr4511-69-02 13:17:00 Test Item Value Reference Range Interpretation Comments Hepatitis C Antibody, Signal to Cut-Off 0.01 <1.00 N (test code = 820484) [facility] Cityhepatitis C antibody, wltex4579-20-17 13:17:00 Test Item Value Reference Range Interpretation Comments hepatitis C antibody, serum NON-REACTIVE NON-REACTIVE N (test code = 5199-5) [facility] Healthbasophils as percent of blood dibskjbnoy3751-40-26 13:17:00 Test Item Value Reference Range Interpretation Comments basophils as percent of blood 0.9 % N leukocytes (test code = 707-0) [facility] Healtheosinophils as percent of blood eotmatafea9437-55-78 13:17:00 Test Item Value Reference Range Interpretation Comments eosinophils as percent of blood 3.1 % N leukocytes (test code = 714-6) [facility] Healthmonocytes as percent of blood tdlyihriqq3804-10-06 13:17:00 Test Item Value Reference Range Interpretation Comments monocytes as percent of blood 5.5 % N leukocytes (test code = 5905-5) [facility] Citylymphocytes as percent of blood dtbnnddcbd6370-58-58 13:17:00 Test Item Value Reference Range Interpretation Comments lymphocytes as percent of blood 23.6 % N leukocytes (test code = 736-9) [facility] Cityneutrophils as percent of blood gonzkvoqya5746-42-03 13:17:00 Test Item Value Reference Range Interpretation Comments neutrophils as percent of blood 66.9 % N leukocytes (test code = 770-8) [facility] Citybasophil count, fllapvgu4579-53-38 13:17:00 Test Item Value Reference Range Interpretation Comments basophil count, absolute (test 115 cells/uL 0-200 N code = 17898-2) [facility] CityAbsolute Eosinophil [id number] 13:17:00 Test Item Value Reference Range Interpretation Comments Absolute Eosinophil count (test 397 cells/mcL 15-500 N code = 31075-9) [facility] CityAbsolute Monocyte [id number] 13:17:00 Test Item Value Reference Range Interpretation Comments Absolute Monocyte count (test 704 cells/mcL 200-950 N code = 04833-4) [facility] Citylymphocytes, fzdypmyc4270-47-95 13:17:00 Test Item Value Reference Range Interpretation Comments lymphocytes, absolute (test 3021 CELLS/UL 850-3900 N code = 41845-6) [facility] CityAbsolute Neutrophil pyvul7423-08-31 13:17:00 Test Item Value Reference Range Interpretation Comments Absolute Neutrophil count 8563 cells/mcL 0526-8280 H (test code = 30892-6) [facility] platelet eyqjiq6099-19-18 13:17:00 Test Item Value Reference Range Interpretation Comments mean platelet volume (test code = 10.3 fL 7.5-12.5 N 776-5) [facility] Cityplatelet ymuik6436-29-45 13:17:00 Test Item Value Reference Range Interpretation Comments platelet count (test code = 445 THOUSAND/UL 140-400 H 777-3) [facility] Cityred blood cell distribution pfrew3313-51-81 13:17:00 Test Item Value Reference Range Interpretation Comments red blood cell distribution width 15.5 % 11.0-15.0 H (test code = 788-0) [facility] corpuscular hemoglobin concentration, [id number] 13:17:00 Test Item Value Reference Range Interpretation Comments mean corpuscular hemoglobin 32.1 G/DL 32.0-36.0 N concentration, RBC (test code = 786-4) [facility] corpuscular hemoglobin, [id number] 13:17:00 Test Item Value Reference Range Interpretation Comments mean corpuscular hemoglobin, RBC 25.3 pg 27.0-33.0 L (test code = 785-6) [facility] corpuscular volume, [id number] 13:17:00 Test Item Value Reference Range Interpretation Comments mean corpuscular volume, RBC (test 78.7 fL 80.0-100.0 L code = 787-2) [facility] Cityhematocrit, [id number] 13:17:00 Test Item Value Reference Range Interpretation Comments hematocrit, blood (test code = 4544-3) 35.8 % 35.0-45.0 N [facility] Cityhemoglobin, [id number] 13:17:00 Test Item Value Reference Range Interpretation Comments hemoglobin, blood (test code = 11.5 g/dL 11.7-15.5 L 718-7) [facility] Cityerythrocyte (RBC) ghhky8304-28-84 13:17:00 Test Item Value Reference Range Interpretation Comments erythrocyte (RBC) count (test 4.55 MILLION/UL 3.80-5.10 N code = 789-8) [facility] Cityleukocyte count, [id number] 13:17:00 Test Item Value Reference Range Interpretation Comments leukocyte count, blood (test 12.8 THOUSAND/UL 3.8-10.8 H code = 6690-2) [facility] Cityalanine aminotransferase (SGPT), ycegi0406-82-57 13:17:00 Test Item Value Reference Range Interpretation Comments alanine aminotransferase (SGPT), serum 16 1/L 6-29 N (test code = 1742-6) [facility] Cityaspartate aminotransferase (SGOT), wdrmw7314-81-05 13:17:00 Test Item Value Reference Range Interpretation Comments aspartate aminotransferase (SGOT), 14 1/L 10-35 N serum (test code = 1920-8) [facility] Cityalkaline phosphatase, [id number] 13:17:00 Test Item Value Reference Range Interpretation Comments alkaline phosphatase, serum (test code 72 1/L 33-115 N = 1783-0) [facility] Citybilirubin, serum, dzixu5396-80-24 13:17:00 Test Item Value Reference Range Interpretation Comments bilirubin, serum, total (test code 0.2 mg/dL 0.2-1.2 N = 1975-2) [facility] Cityalbumin/globulin ratio, lairt5042-53-18 13:17:00 Test Item Value Reference Range Interpretation Comments albumin/globulin ratio, serum 1.4 (calc) 1.0-2.5 N (test code = 1759-0) [facility] Cityglobulins, serum, [id number] 13:17:00 Test Item Value Reference Range Interpretation Comments globulins, serum, total (test 2.9 G/DL (CALC) 1.9-3.7 N code = 2336-6) [facility] Cityalbumin, gvwky7546-06-06 13:17:00 Test Item Value Reference Range Interpretation Comments albumin, serum (test code = 1751-7) 4.0 g/dL 3.6-5.1 N [facility] Cityprotein, total, ihloe8173-11-76 13:17:00 Test Item Value Reference Range Interpretation Comments protein, total, serum (test code = 6.9 g/dL 6.1-8.1 N 2885-2) [facility] Citycalcium, [id number] 13:17:00 Test Item Value Reference Range Interpretation Comments calcium, serum (test code = 1999-8) 9.8 mg/dL 8.6-10.2 N [facility] Citycarbon dioxide, venous mtxwm1655-18-14 13:17:00 Test Item Value Reference Range Interpretation Comments carbon dioxide, venous blood (test 22 mmol/L 20-31 N code = 2026-1) [facility] Citychloride, ialkf5143-85-90 13:17:00 Test Item Value Reference Range Interpretation Comments chloride, serum (test code = 103 mmol/L 98-110 N 2075-0) [facility] Citypotassium, pqrey5885-16-70 13:17:00 Test Item Value Reference Range Interpretation Comments potassium, serum (test code = 4.6 mmol/L 3.5-5.3 N 2823-3) [facility] Citysodium, qhmez4716-04-73 13:17:00 Test Item Value Reference Range Interpretation Comments sodium, serum (test code = 2951-2) 135 mmol/L 135-146 N [facility] Cityurea nitrogen/creatinine ratio, vwaxo1486-61-01 13:17:00 Test Item Value Reference Range Interpretation Comments urea NOT APPLICABLE (calc) 6-22 nitrogen/creatinine ratio, serum (test code = 3097-3) [facility] CityeGFR if Qgeltzek4768-95-67 13:17:00 Test Item Value Reference Range Interpretation Comments eGFR if 120 > OR = 60 N (test code = 36509-4) mL/min/((173/100).m2) [facility] CityEstimated Glomerular Filtration Rate (calc)2017-07-30 13:17:00 Test Item Value Reference Range Interpretation Comments Estimated Glomerular 104 > OR = 60 N Filtration Rate (calc) mL/min/((173/100).m2 (test code = 49654-3) ) [facility] Citycreatinine, [id number] 13:17:00 Test Item Value Reference Range Interpretation Comments creatinine, serum (test code = 0.69 mg/dL 0.50-1.10 N 2160-0) [facility] Cityurea nitrogen, wxlmc9389-83-55 13:17:00 Test Item Value Reference Range Interpretation Comments urea nitrogen, blood (test code = 10 mg/dL 7-25 N 3094-0) [facility] Cityblood glucose, [id number] 13:17:00 Test Item Value Reference Range Interpretation Comments blood glucose, random (test code = 180 mg/dL 65-99 H 2339-0) [facility] CityHIV-CMIA (Chemiluminescent Microparticle Immuno Assay) 2017-07-30 13:17:00 Test Item Value Reference Range Interpretation Comments HIV-CMIA (Chemiluminescent NON-REACTIVE NON-REACTIVE N Microparticle Immuno Assay) (test code = 811094) [facility] Healthcholesterol, non-HDL, [id number] 13:17:00 Test Item Value Reference Range Interpretation Comments cholesterol, non-HDL, total 176 MG/DL (CALC) <130 H (test code = 49580) [facility] Healthcholesterol/HDL ratio, serum, [id number] 13:17:00 Test Item Value Reference Range Interpretation Comments cholesterol/HDL ratio, serum, 4.7 (calc) <5.0 N percent (test code = 2404) [facility] CityLDL cholesterol, [id number] 13:17:00 Test Item Value Reference Range Interpretation Comments LDL cholesterol, serum (test 133 MG/DL (CALC) H code = 2089-1) [facility] Citytriglyceride, serum, luxgrtb3036-21-24 13:17:00 Test Item Value Reference Range Interpretation Comments triglyceride, serum, fasting (test 301 mg/dL <150 H code = 2571-8) [facility] CityHDL cholesterol, [id number] 13:17:00 Test Item Value Reference Range Interpretation Comments HDL cholesterol, serum (test code = 47 mg/dL >50 L 5-9) [facility] Citycholesterol, [id number] 13:17:00 Test Item Value Reference Range Interpretation Comments cholesterol, serum (test code = 223 mg/dL <200 H 3-3) [facility] Citythyroid stimulating hormone, yqauv0449-40-31 09:48:00 Test Item Value Reference Range Interpretation Comments thyroid stimulating hormone, 1.460 u[iU]/mL 0.450-4.500 serum (test code = 3016-3) [facility] Cityhemoglobin A1C, blood, as % of total sxztatguen8008-31-33 09:48:00 Test Item Value Reference Range Interpretation Comments hemoglobin A1C, blood, as % of total 9.4 % 4.8-5.6 H hemoglobin (test code = 4548-4) [facility] Citymicroalbumin/creatinine ratio, uhhkx6400-18-68 09:48:00 Test Item Value Reference Range Interpretation Comments microalbumin/creatinine 54.1 MG/G CREAT 0.0-30.0 H ratio, urine (test code = 56076-7) [facility] Citymicroalbumin/total urine tzqlrf3633-93-70 09:48:00 Test Item Value Reference Range Interpretation Comments microalbumin/total urine volume 15.9 mg/L (test code = 41659-7) [facility] Citycreatinine, random, aqafm4452-15-66 09:48:00 Test Item Value Reference Range Interpretation Comments creatinine, random, urine (test 29.4 mg/dL code = 2161-8) [facility] CityLDL cholesterol, srbks3457-05-20 09:48:00 Test Item Value Reference Range Interpretation Comments LDL cholesterol, serum (test code = 111 mg/dL 0-99 H 2088-1) [facility] Cityvery low density qhffhphrgdnx0913-44-99 09:48:00 Test Item Value Reference Range Interpretation Comments very low density lipoproteins (test 63 mg/dL 5-40 H code = 2091-7) [facility] CityHDL cholesterol, clcpj4910-85-28 09:48:00 Test Item Value Reference Range Interpretation Comments HDL cholesterol, serum (test code = 45 mg/dL >39 2084-9) [facility] Citytriglyceride, serum, lzlsvzj1947-47-88 09:48:00 Test Item Value Reference Range Interpretation Comments triglyceride, serum, fasting (test 313 mg/dL 0-149 H code = 2571-8) [facility] Citycholesterol, nurmc4335-53-06 09:48:00 Test Item Value Reference Range Interpretation Comments cholesterol, serum (test code = 219 mg/dL 100-199 H 2092-3) [facility] Cityalanine aminotransferase (SGPT), [id number] 09:48:00 Test Item Value Reference Range Interpretation Comments alanine aminotransferase (SGPT), serum 23 1/L 0-32 (test code = 1742-6) [facility] Cityaspartate aminotransferase (SGOT), [id number] 09:48:00 Test Item Value Reference Range Interpretation Comments aspartate aminotransferase (SGOT), 18 1/L 0-40 serum (test code = 1920-8) [facility] Cityalkaline phosphatase, [id number] 09:48:00 Test Item Value Reference Range Interpretation Comments alkaline phosphatase, serum (test code 86 1/L 39-117 = 1783-0) [facility] Healthbilirubin, serum, [id number] 09:48:00 Test Item Value Reference Range Interpretation Comments bilirubin, serum, total (test code <0.2 mg/dL 0.0-1.2 = 1975-2) [facility] Healthalbumin/globulin ratio, [id number] 09:48:00 Test Item Value Reference Range Interpretation Comments albumin/globulin ratio, serum (test 1.5 1.1-2.5 code = 1759-0) [facility] Healthglobulin, hlejy2026-95-02 09:48:00 Test Item Value Reference Range Interpretation Comments globulin, serum (test code = 2336-6) 2.9 1.5-4.5 [facility] Healthalbumin, [id number] 09:48:00 Test Item Value Reference Range Interpretation Comments albumin, serum (test code = 1751-7) 4.4 g/dL 3.5-5.5 [facility] Cityprotein, total, wmrdu8718-40-10 09:48:00 Test Item Value Reference Range Interpretation Comments protein, total, serum (test code = 7.3 g/dL 6.0-8.5 2885-2) [facility] Citycalcium, defah7134-03-10 09:48:00 Test Item Value Reference Range Interpretation Comments calcium, serum (test code = 10.0 mg/dL 8.7-10.2 1999-8) [facility] Citycarbon dioxide, venous faodl4992-36-56 09:48:00 Test Item Value Reference Range Interpretation Comments carbon dioxide, venous blood (test 19 mmol/L 18-29 code = 7-1) [facility] Citychloride, [id number] 09:48:00 Test Item Value Reference Range Interpretation Comments chloride, serum (test code = 95 mmol/L 97-106 L 2074-0) [facility] Citypotassium, uxpzf8063-62-97 09:48:00 Test Item Value Reference Range Interpretation Comments potassium, serum (test code = 4.8 mmol/L 3.5-5.2 2823-3) [facility] Healthsodium, wfhmm2645-63-42 09:48:00 Test Item Value Reference Range Interpretation Comments sodium, serum (test code = 2951-2) 132 mmol/L 136-144 L [facility] Cityurea nitrogen/creatinine ratio, [id number] 09:48:00 Test Item Value Reference Range Interpretation Comments urea nitrogen/creatinine ratio, serum 19 9-23 (test code = 3097-3) [facility] HealtheGFR if Svqsnchw9888-41-55 09:48:00 Test Item Value Reference Range Interpretation Comments eGFR if 111 >59 (test code = 71028-9) mL/min/((173/100).m2) [facility] CityEstimated Glomerular Filtration Rate (calc)2016-06-16 09:48:00 Test Item Value Reference Range Interpretation Comments Estimated Glomerular 96 >59 Filtration Rate (calc) mL/min/((173/100).m2 (test code = 58505-3) ) [facility] Citycreatinine, [id number] 09:48:00 Test Item Value Reference Range Interpretation Comments creatinine, serum (test code = 0.75 mg/dL 0.57-1.00 2160-0) [facility] Cityurea nitrogen, sslxk1160-26-17 09:48:00 Test Item Value Reference Range Interpretation Comments urea nitrogen, blood (test code = 14 mg/dL 6-24 3094-0) [facility] Cityblood glucose, gcdizm8010-43-86 09:48:00 Test Item Value Reference Range Interpretation Comments blood glucose, random (test code = 345 mg/dL 65-99 H 2339-0) [facility] Cityimmature granulocytes, percentage of total cells, blood 2016-06-16 09:48:00 Test Item Value Reference Range Interpretation Comments immature granulocytes, percentage of 0 % total cells, blood (test code = 95356-2) [facility] Citybasophil count, ktukxolo0338-35-02 09:48:00 Test Item Value Reference Range Interpretation Comments basophil count, absolute (test 0.1 x10E3/uL 0.0-0.2 code = 20651-2) [facility] HealthEosinophil Absolute Mzzps2500-67-09 09:48:00 Test Item Value Reference Range Interpretation Comments Eosinophil Absolute Count (test 0.4 X10E3/UL 0.0-0.4 code = 27728-9) [facility] Healthmonocyte count, blood, ksctevfga1483-79-59 09:48:00 Test Item Value Reference Range Interpretation Comments monocyte count, blood, automated 0.5 X10E3/UL 0.1-0.9 (test code = 742-7) [facility] Healthlymphocyte count, blood, rfzeohuuu1652-50-42 09:48:00 Test Item Value Reference Range Interpretation Comments lymphocyte count, blood, 3.3 X10E3/UL 0.7-3.1 H automated (test code = 731-0) [facility] HealthAbsolute Didbppuybvu4190-66-53 09:48:00 Test Item Value Reference Range Interpretation Comments Absolute Neutrophils (test code 7.2 X10E3/UL 1.4-7.0 H = 60256-1) [facility] Healthbasophils as percent of blood wfqlgghfnx5837-00-84 09:48:00 Test Item Value Reference Range Interpretation Comments basophils as percent of blood 1 % leukocytes (test code = 707-0) [facility] Healtheosinophils as percent of blood yvixbyojoe1156-34-04 09:48:00 Test Item Value Reference Range Interpretation Comments eosinophils as percent of blood 3 % leukocytes (test code = 713-8) [facility] Healthmonocytes as percent of blood zmekmokelg5571-15-19 09:48:00 Test Item Value Reference Range Interpretation Comments monocytes as percent of blood 4 % leukocytes (test code = 5905-5) [facility] Healthlymphocytes as percent of blood oneymmkjve4204-17-68 09:48:00 Test Item Value Reference Range Interpretation Comments lymphocytes as percent of blood 29 % leukocytes (test code = 736-9) [facility] Healthneutrophils as percent of blood ngtkmdypnp1232-72-41 09:48:00 Test Item Value Reference Range Interpretation Comments neutrophils as percent of blood 63 % leukocytes (test code = 770-8) [facility] Healthplatelet vaakj4519-54-72 09:48:00 Test Item Value Reference Range Interpretation Comments platelet count (test code = 377 X10E3/UL 150-379 777-3) [facility] Cityred blood cell distribution bflip8970-91-32 09:48:00 Test Item Value Reference Range Interpretation Comments red blood cell distribution width 14.5 % 12.3-15.4 (test code = 788-0) [facility], [id number] 09:48:00 Test Item Value Reference Range Interpretation Comments mean corpuscular hemoglobin 33.0 G/DL 31.5-35.7 concentration, RBC (test code = 786-4) [facility], SOR1655-10-08 09:48:00 Test Item Value Reference Range Interpretation Comments mean corpuscular hemoglobin, RBC 29.1 pg 26.6-33.0 (test code = 785-6) [facility] corpuscular volume, [id number] 09:48:00 Test Item Value Reference Range Interpretation Comments mean corpuscular volume, RBC (test code 88 fL 79-97 = 787-2) [facility] Cityhematocrit, lzzyu5683-95-29 09:48:00 Test Item Value Reference Range Interpretation Comments hematocrit, blood (test code = 4544-3) 41.5 % 34.0-46.6 [facility] Cityhemoglobin, hnxsn0424-20-27 09:48:00 Test Item Value Reference Range Interpretation Comments hemoglobin, blood (test code = 13.7 g/dL 11.1-15.9 718-7) [facility] Cityerythrocyte (RBC) hlrrv9445-36-80 09:48:00 Test Item Value Reference Range Interpretation Comments erythrocyte (RBC) count (test 4.70 X10E6/UL 3.77-5.28 code = 789-8) [facility] Cityleukocyte count, rffzq4378-94-19 09:48:00 Test Item Value Reference Range Interpretation Comments leukocyte count, blood (test 11.5 X10E3/UL 3.4-10.8 H code = 6690-2) [facility] Cityblood glucose, juqdgs9784-35-29 08:28:26 Test Item Value Reference Range Interpretation Comments blood glucose, random (test code = 387 mg/dL 2339-0) [facility]
[2022-06-17 08:24] LABS: Hematocrit 31.2 % (36.0-45.0); Lymphocytes % 24.7 % (15.3-44.8); MCV 92.3 fL (80-100); MPV 7.6 fL (7.6-11.3); RBC Red Blood Cell Count 3.38 M/uL (3.86-4.86)
[2022-06-17] MEDS ORDERED: MORPHINE 4 MG/ML SYR ONE (08:29)
[2022-06-17] MEDS ORDERED: ONDANSETRON 4 MG/2 ML VIAL ONE ×2 (08:30→15:46)
[2022-06-17 08:38] LABS: Potassium 3.5 mmol/L (3.5-5.1)
[2022-06-17 08:41] LABS: Troponin High Sensitivity 5884.5 pg/mL (<58.9)
--- NOTE | 2022-06-17 09:09 | ER ---
Nurse's Notes [facility] Name: Noy Lang Age: 51 yrs Sex: Female : 1970 Arrival Date: 06/17/2022 Time: 07:51 Bed 16 Private MD: Diagnosis: Subsequent non-ST elevation (NSTEMI) myocardial infarction Presentation: 06/17 08:01 Chief complaint: Patient states: "I am having chest pain that started yesterday. I was jd3 seen last night for this, but they were wanting to admit me, but I wasn't wanting to stay at the time. I needed a smoke and I didn't want ot stay. but the pain did not go away so I decided I needed to come back.". Coronavirus screen: At this time, the client does not indicate any symptoms associated with coronavirus-19. Ebola Screen: No symptoms or risks identified at this time. Initial Sepsis Screen: Does the patient meet any 2 criteria? No. Patient's initial sepsis screen is negative. Does the patient have a suspected source of infection? No. Patient's initial sepsis screen is negative. Risk Assessment: Do you want to hurt yourself or someone else? Patient reports no desire to harm self or others. Onset of symptoms was June 16, 2022. 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 - Social history:: Smoking status: Patient reports the use of cigarette tobacco products, smokes one pack cigarettes per day. Screenin:23 Abuse screen: Denies threats or abuse. Denies injuries from another. Nutritional kc6 screening: No deficits noted. Tuberculosis screening: No symptoms or risk factors identified. 13:26 Fall Risk Fall in past 12 months (25 points). No secondary diagnosis (0 pts). IV access kc6 (20 points). Ambulatory Aid- None/Bed Rest/Nurse Assist (0 pts). Gait- Normal/Bed Rest/Wheelchair (0 pts) Mental Status- Oriented to own ability (0 pts). Total Orta Fall Scale indicates High Risk Score (45 or more points). Fall prevention measures have been instituted. Side Rails Up X 2 Placed Close to Nursing Station Frequent Obs/Assessments Occuring As available patient and family educated on Fall Prevention Program and Strategies. Assessment: 08:17 General: Appears in no apparent distress. comfortable, Behavior is calm, cooperative, kc6 appropriate for age. Pain: Complains of pain in anterior aspect of right upper chest, anterior aspect of left upper chest, right breast and left breast Pain does not radiate. Pain currently is 8 out of 10 on a pain scale. Quality of pain is described as burning, Pain began 1 day ago. Is intermittent, Alleviated by nothing. Aggravated by stress Also complains of no other associated symptoms. Neuro: [place] Agitation-Sedation Scale (RASS): 0 - Alert and Calm Level of Consciousness is awake, alert, obeys commands, Oriented to person, place, time, situation, Appropriate for age. Cardiovascular: Heart tones S1 S2 present Capillary refill < 3 seconds Patient's skin is warm and dry. Pulses are 2+ in right radial artery, right posterior tibial artery, right dorsalis pedis artery, left radial artery, left posterior tibial artery and left dorsalis pedis artery Rhythm is sinus rhythm Chest pain. Respiratory: Airway is patent Respiratory effort is even, unlabored, Respiratory pattern is regular, symmetrical, Breath sounds with crackles in left posterior lower lobe and right posterior lower lobe. GI: Reports nausea, vomiting, client stated she believes its a result of her chemotherapy. : No signs and/or symptoms were reported regarding the genitourinary system. EENT: No signs and/or symptoms were reported regarding the EENT system. Derm: Skin is intact, Skin is pink, warm \\T\\ dry. Musculoskeletal: No signs and/or symptoms reported regarding the musculoskeletal system. Circulation, motion, and sensation intact. 09:26 Reassessment: Patient appears in no apparent distress at this time. No changes from kc6 previously documented assessment. Patient and/or family updated on plan of care and expected duration. Pain level reassessed. Patient is alert, oriented x 3, equal unlabored respirations, skin warm/dry/pink. client stated pain has decreased from an 8/10 to a 7/10. 10:11 Reassessment: Patient appears in no apparent distress at this time. No changes from kc6 previously documented assessment. Patient and/or family updated on plan of care and expected duration. Pain level reassessed. Patient is alert, oriented x 3, equal unlabored respirations, skin warm/dry/pink. client stated pain has decreased from a 7/10 to a 4/10. 10:33 Reassessment: clients SPO2 86% on room air. Lizbeth Urrutia NP notified and client kc6 placed on 2 liters nasal canula per protocol. 11:14 Reassessment: report given to preop laborer [employer] nurse, Wilma Villafana RN. preop laborer [employer] kc6 nurse at bedside obtaining consent and prepping patient. 12:16 Reassessment: Patient appears in no apparent distress at this time. No changes from kc6 previously documented assessment. Patient and/or family updated on plan of care and expected duration. Pain level reassessed. Patient is alert, oriented x 3, equal unlabored respirations, skin warm/dry/pink. client stated her pain is 6/10. 13:21 Reassessment: Patient appears in no apparent distress at this time. No changes from kc6 previously documented assessment. Patient and/or family updated on plan of care and expected duration. Pain level reassessed. Patient is alert, oriented x 3, equal unlabored respirations, skin warm/dry/pink. report given to Elie business controller. Elie transporting patient to laborer [employer]. Vital Signs: 08:09 BP 148 / 67; Pulse 74; Resp 18 S; Temp 97.7(O); Pulse Ox 97% on R/A; Weight 76.66 kg jd3 (R); Height 5 ft. 4 in. (162.56 cm) (R); Pain 7; 09:27 BP 144 / 65 RA Sitting (auto/reg); Pulse 70 RA; Resp 18 S; Pulse Ox 93% on R/A; Pain kc6 03/07; 10:14 BP 119 / 66 RA Sitting (auto/reg); Pulse 69 RA; Resp 16 S; Pulse Ox 91% on R/A; Pain kc6 4/10; 10:32 Pulse Ox 86% on R/A; kc6 10:32 Pulse Ox 96% on 2 lpm NC; kc6 11:21 BP 127 / 56 RA Sitting (auto/reg); Pulse 68 RA; Resp 16; Pulse Ox 99% on 2 lpm NC; Pain kc6 4/10; 12:17 BP 136 / 63 RA Supine (auto/reg); Pulse 71 RA; Resp 16 S; Temp 98.1(O); Pulse Ox 100% kc6 on 2 lpm NC; Pain 6/10; 13:22 BP 142 / 65; Pulse 68; Resp 16; Pulse Ox 98% ; kc6 08:09 Body Mass Index 29.01 (76.66 kg, 162.56 cm) jd3 ED Course: 07:51 Patient arrived in ED. em1 07:55 Lizbeth Urrutia FNP is [facility]. jh7 07:57 Alvarez Magaña MD is Attending Physician. jh7 08:01 Mina Ruiz RN is Primary Nurse. jd3 08:06 Triage completed. jd3 08:10 Arm band placed on. EKG completed in triage. Results shown to MD. jd3 08:24 Inserted saline lock: 20 gauge in left antecubital area, using aseptic technique. Blood kc6 collected. 08:27 Basic Metabolic Panel Sent. kc6 08:27 Troponin HS Sent. kc6 08:50 Notified Nurse Practitioner and/or Physician Human Resources Intern of a critical lab result(s), kc6 Lizbeth Urrutia NP notified of Troponin of 5,884.5. 09:01 XRAY Chest (1 view) In Process Unspecified. EDMS 09:07 Tessa Owen MD is Hospitalizing Provider. jh7 09:20 Alvarez Magaña MD is Attending Physician. jh7 11:25 SARS RAPID Sent. kc6 13:26 Patient has correct armband on for positive identification. Placed in gown. Bed in low kc6 position. Call light in reach. Side rails up X2. 13:38 No provider procedures requiring assistance completed. Patient admitted, IV remains in jd3 place. Administered Medications: 08:41 Drug: Zofran (Ondansetron) 4 mg Route: IVP; Site: left antecubital; kc6 09:41 Follow up: Response: No adverse reaction; Nausea is decreased kc6 08:42 Drug: morphine 4 mg Route: IVP; Infused Over: 4 mins; Site: left antecubital; kc6 09:42 Follow up: Response: No adverse reaction; Pain is decreased; RASS: Alert and Calm (0) kc6 09:15 Drug: XANax (alprazolam) Tablet 1 mg Route: PO; kc6 10:15 Follow up: Response: No adverse reaction; Anxiety decreased; RASS: Alert and Calm (0) kc6 13:20 Drug: NS 0.9% 500 ml {Note: sent to laborer [employer] with patient .} Route: IV; Rate: kc6 calculated rate; Site: left antecubital; 13:20 Follow up: Response: No adverse reaction; IV Status: Infusion continued upon admission kc6 Medication: 13:39 VIS not applicable for this client. jd3 Outcome: 09:08 Decision to Hospitalize by Provider. [facility] 13:38 Admitted to Print Shop Assistant accompanied by nurse, with chart. jd3 13:38 Condition: stable 13:38 Instructed on the need for admit, Demonstrated understanding of instructions. 13:39 Patient left the ED. jd3 Signatures: Dispatcher [employer] John Shankar em1 Mina Ruiz, RN RN Lizbeth Barr, WELT DRAWER WELT DRAWER jh7 Polly Grant RN RN kc6 Corrections: (The following items were deleted from the chart) 08:42 08:08 Allergies: Codeine; joshua kc6 08:42 08:08 Allergies: NKA [Inactive]; jd3 kc6 10:14 08:17 Cardiovascular: Heart tones S1 S2 present Capillary refill < 3 seconds Patient's kc6 skin is warm and dry. Pulses are all present. are 2+ in right radial artery, right posterior tibial artery, right dorsalis pedis artery, left radial artery, left posterior tibial artery and left dorsalis pedis artery Rhythm is sinus rhythm Chest pain kc6 11:25 11:14 Reassessment: report given to preop laborer [employer] nurse. laborer [employer] nurse at bedside kc6 obtaining consent and prepping patient. kc6
--- NOTE | 2022-06-17 09:09 | EDPHYS ---
Physician Documentation [facility] Name: Noy Lang Age: 51 yrs Sex: Female : 1970 Arrival Date: 06/17/2022 Time: 07:51 Bed 16 Private MD: LARRY Physician Alvarez Magaña HPI: 06/17 08:00 This 51 yrs old Female presents to ER via Ambulatory with complaints of chest pain. jh7 08:00 The patient or guardian reports chest pain that is located primarily in the anterior jh7 aspect of left upper chest and mid-sternal area. Onset: last night, and became worse today. The pain does not radiate. Associated signs and symptoms: The patient has no apparent associated signs or symptoms. The chest pain is described as a pressure. Patient seen last night for chest pain. She was to be admitted for non-ST elevated HI, but stated that she left AMA due to wanting a cigarette. Her troponin last night was 108. States that her pain is now an 8 out of 10. Denies any other symptoms at this time.. 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 - Social history:: Smoking status: Patient reports the use of cigarette tobacco products, smokes one pack cigarettes per day. ROS: 08:00 Constitutional: Negative for fever, chills, and weight loss, Eyes: Negative for injury, jh7 pain, redness, and discharge, ENT: Negative for injury, pain, and discharge, Neck: Negative for injury, pain, and swelling, Respiratory: Negative for shortness of breath, cough, wheezing, and pleuritic chest pain, Abdomen/GI: Negative for abdominal pain, nausea, vomiting, diarrhea, and constipation, Back: Negative for injury and pain, MS/Extremity: Negative for injury and deformity, Skin: Negative for injury, rash, and discoloration, Neuro: Negative for headache, weakness, numbness, tingling, and seizure. 08:00 Cardiovascular: Positive for chest pain, Negative for orthopnea, palpitations. 08:00 All other systems are negative. Exam: 08:00 Constitutional: This is a well developed, well nourished patient who is awake, alert, jh and in no acute distress. Head/Face: Normocephalic, atraumatic. Eyes: Pupils equal round and reactive to light, extra-ocular motions intact. Lids and lashes normal. Conjunctiva and sclera are non-icteric and not injected. Cornea within normal limits. Periorbital areas with no swelling, redness, or edema. ENT: Nares patent. No nasal discharge, no septal abnormalities noted. Oropharynx with no redness, swelling, or masses, exudates, or evidence of obstruction, uvula midline. Mucous membranes moist. Cardiovascular: Regular rate and rhythm with a normal S1 and S2. No gallops, murmurs, or rubs. Normal PMI, no JVD. No pulse deficits. Respiratory: Lungs have equal breath sounds bilaterally, clear to auscultation and percussion. No rales, rhonchi or wheezes noted. No increased work of breathing, no retractions or nasal flaring. Abdomen/GI: Soft, non-tender, with normal bowel sounds. No distension or tympany. No guarding or rebound. No evidence of tenderness throughout. Back: No spinal tenderness. No costovertebral tenderness. Full range of motion. Skin: Warm, dry with normal turgor. Normal color with no rashes, no lesions, and no evidence of cellulitis. MS/ Extremity: Pulses equal, no cyanosis. Neurovascular intact. Full, normal range of motion. Neuro: Awake and alert, GCS 15, oriented to person, place, time, and situation. Motor strength 5/5 in all extremities. Sensory grossly intact. Normal gait. 08:06 ECG was reviewed by the Attending Physician. [facility] Vital Signs: 08:09 BP 148 / 67; Pulse 74; Resp 18 S; Temp 97.7(O); Pulse Ox 97% on R/A; Weight 76.66 kg jd3 (R); Height 5 ft. 4 in. (162.56 cm) (R); Pain 7/10; 09:27 BP 144 / 65 RA Sitting (auto/reg); Pulse 70 RA; Resp 18 S; Pulse Ox 93% on R/A; Pain kc6 7/10; 10:14 BP 119 / 66 RA Sitting (auto/reg); Pulse 69 RA; Resp 16 S; Pulse Ox 91% on R/A; Pain kc6 4/10; 10:32 Pulse Ox 86% on R/A; kc6 10:32 Pulse Ox 96% on 2 lpm NC; kc6 11:21 BP 127 / 56 RA Sitting (auto/reg); Pulse 68 RA; Resp 16; Pulse Ox 99% on 2 lpm NC; Pain kc6 4/10; 12:17 BP 136 / 63 RA Supine (auto/reg); Pulse 71 RA; Resp 16 S; Temp 98.1(O); Pulse Ox 100% kc6 on 2 lpm NC; Pain 6/10; 13:22 BP 142 / 65; Pulse 68; Resp 16; Pulse Ox 98% ; kc6 08:09 Body Mass Index 29.01 (76.66 kg, 162.56 cm) jd3 MDM: 07:55 Patient medically screened. [facility] 09:16 Differential diagnosis: abnormal EKG, acute myocardial infarction, unstable angina. [facility] Data reviewed: vital signs, nurses notes, lab test result(s), EKG, radiologic studies, plain films. Data interpreted: traffic monitor specialist: rate is 74 beats/min, rhythm is regular, Interpretation: normal rate, normal rhythm, Pulse oximetry: is 97 %. Interpretation: normal. Counseling: I had a detailed discussion with the patient and/or guardian regarding: the historical points, exam findings, and any diagnostic results supporting the discharge/admit diagnosis, the need for further work-up and treatment in the hospital. Physician consultation: Matthew Frederick MD was contacted at 09:05, regarding admission, and will see patient in ED, would like admission per Dr. Tessa Owen MD. 06/17 08:05 Order name: Basic Metabolic Panel; Complete Time: 08:52 [facility] 06/17 08:05 Order name: CBC with Diff; Complete Time: 08:29 [facility] 06/17 08:05 Order name: Troponin HS; Complete Time: 08:52 [facility] 06/17 10:47 Order name: Protime (+INR) EDMS 06/17 10:47 Order name: PTT, Activated Partial Thromb EDMS 06/17 10:51 Order name: SARS RAPID em1 06/17 08:05 Order name: XRAY Chest (1 view); Complete Time: 09:19 7 06/17 10:44 Order name: CL LEFT HEART WITHOUT LV EDMS 06/17 12:48 Order name: Basic Metabolic Panel EDMS 06/17 12:48 Order name: Basic Metabolic Panel EDMS 06/17 12:48 Order name: CBC with Automated Diff EDMS 06/17 12:48 Order name: CBC with Automated Diff EDMS 06/17 12:48 Order name: Lipid Profile EDMS 06/17 12:48 Order name: Lipid Profile EDMS 06/17 08:05 Order name: EKG; Complete Time: 08:05 7 06/17 08:05 Order name: Cardiac monitoring; Complete Time: 08:07 7 06/17 08:05 Order name: EKG - Nurse/Tech; Complete Time: 08:07 7 06/17 08:05 Order name: IV Saline Lock; Complete Time: 08:07 7 06/17 08:05 Order name: Labs collected and sent; Complete Time: 08:07 7 06/17 08:05 Order name: O2 Per Protocol; Complete Time: 08:07 7 06/17 08:05 Order name: O2 Sat Monitoring; Complete Time: 08:07 7 06/17 10:45 Order name: NPO; Complete Time: 11:25 EDMS 06/17 12:48 Order name: CONS Physician Consult EDMS 06/17 12:48 Order name: Heart Healthy; Complete Time: 13:02 EDMS 06/17 12:48 Order name: Echo with Doppler EDMS EC:06 Rate is 70 beats/min. Rhythm is regular. QRS [place] is Normal. [place] interval is normal at jh7 142 msec. QRS interval is normal at 100 msec. QT interval is normal at 416 msec. No Q waves. T waves are Normal. Clinical impression: Abnormal EKG without significant change. Administered Medications: 08:41 Drug: Zofran (Ondansetron) 4 mg Route: IVP; Site: left antecubital; 6 09:41 Follow up: Response: No adverse reaction; Nausea is decreased kc6 08:42 Drug: morphine 4 mg Route: IVP; Infused Over: 4 mins; Site: left antecubital; kc6 09:42 Follow up: Response: No adverse reaction; Pain is decreased; RASS: Alert and Calm (0) kc6 09:15 Drug: XANax (alprazolam) Tablet 1 mg Route: PO; kc6 10:15 Follow up: Response: No adverse reaction; Anxiety decreased; RASS: Alert and Calm (0) kc6 13:20 Drug: NS 0.9% 500 ml {Note: sent to lab assistant with patient .} Route: IV; Rate: kc6 calculated rate; Site: left antecubital; 13:20 Follow up: Response: No adverse reaction; IV Status: Infusion continued upon admission kc6 Disposition Summary: 06/17/22 09:08 Hospitalization Ordered Hospitalization Status: Inpatient Admission [facility] Provider: Tessa Owen [facility] Condition: Stable [facility] Problem: new [facility] Symptoms: are unchanged [facility] Bed/Room Type: Standard [facility] Room Assignment: [facility] Diagnosis - Subsequent non-ST elevation (NSTEMI) myocardial infarction [facility] Forms: - Medication Reconciliation Form [facility] - SBAR form [facility] Addendum: 06/22/2022 03:58 Co-signature as Attending Physician, Alvarez Magaña MD I agree with the assessment and c garcia plan of care. Signatures: Dispatcher [employer] Alvarez Lynn MD MD cha Davies, Jonathon, RN RN jLizbeth Modi FNP MARKET NEWS REPORTER [facility] Polly Grant RN RN kc6 Corrections: (The following items were deleted from the chart) 06/17 08:42 08:08 Allergies: Codeine; jd3 kc6 08:42 08:08 Allergies: NKA [Inactive]; jd3 kc6
[2022-06-17] MEDS ORDERED: ALPRAZOLAM 1 MG TABLET ONE (09:11)
--- NOTE | 2022-06-17 09:16 | RAD REPORT ---
EXAM DESCRIPTION: RAD - Chest Single View - 06/17/2022 8:59 am CLINICAL HISTORY: CHEST PAIN COMPARISON: Portable 06/16/2022 TECHNIQUE: AP portable chest image was obtained 06/17/2022 8:59 am . FINDINGS: No focal mass or consolidation. Lower lung field interstitial pattern is accentuated by un rivka penetrated film technique overlying breast soft tissue. Minimal interstitial edema or infiltrate could be masked. Overall pattern is not substantially different from prior day examination. Heart and vasculature are normal. No measurable pleural effusion and no pneumothorax. No acute bony abnormalit y seen. No acute aortic findings suspected. IMPRESSION: No acute cardiopulmonary process suspected. Minimal interstitial edema or infiltrate could be masked. Overall pattern is not substantially differ ent from comparison.
[2022-06-17] MEDS ORDERED: NA CHLORIDE 0.9% 500 ML ONE ×2 (11:07→17:38)
[2022-06-17 12:08] LABS: SARS-CoV-2 Antigen Rapid Res Negative (Negative)
[2022-06-17 12:34] LABS: Protime INR 1.03
[2022-06-17] MEDS ORDERED: ACETAMINOPHEN 500 MG TAB PO PRN (12:43)
[2022-06-17] MEDS ORDERED: MORPHINE 4 MG/ML SYR IV PRN (12:43)
[2022-06-17] MEDS ORDERED: FENTANYL CITR 100 MCG/2 ML ONE (13:20)
[2022-06-17] MEDS ORDERED: HEPA 1000U/500MLS 2,000 UNIT/1,000 ML BAG IV ONE (13:20)
[2022-06-17] MEDS ORDERED: MIDAZOLAM HCL 2 MG/2 ML INJ ONE ×2 (13:20→16:19)
[2022-06-17] MEDS ORDERED: CLOPIDOGREL 75 MG TABLET ONE (13:21)
[2022-06-17] MEDS ORDERED: VERAPAMIL HCL 10 MG/4 ML VIAL IV ONE (13:21)
[2022-06-17] MEDS ORDERED: TICAGRELOR 90 MG TABLET PO ONE (13:21)
[2022-06-17] MEDS ORDERED: ATROPINE SULF 1 MG/10 ML SYR IV ONE (13:21)
[2022-06-17] MEDS ORDERED: LIDOCAINE 1% MPF 30 ML VIAL ONE (13:21)
[2022-06-17] MEDS ORDERED: HEPARIN 5000 UNIT/ML 1 ML VIAL ONE (13:22)
[2022-06-17] MEDS ORDERED: HEPARIN 10,000 UNIT/10 ML VIAL IV ONE (13:22)
[2022-06-17] MEDS ORDERED: ASPIRIN 325 MG TAB ONE (13:46)
[2022-06-17] MEDS ORDERED: FUROSEMIDE 20 MG/ 2ML VIAL ONE ×2 (15:11→15:17)
[2022-06-17] MEDS ORDERED: ATORVASTATIN 40 MG TAB PO SCH (21:00)
[2022-06-17] MEDS: METOPROLOL TAR 50 MG TAB PO SCH (21:14)
--- NOTE | 2022-06-17 22:51 | CON ---
Date of Consultation: 06/17/2022 Reason For Consultation: Chest pain and elevated troponin. History Of Present Illness: This is a 51-year-old female with past medical history of metastatic ova lamar cancer, history of coronary artery disease status post LAD STEMI in the past, history of congest mehdi heart failure, diabetes, and hypertension who presented with crushing substernal chest pain. She checked in initially to the ER and left AMA and then came back with worsening chest pain. Troponin was high in the 5000 range. Evaluated by bedside emergency room and recommended coronary angiogram u rgently. The patient agreed to the plan to keep her n.p.o. for that matter. Denies having any nause a, vomiting, or diaphoresis. Past Medical History: As outlined above in HPI. Medications: Refer to reconciliation sheet for detailed list. Allergies: NO KNOWN DRUG ALLERGIES. Family History: No premature coronary artery disease. Social History: Does not drink or use any drugs. Review of Systems: All systems reviewed and are negative except as mentioned in HPI. Physical Examination: Vital Signs: Reviewed. Head And Neck: Pupils are equal and reactive to light. Intact eye movements. No JVD. No cervical lymphadenopathy. Neck: Supple. Thyroid is not enlarged. Lungs: Clear to auscultation bilaterally. No rhonchi, wheezes, or crackles. No accessory muscle us e or muscle retraction. Heart: Regular rate and rhythm. No extra sounds. Abdomen: Soft, nontender. Bowel sounds positive. No organomegaly. No masses or hernia. No rigidi ty or rebound. Extremities: No clubbing or cyanosis. Intact pulses. Skin: No rashes. Neurologic: Alert, awake, and oriented x3. No acute focal deficits appreciated. Lymph Nodes: No cervical or axillary lymphadenopathy. Investigations: BUN 15, creatinine is 1. Troponins 5884. White blood cell count is 8.2 and hemoglo bin is 11. Assessment And Recommendations: 1.Non-ST elevation myocardial infarction. Keep n.p.o. and we will take her urgently to the cardiac catheterization laboratory for coronary angiogram and percutaneous coronary intervention as needed. Noted with aspirin 325 mg and put her on heparin drip pending the left heart catheterization. 2.Severe congestive heart failure. Obtain an echocardiogram and we will plan to adjust her medicati ons according to the results and start her on Lasix 40 mg IV q.12 hours, pending the workup above. /MATT Voice ID: [id number] Report ID: [id number]
[2022-06-18] MEDS: FUROSEMIDE 40 MG/4 ML VIAL IV SCH ×2 (01:15→09:00)
[2022-06-18 02:25] VITALS: BMI 29.0
--- NOTE | 2022-06-18 03:07 | OP ---
Date of Procedure: 06/17/2022 Surgeon: RAQUEL ORNELAS Procedures Performed: 1.Selective coronary angiogram. 2.PCI of severe left circumflex stenosis, which is the culprit. I used a 3.0 x 32 mm Synergy drug-e luting stent. Access: Right radial artery 6-[place] closed with TR band. Complications: None. Anesthesia: Total sedation time was 65 minutes. Description Of Procedure: After risks, benefits, and alternatives were explained, the patient agreed to the procedure and signed informed consent. The patient was brought into the cardiac catheterizat ion laboratory and prepped and draped in usual sterile fashion. Then, I accessed the right radial ar tessy using pediatric micropuncture kit, placed 6-[place] Slender sheath and took 5-[place] 4 cath eter in the aortic root, engaged left main, right coronary artery, and took standard views. Catheter was pushed over the wire into the LV, measured LVEDP and pullback did not record any gradient. Then , I exchanged for 6-[place] EBU 3.5 guide, engaged left main, took short Runthrough wire into the left circumflex, lesion has been dilated and then placed a 3.0 x 32 mm Synergy drug-eluting stent with go od expansion and good results. At the end of procedure, patient became very short of breath and hypo xic from lying flat for a full hour and went into acute heart failure. We placed the BiPAP on her an d after the IV Lasix diuresis, patient did very well and she became hemodynamically and clinically st able. The catheters and the guide were removed and the sheath was removed. TR band was placed with good hemostasis. Findings: 1.Left main is short and normal. 2.LAD has axgilcnp-mj-tbu patent stent and patent diagonal branches. 3.Left circumflex with ugnlnxyi-qv-tow severe stenosis ranging between 80% and 90%, status post succ essful PCI as above. 4.RCA is a dominant large vessel with proximal 20%. There is an accessory left circumflex branch th at comes off the right coronary cusp as well that appears to be normal. 5.Elevated LVEDP at 26 mmHg. Conclusion: 1.Severe left circumflex stenosis, which is a culprit. Status post successful percutaneous coronary intervention. 2.Patent left anterior descending stent. 3.Mild coronary artery disease. 4.Elevated left ventricular end-diastolic pressure. Plan: 1.Aspirin, Plavix and high-dose statin. 2.Aggressive diuresis. SR/MODL Voice ID: [id number] Report ID: [id number]
[2022-06-18 04:17] VITALS: BP 115/46; TEMP 96.9; O2SAT 98
[2022-06-18] MEDS ORDERED: ONDANSETRON 4 MG/2 ML VIAL IV PRN (06:05)
[2022-06-18 06:11] LABS: Hematocrit 32.9 % (36.0-45.0); MCV 93.4 fL (80-100); MPV 7.7 fL (7.6-11.3); RBC Red Blood Cell Count 3.52 M/uL (3.86-4.86)
[2022-06-18 06:12] LABS: Absolute Lymphocytes (CBC) 0.9 K/uL (0.7-4.9)
[2022-06-18 06:29] LABS: Potassium 3.6 mmol/L (3.5-5.1)
[2022-06-18] MEDS ORDERED: CLOPIDOGREL 75 MG TABLET PO SCH (09:00)
[2022-06-18] MEDS ORDERED: ENOXAPARIN 40 MG/0.4 ML SQ SCH (09:00)
[2022-06-18] MEDS ORDERED: ASPIRIN EC 81 MG TAB PO SCH (09:00)
[2022-06-18] MEDS: METOPROLOL TAR 50 MG TAB PO SCH (09:00)
--- NOTE | 2022-06-18 20:53 | PN ---
Date of Progress Note: 06/18/2022 Subjective: Seen at bedside. She is doing much better. No further chest pain. Her breathing is mu ch better. Still has some orthopnea. No nausea, vomiting, or diarrhea. No dysuria, polyuria, or ur gency. All other systems are reviewed and are negative. Physical Examination: Vital Signs: Temperature is 97.3, pulse is 73, breathing at 18, blood pressure 131/60, and saturatin g 100% on room air. General: A pleasant middle-aged female, in no apparent distress. Head And Neck: Pupils are equal and reactive to light. Intact eye movements. No JVD. No cervical lymphadenopathy. Neck: Supple. Thyroid is not enlarged. Lungs: Clear to auscultation bilaterally. No rhonchi, wheezing, or crackles. No accessory muscle u se. Heart: Regular rate and rhythm. No extra sounds. Abdomen: Soft, nontender. Bowel sounds positive. No organomegaly. No masses or hernia. No rigidi ty or rebound. Extremities: No clubbing or cyanosis. Intact pulses. Skin: No rashes. Neurologic: Alert, awake, and oriented x3. No acute focal deficits appreciated. Investigations: BUN is 14, creatinine 0.96. Assessment And Recommendations: 1.Non-ST elevation myocardial infarction status post successful percutaneous coronary intervention o f the culprit vessel of the left circumflex, doing well. Continue aspirin, Plavix, high-dose statin. 2.Acute decompensated congestive heart failure exacerbation. Obtain an echocardiogram. Continue La six 40 mg IV twice a day for one more day and then switch her to oral and introduce low dose beta-valentina and LADI inhibitor if blood p ressure allows. SR/MODL Voice ID: [id number] Report ID: [id number]
--- NOTE | 2022-06-19 16:59 | EKG ---
Test Date: 2022-06-17 Test Time: 08:06:17 Watchmaker Apprentice: SHERRY MEASUREMENT RESULTS: Intervals: Rate: 70 MA: 142 QRSD: 100 QT: 416 QTc: 449 [place]: P: 56 MA: 142 QRS: -27 T: 22 INTERPRETIVE STATEMENTS: Normal sinus rhythm Incomplete right bundle branch block Voltage criteria for left ventricular hypertrophy Abnormal ECG Compared to ECG 06/16/2022 21:44:28 Left-axis deviation no longer present ST (T wave) deviation no longer present Prolonged QT interval no longer present Electronically Signed On 06-19-22 16:54:47 CDT by Matthew Frederick
== END 2022-06-18 09:39 | disposition left against medical advice (07) | DRG 246 ==
LOC: ER 07:41 → ERHOLD 12:43 → 4TH 14:24
PROVIDERS: ADMIT Hospitalist; ATTEND Hospitalist
PROC: 027034Z Dilation of Coronary Artery, One Artery with Drug-eluting Intraluminal Device, Percutaneous Approach (ICD-10-PCS; principal; 2022-06-17)
PROC: 4A023N7 Measurement of Cardiac Sampling and Pressure, Left Heart, Percutaneous Approach (ICD-10-PCS; 2022-06-17)
PROC: B2111ZZ Fluoroscopy of Multiple Coronary Arteries using Low Osmolar Contrast (ICD-10-PCS; 2022-06-17)
PROC: 5A09357 Assistance with Respiratory Ventilation, Less than 24 Consecutive Hours, Continuous Positive Airway Pressure (ICD-10-PCS; 2022-06-17)
DX: I21.4 Non-ST elevation (NSTEMI) myocardial infarction (principal); I50.33 Acute on chronic diastolic (congestive) heart failure; E11.9 Type 2 diabetes mellitus without complications; I25.10 Atherosclerotic heart disease of native coronary artery without angina pectoris; F17.210 Nicotine dependence, cigarettes, uncomplicated; I25.2 Old myocardial infarction; Z95.5 Presence of coronary angioplasty implant and graft; Z85.43 Personal history of malignant neoplasm of ovary; Z85.42 Personal history of malignant neoplasm of other parts of uterus; Z53.29 Procedure and treatment not carried out because of patient's decision for other reasons; Z20.822 Contact with and (suspected) exposure to COVID-19
CPT/HCPCS: 36415; 71045; 71275; 76937; 80048; 80061; 80076; 83690; 83735; 83880; 84484; 85025; 85347; 85379; 85610; 85730; 87804; 87811; 92928; 93005; 93458; 93970; 94660; 94760; 96374; 96375; 99285; C1725; C1893; J0461; J1644; J1815; J1940; J2001; J2250; J2405; J3010; J7040; Q9967; U0003

== ENCOUNTER 2022-06-25 05:39 | Inpatient (IN) | payer BC ==
[2022-06-25] MEDS ORDERED: LEVALBUTEROL 1.25 MG/3 ML NEB ONE (05:49)
[2022-06-25] MEDS ORDERED: MAGNESIUM SULFATE 1 gm IVPB 1 GM/100 ML BAG IV ONE (05:49)
[2022-06-25 05:57] LABS: Blood Gas Oxyhemoglobin 95.4 % (94-97); Blood O2 Saturation 99.6 % (92-98.5)
--- OUTSIDE RECORDS SUMMARY | 2022-06-25 06:04 | XMS REPORT | Continuity of Care Document ---
:1970 Author Organization [facility] t Address [address] [place] [address] Care Team Providers Name Role Phone None, None Primary Care Physician Unavailable ROYCE FLOWER Attending Clinician Unavailable POLLY WARREN Attending Clinician Unavailable ZOIE MUNSON Attending Clinician Unavailable Thomas Montelongo Attending Clinician Thalia Meehan Attending Clinician Joie HATCH, Aditya Attending Clinician THALIA SUTTON Attending Clinician Unavailable Doctor Unassigned, [place] Attending Clinician Unavailable Marie Carias LMSW Attending Clinician Jim Ford MD Attending Clinician [phone] Isidro HATCH, Anastasia Cowan Attending Clinician Vernon Owen MD Attending Clinician THEO PERALTA Attending Clinician Unavailable Fabian HATCH, Theo Attending Clinician Karin Juan Attending Clinician KARIN AGUIRRE Attending Clinician Unavailable Kristie HATCH, Yann Flores Attending Clinician Sommer HATCH, Paul Mason Attending Clinician Mundo HATCH, Mary Booker Attending Clinician Vic ResidentDO, Milagro Mason Attending Clinician +[phone] Jac HATCH, Marion Attending Clinician Alexia Del Valle Attending Clinician Unavailable [facility] Attending Clinician Unavailable _SE_Rivera_A Attending Clinician Unavailable ADRIANA HUMPHREY Attending Clinician Unavailable Kiarra Ramos RN Attending Clinician Unavailable Blayne Robbins MD Attending Clinician Claudia ResidentMD, Patricia Sanford Attending Clinician +[phone] BLAYNE ROBBINS Attending Clinician Unavailable Briana ResidentMD, Polly Mason Attending Clinician +[phone] Clarissa Roberson MD Attending Clinician Jen Orta MD Attending Clinician JAMEL GROVE Attending Clinician Unavailable Anitra Murillo RN Attending Clinician Unavailable Guy ResidentMD, Brayan Mason Attending Clinician +[phone] GIBSON DAY Attending Clinician Unavailable LAVERNE BURGOS Attending Clinician Unavailable Mahesh ResidentMD, Gibson Attending Clinician Jessica Liriano Attending Clinician Unavailable Gonzalo ResidentMD, Anna Lopes Attending Clinician +[phone] Yojana Resident, Cammy Harrison Attending Clinician + Gibson Day MD Attending Clinician CLARISSA ROBERSON Attending Clinician Unavailable Geeta Suzette Regalado Attending Clinician Unavailable Steve HATCH, Danielle Attending Clinician Cornelio HATCH, Sweetie Flores Attending Clinician Elijah Lewis LVN Attending Clinician Unavailable Joie CHANG, Deysi Fabian Attending Clinician Dov HATCH, Jamari Lopes Attending Clinician Lalo HATCH, Shade Attending Clinician Radha Ambrosio MD Attending Clinician Yodit Keith Attending Clinician [phone] MARY BLEVINS Attending Clinician Unavailable SWEETIE GRIMES Attending Clinician Unavailable Pricilla Chong RN Attending Clinician Unavailable DEYSI SALTER Attending Clinician Unavailable Arin Ramirez RN Attending Clinician Unavailable Radha Aguirre DO C Attending Clinician Nick WATERS, Teodoro Attending Clinician JUVENTINO LAGOS Attending Clinician Unavailable QING DAWSON Attending Clinician Unavailable Joie HATCH, Argenis T Attending Clinician Sammie Juan Attending Clinician [phone] Alexandra Nagel Attending Clinician [phone] Juany Mcwilliams Attending Clinician Unavailable Kiarra Silva Attending Clinician Unavailable ANDREA NAVARRETE Attending Clinician Unavailable MALIK MEDINA Attending Clinician Unavailable Status, Fax Attending Clinician Unavailable Clarissa Maldonado Attending Clinician [phone] Re Owen Attending Clinician Unavailable Mallory Esparza Attending Clinician UnavailTiffany Enriquez Attending Clinician Unavailable Caren Beck Attending Clinician Unavailable Hoa Duong Attending Clinician [phone] Ragini Toro Attending Clinician Unavailable Lou Chowdhury,Re Attending Clinician Unavailable Radha Tom Attending Clinician Unavailable Casandra Kwan Attending Clinician Unavailable Napoleon Ramirez Attending Clinician Unavailable Ailyn Zavala Attending Clinician [phone] Jane Lerner Attending Clinician Unavailable Krystina Morrow Attending Clinician Unavailable Reece King Attending Clinician Unavailable Kiarra Aguirre Attending Clinician Unavailable Timmy Cohen Attending Clinician Unavailable Lay Tom Attending Clinician Unavailable Kate Owen Attending Clinician [phone] Shikha Felton Attending Clinician Unavailable Alexandria Palma Attending Clinician Unavailable Aura Perry Attending Clinician Unavailable Sabrina Boateng Attending Clinician Unavailable Enmanuel Jordan Attending Clinician Unavailable Jim Ford MD Admitting Clinician JIM FORD Admitting Clinician Unavailable _SEFP_[place]a_A Admitting Clinician Unavailable Sammie Juan Unavailable [phone] Hoa Duong Unavailable [phone] Clarissa Maldonado Unavailable [phone] Kate Owen Unavailable [phone] Payers Payer Name Policy Type Policy Number Effective Date Expiration Date S ource HIM [facility] BLUE [id number] 2021 ADVANTAGE HMO 00:00:00 [id number] 2021 00:00:00 [facility]: BLUE [id number] 2021 ADVANTAGE (HMO) 00:00:00 [facility] CI [id number] 2018 2018 [facility] 00:00:00 00:00:00 [facility] CI [id number] 2017 2017 [facility] 00:00:00 00:00:00 [facility] CI [id number] 2017 2017 [facility] 00:00:00 00:00:00 [facility] Problems Condition Condition Condition Status Onset Resolution Last Treating Co mments Source Name Details Category Date Date Treatment Clinician Date STEMI (ST STEMI (ST Disease Active 2021-08 Uni vers elevation elevation 0-22 ity of myocardial myocardial [place] infarction infarction 00 Me dical ) ) Branch Endometria Endometria Disease Active H arr[facility] l cancer l cancer 8 Health 00:00: 00 Gynecologi Gynecologi Disease Active H [facility] c cancer c cancer 04-23 Health 00:00: 00 Dermatitis Condition Active 2019-082020-07-02 Kiko [facility] 09-01 15:40:37 Darius Pitt 00:00: [place] 00 Health BMI Condition Active 2019-082020-07-02 Kiko Leg acy 29.0-29.9 09-01 15:40:37 Marita Pittu ni 00:00: [place] ty Health Post-traum Post-traum Disease Active Overview : [place] atic atic 12-03 [facility] stress stress 00:00: g of this disorder, disorder, 00 note unspecifie unspecifie might be d d different from the original. Rocky 1 Priority 2 Essential Essential Disease Active Overview: [place] (primary) (primary) 12-03 [facility] hypertensi hypertensi 00:00: g of this on on note might be different from the original. Rocky 3 Priority 1 Rocky V Rocky V Disease Active Overview: [place] diagnosis diagnosis 12-03 [facility] 00:00: g of this 00 note might be different from the original. GAF Score:45 Major Major Disease Active Overview: [place] depressive depressive 12-02 [facility] disorder, disorder, 00:00: g of this recurrent, recurrent, 00 note unspecifie unspecifie might be d d different from the original. [place] 1 Priority 1 Unavailabi Unavailabi Disease Active Overview : [place] lity and lity and 12-02 [facility] lth inaccessib inaccessib 00:00: g of this ility of ility of note health-car health-car might be e e different facilities facilities from the original. Rocky 4 Priority 1 Occupation Occupation Disease Active Overview : [place] al problem al problem 12-02 [facility] 00:00: g of this 00 note might be different from the original. [place] 4 Priority 2 Problem Problem Disease Active Overview: Joe is related to related to 12-02 [facility] primary primary 00:00: g of this support support 00 note group group might be different from the original. [place] 4 Priority 3 Economic Economic Disease Active Overview: [facility] problem problem 12-02 [facility] h 00:00: g of this 00 note might be different from the original. Rocky 4 Priority 4 Nausea and Condition Active 2017-082018-08-14 AdDewayne vomiting 2-17 11:28:03 [facility] Commun i 00:00: ty 00 [...] Health Obesity Condition Active 2015-082016-06-16 Dewayne Maldonado 0- 09:12:09 Clarissa Communi 00:00: ty 00 Health Cervical Cervical Disease Active 2014-08 April lopes cancer cancer 0-06 Health screening screening 00:00: 00 Tobacco Tobacco Disease Active [place] use use 8 Health disorder disorder 00:00: 00 Tobacco Tobacco Disease Active [place] abuse abuse 8 Health counseling counseling 00:00: 00 Overweight Overweight Disease Active H arris 8 Health 00:00: 00 Exercise Exercise Disease Active April lopes counseling counseling 04-02 He alth 00:00: 00 Diabetes Diabetes Disease Active April lopes mellitus mellitus 01-14 Health type 2 type 2 00:00: with with 00 complicati complicati ons ons Ingrown Ingrown Disease Active [place] right big right big 01-14 Heal toenail toenail 00:00: 00 UTI (Lower UTI (Lower Disease Active H arris Urinary Urinary 515 Health Tract Tract 00:00: Infection) Infection) 00 Shingles Shingles Disease Active April lopes 12-18 Health 00:00: 00 Yeast Yeast Disease [...] Disease Active [facility] abdominal abdominal 03-19 Heal th tenderness tenderness [...] 00 disease) disease) Major Major Disease Active [place] depression depression 1-17 He alth , , 00:00: recurrent recurrent 00 Homeless Homeless Disease Active 2011-08 Harri s 10-02 Health 00:00: 00 Mild HTN Mild HTN Disease Active 2011-08 Harri s 10-02 Health 00:00: 00 Depression Depression Disease Active 2011-08 H arris 10-02 Health 00:00: 00 Positive Positive Disease Active 2011-08 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 PPD, PPD, 10-02 Health treated treated 00:00: 00 Rash Rash Disease Active [facility] Visual Visual Disease Active [place] disturbanc disturbanc He alth e e History of Past Illness Condition Condition Condition Status Onset Resolution Last Treating Co mments Source Name Details Category Date Date Treatment Clinician Date Mammogram, Condition Inactiv 2016-082018-07-30 2017-07-30 Daisy Kingacy Screening e 09-30 00:00:00 13:10:31 Clarissa Co mmuni 00:00: ty 00 Health URI Condition Inactiv 2017-12-16 2016-12-16 Brayden [facility] e 12-16 00:00:00 14:36:53 Kate Commu ni 00:00: ty 00 Health Allergies, Adverse Reactions, Alerts Allergy Allergy Status Severity Reaction(s) Onset Inactive Treating Comm ents Source Name Type Date Date Clinician Codeine Propensi Active Anaphylaxis, 2019-0806/08/20 2 [place] ty to Swelling 22 2 patient Healt h adverse 00:00: states reaction 00 she is s to not drug allergic to Codeine CODEINE Drug Active High 2015-08 [facility] allergy Criticali 0-19 Commun i (disorde ty 00:00: ty r) 00 Health Codeine Allergy Active 2015-08 [place] to 0-19 Health substanc 00:00: e 00 Lamotrig Propensi Active 2013-08 rash [place] ine ty to 09-13 Health adverse 00:00: reaction 00 s to drug NO KNOWN Drug Active Univers ALLERGIE Class ity of S [facility] Family History Family Member Diagnosis Comments Start Date Stop Date Source Natural father Cancer [facility] Natural mother Cancer [facility] Paternal grandmother Cancer Joe is Health Social History Social Habit Start Date Stop Date Quantity Comments Source History of tobacco Passive smoker Un iversity of use [facility] Exposure to 2022-06-12 2022-06-22 Not sure University SARS-CoV-2 (event) 00:00:00 10:08:00 [facility] Alcohol intake 2022-06-11 2022-06-11 Current non-drinker H [facility] Health 00:00:00 00:00:00 of alcohol (finding) History [facility] Food 2022-04-29 2022-04-29 1 [facility] Health Worry 00:00:00 00:00:00 History SDID Food 2022-04-29 2022-04-29 1 [facility] Health Scarcity 00:00:00 00:00:00 History SDOH 2022-03-18 2022-03-18 1 [facility] 00:00:00 00:00:00 History SDOH 2022-03-18 2022-03-[facility] Drinks 00:[facility]:00 00:00:00 History SDOH 2022-03-18 2022-03-18 1 [facility] Alcohol Binge 00:00:00 00:00:00 History SDOH 2022-03-18 2022-03-18 5 [facility]alt [facility] Social Connections 00:00:00 00:00:00 Phone History SDOH 2022-03-18 2022-03-18 [facility]00 00:00:00 Get Together History SDOH 2022-03-18 2022-03-18 3 [facility] Social Connections 00:00:00 00:00:00 Pentecostalism History SDOH 2022-03-18 2022-03-18 2 [facility] Healt [...] 00:00:00 Pay History SDOH 2022-03-18 2022-03-18 1 [facility] Housing Places 00:00:00 00:00:00 Lived History SDOH 2022-03-18 2022-03-18 2 [facility] Housing Homeless 00:00:00 00:00:00 Last Year Cigarettes smoked 2022-01-19 2022-01-19 [facility] current (pack per 00:00:00 00:00:00 day) - Reported Cigarette 2022-01-192022-01-19 [facility] pack-years 00:00:00 00:00:00 Tobacco use and 2022-01-19 2022-01-19 Smokeless tobacco [facility] exposure 00:00:00 00:00:00 non-user drug use, illicit 2020-07-02 2020-07-02 [facility] 15:12:44 15:12:44 Health alcohol use 2020-07-02 2020-07-02 Never [facility] ity 15:12:44 15:12:44 Health social history E&M 2020-07-02 2020-07-02 Single. Born in [facility] 15:12:44 15:12:44 [place]. City: [facility]. State: [place]. Employed full-time. [employer]. Sex at : Female. Sexual orientation: Heterosexual. Gender identity: Female. Gender of partner(s): Male. Age of first sexual intercourse: 16. Sexually Active: Yes. sexual orientation 2020-07-02 2020-07-02 Heterosexual [facility] 15:12:44 15:12:44 Health social history 2020-07-02 2020-07-02 reviewed today [facility] reviewed E&M 15:12:44 15:12:44 Health is there any 2020-07-02 2020-07-02 No [facility] chance that you 15:12:44 15:12:44 Health could be ? tobacco use 2020-07-02 2020-07-02 [facility] (cigarettes, 15:12:44 15:12:44 Health cigar, chew, pipe) if the patient is 2020-07-02 2020-07-02 No [facility] using/has used a 15:12:44 15:12:44 Health vaping item, Current, Former, Never Used, Not asked time of call 2020-06-23 2020-06-23 06/23/2020 10:27 [facility] 10:27:41 10:27:41 Health sex at 2016-06-16 2016-06-16 Female [facility] 08:28:26 08:28:26 Health Occupation #1 2016-06-16 2016-06-16 [employer] [facility] 08:28:26 08:28:26 Health Tobacco Comment 2015-03-04 2015-03-04 began smoking [facility] 00:00:00 00:00:00 cessation on 02/13/15 @ Alcohol Comment 2012-08-10 2012-08-10 recovery 2000 [facility] 00:00:00 00:00:00 Sex [birth year] At [birth year] [place] Swapnil alth 00:00:00 00:00:00 Smoking Status Start Date Stop Date Source Tobacco smoking consumption Univ [facility] Branch Smokes tobacco daily 2022-06-19 00:00:00 [facility] Medications Ordered Filled Start Stop Current Ordering Indication Dosage Frequency Signature Comments Components Source Medication Medication Date Date Medication? Clinician (SIG) Name Name metoprolol 2021-08 Yes [id number] 12.5mg Take 0.5 Univers succinate 0-24 tablets by ity of XL 25 mg 24 00:00: mouth [place] hr tablet 00 the Medical morning. Branch aspirin 81 2021-08 Yes [id number] 81mg Take 1 U nivers mg chewable 0-24 tablet by ity of tablet 00:00: mouth in [place] 00 the Medical morning. Branch clopidogreL 2021-08 Yes [id number] 75mg Take 1 Univers 75 mg 0-24 tablet by ity of tablet 00:00: mouth in [place] 00 the Medical morning. Branch metoprolol 2021-08 Yes [id number] 12.5mg Take 0.5 Univers succinate 0-24 tablets by ity of XL 25 mg 24 00:00: [place] hr tablet 00 the Medical morning. Branch aspirin 81 2021-08 Yes [id number] 81mg Take 1 U nivers mg chewable 0-24 tablet by ity of tablet 00:00: mouth in [place] 00 the Medical morning. Branch clopidogreL 2021-08 Yes [id number] 75mg Take 1 Univers 75 mg 0-24 tablet by ity of tablet 00:00: mouth in [place] 00 the Medical morning. Branch metoprolol 2021-08 Yes [id number] 12.5mg Take 0.5 Univers succinate 0-24 tablets by ity of XL 25 mg 24 00:00: [place] hr tablet 00 the Medical morning. Branch aspirin 81 2021-08 Yes [id number] 81mg Take 1 U nivers mg chewable 0-24 tablet by ity of tablet 00:00: mouth in [place] 00 the Medical morning. Branch clopidogreL 2021-08 Yes [id number] 75mg Take 1 Univers 75 mg 0-24 tablet by ity of tablet 00:00: mouth in [place] 00 the Medical morning. Branch metoprolol 2021-08 Yes [id number] 12.5mg Take 0.5 Univers succinate 0-24 tablets by ity of XL 25 mg 24 00:00: [place] hr tablet 00 the Medical morning. Branch aspirin 81 2021-08 Yes [id number] 81mg Take 1 U nivers mg chewable 0-24 tablet by ity of tablet 00:00: mouth in [place] 00 the Medical morning. Branch clopidogreL 2021-08 Yes [id number] 75mg Take 1 Univers 75 mg 0-24 tablet by ity of tablet 00:00: mouth in [place] 00 the Medical morning. Branch metoprolol 2021-08 Yes [id number] 12.5mg Take 0.5 Univers succinate 0-24 tablets by ity of XL 25 mg 24 00:00: mouth [place] hr tablet 00 the Medical morning. Branch aspirin 81 2021-08 Yes [id number] 81mg Take 1 U nivers mg chewable 0-24 tablet by ity of tablet 00:00: mouth in [place] 00 the Medical morning. Branch clopidogreL 2021-08 Yes [id number] 75mg Take 1 Univers 75 mg 0-24 tablet by ity of tablet 00:00: mouth in [place] 00 the Medical morning. Branch metoprolol 2021-08 Yes [id number] 12.5mg Take 0.5 Univers succinate 0-24 tablets by ity of XL 25 mg 24 00:00: [place] hr tablet 00 the Medical morning. Branch aspirin 81 2021-08 Yes [id number] 81mg Take 1 U nivers mg chewable 0-24 tablet by ity of tablet 00:00: mouth in [place] 00 the Medical morning. Branch clopidogreL 2021-08 Yes [id number] 75mg Take 1 Univers 75 mg 0-24 tablet by ity of tablet 00:00: mouth in [place] 00 the Medical morning. Branch metoprolol 2021-08 Yes [id number] 12.5mg Take 0.5 Univers succinate 0-24 tablets by ity of XL 25 mg 24 00:00: [place] hr tablet 00 the Medical morning. Branch aspirin 81 2021-08 Yes [id number] 81mg Take 1 U nivers mg chewable 0-24 tablet by ity of tablet 00:00: mouth in [place] 00 the Medical morning. Branch clopidogreL 2021-08 Yes [id number] 75mg Take 1 Univers 75 mg 0-24 tablet by ity of tablet 00:00: mouth in [place] 00 the Medical morning. Branch metoprolol 2021-08 Yes [id number] 12.5mg Take 0.5 Univers succinate 0-24 tablets by ity of XL 25 mg 24 00:00: [place] hr tablet 00 the Medical morning. Branch aspirin 81 2021-08 Yes [id number] 81mg Take 1 U nivers mg chewable 0-24 tablet by ity of tablet 00:00: mouth in [place] 00 the Medical morning. Branch clopidogreL 2021-08 Yes [id number] 75mg Take 1 Univers 75 mg 0-24 tablet by ity of tablet 00:00: mouth in [place] the Medical morning. Branch nicotine 2021-08 Yes 1{patch 1 Patch, Un silvia (NICODERM) 0-23 } Topical, ity o f 21 mg/24 hr 17:00: Administer [place] patch 1 00 over 24 Medical Patch Hours, Branch Q24H, First dose on [place] 06/20/22 at 1200, Until Discontinu ed, Routine nicotine 2021-08- No 1{patch 1 Patch, U nivers (NICODERM) 0-23 10-23 } Topical, ity of 21 mg/24 hr 17:00: 20:52 Administer [place] patch 1 00 :26 over 24 Medical Patch Hours, Branch Q24H, First dose on 06/20/22 at 1200, Until Discontinu ed, Routine pantoprazol 2021-08 Yes 40mg 40 mg, Univ ers e 0-23 Oral, ity of (PROTONIX) 14:00: DAILY, [place] EC tablet 00 First dose Medi gaby 40 mg on [place] Branch 06/20/22 at 0900, Until Discontinu ed, Routine metoprolol 2021-08 Yes 12.5mg 12.5 mg, U nivers succinate 0-23 Oral, ity of XL (TOPROL 14:00: DAILY, [place] XL) tablet 00 First dose Med ical 12.5 mg on [place] Branch 06/20/22 at 0900, Until Discontinu ed, Routine FLUoxetine 2021-08 Yes 60mg 60 mg, Unive rs (PROZAC) 0-23 Oral, ity of capsule 60 14:00: DAILY, [place] mg 00 First dose Medical on [facility] 06/20/22 at 0900, Until Discontinu ed, Routine insulin 2021-08 Yes 40U 40 Units, Unive rs glargine 0-23 Subcutaneo ity o f (LANTUS 14:00: [place], DAILY, [place] U-100) 00 First dose Medical injection (after Branch 40 Units last modificati on) on [place] 06/20/22 at 0900, Until Discontinu ed, Routine pantoprazol 2021-08- No 40mg 40 mg, Uni vers e 06-20 Oral, ity of (PROTONIX) 14:00: 20:52 DAILY, [place] EC tablet 00 :26 First dose Medi gaby 40 mg on [facility] 06/20/22 at 0900, Until Discontinu ed, Routine metoprolol 2021-08- No 12.5mg 12.5 mg, Univers succinate 06-20 Oral, ity of XL (TOPROL 14:00: 20:52 DAILY, [place] XL) tablet 00 :26 First dose Med ical 12.5 mg on [facility] 06/20/22 at 0900, Until Discontinu ed, Routine FLUoxetine 2021-08- No 60mg 60 mg, Univ ers (PROZAC) 06-20 Oral, ity of capsule 60 14:00: 20:52 DAILY, [place] mg 00 :26 First dose Medical on [facility] 06/20/22 at 0900, Until Discontinu ed, Routine insulin 2021-08- No 40U 40 Units, Univ ers glargine 0-20 06- Subcutaneo ity of (LANTUS 14:00: 20:52 us, DAILY, [place] as U-100) 00 :26 First dose Medical injection (after Branch 40 Units last modificati on) on [place] 06/20/22 at 0900, Until Discontinu ed, Routine insulin 2021-08 Yes 20U inject 20 Unive rs lispro, 0-23 Units ity of human, 100 13:52: under [place] unit/mL 26 skin in Medical injection the Branch morning and 20 Units at noon and 20 Units in the evening. inject before meals. methadone 5 2021-08 Yes 5mg Take 5 mg U nivers mg tablet 0-23 by mouth ity of 13:52: at [place] [address] bedtime. Medical Branch HYDROcodone 2021-08 Yes 1{tbl} Take 1 Un silvia -acetaminop 0-23 tablet by ity of hen ([employer]) 13:52: mouth [place] 10-325 mg 26 every 6 Medical tablet (six) Branch hours as needed. loratadine 2021-08 Yes Take by Univ ers 10 mg 0-23 mouth. ity of capsule 13:52: [place] [address] Medical Branch morphine ER 2021-08 Yes 15mg Take 15 mg Univers 15 mg 12 hr 0-23 by mouth ity of tablet 13:52: in the [place] [address] morning Medical and 15 mg Branch in the evening. insulin 2021-08 Yes 20U inject 20 Unive rs lispro, 0-23 Units ity of human, 100 13:52: under the [place] unit/mL 26 skin in Medical injection the Branch morning and 20 Units at noon and 20 Units in the evening. inject before meals. methadone 5 2021-08 Yes 5mg Take 5 mg U nivers mg tablet 0-23 by mouth ity of 13:52: at [place] [address] bedtime. Medical Branch HYDROcodone 2021-08 Yes 1{tbl} Take 1 Un silvia -acetaminop 0-23 tablet by ity of hen ([employer]) 13:52: mouth [place] 10-325 mg 26 every 6 Medical tablet (six) Branch hours as needed. loratadine 2021-08 Yes Take by Univ ers 10 mg 0-23 mouth. ity of capsule 13:52: [place] [address] Medical [place] morphine ER 2021-08 Yes 15mg Take 15 mg Univers 15 mg 12 hr 0-23 by mouth ity of tablet 13:52: in the [place] [address] morning Medical and 15 mg Branch in the evening. insulin 2021-08 Yes 20U inject 20 Unive rs lispro, 0-23 Units ity of human, 100 13:52: under the [place] unit/mL 26 skin in Medical injection the Branch morning and 20 Units at noon and 20 Units in the evening. inject before meals. methadone 5 2021-08 Yes 5mg Take 5 mg U nivers mg tablet 0-23 by mouth ity of 13:52: at [place] [address] bedtime. Medical Branch HYDROcodone 2021-08 Yes 1{tbl} Take 1 Un silvia -acetaminop 0-23 tablet by ity of hen (NORCO) 13:52: mouth [place] 10-325 mg 26 every 6 Medical tablet (six) Branch hours as needed. loratadine 2021-08 Yes Take by Univ ers 10 mg 0-23 mouth. ity of capsule 13:52: [address] Branch morphine ER 2021-08 Yes 15mg Take 15 mg Univers 15 mg 12 hr 0-23 by mouth ity of tablet 13:52: in the [place] [address] morning Medical and 15 mg Branch in the evening. insulin 2021-08 Yes 20U inject 20 Unive rs lispro, 0-23 Units ity of human, 100 13:52: under [place] unit/mL 26 skin in Medical injection the Branch morning and 20 Units at noon and 20 Units in the evening. inject before meals. methadone 5 2021-08 Yes 5mg Take 5 mg U nivers mg tablet 0-23 by mouth ity of 13:52: at [place] [address] bedtime. Medical Branch HYDROcodone 2021-08 Yes 1{tbl} Take 1 Un silvia -acetaminop 0-23 tablet by ity of hen (NORCO) 13:52: mouth [place] 10-325 mg 26 every 6 Medical tablet (six) Branch hours as needed. loratadine 2021-08 Yes Take by Univ ers 10 mg 0-23 mouth. ity of capsule 13:52: [address] morphine ER 2021-08 Yes 15mg Take 15 mg Univers 15 mg 12 hr 0-23 by mouth ity of tablet 13:52: in the [place] [address] morning Medical and 15 mg Branch in the evening. insulin 2021-08 Yes 20U inject 20 Unive rs lispro, 0-23 Units ity of human, 100 13:52: under the [place] unit/mL 26 skin in Medical injection the Branch morning and 20 Units at noon and 20 Units in the evening. inject before meals. methadone 5 2021-08 Yes 5mg Take 5 mg U nivers mg tablet 0-23 by mouth ity of 13:52: at [place] [address] bedtime. Medical Branch HYDROcodone 2021-08 Yes 1{tbl} Take 1 Un silvia -acetaminop 0-23 tablet by ity of hen (NORCO) 13:52: mouth [place] 10-325 mg 26 every 6 Medical tablet (six) Branch hours as needed. loratadine 2021-08 Yes Take by Univ ers 10 mg 0-23 mouth. ity of capsule 13:52: [address] Branch morphine ER 2021-08 Yes 15mg Take 15 mg [facility] 15 mg 12 hr 0-23 by mouth ity of tablet 13:52: in the [place] [address] morning Medical and 15 mg Branch in the evening. insulin 2021-08 Yes 20U inject 20 Unive rs lispro, 0-23 Units ity of human, 100 13:52: under the [place] unit/mL 26 skin in Medical injection the Branch morning and 20 Units at noon and 20 Units in the evening. inject before meals. methadone 5 2021-08 Yes 5mg Take 5 mg U nivers mg tablet 0-23 by mouth ity of 13:52: at [place] [address] bedtime. Medical Branch HYDROcodone 2021-08 Yes 1{tbl} Take 1 Un silvia -acetaminop 0-23 tablet by ity of hen (NORCO) 13:52: mouth [place] 10-325 mg 26 every 6 Medical tablet (six) Branch hours as needed. loratadine 2021-08 Yes Take by Univ ers 10 mg 0-23 mouth. ity of capsule 13:52: [address] Branch morphine ER 2021-08 Yes 15mg Take 15 mg [facility] 15 mg 12 hr 0-23 by mouth ity of tablet 13:52: in the [place] [address] morning Medical and 15 mg Branch in the evening. insulin 2021-08 Yes 20U inject 20 Unive rs lispro, 0-23 Units ity of human, 100 13:52: under the [place] unit/mL 26 skin in Medical injection the Branch morning and 20 Units at noon and 20 Units in the evening. inject before meals. methadone 5 2021-08 Yes 5mg Take 5 mg U nivers mg tablet 0-23 by mouth ity of 13:52: at [place] [address] bedtime. Medical Branch HYDROcodone 2021-08 Yes 1{tbl} Take 1 Un silvia -acetaminop 0-23 tablet by ity of hen (NORCO) 13:52: mouth [place] 10-325 mg 26 every 6 Medical tablet (six) Branch hours as needed. loratadine 2021-08 Yes Take by Univ ers 10 mg 0-23 mouth. ity of capsule 13:52: [address] morphine ER 2021-08 Yes 15mg Take 15 mg [facility] 15 mg 12 hr 0-23 by mouth ity of tablet 13:52: in the [place] [address] morning Medical and 15 mg Branch in the evening. insulin 2021-08 Yes 20U inject 20 Unive rs lispro, 0-23 Units ity of human, 100 13:52: under the [place] unit/mL 26 skin in Medical injection the Branch morning and 20 Units at noon and 20 Units in the evening. inject before meals. methadone 5 2021-08 Yes 5mg Take 5 mg U nivers mg tablet 0-23 by mouth ity of 13:52: at [place] [address] bedtime. Medical Branch HYDROcodone 2021-08 Yes 1{tbl} Take 1 Un silvia -acetaminop 0-23 tablet by ity of hen (NORCO) 13:52: mouth [place] 10-325 mg 26 every 6 Medical tablet (six) Branch hours as needed. loratadine 2021-08 Yes Take by [place] [facility] ers 10 mg 0-23 mouth. ity of capsule 13:52: [address] morphine ER 2021-08 Yes 15mg Take 15 mg [facility] 15 mg 12 hr 0-23 by mouth ity of tablet 13:52: in the [place] [address] morning Medical and 15 mg Branch in the evening. trimethoben 2021-08 Yes 100mg 100 mg, Un silvia zamide 0-23 Intramuscu ity of (TIGAN) 13:33: lar, [place] injection 50 Q6HPRN, Medical 100 mg Starting Branch on 06/20/22 at 0833, Until Discontinu ed, Routine, Nausea and Vomiting (N/V) trimethoben 2021-08 No 100mg 100 mg, U nivers zamide 0-23 10-23 Intramuscu ity of (TIGAN) 13:33: 20:52 lar, [place] injection 50 :26 Q6HPRN, Medical 100 mg Starting Branch on 06/20/22 at 0833, Until 06/20/22 at 1552, Routine, Nausea and Vomiting (N/V) ondansetron 2021-08 Yes 4mg 4 mg, Slow Univers (ZOFRAN 0-23 IV Push, ity of (PF)) 13:33: Q6HPRN, [place] injection 4 14 Nausea and Me dical mg Vomiting Branch (N/V), Starting on 06/20/22 at 0833
Do ses of ondansetro n 16 mg and above need to be administer ed via IV piggyback. For Dose >=24mg ECG monitoring is advisable.
ondansetron 2021-08 No 4mg 4 mg, Slow Univers (ZOFRAN 006-20 IV Push, ity of (PF)) 13:33: 20:52 Q6HPRN, [place] injection 4 14 :26 Nausea and Me dical mg Vomiting Branch (N/V), Starting on 06/20/22 at 0833
Do ses of ondansetro n 16 mg and above need to be administer ed via IV piggyback. For Dose >=24mg ECG monitoring is advisable.
KCL 20 2021-08 No 40meq 40 mEq, Univer s mEq/15 mL 006-20 Oral, ity of solution 40 09:30: 11:18 ONCE, 1 [place] mEq 00 :00 dose, On Medical [place] Branch 06/20/22 at 0430, Routine potassium 2021-08 No 20meq 20 mEq, IV Univers chloride in 06-20 Piggyback, i ty of water (KCL) 09:30: 13:29 Q2H ES, 2 [place] 20 mEq/100 00 :00 doses, Medical mL RTU IVPB First dose Br anch 20 mEq on [place] 06/20/22 at 0430, Last dose on [place] 06/20/22 at 0630, 100 mL atorvastati 2021-08 Yes 80mg 80 mg, Univ ers n (LIPITOR) 0-23 Oral, QHS, it y of tablet 80 02:00: First dose [place] mg 00 on [facility] 06/19/22 Branch at 2100, Until Discontinu ed, Routine atorvastati 2021-08 No 80mg 80 mg, Uni vers n (LIPITOR) 0-23 10-23 Oral, QHS, i ty of tablet 80 02:00: 20:52 First dose [place] mg 00 :26 on [facility] 06/19/22 Branch at 2100, Until Discontinu ed, Routine morphine ER 2021-08 Yes 15mg 15 mg, Univ ers (MS CONTIN) 0-23 Oral, BID, it y of 12 hr 01:00: First dose [place] tablet 15 00 on Sat Medical mg 06/19/22 Branch at 1999, Until Discontinu ed, Routine budesonide- 2021-08 Yes 2{puff} 2 Puff, Univers formoteroL 0-23 Inhalation ity of (SYMBICORT) 01:00: , BID, [place] 80-4.5 00 First dose Medical mcg/actuati on Sat Branch on inhaler 06/19/22 2 Puff at 1999, Until Discontinu ed, Routine morphine ER 2021-08- No 15mg 15 mg, Uni vers (MS CONTIN) 0-23 10-23 Oral, BID, i ty of 12 hr 01:00: 20:52 First dose [place] tablet 15 00 :26 on Sat Medical mg 06/19/22 Branch at 1999, Until Discontinu ed, Routine budesonide- 2021-08- No 2{puff} 2 Puff, Univers formoteroL 0-23 10-23 Inhalation it y of (SYMBICORT) 01:00: 20:52 , BID, [place] 80-4.5 00 :26 First dose Medical mcg/actuati on Sat Branch on inhaler 06/19/22 2 Puff at 1999, Until Discontinu ed, Routine furosemide 2021-08 Yes [id number] 40mg Take 1 U nivers 40 mg 0-23 tablet by ity of tablet 00:00: mouth [place] 00 every Medical morning Branch and evening. furosemide 2021-08 Yes [id number] 40mg Take 1 U nivers 40 mg 0-23 tablet by ity of tablet 00:00: mouth [place] 00 every Medical morning Branch and evening. furosemide 2021-08 Yes [id number] 40mg Take 1 U nivers 40 mg 0-23 tablet by ity of tablet 00:00: mouth [place] 00 every Medical morning Branch and evening. furosemide 2021-08 Yes [id number] 40mg Take 1 U nivers 40 mg 0-23 tablet by ity of tablet 00:00: mouth [place] 00 every Medical morning Branch and evening. furosemide 2021-08 Yes [id number] 40mg Take 1 U nivers 40 mg 0-23 tablet by ity of tablet 00:00: mouth [place] 00 every Medical morning Branch and evening. furosemide 2021-08 Yes [id number] 40mg Take 1 U nivers 40 mg 0-23 tablet by ity of tablet 00:00: mouth [place] 00 every Medical morning Branch and evening. furosemide 2021-08 Yes [id number] 40mg Take 1 U nivers 40 mg 0-23 tablet by ity of tablet 00:00: mouth [place] 00 every Medical morning Branch and evening. furosemide 2021-08 Yes [id number] 40mg Take 1 U nivers 40 mg 0-23 tablet by ity of tablet 00:00: mouth [place] 00 every Medical morning Branch and evening. magnesium 2021-08- No 4g 4 g, IV Univ ers sulfate in 0-22 - Piggyback, it y of water 4 19:15: 20:23 at 25 [place] gram/50 mL 00 :00 mL/hr Medical (8 %) IV Administer Branc h Piggyback 4 over 120 g Minutes, ONCE, 1 dose, On 06/19/22 at 1415, Routine HYDROcodone 2021-08 Yes 1{tbl} 1 tablet, Univers -acetaminop 0- Oral, ity of hen (NORCO) 19:13: Q6HPRN, [place] 10-325 mg 48 Starting Medica l tablet 1 on Sat Branch tablet 06/19/22 at 1413, Until Discontinu ed, Routine, Pain (scale 7-10) HYDROcodone 2021-08- No 1{tbl} 1 tablet, Univers -acetaminop 0-22 10- Oral, ity of hen (NORCO) 19:13: 20:52 Q6HPRN, [place] 10-325 mg 48 :26 Starting Medica l tablet 1 on Sat Branch tablet 06/19/22 at 1413, Until 06/20/22 at 1552, Routine, Pain (scale 7-10) albuterol 2021-08 Yes 2{puff} 2 Puff, Un silvia (VENTOLIN) 0-22 Inhalation ity of inhaler 2 19:08: , Q6HPRN, [place] Puff 57 Starting Medical on Sat Branch 06/19/22 at 1408, Until Discontinu ed, Routine, Wheezing, Shortness of Breath albuterol 2021-08- No 2{puff} 2 Puff, U nivers (VENTOLIN) 006-20 Inhalation it y of inhaler 2 19:08: 20:52 , Q6HPRN, [place] Puff 57 :26 Starting Medical on Sat Branch 06/19/22 at 1408, Until 06/20/22 at 1552, Routine, Wheezing, Shortness of Breath furosemide 2021-08 Yes 40mg 40 mg, Unive rs (LASIX) 0-22 Slow IV ity of injection 19:00: Push, [place] 40 mg 00 Q12H, Medical First dose Branch (after last modificati on) on 06/19/22 at 1400, Until Discontinu ed, Routine furosemide 2021-08 No 40mg 40 mg, Univ ers (LASIX) 06-20 Slow IV ity of injection 19:00: 20:52 Push, [place] 40 mg 00 :26 Q12H, Medical First dose Branch (after last modificati on) on 06/19/22 at 1400, Until Discontinu ed, Routine insulin 2021-08 Yes .15U/kg 4 Units Univ ers lispro 0- /d (rounded ity of (human) 17:00: from 3.835 [place] (HumaLOG 00 Units = Medical U-100) 0.15 Branch injection 4 Units/kg/d Units ay ?76.7 kg), Subcutaneo us, TID MEALS, First dose on 06/19/22 at 1200, Until Discontinu ed, Routine insulin 2021-08- No .15U/kg 4 Units Uni vers lispro -06-20 /d (rounded ity of (human) 17:00: 20:52 from 3.835 [place] (HumaLOG 00 :26 Units = Medical U-100) 0.15 Branch injection 4 Units/kg/d Units ay ?76.7 kg), Subcutaneo us, TID MEALS, First dose on 06/19/22 at 1200, Until Discontinu ed, Routine FLUoxetine 2021-08 No 40mg Take 40 mg Univers 40 mg 06-19 by mouth. ity of capsule 14:11: 00:00 [place] 35 :00 Medical Branch FLUoxetine 2021-08- No 40mg Take 40 mg Univers 40 mg 06-19 by mouth. ity of capsule 14:11: 00:00 [place] 35 :00 Medical Branch Sliding 2021-08 Yes Subcutaneo Univ ers Scale 0-22 us, TID ity of Insulin - 14:00: MEALS+HS, [place] Lispro 00 First dose Medical (HumaLOG) + (after Branch Fsbg last Testing modificati on) on 06/19/22 at 0900, Until Discontinu ed, Routine clopidogreL 2021-08 Yes 75mg 75 mg, Univ ers (PLAVIX) 75 0-22 Oral, ity of mg tablet 14:00: DAILY, [place] 75 mg 00 First dose Medical on Sat Branch 06/19/22 at 0900, Until Discontinu ed, Routine, CV Recovery to Floor
F aculty member approving Restricted medication : ANASTASIA BECERRA aspirin 2021-08 Yes 81mg 81 mg, Univers chewable 0-22 Oral, ity of tablet 81 14:00: DAILY, [place] mg 00 First dose Medical on Sat Branch 06/19/22 at 0900, Until Discontinu ed, Routine, CV Recovery to Floor Sliding 2021-08- No Subcutaneo Uni vers Scale 0-22 10-23 us, TID ity of Insulin - 14:00: 20:52 MEALS+HS, [place] Lispro 00 :26 First dose Medical (HumaLOG) + (after Branch Fsbg last Testing modificati on) on 06/19/22 at 0900, Until Discontinu ed, Routine clopidogreL 2021-08- No 75mg 75 mg, Uni vers (PLAVIX) 75 0-22 10-23 Oral, ity of mg tablet 14:00: 20:52 DAILY, [place] 75 mg 00 :26 First dose Medical on Sat Branch 06/19/22 at 0900, Until Discontinu ed, Routine, CV Recovery to Floor
F aculty member approving Restricted medication : ANASTASIA BECERRAAM aspirin 2021-08- No 81mg 81 mg, Univers chewable 0-22 10-23 Oral, ity of tablet 81 14:00: 20:52 DAILY, [place] mg 00 :26 First dose Medical on Sat Branch 06/19/22 at 0900, Until Discontinu ed, Routine, CV Recovery to Floor insulin 2021-08- No 60U 60 Units, Univ ers glargine 0-22 06-19 Subcutaneo ity of (LANTUS 14:00: 18:19 us, BID, [place] U-100) 00 :40 First dose Medical injection on Sat Branch 60 Units 06/19/22 at 0900, Until Discontinu ed, Routine glucagon 2021-08 Yes 1mg 1 mg, Univers (GLUCAGEN 0-22 Intramuscu ity of DIAGNOSTIC 13:44: lar, PRN, [place] KIT) 02 Starting Medical injection 1 on Sat Branch mg 06/19/22 at 0844, Until Discontinu ed, DULCE MARIA, Blood Glucose < or = 70 mg/dL and patient is unable to swallow or has mental changes. dextrose 50 2021-08 Yes 25mL 25 mL, Univ ers % in water 0- Slow IV ity of (D50W) 13:44: Push, PRN, [place] injection 02 Starting Medica l 25 mL on Sat Branch 06/19/22 at 0844, Until Discontinu ed, DULCE MARIA, Blood Glucose < or = 70 mg/dL and patient is unable to swallow or has mental status changes. glucagon 2021-08 No 1mg 1 mg, Univers (GLUCAGEN 0-06-20 Intramuscu ity of DIAGNOSTIC 13:44: 20:52 lar, PRN, [place] KIT) 02 :26 Starting Medical injection 1 on Sat Branch mg 06/19/22 at 0844, Until 06/20/22 at 1552, DULCE MARIA, Blood Glucose < or = 70 mg/dL and patient is unable to swallow or has mental changes. dextrose 50 2021-08- No 25mL 25 mL, Uni vers % in water 023 Slow IV ity o f (D50W) 13:44: 20:52 [place], PRN, [place] injection 02 :26 Starting Medica l 25 mL on Sat Branch 06/19/22 at 0844, Until 06/20/22 at 1552, DULCE MARIA, Blood Glucose < or = 70 mg/dL and patient is unable to swallow or has mental status changes. acetaminoph 2021-08 Yes 500mg 500 mg, Un silvia en 0- Oral, ity of (TYLENOL) 13:29: Q6HPRN, [place] tablet 500 40 Starting Medic al mg on Sat Branch 06/19/22 at 0829, Until Discontinu ed, Routine, Pain (scale 1-3), Pain (scale 4-6) nitroglycer 2021-08 Yes .4mg 0.4 mg, Uni vers in 0-22 Sublingual ity of (NITROSTAT) 13:29: , Q5MIN [place] sublingual 40 PRN, Medical tablet 0.4 Starting Branc h mg on 06/19/22 at 0829, Until Discontinu ed, Routine, Chest pain acetaminoph 2021-08- No 500mg 500 mg, U nivers en 0- 10-23 Oral, ity of (TYLENOL) 13:29: 20:52 Q6HPRN, [place] tablet 500 40 :26 Starting Medic al mg on Sat Branch 06/19/22 at 0829, Until 06/20/22 at 1552, Routine, Pain (scale 1-3), Pain (scale 4-6) nitroglycer 2021-08- No .4mg 0.4 mg, Un silvia in 0 10 Sublingual ity of (NITROSTAT) 13:29: 20:52 , Q5MIN [place] sublingual 40 :26 PRN, Medical tablet 0.4 Starting Branc h mg on 06/19/22 at 0829, Until 06/20/22 at 1552, Routine, Chest pain tirofiban 2021-08- No .075ug/ 0.075 Uni vers (AGGRASTAT) 0 10-23 kg/min mcg/kg/min ity of 5 mg in 100 13:15: 01:14 ?76.7 kg [place] mL NS (RTU) 00 :00 (6.903 Medica l IV infusion mL/hr, Branch rounded to 6.9 mL/hr), IV Infusion, CONTINUOUS , Starting on 06/19/22 at 0815, For 12 hours, CV Recovery to Floor
C rCl less than or equal to 60 mL/minute: &nbs p;Maintena nce infusion: 0.075 mcg/kg/min [place] continued for up to 18 hours.&nbs p; CO NTINUOUS for: 12 hours (MAX 18 hours)
iodixanol 2021-08- No ONCE INTRA U nivers (VISIPAQUE 06-19 PROCEDURE, it y of 320-100 mL) 12:41: 13:00 Starting [place] injection 19 :20 on [facility] Medical 06/19/22 Branch at 0741, Until 06/19/22 at 0800, Routine, CV Intraproce dure adenosine 6 2021-08- No ONCE INTRA Univers mg/1000 mL 06-19 PROCEDURE, it y of INTRACORONA 12:30: 13:00 Starting [place] RY 30 :20 on [facility] Medical injection 06/19/22 Branch for CATH at 0730, LAB Until 06/19/22 at 0800, Routine, CV Intraproce dure tirofiban 2021-08- No CONTINUOUS U nivers (AGGRASTAT) 06-19 PRN, ity of 5 mg in 100 12:25: 12:25 Starting [place] mL NS (RTU) 30 :30 on Sat Medica l IV infusion 06/19/22 Bran ch at 0725, Until Discontinu ed, CV Intraproce dure tirofiban 2021-08- No CONTINUOUS U nivers (AGGRASTAT) 06-19 PRN, ity of 5 mg in 100 12:25: 12:25 Starting [place] mL NS (RTU) 30 :30 on Sat Medica l IV infusion 06/19/22 Bran ch at 0725, Until Discontinu ed, CV Intraproce dure tirofiban 2021-08- No ONCE INTRA U nivers (AGGRASTAT 06-19 PROCEDURE, it y of CONCENTRATE 12:23: 13:00 Starting [place] ) injection 00 :20 on Sat Medica l 06/19/22 Branch at 0723, Until 06/19/22 at 0800, Routine, CV Intraproce dure NaCl 0.9% 2021-08- No CONTINUOUS U nivers (NS) bolus 06-19 PRN, ity of infusion 12:17: 12:17 [place] 19 :19 on [facility] Medical 06/19/22 Branch at 0717, Until Discontinu ed, STAT, CV Intraproce dure nitroglycer 2021-08- No ONCE INTRA Univers in (TRIDIL) 06-19 PROCEDURE, i ty of 2 mg in 10 12:01: 13:00 [place] mL D5W for 00 :20 on [facility] Cardiac 06/19/22 Branch Cath at 0701, Until [facility] 06/19/22 at 0800, Routine, CV Intraproce dure heparin 2021-08- No ONCE INTRA Uni vers 1,000 06-19 PROCEDURE, ity of unit/mL 12:01: 13:00 Starting [place] injection 00 :20 on [facility] 06/19/22 Branch at 0701, Until [facility] 06/19/22 at 0800, Routine, CV Intraproce dure lidocaine 2021-08- No ONCE INTRA U nivers 1% (PF) 06-19 PROCEDURE, ity o f (XYLOCAINE) 11:59: 13:00 Starting [place] injection 52 :20 on [facility] 06/19/22 Branch at 0659, Until [facility] 06/19/22 at 0800, Routine, CV Intraproce dure midazolam 2021-08- No ONCE INTRA U nivers (VERSED) 06-19 PROCEDURE, ity of injection 11:57: 13:00 Starting [place] 00 :20 on [facility] 06/19/22 Branch at 0657, Until [facility] 06/19/22 at 0800, Routine, CV Intraproce dure FENTanyl PF 2021-08- No ONCE INTRA Univers (SUBLIMAZE 06-19 PROCEDURE, it y of (PF)) 11:57: 13:00 Starting [place] injection 00 :20 on [facility] 06/19/22 Branch at 0657, Until [facility] 06/19/22 at 0800, Routine, CV Intraproce dure heparin 2021-08- No 12U/kg/ 12 Univer s 25,000 06-19 h Units/kg/h ity of Units/250 11:14: 13:00 r ?76.7 kg [place] mL 39 :49 (9.204 Medical (Premixed mL/hr, Branch Bag) in rounded to 0.45 % NS 9.2 mL/hr), IV Infusion, TITRATE, Parameters in Admin. Instr., Starting on [facility] 06/19/22 at 0614
CA UTION - If LMWH given in ER, AVOID bolus and start next dose/drip 12 hrs after ER dosage.&nb sp; M ust program rate using programmab le infusion pump.&nbsp ; Jie ck with the ordering provider first prior to any administra tion should the patient be on existing/a dditional anticoagul ant therapy. Rang e, Dosing and Testing: &nbs p;FOR [place] ONLY &nbs p; - aPTT < 35: & nbsp;Bolus 5000 units, increase rate 300 units/hr&n bsp; - aPTT 35-44:&nbs p; Vladislav vivi 3000 units, increase rate 200 units/hr&n bsp; - aPTT 45-54:&nbs p; In crease rate 100 units/hr&n bsp; - aPTT 55-85:&nbs p; NO CHANGE&nbs p; - aPTT 86-95:&nbs p; De crease rate 100 units/hr&n bsp; - aPTT 96-120:&nb sp; H old 30 minutes, decrease rate 150 units/hr&n bsp; - aPTT > 120: Hold 60 minutes, decrease rate 200 units/hr&n bsp; Check aPTT 6 hours after initiation , then Q6H after every change, aPTT Q12H once therapeuti c levels are reached.&n bsp; &nbs p; __ &n bsp;FOR [facility] ONLY - aPTT < 40: & nbsp;Bolus 5000 units, increase rate 300 units/hr&n bsp; - aPTT 40-49:&nbs p; Vladislav vivi 3000 units, increase rate 200 units/hr&n bsp; - aPTT 50-59:&nbs p;&nbs p;Increase rate 100 units/hr&n bsp; - aPTT 60-85:&nbs p; NO CHANGE&nbs p; - aPTT 86-95:&nbs p; De crease rate 100 units/hr&n bsp; - aPTT 96-120:&nb sp; H old 30 minutes, decrease rate 150 units/hr&n bsp; - aPTT > 120: Hold 60 minutes, decrease rate 200 units/hr&n bsp; Check aPTT 6 hours after initiation , then Q6H after every change, aPTT Q12H once therapeuti c levels are reached.&n bsp; DO NOT ADJUST INITIAL BOLUS OR INITIAL INFUSION RATE.
insulin 2021-08 No 7U 7 Units, Unive rs regular 06-19 Slow IV ity of human 10:45: 09:42 Push, [place] (HUMULIN R) 00 :00 ONCE, 1 Medic al injection 7 dose, On Bran ch Units 06/19/22 at 0545, STAT
In dication for insulin: Hyperglyce amrit FENTanyl PF 2021-08- No 75ug 75 mcg, Un silvia (SUBLIMAZE 06-19 Slow IV ity o f (PF)) 10:30: 09:34 Push, [place] injection 00 :00 ONCE, 1 Medical 75 mcg dose, On Branch 06/19/22 at 0530, Routine clopidogreL 2021-08- No 600mg 600 mg, U nivers (PLAVIX) -06-19 Oral, ity of 300 mg 10:00: 09:20 ONCE, 1 [place] tablet 600 00 :00 dose, On Medic al mg Sat Branch 06/19/22 at 0500, DULCE MARIA ondansetron 2021-08- No 4mg 4 mg, Slow Univers (ZOFRAN 006-19 IV Push, ity of (PF)) 10:00: 08:57 ONCE, 1 [place] injection 4 00 :00 dose, On Medi gaby mg Sat Branch 06/19/22 at 0500, DULCE MARIA HEPARIN 2021-08- No 4000U 4,000 Univers SODIUM 0-06-19 Units, IV ity of (PORCINE) 09:15: 09:27 Push, [place] 1,000 00 :00 ONCE, 1 Medical UNIT/ML dose, On Branch BOLUS ACS Sat ORDER SET 06/19/22 at 0415, DULCE MARIA aspirin 2021-08- No 325mg 325 mg, Unive rs tablet 325 06-19 Oral, ity of mg 09:15: 09:20 ONCE, 1 [place] 00 :00 dose, On Medical Sat Branch 06/19/22 at 0415, STAT heparin 2021-08 Yes 3000U FOR Univers (1,000 0 REBOLUSING ity of unit/mL, 10 09:10: , Starting [place] mL vial) 18 on [facility] Medical for 06/19/22 Branch Rebolusing at 0410, Until Discontinu ed, Routine
Dosing based on aPPT testing parameters (refer to continuous heparin drip order).
heparin 2021-08 Yes 12U/kg/ 12 Univers 25,000 0-22 h Units/kg/h ity of Units/250 09:10: r ?76.7 kg [place] mL 18 (9.204 Medical (Premixed mL/hr, Branch Bag) in rounded to 0.45 % NS 9.2 mL/hr), IV Infusion, TITRATE, Parameters in Admin. Instr., Starting on 06/19/22 at 0410
CA UTION - If LMWH given in ER, AVOID bolus and start next dose/drip 12 hrs after ER dosage.&nb sp; M ust program rate using programmab le infusion pump.&nbsp ; Jie ck with the ordering provider first prior to any administra tion should the patient be on existing/a dditional anticoagul ant therapy.&n bsp; Range, Dosing and Testing&nb sp; - aPTT < 40: & nbsp;Bolus 3000 units, increase rate 100 units/hr.& nbsp;- aPTT 40-49:&nbs p; In crease rate 50 units/hr. - aPTT 50-70:&nbs p; NO CHANGE.&nb sp;- aPTT 71-85:&nbs p; De crease rate 50 units/hr.& nbsp;- aPTT 86-100:&nb sp; H old 30 minutes, decrease rate 100 units/hr.& nbsp;- aPTT 101-150:&n bsp; Hold 60 minutes, decrease rate 150 units/hr.& nbsp;- aPTT > 150: Hold 60 minutes, decrease rate 300 units/hr.& nbsp;&nbsp ;Check aPTT 6 hours after initiation , then Q6H after every change, aPTT Q12H once therapeuti c levels are reached.&n bsp; DO NOT ADJUST INITIAL BOLUS OR INITIAL INFUSION RATE.
morpHINE (4 2021-08- No 4mg 4 mg, Slow Univers mg/mL) 06-19 IV Push, ity of injection 4 09:00: 08:57 ONCE, 1 [place] mg 00 :00 dose, On [facility] Branch 06/19/22 at 0400, STAT furosemide 2021-08 Yes Edema, 40mg Take 1 Alberto ris (LASIX) 40 0-20 unspecified tablet by Health mg tablet 00:00: type mouth 2 00 times daily as needed for Other (swelling) furosemide 2021-08 Yes Edema, 40mg Take 1 [place] ris (LASIX) 40 0-20 unspecified tablet by Health mg tablet 00:00: type mouth 2 00 times daily as needed for Other (swelling) furosemide 2021-08- No 40mg Take 40 mg Univers 40 mg 0-20 06-20 by mouth. ity of tablet 00:00: 00:00 [place] 00 :00 Medical Branch furosemide 2021-08- No 40mg Take 40 mg Univers 40 mg 0-20 06-20 by mouth. ity of tablet 00:00: 00:00 [place] 00 :00 Medical Branch benzocaine- 2021-08 Yes Sore throat by Mucous Malik menthoL 0-14 [facility] 15-2.3 mg 00:00: route Lozg 00 benzocaine- 2021-08 Yes Sore throat by Mucous [place] menthoL 0-14 [facility] 15-2.3 mg 00:00: route Lozg 00 benzocaine- 2021-08 Yes Sore throat by Mucous [place] menthoL 0-14 [facility] 15-2.3 mg 00:00: [...] Take 2 Malik (NEURONTIN) 0-11 tablets by He alth 600 mg 00:00: mouth 3 tablet [...] Take 2 Malik (NEURONTIN) 0-11 tablets by He alth 600 mg 00:00: mouth 3 tablet [...] Take 2 Malik (NEURONTIN) 0-11 tablets by He alth 600 mg 00:00: mouth 3 tablet 00 times daily gabapentin 2021-08 Yes 2{tbl} Take 2 Uni vers 600 mg 0-11 tablets by ity of tablet 00:00: mouth in [place] 00 the Medical morning Branch and 2 tablets at noon and 2 tablets in the evening. morphine IR 2021-1 Yes 1{tbl} Take 1 Un silvia 15 mg 0-11 tablet by ity of tablet 00:00: mouth [place] 00 every 6 Medical (six) Branch hours as needed. gabapentin 2021-08 Yes 2{tbl} Take 2 Uni vers 600 mg 0-11 tablets by ity of tablet 00:00: mouth in [place] 00 the Medical morning Branch and 2 tablets at noon and 2 tablets in the evening. morphine IR 2021-1 Yes 1{tbl} Take 1 Un silvia 15 mg 0-11 tablet by ity of tablet 00:00: mouth [place] 00 every 6 Medical (six) Branch hours as needed. gabapentin 2021- Yes 2{tbl} Take 2 Uni vers 600 mg 0-11 tablets by ity of tablet 00:00: mouth in [place] 00 the Medical morning Branch and 2 tablets at noon and 2 tablets in the evening. morphine IR 2021-1 Yes 1{tbl} Take 1 Un silvia 15 mg 0-11 tablet by ity of tablet 00:00: mouth [place] 00 every 6 Medical (six) Branch hours as needed. gabapentin 2021- Yes 2{tbl} Take 2 Uni vers 600 mg 0-11 tablets by ity of tablet 00:00: mouth in [place] 00 the Medical morning Branch and 2 tablets at noon and 2 tablets in the evening. morphine IR 2021-1 Yes 1{tbl} Take 1 Un silvia 15 mg 0-11 tablet by ity of tablet 00:00: mouth [place] 00 every 6 Medical (six) Branch hours as needed. gabapentin 2021-1 Yes 2{tbl} Take 2 Uni vers 600 mg 0-11 tablets by ity of tablet 00:00: mouth in [place] 00 the Medical morning Branch and 2 tablets at noon and 2 tablets in the evening. morphine IR 2021-1 Yes 1{tbl} Take 1 Un silvia 15 mg 0-11 tablet by ity of tablet 00:00: mouth [place] 00 every 6 Medical (six) Branch hours as needed. gabapentin 2021-1 Yes 2{tbl} Take 2 Uni vers 600 mg 0-11 tablets by ity of tablet 00:00: mouth in [place] 00 the Medical morning Branch and 2 tablets at noon and 2 tablets in the evening. morphine IR 2021-08 Yes 1{tbl} Take 1 Un silvia 15 mg 0-11 tablet by ity of tablet 00:00: mouth [place] 00 every 6 Medical (six) Branch hours as needed. gabapentin 2021-08 Yes 2{tbl} Take 2 Uni vers 600 mg 0-11 tablets by ity of tablet 00:00: mouth in [place] 00 the Medical morning Branch and 2 tablets at noon and 2 tablets in the evening. morphine IR 2021-08 Yes 1{tbl} Take 1 Un silvia 15 mg 0-11 tablet by ity of tablet 00:00: mouth [place] 00 every 6 Medical (six) Branch hours as needed. gabapentin 2021-08 Yes 2{tbl} Take 2 Uni vers 600 mg 0-11 tablets by ity of tablet 00:00: mouth in [place] 00 the Medical morning Branch and 2 tablets at noon and 2 tablets in the evening. morphine IR 2021-08 Yes 1{tbl} Take 1 Un silvia 15 mg 0-11 tablet by ity of tablet 00:00: mouth [place] 00 every 6 Medical (six) Branch hours as needed. morphine ER Yes Cancer 15mg Q.5D Take 1 Alonzo rris (MS CONTIN) 9-30 associated tablet by Health 15 mg 00:00: pain mouth 2 extended 00 times release daily tablet HYDROcodone Yes Cancer 1{tbl} Take 1 Malik -acetaminop 9-30 associated tablet by Health hen ([employer]) 00:00: pain mouth 10-325 mg 00 every 8 tablet hours as needed for Pain morphine ER 2021- No Cancer 15mg Q.5D Take 1 H arris (MS CONTIN) 9-30 10-11 associated tablet by Health 15 mg 00:00: 00:00 pain mouth 2 extended 00 :00 times release daily tablet HYDROcodone 2021- No Cancer 1{tbl} Take 1 Malik -acetaminop 9-30 10-11 associated tablet by Health hen ([facility]) 00:00: 00:00 pain mouth 10-325 mg 00 :00 every 8 tablet hours as needed for Pain morphine ER 2021- No Cancer 15mg Q.5D Take 1 H arris (MS CONTIN) 9-30 10-11 associated tablet by [facility] 15 mg 00:00: 00:00 pain mouth 2 extended 00 :00 times release daily tablet HYDROcodone 2021-0 2021- No Cancer 1{tbl} Take 1 Malik -acetaminop 9-30 10-11 associated tablet by Health hen ([employer]) 00:00: 00:00 pain mouth 10-325 mg 00 :00 every 8 tablet hours as needed for Pain morphine ER 2021-0 2021- No Cancer 15mg Q.5D Take 1 H arris (MS CONTIN) 9-30 10-11 associated tablet by [facility] 15 mg 00:00: 00:00 pain mouth 2 extended 00 :00 times release daily tablet HYDROcodone 2021-2021- No Cancer 1{tbl} Take 1 Malik -acetaminop 9-30 10-11 associated tablet by Health hen ([employer]) 00:00: 00:00 pain mouth 10-325 mg 00 :00 every 8 tablet hours as needed for Pain HYDROcodone 2021-0 202- No Cancer 1{tbl} Take 1 Malik -acetaminop -27 05-30 associated tablet by Health hen ([employer]) 00:00: 00:00 pain mouth 10-325 mg 00 :00 every 8 tablet hours as needed for Pain HYDROcodone 2021-0 2022- No Cancer 1{tbl} Take 1 Malik -acetaminop -27 05-30 associated tablet by Health hen ([employer]) 00:00: 00:00 pain mouth 10-325 mg 00 :00 every 8 tablet hours as needed for Pain HYDROcodone 2021-0 2022- No Cancer 1{tbl} Take 1 Malik -acetaminop -27 05-30 associated tablet by Health hen ([employer]) 00:00: 00:00 pain mouth 10-325 mg 00 :00 every 8 tablet hours as needed for Pain HYDROcodone 2021-0 2022- No Cancer 1{tbl} Take 1 Malik -acetaminop - 09-30 associated tablet by Health hen ([employer]) 00:00: 00:00 pain mouth 10-325 mg 00 :00 every 8 tablet hours as needed for Pain polyethylen 2021-0 Yes Cancer Mix 1 Alberto ris e glycol 9-20 associated packet (17 [facility] 3350 00:00: pain grams) (GLYCOLAX) 00 [...] and drink once daily as directed omeprazole 2022-0 Yes Gastroesoph 20mg QD Take 1 Malik (PRILOSEC) 9-20 ageal capsule by He alth 20 mg 00:00: reflux mouth delayed 00 disease, daily release unspecified capsule whether esophagitis present polyethylen Yes Cancer Mix 1 Alberto ris e glycol 9-20 associated packet ([address] [place] [address] 3350 00:00: pain grams) (GLYCOLAX) 00 into 4 to 17 gram 8 ounces oral powder of water, packet juice, soda, tea or coffee and drink once daily as directed omeprazole Yes Gastroesoph 20mg QD Take 1 Malik (PRILOSEC) 9-20 ageal capsule by He alth 20 mg 00:00: reflux mouth delayed 00 disease, daily release unspecified capsule whether esophagitis present omeprazole Yes 1{capsu Take 1 Un silvia 20 mg 9-20 le} capsule by ity of capsule 00:00: mouth in [place] the Medical morning. Branch omeprazole Yes 1{capsu Take 1 Un silvia 20 mg 9-20 le} capsule by ity of capsule 00:00: mouth in [place] the Medical morning. Branch omeprazole 0 Yes 1{capsu Take 1 Un silvia 20 mg 9-20 le} capsule by ity of capsule 00:00: mouth in [place] the Medical morning. Branch omeprazole 0 Yes 1{capsu Take 1 Un silvia 20 mg 9-20 le} capsule by ity of capsule 00:00: mouth in [place] the Medical morning. Branch omeprazole 2021-0 Yes 1{capsu Take 1 Un silvia 20 mg 9-20 le} capsule by ity of capsule 00:00: mouth in [place] the Medical morning. Branch omeprazole 2021-0 Yes 1{capsu Take 1 Un silvia 20 mg 9-20 le} capsule by ity of capsule 00:00: mouth in [place] the Medical morning. Branch omeprazole 2021-0 Yes 1{capsu Take 1 Un silvia 20 mg 9-20 le} capsule by ity of capsule 00:00: mouth in [place] the Medical morning. Branch omeprazole 2021-0 Yes 1{capsu Take 1 Un silvia 20 mg 9-20 le} capsule by ity of capsule 00:00: mouth in [place] 00 the Medical morning. Branch tropicamide 2022-0 2023- Yes Diabetes 1[drp] Administer Malik (MYDRIACYL) 05-18 [...] Malik (LASIX) 20 9-20 10-20 tablet by Hea lth mg tablet 00:00: 00:00 mouth 2 00 :00 times daily furosemide 2021- No Mild HTN 20mg Q.5D Take 1 Malki (LASIX) 20 9-20 10-20 tablet by Hea lth mg tablet 00:00: 00:00 mouth 2 [...] 1 H arris (PRINIVIL) 04-29 tablet by [facility] 10 mg 00:00: mouth tablet 00 [...] 1 H arris (PRINIVIL) 04-29 tablet by [facility] 10 mg 00:00: mouth [place] 00 daily gabapentin Yes Neuropathy 600mg Take 1 Malik (NEURONTIN) 04-29 tablet by [facility] 600 mg 00:00: mouth 3 tablet 00 [...] 1 Malik -acetaminop 04-[address] [facility] hen (NORCO) 00:00: pain mouth 10-325 mg 00 every 8 tablet hours as needed for Pain lisinopriL Yes Mild HTN 10mg QD Take 1 H arris (PRINIVIL) 04-29 tablet by [facility] 10 mg 00:00: mouth [place] 00 daily gabapentin Yes Neuropathy 600mg Take 1 Malik (NEURONTIN) 04-29 tablet by [facility] 600 mg 00:00: mouth 3 tablet 00 [...] 1 H arris (PRINIVIL) 04-29 tablet by [facility] 10 mg 00:00: mouth tablet 00 [...] dose, give 2nd dose in other nostril naloxone Yes Give 1 Unive rs mg/actuatio 04-29 dose of ity o f n nasal 00:00: naloxone [place] spray 00 in either Medical nostril at [place] first sign of opioid overdose and then immediatel y seek emergency medical assistance . If patient unresponsi ve and or breathing abnormally 2-3 minutes after 1st dose, give 2nd dose in other nostril naloxone Yes Give 1 Unive rs mg/actuatio 04-29 dose of ity o f n nasal 00:00: naloxone [place] spray 00 in either Medical nostril at [place] first sign of opioid overdose and then immediatel y seek emergency medical assistance . If patient unresponsi ve and or breathing abnormally 2-3 minutes after 1st dose, give 2nd dose in other nostril naloxone Yes Give 1 Unive rs mg/actuatio 04-29 dose of ity o f n nasal 00:00: naloxone [place] spray 00 in either Medical nostril at [place] first sign of opioid overdose and then immediatel y seek emergency medical assistance . If patient unresponsi ve and or breathing abnormally 2-3 minutes after 1st dose, give 2nd dose in other nostril naloxone Yes Give 1 Unive rs mg/actuatio 04-29 dose of ity o f n nasal 00:00: naloxone [place] spray 00 in either Medical nostril at [place] first sign of opioid overdose and then immediatel y seek emergency medical assistance . If patient unresponsi ve and or breathing abnormally 2-3 minutes after 1st dose, give 2nd dose in other nostril naloxone Yes Give 1 Unive rs mg/actuatio 04-29 dose of ity o f n nasal 00:00: naloxone [place] spray 00 in either Medical nostril at [place] first sign of opioid overdose and then immediatel y seek emergency medical assistance . If patient unresponsi ve and or breathing abnormally 2-3 minutes after 1st dose, give 2nd dose in other nostril naloxone 4 Yes Give 1 Unive rs mg/actuatio 04-29 dose of ity o f n nasal 00:00: naloxone [place] spray 00 in either Medical nostril at [place] first sign of opioid overdose and then immediatel y seek emergency medical assistance . If patient unresponsi ve and or breathing abnormally 2-3 minutes after 1st dose, give 2nd dose in other nostril naloxone 4 Yes Give 1 Unive rs mg/actuatio 04-29 dose of ity o f n nasal 00:00: naloxone [place] spray 00 in either Medical nostril at [place] first sign of opioid overdose and then immediatel y seek emergency medical assistance . If patient unresponsi ve and or breathing abnormally 2-3 minutes after 1st dose, give 2nd dose in other nostril naloxone 4 Yes Give 1 Unive rs mg/actuatio 04-29 dose of ity o f n nasal 00:00: naloxone [place] spray 00 in either Medical nostril at [place] first sign of opioid overdose and then immediatel y seek emergency medical assistance . If patient unresponsi ve and or breathing abnormally 2-3 minutes after 1st dose, give 2nd dose in other nostril gabapentin 2021- No Neuropathy 600mg Take 1 Malik (NEURONTIN) 04-2911 tablet by He alth 600 mg 00:00: 00:00 mouth 3 tablet 00 :00 times daily gabapentin 2021- No Neuropathy 600mg Take 1 Malik (NEURONTIN) 04-29 1011 tablet by He alth 600 mg 00:00: 00:00 mouth 3 tablet 00 :00 times daily gabapentin 2021- No Neuropathy 600mg Take 1 Malik (NEURONTIN) 04-2911 tablet by He alth 600 mg 00:00: 00:00 mouth 3 tablet 00 :00 times daily morphine ER 2021- No Cancer 15mg Q.5D Take 1 H arris (MS CONTIN) 04-[address] [facility] 15 mg 00:00: 00:00 pain mouth 2 [...] arris (MS CONTIN) 04-29 associated tablet by [facility] 15 mg 00:00: 00:00 pain mouth 2 extended 00 :00 times release daily tablet HYDROcodone 2021-0 2021- No Cancer 1{tbl} Take 1 Malik -acetaminop 04-29 associated tablet by [facility]) 00:00: 00:00 pain mouth 10-325 mg 00 :00 every 8 tablet hours as needed for Pain HYDROcodone 2021-0 2021- No Cancer 1{tbl} Take 1 Malik -acetaminop 04-29 associated tablet by [facility]) 00:00: 00:00 pain mouth 10-325 mg 00 :00 every 8 tablet hours as needed for Pain HYDROcodone 2021-0 202- No Cancer 1{tbl} Take 1 Malik -acetaminop 04-29 associated tablet by [facility]) 00:00: 00:00 pain mouth 10-325 mg 00 :00 every 8 tablet hours as needed for Pain HYDROcodone 2021-0 2021- No Cancer 1{tbl} Take 1 Malik -acetaminop 04-29 associated tablet by [facility]) 00:00: 00:00 pain mouth 10-325 mg 00 :00 every 8 tablet hours as needed for Pain nicotine 2021-2021- No 2mg Place 2 mg Alonzo rris polacrilex 04-23 inside Health (NICORELIEF 22:23: 00:00 cheek ) 2 mg Gum 05 :00 every 2 hours. nicotine 2021-[address]- [address] 2 mg Alonzo [...] 40mg Take 40 mg Malik (PROZAC) 40 -23 04- episode of by mouth Health mg [...] N 04-23 d type 2 under the [facility] NPH U-100 10:50: 00:00 diabetes skin INSULIN) 55 :00 mellitus 100 unit/mL with injection hyperglycem ia insulin NPH 2021- No Uncontrolle Inject King (HUMULIN N 04-23 d type 2 under the [facility] NPH U-100 10:50: 00:00 diabetes skin INSULIN) 55 :00 mellitus 100 unit/mL with injection hyperglycem ia insulin NPH 2021- No Uncontrolle Inject King (HUMULIN N 04-23 d type 2 under the [facility] NPH U-100 10:50: 00:00 diabetes skin INSULIN) 55 :00 mellitus 100 unit/mL with injection hyperglycem ia insulin NPH 2021- No Uncontrolle Inject King (HUMULIN N 04-23 d type 2 under the [facility] NPH U-100 10:50: 00:00 diabetes skin INSULIN) 55 :00 mellitus 100 unit/mL with injection hyperglycem ia insulin NPH 2021- No Uncontrolle Inject King (HUMULIN N 04-23 d type 2 under the [facility] NPH U-100 10:50: 00:00 diabetes skin INSULIN) 55 :00 mellitus 100 unit/mL with injection hyperglycem ia insulin NPH 2021- No Uncontrolle Inject King (HUMULIN N 04-23 d type 2 under the [facility] NPH U-100 10:50: 00:00 diabetes skin INSULIN) [...] (GLUCOPHAGE 04-23 d type 2 tablet by [facility] ) 850 mg 00:00: diabetes mouth 2 tablet 00 mellitus times with daily with hyperglycem meals ia metoprolol Yes Primary 25mg QD Take 1 Alonzo rris succinate 04-[address] [facility] (TOPROL XL) 00:00: n mouth 25 mg 00 daily extended release tablet blood Yes Diabetes Use as Malik glucose 04-23 mellitus directed [facility] meter kit 00:00: without to check 00 complicatio blood n glucose blood Yes Diabetes 1{each} Use 4 Joe is glucose 04-[address] [facility] test strips 00:00: without daily . 00 complicatio n lancets 28 Yes Diabetes 1{each} Use 4 Malik gauge 04-23 mellitus times Health 00:00: without daily . 00 complicatio n atorvastati Yes Diabetes 80mg Take 2 Malik n (LIPITOR) 04-[address] [facility] 40 mg 00:00: without mouth at tablet 00 complicatio bedtime n nightly insulin Yes Uncontrolle 80U Q.5D Inject 80 Malik detemir 04-[address] d [address] [facility] U-100 00:00: diabetes under the (LEVEMIR 00 mellitus skin 2 U-100 with times INSULIN) hyperglycem daily 100 unit/mL ia injection lidocaine Yes sciatica 1{patch QD Apply 1 Malik (LIDODERM) 04-23 } Patch to [facility] 5 % patch 00:00: skin as 00 directed daily Leave patch(es) on for up to 12 hours, then 12 hours off. budesonide- Yes Reactive 2{puff} Q.5D Inhale 2 Malik formoteroL 04-23 airway puff by [facility] (SYMBICORT) 00:00: disease, mouth 2 80-4.5 00 mild time a mcg/actuati intermitten day. Rinse on inhaler t, mouth uncomplicat after each ed use. albuterol Yes Reactive 2{puff} Inhale 2 Malik 90 04-[address] [facility] mcg/actuati 00:00: disease, mouth 4 on inhaler 00 mild times intermitten daily as t, needed for uncomplicat Wheezing ed nitroGLYCER Yes Ischemic Dissolve 1 Malik IN 04-[address] [facility] (NITROSTAT) 00:00: disease under the 0.4 [...] iting INSULIN Yes Diabetes Q.5D Use to [facility] is SYRINGE 0.5 8 mellitus inject He alth mL 00:00: without medication 30GX5/16" 00 complicatio 2 times syringe-nee n daily. Use dle a new syringe each time. gabapentin Yes Neuropathy 400mg Take 1 Malik (NEURONTIN) 04-23 capsule by alth 400 mg 00:00: mouth 3 capsule 00 times daily insulin 0 Yes Diabetes Sliding Alberto ris lispro 8 mellitus scale if Healt h (HUMALOG 00:00: without glucose U-100 00 complicatio 201-250 INSULIN) n inject 3 100 unit/mL Units injection under the skin; If 251-300 inject 6 Units; If 301-350 inject 9 Units. Check blood sugar 30 minutes before meals. metFORMIN Yes Uncontrolle 850mg Q.5D Take 1 Malik (GLUCOPHAGE 04-23 d type [address] [facility] ) 850 mg 00:00: diabetes mouth 2 tablet 00 mellitus times with daily with hyperglycem meals ia metoprolol Yes Primary 25mg QD Take 1 Alonzo rris succinate [address] [facility] (TOPROL XL) 00:00: n mouth 25 mg 00 daily extended release tablet blood Yes Diabetes Use as Malik glucose 8-26 mellitus directed [facility] meter kit 00:00: without to check 00 complicatio blood n glucose blood Yes Diabetes 1{each} Use 4 Joe is glucose 8- mellitus times [facility] test strips 00:00: without daily . 00 complicatio n lancets 28 2021-0 Yes Diabetes 1{each} Use 4 Malik gauge 8- mellitus times Health 00:00: without daily . 00 complicatio n atorvastati Yes Diabetes 80mg Take 2 Malik n (LIPITOR) 8- mellitus tablets by [facility] 40 mg 00:00: without mouth at tablet 00 complicatio bedtime n nightly insulin Yes Uncontrolle 80U Q.5D Inject 80 Malik detemir 26 [address] type [address] [facility] U-100 00:00: diabetes under the (LEVEMIR [...] budesonide- Yes Reactive 2{puff} Q.5D Inhale 2 [facility] formoteroL - airway puff by [facility] (SYMBICORT) 00:00: disease, mouth 2 80-4.5 00 mild time a mcg/actuati intermitten day. Rinse on inhaler t, mouth uncomplicat after each ed use. albuterol Yes Reactive 2{puff} Inhale 2 [facility] 90 8-[address] [facility] mcg/actuati 00:00: disease, mouth 4 on inhaler 00 mild times intermitten daily as t, needed for uncomplicat Wheezing ed nitroGLYCER Yes Ischemic Dissolve 1 Malik IN 04-[address] [facility] (NITROSTAT) 00:00: disease under the 0.4 mg 00 tongue sublingual every 5 tablet minutes as needed, up to 3 times. If chest pain persists, call 911 HYDROcodone Yes Ovarian 1{tbl} Take 1 King -acetaminop 8- mass tablet by [facility] hen (NORCO) 00:00: mouth 5-325 mg [...] 50mg Take 1 Harri s (ULTRAM) 50 8- associated tablet by [facility] mg tablet 00:00: pain mouth 00 every 6 hours as needed for Pain INSULIN Yes Diabetes Q.5D Use to Joe is SYRINGE 0.5 8-26 mellitus inject He alth mL 00:00: without medication 30GX5/16" 00 complicatio 2 times syringe-nee n daily. Use dle a new syringe each time. insulin Yes Diabetes Sliding Alberto ris lispro 8- mellitus scale if Healt h (HUMALOG 00:00: without glucose U-100 00 complicatio 201-250 INSULIN) n inject 3 100 unit/mL Units injection under the skin; If 251-300 inject 6 Units; If 301-350 inject 9 Units. Check blood sugar 30 minutes before meals. metFORMIN Yes Uncontrolle 850mg Q.5D Take 1 Malik (GLUCOPHAGE 8- d type [address] [facility] ) 850 mg 00:00: diabetes mouth 2 tablet 00 mellitus times with daily with hyperglycem meals ia metoprolol Yes Primary 25mg QD Take 1 Alonzo rris succinate 04-23 hypertensio tablet by [facility] (TOPROL XL) 00:00: n mouth 25 mg 00 daily extended release tablet blood Yes Diabetes Use as Malik glucose 8 mellitus directed [facility] meter kit 00:00: without to check 00 complicatio blood n glucose blood 0 Yes Diabetes 1{each} Use 4 [facility] is glucose 8- mellitus times [facility] test strips 00:00: without daily . 00 complicatio n lancets 28 0 Yes Diabetes 1{each} Use 4 Malik gauge 8- mellitus times Health 00:00: without daily . 00 complicatio n atorvastati Yes Diabetes 80mg Take 2 Malik n (LIPITOR) [address] [facility] 40 mg 00:00: without mouth at [...] budesonide- Yes Reactive 2{puff} Q.5D Inhale 2 [facility] formoteroL 04-23 airway puff by [facility] (SYMBICORT) 00:00: disease, mouth 2 80-4.5 00 mild time a mcg/actuati intermitten day. Rinse on inhaler t, mouth uncomplicat after each ed use. albuterol Yes Reactive 2{puff} Inhale 2 [facility] 90 - airway Puffs by [facility] mcg/actuati 00:00: disease, mouth 4 on inhaler 00 mild times intermitten daily as t, needed for uncomplicat Wheezing ed nitroGLYCER Yes Ischemic Dissolve 1 Malik IN 04-[address] [facility] (NITROSTAT) 00:00: disease under the 0.4 mg 00 tongue sublingual every 5 tablet minutes as needed, up to 3 times. If chest pain persists, call 911 ondansetron Yes Endometrial 8mg Take 1 [facility] (ZOFRAN) 8 04-23 cancer tablet by alth mg tablet 00:00: mouth 00 every 8 hours on Day 2 - 4, then every 8 hours as needed for nausea/vom iting INSULIN Yes Diabetes Q.5D Use to [facility] is SYRINGE 0.5 04-23 mellitus inject He [...] (GLUCOPHAGE 04-23 d type [address] [facility] ) 850 mg 00:00: diabetes mouth 2 tablet 00 mellitus times with daily with hyperglycem meals ia metoprolol Yes Primary 25mg QD Take 1 Alonzo rris succinate 04-[address] [facility] (TOPROL XL) 00:00: n mouth 25 mg 00 daily extended release tablet blood Yes Diabetes Use as Malik glucose 04-23 mellitus directed Heal th meter kit 00:00: without to check 00 complicatio blood n glucose blood Yes Diabetes 1{each} Use 4 Joe is glucose 04-[address] [facility] test strips 00:00: without daily . 00 complicatio n lancets 28 Yes Diabetes 1{each} Use 4 Malik gauge - mellitus times Health 00:00: without daily . 00 complicatio n atorvastati Yes Diabetes 80mg Take 2 [facility] n (LIPITOR) 04-[address] [facility] 40 mg 00:00: without mouth at tablet 00 complicatio bedtime n nightly insulin Yes Uncontrolle 80U Q.5D Inject 80 [facility] detemir 04-[address] d type [address] [facility] U-100 00:00: diabetes under the (LEVEMIR 00 mellitus skin 2 U-100 with times INSULIN) hyperglycem daily 100 unit/mL ia injection lidocaine Yes sciatica 1{patch QD Apply 1 [facility] (LIDODERM) 04-23 } Patch to [facility] 5 % patch 00:00: skin as 00 directed daily Leave patch(es) on for up to 12 hours, then 12 hours off. budesonide- Yes Reactive 2{puff} Q.5D Inhale 2 [facility] formoteroL 04-23 airway puff by [facility] (SYMBICORT) 00:00: disease, mouth 2 80-4.5 00 mild time a mcg/actuati intermitten day. Rinse on inhaler t, mouth uncomplicat after each ed use. albuterol Yes Reactive 2{puff} Inhale 2 [facility] 90 04-[address] [facility] mcg/actuati 00:00: disease, mouth 4 on inhaler 00 mild times intermitten daily as t, needed for uncomplicat Wheezing ed nitroGLYCER Yes Ischemic Dissolve 1 Malik IN 04-[address] [facility] (NITROSTAT) 00:00: disease under the 0.4 mg 00 tongue sublingual every 5 tablet minutes as needed, up to 3 times. If chest pain persists, call 911 ondansetron Yes Endometrial 8mg Take 1 [facility] (ZOFRAN) 8 04-23 cancer tablet by alth [...] (GLUCOPHAGE 04-23 d type 2 tablet by [facility] ) 850 mg 00:00: diabetes mouth 2 tablet 00 mellitus times with daily with hyperglycem meals ia metoprolol Yes Primary 25mg QD Take 1 Alonzo rris succinate 04-23 hypertensio tablet by [facility] (TOPROL XL) 00:00: n mouth 25 mg 00 daily extended release tablet blood Yes Diabetes Use as Malik glucose 04-23 mellitus directed Heal th meter kit 00:00: without to check 00 complicatio blood n glucose blood Yes Diabetes 1{each} Use 4 Joe is glucose 04-[address] [facility] test strips 00:00: without daily . 00 complicatio n lancets 28 0 Yes Diabetes 1{each} Use 4 Malik gauge - mellitus times Health 00:00: without daily . 00 complicatio n atorvastati Yes Diabetes 80mg Take 2 Malik n (LIPITOR) 04-23 mellitus tablets by [facility] 40 mg 00:00: without mouth at tablet [...] 2 Malik formoteroL 04-23 airway puff by [facility] (SYMBICORT) 00:00: disease, mouth 2 80-4.5 00 mild time a mcg/actuati intermitten day. Rinse on inhaler t, mouth uncomplicat after each ed use. albuterol Yes Reactive 2{puff} Inhale 2 Malik 90 04-[address] [facility] mcg/actuati 00:00: disease, mouth 4 on inhaler 00 mild times intermitten daily as t, needed for uncomplicat Wheezing ed nitroGLYCER Yes Ischemic Dissolve 1 Malik IN 04-[address] [facility] (NITROSTAT) 00:00: disease under the 0.4 mg 00 tongue sublingual every 5 tablet minutes as needed, up to 3 times. If chest pain persists, call 911 ondansetron Yes Endometrial 8mg Take 1 [facility] (ZOFRAN) 8 04-23 cancer tablet by alth mg tablet 00:00: mouth 00 every 8 hours on Day 2 - 4, then every 8 hours as needed for nausea/vom iting INSULIN Yes Diabetes Q.5D Use to [facility] is SYRINGE 0.5 04-23 mellitus inject He [...] (GLUCOPHAGE 04-23 d type [address] [facility] ) 850 mg 00:00: diabetes mouth 2 tablet 00 mellitus times with daily with hyperglycem meals ia metoprolol Yes Primary 25mg QD Take 1 Alonzo rris succinate 04-[address] [facility] (TOPROL XL) 00:00: n mouth 25 mg 00 daily extended release tablet blood Yes Diabetes Use as Malik glucose 04-23 mellitus directed [facility] meter kit 00:00: without to check 00 complicatio blood n glucose blood Yes Diabetes 1{each} Use 4 Joe is glucose 04-[address] [facility] test strips 00:00: without daily . 00 complicatio n lancets 28 Yes Diabetes 1{each} Use 4 Malik gauge 04-23 mellitus times Health 00:00: without daily . 00 complicatio n atorvastati Yes Diabetes 80mg Take 2 Malik n (LIPITOR) 04-[address] [facility] 40 mg 00:00: without mouth at tablet 00 complicatio bedtime n nightly insulin Yes Uncontrolle 80U Q.5D Inject 80 Malik detemir 04-[address] [facility] U-100 00:00: diabetes under the (LEVEMIR [...] 2 Malik formoteroL 04-23 airway puff by [facility] (SYMBICORT) 00:00: disease, mouth 2 80-4.5 00 mild time a mcg/actuati intermitten day. Rinse on inhaler t, mouth uncomplicat after each ed use. albuterol Yes Reactive 2{puff} Inhale 2 Malik 90 -[address] [facility] mcg/actuati 00:00: disease, mouth 4 on inhaler 00 mild times intermitten daily as t, needed for uncomplicat Wheezing ed nitroGLYCER Yes Ischemic Dissolve 1 Malik IN 04-[address] [facility] (NITROSTAT) 00:00: disease under the 0.4 mg 00 tongue sublingual every 5 tablet minutes as needed, up to 3 times. If chest pain persists, call 911 ondansetron Yes Endometrial 8mg Take 1 Malik (ZOFRAN) 8 26 cancer tablet by [facility] alth mg tablet 00:00: mouth 00 every 8 hours on Day 2 - 4, then every 8 hours as needed for nausea/vom iting INSULIN Yes Diabetes Q.5D Use to Joe is SYRINGE 0.5 8-26 mellitus inject He alth mL 00:00: without medication 30GX5/16" 00 complicatio 2 times syringe-nee n daily. Use dle a new syringe each time. albuterol Yes 2{puff} Inhale 2 U nivers 90 8-26 Puffs. ity of mcg/actuati 00:00: [place] on inhaler 00 Medical Branch atorvastati Yes 80mg Take 80 mg Univers n 40 mg 8-26 by mouth. ity of tablet 00:00: [address] blood sugar Yes 1{each} 1 Each. [facility] diagnostic 04-23 ity of strip 00:00: [address] Blood-Gluco Yes Use as Univ ers se Meter 04-23 directed ity of Kit 00:00: to check [place] [address] blood [facility] glucose [place] budesonide- Yes 2{puff} Inhale 2 [facility] formoteroL 8-26 Puffs. ity of 80-4.5 00:00: [place] mcg/actuati Medical on inhaler Branch insulin Yes Sliding Univers lispro, 8- scale if ity of human, 100 00:00: [place] unit/mL 00 201-250 Medical injection inject 3 Branch Units under the skin; If 251-300 inject 6 Units; If 301-350 inject 9 Units. Check blood sugar 30 minutes before meals. insulin Yes 60U inject 60 Unive rs detemir 8-26 Units ity of U-100 00:00: under the [place] (LEVEMIR 00 skin in Medical U-100 the Branch INSULIN) morning. 100 unit/mL injection Insulin Yes inject Univers Syringe-Nee 8-26 under the ity of dle U-100 00:00: skin. [place] 0.5 mL 30 00 Medical gauge x Branch 5/16" Syrg metFORMIN 0 Yes 850mg Take 850 Uni vers 850 mg 8-26 mg by ity of tablet 00:00: mouth. [place] 00 Medical Branch ondansetron Yes 8mg Take 8 mg U nivers 8 mg tablet 8-26 by mouth. ity of 00:00: [place] [address] Medical Branch nitroglycer Yes Dissolve 1 Univers in 0.4 mg 8-26 tablet ity of sublingual 00:00: under the [place] tablet 00 tongue Medical every 5 Branch minutes as needed, up to 3 times. If chest pain persists, call 911 albuterol Yes 2{puff} Inhale 2 U nivers 90 8-26 Puffs. ity of mcg/actuati 00:00: [place] on inhaler Medical Branch atorvastati Yes 80mg Take 80 mg Univers n 40 mg 8-26 by mouth. ity of tablet 00:00: [address] blood sugar 0 Yes 1{each} 1 Each. Univers diagnostic 04-23 ity of strip 00:00: [address] Blood-Gluco Yes Use as Univ ers se Meter 04-23 directed ity of Kit 00:00: to check [place] [address] blood [facility] glucose [place] budesonide- Yes 2{puff} Inhale 2 Univers formoteroL 8-26 Puffs. ity of 80-4.5 00:00: [place] mcg/actuati Medical on inhaler Branch insulin Yes Sliding Univers lispro, 8- scale if ity of human, 100 00:00: glucose [place] unit/mL 00 201-250 Medical injection inject 3 Branch Units under the skin; If 251-300 inject 6 Units; If 301-350 inject 9 Units. Check blood sugar 30 minutes before meals. insulin 0 Yes 60U inject 60 Unive rs detemir 8-26 Units ity of U-100 00:00: under the [place] (LEVEMIR 00 skin in Medical U-100 the Branch INSULIN) morning. 100 unit/mL injection Insulin Yes inject Univers Syringe-Nee -26 under the ity of dle U-100 00:00: skin. [place] 0.5 mL 30 00 Medical gauge x Branch 5/16" Syrg metFORMIN 0 Yes 850mg Take 850 Uni vers 850 mg 8-26 mg by ity of tablet 00:00: mouth. [place] 00 Medical Branch ondansetron Yes 8mg Take 8 mg U nivers 8 mg tablet 8-26 by mouth. ity of 00:00: [place] [facility] nitroglycer Yes Dissolve 1 Univers in 0.4 mg 8-26 tablet ity of sublingual 00:00: under the [place] tablet 00 tongue Medical every 5 Branch minutes as needed, up to 3 times. If chest pain persists, call 911 albuterol Yes 2{puff} Inhale 2 U nivers 90 8-26 Puffs. ity of mcg/actuati 00:00: [place] on inhaler 00 Medical Branch atorvastati Yes 80mg Take 80 mg Univers n 40 mg 8-26 by mouth. ity of tablet 00:00: [place] [facility] blood sugar Yes 1{each} 1 Each. Univers diagnostic 826 ity of strip 00:00: [place] [facility] Blood-Gluco Yes Use as Univ ers se Meter 26 directed ity of Kit 00:00: to check blood [facility] glucose Branch budesonide- Yes 2{puff} Inhale 2 Univers formoteroL 8-26 Puffs. ity of 80-4.5 00:00: [place] mcg/actuati Medical on inhaler Branch insulin Yes Sliding Univers lispro, 8-26 scale if ity of human, 100 00:00: glucose [place] unit/mL 00 201-250 Medical injection inject 3 Branch Units under the skin; If 251-300 inject 6 Units; If 301-350 inject 9 Units. Check blood sugar 30 minutes before meals. insulin Yes 60U inject 60 Unive rs detemir 8-26 Units ity of U-100 00:00: under the [place] (LEVEMIR 00 skin in Medical U-100 the Branch INSULIN) morning. 100 unit/mL injection Insulin Yes inject Univers Syringe-Nee 8-26 under the ity of dle U-100 00:00: skin. [place] 0.5 mL 30 00 Medical gauge x Branch 5/16" Syrg metFORMIN Yes 850mg Take 850 Uni vers 850 mg 8-26 mg by ity of tablet 00:00: mouth. Medical Branch ondansetron Yes 8mg Take 8 mg U nivers 8 mg tablet 8-26 by mouth. ity of 00:00: [place] [facility] nitroglycer Yes Dissolve 1 Univers in 0.4 mg 8-26 tablet ity of sublingual 00:00: under the [place] tablet 00 tongue Medical every 5 Branch minutes as needed, up to 3 times. If chest pain persists, call 911 albuterol Yes 2{puff} Inhale 2 U nivers 90 8-26 Puffs. ity of mcg/actuati 00:00: [place] on inhaler 00 Medical Branch atorvastati Yes 80mg Take 80 mg Univers n 40 mg 8-26 by mouth. ity of tablet 00:00: [place] [facility] [place] blood sugar Yes 1{each} 1 Each. [facility] diagnostic 04-23 ity of strip 00:00: [place] [facility] [place] Blood-Gluco Yes Use as Univ ers se Meter 04-23 directed ity of Kit 00:00: to check [place] [address] blood [facility] glucose Branch budesonide- Yes 2{puff} Inhale 2 Univers formoteroL 8-26 Puffs. ity of 80-4.5 00:00: [place] mcg/actuati Medical on inhaler Branch insulin Yes Sliding Univers lispro, 8-26 scale if ity of human, 100 00:00: glucose [place] unit/mL 00 201-250 Medical injection inject 3 Branch Units under the skin; If 251-300 inject 6 Units; If 301-350 inject 9 Units. Check blood sugar 30 minutes before meals. insulin 0 Yes 60U inject 60 Unive rs detemir 8-26 Units ity of U-100 00:00: under the [place] (LEVEMIR 00 skin in Medical U-100 the Branch INSULIN) morning. 100 unit/mL injection Insulin Yes inject Univers Syringe-Nee 8-26 under the ity of dle U-100 00:00: skin. [place] 0.5 mL 30 00 Medical gauge x Branch 5/16" Syrg metFORMIN Yes 850mg Take 850 Uni vers 850 mg 8-26 mg by ity of tablet 00:00: mouth. [place] [address] Medical Branch ondansetron Yes 8mg Take 8 mg U nivers 8 mg tablet 8-26 by mouth. ity of 00:00: [place] [facility] nitroglycer Yes Dissolve 1 Univers in 0.4 mg 8-26 tablet ity of sublingual 00:00: under the [place] tablet 00 tongue Medical every 5 Branch minutes as needed, up to 3 times. If chest pain persists, call 911 albuterol Yes 2{puff} Inhale 2 U nivers 90 8-26 Puffs. ity of mcg/actuati 00:00: [place] on inhaler 00 Medical Branch atorvastati Yes 80mg Take 80 mg Univers n 40 mg 8-26 by mouth. ity of tablet 00:00: [place] [facility] blood sugar Yes 1{each} 1 Each. Univers diagnostic 04-23 ity of strip 00:00: [place] [facility] Blood-Gluco Yes Use as Univ ers se Meter 04-23 directed ity of Kit 00:00: to check [place] [address] blood [facility] glucose [place] budesonide- Yes 2{puff} Inhale 2 Univers formoteroL 8-26 Puffs. ity of 80-4.5 00:00: [place] mcg/actuati 00 Medical on inhaler Branch insulin Yes Sliding Univers lispro, 8- scale if ity of human, 100 00:00: glucose [place] unit/mL 00 201-250 Medical injection inject 3 Branch Units under the skin; If 251-300 inject 6 Units; If 301-350 inject 9 Units. Check blood sugar 30 minutes before meals. insulin Yes 60U inject 60 Unive rs detemir 8-26 Units ity of U-100 00:00: under the [place] (LEVEMIR 00 skin in Medical U-100 the Branch INSULIN) morning. 100 unit/mL injection Insulin Yes inject Univers Syringe-Nee 04-23 under the ity of dle U-100 00:00: skin. [place] 0.5 mL 30 00 Medical gauge x Branch 516" Syrg metFORMIN Yes 850mg Take 850 Uni vers 850 mg 8-26 mg by ity of tablet 00:00: mouth. [address] ondansetron Yes 8mg Take 8 mg U nivers 8 mg tablet 8-26 by mouth. ity of 00:00: [place] [address] Medical Branch nitroglycer Yes Dissolve 1 Univers in 0.4 mg 8-26 tablet ity of sublingual 00:00: under the [place] tablet 00 tongue Medical every 5 Branch minutes as needed, up to 3 times. If chest pain persists, call 911 albuterol Yes 2{puff} Inhale 2 U nivers 90 8-26 Puffs. ity of mcg/actuati 00:00: [place] on inhaler 00 Medical Branch atorvastati Yes 80mg Take 80 mg Univers n 40 mg 8-26 by mouth. ity of tablet 00:00: [address] blood sugar Yes 1{each} 1 Each. Univers diagnostic 04-23 ity of strip 00:00: [address] Blood-Gluco Yes Use as Univ ers se Meter 04-23 directed ity of Kit 00:00: to check [place] [address] blood [facility] glucose Branch budesonide- Yes 2{puff} Inhale 2 Univers formoteroL 8-26 Puffs. ity of 80-4.5 00:00: [place] mcg/actuati 00 Medical on inhaler Branch insulin Yes Sliding Univers lispro, 8- scale if ity of human, 100 00:00: glucose [place] unit/mL 00 201-250 Medical injection inject 3 Branch Units under the skin; If 251-300 inject 6 Units; If 301-350 inject 9 Units. Check blood sugar 30 minutes before meals. insulin Yes 60U inject 60 Unive rs detemir 8-26 Units ity of U-100 00:00: under the [place] (LEVEMIR 00 skin in Medical U-100 the Branch INSULIN) morning. 100 unit/mL injection Insulin Yes inject Univers Syringe-Nee -26 under the ity of dle U-100 00:00: skin. [place] 0.5 mL 30 00 Medical gauge x Branch 16" Syrg metFORMIN Yes 850mg Take 850 Uni vers 850 mg 8-26 mg by ity of tablet 00:00: mouth. [address] Branch ondansetron 2022-0 Yes 8mg Take 8 mg U nivers 8 mg tablet 8-26 by mouth. ity of 00:00: [place] [address] Medical Branch nitroglycer Yes Dissolve 1 Univers in 0.4 mg 8-26 tablet ity of sublingual 00:00: under the [place] tablet 00 tongue Medical every 5 Branch minutes as needed, up to 3 times. If chest pain persists, call 911 albuterol Yes 2{puff} Inhale 2 U nivers 90 8-26 Puffs. ity of mcg/actuati 00:00: [place] on inhaler 00 Medical Branch atorvastati Yes 80mg Take 80 mg Univers n 40 mg 8-26 by mouth. ity of tablet 00:00: [address] blood sugar Yes 1{each} 1 Each. Univers diagnostic 04-23 ity of strip 00:00: [address] Blood-Gluco Yes Use as Univ ers se Meter 04-23 directed ity of Kit 00:00: to check [place] [address] blood [facility] glucose [place] budesonide- Yes 2{puff} Inhale 2 Univers formoteroL 8-26 Puffs. ity of 80-4.5 00:00: [place] mcg/actuati 00 Medical on inhaler Branch insulin Yes Sliding Univers lispro, 8- scale if ity of human, 100 00:00: glucose [place] unit/mL 00 201-250 Medical injection inject 3 Branch Units under the skin; If 251-300 inject 6 Units; If 301-350 inject 9 Units. Check blood sugar 30 minutes before meals. insulin 0 Yes 60U inject 60 Unive rs detemir 8-26 Units ity of U-100 00:00: under the [place] (LEVEMIR 00 skin in Medical U-100 the Branch INSULIN) morning. 100 unit/mL injection Insulin Yes inject Univers Syringe-Nee -26 under the ity of dle U-100 00:00: skin. [place] 0.5 mL 30 00 Medical gauge x Branch 516" Syrg metFORMIN 0 Yes 850mg Take 850 Uni vers 850 mg 8-26 mg by ity of tablet 00:00: mouth. [address] Branch ondansetron Yes 8mg Take 8 mg U nivers 8 mg tablet 8-26 by mouth. ity of 00:00: [place] [address] Medical Branch nitroglycer Yes Dissolve 1 Univers in 0.4 mg 8-26 tablet ity of sublingual 00:00: under the [place] tablet 00 tongue Medical every 5 Branch minutes as needed, up to 3 times. If chest pain persists, call 911 albuterol Yes 2{puff} Inhale 2 U nivers 90 8-26 Puffs. ity of mcg/actuati 00:00: [place] on inhaler 00 Medical Branch atorvastati Yes 80mg Take 80 mg Univers n 40 mg 8-26 by mouth. ity of tablet 00:00: [address] blood sugar Yes 1{each} 1 Each. Univers diagnostic 04-23 ity of strip 00:00: [address] Blood-Gluco Yes Use as Univ ers se Meter 04-23 directed ity of Kit 00:00: to check [place] [address] blood [facility] glucose [place] budesonide- Yes 2{puff} Inhale 2 Univers formoteroL 8-26 Puffs. ity of 80-4.5 00:00: [place] mcg/actuati 00 Medical on inhaler Branch insulin Yes Sliding Univers lispro, 8- scale if ity of human, 100 00:00: glucose [place] unit/mL 00 201-250 Medical injection inject 3 Branch Units under the skin; If 251-300 inject 6 Units; If 301-350 inject 9 Units. Check blood sugar 30 minutes before meals. insulin Yes 60U inject 60 Unive rs detemir 8-26 Units ity of U-100 00:00: under the [place] (LEVEMIR 00 skin in Medical U-100 the Branch INSULIN) morning. 100 unit/mL injection Insulin Yes inject Univers Syringe-Nee -26 under the ity of dle U-100 00:00: skin. [place] 0.5 mL 30 00 Medical gauge x Branch 16" Syrg metFORMIN Yes 850mg Take 850 Uni vers 850 mg 8-26 mg by ity of tablet 00:00: mouth. [address] Branch ondansetron Yes 8mg Take 8 mg U nivers 8 mg tablet 8-26 by mouth. ity of 00:00: [place] 00 Medical Branch nitroglycer Yes Dissolve 1 Univers in 0.4 mg 8-26 tablet ity of sublingual 00:00: under the [place] tablet 00 tongue Medical every 5 Branch minutes as needed, up to 3 times. If chest pain persists, call 911 metoprolol 2021- No 1{tbl} Take 1 Un silvia succinate -23 06-23 tablet by ity of XL 25 mg 24 00:00: 00:00 mouth [place] hr tablet 00 :00 every Medical morning. Branch metoprolol 2021- No 1{tbl} Take 1 Un silvia succinate 8-23 06-23 tablet by ity of XL 25 mg 24 00:00: 00:00 mouth [place] hr tablet 00 :00 every Medical morning. Branch gabapentin 2021- No Neuropathy 400mg Take 1 Malik (NEURONTIN) 04-23 capsule by H [facility]alth 400 mg 00:00: 00:00 mouth 3 capsule 00 :00 times daily HYDROcodone 2021- No Ovarian 1{tbl} Take 1 Malik -acetaminop 04-23 mass tablet by Swapnil moreno (NORCO) 00:00: 00:00 mouth 5-325 mg 00 [...] Malik -acetaminop 04-23 mass tablet by Swapnil dixon hen (NORCO) 00:00: 00:00 mouth 5-325 mg 00 :00 every 6 tablet hours as needed for Pain (severe pain) traMADoL 2021- No Cancer 50mg Take 1 Joe is (ULTRAM) 50 04-23 associated tablet by Health mg tablet 00:00: 00:00 pain mouth 00 :00 every 6 hours as needed for Pain gabapentin 2021-2021- No Neuropathy 400mg Take 1 Malik (NEURONTIN) 04-23 capsule by H [facility]alth 400 mg 00:00: 00:00 mouth 3 capsule 00 :00 times daily HYDROcodone 2021-2021- No Ovarian 1{tbl} Take 1 Malik -acetaminop 04-23 mass tablet by He alth hen ([employer]) 00:00: 00:00 mouth 5-325 mg 00 :00 every 6 tablet hours as needed for Pain (severe pain) traMADoL 2021- No Cancer 50mg Take 1 Joe is (ULTRAM) 50 04-23 associated tablet by Health mg tablet 00:00: 00:00 pain mouth 00 :00 every 6 hours as needed for Pain gabapentin 2021-2021- No Neuropathy 400mg Take 1 [facility]ik (NEURONTIN) 04-23 capsule by H [facility]alth 400 mg 00:00: 00:00 mouth 3 capsule 00 :00 times daily HYDROcodone 2021-2021- No Ovarian 1{tbl} Take 1 Malik -acetaminop 04-23 mass tablet by [facility] al[facility] hen ([employer]) 00:00: 00:00 mouth 5-325 mg 00 :00 every 6 tablet hours as needed for Pain (severe pain) traMADoL 2021-2021- No Cancer 50mg Take 1 Joe is (ULTRAM) 50 04-23 associated tablet by Health mg tablet 00:00: 00:00 pain mouth 00 :00 every 6 hours as needed for Pain gabapentin 2021- No Neuropathy 400mg Take 1 [facility] (NEURONTIN) 04-23 capsule by H [facility]alth 400 mg 00:00: 00:00 mouth 3 capsule 00 :00 times daily HYDROcodone 2021-2021- No Ovarian 1{tbl} Take 1 Malik -acetaminop 04-23 mass tablet by He alth hen ([employer]) 00:00: 00:00 mouth 5-325 mg 00 :00 every 6 tablet hours as needed for Pain (severe pain) traMADoL 2021-2021- No Cancer 50mg Take 1 Joe is [...] hyperglycem daily 100 unit/mL ia injection ondansetron No Endometrial 8mg Take 1 [facility] (ZOFRAN) 04-23 cancer tablet by H [facility]alth mg tablet 00:00: 00:00 mouth 00 :00 every 8 hours on Day 2 - 4, then every 8 hours as needed for nausea/vom iting lidocaine No sciatica 1{patch QD Apply 1 Malik [...] Dissolve 1 Malik IN 04-[address] [facility] (NITROSTAT) 00:00: 00:00 disease under the 0.4 mg 00 :00 tongue sublingual every 5 tablet minutes as needed, up to 3 times. If chest pain persists, call 911 budesonide- 2021- No Reactive 2{puff} Q.5D Inhale 2 [facility] formoteroL 04-14 airway Puffs by alth (SYMBICORT) 00:00: 00:00 disease, mouth 2 80-4.5 00 :00 mild times mcg/actuati intermitten daily on inhaler t, Inhale 2 uncomplicat puff by ed mouth 2 time a day. Rinse mouth after each use. albuterol 2021- No Reactive 2{puff} Inhale 2 [facility] 90 04-14 airway Puffs by Health mcg/actuati 00:00: 00:00 disease, mouth 4 on inhaler 00 :00 mild times intermitten daily as t, needed for uncomplicat Wheezing ed nitroGLYCER 2021- No Ischemic Dissolve 1 [place] 04-14 heart [facility] (NITROSTAT) 00:00: 00:00 disease under the 0.4 [...] albuterol 2021- No Reactive 2{puff} Inhale 2 [place] [address] 04-14 airway Puffs by Health mcg/actuati 00:00: 00:00 disease, mouth 4 on inhaler 00 :00 mild times intermitten daily as t, needed for uncomplicat Wheezing ed nitroGLYCER 2021- No Ischemic Dissolve 1 [place] 04-14 heart [facility] (NITROSTAT) 00:00: 00:00 disease under the 0.4 mg 00 :00 tongue sublingual every 5 tablet minutes as needed, up to 3 times. If chest pain persists, call 911 budesonide- 2021- No Reactive 2{puff} Q.5D Inhale 2 [facility] formoteroL 04-14 airway Puffs by He alth (SYMBICORT) 00:00: 00:00 disease, mouth 2 80-4.5 00 :00 mild times mcg/actuati intermitten daily on inhaler t, Inhale 2 uncomplicat puff by ed mouth 2 time a day. Rinse mouth after each use. albuterol 2021- No Reactive 2{puff} Inhale 2 [place] [address] 04-14 airway Puffs by Health mcg/actuati 00:00: 00:00 disease, mouth 4 on inhaler 00 :00 mild times intermitten daily as t, needed for uncomplicat Wheezing ed nitroGLYCER 2021- No Ischemic Dissolve 1 [place] 04-14 heart [facility] (NITROSTAT) 00:00: 00:00 disease under the 0.4 [...] albuterol 2021- No Reactive 2{puff} Inhale 2 [place] [address] 04-14 airway Puffs by Health mcg/actuati 00:00: 00:00 disease, mouth 4 on inhaler 00 :00 mild times intermitten daily as t, needed for uncomplicat Wheezing ed nitroGLYCER 2021- No Ischemic Dissolve 1 [place] 04-14 [employer] (NITROSTAT) 00:00: 00:00 disease under the 0.4 mg 00 :00 tongue sublingual every 5 tablet minutes as needed, up to 3 times. If chest pain persists, call 911 budesonide- 2021- No Reactive 2{puff} Q.5D Inhale 2 [facility] formoteroL 04-14 airway Puffs by He alth (SYMBICORT) 00:00: 00:00 disease, mouth 2 80-4.5 00 :00 mild times mcg/actuati intermitten daily on inhaler t, Inhale 2 uncomplicat puff by ed mouth 2 time a day. Rinse mouth after each use. albuterol 2021- No Reactive 2{puff} Inhale 2 [place] [address] 04-14 airway Puffs by Health mcg/actuati 00:00: 00:00 disease, mouth 4 on inhaler 00 :00 mild times intermitten daily as t, needed for uncomplicat Wheezing ed nitroGLYCER 2021- No Ischemic Dissolve 1 [place] IN 04-14 heart tablet [facility] (NITROSTAT) 00:00: 00:00 disease under the 0.4 [...] albuterol 2021- No Reactive 2{puff} Inhale 2 [place] [address] 04-14 airway Puffs by [facility] mcg/actuati 00:00: 00:00 disease, mouth 4 on inhaler 00 :00 mild times intermitten daily as t, needed for uncomplicat Wheezing ed albuterol 2021- No Reactive 2{puff} Inhale 2 [place] [address] 04-14- airway Puffs by [facility] mcg/actuati 00:00: 00:00 disease, mouth 4 on inhaler 00 :00 mild times intermitten daily as t, needed for uncomplicat Wheezing ed albuterol 2021- No Reactive 2{puff} Inhale 2 [place] [address] 04-14-17 airway Puffs by Health mcg/actuati 00:00: 00:00 disease, mouth 4 on inhaler 00 :00 mild times intermitten daily as t, needed for uncomplicat Wheezing ed albuterol 2021- No Reactive 2{puff} Inhale 2 [place] [address] 04-14- airway Puffs by [facility] mcg/actuati 00:00: 00:00 disease, mouth 4 on inhaler 00 :00 mild times intermitten daily as t, needed for uncomplicat Wheezing ed albuterol 2021- No Reactive 2{puff} Inhale 2 [place] [address] 04-14-17 airway Puffs by [facility] mcg/actuati 00:00: 00:00 disease, mouth 4 on inhaler 00 :00 mild times intermitten daily as t, needed for uncomplicat Wheezing ed albuterol 2021- No Reactive 2{puff} Inhale 2 [place] 90 04-14 airway Puffs by Health mcg/actuati 00:00: 00:00 disease, mouth 4 on inhaler 00 :00 mild times intermitten daily as t, needed for uncomplicat Wheezing ed albuterol 2021- No Reactive 2{puff} Inhale 2 [place] 90 04-14 airway Puffs by Health mcg/actuati [...] 2022- Yes Encounter 1[drp] Administer Malik (MYDRIACYL) 04-1312 for 1 Drop in He alth 0.5 [...] 75-25 % topical applicator 1 Stick ferric 0 2021- No Thickened 1{vial} Alonzo rris subsulfate 04-09- endometrium [facility] (MONSEL'S) 13:45: 01:44 1.04 g/mL 00 :00 topical paste 1 Vial silver 2021- No Thickened 1{stick Alonzo rris nitrate 04-09- endometrium } Heal th applicators 13:45: 01:44 [...] Malik -acetaminop 03-18 pelvic pain tablet by [employer] ([employer]) 00:00: 12:07 mouth 5-325 mg 00 :26 every 8 tablet hours as needed for Pain gabapentin 2021- No Neuropathy 400mg Q.5D Take 1 [place] (NEURONTIN) 03-18 capsule by [facility]alth 400 mg 00:00: 00:00 mouth 2 capsule 00 :00 (two) times a day HYDROcodone 2021-0 2021- No Acute 1{tbl} Take 1 [facility]ik -acetaminop 03-18 pelvic pain tablet by [employer] ([employer]) 00:00: 12:07 mouth 5-325 mg 00 :26 every 8 tablet hours as needed for Pain gabapentin 2021- No Neuropathy 400mg Q.5D Take 1 [place] (NEURONTIN) 03-18 capsule by [facility]alth 400 mg 00:00: 00:00 mouth 2 capsule 00 :00 (two) times a day HYDROcodone 2021-2021- No Acute 1{tbl} Take 1 [facility] -acetaminop 03-18 pelvic pain tablet by Health hen ([employer]) 00:00: 12:07 mouth 5-325 mg 00 :26 every 8 tablet hours as needed for Pain gabapentin 2021-2021- No Neuropathy 400mg Q.5D Take 1 [facility] (NEURONTIN) 03-18 capsule by [facility] 400 mg 00:00: 00:00 mouth 2 capsule 00 :00 (two) times a day HYDROcodone 2021-2021- No Acute 1{tbl} Take 1 [facility] -acetaminop 03-18 pelvic pain tablet by Health hen ([employer]) 00:00: 12:07 mouth 5-325 mg 00 :26 every 8 tablet hours as needed for Pain gabapentin 2021-2021- No Neuropathy 400mg Q.5D Take 1 [facility] (NEURONTIN) 03-18 capsule by [facility] 400 mg 00:00: 00:00 mouth 2 capsule 00 :00 (two) times a day HYDROcodone 2021-2021- No Acute 1{tbl} Take 1 [facility]ik -acetaminop 03-18 pelvic pain tablet by [facility] ([employer]) 00:00: 12:07 mouth 5-325 mg 00 :26 every 8 tablet hours as needed for Pain gabapentin 2021-2021- No Neuropathy 400mg Q.5D Take 1 [facility] (NEURONTIN) 03-18 capsule by [facility] 400 mg 00:00: 00:00 mouth 2 capsule 00 :00 (two) times a day HYDROcodone 2021-2021- No Acute 1{tbl} Take 1 Malik -acetaminop 03-18 pelvic pain tablet by [facility]) 00:00: 12:07 mouth 5-325 mg 00 :26 every 8 tablet hours as needed for Pain insulin 2021-2021- No Diabetes Sliding Alonzo rris lispro 03-15 mellitus scale if [facility] (HUMALOG 00:00: 00:00 without glucose U-100 00 :00 complicatio 201-250 INSULIN) n inject 3 100 unit/mL Units injection under the skin; If 251-300 inject 6 Units; If 301-350 inject 9 Units. Check blood sugar 30 minutes before meals. insulin 2021- No Diabetes Sliding Alonzo rris lispro 03-15 mellitus scale if [facility] (HUMALOG 00:00: 00:00 without glucose U-100 00 :00 complicatio 201-250 INSULIN) n inject 3 100 unit/mL Units injection under the skin; If 251-300 inject 6 Units; If 301-350 inject 9 Units. Check blood sugar 30 minutes before meals. insulin 2021- No Diabetes Sliding Alonzo rris lispro 03-15 mellitus scale if [facility] (HUMALOG 00:00: 00:00 without glucose U-100 00 :00 complicatio 201-250 INSULIN) n inject 3 100 unit/mL Units injection under the skin; If 251-300 inject 6 Units; If 301-350 inject 9 Units. Check blood sugar 30 minutes before meals. insulin 2021- No Diabetes Sliding Alonzo rris lispro 03-15 mellitus scale if [facility] (HUMALOG 00:00: 00:00 without glucose U-100 00 :00 complicatio 201-250 INSULIN) n inject 3 100 unit/mL Units injection under the skin; If 251-300 inject 6 Units; If 301-350 inject 9 Units. Check blood sugar 30 minutes before meals. insulin 2021- No Diabetes Sliding Alonzo rris lispro 03-15 mellitus scale if [facility] (HUMALOG 00:00: 00:00 without glucose U-100 00 :00 complicatio 201-250 INSULIN) n inject 3 100 unit/mL Units injection under the skin; If 251-300 inject 6 Units; If 301-350 inject 9 Units. Check blood sugar 30 minutes before meals. insulin 2021- No Diabetes Sliding Alonzo rris lispro 03-15 mellitus scale if [facility] (HUMALOG 00:00: 00:00 without glucose U-100 [...] 6 hours as needed for Pain traMADoL 2021-0 2021- No Pelvic pain 50mg Take 1 Malik (ULTRAM) 50 03-04-17 in female tablet by [facility] tablet 00:00: 00:00 mouth 00 :00 every 6 hours as needed for Pain traMADoL 2021-0 2021- No Pelvic pain 50mg [...] capsule 00:00: by mouth 00 daily. FLUoxetine 0 Yes Medication 60mg QD Take 3 Malik (PROZAC) 20 7- refill capsules [facility] mg capsule 00:00: by mouth 00 daily. FLUoxetine 0 Yes Medication 60mg QD Take 3 [facility] (PROZAC) 20 7- refill capsules [facility] mg capsule 00:00: by mouth 00 daily. FLUoxetine 0 Yes Medication 60mg QD Take 3 [facility] (PROZAC) 20 7- refill capsules [facility] mg capsule 00:00: by mouth 00 daily. FLUoxetine 2021-0 Yes Medication 60mg QD Take 3 [facility] (PROZAC) 20 7- refill capsules [facility] mg capsule 00:00: by mouth 00 daily. FLUoxetine 2021-0 Yes 3{capsu Take 3 Un silvia 20 mg 02-26 le} capsules ity of capsule 00:00: by mouth in the Medical morning. Branch FLUoxetine 2021-0 Yes 3{capsu Take 3 Un silvia 20 mg 02-26 le} capsules ity of capsule 00:00: by mouth [place] 00 in the Medical morning. Branch FLUoxetine Yes 3{capsu Take 3 Un silvia 20 mg 7-01 le} capsules ity of capsule 00:00: by mouth [place] 00 in the Medical morning. Branch FLUoxetine 0 Yes 3{capsu Take 3 Un silvia 20 mg 7-01 le} capsules ity of capsule 00:00: by mouth [place] 00 in the Medical morning. Branch FLUoxetine 0 Yes 3{capsu Take 3 Un silvia 20 mg 7-01 le} capsules ity of capsule 00:00: by mouth [place] 00 in the Medical morning. Branch FLUoxetine Yes 3{capsu Take 3 Un silvia 20 mg 7-01 le} capsules ity of capsule 00:00: by mouth [place] 00 in the Medical morning. Branch FLUoxetine Yes 3{capsu Take 3 Un silvia 20 mg 7-01 le} capsules ity of capsule 00:00: by mouth [place] 00 in the Medical morning. Branch FLUoxetine Yes 3{capsu Take 3 Un silvia 20 mg 7-01 le} capsules ity of capsule 00:00: by mouth [place] 00 in the Medical morning. Branch insulin 2021- No Diabetes Sliding Alonzo rris [...] blood sugar 30 minutes before meals.. insulin 2021-2021- No Diabetes Sliding Alonzo rris [...] 100 day before UNIT/ML meals. injection insulin 2021-0 Yes Inject [facility], 5-11 under the [...] 59 each day. gabapentin 2022-0 Yes 400mg Q.[id number] Take 400 [facility] (Neurontin) 5-11 [id number] mg by [facility] 400 MG 11:44: [...] 59 each day. gabapentin 2022-0 Yes 400mg Q.[id number] Take 400 [facility] (Neurontin) 5-11 [id number] mg by [facility] 400 MG 11:44: [...] 59 each day. gabapentin 2022-0 Yes 400mg Q.[id number] Take 400 [facility] (Neurontin) 5-11 [id number] mg by [facility] 400 MG 11:44: [...] 59 each day. gabapentin 2021-0 Yes 400mg Q.[id number] Take 400 [facility] (Neurontin) 5-11 [id number] mg by [facility] 400 MG 11:44: 3D mouth 3 capsule 59 (three) times a day. FLUoxetine 2021-0 Yes 40mg QD Take 40 mg [facility] (PROzac) 40 5-11 by mouth 1 [facility] MG capsule 11:44: (one) time 59 each day. metoprolol 2021-0 2022- No 25mg QD Take 25 mg Malik tartrate 12-1524 by mouth Health (LOPRESSOR) 00:00: 00:00 daily 25 mg 00 :00 tablet metoprolol 2022-0 2022- No 25mg QD Take 25 mg Malik tartrate 12-15-24 by mouth Health (LOPRESSOR) 00:00: 00:00 daily 25 mg 00 :00 tablet metoprolol 2022-0 2022- No 25mg QD Take 25 mg [facility]ik tartrate 12-15-24 by mouth Health (LOPRESSOR) 00:00: 00:00 daily 25 mg 00 :00 tablet metoprolol 2022-0 2022- No 25mg QD Take 25 mg Malik tartrate 12-15-24 by mouth Health (LOPRESSOR) 00:00: 00:00 daily 25 mg 00 :00 tablet metoprolol 2022-0 2022- No 25mg QD Take 25 mg Malik tartrate 12-15-24 by mouth Health (LOPRESSOR) 00:00: 00:00 daily 25 mg 00 :00 tablet metoprolol 2022-0 2022- No 25mg QD Take 25 mg Malik tartrate 12-15-24 by mouth Health (LOPRESSOR) 00:00: 00:00 daily 25 mg 00 :00 tablet furosemide Yes Coronary 20mg QD Take 1 H arris (LASIX) 20 4-04 artery tablet by [facility] mg tablet 00:00: disease mouth 00 involving daily [place] heart without angina pectoris, unspecified vessel or lesion type furosemide Yes Coronary 20mg QD Take 1 H arris (LASIX) 20 4-04 artery tablet by [facility] mg tablet 00:00: disease mouth 00 involving daily [place] heart without angina pectoris, unspecified vessel or lesion type furosemide Yes Coronary 20mg QD Take 1 H arris (LASIX) 20 4-04 artery tablet by [facility] mg tablet 00:00: disease mouth 00 involving daily [place] heart without angina pectoris, unspecified vessel or lesion type furosemide Yes Coronary 20mg QD Take 1 H arris (LASIX) 20 4-04 artery tablet by [facility] mg tablet 00:00: disease mouth 00 involving daily [place] heart without angina pectoris, unspecified vessel or lesion type furosemide Yes Coronary 20mg QD Take 1 H arris (LASIX) 20 4-04 artery tablet by [facility] mg tablet 00:00: disease mouth 00 involving daily [place] heart without angina pectoris, unspecified vessel or lesion type furosemide Yes Coronary 20mg QD Take 1 H arris (LASIX) 20 4-04 artery tablet by [facility] mg tablet 00:00: disease mouth 00 involving daily [place] heart without angina pectoris, unspecified vessel or lesion type metFORMIN 2021- No Uncontrolle 850mg Q.5D Take 1 [facility] (GLUCOPHAGE 11-30 d type 2 tablet by [facility] ) 850 mg 00:00: 00:00 diabetes mouth 2 tablet 00 :00 mellitus times with daily hyperglycem (with ia meals) metoprolol 2021- No Primary 25mg QD Take 1 H arris succinate 11-30 hypertensio tablet by [facility] (TOPROL XL) 00:00: 00:00 n mouth 25 mg 00 :00 daily extended release tablet metFORMIN 2021- No Uncontrolle 850mg Q.5D Take 1 [facility] (GLUCOPHAGE 11-30 d type 2 tablet by [facility] ) 850 mg 00:00: 00:00 diabetes mouth 2 tablet 00 :00 mellitus times with daily hyperglycem (with ia meals) metoprolol 2021- No Primary 25mg QD Take 1 H arris succinate 11-30 hypertensio tablet by [facility] (TOPROL XL) 00:00: 00:00 n mouth 25 mg 00 :00 daily extended release tablet metFORMIN 2021- No Uncontrolle 850mg Q.5D Take 1 [facility]ik (GLUCOPHAGE 11-30 d type 2 tablet by [facility] ) 850 mg 00:00: 00:00 diabetes mouth 2 tablet 00 :00 mellitus times with daily hyperglycem (with ia meals) metoprolol 2021- No Primary 25mg QD Take 1 H arris succinate 11-30 hypertensio tablet by [facility] (TOPROL XL) 00:00: 00:00 n mouth 25 mg 00 :00 daily extended release tablet metFORMIN 2021- No Uncontrolle 850mg Q.5D Take 1 Malik (GLUCOPHAGE 11-30 d type 2 tablet by [facility] ) 850 mg 00:00: 00:00 diabetes mouth 2 tablet 00 :00 mellitus times with daily hyperglycem (with ia meals) metoprolol 2021- No Primary 25mg QD Take 1 H arris succinate 11-30 hypertensio tablet by [facility] (TOPROL XL) 00:00: 00:00 n mouth 25 mg 00 :00 daily extended release tablet metFORMIN 2021- No Uncontrolle 850mg Q.5D Take 1 Malik (GLUCOPHAGE 11-30 d type 2 tablet by [facility] ) 850 mg 00:00: 00:00 diabetes mouth 2 tablet 00 :00 mellitus times with daily hyperglycem (with ia meals) metoprolol 2021- No Primary 25mg QD Take 1 H arris succinate 11-30 hypertensio tablet by [facility] (TOPROL XL) 00:00: 00:00 n mouth 25 mg 00 :00 daily extended release tablet metFORMIN 2021- No Uncontrolle 850mg Q.5D Take 1 Malik (GLUCOPHAGE 11-30 d type 2 tablet by [facility] ) 850 mg 00:00: 00:00 diabetes mouth 2 tablet 00 :00 mellitus times with daily hyperglycem (with ia meals) metoprolol 2021- No Primary 25mg QD Take 1 H arris succinate 11-30 hypertensio tablet by [facility] (TOPROL XL) 00:00: 00:00 n mouth 25 mg 00 :00 daily extended release tablet gabapentin 2021-0 2022- No Neuropathy 400mg Q.5D Take 1 [facility]ik (NEURONTIN) 11-30 capsule by [facility] 400 mg 00:00: 00:00 mouth 2 capsule 00 :00 (two) times a day gabapentin 2-0 2022- No Neuropathy 400mg Q.5D Take 1 [facility]ik (NEURONTIN) 11-30 capsule by [facility] 400 mg 00:00: 00:00 mouth 2 capsule 00 :00 (two) times a day gabapentin 2021-0 2022- No Neuropathy 400mg Q.5D Take 1 [facility]ik (NEURONTIN) 11-30 capsule by [facility] 400 mg 00:00: 00:00 mouth 2 capsule 00 :00 (two) times a day gabapentin 2-0 2022- No Neuropathy 400mg Q.5D Take 1 [facility]ik (NEURONTIN) 11-30 capsule by [facility] 400 mg 00:00: 00:00 mouth 2 capsule 00 :00 (two) times a day gabapentin 2-0 2022- No Neuropathy 400mg Q.5D Take 1 [facility] (NEURONTIN) 11-30 capsule by [facility] 400 mg 00:00: 00:00 mouth 2 capsule 00 :00 (two) times a day gabapentin 2-0 2022- No Neuropathy 400mg Q.5D Take 1 [facility] (NEURONTIN) 11-30 capsule by [facility] 400 mg 00:00: 00:00 mouth 2 capsule 00 :00 (two) times a day aspirin 2021-0 Yes Coronary 81mg QD Chew and Alonzo rris (ASPIRIN) 11-27 artery swallow 1 [facility] 81 mg 00:00: disease tablet by chewable 00 involving mouth tablet [place] daily heart without angina pectoris, unspecified vessel or lesion type aspirin Yes Coronary 81mg QD Chew and Alonzo rris (ASPIRIN) 11-27 artery swallow 1 [facility] 81 mg 00:00: disease tablet by chewable 00 involving mouth tablet [place] daily heart without angina pectoris, unspecified vessel or lesion type aspirin Yes Coronary 81mg QD Chew and Alonzo rris (ASPIRIN) 11-27 artery swallow 1 [facility] 81 mg 00:00: disease tablet by chewable 00 involving mouth tablet [place] daily heart without angina pectoris, unspecified vessel or lesion type aspirin Yes Coronary 81mg QD Chew and Alonzo rris (ASPIRIN) 11-27 artery swallow 1 [facility] 81 mg 00:00: disease tablet by chewable 00 involving mouth tablet [place] daily heart without angina pectoris, unspecified vessel or lesion type aspirin Yes Coronary 81mg QD Chew and Alonzo rris (ASPIRIN) 11-27 artery swallow 1 [facility] 81 mg 00:00: disease tablet by chewable 00 involving mouth tablet [place] daily heart without angina pectoris, unspecified vessel or lesion type aspirin Yes Coronary 81mg QD Chew and Alonzo rris (ASPIRIN) 11-27 artery swallow 1 [facility] 81 mg 00:00: disease tablet by chewable 00 involving mouth tablet [place] daily heart without angina pectoris, unspecified vessel [...] 850mg Q.5D Take 1 [facility] (GLUCOPHAGE 11-27 04-04 d type 2 tablet by Health ) 850 mg 00:00: 00:00 diabetes mouth [...] 00:00 disease mouth 00 :00 involving daily [place] heart without angina pectoris, unspecified vessel or lesion type metoprolol 2021-2021- No Primary 25mg QD Take 1 H arris succinate 11-27 hypertensio tablet by [facility] (TOPROL XL) 00:00: 00:00 n mouth 25 mg 00 :00 daily extended release tablet metFORMIN 2021-2021- No Uncontrolle 850mg Q.5D Take 1 Malik (GLUCOPHAGE 11-27 d type 2 tablet by [facility] ) 850 mg 00:00: 00:00 diabetes mouth [...] 00:00 disease mouth 00 :00 involving daily [place] heart without angina pectoris, unspecified vessel or lesion type metoprolol 2021-0 2021- No Primary 25mg QD Take 1 H arris succinate 11-27 hypertensio tablet by [facility] (TOPROL XL) 00:00: 00:00 n mouth 25 mg 00 :00 daily extended release tablet metFORMIN 2021-0 2021- No Uncontrolle 850mg Q.5D Take 1 [facility]ik (GLUCOPHAGE 11-27 d type 2 tablet by [facility] ) 850 mg 00:00: 00:00 diabetes mouth [...] 00:00 disease mouth 00 :00 involving daily [place] heart without angina pectoris, unspecified vessel or lesion type metoprolol 2021- No Primary 25mg QD Take 1 H arris succinate 11-27 hypertensio tablet by [facility] (TOPROL XL) 00:00: 00:00 n mouth 25 mg 00 :00 daily extended release tablet metFORMIN 2021- No Uncontrolle 850mg Q.5D Take 1 [facility] (GLUCOPHAGE 11-27 d type 2 tablet by [facility] ) 850 mg 00:00: 00:00 diabetes mouth [...] 00:00 disease mouth 00 :00 involving daily [place] heart without angina pectoris, unspecified vessel or lesion type metoprolol 2021- No Primary 25mg QD Take 1 H arris succinate 11-27 hypertensio tablet by [facility] (TOPROL XL) 00:00: 00:00 n mouth 25 mg 00 :00 daily extended release tablet metFORMIN 2021-2021- No Uncontrolle 850mg Q.5D Take 1 [facility]ik (GLUCOPHAGE 11-27- d type 2 tablet by [facility] ) 850 mg 00:00: 00:00 diabetes mouth [...] 00:00 disease mouth 00 :00 involving daily [place] heart without angina pectoris, unspecified vessel or lesion type metoprolol 2021- No Primary 25mg QD Take 1 H arris succinate 11-27 hypertensio tablet by [facility] (TOPROL XL) 00:00: 00:00 n mouth 25 mg 00 :00 daily extended release tablet metFORMIN 2021- No Uncontrolle 850mg Q.5D Take 1 [facility]ik (GLUCOPHAGE 11-27 d type 2 tablet by [facility] ) 850 mg 00:00: 00:00 diabetes mouth [...] 00:00 disease mouth 00 :00 involving daily [place] heart without angina pectoris, unspecified vessel or lesion type metoprolol 2021- No Primary 25mg QD Take 1 H arris succinate 11-27 hypertensio tablet by [facility] (TOPROL XL) 00:00: 00:00 n mouth 25 mg 00 :00 daily extended release tablet insulin 2021- No Uncontrolle 10U Inject 10 Malik REGULAR 100 11-27 d type 2 Units [facility] unit/mL 00:00: 23:59 diabetes under the injection 00 :00 mellitus skin once with for 1 dose hyperglycem ia INSULIN 2021- No Preventativ Use to Malik SYRINGE 1 11-27 e RIWI inject [facility] mL 00:00: 23:59 care [...] insulin 2021- No Uncontrolle 10U Inject 10 hint REGULAR 100 11-27 d type 2 Units [...] 30GX5/16") syringe syringe-nee each time. dle insulin No Uncontrolle 10U Inject 10 Malik REGULAR 100 11-27 d type 2 Units [facility] unit/mL 00:00: 23:59 diabetes under the injection 00 :00 mellitus skin once with for 1 dose hyperglycem ia INSULIN No Preventativ Use to Malik SYRINGE 1 11-27 e health inject [facility] mL 00:00: 23:59 care medication 30GX5/16" 00 :00 once for 1 (TRUEPLUS dose. Use INSULIN 1ML a new 30GX5/16") syringe syringe-nee each time. dle (FLUOCINONI 2019-08- No Sammie Apply [facility] [place]) 0.05 % 09-01 [facility] [place] Twice a Communi CREA 00:00: 00:00 Day to ty 00 :00 affected Health areas for 10 days (HYDROXYZIN 2019-08- No Sammie TAKE 1 TAB [facility] [...] mometasone 2015-08 Yes Seasonal 1{spray QD 1 [place] by [facility] (NASONEX) 1-30 allergies } each [facility]alt [facility] 50 00:00: nostril mcg/actuati 00 route on nasal daily. spray mometasone 2015-08 Yes Seasonal 1{spray QD 1 [place] by [facility] (NASONEX) 1-30 allergies } each [facility]alt [facility] 50 00:00: nostril mcg/actuati 00 route on nasal daily. spray mometasone 2015-08 Yes Seasonal 1{spray QD 1 [place] by [facility] (NASONEX) 1-30 allergies } each [facility]alt [facility] 50 00:00: nostril mcg/actuati 00 route on nasal daily. spray mometasone 2015-08 Yes Seasonal 1{spray QD 1 [place] by [facility] (NASONEX) 1-30 allergies } each Healt [facility] 50 00:00: nostril mcg/actuati 00 route on nasal daily. spray mometasone 2015-08 Yes Seasonal 1{spray QD 1 [place] by [facility] (NASONEX) 1-30 allergies } each Healt [facility] 50 00:00: nostril mcg/actuati 00 route on nasal daily. spray mometasone 2015-08 Yes Seasonal 1{spray QD 1 [place] by [facility] (NASONEX) 1-30 allergies } each Healt [facility] 50 00:00: nostril mcg/actuati 00 route on nasal daily. spray azithromyci 2015-08- No Acute URI Take 2 Malik n 09-26- tablets by [facility] (ZITHROMAX) 00:00: 00:00 mouth on 250 mg 00 :00 the first tablet day, then take one tablet every day for the next 4 days. cetirizine 2015-08- No Acute URI 10mg QD Take 1 Malik (ZYRTEC) 10 09-26 tablet by alth mg tablet 00:00: 00:00 mouth 00 :00 daily. azithromyci 2015-08- No Acute URI Take 2 Malik n 09-26- tablets by [facility] (ZITHROMAX) 00:00: 00:00 mouth on 250 mg 00 :00 the first tablet day, then take one tablet every day for the next 4 days. cetirizine 2015-08- No Acute URI 10mg QD Take 1 [facility]ik (ZYRTEC) 10 09-26 tablet by alth mg tablet 00:00: 00:00 mouth 00 :00 daily. azithromyci 2015-08- No Acute URI Take 2 Malik n 09-26- tablets by [facility] (ZITHROMAX) 00:00: 00:00 mouth on 250 mg 00 :00 the first tablet day, then take one tablet every day for the next 4 days. cetirizine 2015-08- No Acute URI 10mg QD Take 1 [facility] (ZYRTEC) 10 09-26 tablet by [facility] mg tablet 00:00: 00:00 mouth 00 :00 daily. azithromyci 2015-08- No Acute URI Take 2 Malik n 09-[address] [facility] (ZITHROMAX) 00:00: 00:00 mouth on 250 mg 00 :00 the first tablet day, then take one tablet every day for the next 4 days. cetirizine 2015-08- No Acute URI 10mg QD Take 1 [facility] (ZYRTEC) 10 09-26 tablet by [facility] mg tablet 00:00: 00:00 mouth 00 :00 daily. azithromyci 2015-08- No Acute URI Take 2 Malik n 09-[address] [facility] (ZITHROMAX) 00:00: 00:00 mouth on 250 mg 00 :00 the first tablet day, then take one tablet every day for the next 4 days. cetirizine 2015-08- No Acute URI 10mg QD Take 1 [facility] (ZYRTEC) 10 09-26 tablet by [facility] mg tablet 00:00: 00:00 mouth 00 :00 daily. azithromyci 2015-08- No Acute URI Take 2 Malik n 09-[address] [facility] (ZITHROMAX) 00:00: 00:00 mouth on 250 [...] ty 100 UNIT/ML 00 [facility] SOLN azanneyci 2021- No Tobacco use Take 2 Malik n 05-27 disorder tablets by [facility] (ZITHROMAX) 00:00: 00:00 mouth on 250 mg 00 :00 the first tablet day, then take one tablet every day for the next 4 days. azithromyci 2021- No Tobacco use Take 2 Malik n 05-27 disorder tablets by [facility] (ZITHROMAX) 00:00: 00:00 mouth on 250 mg 00 :00 the first tablet day, then take one tablet every day for the next 4 days. azithromyci 2021- No Tobacco use Take 2 Malik n 05-27 disorder tablets by [facility] (ZITHROMAX) 00:00: 00:00 mouth on 250 mg 00 :00 the first tablet day, then take one tablet every day for the next 4 days. azithromyci 2021- No Tobacco use Take 2 Malik n 05-27 disorder tablets by [facility] (ZITHROMAX) 00:00: 00:00 mouth on 250 mg 00 :00 the first tablet day, then take one tablet every day for the next 4 days. azithromyci 2021- No Tobacco use Take 2 Malik n 05-27 disorder tablets by [facility] (ZITHROMAX) 00:00: 00:00 mouth on 250 mg 00 :00 the first tablet day, then take one tablet every day for the next 4 days. azithromyci 2021- No Tobacco use Take 2 [facility] n 05-27- disorder tablets by [facility] (ZITHROMAX) 00:00: 00:00 mouth on 250 [...] Use a new syringe each time.. blood 2015- Yes Medication Check Harri s glucose 7-12 [...] Alonzo rris SYRINGE 1mL 7-12 refill inject [facility] 30GX5/16" 00:00: medication syringe-nee 00 3 times dle daily. Use a new syringe each time.. blood Yes Medication Check Harri s glucose 7-12 refill sugars 3 Health test strips 00:00: times a 00 day. INSULIN 0 Yes Medication Use to rris SYRINGE 1mL 7-12 refill inject [facility] 30GX5/16" 00:00: medication syringe-nee 00 3 [...] 1 Malik (NEURONTIN) 03-09 refill capsule by [facility] 300 mg 00:00: 00:00 mouth 3 capsule 00 :00 times daily. metFORMIN 2021- No Medication 850mg Q.5D Take 1 [facility] (GLUCOPHAGE 03-09 refill tablet by [facility] ) 850 mg 00:00: 00:00 mouth 2 tablet 00 :00 times daily (with meals). metoprolol 2021- No Medication 12.5mg Q.5D Take 1/2 ( [facility]ik tartrate 03-09 refill 0.5) Health (LOPRESSOR) 00:00: 00:00 tablets by 25 mg 00 :00 mouth 2 tablet times daily. gabapentin 2021- No Medication 300mg Take 1 [facility] (NEURONTIN) 03-09 refill capsule by [facility] 300 mg 00:00: 00:00 mouth 3 capsule [...] 1 Malik (NEURONTIN) 03-09 refill capsule by [facility] 300 mg 00:00: 00:00 mouth 3 capsule 00 :00 times daily. metFORMIN 2021- No Medication 850mg Q.5D Take 1 [facility] (GLUCOPHAGE 03-09 refill tablet by [facility] ) 850 mg 00:00: 00:00 mouth 2 [...] 1 [facility]ik (GLUCOPHAGE 03-09 refill tablet by [facility] ) 850 mg 00:00: 00:00 mouth 2 [...] 1 [facility]ik (GLUCOPHAGE 03-09 refill tablet by [facility] ) 850 mg 00:00: 00:00 mouth 2 [...] Alonzo rris lispro 01-22 mellitus scale If [facility] (HUMALOG) 00:00: 00:00 without glucose 100 unit/mL 00 :00 complicatio >200<250 injection n inject 3 Units If >250<300 inject 6 Units If >300<35 0 inject 9Units Check blood sugar 30 minutes before meals.. insulin 2021- No Diabetes Sliding Alonzo rris lispro 01-22 mellitus scale If [facility] (HUMALOG) 00:00: 00:00 without glucose 100 unit/mL 00 :00 complicatio >200<250 injection n inject 3 Units If >250<300 inject 6 Units If >300<35 0 inject 9Units Check blood sugar 30 minutes before meals.. insulin 2021- No Diabetes Sliding Alonzo rris lispro 01-22 mellitus scale If [facility] (HUMALOG) 00:00: 00:00 without glucose 100 unit/mL 00 :00 complicatio >200<250 injection n inject 3 Units If >250<300 inject 6 Units If >300<35 0 inject 9Units Check blood sugar 30 minutes before meals.. insulin 2021- No Diabetes Sliding Alonzo rris lispro 01-22 mellitus scale If [facility] (HUMALOG) 00:00: 00:00 without glucose 100 unit/mL 00 :00 complicatio >200<250 injection n inject 3 Units If >250<300 inject 6 Units If >300<35 0 inject 9Units Check blood sugar 30 minutes before meals.. insulin 2021- No Diabetes Sliding Alonzo rris lispro 01-22 mellitus scale If [facility] (HUMALOG) 00:00: 00:00 without glucose 100 unit/mL 00 :00 complicatio >200<250 injection n inject 3 Units If >250<300 inject 6 Units If >300<35 0 inject 9Units Check blood sugar 30 minutes before meals.. ergocalcife 2016-0 Yes Diabetes [id number] Take 1 [facility]ik rol 4-27 mellitus capsule by [facility] (VITAMIN 00:00: due to mouth D2) 50,000 00 underlying weekly. unit condition capsule with diabetic nephropathy ergocalcife 2016-0 Yes Diabetes [id number] Take 1 [facility]ik rol 4-27 mellitus capsule by [facility]alt [facility] (VITAMIN 00:00: due to mouth D2) 50,000 00 underlying weekly. unit condition capsule with diabetic nephropathy ergocalcife 2016-0 Yes Diabetes [id number] Take 1 [facility]ik rol 4-27 mellitus capsule by [facility]alt [facility] (VITAMIN 00:00: due to mouth D2) 50,000 00 underlying weekly. unit condition capsule with diabetic nephropathy ergocalcife 2016-0 Yes Diabetes [id number] Take 1 [facility]ik rol 4-27 mellitus capsule by [facility]alt [facility] (VITAMIN 00:00: due to mouth D2) 50,000 00 underlying weekly. unit condition capsule with diabetic nephropathy ergocalcife 2016-0 Yes Diabetes [id number] Take 1 [facility] rol 4-27 mellitus capsule by [facility]alt [facility] (VITAMIN 00:00: due to mouth D2) 50,000 00 underlying weekly. unit condition capsule with diabetic nephropathy ergocalcife 2015-0 Yes Diabetes 05689L Take 1 Malik rol 4-27 mellitus capsule by [facility]alt [facility] (VITAMIN 00:00: due to mouth D2) 50,000 00 underlying weekly. unit condition capsule with diabetic nephropathy gabapentin 2021- No Hip pain 300mg Q.5D Take 1 Malik (NEURONTIN) 3-23 12- capsule by H ealth 300 mg 00:00: 00:00 mouth 2 capsule 00 :00 times daily. gabapentin 2021- No Hip pain 300mg Q.5D Take 1 [facility] (NEURONTIN) 3-23 12- capsule by H ealth 300 mg 00:00: 00:00 mouth 2 capsule 00 :00 times daily. gabapentin 2021- No Hip pain 300mg Q.5D Take 1 [facility] (NEURONTIN) 3-23 12- capsule by H ealth 300 mg 00:00: [...] 5 ml Malik diphenhydrA 04-23 by mouth [facility] 00:00: 00:00 twice syrup-1 mL 00 :00 daily.comp lidocaine ound at mucosal :[facility] mL nystatin oral suspension oral [...] 5 ml Malik diphenhydrA 04-23 by mouth [facility] 00:00: 00:00 twice syrup-1 mL 00 :00 daily.comp lidocaine ound at mucosal :[facility] mL nystatin oral suspension oral [...] 5 ml [facility]ik diphenhydrA 04-23 by mouth [facility] (Dynasec) 00:00: 00:00 twice syrup-1 mL 00 :00 daily.comp lidocaine ound at mucosal :[facility] mL nystatin oral suspension oral [...] 00 :00 daily.comp lidocaine ound at mucosal :[facility] mL nystatin oral suspension oral [...] 00 :00 daily.comp lidocaine ound at mucosal :[facility] mL nystatin oral suspension oral [...] 00 :00 daily.comp lidocaine ound at mucosal :[facility] mL nystatin oral suspension oral suspension- CMPD ibuprofen 2021- No Acute 800mg Take 1 Alber[facility] ris (MOTRIN) 10-25 tonsillitis tablet by Health 800 mg 00:00: 00:00 , mouth tablet 00 :00 unspecified every 8 etiology hours as needed for Pain. ibuprofen 2021- No Acute 800mg Take 1 [facility] (MOTRIN) 10-25 08-26 tonsillitis tablet by Health 800 mg 00:00: 00:00 , mouth tablet 00 :00 unspecified every 8 etiology hours as needed for Pain. ibuprofen 2021- No Acute 800mg Take 1 [facility] (MOTRIN) 2 08-26 tonsillitis tablet by Health 800 mg 00:00: 00:00 , mouth tablet 00 :00 unspecified every 8 etiology hours as needed for Pain. ibuprofen 2021- No Acute 800mg Take 1 [facility] (MOTRIN) 2 08-26 tonsillitis tablet by Health 800 mg 00:00: 00:00 , mouth tablet 00 :00 unspecified every 8 etiology hours as needed for Pain. ibuprofen 2021- No Acute 800mg Take 1 [facility] (MOTRIN) 10-25 08-26 tonsillitis tablet by Health 800 mg 00:00: 00:00 , mouth tablet 00 :00 unspecified every 8 etiology hours as needed for Pain. ibuprofen 2021- No Acute 800mg Take 1 [facility] (MOTRIN) 10-25 08-26 tonsillitis tablet by Health 800 mg [...] Dissolve 1 Malik IN 09-16 heart tablet [facility] (NITROSTAT) 00:00: 00:00 disease under the 0.4 mg 00 :00 tongue sublingual every 5 tablet minutes as needed, up to 3 times. If chest pain persists, call 911. albuterol 2014-08- No Reactive 2{puff} Inhale 2 [facility] (VENTOLIN 09-16 airway Puffs by [facility] HFA,PROVENT 00:00: 00:00 disease, mouth 4 [place] 00 :00 mild times HFA,PROAIR intermitten daily as HFA) 90 t, needed for mcg/actuati uncomplicat Wheezing. on inhaler ed nitroGLYCER 2014-08- No Ischemic Dissolve 1 Malik IN 09-16 heart [facility] (NITROSTAT) 00:00: 00:00 disease under the 0.4 mg 00 :00 tongue sublingual every 5 tablet minutes as needed, up to 3 times. If chest pain persists, call 911. albuterol 2014-08- No Reactive 2{puff} Inhale 2 Malik (VENTOLIN 09-16 airway Puffs by [facility] HFA,PROVENT 00:00: 00:00 disease, mouth 4 [place] 00 :00 mild times HFA,PROAIR intermitten daily as HFA) 90 t, needed for mcg/actuati uncomplicat Wheezing. on inhaler ed nitroGLYCER 2014-08- No Ischemic Dissolve 1 Malik IN 09-[address] [facility] (NITROSTAT) 00:00: 00:00 disease under the 0.4 mg 00 :00 tongue sublingual every 5 tablet minutes as needed, up to 3 times. If chest pain persists, call 911. albuterol 2014-08- No Reactive 2{puff} Inhale 2 Malik (VENTOLIN 09-16 airway Puffs by [facility] HFA,PROVENT 00:00: 00:00 disease, mouth 4 [place] 00 :00 mild times HFA,PROAIR intermitten daily as HFA) 90 t, needed for mcg/actuati uncomplicat Wheezing. on inhaler ed nitroGLYCER 2014-08- No Ischemic Dissolve 1 Malik IN 09-16 heart [facility] (NITROSTAT) 00:00: 00:00 disease under the 0.4 mg 00 :00 tongue sublingual every 5 tablet minutes as needed, up to 3 times. If chest pain persists, call 911. albuterol 2014-08- No Reactive 2{puff} Inhale 2 Malik (VENTOLIN 09-16 airway Puffs by [facility] HFA,PROVENT 00:00: 00:00 disease, mouth 4 [place] 00 :00 mild times HFA,PROAIR intermitten daily as HFA) 90 t, needed for mcg/actuati uncomplicat Wheezing. on inhaler ed nitroGLYCER 2014-08- No Ischemic Dissolve 1 [place] 09-[address] [facility] (NITROSTAT) 00:00: 00:00 disease under the 0.4 mg 00 :00 tongue sublingual every 5 tablet minutes as needed, up to 3 times. If chest pain persists, call 911. albuterol 2014-08- No Reactive 2{puff} Inhale 2 [facility] (VENTOLIN 09-16 airway Puffs by [facility] HFA,PROVENT 00:00: 00:00 disease, mouth 4 [place] 00 :00 mild times HFA,PROAIR intermitten daily as HFA) 90 t, needed for mcg/actuati uncomplicat Wheezing. on inhaler ed nitroGLYCER 2014-08- No Ischemic Dissolve 1 [place] 09-[address] [facility] (NITROSTAT) 00:00: 00:00 disease under the 0.4 mg 00 :00 tongue sublingual every 5 tablet minutes as needed, up to 3 times. If chest pain persists, call 911. albuterol 2014-08- No Reactive 2{puff} Inhale 2 [facility] (VENTOLIN 09-16 airway Puffs by [facility] HFA,PROVENT 00:00: 00:00 disease, mouth 4 [place] 00 :00 mild times HFA,PROAIR intermitten daily as HFA) 90 t, needed for mcg/actuati uncomplicat Wheezing. on inhaler ed aspirin 2014-08- No Essential 81mg QD [facility] and [facility] (ASPIRIN) 09-16 hypertensio swallow 1 Health 81 mg 00:00: 00:00 n, benign tablet by chewable 00 :00 mouth tablet daily. aspirin 2014-08- No Essential 81mg QD Odette [...] 10mg QD Take 1 Alberto ris (CLARITIN) 0-08 05- allergic tablet by Health 10 mg 00:00: 00:00 rhinitis mouth tablet 00 :00 daily Take 1 tablet by mouth once a day.. loratadine 2014-08- No Other 10mg QD Take 1 [facility] ris (CLARITIN) 0-08 05- allergic tablet by Health 10 mg 00:00: 00:00 rhinitis mouth tablet 00 :00 daily Take 1 tablet by mouth once a day.. loratadine 2014-08- No Other 10mg QD Take 1 [facility] ris (CLARITIN) 0-08 05- allergic tablet by Health 10 mg 00:00: 00:00 rhinitis mouth tablet 00 :00 daily Take 1 tablet by mouth once a day.. loratadine 2014-08- No Other 10mg QD Take 1 [facility] ris (CLARITIN) 0-08 05- allergic tablet by Health 10 mg 00:00: 00:00 rhinitis mouth tablet 00 :00 daily Take 1 tablet by mouth once a day.. loratadine 2014-08- No Other 10mg QD Take 1 [facility] ris (CLARITIN) 0-08 05- allergic tablet by Health 10 mg 00:00: 00:00 rhinitis mouth tablet 00 :00 daily Take 1 tablet by mouth once a day.. loratadine 2014-08- No Other 10mg QD Take 1 [facility] ris (CLARITIN) 012 08 allergic tablet by Health 10 mg 00:00: 00:00 rhinitis mouth tablet 00 :00 daily Take 1 tablet by mouth once a day.. oneidaamcinvalentín Yes Type II or Q.5D Apply to [facility] 05-27 unspecified affected Heal ([facility]) 00:00: type area 2 0.025 % 00 diabetes times topical mellitus daily. cream without mention of complicatio n, not stated as uncontrolle d triamcinolo Yes Type II or Q.5D Apply to [facility] 05-27 unspecified affected Heal ([facility]) 00:00: type area 2 0.025 % 00 diabetes times topical mellitus daily. cream without mention of complicatio n, not stated as uncontrolle d triamcinolo Yes Type II or Q.5D Apply to [facility] 05-27 unspecified affected Heal ([facility]) 00:00: type area 2 0.025 % 00 diabetes times topical mellitus daily. cream without mention of complicatio n, not stated as uncontrolle d triamcinolo Yes Type II or Q.5D Apply to [facility] 05-27 unspecified affected Heal ([facility]) 00:00: type area 2 0.025 % 00 diabetes times topical mellitus daily. cream without mention of complicatio n, not stated as uncontrolle d triamcinolo Yes Type II or Q.5D Apply to [facility] 05-27 unspecified affected Heal ([facility]) 00:00: type area 2 0.025 % 00 diabetes times topical mellitus daily. cream without mention of complicatio n, not stated as uncontrolle d triamcinolo Yes Type II or Q.5D Apply to [facility] 05-27 unspecified affected Heal ([facility]) 00:00: type area 2 0.025 % 00 diabetes times topical mellitus daily. cream without mention of complicatio n, not stated as uncontrolle d insulin Type II or Inject 80 [facility] glargine 05-27 04- unspecified units He alth ([facility]) 00:00: 00:00 type under the 100 unit/mL 00 :00 diabetes skin every injection mellitus evening. without mention of complicatio n, not stated as uncontrolle d insulin 2021- No Type II or Inject 80 Malik glargine 05-27- unspecified units He alth ([facility]) 00:00: 00:00 [...] Q.5D Apply to Malik one 2.5 % 7-08 dermatitis affected Health ointment 00:00: area 2 00 times daily. hydrocortis Yes Contact Q.5D Apply to Malik one 2.5 % 7-08 dermatitis affected Health ointment 00:00: area 2 00 times daily. hydrocortis Yes Contact Q.5D Apply to Malik one 2.5 % 7-08 dermatitis affected Health ointment 00:00: area 2 00 times daily. hydrocortis Yes Contact Q.5D Apply to Malik one 2.5 % 7-08 dermatitis affected Health ointment 00:00: area 2 00 times daily. hydrocortis 2014- Yes Contact Q.5D Apply to [facility] [...] 1 Malik SR 02-20 not tablet by [facility] (MUCINEX) 00:00: 00:00 specified mouth 2 600 [...] Date Status Commen ts Source Name Name Virtual Event Bags Age 12yrs+ 2022-06-08 Completed [facility] Bivalent Booster 00:00:00 COVID Vaccine Pfizer Age 12yrs+ 2022-06-08 Completed [facility] Bivalent Booster 00:00:00 COVID Vaccine Pfizer Age 12yrs+ 2022-06-08 Completed [facility] Bivalent Booster 00:00:00 COVID Vaccine Pfizer Sars-cov-2 2021-05-25 Completed [facility] Vaccination 00:00:00 Pfizer Sars-cov-2 2021-05-25 Completed [facility] Vaccination 00:00:00 Pfizer Sars-cov-2 2021-05-25 Completed [facility] Vaccination 00:00:00 Pfizer Sars-cov-2 2021-05-25 Completed [facility] Vacc[facility] 00:00:00 Pfizer Sars-cov-2 2021-05-25 Completed [facility] Vacc[facility] 00:00:00 Pfizer Sars-cov-2 2020-09-21 Completed [facility] Vacc[facility] 00:00:00 Pfizer Sars-cov-2 2020-09-21 Completed [facility] Vacc[facility] 00:00:00 Pfizer Sars-cov-2 2020-09-21 Completed [facility] Vaccination 00:00:00 Pfizer Sars-cov-2 2020-09-21 Completed [facility] Vaccination 00:00:00 Pfizer Sars-cov-2 2020-09-21 Completed [facility] Vaccination 00:00:00 Pfizer Sars-cov-2 2020-08-31 Completed [facility] Vaccination 00:00:00 Pfizer Sars-cov-2 2020-08-31 Completed [facility] Vaccination 00:00:00 Pfizer Sars-cov-2 2020-08-31 Completed [facility] Vaccination 00:00:00 Pfizer Sars-cov-2 2020-08-31 Completed [facility] Vaccination 00:00:00 Pfizer Sars-cov-2 2020-08-31 Completed [facility] Vaccination 00:00:00 flu vax 2017-07-30 Completed [...] Health 00:00:00 PPV 23 Pneumococcal 2012-08-31 Completed [facility] 00:00:00 PPV 23 Pneumococcal 2012-08-31 Completed [facility] 00:00:00 PPV 23 Pneumococcal 2012-08-31 Completed [facility] Polysaccaride 00:00:00 PPV 23 Pneumococcal 2012-08-31 Completed [facility] Polysaccaride 00:00:00 PPV 23 Pneumococcal 2012-08-31 Completed [facility] 00:00:00 PPV 23 Pneumococcal 2012-08-31 Completed [facility] 00:00:00 Influenza Vaccine 2012-08-01 Completed [facility] 00:00:00 Tdap Tetanus, 2012-08-01 Completed [facility] diphtheria, 00:00:00 acellular pertussis Vaccine Influenza Vaccine 2012-08-01 Completed [facility] 00:00:00 Tdap Tetanus, 2012-08-01 Completed formerly [facility] diphtheria, 00:00:00 acellular pertussis Vaccine Influenza Vaccine 2012-08-01 Completed [facility] 00:00:00 Tdap Tetanus, 2012-08-01 Completed formerly [facility] diphtheria, 00:00:00 acellular pertussis Vaccine Influenza Vaccine 2012-08-01 Completed [facility] 00:00:00 Tdap Tetanus, 2012-08-01 Completed formerly [facility] diphtheria, 00:00:00 acellular pertussis Vaccine Influenza Vaccine 2012-08-01 Completed [facility] 00:00:00 Tdap Tetanus, 2012-08-01 Completed formerly [facility] diphtheria, 00:00:00 acellular pertussis Vaccine Influenza Vaccine 2012-08-01 Completed [facility] 00:00:00 Tdap Tetanus, 2012-08-01 Completed formerly [facility] diphtheria, 00:00:00 acellular pertussis Vaccine Vital Signs Vital Name Observation Time Observation Value Comments Source Systolic blood 2022-06-22 15:26:00 106 [facility]Hg[facility] Diastolic blood 2022-06-22 15:26:00 65 mm[Hg] [facility] Heart rate 2022-06-22 15:25:00 78 /min [facility] Body temperature 2022-06-22 15:25:00 36.56 Melody [facility] Body height 2022-06-22 15:25:00 162.6 cm [facility] Body weight 2022-06-22 15:25:00 78.019 kg [facility] BMI 2022-06-22 15:25:00 29.52 kg/m2 [facility] Oxygen saturation 2022-06-22 15:25:00 100 /min on 3 liters [facility] versity [facility] in Arterial blood [facility] P[facility] Heart rate 2022-06-20 17:00:00 89 /min [facility] Oxygen saturation 2022-06-20 17:00:00 100 /min [facility] in Arterial blood [facility] Systolic blood 2022-06-20 14:00:00 100 mm[Hg] Univer sity of pressure [facility] Diastolic blood 2022-06-20 14:00:00 67 mm[Hg] Unive rsity of pressure [facility] Respiratory rate 2022-06-20 14:00:00 18 /min [facility] Body temperature 2022-06-20 09:00:00 36.28 Melody [facility] Body height 2022-06-19 14:43:00 162.6 cm [facility] Body weight 2022-06-19 14:43:00 76.658 kg [facility] BMI 2022-06-19 14:43:00 29.01 kg/m2 [facility] Body height 2022-06-19 14:39:00 162.6 cm [facility] Systolic blood 2022-06-19 14:30:00 108 mm[Hg] Univer sity of pressure [facility] Diastolic blood 2022-06-19 14:30:00 59 mm[Hg] Unive rsity of pressure [facility] Respiratory rate 2022-06-19 14:30:00 18 /min [facility] Oxygen saturation 2022-06-19 14:30:00 100 /min Uni versity [facility] in Arterial blood [facility] Heart rate 2022-06-19 13:08:00 77 /min [facility] Body temperature 2022-06-19 13:08:00 36.39 Melody [facility] Body weight 2022-06-19 11:08:00 76.658 kg [facility] BMI 2022-06-19 11:08:00 29.01 kg/m2 [facility] Systolic blood 2022-06-19 08:43:00 137 mm[Hg] Univer sity of pressure [facility] Diastolic blood 2022-06-19 08:43:00 81 mm[Hg] Unive rsity of pressure [facility] Heart rate 2022-06-19 08:43:00 92 /min Univers ty [facility] Body temperature 2022-06-19 08:43:00 35.89 Melody [facility] ersity of [facility] Respiratory rate 2022-06-19 08:43:00 15 /min [facility] ersity of [facility] Body height 2022-06-19 08:43:00 162.6 cm [facility] ty [facility] Body weight 2022-06-19 08:43:00 76.658 kg [facility] BMI 2022-06-19 08:43:00 29.01 kg/m2 [facility] Oxygen saturation 2022-06-19 08:43:00 99 /min Uni versity of in Arterial blood [facility] by Pulse oximetry Branch Systolic blood 2022-01-06 16:40:00 128 mm[Hg] [facility] Diastolic blood 2022-01-06 16:40:00 63 mm[Hg] [facility] Heart rate 2022-01-06 16:40:00 70 /min [facility] Body temperature 2022-01-06 16:40:00 36.28 Melody [facility] Body height 2022-01-06 16:40:00 162.6 cm [facility] Body weight 2022-01-06 16:40:00 75.978 [facility] BMI 2022-01-06 16:40:00 28.75 kg/m2 [facility] Systolic blood 2022-06-11 10:50:00 133 mm[Hg] [facility] pressure Diastolic blood 2022-06-11 10:50:00 49 mm[Hg] [facility] pressure Heart rate 2022-06-11 10:50:00 81 /min [facility] ealt Body temperature 2022-06-11 10:50:00 37.56 Melody Joe [...] height 2022-05-31 08:33:00 162.6 cm [facility] H ealt Body weight 2022-05-31 08:33:00 80.604 kg Malik [...] Health Body height 2022-04-23 12:30:00 162.6 cm [facility] Body weight 2022-04-23 12:30:00 74.027 kg Malik Fabricio [facility] BMI 2022-04-23 12:30:00 28.01 kg/m2 Malik Fabricio [facility] Oxygen saturation 2022-02-03 15:32:00 98 /min [facility] in Arterial blood by Pulse oximetry temperature site 2020-07-02 15:12:44 oral [facility] Health respiratory rate 2020-07-02 15:12:44 16 /min [facility] E& Health pulse rate 2020-07-02 15:12:44 60 [facility], 2020-07-02 15:12:44 61 mm[Hg] [facility] diastolic Health blood pressure, 2020-07-02 15:12:44 119 mm[Hg] [facility] systolic Health weight E&M 2020-07-02 15:12:44 169 [lb_av] [facility] Health weight in kilograms 2020-07-02 15:12:44 76.82 kg [facility] E& Health height in 2020-07-02 15:12:44 162.56 cm [facility] centimeters E& Health oxygen saturation, 2020-07-02 15:12:44 98 % [facility] 2020-07-02 15:12:44 98.0 [degF] [facility], 2018-08-14 10:54:52 94 % [facility] blood pressure, 2018-08-14 10:54:52 72 mm[Hg] [facility] diastolic Health blood pressure, 2018-08-14 10:54:52 147 mm[Hg] [facility] systolic Health pulse rate 2018-08-14 10:54:52 81 /min [facility] Health temperature E&M 2018-08-14 10:54:52 98.4 [degF] [facility] Health weight E&M 2018-08-14 10:54:52 171.25 [lb_av] [facility] Health weight in kilograms 2018-08-14 10:54:52 77.84 kg [facility] E& Health temperature site 2018-08-14 10:54:52 oral [facility] Health height in 2018-08-14 10:54:52 162.56 cm [facility] E&M Health weight E&M 2018-07-04 14:01:38 184 [lb_av] [facility] weight in kilograms 2018-07-04 14:01:38 83.64 kg [facility] E& Health blood pressure, 2018-07-04 14:01:38 83 mm[Hg] [facility] diastolic Health blood pressure, 2018-07-04 14:01:38 133 mm[Hg] [facility] systolic Health oxygen saturation, 2018-07-04 14:01:38 95 % [facility] oximetry Health pulse rate 2018-07-04 14:01:38 90 /min [facility] Health temperature E&M 2018-07-04 14:01:38 98.2 [degF] [facility] temperature site 2018-07-04 14:01:38 oral [facility] Health height in 2018-07-04 14:01:38 162.56 cm [facility] centimeters E& Health blood pressure, 2017-10-28 08:14:02 72 mm[Hg] [facility] diastolic Health blood pressure, 2017-10-28 08:14:02 123 mm[Hg] [facility] systolic Health oxygen saturation, 2017-10-28 08:14:02 97 % [facility] oximetry Health pulse rate 2017-10-28 08:14:02 85 /min [facility] temperature E&M 2017-10-28 08:14:02 96.9 [degF] [facility] Health weight E&M 2017-10-28 08:14:02 185.13 [lb_av] [facility] in kilograms 2017-10-28 08:14:02 84.15 kg [facility] temperature site 2017-10-28 08:14:02 tympanic [facility] Health height in 2017-10-28 08:14:02 162.56 cm [facility] centimeters E&M Health pulse rate 2017-07-30 12:28:45 80 /min [facility] blood pressure, 2017-07-30 12:28:45 72 mm[Hg] [facility] diastolic Health blood pressure, 2017-07-30 12:28:45 146 mm[Hg] [facility] systolic Health respiratory rate 2017-07-30 12:28:45 16 /min [facility] E& Health oxygen saturation, 2017-07-30 12:28:45 98 % [facility] temperature E&M 2017-07-30 12:28:45 98.0 [degF] [facility] weight E&M 2017-07-30 12:28:45 184 [facility] 2017-07-30 12:28:45 83.64 kg [facility] E& Health temperature site 2017-07-30 12:28:45 tympanic [facility] Health height in 2017-07-30 12:28:[address] [facility] E&M Health pulse rate 2016-12-16 13:55:25 82 [facility], 2016-12-16 13:55:25 77 mm[Hg] [facility] diastolic Health blood pressure, 2016-12-16 13:55:25 155 mm[Hg] [facility] systolic Health oxygen saturation, 2016-12-16 13:55:25 96 % [facility] Health temperature E&M 2016-12-16 13:55:25 99.6 [degF] [facility] Health weight E&M 2016-12-16 13:55:25 185.60 [lb_av] [facility] 2016-12-16 13:55:25 84.36 kg [facility] E& Health temperature site 2016-12-16 13:55:25 tympanic [facility] height in 2016-12-16 13:55:25 162.56 [facility] centimeters E&M Health pulse rate 2016-08-14 09:50:08 76 /[facility] blood pressure, 2016-08-14 09:50:08 67 mm[Hg] [facility] diastolic Health blood pressure, 2016-08-14 09:50:08 111 mm[Hg] [facility] systolic Health temperature site 2016-08-14 09:50:08 tympanic [facility] Health temperature E&M 2016-08-14 09:50:08 96.9 [degF] [facility] oxygen saturation, 2016-08-14 09:50:08 97 % [facility] oximetry Health weight E&M 2016-08-14 09:50:08 179.25 [lb_av] [facility] weight in kilograms 2016-08-14 09:50:08 81.48 kg [facility] E& Health height in 2016-08-14 09:50:[address] [facility] centimeters E&M Health weight E&M 2016-06-16 08:28:26 178.50 [lb_av] [facility] weight in kilograms 2016-06-16 08:28:26 81.14 kg [facility] oxygen saturation, 2016-06-16 08:28:26 98 % [facility] oximetry Health pulse rate 2016-06-16 08:28:26 73 /min [facility] blood pressure, 2016-06-16 08:28:26 69 mm[Hg] [facility] [facility] diastolic Health blood pressure, 2016-06-16 08:28:26 113 mm[Hg] Leg[facility] systolic Health temperature E&M 2016-06-16 08:28:26 96.9 [degF] [facility] 2016-06-16 08:28:26 162.56 cm [facility] C ommunity centimeters E&M Health temperature site 2016-06-16 08:28:26 tympanic Lega cy [facility] Procedures Procedure Date / Time Performing Clinician Source Performed ASSIGNMENT OF BENEFITS 2022-06-22 15:09:29 [facility] [place] [facility] TRANSTHORACIC ECHO (TTE) 2022-06-20 15:30:00 Taylor [facility] TRANSTHORACIC ECHO (TTE) 2022-06-20 15:30:00 Taylor [facility] MAGNESIUM 2022-06-20 07:48:00 [facility] BASIC METABOLIC PANEL (NA, 2022-06-20 07:48:00 Taylor [facility] K, CL, CO2, GLUCOSE, BUN, Medica l Branch CREATININE, CA) CBC WITH DIFF 2022-06-20 07:48:00 Celena [facility] MAGNESIUM 2022-06-20 07:48:00 Celena [facility] BASIC METABOLIC PANEL (NA, 2022-06-20 07:48:00 Taylor Dallas [facility] K, CL, CO2, GLUCOSE, BUN, Medica l Branch CREATININE, CA) CBC WITH DIFF 2022-06-20 07:48:00 Caro Center [facility] POCT GLUCOSE (AUTOMATED) 2022-06-20 00:53:[address] [facility] POCT GLUCOSE (AUTOMATED) 2022-06-20 00:53:00 Anastasia Becerra [facility] POCT GLUCOSE (AUTOMATED) 2022-06-19 22:05:00 Anastasia Becerra [facility] POCT GLUCOSE (AUTOMATED) 2022-06-19 22:05:[address] [facility] HB ECG ROUTINE & RHYTHM 2022-06-19 19:46:04 [facility] HB ECG ROUTINE & RHYTHM 2022-06-19 19:46:04 [facility] HB ECG ROUTINE & RHYTHM 2022-06-19 17:38:11 [facility] HB ECG ROUTINE & RHYTHM 2022-06-19 17:38:11 [facility] HB ECG ROUTINE & RHYTHM 2022-06-19 17:36:55 [facility] HB ECG ROUTINE & RHYTHM 2022-06-19 17:36:55 [facility] ACTIVATED PARTIAL THRMPLAS 2022-06-19 17:15:00 Armando Garcia [facility] ACTIVATED PARTIAL THRMPLAS 2022-06-19 17:15:00 Armando Garcia [facility] POCT GLUCOSE (AUTOMATED) 2022-06-19 17:14:[address] [facility] POCT GLUCOSE (AUTOMATED) 2022-06-19 17:14:[address] [facility] ACTIVATED PARTIAL THRMPLAS 2022-06-19 15:48:00 Mariluz Melgar [facility] ACTIVATED PARTIAL THRMPLAS 2022-06-19 15:48:00 Mariluz Melgar [facility] HB ECG ROUTINE & RHYTHM 2022-06-19 13:31:18 [facility] HB ECG ROUTINE & RHYTHM 2022-06-19 13:31:18 [facility] CARDIAC CATHETERIZATION 2022-06-19 12:40:37 Anastasia Becerra [facility] CARDIAC CATHETERIZATION 2022-06-19 12:40:37 Isidro Anastasia [facility] CARDIAC CATHETERIZATION 2022-06-19 12:40:37 Isidro Anastasia [facility] CARDIAC CATHETERIZATION 2022-06-19 12:40:37 Isidro [facility] CARDIAC CATHETERIZATION 2022-06-19 12:40:37 Isidro [facility] CARDIAC CATHETERIZATION 2022-06-19 12:40:37 [facility] POCT ACT LOW RANGE 2022-06-19 12:38:00 [facility] POCT ACT LOW RANGE 2022-06-19 12:06:00 [facility] CATH PROCEDURE LOG 2022-06-19 11:57:57 Anastasia Becerra [facility] CATH PROCEDURE LOG 2022-06-19 11:57:57 Isidro Anastasia [facility] POCT ACT LOW RANGE 2022-06-19 11:57:00 [facility] CRITICAL CARE 2022-06-19 10:21:08 Theo Peralta [facility] XR CHEST 1 VW 2022-06-19 10:04:00 Theo Peralta [facility] MAGNESIUM 2022-06-19 08:54:00 [facility] THYROID STIMULATING 2022-06-19 08:54:00 [facility] LIPID PANEL (72872)(TOTAL 2022-06-19 08:54:00 Celena [facility] TRIGLYCERIDES, HDL) GLYCOSYLATED HEMOGLOBIN 2022-06-19 08:54:00 [facility] MAGNESIUM 2022-06-19 08:54:00 [facility] THYROID STIMULATING 2022-06-19 08:54:00 Celena [facility] HORMONE [facility] LIPID PANEL (55411)(TOTAL 2022-06-19 08:54:00 [facility] CHOLESTEROL, [facility] TRIGLYCERIDES, HDL) GLYCOSYLATED HEMOGLOBIN 2022-06-19 08:54:00 Ramón [facility] LIPASE 2022-06-19 08:54:00 Theo Peralta [facility] TROPONIN I 2022-06-19 08:54:00 Theo Peralta [facility] COMP. METABOLIC PANEL 2022-06-19 08:54:00 Theo Peralta [facility] ([id number]) [facility] CBC WITH DIFF 2022-06-19 08:54:00 Theo Peralta [facility] PROTHROMBIN TIME / INR 2022-06-19 08:54:00 [facility] ACTIVATED PARTIAL THRMPLAS 2022-06-19 08:54:00 Theo Peralta [facility] N-TERMINAL PRO-BNP 2022-06-19 08:54:00 Theo Peralta [facility] NOTICE OF PRIVACY 2022-06-19 08:33:10 Doctor Unassigned, [facility] PRACTICES [place] [facility] CONSENT/REFUSAL FOR 2022-06-19 08:32:59 Doctor Unassigned, [facility] DIAGNOSIS AND TREATMENT [place] [facility] CA 125 2022-05-28 12:17:00 Blayne Robbins CBC/DIFF 2022-05-28 12:17:00 [facility] COMPREHENSIVE METABOLIC 2022-05-28 12:17:00 Blayne Robbins Health PANEL MAGNESIUM 2022-05-28 12:17:00 Blayne Robbins ealt CBC 2022-05-28 12:17:00 Blayne Robbins enedina HEMOCCULT KIT FOR SPECIMEN 2022-05-18 14:13:44 Polly Warren [facility] COLLECTION AT HOME OPHTHALMOLOGY RETINAL SCAN 2022-05-18 13:20:[address] [facility] MAMMOGRAM BILAT SCREEN 2022-05-18 11:55:54 Polly Warren [facility] DIGITAL W/BALDOMERO CA 125 2022-05-07 12:42:00 Blayne Robbins CBC/DIFF 2022-05-07 12:42:00 [facility] COMPREHENSIVE METABOLIC 2022-05-07 12:42:[address] [facility] PANEL MAGNESIUM 2022-05-07 12:42:00 Blayne Robbins ealt CBC 2022-05-07 12:42:00 Blayne Robbins [facility] MICROALBUMIN / CREATININE 2022-04-23 12:28:00 Polly Warren [facility] URINE RATIO HEMOGLOBIN A1C 2022-04-23 12:21:00 Polly Warren [facility] COMPREHENSIVE METABOLIC 2022-04-23 12:21:00 [facility] (WITHOUT DIFFERENTIAL) 2022-04-23 12:21:00 Polly Warren [facility] CT ABDOMEN AND PELVIS 2022-04-15 14:21:00 Sweetie Grimes [facility] CONTRAST CT CHEST W CONTRAST 2022-04-15 14:21:00 Yodit Gonzalez Is[facility] HPV HIGH-RISK 2022-04-09 14:21:00 Yodit Gonzalez [facility] ENDOMETRIAL BIOPSY SUCTION 2022-04-09 14:13:31 Blayne Robbins Mark [facility] TYPE TISSUE EXAM 2022-04-09 14:04:00 Yodit Gonzalez [facility] PAP TEST CYTOLOGY 2022-04-09 14:04:00 Yodit Gonzalez [facility] CREATININE 2022-03-18 14:43:00 Sweetie Grimes [facility] CA 125 2022-03-16 10:51:00 Thalia Sutton [facility] CA 19-9 2022-03-16 10:51:00 Thalia Sutton [facility] CEA 2022-03-16 10:51:00 Thalia Sutton [facility] TRANSTHORACIC ECHO (TTE) 2022-02-10 09:55:00 Joie [facility] COMPLETE [id number] LEAD EKG 2022-02-03 15:41:10 Natali Siddiqui [facility] DIABETIC FOOT EXAM 2021-11-27 09:28:06 Joie [facility] ealt GLUCOSE POC 2021-11-27 09:24:00 Joie [facility] GLUCOSE POC 2021-11-27 08:43:00 Joie [facility] POC RAPID HIV 2021-11-27 00:00:00 Joie [facility] POC URINE DIPSTICK, 2021-11-27 00:00:00 Joie [facility] WITHOUT MICRO POC RAPID HIV 2021-11-27 00:00:00 Joie [facility] Plan of Care Planned Activity Planned Date Details Comments Source Future Scheduled Test 2027-04-09 Screening for malignant [facility] 00:00:00 neoplasm of cervix (procedure) [code = 150715777] Future Scheduled Test 2027-04-09 Screening for malignant [facility] 00:00:00 neoplasm of cervix (procedure) [code = 700526304] Future Scheduled Test 2027-04-09 Screening for malignant [facility] 00:00:00 neoplasm of cervix (procedure) [code = 576675028] Future Scheduled Test 2027-04-09 Screening for malignant [facility] 00:00:00 neoplasm of cervix (procedure) [code = 586297259] Future Scheduled Test 2027-04-09 Screening for malignant [facility] 00:00:00 neoplasm of cervix (procedure) [code = 952317200] Future Scheduled Test 2027-04-09 Screening for malignant [facility] 00:00:00 neoplasm of cervix (procedure) [code = 151439626] Future Scheduled Test 2027-04-09 Screening for malignant [facility] 00:00:00 neoplasm of cervix (procedure) [code = 150128904] Future Scheduled Test 2027-04-09 Screening for malignant [facility] 00:00:00 neoplasm of cervix (procedure) [code = 088133614] Future Scheduled Test 2027-04-09 Screening for malignant [facility] 00:00:00 neoplasm of cervix (procedure) [code = 404250801] Future Scheduled Test 2027-04-09 Screening for malignant [facility] 00:00:00 neoplasm of cervix (procedure) [code = 118035816] Future Scheduled Test 2027-04-09 Screening for malignant [facility] 00:00:00 neoplasm of cervix (procedure) [code = 048898992] Future Scheduled Test 2027-04-09 Screening for malignant [facility] 00:00:00 neoplasm of cervix (procedure) [code = 901770293] Future Scheduled Test 2023-05-18 Breast Cancer Scrn [facility] 00:00:00 (Yearly) [code = Breast Cancer Scrn (Yearly)] Future Scheduled Test 2023-05-18 DM Retinal Exam [facility] 00:00:00 (Yearly) [code = DM Retinal Exam (Yearly)] Future Scheduled Test 2023-05-18 Breast Cancer Scrn [facility] 00:00:00 (Yearly) [code = Breast Cancer Scrn (Yearly)] Future Scheduled Test 2023-05-18 DM Retinal Exam [facility] 00:00:00 (Yearly) [code = DM Retinal Exam (Yearly)] Future Scheduled Test 2023-05-18 Breast Cancer Scrn [facility] 00:00:00 (Yearly) [code = Breast Cancer Scrn (Yearly)] Future Scheduled Test 2023-05-18 DM Retinal Exam [facility] 00:00:00 (Yearly) [code = DM Retinal Exam (Yearly)] Future Scheduled Test 2023-05-18 Breast Cancer Scrn [facility] 00:00:00 (Yearly) [code = Breast Cancer Scrn (Yearly)] Future Scheduled Test 2023-05-18 DM Retinal Exam Alberto [facility] 00:00:00 (Yearly) [code = DM Retinal Exam (Yearly)] Future Scheduled Test 2023-05-18 Breast Cancer Scrn [facility] 00:00:00 (Yearly) [code = Breast Cancer Scrn (Yearly)] Future Scheduled Test 2023-05-18 DM Retinal Exam Alberto [facility] 00:00:00 (Yearly) [code = DM Retinal Exam (Yearly)] Future Scheduled Test 2023-04-23 Hemoglobin A1c [facility] 00:00:00 measurement (procedure) [code = 00654508] Future Scheduled Test 2023-04-23 Hemoglobin A1c [facility] 00:00:00 measurement (procedure) [code = 96401675] Future Scheduled Test 2023-04-23 Urine screening for [facility] 00:00:00 protein (procedure) [code = 901558944] Future Scheduled Test 2023-04-23 Hemoglobin A1c [facility] 00:00:00 measurement (procedure) [code = 77833075] Future Scheduled Test 2023-04-23 Hemoglobin A1c [facility] 00:00:00 measurement (procedure) [code = 67664980] Future Scheduled Test 2023-04-23 Hemoglobin A1c [facility] 00:00:00 measurement (procedure) [code = 13585988] Future Scheduled Test 2023-04-23 Hemoglobin A1c [facility] 00:00:00 measurement (procedure) [code = 45683553] Future Scheduled Test 2022-11-27 DM Foot Exam [...] Scheduled Test 2021-06-23 DM Retinal Exam Alberto [facility] 00:00:00 (Yearly) [code = DM Retinal Exam (Yearly)] Future Scheduled Test 2019 Screening for malignant [facility] 00:00:00 neoplasm of colon (procedure) [code = 484337337] Future Scheduled Test 2019 Screening for malignant [facility] 00:00:00 neoplasm of colon (procedure) [code = 917247285] Future Scheduled Test 2019 Screening for malignant [facility] 00:00:00 neoplasm of colon (procedure) [code = 984348779] Future Scheduled Test 2019 Screening for malignant [facility] 00:00:00 neoplasm of colon (procedure) [code = 378822136] Future Scheduled Test 2019 Screening for malignant [facility] 00:00:00 neoplasm of colon (procedure) [code = 469426633] Future Scheduled Test 2019 Screening for malignant [facility] 00:00:00 neoplasm of colon (procedure) [code = 369497682] Future Scheduled Test 2016-12-03 CORONARY ARTERY DISEASE [facility] 00:00:00 AGE 18 AND UP [code = CORONARY ARTERY DISEASE AGE 18 AND UP] Future Scheduled Test 2016-12-03 CORONARY ARTERY DISEASE [facility] 00:00:00 AGE 18 AND UP [code = CORONARY ARTERY DISEASE AGE 18 AND UP] Future Scheduled Test 2016-12-03 CORONARY ARTERY DISEASE [facility] 00:00:00 AGE 18 AND UP [code = CORONARY ARTERY DISEASE AGE 18 AND UP] Future Scheduled Test 2016-12-03 CORONARY ARTERY DISEASE [facility] 00:00:00 AGE 18 AND UP [code = CORONARY ARTERY DISEASE AGE 18 AND UP] Future Scheduled Test 2016-12-03 CORONARY ARTERY DISEASE [facility] 00:00:00 AGE 18 AND UP [code = CORONARY ARTERY DISEASE AGE 18 AND UP] Future Scheduled Test 2016-12-03 CORONARY ARTERY DISEASE [facility] 00:00:00 AGE 18 AND UP [code = CORONARY ARTERY DISEASE AGE 18 AND UP] Future Scheduled Test 2015-05-08 Breast Cancer Scrn [facility] 00:00:00 (Yearly) [code = Breast Cancer Scrn (Yearly)] Future Scheduled Test 2013-08-31 Imm Pneumococcal 0-64 [facility] 00:00:00 (2 - PCV) [code = Imm Pneumococcal 0-64 (2 - PCV)] Future Scheduled Test 2013-08-31 Imm Pneumococcal 0-64 [facility] 00:00:00 (2 - PCV) [code = Imm Pneumococcal 0-64 (2 - PCV)] Future Scheduled Test 2013-08-31 Imm Pneumococcal 0-64 [facility] 00:00:00 (2 - PCV) [code = Imm Pneumococcal 0-64 (2 - PCV)] Future Scheduled Test 2013-08-31 Imm Pneumococcal 0-64 [facility] 00:00:00 (2 - PCV) [code = Imm Pneumococcal 0-64 (2 - PCV)] Future Scheduled Test 2013-08-31 Imm Pneumococcal 0-64 [facility] 00:00:00 (2 - PCV) [code = Imm Pneumococcal 0-64 (2 - PCV)] Future Scheduled Test 2013-08-31 Imm Pneumococcal 0-64 [facility] 00:00:00 (2 - PCV) [code = Imm Pneumococcal 0-64 (2 - PCV)] Future Scheduled Test 1970-04-04 COVID-19 Vaccine (#1) [facility] 00:00:00 [code = COVID-19 Vaccine (#1)] Future Scheduled Test 1969 Fluoride Varnish [code [facility] 00:00:00 = Fluoride Varnish] Future Scheduled Test 1969 Fluoride Varnish [code [facility] 00:00:00 = Fluoride Varnish] Future Scheduled Test 1969 Fluoride Varnish [code [facility] 00:00:00 = Fluoride Varnish] Future Scheduled Test 1969 Fluoride Varnish [code [facility] 00:00:00 = Fluoride Varnish] Future Scheduled Test 1969 Fluoride Varnish [code [facility] 00:00:00 = Fluoride Varnish] Encounters Start End Encounter Admission Attending Care Care Encounter Source Date/Time Date/Time Type Type Clinicians Facility Department ID 2022-07-20 2022-07-20 Outpatient Jhony FLOWER [facility] [id number] Univers 10:40:00 10:40:00 [facility] 2022-07-12 2022-07-12 Outpatient [facility] [id number] [place] 00:00:00 00:00:00 Health 2022-07-08 2022-07-08 [facility] [id number] [place] 00:00[facility] 2022-07-06 Outpatient [facility] [id number] [place] 00:00:00 00:00:00 Health 2022-06-29 2022-06-29 Outpatient [facility] [id number] [place] 00:00:00 00:00:00 [facility] 2022-06-28 2022-06-28 [facility] [id number] [place] 00:00[facility]00 [facility]-25 2022-06-25 [facility] [id number] [place] 00:00:00 00:00:00 Only Thomas Parrish [facility] 2022-06-22 2022-06-22 Outpatient Jhony FLOWER [facility] [id number] Univers 10:00:00 11:09:11 [facility] 2022-06-22 2022-06-22 Office [facility] [id number] [place] [address] 10:00:00 11:09:11 Visit [facility] [id number] [facility] [id number] Christopher as ADELITA?BLEA [id number] [address] MEDICAL OFFICE BUILDING 2022-06-22 2022-06-22 Hospital Thalia Sutton [facility] [id number] [place] 10:00:00 10:00:00 Encounter Aditya Salter ealt 2022-06-22 2022-06-22 Outpatient [facility] [id number] [place] 00:00:00 [facility]00[facility]22-[facility]-22 2022-06-22 Orders Doctor JENNI [id number] Univers 00:00:00 00:00:00 Only Unassigned, SEGUN [id number] ity of [facility] [id number] Christopher as [phone] [facility] [address] Branch 2022-06-22 2022-06-22 Patient Jv [facility] [id number] Univers 00:00:00 00:00:00 Outreach Marie [facility] [id number] i ty of [place] 4.2.7.2.686 Christopher as ADELITA?BLEA [phone] [address] MEDICAL OFFICE BUILDING 2022-06-21 2022-06-21 Outpatient [facility] [id number] [place] 00:00:00 00:00:00 [facility] 2022-06-19 2022-06-20 [facility] [id number] Univers 06:09:00 12:20:00 Encounter Anastasia Becerra [facility] SEGUN 350.1.1 3.10 ity of [facility] [id number] [place] [id number] [facility] [address] 2022-06-19 2022-06-19 Surgery NEDRA Becerra [id number] Univers 06:40:00 09:40:00 Anastasia CAST [id number] it y of [facility] [id number] Christopher as [id number] [facility] [address] 2022-06-19 2022-06-19 Emergency X FABIAN [facility] ERT [id number] Univers 03:45:00 05:58:00 THEO daley [facility] 2022-06-19 2022-06-19 Emergency X FABIAN [facility] ERT [id number] Univers 03:45:00 05:58:00 THEO daley [facility] 2022-06-19 2022-06-19 Emergency Theo Peralta [facility] 1.2.840. [id number] Univers 03:45:00 05:58:00 Jim Ford BLAISE 3 [id number] Michelle [id number] [facility] [id number] 2022-06-18 2022-06-18 Office [facility] [id number] [place] 12:00:00 12:30:00 Visit [facility] 2022-06-18 2022-06-18 [facility] [id number] [place] 00:00:00 00:00:00 [facility] 2022-06-18 2022-06-18 Outpatient [facility] [id number] [place] 00:00:00 00:00:00 [facility] 2022-06-16 2022-06-16 Telephonic Yann Flowers [facility] [id number] [place] 09:40:00 10:00:00 Encounter [facility] 2022-06-16 2022-06-16 Telephonic Yann Flowers [facility] [id number] [place] 09:40:00 10:00:00 Encounter [facility] 2022-06-16 2022-06-16 Caroline [facility] [id number] [facility] 00:00:00 00:00:[address] [facility] 2022-06-16 2022-06-16 Caroline Novoa [facility] [id number] [place] 00:00:00 00:00:[address] [facility] 2022-06-11 2022-06-11 Office Mary Blevins [facility] [id number] [place] 10:30:00 12:27:[address] [facility] 2022-06-11 2022-06-11 Office Mary Blevins [facility] [id number] [place] 10:30:00 12:27:[address] [facility] 2022-06-09 2022-06-09 Tino Nathan [facility] [id number] [place] 00:00:00 00:00:00 [facility] 2022-06-09 2022-06-09 Tnio Nathan [facility] [id number] [place] 00:00:00 00:00:00 [facility] 2022-06-08 2022-06-08 ImmunizYann Gibbs [facility] [id number] [place] 10:45:00 12:34:38 on Health 2022-06-08 2022-06-08 ImmunizYann Gibbs [facility] [id number] [place] 10:45:00 12:34:38 on Health 2022-06-08 2022-06-08 Office Nathan, [facility] [id number] [place] 10:00:00 12:13:[address] [facility] 2022-06-08 2022-06-08 Office Nathan, [facility] [id number] [place] 10:00:00 12:13:[address] [facility] 2022-06-07 2022-06-07 Outpatient [facility] [id number] [place] 00:00:00 00:00:00 [facility] 2022-06-05 2022-06-05 Nurse [facility] [id number] [place] 00:00:00 00:00:00 Triage [facility] 2022-06-05 2022-06-05 Nurse [facility] [id number] [place] 00:00:00 00:00:00 Triage [facility] 2022-06-03 2022-06-03 Telephonic [facility] [id number] [place] 13:00:00 14:43:50 Encounter Jamel Mujica [facility] 2022-06-03 2022-06-03 Telephonic Jose [facility] [id number] [place] 13:00:00 14:43:50 [facility] 2022-06-03 2022-06-03 Outpatient GC_SEFP_Riv PRIV PRIV [id number] [facility] 00:00:00 00:00:00 era_A [id number] Medica l 2022-06-03 2022-06-03 Outpatient MILAGRO [facility] [id number] [place] 00:00:00 00:00:00 [facility] 2022-05-31 2022-05-31 Infusion Kiarra Ramos [facility] [id number] [place] 07:30:00 15:17:[address] [facility] 2022-05-31 2022-05-31 Infusion Kiarra Ramos [facility] [id number] [place] 07:30:00 15:17:48 Rosendo Blayne [facility] 2022-05-28 2022-05-28 Office [facility] [id number] [place] 13:00:00 14:23:26 Visit Patricia Parrish [facility] 2022-05-28 2022-05-28 Office [facility] [id number] [place] 13:00:00 14:23:26 Visit Patricia Parrish [facility] 2022-05-28 2022-05-28 Outpatient [facility] [id number] [place] 12:14:14 12:26:45 Health 2022-05-28 2022-05-28 Outpatient [facility] [id number] [place] 00:00:00 00:00:00 [facility] 2022-05-26 2022-05-26 Office [facility] [id number] [place] 13:00:00 13:39:52 [facility] 2022-05-26 2022-05-26 Office [facility] [id number] [place] 13:00:00 13:39:52 Visit [facility] 2022-05-18 2022-05-18 [facility] [id number] [place] 11:07:14 23:59:00 Encounter [facility] 2022-05-18 2022-05-18 [facility] [id number] [place] 11:07:14 23:59:00 Encounter [facility] 2022-05-18 2022-05-18 [facility] [id number] [place] 13:00:00 14:35:01 Visit Polly Mason [facility] 2022-05-18 2022-05-18 Office Briana [facility] [id number] [place] 13:00:00 14:35:01 Visit Polly Mason [facility] 2022-05-18 2022-05-18 [facility] Da [facility] [id number] [place] 13:30:00 13:30:00 Procedure Clarissa K[facility] 2022-05-18 2022-05-18 Ancillary Da [facility] [id number] Malik 13:30:00 13:30:00 Procedure Clarissa dixon 2022-05-18 2022-05-18 Outpatient [facility] [id number] [place] 00:00:00 00:00:00 [facility] 2022-05-18 2022-05-18 [facility] Da [facility] [id number] Mal[place] 00:00:00 00:00:00 Only Clarissa Fuller [facility] 2022-05-18 2022-05-18 Caroline Warren [facility] [id number] [place] 00:00:00 00:00:00 Only Polly Mason [facility] 2022-05-18 2022-05-18 [place] [id number] [place] 00:00:00 00:00:[address] [facility] 2022-05-18 2022-05-18 Caroline Warren [facility] [id number] [place] 00:00:00 00:00:00 Only Polly Mason [facility] 2022-05-18 2022-05-18 Caroline Warren [facility] [id number] [place] 00:00:00 00:00:00 Only Polly Mason [facility] 2022-05-18 2022-05-18 [facility] [id number] [place] 00:00:00 [facility] 2022-05-18 [facility] [id number] [place] 00:00:00 00:00:00 Only Polly Mason [facility] 2022-05-18 2022-05-18 Caroline Roberson [facility] [id number] [place] 00:00:00 00:00:00 Only Clarissa Fuller [facility] 2022-05-13 2022-05-13 Outpatient [facility] [id number] [place] 00:00:00 00:00:00 [facility] 2022-05-10 2022-05-10 Infusion Anitra Murillo [facility] [id number] [place] 08:30:00 17:48:[address] [facility] 2022-05-10 2022-05-10 Infusion Anitra Murillo [facility] [id number] [place] 08:30:00 17:48:[address] [facility] 2022-05-07 2022-05-07 [facility] [id number] [place] 13:30:00 14:37:11 Visit Brayan Mason [facility] 2022-05-07 2022-05-07 Office [facility] [id number] [place] 13:30:00 14:37:11 Visit Brayan Mason [facility] 2022-05-07 2022-05-07 Outpatient [facility] [id number] [place] 12:38:13 12:42:58 Health 2022-05-07 2022-05-07 [facility] [id number] [place] 00:00:00 00:00:00 [facility] 2022-05-06 2022-05-06 [facility] [id number] [place] 00:00:00 00:00:00 [facility] 2022-05-05 2022-05-05 Orders [facility] [id number] [place] 00:00:00 00:00:00 Only Clarissa Fuller [facility] 2022-05-05 2022-05-05 [facility] [id number] [place] 00:00:00 00:00:00 Only Clarissa Fuller [facility] 2022-04-30 2022-04-30 Out[facility] [id number] [place] 00:00:00 00:00:00 LAVERNE Armijo 2022-04-29 2022-04-29 [id number] [place] 14:40:00 14:45:59 Visit Jen Orta Kaitlyn M 2022-04-29 2022-04-29 Office Gibson Aragon [facility] [id number] [place] 14:40:00 14:45:59 Visit Jen Orta Kaitlyn M 2022-04-29 2022-04-29 Outpatient [facility] [id number] [place] 13:41:59 13:43:09 [facility] 2022-04-29 2022-04-29 [facility] [id number] [place] 00:00:00 00:00:00 [facility] 2022-04-29 2022-04-29 Patient [facility] [id number] [place] 00:00:00 00:00:00 Education Jessica [facility] 2022-04-29 2022-04-29 Patient Heri [facility] [id number] [place] 00:00:00 00:00:00 Education Jessica [facility] 2022-04-28 2022-04-28 [facility] [id number] [place] 00:00:00 00:00:00 Review Anna Lopes [facility] 2022-04-28 2022-04-28 Pre-Clinic [facility] [id number] [place] 00:00:00 00:00:00 Review Anna Lopes [facility] 2022-04-26 2022-04-26 Outpatient [facility] [id number] [place] 00:00:00 00:00:00 [facility] 2022-04-23 2022-04-23 Office Mary Blevins [facility] [id number] [place] 12:00:00 13:58:[address] [facility] 2022-04-23 2022-04-23 Office Mary Blevins [facility] [id number] [place] 12:00:00 13:58:[address] [facility] 2022-04-23 2022-04-23 Outpatient [facility] [id number] [place] 12:19:18 12:22:01 [facility] 2022-04-23 2022-04-23 Office Cammy Dial [facility] [id number] [place] 09:20:00 12:17:06 Visit Shay [facility] Briana Polly 2022-04-23 2022-04-23 Office Cammy Dial [facility] [id number] [place] 09:20:00 12:17:06 Visit Shay [facility] Briana Polly 2022-04-23 2022-04-23 [facility] [id number] [place] 00:00:00 00:00:00 [facility] 2022-04-23 2022-04-23 Outpatient [facility] [id number] [place] 00:00:00 00:00:00 [facility] 2022-04-23 2022-04-23 Outpatient [facility] [id number] [place] 00:00:00 00:00:00 [facility] 2022-04-23 2022-04-23 Caroline Warren [facility] [id number] [place] 00:00:00 00:00:00 Only Polly Mason [facility] 2022-04-23 2022-04-23 Nurse Daniel Warren [facility] [id number] [place] 00:00:00 00:00:00 Polly Mason [facility] 2022-04-23 2022-04-23 Caroline Connor [facility] [id number] [place] 00:00:00 00:00:00 Only [facility] 2022-04-23 2022-04-23 Caroline Warren [facility] [id number] [place] 00:00:00 00:00:00 Only Polly Mason [facility] 2022-04-23 2022-04-23 Nurse Daniel Warren [facility] [id number] [place] 00:00:00 00:00:00 Polly Mason [facility] 2022-04-23 2022-04-23 Caroline Connor [facility] [id number] [place] 00:00:00 00:00:00 Only [facility] 2022-04-15 2022-04-15 Ancillary [facility] [id number] [place] 13:20:00 14:24:27 Procedure [facility] 2022-04-15 2022-04-15 Ancillary [facility] [id number] [place] 13:20:00 14:24:27 Procedure [facility] 2022-04-14 2022-04-14 Danielle Islas [facility] [id number] [place] 00:00:00 00:00:00 [facility] 2022-04-14 2022-04-14 Tino Grimes [facility] [id number] [place] 00:00:00 00:00:00 [facility] 2022-04-14 2022-04-14 Danielle Islas [facility] [id number] [place] 00:00:00 00:00:00 [facility] 2022-04-14 2022-04-14 Tino Grimes [facility] [id number] [place] 00:00:00 00:00:00 [facility] 2022-04-13 2022-04-13 Nurse Lewis [facility] [id number] [place] 00:00:00 00:00:00 Triage Elijah Armijo h 2022-04-13 2022-04-13 Caroline Roberson [facility] [id number] [place] 00:00:00 00:00:00 Only Clarissa Fuller [facility] 2022-04-13 2022-04-13 Refill Cornelio, [facility] [id number] [place] 00:00:00 00:00:00 [facility] 2022-04-13 2022-04-13 Refill Salter, [facility] [id number] [place] 00:00:00 00:00:00 [facility] Caren [facility] 2022-04-13 2022-04-13 Refill Dov, [facility] [id number] [place] 00:00:00 00:00:00 [facility] 2022-04-13 2022-04-13 Refill Faustinella [facility] [id number] [place] 00:00:00 00:00:00 , Shade [facility] 2022-04-13 2022-04-13 Refill Daily, [facility] [id number] [place] 00:00:00 00:00:00 Radha [facility] 2022-04-13 2022-04-13 Refill Lesley, [facility] [id number] [place] 00:00:00 00:00:00 Thalia [facility] 2022-04-13 2022-04-13 Nurse Lewis, [facility] [id number] [place] 00:00:00 00:00:00 [facility] 2022-04-13 2022-04-13 Caroline Roberson [facility] [id number] [place] 00:00:00 00:00:00 Only Clarissa Fuller [facility] 2022-04-13 2022-04-13 Refill Cornelio, [facility] [id number] [place] 00:00:00 00:00:00 [facility] 2022-04-13 2022-04-13 Refill Salter, [facility] [id number] [place] 00:00:00 00:00:00 Deysi Fabian [facility] 2022-04-13 2022-04-13 Refill Dov, [facility] [id number] [place] 00:00:00 00:00:00 [facility] 2022-04-13 2022-04-13 Refill Faustinella [facility] [id number] [place] 00:00:00 00:00:00 , Shade [facility] 2022-04-13 2022-04-13 Refill Daily, [facility] [id number] [place] 00:00:00 00:00:[address] [facility] 2022-04-13 2022-04-13 Refill Lesley, [facility] [id number] [place] 00:00:00 00:00:[address] [facility] 2022-04-12 2022-04-12 Refill Cornelio, [facility] [id number] [place] 00:00:00 00:00:00 [facility] 2022-04-12 2022-04-12 Refill Cornelio, [facility] [id number] [place] 00:00:00 00:00:00 [facility] 2022-04-09 2022-04-09 Office ParagonMary [facility] [id number] [place] 11:30:00 14:28:10 Visit Yodit Gonzalez [facility] 2022-04-09 2022-04-09 Office [facility] Mary Booker [facility] [id number] [place] 11:30:00 14:28:10 Visit Yodit Gonzalez [facility] 2022-04-09 2022-04-09 [facility] [id number] [place] 00:00:00 00:00:00 MARY Armijo 2022-04-09 2022-04-09 Caroline [facility] [id number] [place] 00:00:00 00:00:00 Only Yodit Kraft [facility] 2022-04-09 2022-04-09 Caroline [facility] [id number] [place] 00:00:00 00:00:00 Only Yodit Kraft [facility] 2022-03-18 2022-03-18 Outpatient [facility] [id number] [place] 14:40:35 14:44:03 [facility] 2022-03-18 2022-03-18 Office [facility] [id number] [place] 13:30:00 14:28:59 Visit [facility] 2022-03-18 2022-03-18 Office Cornelio, [facility] [id number] [place] 13:30:00 14:28:59 [facility] 2022-03-18 2022-03-18 Outpatient CORNELIO, [facility] [id number] [place] 00:00:00 00:00:00 [facility] 2022-03-17 2022-03-17 Nurse Joshua, [facility] [id number] [place] 00:00:00 00:00:00 Triage Shaka Silt 2022-03-17 2022-03-17 Nurse Lewis, [facility] [id number] [place] 00:00:00 00:00:00 Triage Shaka Healt 2022-03-16 2022-03-16 Outpatient LESLEY, [facility] [id number] [place] 10:43:39 10:51:12 [facility] 2022-03-16 2022-03-16 Outpatient LESLEY, [facility] [id number] [place] 00:00:00 00:00:00 [facility] 2022-03-16 2022-03-16 Outpatient LESLEY, [facility] [id number] [place] 00:00:00 00:00:00 [facility] 2022-03-15 2022-03-15 Refill Salter, [facility] [id number] [place] 00:00:00 00:00:00 [facility] 2022-03-15 2022-03-15 Refill Dov, [facility] [id number] [place] 00:00:00 00:00:00 [facility] 2022-03-15 2022-03-15 Refill Lesley, [facility] [id number] [place] 00:00:00 00:00:00 [facility] 2022-03-15 2022-03-15 Refill Salter, [facility] [id number] [place] 00:00:00 00:00:00 Garcia Caren [facility] 2022-03-15 2022-03-15 Refill Dov, [facility] [id number] [place] 00:00:00 00:00:00 [facility] 2022-03-15 2022-03-15 Refill Lesley, [facility] [id number] [place] 00:00:00 00:00:[address] [facility] 2022-03-08 2022-03-08 Orders Lesley, [facility] [id number] [place] 00:00:00 00:00:[address] [facility] 2022-03-08 2022-03-08 Orders Lesley, [facility] [id number] [place] 00:00:00 00:00:[address] [facility] 2022-03-04 2022-03-04 Office Lesley, [facility] [id number] [place] 10:20:00 11:47:[address] [facility] 2022-03-04 2022-03-04 Office Lesley, [facility] [id number] [place] 10:20:00 11:47:[address] [facility] 2022-02-16 2022-02-16 Nurse Pricilla Chong [facility] [id number] [place] 00:00:00 00:00:00 [facility] 2022-02-16 2022-02-16 Refill Dov, [facility] [id number] [place] 00:00:00 00:00:00 [facility] 2022-02-16 2022-02-16 Refill Faustinella [facility] [id number] [place] 00:00:00 00:00:00 , Shade Parrish [facility] 2022-02-16 2022-02-16 Nurse Pricilla Chong [facility] [id number] [place] 00:00:00 00:00:00 [facility] 2022-02-16 2022-02-16 Refill Dov, [facility] [id number] [place] 00:00:00 00:00:00 [facility] 2022-02-16 2022-02-16 Refill Faustinella [facility] [id number] [place] 00:00:00 00:00:00 , Shade Parrish [facility] 2022-02-10 2022-02-10 [facility] [id number] [place] 09:00:00 23:59:00 Encounter Deysi Kraftla [facility] 2022-02-10 2022-02-10 [facility] [id number] [place] 09:00:00 23:59:00 Encounter Deysi [facility]rish [facility] 2022-02-10 2022-02-10 [facility] [id number] [place] 00:00:00 00:00:00 [facility] 2022-02-03 2022-02-03 Emergency [facility] [id number] [place] 15:31:00 18:28:04 [facility] 2022-02-03 2022-02-03 Emergency [facility] [id number] [place] 15:31:00 18:28:04 [facility] 2022-02-03 2022-02-03 Emergency [facility] [id number] [place] 00:00:00 00:00:00 [facility] 2022-01-21 2022-01-21 Telephone Arin Ramirez [facility] 1.2. [id number] [id number] [place] 00:00:00 00:00:00 Arin Ramirez SE MED [id number] [id number] Health [place] 1 [id number] 2022-01-21 2022-01-21 Telephone Arin Ramirez [facility] 1.2. [id number] [id number] [place] 00:00:00 00:00:00 Arin Ramirez SE MED [id number] 8 Health [place] 1 [id number] 2022-01-19 2022-01-19 Office Radha Aguirre [facility] [id number] [place] 13:40:00 14:24:[address] [facility] 2022-01-19 2022-01-19 Office Radha Aguirre [facility] [id number] [place] 13:40:00 14:24:36 Visit Lesley Thalia Mason [facility] 2022-01-19 2022-01-19 Orders Lesley [facility] [id number] [place] 00:00:00 00:00:[address] [facility] 2022-01-19 2022-01-19 Orders Lesley [facility] [id number] [place] 00:00:00 00:00:[address] [facility] 2022-01-18 2022-01-18 Telephone Nick JEEVAN [id number] [id number] [place] 00:00:00 00:00:00 Teodoro DONOHUE [id number] Health OD [id number] 2022-01-08 2022-01-08 Outpatient [facility] [id number] [place] 00:00:00 00:00:00 [facility] 2022-01-06 2022-01-06 Office JEEVAN Romero [id number] [id number] [place] 11:00:00 12:19:59 Visit Teodoro DONOHUE [id number] Health OD [id number] [id number] 2021-12-15 2021-12-15 Emergency E ALCANTER, MHBL MHBL 7510 MHBL 08:06:00 15:30:00 JUVENTINO 2021-12-10 2021-12-10 Outpatient [facility] [id number] [place] 00:00:00 00:00:00 [facility] 2021-12-09 2021-12-09 Outpatient [facility] [id number] [place]ik 00:00:00 00:00:00 [facility] 2021-12-09 2021-12-09 Outpatient [facility] [id number] [place] 00:00:00 00:00:00 [facility] 2021-12-08 2021-12-08 Outpatient [facility] [id number] Malik 00:00:00 00:00:00 [facility] 2021-12-04 2021-12-04 [facility] [id number] [place] 23:59:00 23:59:00 Encounter [facility] Caren [facility]rish [facility] 2021-12-04 2021-12-04 [facility] [id number] [place] 23:59:00 23:59:00 Encounter [facility] Caren [facility] 2021-12-04 2021-12-04 Outpatient [facility] [id number] [place] 00:00:00 00:00:00 [facility] 2021-12-04 2021-12-04 Outpatient [facility] [id number] [place] 00:00:00 00:00:00 [facility] 2021-12-02 2021-12-02 [facility] [id number] [place] 00:00:00 00:00:00 [facility] 2021-11-30 2021-11-30 Refill Salter, [facility] [id number] [place] 00:00:00 00:00:00 [facility] 2021-11-30 2021-11-30 [facility] [id number] [place] 00:00:00 00:00:00 [facility] 2021-11-27 2021-11-27 Office [facility] [id number] [place] 08:20:00 09:47:21 Visit [facility] 2021-11-27 2021-11-27 Office [facility] [id number] [place] 08:20:00 09:47:21 Visit [facility] 2021-11-27 2021-11-27 Orders [facility] [id number] [place] 00:00:00 00:00:00 Only [facility] 2021-11-27 2021-11-27 Orders [facility] [id number] [place] 00:00:00 00:00:00 Only [facility] 2021-11-13 2021-11-13 Emergency E SAMIR, BL BL [id number] BL 10:19:00 12:21:00 [facility] 2021-06-23 2021-06-23 Orders Salter, [facility] [id number] [place] [address] 00:00:00 00:00:00 Only 2020-07-02 2020-07-02 Office Kiko Pitt [facility] Encoun ter/ Legacy 00:00:00 00:00:00 Visit Sammie [id number] Com samantha [id number] Health 2020-07-02 2020-07-02 Office Sammie Juan [facility] Encounter/ Legacy 00:00:00 00:00:00 Visit Alexandra Nagel [id number] Communi [id number] 2020-06-23 2020-06-23 Office ROMULO Mcwilliams [facility] Encounter / Legacy 00:00:00 00:00:00 Visit Juany [id number] Co mmuni [id number] Health 2020-06-23 2020-06-23 Office Juany Mcwilliams Encounter/ Legacy 00:00:00 00:00:00 Visit Kiarra Silva [id number] Communi [id number] Health 2020-04-25 2020-04-25 Emergency E LANDON, [facility] [id number] [facility] 14:34:00 16:16:00 ANDREA 2019-09-26 2019-09-26 Emergency E ADAM, [facility] [address] [facility] 16:11:00 21:45:00 MALIK 2019-05-24 2019-05-24 Inpatient E [facility] MED [id number] [facility] 04:42:00 04:42:00 2018-11-15 2018-11-15 Office Status, Nicolle DOMINGUEZ Encoun ter/ Legacy 00:00:00 00:00:00 Visit [id number] Com samantha [id number] Health 2018-11-10 2018-11-10 Office ROMULO Maldonado Encount er/ Legacy 00:00:00 00:00:00 Visit Clarissa [id number] Com samantha [id number] Health 2018-11-10 2018-11-10 Office Clarissa Maldonado Encounter/ Legacy 00:00:00 00:00:00 Visit Re Owen [id number] Mallory Amaya [id number] Fatimah [facility]rolaFormerly [facility] 2018-08-15 2018-08-15 Office Clarissa Maldonado Encounter/ Legacy 00:00:00 00:00:00 Visit Caren Beck [id number] Communi [id number] Health 2018-08-14 2018-08-14 Office ROMULO Duong Encounter/ Legacy 00:00:00 00:00:00 Visit Hoa [id number] Com samantha [id number] Health 2018-08-14 2018-08-14 Office ROMULO Duong Encounter/ Legacy 00:00:00 00:00:00 Visit Hoa [id number] Com samantha [id number] Health 2018-08-14 2018-08-14 Office ROMULO Duong ANGELICA Encounter/ Legacy 00:00:00 00:00:00 Visit Hoa [id number] Com samantha [id number] ty Health 2018-08-14 2018-08-14 Office [facility]co unter/ Legacy 00:00:00 00:00:00 Visit Ragini Toro [id number] [address] [place] [address] [id number] ty Health 2018-07-11 2018-07-11 Office EronClarissa regalado [facility] En[facility]/ Legacy 00:00:00 00:00:00 Visit Caren Beck [id number] [facility],, [place] [id number] ty Health 2018-07-06 2018-07-06 Office [facility]/ Legacy 00:00:00 00:00:00 Visit Clarissa [id number] Com samantha [id number] ty Health 2018-07-04 2018-07-04 Office [facility]/ Legacy 00:00:00 00:00:00 Visit Clarissa [id number] Com samantha [id number] ty Health 2018-07-04 2018-07-04 Office Jasonnathanielfabricio [facility] En[facility] er/ Legacy 00:00:00 00:00:00 Visit Clarissa [id number] Com samantha [id number] ty Health 2018-07-04 2018-07-04 Office Jasonnathanielfabricio [facility] Encount er/ Legacy 00:00:00 00:00:00 Visit Clarissa [id number] Com samantha [id number] ty Health 2018-07-04 2018-07-04 [facility] Legacy 00:00:00 00:00:00 Visit Radha Tom [id number] [facility] Casandra Kwna [id number] ty Health 2018-06-05 2018-06-05 Office [facility]/ Legacy 00:00:00 00:00:00 Visit Craen Beck [id number] [facility] [id number] ty Health 2018-05-31 2018-05-31 Office Moise Maldonadoana [facility] En[facility]/ Legacy 00:00:00 00:00:00 Visit Heri ChowdhuryCaren [id number] Communi [id number] Health 2018-05-02 2018-05-02 Office [facility] En[facility] er/ Legacy 00:00:00 00:00:00 Visit Clarissa [id number] Com samantha [id number] Health 2018-05-02 2018-05-02 Office [facility] En[facility] er/ Legacy 00:00:00 00:00:00 Visit Clarissa [id number] Com samantha [id number] Health 2018-03-27 2018-03-27 Office [facility] En[facility] er/ Legacy 00:00:00 00:00:00 Visit Clarissa [id number] Com samantha [id number] Health 2018-03-27 2018-03-27 Office [facility] En[facility] er/ Legacy 00:00:00 00:00:00 Visit Clarissa [id number] Com samantha [id number] Health 2018-03-27 2018-03-27 Office [facility] En[facility] er/ Legacy 00:00:00 00:00:00 Visit Clarissa [id number] Com samantha [id number] Health 2018-03-27 2018-03-27 Office [facility] En[facility] er/ Legacy 00:00:00 00:00:00 Visit Clarissa [id number] Com samantha [id number] Health 2018-01-25 2018-01-25 Office [facility] En[facility] er/ Legacy 00:00:00 00:00:00 Visit Clarissa [id number] Com samantha [id number] Health 2018-01-25 2018-01-25 Office [facility] En[facility] er/ Legacy 00:00:00 00:00:00 Visit Clarissa [id number] Com samantha [id number] Health 2018-01-25 2018-01-25 Office [facility] En[facility] er/ Legacy 00:00:00 00:00:00 Visit Clarissa [id number] Com samantha [id number] Health 2018-01-25 2018-01-25 Office [facility] Encount er/ Legacy 00:00:00 00:00:00 Visit Clarissa [id number] Com samantha [id number] Health 2017-12-12 2017-12-12 [facility]:00:00 00:00:00 Visit Clarissa [id number] Com samantha [id number] ty Health 2017-12-10 2017-12-10 [facility] Encount er/ Legacy 00:00:00 00:00:00 Visit Clarissa [id number] Com samantha [id number] ty Health 2017-11-01 2017-11-01 [facility] Legacy 00:00:00 00:00:00 Visit Radha [id number] Com samantha [id number] ty Health 2017-10-28 2017-10-28 [facility] Encount er/ Legacy 00:00:00 00:00:00 Visit Clarissa [id number] Com samantha [id number] Health 2017-10-28 2017-10-28 Office [facility] En[facility] er/ Legacy 00:00:00 00:00:00 Visit Clarissa [id number] Com samantha [id number] Health 2017-10-28 2017-10-28 Office [facility] Encounter/ Legacy 00:00:00 00:00:00 Visit Napoleon Ramirez [id number] Communi [id number] Health 2017-10-28 2017-10-28 [facility] Encount er/ Legacy 00:00:00 00:00:00 Visit Clarissa [id number] Com samantha [id number] ty Health 2017-10-28 2017-10-28 Office [facility] Encount er/ Legacy 00:00:00 00:00:00 Visit Clarissa [id number] Com samantha [id number] ty Health 2017-10-28 2017-10-28 [facility] En[facility] Legacy 00:00:00 00:00:00 Visit Ailyn Zavala [id number] Radha Musa [id number] Napoleon Ramirez Swapnil Lerner Jane 2017-08-11 2017-08-11 Office [facility] En[facility] er/ Legacy 00:00:00 00:00:00 Visit Clarissa [id number] Com samantha [id number] ty Health 2017-08-11 2017-08-11 Office [facility] En[facility] er/ Legacy 00:00:00 00:00:00 Visit Clarissa [id number] Com samantha [id number] ty Health 2017-08-09 2017-08-09 Office [facility] Encounter/ Legacy 00:00:00 00:00:00 Visit Krystina Morrow [id number] Reece Cardoza [id number] [facility] Health 2017-08-09 2017-08-09 Office [facility] En[facility] er/ Legacy 00:00:00 00:00:00 Visit Clarissa [id number] Com samantha [id number] Health 2017-08-06 2017-08-06 Office [facility] En[facility] er/ Legacy 00:00:00 00:00:00 Visit Clarissa [id number] Com samantha 926154 ty Health 2017-08-02 2017-08-02 Office [facility] En[facility] er/ Legacy 00:00:00 00:00:00 Visit Clarissa [id number] Com samantha [id number] ty Health 2017-08-02 2017-08-02 Office [facility] En[facility] er/ Legacy 00:00:00 00:00:00 Visit Clarissa [id number] Com samantha [id number] ty Health 2017-08-02 2017-08-02 Office [facility] Encounter/ Legacy 00:00:00 00:00:00 Visit Kiarra Aguirre [id number] [place] [address] 659139 ty Health 2017-07-30 2017-07-30 Office [facility] Encount er/ Legacy 00:00:00 00:00:00 Visit Clarissa [id number] Com samantha [id number] ty Health 2017-07-30 2017-07-30 [facility] Encount er/ Legacy 00:00:00 00:00:00 Visit Clarissa [id number] Com samantha [id number] Health 2017-07-30 2017-07-30 Office [facility] En[facility] er/ Legacy 00:00:00 00:00:00 Visit Clarissa [id number] Com samantha [id number] Health 2017-07-30 2017-07-30 Office [facility] En[facility] er/ Legacy 00:00:00 00:00:00 Visit Clarissa [id number] Com samantha [id number] Health 2017-07-30 2017-07-30 Office [facility] Encounter/ Legacy 00:00:00 00:00:00 Visit Radha Tom [id number] Genevieve Timmy Cohen [id number] Health 2017-06-29 2017-06-29 Office [facility] Encount er/ Legacy 00:00:00 00:00:00 Visit Clarissa [id number] Com samantha [id number] Health 2017-06-29 2017-06-29 Office [facility] En[facility] er/ Legacy 00:00:00 00:00:00 Visit Clarissa [id number] Com samantha [id number] Health 2017-06-29 2017-06-29 Office [facility] En[facility] er/ Legacy 00:00:00 00:00:00 Visit Clarissa [id number] Com samantha [id number] Health 2017-06-29 2017-06-29 Office [facility] En[facility] er/ Legacy 00:00:00 00:00:00 Visit Clarissa [id number] Com samantha [id number] Health 2017-06-26 2017-06-26 Office [facility] En[facility] er/ Legacy 00:00:00 00:00:00 Visit Clarissa [id number] Com samantha [id number] Health 2017-06-26 2017-06-26 Office [facility] Encount er/ Legacy 00:00:00 00:00:00 Visit Clarissa [id number] Com samantha [id number] [facility] 2017-06-08 2017-06-08 Office [facility] Encounter/ Legacy 00:00:00 00:00:00 Visit Kiarra Aguirre [id number] Musa [id number] Health 2017-06-03 2017-06-03 [facility] Encount er/ Legacy 00:00:00 00:00:00 Visit Clarissa [id number] Com samantha [id number] Health 2017-06-03 2017-06-03 [facility] Encount er/ Legacy 00:00:00 00:00:00 Visit Clarissa [id number] Com samantha [id number] Health 2017-05-06 2017-05-06 [facility] Encount er/ Legacy 00:00:00 00:00:00 Visit Clarissa [id number] Com samantha [id number] Health 2017-05-04 2017-05-04 [facility] Encount er/ Legacy 00:00:00 00:00:00 Visit Clarissa [id number] Com samantha [id number] Health 2017-05-01 2017-05-01 [facility] Encount er/ Legacy 00:00:00 00:00:00 Visit Clarissa [id number] Com samantha [id number] Health 2017-04-06 2017-04-06 [facility] Encount er/ Legacy 00:00:00 00:00:00 Visit Clarissa [id number] Com samantha [id number] Health 2017-04-04 2017-04-04 [facility] Encount er/ Legacy 00:00:00 00:00:00 Visit Clarissa [id number] Com samantha [id number] Health 2017-04-01 2017-04-01 [facility] Encount er/ Legacy 00:00:00 00:00:00 Visit Clarissa [id number] Com samantha [id number] Health 2017-03-06 2017-03-06 [facility] Encount er/ Legacy 00:00:00 00:00:00 Visit Clarissa [id number] Com samantha [id number] ty Health 2017-03-05 2017-03-05 [facility] Encount er/ Legacy 00:00:00 00:00:00 Visit Clarissa [id number] Com samantha [id number] ty Health 2017-02-27 2017-02-27 Office Shanalara [facility] Encount er/ Legacy 00:00:00 00:00:00 Visit Clarissa [id number] Com samantha [id number] ty Health 2017-02-23 2017-02-23 [facility] Encount er/ Legacy 00:00:00 00:00:00 Visit Clarissa [id number] Com samantha [id number] ty Health 2017-01-30 2017-01-30 Office Shanalara [facility] Encount er/ Legacy 00:00:00 00:00:00 Visit Clarissa [id number] Com samantha 485485 ty Health 2017-01-29 2017-01-29 Office [facility] Encount er/ Legacy 00:00:00 00:00:00 Visit Clarissa [id number] Com samantha [id number] ty Health 2016-12-20 2016-12-20 [facility] Encount er/ Legacy 00:00:00 00:00:00 Visit Clarissa [id number] Com samantha [id number] ty Health 2016-12-19 2016-12-19 [facility] Encount er/ Legacy 00:00:00 00:00:00 Visit Clarissa [id number] Com samantha 187128 ty Health 2016-12-16 2016-12-16 [facility] Legacy 00:00:00 00:00:00 Visit Kate [id number] Com samantha 279024 ty Health 2016-12-16 2016-12-16 [facility] Legacy 00:00:00 00:00:00 Visit Kate [id number] Com samantha 665474 ty Health 2016-12-16 2016-12-16 Office Kate Owen [facility] Enco unter/ Legacy 00:00:00 00:00:00 Visit Shikha Felton [id number] [facility] [id number] [facility] 2016-10-15 2016-10-15 Office Clarissa Maldonado [facility] Encounter/ Legacy 00:00:00 00:00:00 Visit Kiarra Aguirre [id number] [facility] [place] Pal[place] [id number] [facility] 2016-08-14 2016-08-14 Office Eron [facility] Encount er/ Legacy 00:00:00 00:00:00 Visit Clarissa [id number] Com samantha [id number] Health 2016-08-14 2016-08-14 Office Clarissa Maldonado [facility] Encounter/ Legacy 00:00:00 00:00:00 Visit Aura Perry [id number] [facility] [id number] [facility] 2016-07-27 2016-07-27 Outpatient [facility] [id number] [place] 11:29:47 11:29:47 Health 2016-07-27 2016-07-27 Outpatient [facility] [id number] [place] 09:10:43 09:10:43 Health 2016-07-27 2016-07-27 Outpatient [facility] [id number] [place] 00:00:00 00:00:00 Health 2016-06-30 2016-06-30 Office Radha Tom [facility] Encounter/ Legacy 00:00:00 00:00:00 Visit Clarissa Maldonado [id number] [facility] Sabrina Boateng [id number] [facility] 2016-06-30 2016-06-30 Office Kilo [facility] Encounte r/ Legacy 00:00:00 00:00:00 Visit Sabrina [id number] Co mmuni [id number] [facility] 2016-06-16 2016-06-16 Office Eron [facility] Encount er/ Legacy 00:00:00 00:00:00 Visit Clarissa [id number] Com samantha [id number] Health 2016-06-16 2016-06-16 Office Joel [facility] Encount er/ Legacy 00:00:00 00:00:00 Visit Clarissa [id number] Com samantha [id number] [facility] 2016-06-16 2016-06-16 Office Joel [facility] Encount er/ Legacy 00:00:00 00:00:00 Visit Clarissa [id number] Com samantha [id number] [facility] 2016-06-16 2016-06-16 Office Clarissa Maldonado [facility] Encounter/ Legacy 00:00:00 00:00:00 Visit Napoleon Ramirez [id number] [address] [place] [address] 710384 [facility] 2016-06-16 2016-06-16 Office Eron [facility] Encount er/ Legacy 00:00:00 00:00:00 Visit Clarissa [id number] Com samantha [id number] [facility] 2016-06-16 2016-06-16 Office Clarissa Maldonado [facility] Encounter/ Legacy 00:00:00 00:00:00 Visit Radha Tom [id number] [facility] Napoleon Ramirez [id number] [facility] 2016-05-27 2016-05-27 Outpatient [facility] [id number] [place] 12:22:18 12:22:18 Health 2016-03-09 2016-03-09 Outpatient [facility] [id number] [place] 10:29:48 10:29:48 Health Results Test Description Test Time Test Comments Results Result Comments Source POCT ACT LOW RANGE 2022-06-21 17:00:54 Test Item Value Reference Range Interpretation Comme nts ACTLR (test code = 5961149629) See_Comment H [Automated message] The system which generated this result transmitted ref erence range: 89 - 169 Seconds. The reference range was not u sed to interpret this result as normal/abnormal. Lab Interpretation (test code Abnormal = 30491-6) [facility] [id number] 17:00:54 Test Item Value Reference Range Interpretation Comments ACTLR (test code = See_Comment H [Automat ed message] [id number]) The system whic h generated this result transmitted ref erence range: 89 - 169 Seconds. The reference range was not used to int erpret this result as normal/abnormal . Lab Interpretation (test Abnormal code = 32187-3) [facility] [id number] 17:00:54 Test Item Value Reference Range Interpretation Comments ACTLR (test code = See_Comment H [Automat ed message] [id number]) The system Marakana generated this result transmitted ref erence range: 89 - 169 Seconds. The reference range was not used to int erpret this result as normal/abnormal . Lab Interpretation (test Abnormal code = 53450-6) [facility]2022-06-20 18:07:21 Test Item Value Reference Range Interpretation Comments Height (test code = in 6787525858) Weight (test code = lbs 0364406814) Systolic BP (test code mmHg = 4326777390) Diastolic BP (test code mmHg = 1089509703) Heart Rate (test code = bpm 8146577675) LVOT stroke volume 66.60 cm3 (test code = 3251948087) EF(Teich) (test code = 63.70 % 4980220948) LVIDD (test code = 5.50 cm 1902778197) LVIDS (test code = 3.60 cm 8119583860) Left Ventricular End 54.3 mL Systolic Volume by Teichholz Method (test code = 2030124) Left Ventricular End 149.4 mL Diastolic Volume by Teichholz Method (test code = 4194974) IVS (test code = 0.91 cm 3875201289) LVPWD (test code = 0.82 cm 7734376784) LVOT diameter (test 2.14 cm code = 5344679220) LVOT area (test code = 3.60 cm2 8751882021) FS (test code = 35 % 6763062306) MV Peak E Zev (test 123.7 cm/s code = 4302297496) MV Peak A Zev (test 54.8 cm/s code = 0079842264) E/A ratio (test code = ratio 8408051549) E wave decelartion time 0.13 s (test code = 1914689121) MV E/e' septal (test 6.6 cm/s code = 9852356680) LA Volume Index (BP) 37.1 mL/m2 (test code = 4963482344) LA volume (BP) (test 67.6 mL code = 6331515751) LVOT peak zev (test 101.9 cm/s code = 0206640835) LVOT mn grad (test code mmHg = 5183118201) Left Ventricular 6.3 L/min Cardiac Output (test code = 0020374) BSA (test code = 1.82 m2 9015774739) LA size (test code = 3.5 cm 2409237136) LAV(MOD-sp2) (test code 58.40 mL = 5081432539) LAV(MOD-sp4) (test code 61.50 mL = 9983236009) Tapse (test code = 2.6 cm 1564251682) AV LVOT peak gradient mmHg (test code = 0418113317) LVOT peak VTI (test 18.4 cm code = 0321234592) Aortic HR (test code = BPM 6565948961) LV V1 mean (test code = 60.70 cm/s 6320086775) MV Prop V (test code = 35.60 cm/s 8574099247) TR Peak Zev (test code 258.6 cm/s = 4920512965) Triscuspid Valve mmHg Regurgitation Peak Gradient (test code = 6586088961) Ao root diam (test code 3.50 cm = 0078623502) Aortic root (test code 3.5 cm = 4168805213) Ao root annulus (test 3.5 cm code = 0895185396) PW (test code = 0.82 cm 0.6-1.2 6411301082) EF - 2D (test code = 63.70 % 64409264) Interventricular Septum 0.91 cm Diastolic Thickness by 2D (test code = 0576807) MV peak gradient (test mmHg code = 1261117869) MV pk zev (test code = 140.5 cm/s 9959521803) MV mean gradient (test mmHg code = 6120104901) MV valve area by 2.60 cm2 continuity eq (test code = 5219560051) MV VTI (test code = 25.9 cm 2778114227) MV V2 mean (test code = 72.20 cm/s 0810002327) Ao peak zev (test code 143.9 cm/s = 4910205886) AV area peak zev (test 2.6 cm2 code = 5070112829) Ao max PG (test code = 8.30 mm[Hg] 5170957632) AV peak gradient (test mmHg code = 6715226861) Aortic valve mean 100.8 cm/s velocity (test code = 6915189003) Ao VTI (test code = 20.5 cm 7816824460) AV area by cont VTI 3.2 cm2 (test code = 2568812424) AV valve area (test 3.20 cm2 code = 7136224601) AV mean gradient (test mmHg code = 5096740006) Radiology Study observation (narrative) (test code = 05550-9) DANIELA (test code = DANIELA) ?Left?Ventricle: Left ventricle size is normal. Normal wall thickness. Normal wall motion. Normal systolic function with a visually estimated EF of 55 - 60%, unable to do simson biplane method due to poor endocardial boarder and no contrast. Unable to assess diastolic function due to E-A fusion. ?Right?Ventricle: Right ventricle size is normal. Normal systolic function. ?Tricuspid?Valve: Tricuspid valve structure is normal. Mild transvalvular regurgitation. Right ventricular systolic pressure is 25-30 mmHg. ?IVC/SVC: IVC diameter is less than or equal to 21 mm and decreases greater than 50% during inspiration; therefore the estimated right atrial pressure is normal (~0-5 mmHg). Left VentricleLeft ventricle size is normal. Normal wall thickness. Normal wall motion. Normal systolic function with a visually estimated EF of 55 - 60%, unable to do simson biplane method due to poor endocardial boarder and no contrast. Unable to assess diastolic function due to E-A fusion.Right VentricleRight ventricle size is normal. Normal systolic function.Left AtriumLeft atrium is mildly dilated.Right AtriumRight atrium size is normal.IVC/SVCIVC diameter is less than or equal to 21 mm and decreases greater than 50% during inspiration; therefore the estimated right atrial pressure is normal (~0-5 mmHg).Mitral ValveMitral valve structure is normal. No transvalvular regurgitation. No stenosis.Tricuspid ValveTricuspid valve structure is normal. Mild transvalvular regurgitation. Right ventricular systolic pressure is 25-30 mmHg.Aortic ValveAortic valve structure is normal. No transvalvular regurgitation. No hemodynamically significant .Pulmonic ValveNot well visualized. No transvalvular regurgitation. No stenosis.Ascending AortaNormal sized sinus of Valsalva.PericardiumTh e pericardium is normal.Study DetailsStudy quality experienced technical difficulty. A complete echocardiogram was performed using 2D, color flow Doppler and spectral Doppler. [facility]-20 18:07:21 Test Item Value Reference Range Interpretation Comments Height (test code = in 5459551595) Weight (test code = lbs 8404756290) Systolic BP (test code mmHg = 3716005801) Diastolic BP (test code mmHg = 3317227831) Heart Rate (test code = bpm 4478659887) LVOT stroke volume 66.60 cm3 (test code = 8503813569) EF(Teich) (test code = 63.70 % 5574049414) LVIDD (test code = 5.50 cm 3284589610) LVIDS (test code = 3.60 cm 3092481810) Left Ventricular End 54.3 mL Systolic Volume by Teichholz Method (test code = 8825158) Left Ventricular End 149.4 mL Diastolic Volume by Teichholz Method (test code = 2478012) IVS (test code = 0.91 cm 4406522167) LVPWD (test code = 0.82 cm 2356366925) LVOT diameter (test 2.14 cm code = 6142248813) LVOT area (test code = 3.60 cm2 1418673050) FS (test code = 35 % 1905707080) MV Peak E Zev (test 123.7 cm/s code = 8362947197) MV Peak A Zev (test 54.8 cm/s code = 0478289549) E/A ratio (test code = ratio 4129514178) E wave decelartion time 0.13 s (test code = 9706304720) MV E/e' septal (test 6.6 cm/s code = 6788451337) LA Volume Index (BP) 37.1 mL/m2 (test code = 5701157485) LA volume (BP) (test 67.6 mL code = 5432442232) LVOT peak zev (test 101.9 cm/s code = 8502658113) LVOT mn grad (test code mmHg = 3882372616) Left Ventricular 6.3 L/min Cardiac Output (test code = 2604383) BSA (test code = 1.82 m2 2950241850) LA size (test code = 3.5 cm 4599676311) LAV(MOD-sp2) (test code 58.40 mL = 4213737238) LAV(MOD-sp4) (test code 61.50 mL = 0639743419) Tapse (test code = 2.6 cm 5211522426) AV LVOT peak gradient mmHg (test code = 0035087316) LVOT peak VTI (test 18.4 cm code = 9057721023) Aortic HR (test code = BPM 3110240267) LV V1 mean (test code = 60.70 cm/s 5023097276) MV Prop V (test code = 35.60 cm/s 6009254894) TR Peak Zev (test code 258.6 cm/s = 1804399062) Triscuspid Valve mmHg Regurgitation Peak Gradient (test code = 3721457502) Ao root diam (test code 3.50 cm = 3718448620) Aortic root (test code 3.5 cm = 9067951307) Ao root annulus (test 3.5 cm code = 7148589830) PW (test code = 0.82 cm 0.6-1.0 0004074962) EF - 2D (test code = 63.70 % 87569182) Interventricular Septum 0.91 cm Diastolic Thickness by 2D (test code = 7084451) MV peak gradient (test mmHg code = 7376936563) MV pk zev (test code = 140.5 cm/s 6766785934) MV mean gradient (test mmHg code = 0915413527) MV valve area by 2.60 cm2 continuity eq (test code = 5953184689) MV VTI (test code = 25.9 cm 4703115868) MV V2 mean (test code = 72.20 cm/s 6354350664) Ao peak zev (test code 143.9 cm/s = 2826819028) AV area peak zev (test 2.6 cm2 code = 0889210054) Ao max PG (test code = 8.30 mm[Hg] 5797490832) AV peak gradient (test mmHg code = 0342394167) Aortic valve mean 100.8 cm/s velocity (test code = 0369514391) Ao VTI (test code = 20.5 cm 5293471602) AV area by cont VTI 3.2 cm2 (test code = 1541232927) AV valve area (test 3.20 cm2 code = 9357565371) AV mean gradient (test mmHg code = 0173886040) Radiology Study observation (narrative) (test code = 48307-1) DANIELA (test code = DANIELA) ?Left?Ventricle: Left ventricle size is normal. Normal wall thickness. Normal wall motion. Normal systolic function with a visually estimated EF of 55 - 60%, unable to do simson biplane method due to poor endocardial boarder and no contrast. Unable to assess diastolic function due to E-A fusion. ?Right?Ventricle: Right ventricle size is normal. Normal systolic function. ?Tricuspid?Valve: Tricuspid valve structure is normal. Mild transvalvular regurgitation. Right ventricular systolic pressure is 25-30 mmHg. ?IVC/SVC: IVC diameter is less than or equal to 21 mm and decreases greater than 50% during inspiration; therefore the estimated right atrial pressure is normal (~0-5 mmHg). Left VentricleLeft ventricle size is normal. Normal wall thickness. Normal wall motion. Normal systolic function with a visually estimated EF of 55 - 60%, unable to do simson biplane method due to poor endocardial boarder and no contrast. Unable to assess diastolic function due to E-A fusion.Right VentricleRight ventricle size is normal. Normal systolic function.Left AtriumLeft atrium is mildly dilated.Right AtriumRight atrium size is normal.IVC/SVCIVC diameter is less than or equal to 21 mm and decreases greater than 50% during inspiration; therefore the estimated right atrial pressure is normal (~0-5 mmHg).Mitral ValveMitral valve structure is normal. No transvalvular regurgitation. No stenosis.Tricuspid ValveTricuspid valve structure is normal. Mild transvalvular regurgitation. Right ventricular systolic pressure is 25-30 mmHg.Aortic ValveAortic valve structure is normal. No transvalvular regurgitation. No hemodynamically significant .Pulmonic ValveNot well visualized. No transvalvular regurgitation. No stenosis.Ascending AortaNormal sized sinus of Valsalva.PericardiumTh e pericardium is normal.Study DetailsStudy quality experienced technical difficulty. A complete echocardiogram was performed using 2D, color flow Doppler and spectral Doppler. [facility] BranchLIPID PAN[facility] (70671)(TOTAL CHOLESTEROL, TRIGLYCERIDES, HDL)2022-06-20 05:17:11 Test Item Value Reference Range Interpretation Comments CHOL (test code = 125 mg/dL 120-200 0801141092) HDL (test code = 31 mg/dL See_Comment L [Automated message] 1059435240) The system Marakana generated this result transmit tricia reference range : >=50. The refer ence range was not u sed to interpret th is result as normal/abnormal . HDLC RATIO (test code = See_Comment [Au tomated message] [id number]) The system Marak[employer] generated this result transmit tricia reference range : <=4.5. The refe rence range was not u sed to interpret th is result as normal/abnormal . TRIG (test code = 323 mg/dL 30-170 H 7592084738) LDL CHOL (test code = 29 mg/dL See_Comment [Auto mated message] 09700-9) The system [employer]ak[employer] generated this result transmit tricia reference range : <=160. The refe rence range was not u sed to interpret th is result as normal/abnormal . VLDL (test code = 65 mg/dL 5-60 H 7710020112) Lab Interpretation (test Abnormal code = 09324-9) [facility]TOTAL CHOLESTEROL, TRIGLYCERIDES, HDL)2022-06-20 05:17:11 Test Item Value Reference Range Interpretation Comments CHOL (test code = 125 mg/dL 120-200 9033348301) HDL (test code = 31 mg/dL See_Comment L [Automated message] 4662107115) The system Marak[employer] generated this result transmit tricia reference range : >=50. The refer ence range was not u sed to interpret th is result as normal/abnormal . HDLC RATIO (test code = See_Comment [Au tomated message] 0040728577) The system [employer]ak[employer] generated this result transmit tricia reference range : <=4.5. The refe rence range was not u sed to interpret th is result as normal/abnormal . TRIG (test code = 323 mg/dL 30-170 H 5981938586) LDL CHOL (test code = 29 mg/dL See_Comment [Auto mated message] 55577-7) The system Marak[employer] generated this result transmit tricia reference range : <=160. The refe rence range was not u sed to interpret th is result as normal/abnormal . VLDL (test code = 65 mg/dL 5-60 H 1314261221) Lab Interpretation (test Abnormal code = 23173-9) [facility] GLUCOSE (AUTOMATED)2022-06-20 01:00:39 Test Item Value Reference Range Interpretation Comments POCT GLU (test code = 6581533670) 315 mg/dL 70-110 H Lab Interpretation (test code = Abnormal 59972-3) [facility] GLUCOSE (AUTOMATED)2022-06-20 01:00:39 Test Item Value Reference Range Interpretation Comments POCT GLU (test code = 3996480096) 315 mg/dL 70-110 H Lab Interpretation (test code = Abnormal 18559-5) [facility] GLUCOSE (AUTOMATED)2022-06-19 22:06:37 Test Item Value Reference Range Interpretation Comments POCT GLU (test code = 1831255140) 271 mg/dL 70-110 H Lab Interpretation (test code = Abnormal 33882-3) [facility] GLUCOSE (AUTOMATED)2022-06-19 22:06:37 Test Item Value Reference Range Interpretation Comments POCT GLU (test code = 8860254469) 271 mg/dL 70-110 H Lab Interpretation (test code = Abnormal 20622-5) [facility] [id number] 19:52:26 Test Item Value Reference Range Interpretation Comments TSH (test code = See_Comment Biotin has been [id number]) reported to cau se a negative bias, interpret resul ts relative to pat ient's use of biotin. [Automated mess age] The system Marak[employer] generated this result transmitted ref erence range: 0.45 - 4 .70 mIU/L. The refe rence range was not u sed to interpret this result as normal/abnor mal. Lab Interpretation (test Normal code = 03049-3) [facility] [id number] 19:52:26 Test Item Value Reference Range Interpretation Comments TSH (test code = See_Comment Biotin has been [id number]) reported to cau se a negative bias, interpret resul ts relative to pat ient's use of biotin. [Automated mess age] The system Marak[employer] generated this result transmitted ref erence range: 0.45 - 4 .70 mIU/L. The refe rence range was not u sed to interpret this result as normal/abnor mal. Lab Interpretation (test Normal code = 13739-7) [facility] 17:58:38 Test Item Value Reference Range Interpretation Comments MAGNESIUM (test code = 2209057506) 1.6 mg/dL 1.7-2.4 L Lab Interpretation (test code = Abnormal 11281-2) [facility] 17:58:38 Test Item Value Reference Range Interpretation Comments MAGNESIUM (test code = 1089670956) 1.6 mg/dL 1.7-2.4 L Lab Interpretation (test code = Abnormal 84014-0) [facility]for use with [facility] Infusion)2022-06-19 17:49:17 Test Item Value Reference Range Interpretation Comments APTT Patient (test code = See_Comment [ Automated message] 3173-2) The system Marak[employer] generated this result transmitted ref erence range: 26 - 36 Seconds. The re ference range was not u sed to interpret this result as normal/abnor mal. Lab Interpretation (test Normal code = 32059-6) [facility]2022-06-19 17:49:17 Test Item Value Reference Range Interpretation Comments APTT Patient (test code = See_Comment [ Automated message] 3173-2) The system Marak[employer] generated this result transmitted ref erence range: 26 - 36 Seconds. The re ference range was not u sed to interpret this result as normal/abnor mal. Lab Interpretation (test Normal code = 99293-3) [facility] GLUCOSE (AUTOMATED)2022-06-19 17:16:40 Test Item Value Reference Range Interpretation Comments POCT GLU (test code = 0348341379) 484 mg/dL 70-110 HH Lab Interpretation (test code = Abnormal 79359-9) [facility] GLUCOSE (AUTOMATED)2022-06-19 17:16:40 Test Item Value Reference Range Interpretation Comments POCT GLU (test code = 8634478303) 484 mg/dL 70-110 HH Lab Interpretation (test code = Abnormal 62217-5) [facility] [id number] 16:13:33 Test Item Value Reference Range Interpretation Comments APTT Patient (test code See_Comment H [Au tomated message] = 3173-2) The system Marakana generated this result transmitted ref erence range: 26 - 36 Seconds. The reference range was not used to int erpret this result as normal/abnormal . Lab Interpretation (test Abnormal code = 45356-7) [facility] [id number] 16:13:33 Test Item Value Reference Range Interpretation Comments APTT Patient (test code See_Comment H [Au tomated message] = 3173-2) The system Marak[employer] generated this result transmitted ref erence range: 26 - 36 Seconds. The reference range was not used to int erpret this result as normal/abnormal . Lab Interpretation (test Abnormal code = 34067-7) [facility]GLY[facility]OSYL[facility] HEMOGLOBIN (A1C)2022-06-19 15:10:36 Test Item Value Reference Range Interpretation Comments HGB A1C (test code = 10.3 % 4-5.7 H 4548-4) DANIELA (test code = DANIELA) Reference RangesNormal: <5.7%Prediabetes: 5.7 - 6.4%Diabetes: > 6.5% Lab Interpretation (test Abnormal code = 10788-6) [facility]A1C)2022-06-19 15:10:36 Test Item Value Reference Range Interpretation Comments HGB A1C (test code = 10.3 % 4-5.7 H 4548-4) DANIELA (test code = DANIELA) Reference RangesNormal: <5.7%Prediabetes: 5.7 - 6.4%Diabetes: > 6.5% Lab Interpretation (test Abnormal code = 49822-7) [facility]2022-[facility] 09:49:00 Test Item Value Reference Range Interpretation Comments LIPASE (test code = 6973230930) 22 U/L 0-220 Lab Interpretation (test code = Normal 33780-9) [facility] HospitalCOMP. METABOLIC PANEL (55852)2022-06-19 09:37:45 Test Item Value Reference Range Interpretation Comments NA (test code = 124 mmol/L 135-145 L 5044438855) K (test code = 4.1 mmol/L 3.5-5 8228118401) CL (test code = 85 mmol/L 98-108 L 3838877260) CO2 TOTAL (test code = 26 mmol/L 23-31 7526944550) AGAP (test code = 2-16 8087336277) BUN (test code = 22 mg/dL 7-23 3306369784) GLUCOSE (test code = 645 mg/dL 70-110 HH 1082563042) CREATININE (test code = 1.15 mg/dL 0.5-1.04 H 4574756322) TOTAL BILI (test code = 0.7 mg/dL 0.1-1.0 2000512710) CALCIUM (test code = 9.2 mg/dL 8.6-10.6 3444689739) T PROTEIN (test code = 6.1 g/dL 6.3-8.2 L 3397660047) ALBUMIN (test code = 4.0 g/dL 3.5-5 1195592239) ALK PHOS (test code = 93 U/L 34-122 9468257191) ALTv (test code = 38 U/L 5-35 H 1742-6) AST(SGOT) (test code = 103 U/L 13-40 H 5596773475) eGFR (test code = mL/min/1.73m2 4613618201) DANIELA (test code = DANIELA) Association of Glomerular Filtration Rate (GFR) and Staging of Kidney Disease* + --+ --+ ------+| GFR (mL/min/1.73 m2) ?| With Kidney Damage ?| ?Without Kidney Damage+ --------+ --------+ +| ?>90 ?| ?Stage one ?| ? Normal ?+ ---+ ---+ -------+| ?60-89 ?| ?Stage two ?| ? Decreased GFR ? + --+ --+ ------+| ?30-59 ?| ?Stage three ?| ? Stage three ? + --+ --+ ------+| ?15-29 ?| ?Stage four ? | ? Stage four ?+ ---+ ---+ -------+| ?<15 (or dialysis) ? ?| ?Stage five ? | ? Stage five ?+ ---+ ---+ -------+ *Each stage assumes the associated GFR level has been in effect for at least three months. ?Stages 1 to 5, with or without kidney disease, indicate chronic kidney disease. Notes: Determination of stages one and two (with eGFR >59mL/min/1.73 m2) requires estimation of kidney damage for at least three months as defined by structural or functional abnormalities of the kidney, manifested by either:Pathological abnormalities or Markers of kidney damage (including abnormalities in the composition of the blood or urine or abnormalities in imaging tests). Lab Interpretation Abnormal (test code = 44952-3) [facility]TR[facility] [id number] 09:30:06 Test Item Value Reference Interpretation Comments Range TROPONIN I (test 30.700 ng/mL See_Comment H [Automated code = 5506970827) message] The system which generated this result transmitted reference range : <=0.034. The reference range was not used to interpret this result as normal/abnormal . DANIELA (test code = Reference (Normal) DANIELA) Range (defined by the 99th percentile reference limit): <= 0.034 ng/mL Note: Cardiac troponin begins to rise 3-4 hours after the onset of ischemia. Repeat in 4-6 hours if the sample was drawn within 3-4 hours of the onset of the symptom and found normal. Diagnosis of myocardial injury is made with acute changes in cTn concentrations with at least one serial sample above the 99th percentile upper reference limit (URL), taken together with the patient's clinical presentation. Biotin has been reported to cause a negative bias, interpret results relative to patient's use of biotin. Lab Interpretation Abnormal (test code = 29169-4) [facility] HospitalN-[facility]MINAL [id number] 09:26:49 Test Item Value Reference Range Interpretation Comments NT-proBNP (test code 6850 pg/mL See_Comment H [Autom ated = 1689636380) message] The system which generated this result transmitted reference range : <=125. The reference range was not used to interpret this result as normal/abnormal . DANIELA (test code = DANIELA) Biotin has been reported to cause a negative bias, interpret results relative to patient's use of biotin. Lab Interpretation Abnormal (test code = 96226-8) [facility] [id number] 09:18:29 Test Item Value Reference Range Interpretation Comments APTT Patient (test See_Comment [Automat ed code = 3173-2) message] The system which generated this result transmitted reference range : 23 - 38 Seconds . The reference range was not used to interpr et this result as normal/abnormal . DANIELA (test code = DANIELA) The [facility] patient population mean normal value for aPTT is 30 seconds. Lab Interpretation Normal (test code = 14978-0) [facility] HospitalPROTHROMBIN TIME / [id number] 09:16:28 Test Item Value Reference Range Interpretation Comments PROTIME PATIENT (test See_Comment [Auto mated message] code = 5964-2) The system wh ich generated this result transmitted ref erence range: 12.0 - 1 4.7 Seconds. The re ference range was not u sed to interpret this result as normal/abnor mal. INR (test code = 6301-6) Nor mal INR <1.1; Warfarin Therap eutic range 2.0 to 3. 0 or 2.5 to 3.5, dep ending upon the indica tions. Lab Interpretation (test Normal code = 74278-1) [facility] HospitalCB WITH [id number] 09:05:05 Test Item Value Reference Range Interpretation Comments WBC (test code = See_Comment [Automated 6690-2) message] The sy stem which generated this result transmitted reference range : 4.30 - 11.10 10*3/?L. The reference range was not used to interpret this result as normal/abnormal . RBC (test code = See_Comment L [Automated 499-8) message] The sy stem which generated this result transmitted reference range : 3.93 - 5.25 10*6/?L. The reference range was not used to interpret this result as normal/abnormal . HGB (test code = 10.4 g/dL 11.6-15 L 718-7) HCT (test code = 30.0 % 35.7-45.2 L 4544-3) MCV (test code = 93.5 fL 80.6-95.5 787-2) MCH (test code = 32.4 pg 25.9-32.8 785-6) MCHC (test code = 34.7 g/dL 31.6-35.1 786-4) RDW-SD (test code = 49.8 fL 39-49.9 10730-0) RDW-CV (test code = 15.1 % 12-15.5 788-0) PLT (test code = See_Comment H [Automated 777-3) message] The sy stem which generated this result transmitted reference range : 166 - 358 10*3/ ?L. The reference r malinda was not used to interpret this result as normal/abnormal . MPV (test code = 9.7 fL 9.5-12.9 24352-0) NRBC/100 WBC (test See_Comment [Automat ed code = 8222013569) message] The system which generated this result transmitted reference range : 0.0 - 10.0 /100 WBCs. The refer ence range was not u sed to interpret th is result as normal/abnormal . NRBC x10^3 (test code See_Comment [Auto mated = 4391614491) message] The s ystem which generated this result transmitted reference range : 10*3/?L. The reference range was not used to interpret this result as normal/abnormal . GRAN MAT (NEUT) % 73.8 % (test code = 770-8) IMM GRAN % (test code 0.60 % = 8456403236) LYMPH % (test code = 15.6 % 736-9) MONO % (test code = 9.8 % 5905-5) EOS % (test code = 0.1 % 713-8) BASO % (test code = 0.1 % 706-2) GRAN MAT x10^3(ANC) 6.50 10*3/uL 1.88-7.09 (test code = 1470382501) IMM GRAN x10^3 (test 0.05 10*3/uL 0-0.06 code = 1230614975) LYMPH x10^3 (test code 1.37 10*3/uL 1.32-3.29 = 731-0) MONO x10^3 (test code 0.86 10*3/uL 0.33-0.92 = 742-7) EOS x10^3 (test code = 0.03-0.39 L 711-2) BASO x10^3 (test code 0.01-0.07 = 704-7) Lab Interpretation Abnormal (test code = 03427-5) [facility]OPH[facility]AL[facility]OLOG[facility] RETINAL [id number] 13:55:20 Test Item Value Reference Range Interpretation Comments RETINAL SCAN-FINAL ALERT A RESULT (test code = 93092) Right Diabetic Mild A Retinopathy (test code = 391045) Right Macular Edema None (test code = 77826) Right Other Suspected None Conditions (test code = 69105) Right Image Quality Gradable Image (test code = 47668) Left Diabetic Mild A Retinopathy (test code = 64222) Left Macular Edema None (test code = 76860) Left Other Suspected None Conditions (test code = 38704) Left Image Quality Gradable Image (test code = 07900) DANIELA (test code = DANIELA) Retinal Study Result for al LARA 51 y/o, F (: 1970, )presented to [facility] on 05-18-2022 for a retinal imaging study of the left and right eyes. Based on the findings of the study, the following is recommended for RSOIO [facility] Pathology Found: Please advise the patient to return for another scan in 1 year. Interpreting Provider's Comments: No comments provided Right eye findings: Diabetic Retinopathy: MildNegative for Macular Edema Left eye findings: Diabetic Retinopathy: MildNegative for Macular Edema This result was electronically signed by Pollo Mendosa MD, , Taxonomy: [id number] on 05-18-2022 18:55 UTC. NOTE: Any pathology noted on this diabetic retinal evaluation should be confirmed by an appropriate ophthalmic examination. Lab Interpretation Abnormal (test code = 93859-8) [facility] RETINAL [id number] 13:55:20 Test Item Value Reference Range Interpretation Comments RETINAL SCAN-FINAL ALERT A RESULT (test code = 71236) Right Diabetic Mild A Retinopathy (test code = 904500) Right Macular Edema None (test code = 44544) Right Other Suspected None Conditions (test code = 82220) Right Image Quality Gradable Image (test code = 15063) Left Diabetic Mild A Retinopathy (test code = 76113) Left Macular Edema None (test code = 12918) Left Other Suspected None Conditions (test code = 72722) Left Image Quality Gradable Image (test code = 34164) DANIELA (test code = DANIELA) Retinal Study Result for la LARA 51 y/o, F (: 1970, )presented to [facility] on 05-18-2022 for a retinal imaging study [...] signed by Pollo Mendosa MD, , Taxonomy: [id number] on 05-18-2022 18:55 UTC. NOTE: Any pathology noted on this diabetic retinal evaluation should be confirmed by an appropriate ophthalmic examination. Lab Interpretation Abnormal (test code = 78696-3) [facility] [id number] 13:55:20 Test Item Value Reference Range Interpretation Comments RETINAL SCAN-FINAL ALERT A RESULT (test code = 41209) Right Diabetic Mild A Retinopathy (test code = 905993) Right Macular Edema None (test code = 25968) Right Other Suspected None Conditions (test code = 98026) Right Image Quality Gradable Image (test code = 66868) Left Diabetic Mild A Retinopathy (test code = 14505) Left Macular Edema None (test code = 97285) Left Other Suspected None Conditions (test code = 88489) Left Image Quality Gradable Image (test code = 02920) DANIELA (test code = DANIELA) Retinal Study Result for la LARA 51 y/o, F (: 1970, )presented to [facility] on 05-18-2022 for a retinal imaging study [...] signed by Pollo Mendosa MD, , Taxonomy: [id number] on 05-18-2022 18:55 UTC. NOTE: Any pathology noted on this diabetic retinal evaluation should be confirmed by an appropriate ophthalmic examination. Lab Interpretation Abnormal (test code = 09318-8) [facility] [id number] 13:55:20 Test Item Value Reference Range Interpretation Comments RETINAL SCAN-FINAL ALERT A RESULT (test code = 30754) Right Diabetic Mild A Retinopathy (test code = 103325) Right Macular Edema None (test code = 23123) Right Other Suspected None Conditions (test code = 18422) Right Image Quality Gradable Image (test code = 98181) Left Diabetic Mild A Retinopathy (test code = 03533) Left Macular Edema None (test code = 00009) Left Other Suspected None Conditions (test code = 27824) Left Image Quality Gradable Image (test code = 29838) DANIELA (test code = DANIELA) Retinal Study Result for ROSIO MERCADO, la 51 y/o, F (: 1970, )presented to [facility] on 05-18-2022 for a retinal imaging study [...] signed by Pollo Mendosa MD, , Taxonomy: [id number] on 05-18-2022 18:55 UTC. NOTE: Any pathology noted on this diabetic retinal evaluation should be confirmed by an appropriate ophthalmic examination. Lab Interpretation Abnormal (test code = 04747-9) [facility] [id number] 13:55:20 Test Item Value Reference Range Interpretation Comments RETINAL SCAN-FINAL ALERT A RESULT (test code = 98023) Right Diabetic Mild A Retinopathy (test code = 711251) Right Macular Edema None (test code = 01074) Right Other Suspected None Conditions (test code = 61009) Right Image Quality Gradable Image (test code = 13515) Left Diabetic Mild A Retinopathy (test code = 33173) Left Macular Edema None (test code = 68328) Left Other Suspected None Conditions (test code = 48363) Left Image Quality Gradable Image (test code = 58651) DANIELA (test code = DANIELA) Retinal Study Result for la LARA 51 y/o, F (: 1970, )presented to [facility] on 05-18-2022 for a retinal imaging study [...] signed by Pollo Mendosa MD, , Taxonomy: [id number] on 05-18-2022 18:55 UTC. NOTE: Any pathology noted on this diabetic retinal evaluation should be confirmed by an appropriate ophthalmic examination. Lab Interpretation Abnormal (test code = 35821-0) [facility] [id number] 12:27:55 Test Item Value Reference Range Interpretation Comments LVOT SV (test code 88.9 cm3 = 7421525460) LVOT SI (test code 46.83 ml/m2 = 82017989) LV EDV 2D (test 104.45 mL code = 4170193) LV ESV 2D (test 33.89 mL code = 8278182) LV ESV index 2D 18.22 ml/m2 (test code = 9798444977) LV EDV index 2D 56.14 ml/m2 (test code = 6805622351) IVSd (test code = 1.12 cm 0.6-0.9 8368781331) LVPWd (test code = 1.09 cm 1210582502) LVIDd (test code = 4.7 cm 3.8-5.2 9119681218) LVIDd index (test 25.5 ml/m2 2.3-3.1 code = 26180377) LVIDs (test code = 3.0 cm 2.2-3.5 0711765872) LVIDs index (test 15.9 ml/m2 1.3-2.3 code = 31879810) FS % (test code = 36.2 % See_Comment [Automate d 2941979544) message] The system which generated this result transmitted reference range : >18%. The reference range was not used to interpret this result as normal/abnormal . RWT (test code = 0.5 See_Comment [Automated 2612967258) message] The system which generated this result transmitted reference range : <=0.42. The reference range was not used to interpret this result as normal/abnormal . LVOT diam (test 2.2 cm code = 8706036729) LVOT area (test 3.80 cm2 code = 6876436088) LV mass (linear 192.2 g 67-162 method) (test code = 2736299528) LVMI (2D) (test 103.3 g/m2 44-88 code = 7550668933) MV E zev (test 83.06 cm/s code = 7129108947) MV A zev (test 84.36 cm/s code = 1462378726) MV E/A ratio (test 1.0 code = 9210126366) E/e' average (test 9.0 <14 code = 8918841897) LVOT peak zev 1.25 m/s (test code = 3129547526) LVOT mean grad 2.5 mmHg (test code = 6768930264) LVOT pk grad rest 6 mmHg (test code = 2160978275) LA AP dimension 3.2 cm <3.8 (ES) (test code = 0294752134) LA/Ao ratio (test 0.600016037257262 code = 7564129240) LVOT peak grad 6.2 mmHg (test code = 2981028827) LVOT VTI (test 23.4 cm code = 2481106379) LVOT SV index 46.8 mL/m2 (test code = 9298602939) LV RWT 2D (test 46.121368608796062 code = 8857120631) LV mass size 1 192.2 cm (test code = 1389364873) LVPWd (test code = 10.9 cm 0.6-0.9 2653641859) IVSd 2D (test code 11.210669289390009 = 8911389) cm Sinuses of 3.1 cm 3.6-3.6 Valsalva (test code = 8824521035) Sinus of Valsalva 31.14 cm (test code = 3775898856) RVOT VTI (test 20.5 cm code = 2980243499) TAPSE (test code = 2.9 cm See_Comment [Automat ed 3642357891) message] The system which generated this result transmitted reference range : >=1.7. The reference range was not used to interpret this result as normal/abnormal . IRIS (2D biplane) 15.529 mL/m2 9-33 (test code = 9685626758) PV mean grad (test 2.1 mmHg code = 4478030681) PV peak zev (test 95.92 cm/s code = 1701736381) PV peak grad (test 3.7 mmHg code = 9650508368) PV VTI (test code 21.313070077673121 = 6510354) cm RVOT mn grad (test 1.525797744629177 mmHg code = 2099351734) RVOT pk grad (test 3.2 mmHg code = 0288117070) PV mean zev (test 0.07 cm/s code = 9763088069) RVOT pk zev (test 0.90 mm/s code = 1842199511) TO7BKZIEOT (test 15.5 SW9HRZTFYH code = 8698108922) AV EROA cont eq 2.96 cm2 (test code = 3355288458) AV peak zev (test 1.47 m/s code = 7365994439) AV peak grad (test 8.6 mmHg code = 3651677844) AV mean grad (test 4.1 mmHg code = 0485884550) AV mean zev (test 0.9 m/sec code = 6769149739) AV VTI (test code 29.4 cm = 1878560532) RAUL VTI index 1.59 cm2/m2 (test code = 0408393650) RAUL VTI (test code 2.96 cm2 = 8726081616) RAUL peak zev (test 3.16 cm2 code = 4947265808) AV Doppler zev 0.85 index pk zev (test code = 6992859314) AV Doppler zev 0.80 index VTI (test code = 0847871095) AV zev ratio (test 0.85 AVRATIO code = 0200161992) A2CEF (test code = 66.7 % 5277524322) LV ESV index A2C 15.76 ml/m2 (test code = 5944146688) LV ESV A2C (test 29.32 mL code = 6690363290) LV EDV index A2C 47.33 ml/m2 (test code = 7741508209) Radiology Study observation (narrative) (test code = 66509-0) DANIELA (test code = DANIELA) Left Ventricle: [...] 1.00The left ventricular wall motion is normal. [facility] [id number] 12:27:55 Test Item Value Reference Range Interpretation Comments LVOT SV (test code 88.9 cm3 = 0480917296) LVOT SI (test code 46.83 ml/m2 = 63794122) LV EDV 2D (test 104.45 mL code = 1278519) LV ESV 2D (test 33.89 mL code = 5474347) LV ESV index 2D 18.22 ml/m2 (test code = 5828269037) LV EDV index 2D 56.14 ml/m2 (test code = 5086385454) IVSd (test code = 1.12 cm 0.6-0.9 9929549893) LVPWd (test code = 1.09 cm 6750950793) LVIDd (test code = 4.7 cm 3.8-5.2 9107760249) LVIDd index (test 25.5 ml/m2 2.3-3.1 code = 70900715) LVIDs (test code = 3.0 cm 2.2-3.5 5354837622) LVIDs index (test 15.9 ml/m2 1.3-2.3 code = 36865746) FS % (test code = 36.2 % See_Comment [Automate d [id number]) message] The system which generated this result transmitted reference range : >18%. The reference range was not used to interpret this result as normal/abnormal . RWT (test code = 0.5 See_Comment [Automated [id number]) message] The system which generated this result transmitted reference range : <=0.42. The reference range was not used to interpret this result as normal/abnormal . LVOT diam (test 2.2 cm code = 7075959462) LVOT area (test 3.80 cm2 code = 8210192999) LV mass (linear 192.2 g 67-162 method) (test code = 1781275313) LVMI (2D) (test 103.3 g/m2 44-88 code = 8328713651) MV E zev (test 83.06 cm/s code = 8340069495) MV A zev (test 84.36 cm/s code = 6159905428) MV E/A ratio (test 1.0 code = 9682431491) E/e' average (test 9.0 <14 code = 5621081690) LVOT peak zev 1.25 m/s (test code = 7429429611) LVOT mean grad 2.5 mmHg (test code = 1654789661) LVOT pk grad rest 6 mmHg (test code = 0320082691) LA AP dimension 3.2 cm <3.8 (ES) (test code = 0496821138) LA/Ao ratio (test 0.073222650332856 code = 3128772764) LVOT peak grad 6.2 mmHg (test code = 9959176665) LVOT VTI (test 23.4 cm code = 6477379739) LVOT SV index 46.8 mL/m2 (test code = 3294864268) LV RWT 2D (test 46.939708284722492 code = 9571601158) LV mass size 1 192.2 cm (test code = 6908193627) LVPWd (test code = 10.9 cm 0.6-0.9 5499380908) IVSd 2D (test code 11.425924943792803 = 2977216) cm Sinuses of 3.1 cm 3.6-3.6 Valsalva (test code = 0507903725) Sinus of Valsalva 31.14 cm (test code = 8680033309) RVOT VTI (test 20.5 cm code = 3249634536) TAPSE (test code = 2.9 cm See_Comment [Automat ed 0217543939) message] The system which generated this result transmitted reference range : >=1.7. The reference range was not used to interpret this result as normal/abnormal . IRIS (2D biplane) 15.529 mL/m2 9-33 (test code = 0996118528) PV mean grad (test 2.1 mmHg code = 0317889255) PV peak zev (test 95.92 cm/s code = 8939002780) PV peak grad (test 3.7 mmHg code = 4093496739) PV VTI (test code 21.743470132035594 = 0920363) cm RVOT mn grad (test 1.525344592925272 mmHg code = 1434679834) RVOT pk grad (test 3.2 mmHg code = 6456815187) PV mean zev (test 0.07 cm/s code = 9521856003) RVOT pk zev (test 0.90 mm/s code = 0278519666) DT3OHUHEUJ (test 15.5 PM5XWAKJDK code = 9219892728) AV EROA cont eq 2.96 cm2 (test code = 8715052048) AV peak zev (test 1.47 m/s code = 1996505321) AV peak grad (test 8.6 mmHg code = 3817603828) AV mean grad (test 4.1 mmHg code = 3353034309) AV mean zev (test 0.9 m/sec code = 4520611397) AV VTI (test code 29.4 cm = 7076747469) RAUL VTI index 1.59 cm2/m2 (test code = 8027366962) RAUL VTI (test code 2.96 cm2 = 6735778846) RAUL peak zev (test 3.16 cm2 code = 1945827406) AV Doppler zev 0.85 index pk zev (test code = 5540133699) AV Doppler zev 0.80 index VTI (test code = 7556783060) AV zev ratio (test 0.85 AVRATIO code = 0432215447) A2CEF (test code = 66.7 % 9210005229) LV ESV index A2C 15.76 ml/m2 (test code = 9722745910) LV ESV A2C (test 29.32 mL code = 2036943365) LV EDV index A2C 47.33 ml/m2 (test code = 5738346612) Radiology Study observation (narrative) (test code = 89526-4) DANIELA (test code = DANIELA) Left Ventricle: [...] 1.00The left ventricular wall motion is normal. [facility]:1012 LEAD E[facility] FOR [facility] Test Date: 9846-97-39Fcx Name: ROSIO MERCADO Department: 5520Patient ID: [id number] Room: Gender: F Advertising Campaign Manager: [id number]: 1970 Requested By: NATALI SIDDIQUI Order Number: [id number] Reading MD: Lenny Farooq MeasurementsIntervals Rocky Rate: 70 P: 61PR: 139 QRS: -28QRSD: 101 T: 45QT: 396 QTc: 416 Interpretive StatementsSINUS RHYTHMBORDERLINE LEFT AXIS DEVIATION [QRS AXIS < -20]VOLTAGE CRITERIA FOR LVH [MEETS CRITERIA IN ONE OF: R(aVL), S(V1), R(V5),R(V5/V6)+S(V1)]Electronically Signed On 02-04-2022 14:37:10 [facility] CenterBpezdsKGT5607-21-60 15:41:1012 LEAD EKG FOR [facility] Test Date: 7010-79-86Zpm Name: ROSIO ZAPATAVER Department: 5520Patient ID: [id number] Room: Gender: F Advertising Campaign Manager: [id number]: 1970 Requested By: NATALI SIDDIQUI Order Number: [id number] Reading MD: Lenny Farooq MeasurementsIntervals Rocky Rate: 70 P: 61PR: 139 QRS: -28QRSD: 101 T: 45QT: 396 QTc: 416 Interpretive StatementsSINUS RHYTHMBORDERLINE LEFT AXIS DEVIATION [QRS AXIS < -20]VOLTAGE CRITERIA FOR LVH [MEETS CRITERIA IN ONE OF: R(aVL), S(V1), R(V5),R(V5/V6)+S(V1)]Electronically Signed On 02-04-2022 14:37:[address] [facility] [place] [id number] 15:41:1012 LEAD EKG FOR [facility] Test Date: 1588-28-18Qvg Name: ROSIO [place] Department: 5520Patient ID: [id number] Room: Gender: F Advertising Campaign Manager: [id number]: 1970 Requested By: JOE Order Number: [id number] Reading MD: Lenny Farooq MeasurementsIntervals Rocky Rate: 70 P: 61PR: 139 QRS: -28QRSD: 101 T: 45QT: 396 QTc: 416 Interpretive StatementsSINUS RHYTHMBORDERLINE LEFT AXIS DEVIATION [QRS AXIS < -20]VOLTAGE CRITERIA FOR LVH [MEETS CRITERIA IN ONE OF: R(aVL), S(V1), R(V5),R(V5/V6)+S(V1)]Electronically Signed On 02-04-2022 14:37:[address] [facility] [place] [id number] 15:41:1012 LEAD EKG FOR [facility] Test Date: 3543-89-17Swr Name: ROSIO ZAPATAVER Department: 5520Patient ID: [id number] Room: Gender: F Advertising Campaign Manager: [id number]: 1970 Requested By: NATALI SIDDIQUI Order Number: [id number] Reading MD: Lenny Farooq MeasurementsIntervals Rocky Rate: 70 P: 61PR: 139 QRS: -28QRSD: 101 T: 45QT: 396 QTc: 416 Interpretive StatementsSINUS RHYTHMBORDERLINE LEFT AXIS DEVIATION [QRS AXIS < -20]VOLTAGE CRITERIA FOR LVH [MEETS CRITERIA IN ONE OF: R(aVL), S(V1), R(V5),R(V5/V6)+S(V1)]Electronically Signed On 02-04-2022 14:37:10 CDT by Lenny [place] [id number] 15:41:1012 LEAD EKG FOR [facility] Test Date: 5202-63-68Bmi Name: [facility] Department: 5520Patient ID: [id number] Room: Gender: F Advertising Campaign Manager: [id number]: 1970 Requested By: NATALI SIDDIQUI Order Number: [id number] Reading MD: Lenny Farooq MeasurementsIntervals Rocky Rate: 70 P: 61PR: 139 QRS: -28QRSD: 101 T: 45QT: 396 QTc: 416 Interpretive StatementsSINUS RHYTHMBORDERLINE LEFT AXIS DEVIATION [QRS AXIS < -20]VOLTAGE CRITERIA FOR LVH [MEETS CRITERIA IN ONE OF: R(aVL), S(V1), R(V5),R(V5/V6)+S(V1)]Electronically Signed On 02-04-2022 14:37:10 CDT by Lenny XueersirandolphAnimal InnovationsAlbertoMadison [place] [id number] 15:41:1012 LEAD EKG FOR [facility] Test Date: 2117-17-73Bwy Name: [facility] Department: 5520Patient ID: [id number] Room: Gender: F Advertising Campaign Manager: [id number]: 1970 Requested By: NATALI SIDDIQUI Order Number: [id number] Reading MD: Lenny Farooq MeasurementsIntervals Rocky Rate: 70 P: 61PR: 139 QRS: -28QRSD: 101 T: 45QT: 396 QTc: 416 Interpretive StatementsSINUS RHYTHMBORDERLINE LEFT AXIS DEVIATION [QRS AXIS < -20]VOLTAGE CRITERIA FOR LVH [MEETS CRITERIA IN ONE OF: R(aVL), S(V1), R(V5),R(V5/V6)+S(V1)]Electronically Signed On 02-04-2022 14:37:10 CDT by Lenny [facility]esVirgin[facility] SystemCT GLUCOSE POC docked wczgkg5240-57-95 09:32:13 Test Item Value Reference Range Interpretation Comments Glucose POC (test code = 468 mg/dL 74-106 HH >40 0 mg/dL 21038179) Physician Notif ied Lab Interpretation (test Abnormal code = 62967-7) [facility] GLUCOSE POC docked [id number] 09:32:13 Test Item Value Reference Range Interpretation Comments Glucose POC (test code = 468 mg/dL 74-106 HH >40 0 mg/dL 61656920) Physician Notif ied Lab Interpretation (test Abnormal code = 06302-8) [facility] GLUCOSE POC docked wrqgej1647-92-32 09:32:13 Test Item Value Reference Range Interpretation Comments Glucose POC (test code = 468 mg/dL 74-106 HH >40 0 mg/dL 87799768) Physician Notif ied Lab Interpretation (test Abnormal code = 02185-6) [facility] GLUCOSE POC docked [id number] 09:32:13 Test Item Value Reference Range Interpretation Comments Glucose POC (test code = 468 mg/dL 74-106 HH >40 0 mg/dL 15965141) Physician Notif ied Lab Interpretation (test Abnormal code = 41487-9) [facility] GLUCOSE POC docked [id number] 09:32:13 Test Item Value Reference Range Interpretation Comments Glucose POC (test code = 468 mg/dL 74-106 HH >40 0 mg/dL 06485525) Physician Notif ied Lab Interpretation (test Abnormal code = 27467-5) [facility] GLUCOSE POC docked [id number] 09:32:13 Test Item Value Reference Range Interpretation Comments Glucose POC (test code = 468 mg/dL 74-106 HH >40 0 mg/dL 62228275) Physician Notif ied Lab Interpretation (test Abnormal code = 53338-5) [facility] URINE DIPSTICK, WITHOUT [id number] 00:00:00 Test Item Value Reference Range Interpretation Comments Color POC (test code = Yellow See_Comment [Aut omated message] 46882) The system Marakana generated this result transmit tricia reference range : - - -. The referenc e range was not u sed to interpret th is result as normal/abnormal . Clarity POC (test code Clear See_Comment [Aut omated message] = 05534) The system Marakana generated this result transmit tricia reference range : - - -. The referenc e range was not u sed to interpret th is result as normal/abnormal . Glucose POC (test code 3+ Negative - Negative = 47871) Bilirubin POC (test Negative Negative - Negative code = 31820) Ketone POC (test code Negative Negative - Negative = 01136) [place] POC (test 1.015 1.005-1.030 code = 8156) Blood POC (test code = Trace Negative - Negative 47628) pH POC (test code = 6.0 5.0-7.0 43553) Protein POC (test code Negative Negative - Negative = 61604) Urobilinogen POC (test <1.0 0.2-1.0 code = 44565) Nitrate POC (test code Negative Negative - Negative = 50470) Leukocyte POC (test Negative Negative - Negative code = 70576) [facility] RAPID [id number] 00:00:00 Test Item Value Reference Range Interpretation Comments Rapid HIV Result (test code = 95075) Negative Rapid HIV Control (test code = Pass 78912) [facility] URINE DIPSTICK, WITHOUT [id number] 00:00:00 Test Item Value Reference Range Interpretation Comments Color POC (test code = Yellow See_Comment [Aut omated message] 54880) The system Marakana generated this result transmit tricia reference range : - - -. The referenc e range was not u sed to interpret th is result as normal/abnormal . Clarity POC (test code Clear See_Comment [Aut omated message] = 06548) The system Marakana generated this result transmit tricia reference range : - - -. The referenc e range was not u sed to interpret th is result as normal/abnormal . Glucose POC (test code 3+ Negative - Negative = 37672) Bilirubin POC (test Negative Negative - Negative code = 96789) Ketone POC (test code Negative Negative - Negative = 32959) [place] POC (test 1.015 1.005-1.030 code = 8156) Blood POC (test code = Trace Negative - Negative 96802) pH POC (test code = 6.0 5.0-7.0 47101) Protein POC (test code Negative Negative - Negative = 96038) Urobilinogen POC (test <1.0 0.2-1.0 code = 22312) Nitrate POC (test code Negative Negative - Negative = 42150) Leukocyte POC (test Negative Negative - Negative code = 60176) [facility] RAPID [id number] 00:00:00 Test Item Value Reference Range Interpretation Comments Rapid HIV Result (test code = 67242) Negative Rapid HIV Control (test code = Pass 89643) [facility] URINE DIPSTICK, WITHOUT [id number] 00:00:00 Test Item Value Reference Range Interpretation Comments Color POC (test code = Yellow See_Comment [Aut omated message] 13973) The system Marakana generated this result transmit tricia reference range : - - -. The referenc e range was not u sed to interpret th is result as normal/abnormal . Clarity POC (test code Clear See_Comment [Aut omated message] = 56651) The system Marakana generated this result transmit tricia reference range : - - -. The referenc e range was not u sed to interpret th is result as normal/abnormal . Glucose POC (test code 3+ Negative - Negative = 12978) Bilirubin POC (test Negative Negative - Negative code = 71491) Ketone POC (test code Negative Negative - Negative = 83247) [place] POC (test 1.015 1.005-1.030 code = 8156) Blood POC (test code = Trace Negative - Negative 69996) pH POC (test code = 6.0 5.0-7.0 55595) Protein POC (test code Negative Negative - Negative = 70037) Urobilinogen POC (test <1.0 0.2-1.0 code = 93592) Nitrate POC (test code Negative Negative - Negative = 82738) Leukocyte POC (test Negative Negative - Negative code = 83784) [facility] RAPID [id number] 00:00:00 Test Item Value Reference Range Interpretation Comments Rapid HIV Result (test code = 82756) Negative Rapid HIV Control (test code = Pass 72006) [facility] URINE DIPSTICK, WITHOUT [id number] 00:00:00 Test Item Value Reference Range Interpretation Comments Color POC (test code = Yellow See_Comment [Aut omated message] 08780) The system Marakana generated this result transmit tricia reference range : - - -. The referenc e range was not u sed to interpret th is result as normal/abnormal . Clarity POC (test code Clear See_Comment [Aut omated message] = 72621) The system Marakana generated this result transmit tricia reference range : - - -. The referenc e range was not u sed to interpret th is result as normal/abnormal . Glucose POC (test code 3+ Negative - Negative = 68098) Bilirubin POC (test Negative Negative - Negative code = 63102) Ketone POC (test code Negative Negative - Negative = 98961) [place] POC (test 1.015 1.005-1.030 code = 8156) Blood POC (test code = Trace Negative - Negative 16609) pH POC (test code = 6.0 5.0-7.0 27491) Protein POC (test code Negative Negative - Negative = 85147) Urobilinogen POC (test <1.0 0.2-1.0 code = 95411) Nitrate POC (test code Negative Negative - Negative = 54660) Leukocyte POC (test Negative Negative - Negative code = 37484) [facility] RAPID [id number] 00:00:00 Test Item Value Reference Range Interpretation Comments Rapid HIV Result (test code = 01825) Negative Rapid HIV Control (test code = Pass 12584) [facility] URINE DIPSTICK, WITHOUT [id number] 00:00:00 Test Item Value Reference Range Interpretation Comments Color POC (test code = Yellow See_Comment [Aut omated message] 49209) The system Marakana generated this result transmit tricia reference range : - - -. The referenc e range was not u sed to interpret th is result as normal/abnormal . Clarity POC (test code Clear See_Comment [Aut omated message] = 84325) The system Marakana generated this result transmit tricia reference range : - - -. The referenc e range was not u sed to interpret th is result as normal/abnormal . Glucose POC (test code 3+ Negative - Negative = 28473) Bilirubin POC (test Negative Negative - Negative code = 48762) Ketone POC (test code Negative Negative - Negative = 36504) [place] POC (test 1.015 1.005-1.030 code = 8156) Blood POC (test code = Trace Negative - Negative 70708) pH POC (test code = 6.0 5.0-7.0 95526) Protein POC (test code Negative Negative - Negative = 62570) Urobilinogen POC (test <1.0 0.2-1.0 code = 57624) Nitrate POC (test code Negative Negative - Negative = 38558) Leukocyte POC (test Negative Negative - Negative code = 57043) [facility] RAPID [id number] 00:00:00 Test Item Value Reference Range Interpretation Comments Rapid HIV Result (test code = 89730) Negative Rapid HIV Control (test code = Pass 15139) [facility] URINE DIPSTICK, WITHOUT [id number] 00:00:00 Test Item Value Reference Range Interpretation Comments Color POC (test code = Yellow See_Comment [Aut omated message] 97861) The system Marakana generated this result transmit tricia reference range : - - -. The referenc e range was not u sed to interpret th is result as normal/abnormal . Clarity POC (test code Clear See_Comment [Aut omated message] = 01969) The system Marakana generated this result transmit tricia reference range : - - -. The referenc e range was not u sed to interpret th is result as normal/abnormal . Glucose POC (test code 3+ Negative - Negative = 13384) Bilirubin POC (test Negative Negative - Negative code = 28399) Ketone POC (test code Negative Negative - Negative = 33999) [place] POC (test 1.015 1.005-1.030 code = 8156) Blood POC (test code = Trace Negative - Negative 40965) pH POC (test code = 6.0 5.0-7.0 19023) Protein POC (test code Negative Negative - Negative = 15007) Urobilinogen POC (test <1.0 0.2-1.0 code = 87666) Nitrate POC (test code Negative Negative - Negative = 27819) Leukocyte POC (test Negative Negative - Negative code = 33196) [facility] RAPID [id number] 00:00:00 Test Item Value Reference Range Interpretation Comments Rapid HIV Result (test code = 29274) Negative Rapid HIV Control (test code = Pass 58784) [facility], as % of total [id number] 14:57:00 Test Item Value Reference Range Interpretation Comments hemoglobin A1C, blood, as % of total 10.9 % 4.8-5.6 H hemoglobin (test code = 4548-4) [facility] [id number] 14:57:00 Test Item Value Reference Range Interpretation Comments LDL cholesterol, serum (test TRIGHI mg/dL 0-99 code = 9-1) [facility]very low density njwsvblefckw9935-08-48 14:57:00 Test Item Value Reference Range Interpretation Comments very low density lipoproteins VLDLCH mg/dL 5-40 (test code = 1-7) [facility]HDL [facility], [id number] 14:57:00 Test Item Value Reference Range Interpretation Comments HDL cholesterol, serum (test code = 55 mg/dL >39 5-9) [facility], serum, [id number] 14:57:00 Test Item Value Reference Range Interpretation Comments triglyceride, serum, fasting (test 527 mg/dL 0-149 H code = 2571-8) [facility] Centercholesterol, [id number] 14:57:00 Test Item Value Reference Range Interpretation Comments cholesterol, serum (test code = 261 mg/dL 100-199 H 3-3) [facility] Centeralanine aminotransferase (SGPT), [id number] 14:57:00 Test Item Value Reference Range Interpretation Comments alanine aminotransferase (SGPT), serum 25 1/L 0-32 (test code = 1742-6) [facility] Centeraspartate aminotransferase (SGOT), [id number] 14:57:00 Test Item Value Reference Range Interpretation Comments aspartate aminotransferase (SGOT), 19 1/L 0-40 serum (test code = 1920-8) [facility] Centeralkaline phosphatase, [id number] 14:57:00 Test Item Value Reference Range Interpretation Comments alkaline phosphatase, serum (test code 99 1/L 39-117 = 1783-0) [facility]bilirubin, serum, [id number] 14:57:00 Test Item Value Reference Range Interpretation Comments bilirubin, serum, total (test code 0.3 mg/dL 0.0-1.2 = 1975-2) [facility] Healthalbumin/globulin ratio, [id number] 14:57:00 Test Item Value Reference Range Interpretation Comments albumin/globulin ratio, serum (test 1.7 1.2-2.2 code = 1759-0) [facility] Healthglobulin, [id number] 14:57:00 Test Item Value Reference Range Interpretation Comments globulin, serum (test code = 2336-6) 2.7 1.5-4.5 [facility] Healthalbumin, [id number] 14:57:00 Test Item Value Reference Range Interpretation Comments albumin, serum (test code = 1751-7) 4.5 g/dL 3.5-5.5 [facility] Healthprotein, total, [id number] 14:57:00 Test Item Value Reference Range Interpretation Comments protein, total, serum (test code = 7.2 g/dL 6.0-8.5 2885-2) [facility] Healthcalcium, [id number] 14:57:00 Test Item Value Reference Range Interpretation Comments calcium, serum (test code = 10.8 mg/dL 8.7-10.2 H 1999-) [facility]ercarbon dioxide, venous [id number] 14:57:00 Test Item Value Reference Range Interpretation Comments carbon dioxide, venous blood (test 24 mmol/L 20-29 code = 2026-1) [facility] Healthchloride, [id number] 14:57:00 Test Item Value Reference Range Interpretation Comments chloride, serum (test code = 91 mmol/L 96-106 L 2074-0) [facility] Healthpotassium, [id number] 14:57:00 Test Item Value Reference Range Interpretation Comments potassium, serum (test code = 4.9 mmol/L 3.5-5.2 2823-3) [facility] Centersodium, [id number] 14:57:00 Test Item Value Reference Range Interpretation Comments sodium, serum (test code = 2951-2) 131 mmol/L 134-144 L [facility] nitrogen/creatinine ratio, [id number] 14:57:00 Test Item Value Reference Range Interpretation Comments urea nitrogen/creatinine ratio, serum 13 9-23 (test code = 3097-3) [facility] HealtheGFR if Kbjdlkjp8196-78-73 14:57:00 Test Item Value Reference Range Interpretation Comments eGFR if 90 >59 (test code = 79996-5) mL/min/((173/100).m2) [facility] CenterEstimated Glomerular Filtration Rate (calc)2018-07-04 14:57:00 Test Item Value Reference Range Interpretation Comments Estimated Glomerular 78 >59 Filtration Rate (calc) mL/min/((173/100).m2 (test code = 98059-6) ) [facility] Centercreatinine, [id number] 14:57:00 Test Item Value Reference Range Interpretation Comments creatinine, serum (test code = 0.88 mg/dL 0.57-1.00 2160-0) [facility] Centerurea nitrogen, [id number] 14:57:00 Test Item Value Reference Range Interpretation Comments urea nitrogen, blood (test code = 11 mg/dL 6-24 3094-0) [facility] Centerblood glucose, [id number] 14:57:00 Test Item Value Reference Range Interpretation Comments blood glucose, random (test code = 520 mg/dL 65-99 2339-0) [facility] Centerimmature granulocytes, percentage of total cells, blood 2018-07-04 14:57:00 Test Item Value Reference Range Interpretation Comments immature granulocytes, percentage of 0 % total cells, blood (test code = 92750-1) [facility] Centerbasophil count, jdgpdpml0787-04-96 14:57:00 Test Item Value Reference Range Interpretation Comments basophil count, absolute (test 0.1 x10E3/uL 0.0-0.2 code = 66506-1) [facility] CenterEosinophil Absolute Uhfgk6770-23-04 14:57:00 Test Item Value Reference Range Interpretation Comments Eosinophil Absolute Count (test 0.3 X10E3/UL 0.0-0.4 code = 08702-1) [facility] Centermonocyte count, blood, guovdloox1259-65-83 14:57:00 Test Item Value Reference Range Interpretation Comments monocyte count, blood, automated 0.6 X10E3/UL 0.1-0.9 (test code = 742-7) [facility] Centerlymphocyte count, blood, zrwoafvbh3335-20-36 14:57:00 Test Item Value Reference Range Interpretation Comments lymphocyte count, blood, 3.4 X10E3/UL 0.7-3.1 H automated (test code = 731-0) [facility] CenterAbsolute Fvtczwowupj4447-11-39 14:57:00 Test Item Value Reference Range Interpretation Comments Absolute Neutrophils (test code 7.5 X10E3/UL 1.4-7.0 H = 73983-4) [facility] Centerbasophils as percent of blood ymoqslaeqo5743-63-98 14:57:00 Test Item Value Reference Range Interpretation Comments basophils as percent of blood 1 % leukocytes (test code = 707-0) [facility] Centereosinophils as percent of blood hvyyonbdmy0939-13-18 14:57:00 Test Item Value Reference Range Interpretation Comments eosinophils as percent of blood 3 % leukocytes (test code = 713-8) [facility] Healthmonocytes as percent of blood nbooouthay8458-67-61 14:57:00 Test Item Value Reference Range Interpretation Comments monocytes as percent of blood 5 % leukocytes (test code = 5905-5) [facility] Centerlymphocytes as percent of blood zmfnfzcniw1983-08-15 14:57:00 Test Item Value Reference Range Interpretation Comments lymphocytes as percent of blood 28 % leukocytes (test code = 736-9) [facility] Centerneutrophils as percent of blood dtpmpmmgqp2258-97-30 14:57:00 Test Item Value Reference Range Interpretation Comments neutrophils as percent of blood 63 % leukocytes (test code = 770-8) [facility] btswd1045-07-29 14:57:00 Test Item Value Reference Range Interpretation Comments platelet count (test code = 410 X10E3/UL 150-379 H 777-3) [facility]red blood cell distribution [id number] 14:57:00 Test Item Value Reference Range Interpretation Comments red blood cell distribution width 14.7 % 12.3-15.4 (test code = 788-0) [facility]ermean corpuscular hemoglobin concentration, [id number] 14:57:00 Test Item Value Reference Range Interpretation Comments mean corpuscular hemoglobin 33.0 G/DL 31.5-35.7 concentration, RBC (test code = 786-4) [facility]ermean corpuscular hemoglobin, [id number] 14:57:00 Test Item Value Reference Range Interpretation Comments mean corpuscular hemoglobin, RBC 29.1 pg 26.6-33.0 (test code = 785-6) [facility], [id number] 14:57:00 Test Item Value Reference Range Interpretation Comments mean corpuscular volume, RBC (test code 88 fL 79-97 = 787-2) [facility]hematocrit, [id number] 14:57:00 Test Item Value Reference Range Interpretation Comments hematocrit, blood (test code = 4544-3) 41.2 % 34.0-46.6 [facility]hemoglobin, [id number] 14:57:00 Test Item Value Reference Range Interpretation Comments hemoglobin, blood (test code = 13.6 g/dL 11.1-15.9 718-7) [facility] Centererythrocyte (RBC) [id number] 14:57:00 Test Item Value Reference Range Interpretation Comments erythrocyte (RBC) count (test 4.67 X10E6/UL 3.77-5.28 code = 789-8) [facility] Centerleukocyte count, [id number] 14:57:00 Test Item Value Reference Range Interpretation Comments leukocyte count, blood (test 11.9 X10E3/UL 3.4-10.8 H code = 6690-2) [facility] CenterNeisseria gonorrhoeae DNA [id number] 16:44:00 Test Item Value Reference Range Interpretation Comments Neisseria gonorrhoeae DNA probe NOT DETECTED NOT DETECTED N (test code = 33930-0) [facility]chlamydia DNA [id number] 16:44:00 Test Item Value Reference Range Interpretation Comments chlamydia DNA probe (test code = NOT DETECTED NOT DETECTED N 82388-3) [facility] Centerrapid plasma reagin antibody, [id number] 13:17:00 Test Item Value Reference Range Interpretation Comments rapid plasma reagin antibody, NON-REACTIVE NON-REACTIVE N serum (test code = 5291-0) [facility] Centerhemoglobin A1C, blood, as % of total brmpqxymwr5230-08-57 13:17:00 Test Item Value Reference Range Interpretation Comments hemoglobin A1C, blood, as 8.7 % OF TOTAL HGB <5.7 H % of total hemoglobin (test code = 4548-4) [facility] HealthTSH (thyroid stimulating hormone) with reflex FT4 2017-07-30 13:17:00 Test Item Value Reference Range Interpretation Comments TSH (thyroid stimulating hormone) 1.30 mIU/L N with reflex FT4 (test code = 79305) [facility] CenterHepatitis C Antibody, Signal to Tck-Llt3398-39-02 13:17:00 Test Item Value Reference Range Interpretation Comments Hepatitis C Antibody, Signal to Cut-Off 0.01 <1.00 N (test code = 660044) [facility] Centerhepatitis C antibody, issce7972-14-95 13:17:00 Test Item Value Reference Range Interpretation Comments hepatitis C antibody, serum NON-REACTIVE NON-REACTIVE N (test code = 5199-5) [facility] Healthbasophils as percent of blood txjclwprkm6465-51-12 13:17:00 Test Item Value Reference Range Interpretation Comments basophils as percent of blood 0.9 % N leukocytes (test code = 707-0) [facility]ereosinophils as percent of blood ijgzbpspux4060-80-37 13:17:00 Test Item Value Reference Range Interpretation Comments eosinophils as percent of blood 3.1 % N leukocytes (test code = 714-6) [facility] Healthmonocytes as percent of blood fnyaukfjkl9481-29-24 13:17:00 Test Item Value Reference Range Interpretation Comments monocytes as percent of blood 5.5 % N leukocytes (test code = 5905-5) [facility]lymphocytes as percent of blood gzstwlnnuo1881-55-44 13:17:00 Test Item Value Reference Range Interpretation Comments lymphocytes as percent of blood 23.6 % N leukocytes (test code = 736-9) [facility] Centerneutrophils as percent of blood mwkgvjkslj7925-74-48 13:17:00 Test Item Value Reference Range Interpretation Comments neutrophils as percent of blood 66.9 % N leukocytes (test code = 770-8) [facility] Centerbasophil count, tkxptrpz2815-57-78 13:17:00 Test Item Value Reference Range Interpretation Comments basophil count, absolute (test 115 cells/uL 0-200 N code = 15252-6) [facility] CenterAbsolute Eosinophil [id number] 13:17:00 Test Item Value Reference Range Interpretation Comments Absolute Eosinophil count (test 397 cells/mcL 15-500 N code = 18685-3) [facility] CenterAbsolute Monocyte [id number] 13:17:00 Test Item Value Reference Range Interpretation Comments Absolute Monocyte count (test 704 cells/mcL 200-950 N code = 90779-7) [facility] Centerlymphocytes, wsvemiql4833-62-38 13:17:00 Test Item Value Reference Range Interpretation Comments lymphocytes, absolute (test 3021 CELLS/UL 850-3900 N code = 55990-8) [facility] uwair3415-02-70 13:17:00 Test Item Value Reference Range Interpretation Comments Absolute Neutrophil count 8563 cells/mcL 0222-8414 H (test code = 58341-0) [facility] platelet msmmqq5099-57-15 13:17:00 Test Item Value Reference Range Interpretation Comments mean platelet volume (test code = 10.3 fL 7.5-12.5 N 776-5) [facility]platelet gwwhm6594-00-48 13:17:00 Test Item Value Reference Range Interpretation Comments platelet count (test code = 445 THOUSAND/UL 140-400 H 777-3) [facility]red blood cell distribution vljrz5502-54-85 13:17:00 Test Item Value Reference Range Interpretation Comments red blood cell distribution width 15.5 % 11.0-15.0 H (test code = 788-0) [facility] corpuscular hemoglobin concentration, [id number] 13:17:00 Test Item Value Reference Range Interpretation Comments mean corpuscular hemoglobin 32.1 G/DL 32.0-36.0 N concentration, RBC (test code = 786-4) [facility] corpuscular hemoglobin, [id number] 13:17:00 Test Item Value Reference Range Interpretation Comments mean corpuscular hemoglobin, RBC 25.3 pg 27.0-33.0 L (test code = 785-6) [facility]ermean corpuscular volume, [id number] 13:17:00 Test Item Value Reference Range Interpretation Comments mean corpuscular volume, RBC (test 78.7 fL 80.0-100.0 L code = 787-2) [facility] Centerhematocrit, [id number] 13:17:00 Test Item Value Reference Range Interpretation Comments hematocrit, blood (test code = 4544-3) 35.8 % 35.0-45.0 N [facility] Centerhemoglobin, [id number] 13:17:00 Test Item Value Reference Range Interpretation Comments hemoglobin, blood (test code = 11.5 g/dL 11.7-15.5 L 718-7) [facility] Centererythrocyte (RBC) kijve5171-07-18 13:17:00 Test Item Value Reference Range Interpretation Comments erythrocyte (RBC) count (test 4.55 MILLION/UL 3.80-5.10 N code = 789-8) [facility] Centerleukocyte count, [id number] 13:17:00 Test Item Value Reference Range Interpretation Comments leukocyte count, blood (test 12.8 THOUSAND/UL 3.8-10.8 H code = 6690-2) [facility] Centeralanine aminotransferase (SGPT), kyhnv9976-66-04 13:17:00 Test Item Value Reference Range Interpretation Comments alanine aminotransferase (SGPT), serum 16 1/L 6-29 N (test code = 1742-6) [facility] Centeraspartate aminotransferase (SGOT), qbeve1262-76-39 13:17:00 Test Item Value Reference Range Interpretation Comments aspartate aminotransferase (SGOT), 14 1/L 10-35 N serum (test code = 1920-8) [facility] Centeralkaline phosphatase, [id number] 13:17:00 Test Item Value Reference Range Interpretation Comments alkaline phosphatase, serum (test code 72 1/L 33-115 N = 1783-0) [facility] Centerbilirubin, serum, [id number] 13:17:00 Test Item Value Reference Range Interpretation Comments bilirubin, serum, total (test code 0.2 mg/dL 0.2-1.2 N = 1975-2) [facility] Healthalbumin/globulin ratio, [id number] 13:17:00 Test Item Value Reference Range Interpretation Comments albumin/globulin ratio, serum 1.4 (calc) 1.0-2.5 N (test code = 1759-0) [facility] Centerglobulins, serum, mlnvs4827-87-56 13:17:00 Test Item Value Reference Range Interpretation Comments globulins, serum, total (test 2.9 G/DL (CALC) 1.9-3.7 N code = 2336-6) [facility] Healthalbumin, [id number] 13:17:00 Test Item Value Reference Range Interpretation Comments albumin, serum (test code = 1751-7) 4.0 g/dL 3.6-5.1 N [facility] Centerprotein, total, [id number] 13:17:00 Test Item Value Reference Range Interpretation Comments protein, total, serum (test code = 6.9 g/dL 6.1-8.1 N 2885-2) [facility] Centercalcium, [id number] 13:17:00 Test Item Value Reference Range Interpretation Comments calcium, serum (test code = 1999-8) 9.8 mg/dL 8.6-10.2 N [facility] Centercarbon dioxide, venous cgobt1581-50-94 13:17:00 Test Item Value Reference Range Interpretation Comments carbon dioxide, venous blood (test 22 mmol/L 20-31 N code = 2026-1) [facility] Centerchloride, [id number] 13:17:00 Test Item Value Reference Range Interpretation Comments chloride, serum (test code = 103 mmol/L 98-110 N 5-0) [facility] Centerpotassium, klzuo1399-47-67 13:17:00 Test Item Value Reference Range Interpretation Comments potassium, serum (test code = 4.6 mmol/L 3.5-5.3 N 2823-3) [facility] Centersodium, ibjrb1339-40-05 13:17:00 Test Item Value Reference Range Interpretation Comments sodium, serum (test code = 2951-2) 135 mmol/L 135-146 N [facility] Centerurea nitrogen/creatinine ratio, [id number] 13:17:00 Test Item Value Reference Range Interpretation Comments urea NOT APPLICABLE (calc) 6-22 nitrogen/creatinine ratio, serum (test code = 3097-3) [facility] CentereGFR if Dqmzrixw7708-55-02 13:17:00 Test Item Value Reference Range Interpretation Comments eGFR if 120 > OR = 60 N (test code = 75877-0) mL/min/((173/100).m2) [facility] CenterEstimated Glomerular Filtration Rate (calc)2017-07-30 13:17:00 Test Item Value Reference Range Interpretation Comments Estimated Glomerular 104 > OR = 60 N Filtration Rate (calc) mL/min/((173/100).m2 (test code = 23569-0) ) [facility] Centercreatinine, [id number] 13:17:00 Test Item Value Reference Range Interpretation Comments creatinine, serum (test code = 0.69 mg/dL 0.50-1.10 N 2160-0) [facility] Centerurea nitrogen, layux0886-30-96 13:17:00 Test Item Value Reference Range Interpretation Comments urea nitrogen, blood (test code = 10 mg/dL 7-25 N 3094-0) [facility] Centerblood glucose, srznlz2176-23-10 13:17:00 Test Item Value Reference Range Interpretation Comments blood glucose, random (test code = 180 mg/dL 65-99 H 2339-0) [facility] CenterHIV-CMIA (Chemiluminescent Microparticle Immuno Assay) 2017-07-30 13:17:00 Test Item Value Reference Range Interpretation Comments HIV-CMIA (Chemiluminescent NON-REACTIVE NON-REACTIVE N Microparticle Immuno Assay) (test code = 274146) [facility]cholesterol, non-HDL, [id number] 13:17:00 Test Item Value Reference Range Interpretation Comments cholesterol, non-HDL, total 176 MG/DL (CALC) <130 H (test code = 36606) [facility]cholesterol/HDL ratio, serum, kvzushh3958-59-46 13:17:00 Test Item Value Reference Range Interpretation Comments cholesterol/HDL ratio, serum, 4.7 (calc) <5.0 N percent (test code = 2404) [facility] CenterLDL cholesterol, [id number] 13:17:00 Test Item Value Reference Range Interpretation Comments LDL cholesterol, serum (test 133 MG/DL (CALC) H code = 2088-1) [facility] Centertriglyceride, serum, slcosrk1886-29-09 13:17:00 Test Item Value Reference Range Interpretation Comments triglyceride, serum, fasting (test 301 mg/dL <150 H code = 2571-8) [facility] CenterHDL cholesterol, azqeh5993-55-92 13:17:00 Test Item Value Reference Range Interpretation Comments HDL cholesterol, serum (test code = 47 mg/dL >50 L 2085-04) [facility]cholesterol, bkpht0142-79-18 13:17:00 Test Item Value Reference Range Interpretation Comments cholesterol, serum (test code = 223 mg/dL <200 H 2092-10) [facility] Centerthyroid stimulating hormone, hiqwf9504-28-21 09:48:00 Test Item Value Reference Range Interpretation Comments thyroid stimulating hormone, 1.460 u[iU]/mL 0.450-4.500 serum (test code = 3016-3) [facility]hemoglobin A1C, blood, as % of total kzkesxviqx0751-41-50 09:48:00 Test Item Value Reference Range Interpretation Comments hemoglobin A1C, blood, as % of total 9.4 % 4.8-5.6 H hemoglobin (test code = 4548-4) [facility] Centermicroalbumin/creatinine ratio, djdpr7416-26-38 09:48:00 Test Item Value Reference Range Interpretation Comments microalbumin/creatinine 54.1 MG/G CREAT 0.0-30.0 H ratio, urine (test code = 64068-5) [facility] Centermicroalbumin/total urine qcnoys8075-99-33 09:48:00 Test Item Value Reference Range Interpretation Comments microalbumin/total urine volume 15.9 mg/L (test code = 64056-3) [facility]ercreatinine, random, [id number] 09:48:00 Test Item Value Reference Range Interpretation Comments creatinine, random, urine (test 29.4 mg/dL code = 2161-8) [facility] CenterLDL cholesterol, rmvut5370-69-25 09:48:00 Test Item Value Reference Range Interpretation Comments LDL cholesterol, serum (test code = 111 mg/dL 0-99 H 2088-08) [facility] Centervery low density kkmqmbxlfgow0354-20-11 09:48:00 Test Item Value Reference Range Interpretation Comments very low density lipoproteins (test 63 mg/dL 5-40 H code = 2091-7) [facility] CenterHDL cholesterol, [id number] 09:48:00 Test Item Value Reference Range Interpretation Comments HDL cholesterol, serum (test code = 45 mg/dL >39 5-9) [facility]ertriglyceride, serum, snvntqc4530-74-81 09:48:00 Test Item Value Reference Range Interpretation Comments triglyceride, serum, fasting (test 313 mg/dL 0-149 H code = 2571-8) [facility]cholesterol, gmqzi0817-60-63 09:48:00 Test Item Value Reference Range Interpretation Comments cholesterol, serum (test code = 219 mg/dL 100-199 H 2092-3) [facility] Centeralanine aminotransferase (SGPT), jqyhm0743-21-69 09:48:00 Test Item Value Reference Range Interpretation Comments alanine aminotransferase (SGPT), serum 23 1/L 0-32 (test code = 1742-6) [facility] Centeraspartate aminotransferase (SGOT), qugfe7656-65-25 09:48:00 Test Item Value Reference Range Interpretation Comments aspartate aminotransferase (SGOT), 18 1/L 0-40 serum (test code = 1920-8) [facility] Centeralkaline phosphatase, daxrj3160-55-37 09:48:00 Test Item Value Reference Range Interpretation Comments alkaline phosphatase, serum (test code 86 1/L 39-117 = 1783-0) [facility] Centerbilirubin, serum, [id number] 09:48:00 Test Item Value Reference Range Interpretation Comments bilirubin, serum, total (test code <0.2 mg/dL 0.0-1.2 = 1975-2) [facility] Centeralbumin/globulin ratio, cstej6435-51-10 09:48:00 Test Item Value Reference Range Interpretation Comments albumin/globulin ratio, serum (test 1.5 1.1-2.5 code = 1759-0) [facility] Centerglobulin, [id number] 09:48:00 Test Item Value Reference Range Interpretation Comments globulin, serum (test code = 2336-6) 2.9 1.5-4.5 [facility] Centeralbumin, kaxes1994-08-54 09:48:00 Test Item Value Reference Range Interpretation Comments albumin, serum (test code = 1751-7) 4.4 g/dL 3.5-5.5 [facility] Healthprotein, total, jktyl7710-08-70 09:48:00 Test Item Value Reference Range Interpretation Comments protein, total, serum (test code = 7.3 g/dL 6.0-8.5 2885-2) [facility] Centercalcium, [id number] 09:48:00 Test Item Value Reference Range Interpretation Comments calcium, serum (test code = 10.0 mg/dL 8.7-10.2 1999-8) [facility] Centercarbon dioxide, venous eytnx1273-06-66 09:48:00 Test Item Value Reference Range Interpretation Comments carbon dioxide, venous blood (test 19 mmol/L code = 2027-1) [facility] Centerchloride, hiwsl4373-15-42 09:48:00 Test Item Value Reference Range Interpretation Comments chloride, serum (test code = 95 mmol/L 97-106 L 2074-0) [facility] Centerpotassium, zjcbb4923-10-09 09:48:00 Test Item Value Reference Range Interpretation Comments potassium, serum (test code = 4.8 mmol/L 3.5-5.2 2823-3) [facility] Centersodium, pefuq7844-65-16 09:48:00 Test Item Value Reference Range Interpretation Comments sodium, serum (test code = 2951-2) 132 mmol/L 136-144 L [facility] Centerurea nitrogen/creatinine ratio, ljwfr0939-51-14 09:48:00 Test Item Value Reference Range Interpretation Comments urea nitrogen/creatinine ratio, serum 19 9-23 (test code = 3097-3) [facility] HealtheGFR if Loubawcw7084-91-72 09:48:00 Test Item Value Reference Range Interpretation Comments eGFR if 111 >59 (test code = 46343-5) mL/min/((173/100).m2) [facility] CenterEstimated Glomerular Filtration Rate (calc)2016-06-16 09:48:00 Test Item Value Reference Range Interpretation Comments Estimated Glomerular 96 >59 Filtration Rate (calc) mL/min/((173/100).m2 (test code = 61342-5) ) [facility] Centercreatinine, cpkox3349-89-55 09:48:00 Test Item Value Reference Range Interpretation Comments creatinine, serum (test code = 0.75 mg/dL 0.57-1.00 2160-0) [facility] Centerurea nitrogen, udqmw1502-37-97 09:48:00 Test Item Value Reference Range Interpretation Comments urea nitrogen, blood (test code = 14 mg/dL 6-24 3094-0) [facility] Centerblood glucose, rsvmbs0332-06-52 09:48:00 Test Item Value Reference Range Interpretation Comments blood glucose, random (test code = 345 mg/dL 65-99 H 2339-0) [facility] Centerimmature granulocytes, percentage of total cells, blood 2016-06-16 09:48:00 Test Item Value Reference Range Interpretation Comments immature granulocytes, percentage of 0 % total cells, blood (test code = 38892-8) [facility] Centerbasophil count, cdjrqvfa6739-69-30 09:48:00 Test Item Value Reference Range Interpretation Comments basophil count, absolute (test 0.1 x10E3/uL 0.0-0.2 code = 63073-6) [facility] CenterEosinophil Absolute Tscna1080-32-87 09:48:00 Test Item Value Reference Range Interpretation Comments Eosinophil Absolute Count (test 0.4 X10E3/UL 0.0-0.4 code = 97256-9) [facility] Centermonocyte count, blood, jgoygzhsr8391-93-64 09:48:00 Test Item Value Reference Range Interpretation Comments monocyte count, blood, automated 0.5 X10E3/UL 0.1-0.9 (test code = 742-7) [facility] Centerlymphocyte count, blood, imymiprxm4041-07-60 09:48:00 Test Item Value Reference Range Interpretation Comments lymphocyte count, blood, 3.3 X10E3/UL 0.7-3.1 H automated (test code = 731-0) [facility] CenterAbsolute Ufyrmsedzfq9849-93-21 09:48:00 Test Item Value Reference Range Interpretation Comments Absolute Neutrophils (test code 7.2 X10E3/UL 1.4-7.0 H = 56051-3) [facility] Centerbasophils as percent of blood wrfyogxeop4121-63-43 09:48:00 Test Item Value Reference Range Interpretation Comments basophils as percent of blood 1 % leukocytes (test code = 707-0) [facility] Healtheosinophils as percent of blood sqoamzxlfy1833-80-59 09:48:00 Test Item Value Reference Range Interpretation Comments eosinophils as percent of blood 3 % leukocytes (test code = 713-8) [facility] Healthmonocytes as percent of blood iaereieelu2440-65-14 09:48:00 Test Item Value Reference Range Interpretation Comments monocytes as percent of blood 4 % leukocytes (test code = 5905-5) [facility] Healthlymphocytes as percent of blood qnriohilqi8218-74-11 09:48:00 Test Item Value Reference Range Interpretation Comments lymphocytes as percent of blood 29 % leukocytes (test code = 736-9) [facility] Centerneutrophils as percent of blood crtyubavwf7634-46-49 09:48:00 Test Item Value Reference Range Interpretation Comments neutrophils as percent of blood 63 % leukocytes (test code = 770-8) [facility] Centerplatelet hshib7169-52-60 09:48:00 Test Item Value Reference Range Interpretation Comments platelet count (test code = 377 X10E3/UL 150-379 777-3) [facility] Centerred blood cell distribution mkisk7381-79-68 09:48:00 Test Item Value Reference Range Interpretation Comments red blood cell distribution width 14.5 % 12.3-15.4 (test code = 788-0) [facility] corpuscular hemoglobin concentration, [id number] 09:48:00 Test Item Value Reference Range Interpretation Comments mean corpuscular hemoglobin 33.0 G/DL 31.5-35.7 concentration, RBC (test code = 786-4) [facility], [id number] 09:48:00 Test Item Value Reference Range Interpretation Comments mean corpuscular hemoglobin, RBC 29.1 pg 26.6-33.0 (test code = 785-6) [facility] corpuscular volume, YXY0718-77-85 09:48:00 Test Item Value Reference Range Interpretation Comments mean corpuscular volume, RBC (test code 88 fL 79-97 = 787-2) [facility] Centerhematocrit, nhuot0921-10-45 09:48:00 Test Item Value Reference Range Interpretation Comments hematocrit, blood (test code = 4544-3) 41.5 % 34.0-46.6 [facility] Centerhemoglobin, pivbl3884-20-51 09:48:00 Test Item Value Reference Range Interpretation Comments hemoglobin, blood (test code = 13.7 g/dL 11.1-15.9 718-7) [facility] Centererythrocyte (RBC) wruny2488-28-34 09:48:00 Test Item Value Reference Range Interpretation Comments erythrocyte (RBC) count (test 4.70 X10E6/UL 3.77-5.28 code = 789-8) [facility] Centerleukocyte count, oentn0667-00-34 09:48:00 Test Item Value Reference Range Interpretation Comments leukocyte count, blood (test 11.5 X10E3/UL 3.4-10.8 H code = 6690-2) [facility] Centerblood glucose, wkzdkd3148-90-97 08:28:26 Test Item Value Reference Range Interpretation Comments blood glucose, random (test code = 387 mg/dL 2339-0) [facility]
[2022-06-25 06:13] LABS: Hematocrit 27.5 % (36.0-45.0); Lymphocytes % 14.8 % (15.3-44.8); MCV 96.8 fL (80-100); MPV 8.5 fL (7.6-11.3); RBC Red Blood Cell Count 2.84 M/uL (3.86-4.86)
[2022-06-25 06:14] LABS: Absolute Lymphocytes (CBC) 1.7 K/uL (0.7-4.9)
[2022-06-25 06:17] LABS: Protime INR 1.27
[2022-06-25 06:31] LABS: Albumin 2.7 g/dL (3.4-5.0); Potassium 3.9 mmol/L (3.5-5.1); Protein, Total 7.5 g/dL (6.4-8.2)
[2022-06-25 06:34] LABS: Troponin High Sensitivity 13195.9 pg/mL (<58.9)
[2022-06-25] MEDS ORDERED: NA CHLORIDE 0.9% 500 ML ONE (06:55)
--- NOTE | 2022-06-25 07:06 | EDPHYS ---
Physician Documentation [facility] Name: Noy Lang Age: 51 yrs Sex: Female : 1970 Arrival Date: 06/25/2022 Time: 05:40 Bed 4 Private MD: ED Physician Bret Lloyd HPI: 06/25 05:45 This 51 yrs old Female presents to ER via Unassigned with complaints of sob. rn 05:45 The patient has shortness of breath at rest. Onset: The symptoms/episode began/occurred rn last night. Duration: The symptoms are continuous. The patient's shortness of breath is aggravated by exertion, talking, is alleviated by nothing. Associated signs and symptoms: Pertinent positives: This patient does not have any pertinent positive signs or symptoms associated with shortness of breath. Pertinent negatives: chest pain, non-productive cough, productive cough, fever, hemoptysis. Severity of symptoms: At their worst the symptoms were moderate in the emergency department the symptoms are unchanged. The patient has experienced similar episodes in the past. The patient has not recently seen a physician. Pt reports SOB, began last night, no fever, has "cancer all over", and CHF. . MANAGER COMMUNITY RELATIONS: 05:45 LMP N/A - Post-menopause lg3 Historical: - Allergies: 05:45 No Known Allergies; lg3 - Home Meds: 05:45 chemo [Active]; Lasix Oral [Active]; lg3 - PMHx: 05:45 abdominal cancer; Congestive heart failure; coronary atherosclerosis; depressive lg3 disorder; diabetes mellitus; Hypertensive disorder; Myocardial infarction; ovarian cancer; Stage 4 ovarian Cancer; uterine cancer; - PSHx: 05:45 Heart Stents; right foot; lg3 - Immunization history:: Adult Immunizations up to date, Client reports receiving the 2nd dose of the Covid vaccine. - Social history:: Smoking status: Patient reports the use of cigarette tobacco products, smokes one pack cigarettes per day. Patient/guardian denies using alcohol, street drugs. - Family history:: not pertinent. - Hospitalizations: : No recent hospitalization is reported. ROS: 05:45 Unable to obtain ROS due to patient distress, patient being uncooperative. rn Exam: 05:45 Constitutional: This is a well developed, well nourished patient who is awake, alert, rn moderate tachypnea and in respiratory distress, rocking back and forth Head/Face: Normocephalic, atraumatic. Cardiovascular: Tachycardic, regular. No pulse deficits. Respiratory: + moderate tachypnea with 2 word sentences, + bilateral crackles and faint exp wheezing Abdomen/GI: Soft, non-tender Skin: Warm, dry MS/ Extremity: Pulses equal, no cyanosis. Neurovascular intact. Full, normal range of motion. Equal circumference. Neuro: Awake and alert, GCS 15 06:22 ECG was reviewed by the Attending Physician. rn Vital Signs: 05:41 BP 163 / 86; Pulse 108; Resp 32; Pulse Ox 89% on 12% Nebulizer Mask; Weight 76.66 kg lg3 (R); Height 5 ft. 4 in. (162.56 cm) (R); Pain 0/10; 05:51 BP 157 / 74; Pulse 98; Resp 19; Temp 98.9(O); Pulse Ox 100% on 80% BiPAP; lg3 07:29 BP 104 / 51; Pulse 85; Resp 20; Pulse Ox 100% on BiPAP; vg1 08:07 BP 119 / 66; Pulse 81; Resp 18; Pulse Ox 94% on R/A; vg1 09:46 BP 123 / 64; Pulse 73; Pulse Ox 93% on R/A; ap3 10:00 BP 114 / 62; Pulse 72; Resp 13; Temp 98.1; Pulse Ox 97% on 2 lpm NC; vg1 05:41 Body Mass Index 29.01 (76.66 kg, 162.56 cm) lg3 MDM: 05:40 Patient medically screened. rn 05:58 ED course: Improved after bipap placement. rn 06:35 ED course: No source of infection identified at this time, elevated lactate but also rn CHF with what looks like pulmonary edema on CXR, no hypotension, will have to be careful with IVF, will not be giving 30ml/kg bolus unless becomes hypotensive and will wait for infectious source to be identified as lactate could be elevated 2/2 hypoxemia and poor tissue perfusion.. 07:00 Differential diagnosis: Anemia CHF exacerbation, Myocardial Infarction Pneumothorax rn pulmonary edema, reactive airway disease. Data reviewed: vital signs, nurses notes, lab test result(s), EKG, radiologic studies, and as a result, I will admit patient. Counseling: I had a detailed discussion with the patient and/or guardian regarding: the historical points, exam findings, and any diagnostic results supporting the discharge/admit diagnosis, lab results, radiology results, the need for further work-up and treatment in the hospital. Response to treatment: the patient's symptoms have mildly improved after treatment, and as a result, I will admit patient. Admission orders: after a detailed discussion of the patient's condition and case, the admit orders are written by me. ED course: CXR and labs consistent with CHF exacerbation and volume overload. Ordered lasix. No source of infection at this time. . 07:04 ED course: Pt admitted to Dr. Cannon for CHF exacerbation, hypoxemia. . rn 08:16 ED course: Patient stating she does not want admission to the hospital at this time and ms3 would like to be discharged to go back to hospice. Dr Cannon discussed the possibility of worsening heart failure, myocardial infarction with recent stent stenosis, worsening pneumonia leading to . Patient is alert and oriented x4, in no apparent distress, 95% on room air, ambulatory in the treatment room.. 08:25 ED course: Patient stating she would like to stay in the hospital at this time. ms3 Discussed with Dr. Cannon and he accepts admission. All questions were answered.. 06/25 05:41 Order name: Blood Culture Adult (2) rn 06/25 05:41 Order name: CBC with Diff; Complete Time: 06:34 rn 06/25 05:41 Order name: CMP; Complete Time: 06:36 rn 06/25 05:41 Order name: Lactate; Complete Time: 06:36 rn 06/25 05:41 Order name: Protime (+inr); Complete Time: 06:34 rn 06/25 05:41 Order name: Ptt, Activated; Complete Time: 06:34 rn 06/25 05:41 Order name: BNP; Complete Time: 06:36 rn 06/25 05:41 Order name: Troponin High Sensitivity; Complete Time: 06:36 rn 06/25 05:43 Order name: Flu; Complete Time: 06:57 rn 06/25 05:43 Order name: SARS-COV-2 RT PCR (Document "Date of Onset" if Symptomatic) rn 06/25 05:48 Order name: ABG; Complete Time: 06:34 as6 06/25 06:16 Order name: Glucose, Ancillary Testing; Complete Time: 06:34 EDMS 06/25 07:55 Order name: Lactate EDMS 06/25 07:55 Order name: Troponin High Sensitivity EDMS 06/25 07:55 Order name: Troponin High Sensitivity EDMS 06/25 07:55 Order name: Troponin High Sensitivity EDMS 06/25 09:41 Order name: CBC with Automated Diff EDMS 06/25 09:41 Order name: CBC with Automated Diff EDMS 06/25 09:41 Order name: CBC with Automated Diff EDMS 06/25 09:41 Order name: CBC with Automated Diff EDMS 06/25 09:41 Order name: Comprehensive Metabolic Panel EDMS 06/25 09:41 Order name: Comprehensive Metabolic Panel EDMS 06/25 09:41 Order name: Comprehensive Metabolic Panel EDMS 06/25 09:41 Order name: Comprehensive Metabolic Panel EDMS 06/25 09:41 Order name: Magnesium EDMS 06/25 09:41 Order name: Magnesium EDMS 06/25 09:41 Order name: Phosphorus EDMS 06/25 09:41 Order name: Phosphorus EDMS 06/25 10:18 Order name: D-Dimer EDMS 06/25 10:18 Order name: Procalcitonin EDMS 06/25 05:41 Order name: Chest Single View XRAY rn 06/25 05:41 Order name: Accucheck; Complete Time: 06:05 rn 06/25 05:41 Order name: Cardiac monitoring; Complete Time: 05:52 rn 06/25 05:41 Order name: EKG - Nurse/Tech; Complete Time: 05:54 rn 06/25 05:41 Order name: IV Saline Lock - Large Bore; Complete Time: 05:54 rn 06/25 05:41 Order name: Labs collected and sent; Complete Time: 06:05 rn 06/25 05:41 Order name: O2 Per Protocol; Complete Time: 05:52 rn 06/25 05:41 Order name: O2 Sat Monitoring; Complete Time: 05:52 rn 06/25 05:41 Order name: Vital Signs; Complete Time: 05:52 rn 06/25 05:41 Order name: BIPAP rn 06/25 05:41 Order name: EKG; Complete Time: 05:42 rn 06/25 07:55 Order name: Vent Perfusion VQ Scan EDMS 06/25 08:15 Order name: Consult Internal Medicine-Davis, Ruben, MD; Complete Time: 08:21 ms3 06/25 09:41 Order name: Heart Healthy EDMS 06/25 10:28 Order name: Echo with Doppler EDMS 06/25 10:32 Order name: Urinalysis EDMS EC: Rate is 97 beats/min. Rhythm is regular. Right axis deviation noted. QRS is positive in rn lead I and negative in lead aVF. KS interval is normal. QRS interval is normal. QT interval is normal. No Q waves. T waves are Normal. No ST changes noted. Clinical impression: NSR w/ Non-specific ST/T Changes. Interpreted by me. Reviewed by me. Administered Medications: 06:05 Drug: Xopenex (levalbuterol) (3) 1.25 mg Route: Inhalation; as6 07:32 Follow up: Response: No adverse reaction vg1 06:05 Drug: Magnesium Sulfate 1 grams Route: IVPB; Infused Over: 1 hrs; Site: left as6 antecubital; 07:31 Follow up: IV Status: Completed infusion vg1 06:59 CANCELLED (Duplicate Order): Lasix (furosemide) 40 mg IVP once; give over 2 minutes rn 07:20 Drug: Lasix (furosemide) 30 mg {Note: Pt given half of dose; BP 104/51; received VO vg1 from Dr Lloyd to administer half of dose now. .} Route: IVP; Site: left antecubital; 08:35 Drug: Lasix (furosemide) 30 mg {Note: Received VO from Dr Cannon to administer remaining vg1 of 30 mg of Lasix..} Route: IVP; Site: left antecubital; 09:48 Follow up: Response: No adverse reaction vg1 10:35 Not Given (Patient Refused): NS 0.9% 500 ml IV at bolus once vg1 Disposition: 08:26 Critical Care:. ms3 13:49 Chart complete. ms3 Disposition Summary: 06/25/22 08:25 Hospitalization Ordered Hospitalization Status: Inpatient Admission(06/25/22 08:25) ms3 Provider: Ruben Cannon(06/25/22 08:25) ms3 Condition: Stable(06/25/22 08:25) ms3 Problem: new(06/25/22 08:25) ms3 Symptoms: have improved(06/25/22 08:25) ms3 Bed/Room Type: Standard(06/25/22 08:25) ms3 Location: Intensive Care Unit(06/25/22 10:10) eb Room Assignment: 7-(06/25/22 10:20) eb Diagnosis - Heart failure, unspecified(06/25/22 08:25) ms3 - Hypoxemia(06/25/22 08:25) ms3 - Metastatic Ovarian/ Uterine Cancer ms3 - Pneumonia, unspecified organism ms3 - Severe sepsis with septic shock ms3 Forms: - Medication Reconciliation Form ms3 - SBAR form ms3 Critical care time excluding procedures: 08:26 Critical care time: Bedside Care: 50 minutes. Total time: 50 minutes ms3 Signatures: Dispatcher [employer] EDMS Fernando Youngblood MD MD rn Botello, Elizabeth eb Gibson, Lacie, RN RN lg3 Sophie Felton, RN RN [email or web address] Bret Lloyd DO DO ms3 Renzo Rizzo, RN RN as6 Corrections: (The following items were deleted from the chart) 06:38 06:35 ED course: No source of infection identified at this time, elevated lactate but rn also CHF with what looks like pulmonary edema on CXR, no hypotension, will have to be careful with IVF. . rn 06:59 06:58 Lasix (furosemide) 40 mg IVP once; give over 2 minutes ordered. rn rn 08:18 07:05 Inpatient Admission rn ms3 08:18 07:05 Ruben Cannon rn ms3 08:18 07:05 Telemetry/MedSurg (Inpatient) rn ms3 08:18 07:05 Stable rn ms3 08:18 07:05 an acute exacerbation rn ms3 08:18 07:05 have improved rn ms3 08:18 07:05 Standard rn ms3 08:18 07:05 rn ms3 08:18 07:05 Unspecified combined systolic (congestive) and diastolic (congestive) heart ms3 failure rn 08:18 07:05 Hypoxemia rn ms3 08:23 08:19 Home ms3 ms3 08:23 08:19 Stable ms3 ms3 08:23 08:19 Hypoxemia ms3 ms3 08:23 08:19 Heart failure, unspecified ms3 ms3 08:23 08:19 Metastatic ovarian cancer ms3 ms3 08:23 08:19 Metastatic uterine cancer ms3 ms3 08:23 08:19 Lactic Acidosis ms3 ms3 08:26 07:04 Critical Care: rn ms3 08:26 07:04 Critical care time: Bedside Care: 35 minutes. Total time: 35 minutes rn ms3 10:10 08:25 Telemetry/MedSurg (Inpatient) ms3 eb 10:10 08:25 ms3 eb 10:20 10:10 4- eb eb
--- NOTE | 2022-06-25 07:06 | ER ---
Nurse's Notes [facility] Name: Noy Lang Age: 51 yrs Sex: Female : 1970 Arrival Date: 06/25/2022 Time: 05:40 Bed 4 Private MD: Diagnosis: Heart failure, unspecified;Hypoxemia;Metastatic Ovarian/ Uterine Cancer;Pneumonia, unspecified organism;Severe sepsis with septic shock Presentation: 06/25 05:41 Chief complaint: EMS states: toned out for SOB. 89% on 4L upon arrival. mild lg3 respiratory wheezing bilaterally. 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 O2 increased to 96%.. Coronavirus screen: Client denies travel out of the [place] in the last 14 days. At this time, the client does not indicate any symptoms associated with coronavirus-19. Ebola Screen: Patient negative for fever greater than or equal to 101.5 degrees Fahrenheit, and additional compatible Ebola Virus Disease symptoms. Initial Sepsis Screen: Does the patient meet any 2 criteria? RR > 20 per min. HR > 90 bpm. Yes Does the patient have a suspected source of infection? No. Patient's initial sepsis screen is negative. Risk Assessment: Do you want to hurt yourself or someone else? Patient reports no desire to harm self or others. Onset of symptoms was June 25, 2022. 05:41 Method Of Arrival: EMS lg3 05:41 Acuity: ARVIND 3 lg3 Triage Assessment: 05:45 General: Appears distressed, uncomfortable, Behavior is cooperative, anxious, restless. lg3 Pain: Denies pain. EENT: No deficits noted. No signs and/or symptoms were reported regarding the EENT system. Neuro: No deficits noted. Boateng Agitation-Sedation Scale (RASS): +1 Restless Level of Consciousness is awake, alert, obeys commands, Oriented to person, place, time, situation. Cardiovascular: No deficits noted. Denies chest pain, Capillary refill < 3 seconds Clubbing of nail beds is absent JVD is absent Patient's skin is warm and dry. Respiratory: Airway is patent Trachea midline Respiratory effort is labored, pursed lip, using tripod position, Respiratory pattern is tachypnea Patient placed CPAP: Breath sounds with wheezes bilaterally. GI: No deficits noted. No signs and/or symptoms were reported involving the gastrointestinal system. Abdomen is round non-distended, Bowel sounds present X 4 quads. Abd is soft and non tender X 4 quads. : No deficits noted. No signs and/or symptoms were reported regarding the genitourinary system. Derm: No deficits noted. No signs and/or symptoms reported regarding the dermatologic system. Skin is intact, is healthy with good turgor, Skin is diaphoretic, Skin is pale, Skin temperature is warm. Musculoskeletal: No deficits noted. No signs and/or symptoms reported regarding the musculoskeletal system. Circulation, motion, and sensation intact. Range of motion: intact in all extremities. 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 - Social history:: Smoking status: Patient reports the use of cigarette tobacco products, smokes one pack cigarettes per day. Patient/guardian denies using alcohol, street drugs. - Family history:: not pertinent. - Hospitalizations: : No recent hospitalization is reported. Screenin:50 Abuse screen: Denies threats or abuse. Denies injuries from another. Nutritional lg3 screening: No deficits noted. Tuberculosis screening: No symptoms or risk factors identified. Fall Risk None identified. Assessment: 05:50 General: see triage assessment . lg3 06:55 General: Appears in no apparent distress. comfortable, Behavior is cooperative, lg3 anxious. Pain: Denies pain. Respiratory: Airway is patent Trachea midline Respiratory effort is even, unlabored, Respiratory pattern is regular, symmetrical, the patient has mild shortness of breath. 07:15 General: Appears in no apparent distress. comfortable, Behavior is calm, cooperative. vg1 Pain: Denies pain. Neuro: Level of Consciousness is awake, alert, obeys commands, Oriented to person, place, time, situation. Cardiovascular: Patient's skin is warm and dry. Respiratory: Airway is patent Respiratory effort is even, unlabored, Patient placed on BiPAP: Inspiratory Pressure: 15 FiO2%: 75 Respiratory Rate: 14. GI: No signs and/or symptoms were reported involving the gastrointestinal system. : No signs and/or symptoms were reported regarding the genitourinary system. EENT: No signs and/or symptoms were reported regarding the EENT system. Derm: Skin is pink, warm \\T\\ dry. Musculoskeletal: Circulation, motion, and sensation intact. 08:00 Reassessment: Dr Cannon at the bedside. vg1 08:15 Reassessment: Patient appears in no apparent distress at this time. No changes from vg1 previously documented assessment. Patient and/or family updated on plan of care and expected duration. Pain level reassessed. Patient is alert, oriented x 3, equal unlabored respirations, skin warm/dry/pink. BiPAP d/c. 09:13 Reassessment: Dr Frederick at bedside. vg1 09:15 Reassessment: Patient appears in no apparent distress at this time. Patient and/or vg1 family updated on plan of care and expected duration. Pain level reassessed. Patient is alert, oriented x 3, equal unlabored respirations, skin warm/dry/pink. 09:42 Reassessment: Patient and/or family updated on plan of care and expected duration. Pain ap3 level reassessed. Patient is alert, oriented x 3, equal unlabored respirations, skin warm/dry/pink. Patient states symptoms have improved. 10:20 Reassessment: attempted to call report. vg1 Vital Signs: 05:41 BP 163 / 86; Pulse 108; Resp 32; Pulse Ox 89% on 12% Nebulizer Mask; Weight 76.66 kg lg3 (R); Height 5 ft. 4 in. (162.56 cm) (R); Pain 0/10; 05:51 BP 157 / 74; Pulse 98; Resp 19; Temp 98.9(O); Pulse Ox 100% on 80% BiPAP; lg3 07:29 BP 104 / 51; Pulse 85; Resp 20; Pulse Ox 100% on BiPAP; vg1 08:07 BP 119 / 66; Pulse 81; Resp 18; Pulse Ox 94% on R/A; vg1 09:46 BP 123 / 64; Pulse 73; Pulse Ox 93% on R/A; ap3 10:00 BP 114 / 62; Pulse 72; Resp 13; Temp 98.1; Pulse Ox 97% on 2 lpm NC; vg1 05:41 Body Mass Index 29.01 (76.66 kg, 162.56 cm) lg3 ED Course: 05:40 Patient arrived in ED. lg3 05:40 Fernando Youngblood MD is Attending Physician. rn 05:45 Triage completed. lg3 05:45 Arm band placed on left wrist. lg3 05:46 Patient has correct armband on for positive identification. Placed in gown. Bed in low tw5 position. Call light in reach. Side rails up X2. Client placed on continuous cardiac and pulse oximetry monitoring. NIBP monitoring applied. Moved to private room. Warm blanket given. Verbal reassurance given. 05:46 O2 via RT placed patient on BIPAP. tw5 05:47 Renzo Rizzo, RN is Primary Nurse. as6 05:52 BIPAP Sent. lg3 06:17 Chest Single View XRAY In Process Unspecified. EDMS 06:34 Notified ED physician of a critical lab result(s). troponin 13,195.9 lac 6.5. tw5 06:52 SARS-COV-2 RT PCR (Document "Date of Onset" if Symptomatic) Sent. tw5 06:52 Flu Sent. tw5 07:04 Ruben Cannon MD is Hospitalizing Provider. rn 07:25 Second set of blood cultures drawn by ms. ap3 07:32 Primary Nurse role handed off by Renzo Rizzo RN vg1 07:32 Sophie Felton RN is Primary Nurse. vg1 08:15 Attending Physician role handed off by Fernando Youngblood MD ms3 08:15 Bret Lloyd DO is Attending Physician. ms3 08:23 Ruben Cannon MD is Hospitalizing Provider. ms3 11:15 No provider procedures requiring assistance completed. Patient admitted, IV remains in vg1 place. Administered Medications: 06:05 Drug: Xopenex (levalbuterol) (3) 1.25 mg Route: Inhalation; as6 07:32 Follow up: Response: No adverse reaction vg1 06:05 Drug: Magnesium Sulfate 1 grams Route: IVPB; Infused Over: 1 hrs; Site: left as6 antecubital; 07:31 Follow up: IV Status: Completed infusion vg1 06:59 CANCELLED (Duplicate Order): Lasix (furosemide) 40 mg IVP once; give over 2 minutes rn 07:20 Drug: Lasix (furosemide) 30 mg {Note: Pt given half of dose; BP 104/51; received VO vg1 from Dr Lloyd to administer half of dose now. .} Route: IVP; Site: left antecubital; 08:35 Drug: Lasix (furosemide) 30 mg {Note: Received VO from Dr Cannon to administer remaining vg1 of 30 mg of Lasix..} Route: IVP; Site: left antecubital; 09:48 Follow up: Response: No adverse reaction vg1 10:35 Not Given (Patient Refused): NS 0.9% 500 ml IV at bolus once vg1 Medication: 11:15 VIS not applicable for this client. vg1 Outcome: 07:05 Decision to Hospitalize by Provider. rn 08:19 Discharge ordered by MD. ms3 08:25 Decision to Hospitalize by Provider. ms3 11:15 Admitted to ICU accompanied by nurse, accompanied by tech, room 7, with oxygen, with vg1 chart, Report called to [place] 11:15 Condition: good 11:15 Instructed on the need for admit. 11:15 Patient left the ED. vg1 Signatures: Dispatcher [employer] EDMS Fernando Youngblood MD MD rn Prokisch, Amanda, RN RN [email or web address] Elida Bob, RN RN [id number] Sophie Felton, RN RN vg1 Bret Lloyd DO DO ms3 Michelle Perez tw5 Renzo Rizzo, RN RN as6 Corrections: (The following items were deleted from the chart) 07:30 07:29 BP 104 / 51; Pulse 85bpm; Resp 20bpm; Pulse Ox 100% CPAP; vg1 vg1 07:31 07:15 Respiratory: Airway is patent Respiratory effort is even, unlabored, Patient vg1 placed CPAP: vg1
[2022-06-25] MEDS ORDERED: FUROSEMIDE 100 MG/10 ML VIAL IV ONE (07:13)
--- NOTE | 2022-06-25 07:52 | P.HP ---
Patient History Date of Service: 06/25/22 Allergies No Known Allergies Allergy (Unverified 05/19/22 03:37) Home Medications: Azithromycin Tab [Zithromax*] 250 mg PO DAILY #5 tab 05/19/22 Furosemide [Lasix] 20 mg PO DAILY #30 tab 05/19/22 Potassium Chloride [K-Dur] 10 meq PO DAILY #30 tab 05/19/22 predniSONE [Deltasone] 20 mg PO DAILY #5 tab 05/19/22 - Past Medical/Surgical History Diabetic: Yes -: Stage 4 Breast Cancer with metastases -: Type 2 Diabetes, Insulin-Dependent -: CHF -: CAD -: Hypertension -: Stents Psychosocial/ Personal History: Patient lives at home. - Social History Alcohol use: No CD- Drugs: No Caffeine use: Yes Physical Examination - Studies Laboratory Data (last 24 hrs) 06/25/22 06:01: PT 14.0 H, INR 1.27, APTT 26.7 06/25/22 06:01: Sodium 129 L, Potassium 3.9, BUN 34 H, Creatinine 1.62 H, Glucose 314 H, Total Bilirubin 1.0, AST 187 H, ALT 156 H, Alkaline Phosphatase 315 H 06/25/22 06:01: WBC 11.30 H, Hgb 9.3 L, Hct 27.5 L, Plt Count 462 H Microbiology Data (last 24 hrs): 06/25/22 06:02 Nasopharnyx Influenza Type A Antigen Screen - Final 06/25/22 06:02 Nasopharnyx Influenza Type B Antigen Screen - Final Assessment and Plan - Advance Directives Does patient have a Living Will: Yes Does patient have a Durable POA for Healthcare: Yes
[2022-06-25] MEDS ORDERED: VANCOMYCIN 1 GM in NA CHLORIDE 0.9% 250 ML IVPB SCH (08:00)
[2022-06-25] MEDS ORDERED: ASPIRIN 81 MG CHEWABLE TABLET PO ONE (08:00)
--- NOTE | 2022-06-25 08:25 | P.CNS ---
Date of Consult: 06/25/22 Reason for Consult: Acute Heart Failure Requesting Physician: Fernando Youngblood Chief Complaint: Shortness of Breath Allergies No Known Allergies Allergy (Unverified 05/19/22 03:37) Home medications list reviewed: Yes Home Medications: Clopidogrel Bisulfate [Plavix] 75 mg PO DAILY 06/25/22 Gabapentin 1,200 mg PO BID 06/25/22 Insulin Detemir [Levemir] 50 unit SQ DAILY 06/25/22 Metformin HCl 850 mg PO BID 06/25/22 Methadone HCl 5 mg PO DAILY AFTER SUPPER 06/25/22 Metoprolol Succinate [Toprol Xl] 25 mg PO DAILY 06/25/22 Morphine Sulfate [Morphine Sulfate ER] 15 mg PO BID 06/25/22 - Past Medical/Surgical History Diabetic: Yes -: Stage 4 Ovarian/Uterine Cancer with metastases -: Type 2 Diabetes, Insulin-Dependent -: CHF -: CAD -: Hypertension -: Stents Psychosocial/ Personal History: Patient lives at home. - Social History Smoking Status: Current every day smoker Alcohol use: No CD- Drugs: No Caffeine use: Yes Physical Examination Laboratory Data (last 24 hrs) 06/25/22 06:01: PT 14.0 H, INR 1.27, APTT 26.7 06/25/22 06:01: Sodium 129 L, Potassium 3.9, BUN 34 H, Creatinine 1.62 H, Glucose 314 H, Total Bilirubin 1.0, AST 187 H, ALT 156 H, Alkaline Phosphatase 315 H 06/25/22 06:01: WBC 11.30 H, Hgb 9.3 L, Hct 27.5 L, Plt Count 462 H
[2022-06-25] MEDS: PIPER TAZO 3.375 GM in NA CHLORIDE 0.9% 100 ML IV SCH ×3 (09:00→16:45)
--- NOTE | 2022-06-25 09:46 | P.HP ---
Certification for Inpatient Patient admitted to: Inpatient With expected LOS: >2 Midnights Patient will require the following post-hospital care: Hospice Practitioner: I am a practitioner with admitting privileges, knowledge of patient current condition, hospital course, and medical plan of care. Services: Services provided to patient in accordance with Admission requirements found in Title 42 Section 412.3 of the Code of Federal Regulations Patient History Date of Service: 06/25/22 Reason for admission: Shortness of Breath History of Present Illness: Ms. Noy Lang is a 51 year old female who has a past medical history of metastatic uterine/ovarian cancer previously on chemotherapy and now on hospice, coronary artery disease s/p PCI to LCX on 06/17/2022, chronic congestive heart failure, type II diabetes mellitus, and hypertension who presents to the [facility] Emergency Department for shortness of breath. She reports that, this morning around 4-5 AM, she awoke from sleep with shortness of breath with an associated dry cough. She denies any associated chest pain, palpitations, fever, or chills. She states that the shortness of breath has been progressively worsening since its onset. She denies any obvious inciting or alleviating factors. She has tried taking deep breaths, with mild improvement of her symptoms. On review of systems, she denies any headaches, dizziness, syncope, weakness, wheezing, cough, abdominal pain, nausea/vomiting, diarrhea, constipation, hematochezia, melena, dysuria, hematuria, myalgia, or any other symptoms. She presented to the Emergency Department for further evaluation. Upon presentation, her vital signs were notable for a heart rate of 108 bpm, a respiratory rate of 32 breaths/min, and an SpO2 of 89 % on 12 L nasal cannula. Her laboratory studies were notable for a hemoglobin of 9.3 (baseline ~11), a sodium of 129, a creatinine of 1.62 (baseline ~0.9-1.0), a glucose of 314, an AST of 187, an ALT of 156, an NT-Pro BNP of 11,146, and an initial troponin of 13,195.9. Blood cultures x 2 were obtained. EKG was without STEMI criteria. Chest x-ray revealed, "new bilateral pulmonary edema or pneumonia." In the Emergency Department, she was given levalbuterol, magnesium sulfate, and furosemide. She was admitted to the General Internal Medicine service for further evaluation. Allergies No Known Allergies Allergy (Unverified 05/19/22 03:37) Home medications list reviewed: Yes Home Medications: Clopidogrel Bisulfate [Plavix] 75 mg PO DAILY 06/25/22 Gabapentin 1,200 mg PO BID 06/25/22 Insulin Detemir [Levemir] 50 unit SQ DAILY 06/25/22 Metformin HCl 850 mg PO BID 06/25/22 Methadone HCl 5 mg PO DAILY AFTER SUPPER 06/25/22 Metoprolol Succinate [Toprol Xl] 25 mg PO DAILY 06/25/22 Morphine Sulfate [Morphine Sulfate ER] 15 mg PO BID 06/25/22 - Past Medical/Surgical History Diabetic: Yes -: Stage 4 Ovarian/Uterine Cancer with metastases -: Type 2 Diabetes, Insulin-Dependent -: CHF -: CAD -: Hypertension -: Stents Psychosocial/ Personal History: Patient lives at home. - Family History Family History: Reviewed- Non-Contributory - Social History Smoking Status: Current every day smoker Alcohol use: No CD- Drugs: No Caffeine use: Yes Review of Systems General: Unremarkable Eyes: Unremarkable ENT: Unremarkable Respiratory: Cough, Dry, Shortness of Breath Cardiovascular: Orthopnea, Edema Gastrointestinal: Unremarkable Genitourinary: Unremarkable Musculoskeletal: Unremarkable Integumentary: Unremarkable Neurological: Unremarkable Lymphatics: Unremarkable Physical Examination - Vital Signs Temperature: 98.9 F Blood Pressure: 157/74 Pulse: 98 Respirations: 19 Pulse Ox (%): 100 - Physical Exam General: Alert, In no apparent distress, Oriented x3 HEENT: Atraumatic, PERRLA, Mucous membr. moist/pink, EOMI, Sclerae nonicteric Neck: Supple, JVD distended Respiratory: Diminished, Crackles/rales (bibasilar) Cardiovascular: Regular rate/rhythm, Normal S1 S2, No gallops, No rubs, No murmurs, Edema (2+ pitting) Capillary refill: <2 Seconds Gastrointestinal: Normal bowel sounds, Soft and benign, Non-distended, No tenderness, No rebound, No guarding Musculoskeletal: No clubbing Integumentary: No rashes Neurological: Normal speech, Cranial nerves 3-12 intact, Normal affect - Studies Laboratory Data (last 24 hrs) 06/25/22 06:01: PT 14.0 H, INR 1.27, APTT 26.7 06/25/22 06:01: Sodium 129 L, Potassium 3.9, BUN 34 H, Creatinine 1.62 H, Glucose 314 H, Total Bilirubin 1.0, AST 187 H, ALT 156 H, Alkaline Phosphatase 315 H 06/25/22 06:01: WBC 11.30 H, Hgb 9.3 L, Hct 27.5 L, Plt Count 462 H Microbiology Data (last 24 hrs): 06/25/22 06:02 Nasopharnyx Influenza Type A Antigen Screen - Final 06/25/22 06:02 Nasopharnyx Influenza Type B Antigen Screen - Final Assessment and Plan - Plan # Concern for Septic Shock likely secondary to Pneumonia She meets sepsis criteria based on HR > 90 bpm and RR > 20 breaths/min and the suspected source is pneumonia. Severe sepsis is suspected due to concern for tissue hypoperfusion/organ dysfunction based on acute respiratory failure requiring BiPAP and lactic acid > 2 mmol/L. Septic shock is suspected due to initial lactate > 4 mmol/L. - Sepsis order set was initiated - Chest x-ray = "new bilateral pulmonary edema or pneumonia" - Lactate was 6.5 -> 2.7 - Blood cultures drawn before antibiotics were given - Broad spectrum antibiotics started: Vancomycin + Piperacillin Tazobactam - In regards to fluids: - 30 mL/kg of IV fluids was not administered given SBP > 90, MAP > 65 - She was not given IV fluids also due to concern for volume overload from congestive heart failure - Sepsis reassessment completed at 09:10 AM on 06/25/2022 # Acute Hypoxic Respiratory Failure - likely secondary to Pulmonary Edema and Pneumonia Upon my evaluation, she was on BiPAP and her SpO2 was 100 %. - Evaluation thus far: - D-Dimer = pending - Procalcitonin = pending - ABG = pH 7.33, PCO2 40.3, PO2 331.0 - taken on BiPAP - Chest x-ray = "new bilateral pulmonary edema or pneumonia" - V/Q scan = pending - Management plan: - Consulted Pulmonary Medicine - recommendations appreciated - Consulted Respiratory Therapy - Supplemental oxygen to maintain SpO2 > 92% - Started vancomycin, piperacillin-tazobactam to cover HCAP given recent admission - PRN benzonatate, guaifenesin - Encouraged incentive spirometry # Non-ST Segment Elevation Myocardial Infarction # Coronary Artery Disease s/p PCI to LCX (06/17/2022) # Hypertension - Evaluation thus far: - EKG: ST depressions in V3-V5, trend - Serial troponin - first was 13,195.9 - Ordered transthoracic echocardiogram - Chest x-ray = "new bilateral pulmonary edema or pneumonia" - Management plan: - Consult Cardiology and spoke with Dr. Frederick - recommendations appreciated - Started heparin drip - S/P aspirin 324 mg PO x 1 in ED - Continue home aspirin, clopidogrel - Started atorvastatin - Hold metoprolol given concern for septic shock - Consider starting LADI-inhibitor/ARB if SG improves # Acute on Chronic Decompensated Congestive Heart Failure with Unknown Ejection Fraction - Consult Cardiology and spoke with Dr. Frederick - recommendations appreciated - Ordered transthoracic echocardiogram - NT-Pro BNP = 11,146 - S/P furosemide 40 mg IV x 1 in ED - Hold metoprolol given concern for septic shock - Daily weights - Strict I/O - Cardiac diet, 2 L fluid restriction, 2 g Na restriction # KDIGO Stage I Acute Kidney Injury - possibly Cardiorenal Syndrome - Nephrology consulted and spoke with Dr. Hannah - recommendations appreciated - Creatinine = 1.62 (baseline creatinine ~0.9-1.0) - Urinalysis = pending - IV diuretics as mentioned above - Monitor creatinine and urine output - If worsening, obtain renal ultrasound - Renally dose medications # Hyperglycemia in Type II Diabetes Mellitus # Hyponatremia secondary to Hyperglycemia # Diabetic Neuropathy - Continue home insulin detemir, gabapentin - Correction scale insulin ordered - Hold home metformin while hospitalized # Metastatic Uterine/Ovarian Cancer previously on Chemotherapy and now on Hospice # Anemia of Chronic Disease - Spoke with [facility] nurse, Ms. Grimaldo - initially Ms. Lang wanted to leave and go back to hospice; however, ultimately she decided to be admitted for aggressive care - She has temporarily revoked her hospice - Continue home methadone, morphine # Elevated LFTs Possible etiologies include congestive hepatopathy vs metastatic disease - Requested RUQ ultrasound - Monitor LFTs # Tobacco Use Disorder - Tobacco cessation counseling provided - Hold nicotine patch for now as this is not ideal in the middle of an acute [place] Ruben Cannon M.D. Discharge Plan: Home Plan to discharge in: Greater than 2 days - Advance Directives Does patient have a Living Will: Yes Does patient have a Durable POA for Healthcare: Yes
[2022-06-25] MEDS ORDERED: GLUCAGON 1 MG/VIAL IM PRN (10:32)
[2022-06-25] MEDS ORDERED: D50W 25 GM/50 ML SYRINGE IV PRN (10:32)
[2022-06-25] MEDS ORDERED: DEXTROSE 10%-WATER 125 ML IV PRN (10:55)
[2022-06-25] MEDS ORDERED: VANCOMYCIN 2 GM in NA CHLORIDE 0.9% 500 ML IVPB ONE (11:00)
[2022-06-25] MEDS: MORPHINE 15 MG IR TAB PO SCH ×2 (11:40→20:48)
[2022-06-25] MEDS: guaiFENesin 100 MG/5 ML UCUP PO PRN (11:41)
[2022-06-25 11:50] VITALS: BMI 29.0
[2022-06-25] MEDS: CLOPIDOGREL 75 MG TABLET PO SCH (12:18)
[2022-06-25] MEDS: INSULIN -REGULAR HUMAN 50 UNIT/0.5 ML ML SQ SCH ×3 (12:28→20:50)
--- NOTE | 2022-06-25 12:36 | RAD REPORT ---
EXAM DESCRIPTION: NM - Vent Perfusion VQ Scan - 06/25/2022 12:24 pm CLINICAL HISTORY: Chest pain COMPARISON: June 25, 2022 chest x-ray TECHNIQUE: 17.1 Mci [id number] was administered by inhalation. First breath, equilibrium, and washout images of the lungs obtained 7.2 millicuries Technetium-99 MAA was administered intravenously. Anterior, posterior, lateral and ob lique views of the lungs were taken. FINDINGS: Perfusion images demonstrate patchy inhomogeneous radiotracer activity throughout the lung s. The diminished uptake is present within predominately the central portions of the lungs. There is matched diminished uptake of radiotracer within the periphery of the lungs on perfusion and ventilation images. No mismatched segmental or lobar perfusion defects are seen. IMPRESSION: The patient has a low probability for a pulmonary embolism
--- NOTE | 2022-06-25 13:08 | P.CNS ---
Date of Consult: 06/25/22 Reason for Consult: SG Requesting Physician: Ruben Cannon Chief Complaint: Shortness of Breath History of Present Illness: 51F w/ PMHx of metastatic uterine/ovarian cancer previously on chemotherapy and now on hospice, Htn, CAD s/p recent PCI to LCX on 06/17/2022, chronic CHF, & DM2, who p/w SOB + dry cough, found to have SIRS & hypoxia, admitted for sepsis 2/2 pneumonia. Referred to Nephrology for SG. SCr 1.6 on adm. Baseline SCr 1.0 as of 06/18/2022. Serum Na is low at 129. Allergies No Known Allergies Allergy (Unverified 05/19/22 03:37) Home Medications: Albuterol Sulfate [Proair Hfa] 8.5 gm IH Q6H PRN 06/25/22 Aspirin [Aspirin EC] 81 mg PO DAILY 06/25/22 Budesonide/Formoterol Fumarate [Symbicort 160-4.5 Mcg Inhaler] 2 puff IH DAILY 06/25/22 Clopidogrel Bisulfate [Plavix] 75 mg PO DAILY 06/25/22 Fluoxetine HCl [Prozac] 40 mg PO DAILY 06/25/22 Gabapentin 1,200 mg PO BID 06/25/22 Insulin Detemir [Levemir] 50 unit SQ DAILY 06/25/22 Levalbuterol HCl [Xopenex] 1.25 mg IH Q6H PRN 06/25/22 Metformin HCl 850 mg PO BID 06/25/22 Methadone HCl 5 mg PO DAILY AFTER SUPPER 06/25/22 Metoprolol Succinate [Toprol Xl] 25 mg PO DAILY 06/25/22 Morphine Sulfate [Morphine Sulfate ER] 15 mg PO BID 06/25/22 Omeprazole [Prilosec] 40 mg PO DAILY 06/25/22 - Past Medical/Surgical History Diabetic: Yes -: Stage 4 Ovarian/Uterine Cancer with metastases -: Type 2 Diabetes, Insulin-Dependent -: CHF -: CAD -: Hypertension -: Stents Psychosocial/ Personal History: Patient lives at home. - Social History Smoking Status: Current every day smoker Alcohol use: No CD- Drugs: No Caffeine use: Yes Place of Residence: Home Review of Systems General: Weakness Eyes: Unremarkable ENT: Unremarkable Respiratory: Cough, Dry, Shortness of Breath, SOB with Excertion Cardiovascular: Unremarkable Gastrointestinal: Unremarkable Genitourinary: Unremarkable Musculoskeletal: Unremarkable Integumentary: Unremarkable Neurological: Unremarkable Lymphatics: Unremarkable Physical Examination Temp Pulse Resp BP Pulse Ox 98.9 F 98 H 19 157/74 H 100 06/25/22 10:40 06/25/22 10:40 06/25/22 10:40 06/25/22 10:40 06/25/22 10:40 General: Other (Chronically ill appearing) HEENT: Atraumatic, Normocephalic Neck: Supple, JVD not distended Respiratory: Other (Symmetric chest expansion) Cardiovascular: No rubs, No murmurs Gastrointestinal: Soft and benign, No rebound Musculoskeletal: No clubbing Integumentary: No warmth Neurological: Normal speech, Normal tone Urinary: Other (No bladder distention) External genitalia: Deferred Rectal: Deferred Laboratory Data (last 24 hrs) 06/25/22 06:01: PT 14.0 H, INR 1.27, APTT 26.7 06/25/22 06:01: Sodium 129 L, Potassium 3.9, BUN 34 H, Creatinine 1.62 H, Glucose 314 H, Total Bilirubin 1.0, AST 187 H, ALT 156 H, Alkaline Phosphatase 315 H 06/25/22 06:01: WBC 11.30 H, Hgb 9.3 L, Hct 27.5 L, Plt Count 462 H Conclusions/Impression: # SG likely 2/2 prerenal state/ATN from contrast-induced nephropathy + sepsis, r/o AIN from PPI SCr 1.6 on adm. Baseline SCr 1.0 as of 06/18/2022. Received IV contrast on 06/17/2022 Urinalysis +trace proteinuria, no hematuria, no pyuria F/u random urine chem, upcr, CPK Hold PPI Limit fluid intake to 1.5L/d until serum Na consistently > 130 meq/L # Sepsis 2/2 pneumonia Abx per primary team F/u cultures # Hyponatremia 2/2 high ADH state from acute respi issues + renal dysfxn +/- low solute intake F/u serum osm + uric acid F/u random urine osm/Na/K Fluid restriction as above # CAD s/p recent PCI to LCX on 06/17/2022, chronic CHF On DAPT Hold diuretics BNP & trop sig elevated Per Cardiology # DM2 Mngt per primary team # Htn BP stable, monitor
[2022-06-25] MEDS: LEVALBUTEROL 1.25 MG/3 ML NEB NEB SCH ×2 (13:15→20:40)
[2022-06-25] MEDS: HEPARIN/D5W 25,000 UNIT/500 ML BAG IV SCH (14:19)
[2022-06-25] MEDS: GABAPENTIN 400 MG CAP PO SCH ×2 (14:22→20:48)
--- NOTE | 2022-06-25 15:26 | RAD REPORT ---
EXAM DESCRIPTION: US - Extrem Venous W Compress Trae - 06/25/2022 3:04 pm CLINICAL HISTORY: elevated d-dimer COMPARISON: Extrem Venous W Compress Trae dated 06/17/2022 TECHNIQUE: Real-time sonographic evaluation of the lower extremity deep venous systems was performed using color Doppler, grayscale, and compression. FINDINGS: Bilateral lower extremities. Normal compressibility, flow augmentation, phasic flow and spontaneous flow is identified in both the left and right lower extremity deep venous systems. No intraluminal filling defects seen. IMPRESSION: No DVT in either lower extremity.
--- NOTE | 2022-06-25 16:13 | RAD REPORT ---
EXAM DESCRIPTION: US - Liver Only - 06/25/2022 3:04 pm CLINICAL HISTORY: elevated LFTs COMPARISON: Vent Perfusion VQ Scan dated 06/25/2022 FINDINGS: The liver demonstrates increased echotexture . No focal liver lesion or intrahepatic biliary dilatation.No evidence of portal vein thrombosis. IMPRESSION: Hepatic steatosis.
[2022-06-25] MEDS: METHADONE HCL 10 MG TAB PO SCH (18:02)
[2022-06-25] MEDS: BENZONATATE 100 MG CAP PO PRN (18:47)
[2022-06-25 19:21] LABS: Potassium 3.7 mmol/L (3.5-5.1)
[2022-06-25] MEDS: ATORVASTATIN 40 MG TAB PO SCH (20:47)
[2022-06-26 00:01] LABS: Specific Gravity 1.016 (1.005-1.030); Urine Bacteria <20 /HPF (<20); Urine Bilirubin NEGATIVE (Negative); Urine Blood Negative (Negative); Urine Clarity Clear (Clear); Urine Color Light-Yellow (Yellow); Urine Glucose 2+ (Negative); Urine Mucus Slight /HPF (None Seen); Urine Protein TRACE (Negative); Urine Urobilinogen Normal (Normal); Urine pH 5.5 (5.0-7.0)
--- NOTE | 2022-06-26 00:17 | CON ---
Date of Consultation: 06/25/2022 Reason For Consultation: Elevated troponin. History Of Present Illness: This is a 51-year-old female with a history of coronary artery disease s tatus post recent non STEMI and a stent to her left circumflex, which was the culprit, done by myself about 2 weeks ago and the patient signed out against medical advice and apparently she did not take Plavix or aspirin, so she presented again to one of the [facility] facilities with acute heart attack and s he was sent by ambulance to [facility] and had another intervention done and also she signed out against medical advice from [facility] and she said since then she has been taken aspirin and Plavix. She comes in because of shortness of breath associated with dry cough. No chest pain specifically. No n ausea, vomiting, or diaphoresis. Past Medical History: Coronary artery disease status post recent heart attack and PCI, she is noncom pliant. She has diabetes, stage IV ovarian cancer with mets, hypertension, and congestive heart fail ure. Medications: Refer to reconciliation sheet for detailed list. Allergies: NO KNOWN DRUG ALLERGIES. Family History: No premature coronary artery disease or cancer. Social History: She is an active smoker. Does not drink. Review of Systems: All systems reviewed and they are negative except as mentioned in HPI. Physical Examination: Vital Signs: Reviewed. Head And Neck: Pupils are equal and reactive to light. Intact eye movements. No JVD. No cervical lymphadenopathy. Neck: Supple. Thyroid is not enlarged. Lungs: Clear to auscultation bilaterally. No rhonchi, wheezes, or crackles. No accessory muscle us e. Heart: Regular rate and rhythm. No extra sounds. Abdomen: Soft, nontender. Bowel sounds positive. No organomegaly. No masses or hernia. No rigidi ty or rebound. Extremities: No edema, clubbing, or cyanosis. Intact pulses. Investigations: Initial troponin was 13,195 and repeat was 8949. Assessment And Recommendation: 1.Elevated troponin. This could be a residual after the heart attack. The patient was not complian t after the first stent that was done here at [facility]. She did not take dual antiplatelet and end ed up having another acute heart attack and she signed out AMA from here and from [facility]. As such at t his point, I would avoid any further cardiac intervention as the patient is not compliant with medica tions and recommend to treat medically. Obtain echocardiogram. Start her on aspirin, Plavix, beta-b locker, and coronary vasodilators. 2.Shortness of breath, likely due to congestive heart failure as the patient had 2 heart attacks rec ently. Recommend low-dose Lasix. Monitor BUN, creatinine, and electrolytes. 3.Pneumonia, on antibiotics. SR/MATT Voice ID: [id number] Report ID: [id number]
[2022-06-26] MEDS: PIPER TAZO 3.375 GM in NA CHLORIDE 0.9% 100 ML IV SCH ×3 (00:24→17:21)
[2022-06-26] MEDS: LEVALBUTEROL 1.25 MG/3 ML NEB NEB SCH ×4 (01:14→20:00)
[2022-06-26 04:28] LABS: Absolute Lymphocytes (CBC) 1.3 K/uL (0.7-4.9); Hematocrit 25.1 % (36.0-45.0); Lymphocytes % 18.8 % (15.3-44.8); MCV 94.3 fL (80-100); MPV 8.7 fL (7.6-11.3); RBC Red Blood Cell Count 2.66 M/uL (3.86-4.86)
[2022-06-26 04:52] LABS: Albumin 2.6 g/dL (3.4-5.0); Bilirubin Total 0.6 mg/dL (0.2-1.0); Magnesium 2.3 mg/dL (1.8-2.4); Potassium 3.6 mmol/L (3.5-5.1); Protein, Total 7.3 g/dL (6.4-8.2)
[2022-06-26] MEDS ORDERED: POTASSIUM CL SA 10 MEQ TAB PO ONE (06:35)
[2022-06-26] MEDS ORDERED: POTASS/SODIUM PHOSPHATE 1 PKT POWD.PACK PO ONE (07:00)
[2022-06-26] MEDS: BENZONATATE 100 MG CAP PO PRN ×2 (07:38→16:31)
[2022-06-26] MEDS: guaiFENesin 100 MG/5 ML UCUP PO PRN ×3 (07:38→21:28)
[2022-06-26] MEDS: INSULIN -REGULAR HUMAN 50 UNIT/0.5 ML ML SQ SCH ×4 (08:15→21:16)
[2022-06-26] MEDS: INSULIN GLARGINE 100 UNIT/ML SQ SCH (08:16)
[2022-06-26] MEDS: MORPHINE 15 MG IR TAB PO SCH ×2 (08:19→20:11)
[2022-06-26] MEDS: CLOPIDOGREL 75 MG TABLET PO SCH (08:19)
[2022-06-26] MEDS: ASPIRIN 81 MG CHEWABLE TABLET PO SCH (08:20)
[2022-06-26] MEDS: GABAPENTIN 400 MG CAP PO SCH ×2 (08:20→20:12)
[2022-06-26] MEDS ORDERED: HOME MED 1 EA UNK (Insulin Detemir [Levemir] 100 UNIT/ML Vial) SQ SCH (09:00)
[2022-06-26] MEDS: HYDROCODONE/APAP 10/325 TAB PO PRN ×2 (10:49→22:09)
[2022-06-26] MEDS ORDERED: NA CHLORIDE 0.9% 1,000 ML IV SCH (11:00)
[2022-06-26] MEDS: HEPARIN/D5W 25,000 UNIT/500 ML BAG IV SCH (11:40)
--- NOTE | 2022-06-26 12:17 | P.PN ---
Subjective Date of Service: 06/26/22 Chief Complaint: Shortness of Breath No acute events overnight. She reports that her shortness of breath is persistent, but mildly improved. She is currently on 4 L nasal cannula, with SpO2 readings of 99 %. She denies any chest pain or palpitations. Review of Systems 10-point ROS is otherwise unremarkable Respiratory: Cough, Shortness of Breath, Wheezing Physical Examination - Vital Signs Temperature: 97.4 F Blood Pressure: 115/71 Pulse: 76 Respirations: 16 Pulse Ox (%): 92 Assessment And Plan - Plan - Physical Exam General: Alert, In no apparent distress, Oriented x3 HEENT: Atraumatic, PERRLA, Mucous membr. moist/pink, EOMI, Sclerae nonicteric Neck: Supple, JVD distended Respiratory: Diminished, Crackles/rales (bibasilar), faint end-expiratory wheezing Cardiovascular: Regular rate/rhythm, Normal S1 S2, No gallops, No rubs, No murmurs, Edema (2+ pitting) Capillary refill: <2 Seconds Gastrointestinal: Normal bowel sounds, Soft and benign, Non-distended, No tenderness, No rebound, No guarding Musculoskeletal: No clubbing Integumentary: No rashes Neurological: Normal speech, Cranial nerves 3-12 intact, Normal affect - Plan # Concern for Septic Shock likely secondary to Pneumonia She meets sepsis criteria based on HR > 90 bpm and RR > 20 breaths/min and the suspected source is pneumonia. Severe sepsis is suspected due to concern for tissue hypoperfusion/organ dysfunction based on acute respiratory failure requiring BiPAP and lactic acid > 2 mmol/L. Septic shock is suspected due to initial lactate > 4 mmol/L. - Sepsis order set was initiated - Chest x-ray = "new bilateral pulmonary edema or pneumonia" - Lactate was 6.5 -> 2.7 - Blood cultures drawn before antibiotics were given - Broad spectrum antibiotics started: Vancomycin + Piperacillin-Tazobactam - In regards to fluids: - 30 mL/kg of IV fluids was not administered given SBP > 90, MAP > 65 - She was not given IV fluids also due to concern for volume overload from congestive heart failure - Sepsis reassessment completed at 09:10 AM on 06/25/2022 # Acute Hypoxic Respiratory Failure - likely secondary to Pulmonary Edema and Pneumonia - Evaluation thus far: - D-Dimer = 1421 - Procalcitonin = 1.84 - ABG = pH 7.33, PCO2 40.3, PO2 331.0 - taken on BiPAP - Chest x-ray = "new bilateral pulmonary edema or pneumonia" - V/Q scan = "the patient has a low probability for a pulmonary embolism" - Management plan: - Consulted Pulmonary Medicine - recommendations appreciated - Consulted Respiratory Therapy - Supplemental oxygen to maintain SpO2 > 92% - Currently on 4 L NC - Started vancomycin, piperacillin-tazobactam to cover HCAP given recent admission - PRN benzonatate, guaifenesin - Encouraged incentive spirometry # Non-ST Segment Elevation Myocardial Infarction # Coronary Artery Disease s/p PCI to LCX (06/17/2022) # Hypertension - Evaluation thus far: - EKG: ST depressions in V3-V5, trend - Serial troponin - 13,195.9 -> 8949.1 -> 8191.6 - Ordered transthoracic echocardiogram - Chest x-ray = "new bilateral pulmonary edema or pneumonia" - Management plan: - Consult Cardiology and spoke with Dr. Frederick - recommendations appreciated - Furosemide 20 mg IV BID - Started heparin drip - S/P aspirin 324 mg PO x 1 in ED - Continue home aspirin, clopidogrel - Started atorvastatin - Hold metoprolol given concern for septic shock - Consider starting LADI-inhibitor/ARB if SG improves # Acute on Chronic Decompensated Congestive Heart Failure with Unknown Ejection Fraction - Consult Cardiology and spoke with Dr. Frederick - recommendations appreciated - Ordered transthoracic echocardiogram - NT-Pro BNP = 11,146 - S/P furosemide 40 mg IV x 1 in ED - Hold metoprolol given concern for septic shock - Daily weights - Strict I/O - Cardiac diet, 2 L fluid restriction, 2 g Na restriction # KDIGO Stage I Acute Kidney Injury - possibly Cardiorenal Syndrome - Nephrology consulted and spoke with Dr. Hannah - recommendations appreciated - Creatinine = 1.62 -> 1.33 (baseline creatinine ~0.9-1.0) - Urinalysis = 2+ glucose, trace protein - IV diuretics as mentioned above - Monitor creatinine and urine output - If worsening, obtain renal ultrasound - Renally dose medications # Hyperglycemia in Type II Diabetes Mellitus # Hyponatremia secondary to Hyperglycemia # Diabetic Neuropathy - Continue home insulin detemir, gabapentin - Correction scale insulin ordered - Hold home metformin while hospitalized # Metastatic Uterine/Ovarian Cancer previously on Chemotherapy and now on Hospice # Anemia of Chronic Disease - Spoke with [facility] Hospice nurse, Re - initially Ms. Lang wanted to leave and go back to hospice; however, ultimately she decided to be admitted for aggressive care - She has temporarily revoked her hospice - Continue home methadone, morphine, PRN hydrocodone-acetaminophen # Elevated LFTs Possible etiologies include congestive hepatopathy vs metastatic disease vs hepatic steatosis - RUQ ultrasound = "hepatic steatosis" - Monitor LFTs # Tobacco Use Disorder - Tobacco cessation counseling provided - Hold nicotine patch for now as this is not ideal in the middle of an acute [place] Ruben Cannon M.D.
[2022-06-26 13:38] LABS: Specific Gravity 1.017 (1.005-1.030); Urine Bilirubin NEGATIVE (Negative); Urine Blood Negative (Negative); Urine Clarity Clear (Clear); Urine Color Light-Yellow (Yellow); Urine Glucose TRACE (Negative); Urine Protein TRACE (Negative); Urine RBC <5 /HPF (None Seen); Urine Urobilinogen Normal (Normal); Urine pH 5.5 (5.0-7.0)
[2022-06-26 14:05] LABS: UR PROTEIN 36.7 mg/dL (<11.9); Urine Protein/Creatinine Ratio 0.51 ratio (<0.15)
[2022-06-26] MEDS: FUROSEMIDE 20 MG/ 2ML VIAL IV SCH ×2 (14:24→17:20)
--- NOTE | 2022-06-26 14:40 | RAD REPORT ---
EXAM DESCRIPTION: US - Renal Ultrasound-Complete - 06/26/2022 2:31 pm CLINICAL HISTORY: SG COMPARISON: Abdomen Pelvis W Contrast dated 04/27/2022 FINDINGS: The right kidney measures 12.5 x 4.5 x 6.5 cm. The left kidney measures 10.8 x 5.9 x 5.0 cm. Renal cortical thickness and echogenicity are normal. No hydronephrosis or suspicious renal mass. No bladder wall thickening or mass. No intraluminal stone or mass. IMPRESSION: No hydronephrosis or suspicious renal mass. No other significant findings.
--- NOTE | 2022-06-26 15:50 | PN ---
Date of Progress Note: 06/26/2022 Subjective: The patient was admitted with chest pain, shortness of breath, found to have hyponatremia and acute kidney injury. Acute kidney injury was multifactorial secondary to contrast/poor perfusion ATN, and toxic ATN. The patient was started on hydration. Kidney function starts being improving. GFR up to 48. Hyponatremia, improving. Physical Examination: Vital Signs: When I saw the patient, blood pressure 100/68, pulse of 80, afebrile. Chest: Clear to auscultation. Heart: S1, S2. Regular. Abdomen: Soft, nontender. Extremity: No edema. Neurologic: Alert. No focality. Laboratory Data: Sodium 130, potassium 3.6, bicarb 30, BUN 32, creatinine 1.3. GFR of 48. Uric acid 6.8. CK 192, albumin 2.6, corrected calcium is 10.2. Current Medications: The patient on include Zosyn, vancomycin, Plavix, methadone. Assessment And Plan: 1. Acute kidney injury secondary to contrast-induced nephropathy, poor perfusion, acute tubular necrosis, minimal proteinuria. Rhabdomyolysis has been ruled out. I am going to go ahead and get renal ultrasound to evaluate the chronicity of the disease and to rule out any obstructive uropathy. I am going to go ahead and start the patient on gentle hydration, and we will follow up the patient closely. 2. Hyponatremia looks to me more depletional supported with elevation in the uric acid. I going to go ahead and get urine electrolytes. Start the patient on normal saline. Advised the patient for fluid restriction and we will follow up. 3. Hypokalemia. I am going to go ahead and supplement. 4. Lung cancer with metastasis as by primary. Time spent examining the patient [id number], reviewing data, lab and radiology, discussing the case with the patient, discussing the case with sales team manager including nursing and hospitalist more than 35 minutes LAURENCE Voice ID: [id number] Report ID: [id number] DARLENE
--- NOTE | 2022-06-26 16:28 | PN ---
Date of Progress Note: 06/26/2022 Subjective: Seen by bedside. Stable. No chest pain. Review of Systems: No chest pain, shortness of breath, orthopnea, or cough. No nausea, vomiting, or diarrhea. No dysur ia, polyuria, or urinary urgency. All other systems were reviewed and they were negative. Physical Examination: Vital Signs: Reviewed. Head and Neck: Pupils are equal, reactive to light. Intact eye movements. No JVD. No cervical lym phadenopathy. Neck is supple. Thyroid is not enlarged. Lungs: Decreased breathing sounds with rhonchi bilaterally. No accessory muscle use or muscle retra ction. Heart: Regular rate and rhythm. No extra sounds. Abdomen: Soft, nontender. Bowel sounds positive. No organomegaly. No masses or hernia. No rigidi ty or rebound. Extremities: No clubbing or cyanosis. Intact pulses. Skin: No rashes. Neurologic: Alert, awake. No acute focal deficits appreciated. Investigations: Labs reviewed. Assessment And Recommendations: Elevated troponin. There is no chest pain. This could be residual troponin elevation after her acute heart attack or could be acute coronary syndrome. However, skip richard is not compliant with her medications and I have explained it to her that noncompliance will cause a further damage to the heart with the repetitive acute heart attacks and she understands. At this p oint, I will recommend medical management to be continued. Aspirin, Plavix, beta-valentina, high-dose statin, and no further intervention is recommended as the patient proving on multiple occasions that she is not compliant with the dual-anti platelet therapy. SR/MODL Voice ID: [id number] Report ID: [id number]
[2022-06-26 17:07] LABS: UR SODIUM < 15 mmol/L (27-287)
[2022-06-26] MEDS: METHADONE HCL 10 MG TAB PO SCH (17:20)
[2022-06-26] MEDS: ATORVASTATIN 40 MG TAB PO SCH (20:11)
[2022-06-26] MEDS ORDERED: VANCOMYCIN 1.5 GM in NA CHLORIDE 0.9% 500 ML IVPB SCH (23:00)
[2022-06-27] MEDS: PIPER TAZO 3.375 GM in NA CHLORIDE 0.9% 100 ML IV SCH ×3 (00:09→16:38)
[2022-06-27] MEDS: LEVALBUTEROL 1.25 MG/3 ML NEB NEB SCH ×4 (02:00→20:00)
[2022-06-27] MEDS: HEPARIN/D5W 25,000 UNIT/500 ML BAG IV SCH ×2 (03:33→18:53)
[2022-06-27] MEDS ORDERED: ACETAMINOPHEN 500 MG TAB PO PRN (03:48)
[2022-06-27 05:06] LABS: Absolute Lymphocytes (CBC) 1.4 K/uL (0.7-4.9); Hematocrit 25.6 % (36.0-45.0); Lymphocytes % 22.3 % (15.3-44.8); MCV 95.6 fL (80-100); MPV 8.5 fL (7.6-11.3); RBC Red Blood Cell Count 2.68 M/uL (3.86-4.86)
[2022-06-27 05:23] LABS: Albumin 2.5 g/dL (3.4-5.0); Bilirubin Total 0.6 mg/dL (0.2-1.0); Phosphorus 2.4 mg/dL (2.5-4.9); Potassium 3.6 mmol/L (3.5-5.1); Protein, Total 7.3 g/dL (6.4-8.2)
[2022-06-27] MEDS: INSULIN -REGULAR HUMAN 50 UNIT/0.5 ML ML SQ SCH ×4 (07:30→21:05)
[2022-06-27] MEDS: FUROSEMIDE 20 MG/ 2ML VIAL IV SCH ×2 (08:11→16:37)
[2022-06-27] MEDS: INSULIN GLARGINE 100 UNIT/ML SQ SCH (08:11)
[2022-06-27] MEDS: CLOPIDOGREL 75 MG TABLET PO SCH (08:12)
[2022-06-27] MEDS: ASPIRIN 81 MG CHEWABLE TABLET PO SCH (08:12)
[2022-06-27] MEDS: MORPHINE 15 MG IR TAB PO SCH ×2 (08:12→21:05)
[2022-06-27] MEDS: GABAPENTIN 400 MG CAP PO SCH ×2 (08:12→21:05)
[2022-06-27] MEDS: NYSTATIN 500,000 UNIT/5 ML UDC PO SCH (08:15)
[2022-06-27] MEDS: NICOTINE 14 MG/PAT TD SCH (10:02)
[2022-06-27] MEDS: HYDROCODONE/APAP 10/325 TAB PO PRN ×2 (10:11→17:40)
[2022-06-27] MEDS: guaiFENesin 100 MG/5 ML UCUP PO PRN ×2 (12:17→17:11)
[2022-06-27] MEDS: BENZONATATE 100 MG CAP PO PRN ×2 (12:17→19:14)
[2022-06-27] MEDS ORDERED: POTASSIUM CL SA 10 MEQ TAB PO ONE (13:00)
--- NOTE | 2022-06-27 13:40 | PN ---
Date of Progress Note: 06/27/2022 Subjective: The patient was admitted with acute kidney injury and hyponatremia. The patient had metastatic cancer. The patient started on hydration. Sodium normalized. Physical Examination: Vital Signs: Blood pressure 119/75, pulse of 81, afebrile. The patient had good urine output of 1700. We advised the patient for fluid restriction. Chest: Clear to auscultation. Heart: S1, S2. Regular. Abdomen: Soft, nontender. Extremity: No edema. Neurological: Alert, oriented x3. No focal. Laboratory Data: Hemoglobin 8.6. Sodium 131, potassium 3.6, bicarb 29, BUN 28, creatinine 1.4, calcium 8.9, phosphorus 2.4. Current Medications: The patient on include; 1. Zosyn. 2. Vancomycin. 3. Plavix. 4. Tylenol. 5. Gabapentin. 6. Methadone. Assessment And Plan: 1. Hyponatremia, depletional, recovering/paraneoplastic, recovered, acceptable range of sodium currently. We will continue on fluid restriction and we will follow up the patient. The patient cleared from the Renal standpoint for discharge planning. 2. Acute kidney injury secondary to prerenal, recovered, plateaued. 3. Hypokalemia. We will supplement. 4. Hypophosphatemia. We will monitor the patient. No need for supplement for the time being. 5. Lung cancer with metastasis as by primary. The patient cleared from the Renal standpoint for discharge planning. Time spent examining the patient [id number], reviewing data, lab and radiology, discussing the case with the patient, discussing the case with marine steam fitter including nursing and hospitalist more than 35 minutes LAURENCE Voice ID: [id number] Report ID: [id number] DARLENE
--- NOTE | 2022-06-27 15:45 | P.PN ---
Subjective Date of Service: 06/27/22 Chief Complaint: Shortness of Breath No acute events overnight. She reports that her shortness of breath is improved. She is currently on 2 L nasal cannula, with SpO2 readings of 93 %. She denies any chest pain or palpitations. She states that she is craving cigarretes and requests a nicotine patch, which has been provided. Review of Systems 10-point ROS is otherwise unremarkable Respiratory: Cough, Shortness of Breath Physical Examination - Vital Signs Temperature: 96.4 F Blood Pressure: 112/74 Pulse: 80 Respirations: 18 Pulse Ox (%): 93 Assessment And Plan - Plan - Physical Exam General: Alert, In no apparent distress, Oriented x3 HEENT: Atraumatic, PERRLA, Mucous membr. moist/pink, EOMI, Sclerae nonicteric Neck: Supple, JVD distended Respiratory: SpO2 93 % on 2 L NC. Diminished, Crackles/rales (bibasilar), faint end-expiratory wheezing Cardiovascular: Regular rate/rhythm, Normal S1 S2, No gallops, No rubs, No murmurs, Edema (1-2+ pitting) Capillary refill: <2 Seconds Gastrointestinal: Normal bowel sounds, Soft and benign, Non-distended, No tenderness, No rebound, No guarding Musculoskeletal: No clubbing Integumentary: No rashes Neurological: Normal speech, Cranial nerves 3-12 intact, Normal affect - Plan # Concern for Septic Shock likely secondary to Pneumonia She meets sepsis criteria based on HR > 90 bpm and RR > 20 breaths/min and the suspected source is pneumonia. Severe sepsis is suspected due to concern for tissue hypoperfusion/organ dysfunction based on acute respiratory failure requiring BiPAP and lactic acid > 2 mmol/L. Septic shock is suspected due to initial lactate > 4 mmol/L. - Sepsis order set was initiated - Chest x-ray = "new bilateral pulmonary edema or pneumonia" - Lactate was 6.5 -> 2.7 - Blood cultures drawn before antibiotics were given - Broad spectrum antibiotics started: Vancomycin + Piperacillin-Tazobactam - In regards to fluids: - 30 mL/kg of IV fluids was not administered given SBP > 90, MAP > 65 - She was not given IV fluids also due to concern for volume overload from congestive heart failure - Sepsis reassessment completed at 09:10 AM on 06/25/2022 # Acute Hypoxic Respiratory Failure - likely secondary to Pulmonary Edema and Pneumonia - Evaluation thus far: - D-Dimer = 1421 - Procalcitonin = 1.84 - ABG = pH 7.33, PCO2 40.3, PO2 331.0 - taken on BiPAP - Chest x-ray = "new bilateral pulmonary edema or pneumonia" - V/Q scan = "the patient has a low probability for a pulmonary embolism" - Management plan: - Consulted Pulmonary Medicine - recommendations appreciated - Consulted Respiratory Therapy - Supplemental oxygen to maintain SpO2 > 92% - Currently on 2 L NC - Started vancomycin, piperacillin-tazobactam to cover HCAP given recent admission - PRN benzonatate, guaifenesin - Encouraged incentive spirometry # Non-ST Segment Elevation Myocardial Infarction # Coronary Artery Disease s/p PCI to LCX (06/17/2022) # Hypertension - Evaluation thus far: - EKG: ST depressions in V3-V5, trend - Serial troponin - 13,195.9 -> 8949.1 -> 8191.6 - Ordered transthoracic echocardiogram - Chest x-ray = "new bilateral pulmonary edema or pneumonia" - Management plan: - Consult Cardiology and spoke with Dr. Frederick - recommendations appreciated - Furosemide 20 mg IV BID - Started heparin drip - S/P aspirin 324 mg PO x 1 in ED - Continue home aspirin, clopidogrel - Started atorvastatin - Hold metoprolol given concern for septic shock - Consider starting LADI-inhibitor/ARB if SG improves # Acute on Chronic Decompensated Congestive Heart Failure with Unknown Ejection Fraction - Consult Cardiology and spoke with Dr. Frederick - recommendations appreciated - Ordered transthoracic echocardiogram - NT-Pro BNP = 11,146 - S/P furosemide 40 mg IV x 1 in ED - Hold metoprolol given concern for septic shock - Daily weights - Strict I/O - Cardiac diet, 2 L fluid restriction, 2 g Na restriction # KDIGO Stage I Acute Kidney Injury - possibly Cardiorenal Syndrome - Nephrology consulted and spoke with Dr. Hannah - recommendations appreciated - Creatinine = 1.62 -> 1.33 -> 1.45 (baseline creatinine ~0.9-1.0) - Urinalysis = 2+ glucose, trace protein - IV diuretics as mentioned above - Monitor creatinine and urine output - If worsening, obtain renal ultrasound - Renally dose medications # Hyperglycemia in Type II Diabetes Mellitus # Hyponatremia secondary to Hyperglycemia # Diabetic Neuropathy - Continue home insulin detemir, gabapentin - Correction scale insulin ordered - Hold home metformin while hospitalized # Metastatic Uterine/Ovarian Cancer previously on Chemotherapy and now on Hospice # Anemia of Chronic Disease - Spoke with [facility] nurse, Re - initially Ms. Lang wanted to leave and go back to hospice; however, ultimately she decided to be admitted for aggressive care - She has temporarily revoked her hospice - Continue home methadone, morphine, PRN hydrocodone-acetaminophen # Elevated LFTs Possible etiologies include congestive hepatopathy vs metastatic disease vs hepatic steatosis - RUQ ultrasound = "hepatic steatosis" - Monitor LFTs # Tobacco Use Disorder - Tobacco cessation counseling provided - Hold nicotine patch for now as this is not ideal in the middle of an acute [place] Ruben Cannon M.D.
[2022-06-27] MEDS: METHADONE HCL 10 MG TAB PO SCH ×2 (16:38→17:12)
[2022-06-27] MEDS ORDERED: LORazepam 2 MG/ML VIAL IV ONE (19:39)
[2022-06-27] MEDS ORDERED: LORazepam 2 MG/ML VIAL ONE (19:44)
[2022-06-27] MEDS: ATORVASTATIN 40 MG TAB PO SCH (21:06)
[2022-06-27] MEDS: VANCOMYCIN 1.5 GM in NA CHLORIDE 0.9% 500 ML IVPB SCH (23:08)
[2022-06-28] MEDS: PIPER TAZO 3.375 GM in NA CHLORIDE 0.9% 100 ML IV SCH ×3 (00:55→16:46)
[2022-06-28] MEDS: LEVALBUTEROL 1.25 MG/3 ML NEB NEB SCH ×4 (01:40→19:50)
[2022-06-28] MEDS: guaiFENesin 100 MG/5 ML UCUP PO PRN ×2 (04:14→18:06)
[2022-06-28] MEDS: HYDROCODONE/APAP 10/325 TAB PO PRN ×2 (04:14→22:03)
[2022-06-28 05:06] LABS: Absolute Lymphocytes (CBC) 0.8 K/uL (0.7-4.9); Hematocrit 25.2 % (36.0-45.0); Lymphocytes % 11.2 % (15.3-44.8); MCV 95.3 fL (80-100); MPV 8.5 fL (7.6-11.3); RBC Red Blood Cell Count 2.64 M/uL (3.86-4.86)
[2022-06-28 05:13] LABS: Albumin 2.5 g/dL (3.4-5.0); Bilirubin Total 0.6 mg/dL (0.2-1.0); Phosphorus 3.1 mg/dL (2.5-4.9); Potassium 4.6 mmol/L (3.5-5.1); Protein, Total 7.2 g/dL (6.4-8.2)
--- NOTE | 2022-06-28 07:48 | ECHO ---
HEIGHT: 5 ft 4 in WEIGHT: 169 lb 0.102 oz DATE OF STUDY: 06/25/[address]: Ruben Cannon MD 2-DIMENSIONAL: YES M.MODE: YES DOPPLER: YES COLOR FLOW: YES TDS: PORTABLE: YES DEFINITY: BUBBLE STUDY: DIAGNOSIS: CONGESTIVE HEART FAILURE CARDIAC HISTORY: CATHERIZATION: SURGERY: PROSTHETIC VALVE: PACEMAKER: MEASUREMENTS (cm) DIASTOLIC (NORMALS) SYSTOLIC (NORMALS) IVSd 1.1 (0.6-1.2) LA Diam 3.4 (1.9-4.0) LVEF 50-55% LVIDd 5.0 (3.5-5.7) LVIDs 4.3 (2.0-3.5) %FS 14% LVPWd 1.1 (0.6-1.2) Ao Diam 2.5 (2.0-3.7) 2 DIMENSIONAL ASSESSMENT: RIGHT ATRIUM: NORMAL LEFT ATRIUM: NORMAL RIGHT VENTRICLE: NORMAL LEFT VENTRICLE: NORMAL TRICUSPID VALVE: MILD TRICUSPID REGURGITATION MITRAL VALVE: MILD MITRAL REGURGITATION PULMONIC VALVE: NORMAL AORTIC VALVE: NORMAL PERICARDIAL EFFUSION: NONE AORTIC ROOT: NORMAL LEFT VENTRICULAR WALL MOTION: MILD GLOBAL HYPOKINESIS DOPPLER/COLOR FLOW: SEE BELOW COMMENTS: LOW NORMAL LEFT VENTRICULAR EJECTION FRACTION 50-55%. MILD GLOBAL HYPOKINESIS. MILD MITRAL REGURGITATION. MILD TRICUSPID REGURGITATION. DIASTOLIC DYSFUNCTION. TECHNOLOGIST: CARMELA OCAMPO
[2022-06-28] MEDS: HEPARIN/D5W 25,000 UNIT/500 ML BAG IV SCH ×2 (08:14→23:10)
[2022-06-28] MEDS: NICOTINE 14 MG/PAT TD SCH (09:02)
[2022-06-28] MEDS: MORPHINE 15 MG IR TAB PO SCH ×2 (09:02→20:03)
[2022-06-28] MEDS: NYSTATIN 500,000 UNIT/5 ML UDC PO SCH (09:02)
[2022-06-28] MEDS: GABAPENTIN 400 MG CAP PO SCH ×2 (09:03→20:03)
[2022-06-28] MEDS: ASPIRIN 81 MG CHEWABLE TABLET PO SCH (09:03)
[2022-06-28] MEDS: FUROSEMIDE 20 MG/ 2ML VIAL IV SCH ×2 (09:03→16:44)
[2022-06-28] MEDS: INSULIN GLARGINE 100 UNIT/ML SQ SCH (09:04)
[2022-06-28] MEDS: INSULIN -REGULAR HUMAN 50 UNIT/0.5 ML ML SQ SCH ×4 (09:04→20:40)
[2022-06-28] MEDS: CLOPIDOGREL 75 MG TABLET PO SCH (09:04)
[2022-06-28] MEDS ORDERED: LORazepam 2 MG/ML VIAL IV ONE (11:03)
[2022-06-28] MEDS: FLUOXETINE 20 MG CAP PO SCH (11:38)
[2022-06-28] MEDS: clonazePAM 0.5 MG TAB PO SCH ×2 (14:04→20:03)
[2022-06-28] MEDS: METHADONE HCL 10 MG TAB PO SCH (16:45)
[2022-06-28] MEDS: BENZONATATE 100 MG CAP PO PRN (16:45)
[2022-06-28] MEDS ORDERED: DIAZEPAM 5 MG TABLET PO PRN (19:38)
[2022-06-28] MEDS: ATORVASTATIN 40 MG TAB PO SCH (20:03)
--- NOTE | 2022-06-28 22:47 | PN ---
Date of Progress Note: 06/28/2022 Subjective: Acute kidney injury complicated by hyponatremia. Patient has multiple medical problems. She remains in ICU. Patient has history of metastatic cancer. She was started on IV fluids and so dium level and has improved. Review of Systems: Denies fever, chills. Physical Examination: Lungs: Clear to auscultation bilaterally. Heart: S1 and S2. Abdomen: Soft. Extremities: No edema. Laboratory Data: Sodium 131, potassium 3.6, bicarbonate 29, BUN 28, creatinine 1.4, calcium 8.9. Impression And Plan: 1.Hyponatremia secondary to multiple causes including low solute intake. 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 Pat ient tolerated sodium chloride and sodium level has improved. Patient was found also with hypophosph atemia and hypokalemia, which is the cause of solute depletion and patient will advance p.o. intake a s tolerated. 2.Hypophosphatemia. Continue to monitor phosphorus level and advance replacement. 3.Lung cancer, metastatic by primary team. Continue current recommendation from primary team. 4.Patient has sepsis and patient was started on vancomycin. Monitor vancomycin level. EB/MODL Voice ID: [id number] Report ID: [id number]
[2022-06-28] MEDS: VANCOMYCIN 1.5 GM in NA CHLORIDE 0.9% 500 ML IVPB SCH (23:10)
[2022-06-29] MEDS: PIPER TAZO 3.375 GM in NA CHLORIDE 0.9% 100 ML IV SCH ×2 (01:24→08:37)
[2022-06-29] MEDS: LEVALBUTEROL 1.25 MG/3 ML NEB NEB SCH ×3 (01:40→12:57)
[2022-06-29 05:00] LABS: Albumin 2.2 g/dL (3.4-5.0); Phosphorus 3.1 mg/dL (2.5-4.9); Potassium 3.6 mmol/L (3.5-5.1)
[2022-06-29] MEDS: INSULIN -REGULAR HUMAN 50 UNIT/0.5 ML ML SQ SCH ×2 (07:30→13:05)
[2022-06-29] MEDS: ASPIRIN 81 MG CHEWABLE TABLET PO SCH (08:34)
[2022-06-29] MEDS: MORPHINE 15 MG IR TAB PO SCH (08:35)
[2022-06-29] MEDS: FUROSEMIDE 20 MG/ 2ML VIAL IV SCH (08:37)
[2022-06-29] MEDS: GABAPENTIN 400 MG CAP PO SCH (08:38)
[2022-06-29] MEDS: CLOPIDOGREL 75 MG TABLET PO SCH (08:38)
[2022-06-29] MEDS: clonazePAM 0.5 MG TAB PO SCH ×2 (08:38→14:00)
[2022-06-29] MEDS: FLUOXETINE 20 MG CAP PO SCH (08:38)
[2022-06-29] MEDS: NICOTINE 14 MG/PAT TD SCH (08:39)
[2022-06-29] MEDS: NYSTATIN 500,000 UNIT/5 ML UDC PO SCH (08:39)
[2022-06-29] MEDS: INSULIN GLARGINE 100 UNIT/ML SQ SCH ×2 (09:00→13:05)
[2022-06-29 10:52] VITALS: TEMP 97.2
[2022-06-29] MEDS ORDERED: FUROSEMIDE 40 MG/4 ML VIAL IV ONE (10:56)
[2022-06-29] MEDS ORDERED: POTASSIUM CL SA 10 MEQ TAB PO ONE (10:56)
--- NOTE | 2022-06-29 12:40 | RAD REPORT ---
EXAM DESCRIPTION: RAD - Chest Single View - 06/25/2022 6:15 am TECHNIQUE: Portable AP chest x-ray. Comparison: Chest x-ray June 01, 2022. Chest CT June 17. Clinical history: DYSPNEA. FINDINGS: Heart size: The heart size is mildly enlarged. Lungs: New moderate airspace opacities are seen predominating in the upper lung trevino consistent wit h asymmetric pulmonary edema or pneumonia. Pleura: No pleural effusion. No pneumothorax. Mediastinum and maxx: Unremarkable. Musculoskeletal: Unremarkable. Support tubings: None. IMPRESSION: 1. New bilateral pulmonary edema or pneumonia. Electronically signed by: Mo Turcios MD 06/25/2022 7:26 AM CDT Due to temporary technical issues with the PACS/Fluency reporting system, reports are being signed by the in house radiologists without review as a courtesy to insure prompt reporting. The interpreting radiologist is fully responsible for the content of the report.
--- NOTE | 2022-06-29 12:50 | PN ---
Date of Progress Note: 06/29/2022 Subjective: The patient was admitted with acute hyponatremia and acute kidney injury secondary to pr erenal. The patient was started on fluid restriction, sodium started being trending up. The patient feeling better. Physical Examination: Vital Signs: Blood pressure 113/68, pulse of 74. The patient had good urine output of 2300. Chest: Clear to auscultation. Heart: S1, S2. Regular. Abdomen: Soft, nontender. Extremities: Plus edema. Neurologic: Alert. No focality. Laboratory Data: WBC 7.3, H and H 8.5/25.2. Sodium 135, potassium 3.6, bicarb 30, BUN 19, creatinin e 1, calcium 8.9, phosphorus 3.1, albumin 2.2. Corrected calcium is 10.4. Current Medications: The patient on include Zosyn, vancomycin, Plavix, heparin drip, Tylenol, flucon azole, methadone. Assessment And Plan: 1.Acute kidney injury secondary to prerenal, recovered, resolved. Slightly on the over volume side. I am going to go ahead and give the patient a single dose of Lasix and we will follow up. 2.Hypokalemia. We will supplement. 3.Hyponatremia secondary to paraneoplastic/depletional, recovered. 4.Edema, minimal proteinuria. I am going to go ahead and send for TSH. We will give single dose of Lasix today and we will follow up. 5.Deconditioning. Continue PT/OT. SUZIE/MATT Voice ID: [id number] Report ID: [id number]
[2022-06-29 13:20] VITALS: BP 125/82
[2022-06-29 15:19] VITALS: O2SAT 94
== END 2022-06-29 16:35 | disposition hospice, home (50) | DRG 871 ==
LOC: ER 05:39 → 3RD-ICU 09:37
PROVIDERS: ADMIT Internal Medicine; ATTEND Hospitalist
PROC: 5A09557 Assistance with Respiratory Ventilation, Greater than 96 Consecutive Hours, Continuous Positive Airway Pressure (ICD-10-PCS; principal; 2022-06-25)
DX: A41.9 Sepsis, unspecified organism (principal); I21.4 Non-ST elevation (NSTEMI) myocardial infarction; J18.9 Pneumonia, unspecified organism; J96.01 Acute respiratory failure with hypoxia; R65.21 Severe sepsis with septic shock; N17.0 Acute kidney failure with tubular necrosis; E87.1 Hypo-osmolality and hyponatremia; C79.82 Secondary malignant neoplasm of genital organs; E11.65 Type 2 diabetes mellitus with hyperglycemia; E11.40 Type 2 diabetes mellitus with diabetic neuropathy, unspecified; D63.8 Anemia in other chronic diseases classified elsewhere; I11.0 Hypertensive heart disease with heart failure; I50.9 Heart failure, unspecified; E83.39 Other disorders of phosphorus metabolism; E87.6 Hypokalemia; I25.10 Atherosclerotic heart disease of native coronary artery without angina pectoris; F17.210 Nicotine dependence, cigarettes, uncomplicated; I25.2 Old myocardial infarction; R79.89 Other specified abnormal findings of blood chemistry; Z95.5 Presence of coronary angioplasty implant and graft; Z79.4 Long term (current) use of insulin; Z79.02 Long term (current) use of antithrombotics/antiplatelets; Z85.43 Personal history of malignant neoplasm of ovary; Z79.82 Long term (current) use of aspirin; Z79.84 Long term (current) use of oral hypoglycemic drugs; Z85.118 Personal history of other malignant neoplasm of bronchus and lung; Z91.199 Patient's noncompliance with other medical treatment and regimen due to unspecified reason; Z79.899 Other long term (current) drug therapy; Z20.822 Contact with and (suspected) exposure to COVID-19
CPT/HCPCS: 36415; 71045; 76705; 76770; 78582; 80048; 80053; 80069; 80202; 81001; 82550; 82570; 82805; 82947; 83605; 83735; 83880; 83930; 83935; 84100; 84132; 84145; 84156; 84300; 84484; 84550; 85025; 85379; 85610; 85730; 87040; 87804; 93306; 93970; 94010; 94660; 96365; 96375; 97116; 97161; 99285; A9540; A9558; J1644; J1815; J1940; J2543; J3370; J3475; J7040; J7614; U0003